=== PATIENT | female | born 1970 | race Caucasian/White ===

== ENCOUNTER 2020-09-18 13:39 | Outpatient (REF) | payer MEDICAID, SELFPAY ==
[2020-09-18 15:13] LABS: Free T4 (Free Thyroxine) 0.93 ng/dL (0.71-1.85); Thyroid Stimulating Hormone 1.54 mIU/mL (0.32-4.0)
== END 2020-09-18 13:40 | disposition home or self-care (01) ==
LOC: HO.LAB 13:39
PROVIDERS: PCP Internal Medicine Geriatric Medicine; Visit Provider Internal Medicine Endocrinology, Diabetes & Metabolism
DX: E03.9 Hypothyroidism, unspecified (principal)
CPT/HCPCS: 84439; 84443

== ENCOUNTER → 2020-09-24 08:42 | Outpatient (BNVA) | payer MEDICAID, SELFPAY | PROVIDERS: PCP Internal Medicine Geriatric Medicine; Referring Provider Internal Medicine Geriatric Medicine; Visit Provider Internal Medicine Endocrinology, Diabetes & Metabolism | DX: E03.8 Other specified hypothyroidism (principal); E06.3 Autoimmune thyroiditis; E55.9 Vitamin D deficiency, unspecified; Z79.899 Other long term (current) drug therapy | CPT/HCPCS: 99212 ==

== ENCOUNTER 2020-12-15 14:25 | Outpatient (REF) | payer MEDICAID, SELFPAY ==
--- NOTE | 2020-12-15 | US_ITS ---
EXAMINATION: US RETROPERITONEAL LIMITED (RENAL ONLY) CLINICAL INFORMATION: History of renal calculi.. COMPARISON: CT abdomen and pelvis dated 03/25/2020; renal ultrasound dated 03/13/2020. TECHNIQUE: Real-time imaging of the kidneys. FINDINGS: RIGHT KIDNEY: 1.8 x 5.9 x 6.7 cm (SAG x AP x TRV). The kidney is normal in size, contour, and echogenicity. Renal cortical thickness is normal. No calculi or focal parenchymal lesions. There is mild hydronephrosis. LEFT KIDNEY: 10.0 x 5.3 x 5.4 cm (SAG x AP x TRV). The kidney is normal in size, contour, and echogenicity. Renal cortical thickness is normal. No calculi or focal parenchymal lesions. No hydronephrosis. US/US renal BI IMPRESSION: There is mild right hydronephrosis. No left hydronephrosis is seen. No renal calculus is seen bilaterally.
== END 2020-12-15 14:26 | disposition home or self-care (01) ==
LOC: HO.US 14:25
PROVIDERS: PCP Internal Medicine Geriatric Medicine; Visit Provider Urology
DX: N20.0 Calculus of kidney (principal)
CPT/HCPCS: 76775

== ENCOUNTER → 2021-01-01 08:36 | Outpatient (BNVA) | payer MEDICAID, SELFPAY | PROVIDERS: PCP Internal Medicine Geriatric Medicine; Visit Provider Obstetrics & Gynecology | DX: Z01.419 Encounter for gynecological examination (general) (routine) without abnormal findings (principal); N92.1 Excessive and frequent menstruation with irregular cycle; N89.8 Other specified noninflammatory disorders of vagina; N39.0 Urinary tract infection, site not specified; R31.29 Other microscopic hematuria | CPT/HCPCS: 81002 ==

== ENCOUNTER 2021-01-01 10:31 | Outpatient (REF) | payer MEDICAID, SELFPAY ==
[2021-01-01 12:03] LABS: Free T4 (Free Thyroxine) 0.91 ng/dL (0.71-1.85); Thyroid Stimulating Hormone 2.17 uIU/mL (0.32-4.0)
== END 2021-01-01 10:32 | disposition home or self-care (01) ==
LOC: HO.10HDL 10:31
PROVIDERS: Visit Provider Internal Medicine Endocrinology, Diabetes & Metabolism
DX: Z01.419 Encounter for gynecological examination (general) (routine) without abnormal findings (principal); E55.9 Vitamin D deficiency, unspecified; N89.8 Other specified noninflammatory disorders of vagina; N39.0 Urinary tract infection, site not specified; Z11.3 Encounter for screening for infections with a predominantly sexual mode of transmission; Z11.8 Encounter for screening for other infectious and parasitic diseases
CPT/HCPCS: 36415; 84439; 84443

== ENCOUNTER 2021-01-01 15:29 | Outpatient (REF) | payer MEDICAID, SELFPAY ==
[2021-01-02 08:24] LABS: BV Int Neg Control Negative (Negative); BV Int Pos Control Positive (Positive)
[2021-01-02 14:56] LABS: C. trachomatis RNA TMA NOT DETECTED (NOT DETECTED); N. gonorrhoeae RNA TMA NOT DETECTED (NOT DETECTED)
== END 2021-01-01 15:30 | disposition home or self-care (01) ==
LOC: HO.LNP 15:29
PROVIDERS: Visit Provider Obstetrics & Gynecology
DX: Z01.419 Encounter for gynecological examination (general) (routine) without abnormal findings (principal); E55.9 Vitamin D deficiency, unspecified; N89.8 Other specified noninflammatory disorders of vagina; N39.0 Urinary tract infection, site not specified; Z11.3 Encounter for screening for infections with a predominantly sexual mode of transmission; Z11.8 Encounter for screening for other infectious and parasitic diseases
CPT/HCPCS: 87086; 87147; 87480; 87491; 87510; 87591; 87660

== ENCOUNTER 2021-01-06 09:43 | Outpatient (REF) | payer MEDICAID, SELFPAY ==
--- NOTE | ~2021-01-06 | US_ITS ---
EXAMINATION: US PELVIS, COMPLETE US TRANSVAGINAL CLINICAL INFORMATION: Irregular menses. Clinical history of endometrial hyperplasia. Patient has Mirena IUD. COMPARISON: 03/13/2020 TECHNIQUE: Transabdominal and transvaginal imaging was performed. FINDINGS: Uterus is retroverted and retroflexed, measuring 9.2 x 5.8 x 5.9 cm. Hypoechoic lesion in the fundus measuring 0.6 x 0.5 x 0.7 cm. Endometrial thickness is difficult to measure given the presence of IUD, estimated to be approximately 1.1 cm. There is an IUD present, which appears to be appropriately positioned within the endometrial canal. Right ovary measures 2.2 x 1 x 1 cm. Volume 1.2 mL. Vascular flow demonstrated. Left ovary measures 3.4 x 2.4 x 3.4 cm. Volume 13.9 mL. Vascular flow demonstrated. There is a complex heterogeneous focus with mixed isoechoic and hypoechoic echotexture, in the left ovary measuring 2.9 x 2.3 x 2.8 cm. Some internal vascularity is seen. This finding is new as compared to the prior ultrasound of 03/13/2020. No free fluid in the cul-de-sac. US/US pelvic complete IMPRESSION: 1. Complex heterogeneous lesion in the left ovary measuring 2.9 x 2.3 x 2.8 cm. There is some internal vascularity noted. This finding is new as compared to the prior ultrasound of 03/13/2020. This could represent a complex cystic lesion versus a solid lesion. Recommend followup ultrasound in 6 weeks for reassessment. 2. IUD present, which appears appropriately positioned within the endometrial canal. As a result, the endometrial thickness is difficult to measure, estimated approximately 1.1 cm. 3. Small nonspecific hypoechoic lesion in the uterine fundus measuring 0.6 x 0.5 x 0.7 cm. This could represent a small fibroid.
--- NOTE | ~2021-01-06 | US_ITS ---
EXAMINATION: US PELVIS, COMPLETE US TRANSVAGINAL CLINICAL INFORMATION: Irregular menses. Clinical history of endometrial hyperplasia. Patient has Mirena IUD. COMPARISON: 03/13/2020 TECHNIQUE: Transabdominal and transvaginal imaging was performed. FINDINGS: Uterus is retroverted and retroflexed, measuring 9.2 x 5.8 x 5.9 cm. Hypoechoic lesion in the fundus measuring 0.6 x 0.5 x 0.7 cm. Endometrial thickness is difficult to measure given the presence of IUD, estimated to be approximately 1.1 cm. There is an IUD present, which appears to be appropriately positioned within the endometrial canal. Right ovary measures 2.2 x 1 x 1 cm. Volume 1.2 mL. Vascular flow demonstrated. Left ovary measures 3.4 x 2.4 x 3.4 cm. Volume 13.9 mL. Vascular flow demonstrated. There is a complex heterogeneous focus with mixed isoechoic and hypoechoic echotexture, in the left ovary measuring 2.9 x 2.3 x 2.8 cm. Some internal vascularity is seen. This finding is new as compared to the prior ultrasound of 03/13/2020. No free fluid in the cul-de-sac. US/US transvaginal IMPRESSION: 1. Complex heterogeneous lesion in the left ovary measuring 2.9 x 2.3 x 2.8 cm. There is some internal vascularity noted. This finding is new as compared to the prior ultrasound of 03/13/2020. This could represent a complex cystic lesion versus a solid lesion. Recommend followup ultrasound in 6 weeks for reassessment. 2. IUD present, which appears appropriately positioned within the endometrial canal. As a result, the endometrial thickness is difficult to measure, estimated approximately 1.1 cm. 3. Small nonspecific hypoechoic lesion in the uterine fundus measuring 0.6 x 0.5 x 0.7 cm. This could represent a small fibroid.
== END 2021-01-06 09:44 | disposition home or self-care (01) ==
LOC: HO.HMGCX 09:43
PROVIDERS: Visit Provider Obstetrics & Gynecology
DX: N92.1 Excessive and frequent menstruation with irregular cycle (principal)
CPT/HCPCS: 76830; 76856

== ENCOUNTER 2021-01-12 07:44 | Outpatient (REF) | payer MEDICAID, SELFPAY ==
[2021-01-12 10:40] LABS: HCG Quantitative < 2 mIU/mL; Thyroid Stimulating Hormone 1.35 uIU/mL (0.32-4.0)
== END 2021-01-12 07:45 | disposition home or self-care (01) ==
LOC: HO.LAB 07:44
PROVIDERS: PCP Internal Medicine Geriatric Medicine; Visit Provider Obstetrics & Gynecology
DX: N92.1 Excessive and frequent menstruation with irregular cycle (principal); R31.29 Other microscopic hematuria; R39.15 Urgency of urination
CPT/HCPCS: 36415; 58100; 81002; 84443; 84702; 87086; 88305; 99212

== ENCOUNTER 2021-01-17 11:58 | Emergency (ER) | payer MEDICAID, SELFPAY ==
--- NOTE | ~2021-01-17 | CT_ITS ---
EXAMINATION: CT ABDOMEN AND PELVIS WITHOUT CONTRAST CLINICAL INFORMATION: Right-sided flank pain. COMPARISON: Most recent prior CT of the abdomen and pelvis done on 03/25/2020. TECHNIQUE: Multidetector volumetric imaging was performed from the superior aspect of the liver through the pubic symphysis. Sagittal and coronal reformatted images were obtained on the technologist's workstation. This CT examination was performed using dose optimization techniques as appropriate, variously including the following: *Automated exposure control *Adjustment of mA and/or kV according to patient size (this includes techniques or standardized protocols for targeted exams where dose is matched to indication/reason for exam; i.e. extremities or head) *Use of iterative reconstruction technique DLP: 469.0 mGy-cm FINDINGS: LUNG BASES: The visualized lung bases are unremarkable. LIVER, GALLBLADDER, AND BILIARY TREE: The liver is normal in size, shape, and attenuation. No focal hepatic lesion or biliary ductal dilatation is present. The gallbladder is unremarkable with no evidence of radiopaque gallstones, gallbladder wall thickening, or obvious pericholecystic inflammatory changes. PANCREAS: Unremarkable. SPLEEN: Unremarkable. ADRENAL GLANDS: Unremarkable. KIDNEYS AND URETERS: The kidneys are normal in size, shape, and attenuation. No hydronephrosis, hydroureter, or calculi seen. No perinephric stranding. Previously documented extrarenal pelvis on the right appear unchanged. BLADDER: Suboptimally distended, grossly appears unremarkable. GASTROINTESTINAL TRACT: Interval development of pericolonic inflammatory changes are noted within the proximal part of the posterior aspect of the ascending colon with underlying colonic diverticuli. The appendix appear normal in caliber and is extending along the posterior aspect of the proximal ascending colon with its tips abutting the site of the inflammatory changes. The findings are most consistent with acute noncomplicated ascending colonic diverticulitis rather than tip appendicitis. No evidence of any pericolonic fluid collection. The remainder of the large bowel shows scattered colonic diverticuli, similar to prior study without evidence of any inflammatory changes. The stomach, the small bowel loops are decompressed. ABDOMINAL WALL: No significant hernia is appreciated. LYMPH NODES: Normal. VASCULAR: Unremarkable. PELVIC VISCERA: Intrauterine contraceptive device is present, appear in good position. The uterus is retroverted. There is no evidence of any adnexal mass seen on either side. There is no free fluid and/or free air. OSSEOUS STRUCTURES: Subtle grade 1 retrolisthesis of L4 over L5. Mild diffuse osteopenia. No suspicious focal lesion. CT/CT abdomen pelvis wo con IMPRESSION: 1. Compared to most recent prior CT of the abdomen and pelvis dated 03/25/2020, interval development of inflammatory changes are noted predominantly along the posterior aspect of the proximal ascending colon with underlying colonic diverticuli. The tip of the appendix which is extending along the posterior aspect of the ascending colon is abutting the site of the inflammatory changes. The findings are more consistent with focal acute proximal ascending colonic diverticulitis and less likely to be tip appendicitis. No evidence of any pericolonic or periappendiceal fluid collection or microperforation. 2. No other significant change since the prior study dated 03/25/2020.
[2021-01-17 12:07] VITALS: BP 128/78; PULSE 87; RESP 16; TEMP 36.7; O2SAT 97; BMI 27.5
[2021-01-17 12:58] LABS: Eosinophils Absolute Auto 0.1 X10*3/uL (0.0-0.4); Eosinophils Percent Auto 1.5 % (0-4); Imm Gran Abs Auto 0.03 X10*3/uL (0.00-0.03); Imm Gran Pct Auto 0.4 % (0.0-0.4); Mean Platelet Volume 13.2 fL (9.4-12.3); SCAN SMEAR FLAG 1; WBC ABN SCTR 1
[2021-01-17 13:00] LABS: Basophils Absolute Auto 0.1 X10*3/uL (0.0-0.2); Basophils Percent Auto 0.7 % (0-2); Hematocrit 39.3 % (37-47); Hemoglobin 12.7 g/dl (12.0-16.0); Lymphocytes Absolute Auto 2.1 X10*3/uL (1.2-4.9); Lymphocytes Percent Auto 28.8 % (20-40); Mean Corpuscular HGB Conc 32.3 g/dl (31.0-35.0); Mean Corpuscular Hemoglobin 28.6 pg (27.0-33.0); Mean Corpuscular Volume 88.5 fL (80-98); Monocytes Absolute Auto 0.6 X10*3/uL (0.1-1.2); Monocytes Percent Auto 8.3 % (2-11); Neutrophils Absolute Auto 4.4 X10*3/uL (2.0-8.3); Neutrophils Percent Auto 60.3 % (45-73); Platelet Count 146 X10*3/uL (160-400); Red Blood Count 4.44 X10*6/uL (4.20-5.50)
[2021-01-17 13:04] LABS: Glucose Urine UA NEG (NEG); Leukocyte Esterase Urine NEG (NEG); Nitrite Urine NEG (NEG); Specific Gravity - Urine 1.025 (1.005-1.025); Urine Blood NEG (NEG); Urine Ketones NEG (NEG); Urine Protein 2+ MG/DL (NEG-TRACE)
[2021-01-17 13:08] LABS: PLT ABN DIST 1; WBC ABN SCTR FOR CBC 1; White Blood Count 7.2 X10*3/uL (4.8-10.8)
[2021-01-17 13:09] LABS: Appearance Urine CLEAR; Color Urine YELLOW
[2021-01-17 13:19] LABS: RBC Urine 0-2 /HPF (0); Squamous Epithelial Cell Urine 1+ /LPF; WBC Urine 0-2 /HPF (0-4)
--- NOTE | 2021-01-17 13:34 | ED_ITS ---
HPI - General Adult General Chief complaint: Abdominal Pain Stated complaint: KIDNEY STONE PAIN Time Seen by Provider: 01/17/21 12:28 Source: patient Mode of arrival: ambulatory Limitations: no limitations History of Present Illness HPI narrative: Patient comes to the emergency room complaining of right-sided flank pain. Patient states she has been having flank pain and frequent urination for the last 4 days, denies vomiting, no diarrhea no fever, no abdominal pain. Patient states that she saw her OBGYN a few days ago, a urinalysis was ordered, states that she was diagnosed with a UTI and antibiotic was prescribed, states she finished a course of antibiotics. Patient states the flank pain she is feeling, is familiar to her, as she has had multiple kidney stones and lithotripsies. Related Data Home Medications Medication Instructions Recorded Confirmed acetaminophen 500 mg tablet 500 mg PO Q6H PRN 09/24/20 09/24/20 levonorgestrel 20 mcg/24 hours (6 INTRAUTERINE 01/01/21 01/01/21 yrs) 52 mg intrauterine device Previous Rx's Medication Instructions Recorded cholecalciferol (vitamin D3) 50 50 mcg PO DAILY 90 Days #90 cap 09/24/20 mcg (2,000 unit) capsule Levoxyl 75 mcg tablet 75 mcg PO DAILY #30 tab NS 09/26/20 nitrofurantoin 100 mg PO BID 5 Days #10 cap 01/01/21 monohydrate/macrocrystals 100 mg capsule levofloxacin 500 mg PO DAILY #9 tab 01/17/21 metronidazole 500 mg PO BID #19 tab 01/17/21 Allergies Allergy/AdvReac Type Severity Reaction Status Date / Time No Known Allergies Allergy Verified 01/12/21 08:23 [No Known Allergies*] Review of Systems Review of Systems: Constitutional : No Weight loss, No Fever, No Chills, No Night Sweats, No Fatigue, No Malaise ENT/Mouth : No Hearing loss, No Ear Pain, No Nasal Congestion, No Sinus Pain, No Hoarseness, No sore throat, No Rhinorrhea, No Swallowing Difficulty Eyes: No Eye Pain, No Swelling, No Redness, No Foreign Body, No Discharge, No Vision Changes Cardiovascular : No Chest Pain, No SOB, No Dyspnea on Exertion, No Orthopnea, No Edema, No Palpitations Respiratory : No Cough, No Sputum, No Wheezing, No Smoke Exposure, No Dyspnea Gastrointestinal : No Nausea, No Vomiting, No Diarrhea, No Constipation, No abdominal Pain, No Hematochezia, No Melena. Complaining of right-sided flank pain with no radiation, intermittent, sharp Genitourinary : no irregular bleeding, complaining of dysuria for 4 days , No Urinary Frequency, No Hematuria, No Urinary Incontinence, No Urgency, No Flank Pain, No Urinary Flow Changes, No Hesitancy Musculoskeletal : No joint pain, No Myalgias, No Joint Swelling Skin : No Skin Lesions, No rash Neuro : No Weakness, No Numbness, No Paresthesias, No Loss of Consciousness, No Dizziness, No Headache Psych : No Anxiety/Panic, No Depression, No SI/HI/AH/VH, No Social Issues, Heme/Lymph: No Bruising, No Bleeding,No Lymphadenopathy Endocrine : No Polyuria, No Polydipsia, No Temperature Intolerance PMFSH Past Medical History Medical History Hypothyroidism Kidney stone Vitamin D deficiency Surgical History Hx of colonoscopy Hx of esophagogastroduodenoscopy Tubal ligation status Family History Family History Father Hypertension Respiratory failure Mother Pancreatic cancer Social History Social History Smoking Status: Never smoker Smoked in Last 30 Days: No Use of substances other than those prescribed or required for medical reasons: No Advance Directives: Yes Advance Directives Information Provided: Yes Advance Directives on File: No Physical Exam Vital Signs: Vital Signs: Last Vital Signs Temp 98.0 F 01/17/21 12:07 Pulse 87 01/17/21 12:07 Resp 16 01/17/21 12:07 BP 128/78 01/17/21 12:07 Pulse Ox 97 01/17/21 12:07 Body Mass Index 27.5 Appearance: Alert. Oriented X3. No acute distress. Eyes: Pupils equal, round and reactive to light. ENT: Pharynx normal. Neck: Normal inspection. Neck supple. No lymph nodes noted. No crepitus CVS: Normal heart rate and rhythm. Pulses normal. Normal S1 and S2 Respiratory: No respiratory distress. Breath sounds normal. No Wheezing. No rales Abdomen: Soft and nontender. No rigidity. No distention. Back: Mild right lower back pain, positive CVA tenderness on the right side Skin: Skin warm and dry. Normal skin color. Normal skin turgor. Extremities: No lower extremity edema. No lower extremity edema. No Lacerations. No Rash Neuro: Oriented X 3. No motor deficit. No sensory deficit. Moving all extermities. No slurred speech. Course Course Course Narrative: I discussed the labs and imaging with the patient, patient does not have stones, however she has diverticulitis in the ascending colon, unlikely to be appendicitis. I discussed with the patient that this still may b e early appendicitis but it is unlikely. If she has any worsening pain she was instructed to return to the emergency room. She was given the 1st dose of p.o. antibiotic in the emergency room, levofl oxacin and metronidazole Medical Decision Making Lab Data Result diagrams: 01/17/21 12:51 01/17/21 12:51 Labs: Lab Results 01/17/21 01/17/21 01/17/21 Range/Units 12:51 12:51 12:51 WBC 7.2 (4.8-10.8) X10*3/uL RBC 4.44 (4.20-5.50) X10*6/uL Hgb 12.7 (12.0-16.0) g/dl Hct 39.3 (37-47) % MCV 88.5 (80-98) fL MCH 28.6 (27.0-33.0) pg MCHC 32.3 (31.0-35.0) g/dl RDW 13.0 (11.0-16.0) % Plt Count 146 L (160-400) X10*3/uL MPV 13.2 H (9.4-12.3) fL Immature Gran % (Auto) 0.4 (0.0-0.4) % Neut % (Auto) 60.3 (45-73) % Lymph % (Auto) 28.8 (20-40) % [place] % (Auto) 8.3 (2-11) % Eos % (Auto) 1.5 (0-4) % Baso % (Auto) 0.7 (0-2) % Lymph # (Auto) 2.1 (1.2-4.9) X10*3/uL [place] # (Auto) 0.6 (0.1-1.2) X10*3/uL Eos # (Auto) 0.1 (0.0-0.4) X10*3/uL Baso # (Auto) 0.1 (0.0-0.2) X10*3/uL Abs Immat Gran (auto) 0.03 (0.00-0.03) X10*3/uL Absolute Neuts (auto) 4.4 (2.0-8.3) X10*3/uL Absolute Nucleated RBC 0.000 (0.0-0.012) X10*3/uL Nucleated RBC % (auto) 0.0 (0.0-0.2) /100WBC Sodium 139 (135-145) mmol/L Potassium 4.1 (3.3-5.1) mmol/L Chloride 103 (96-108) mmol/L Carbon Dioxide 30 H (22-29) mmol/L Anion Gap 10 L (12-20) BUN 10 (9-16) mg/dL Creatinine 0.81 (0.5-1.4) mg/dL Estim Creat Clear Calc 67.7 Estimated GFR > 60 Random Glucose 103 (60-115) mg/dL Calcium 9.1 (8.4-10.2) mg/dL Urine Color YELLOW Urine Appearance CLEAR Urine pH 7.0 (5.0-8.0) Ur Specific [place] 1.025 (1.005-1.025) Urine Protein 2+ H (NEG-TRACE) MG/DL Urine Glucose (UA) NEG (NEG) MG/DL Urine Ketones NEG (NEG) MG/DL Urine Blood NEG (NEG) Urine Nitrite NEG (NEG) Ur Leukocyte Esterase NEG (NEG) Urine RBC 0-2 (0) /HPF Urine WBC 0-2 (0-4) /HPF Ur Squamous Epith Cells 1+ /LPF Urine Bacteria NONE /LPF Imaging Data CT scan - abdomen: Radiologist's impression: FINDINGS: LUNG BASES: The visualized lung bases are unremarkable. LIVER, GALLBLADDER, AND BILIARY TREE: The liver is normal in size, shape, and attenuation. No focal hepatic lesion or biliary ductal dilatation is present. The gallbladder is unremarkable with no evidence of radiopaque gallstones, gallbladder wall thickening, or obvious pericholecystic inflammatory changes. PANCREAS: Unremarkable. SPLEEN: Unremarkable. ADRENAL GLANDS: Unremarkable. KIDNEYS AND URETERS: The kidneys are normal in size, shape, and attenuation. No hydronephrosis, hydroureter, or calculi seen. No perinephric stranding. Previously documented extrarenal pelvis on the right appear unchanged. BLADDER: Suboptimally distended, grossly appears unremarkable. GASTROINTESTINAL TRACT: Interval development of pericolonic inflammatory changes are noted within the proximal part of the posterior aspect of the ascending colon with underlying colonic diverticuli. The appendix appear normal in caliber and is extending along the posterior aspect of the proximal ascending colon with its tips abutting the site of the inflammatory changes. The findings are most consistent with acute noncomplicated ascending colonic diverticulitis rather than tip appendicitis. No evidence of any pericolonic fluid collection. The remainder of the large bowel shows scattered colonic diverticuli, similar to prior study without evidence of any inflammatory changes. The stomach, the small bowel loops are decompressed. ABDOMINAL WALL: No significant hernia is appreciated. LYMPH NODES: Normal. VASCULAR: Unremarkable. PELVIC VISCERA: Intrauterine contraceptive device is present, appear in good position. The uterus is retroverted. There is no evidence of any adnexal mass seen on either side. There is no free fluid and/or free air. OSSEOUS STRUCTURES: Subtle grade 1 retrolisthesis of L4 over L5. Mild diffuse osteopenia. No suspicious focal lesion. CT/CT abdomen pelvis wo con IMPRESSION: 1. Compared to most recent prior CT of the abdomen and pelvis dated 03/25/2020, interval development of inflammatory changes are noted predominantly along the posterior aspect of the proximal ascending colon with underlying colonic diverticuli. The tip of the appendix which is extending along the posterior aspect of the ascending colon is abutting the site of the inflammatory changes. The findings are more consistent with focal acute proximal ascending colonic diverticulitis and less likely to be tip appendicitis. No evidence of any pericolonic or periappendiceal fluid collection or microperforation. 2. No other significant change since the prior study dated 03/25/2020. Discharge Plan Discharge Clinical Impression: Diverticulitis Patient Disposition: Home, Self-Care Instructions: Diverticulitis (ED) Additional Instructions: If you have worsening pain, or not improving within 24-48 hours, please return to the emergency room. Please drink plenty of fluids, and increased your fiber intake. Please follow-up with your primary care physician tomorrow. If you have any worsening or new symptoms, please return to the emergency room or call 911 Prescriptions: New levofloxacin 500 mg tablet 500 mg PO DAILY Qty: 9 RF: 0 metronidazole 500 mg tablet 500 mg PO BID Qty: 19 RF: 0 No Action levothyroxine [Levoxyl] 75 mcg tablet 75 mcg PO DAILY Qty: 30 RF: 11 acetaminophen [Tylenol Extra Strength] 500 mg tablet 500 mg PO Q6H PRNRF: 0 cholecalciferol (vitamin D3) 50 mcg (2,000 unit) capsule 50 mcg PO DAILY 90 Days Qty: 90 RF: 3 Mirena 20 mcg/24 hours (6 yrs) 52 mg intrauterine device intrauterine RF: 0 nitrofurantoin monohyd/m-cryst [Macrobid] 100 mg capsule 100 mg PO BID 5 Days Qty: 10 RF: 0
[2021-01-17 13:40] LABS: Anion Gap 10 (12-20); Blood Urea Nitrogen 10 mg/dL (9-16); Calcium 9.1 mg/dL (8.4-10.2); Carbon Dioxide 30 mmol/L (22-29); Chloride 103 mmol/L (96-108); Creatinine Clr Calc Pharmacy 67.7; Estimated Glomerular Filt Rate > 60; Glucose Random 103 mg/dL (60-115); Potassium 4.1 mmol/L (3.3-5.1); Sodium 139 mmol/L (135-145)
[2021-01-17] MEDS: levoFLOXacin 500 MG TABLET PO (14:52)
[2021-01-17] MEDS: metroNIDAZOLE 500 MG TABLET PO (14:52)
[2021-01-17 14:53] VITALS: BP 126/83; PULSE 79; RESP 16; O2SAT 98
== END 2021-01-17 15:19 | disposition home or self-care (01) ==
PROVIDERS: Emergency Provider Emergency Medicine; PCP Internal Medicine Geriatric Medicine
DX: K57.32 Diverticulitis of large intestine without perforation or abscess without bleeding (principal); Z87.442 Personal history of urinary calculi
CPT/HCPCS: 36415; 74176; 80048; 81001; 81003; 85025; 99284

== ENCOUNTER → 2021-01-29 16:08 | Outpatient (BNVA) | payer MEDICAID, SELFPAY | PROVIDERS: Visit Provider Obstetrics & Gynecology | DX: N89.8 Other specified noninflammatory disorders of vagina (principal); N39.0 Urinary tract infection, site not specified; N92.1 Excessive and frequent menstruation with irregular cycle; Z01.419 Encounter for gynecological examination (general) (routine) without abnormal findings ==

== ENCOUNTER 2021-02-04 08:17 | Outpatient (REF) | payer MEDICAID, SELFPAY | END 2021-02-04 08:18 | disposition home or self-care (01) | LOC: HO.LAB 08:17 | PROVIDERS: Visit Provider Obstetrics & Gynecology | DX: R31.29 Other microscopic hematuria (principal); N92.1 Excessive and frequent menstruation with irregular cycle; Z32.02 Encounter for pregnancy test, result negative | CPT/HCPCS: 58100; 81025; 88305 ==

== ENCOUNTER → 2021-02-18 10:59 | Outpatient (BNVA) | payer MEDICAID, SELFPAY | PROVIDERS: PCP Internal Medicine Geriatric Medicine; Visit Provider Obstetrics & Gynecology ==

== ENCOUNTER → 2021-03-12 09:50 | Outpatient (BNVA) | payer MEDICAID, SELFPAY | PROVIDERS: PCP Internal Medicine Geriatric Medicine; Visit Provider Urology | DX: N20.0 Calculus of kidney (principal) | CPT/HCPCS: 99212 ==

== ENCOUNTER 2021-03-26 14:19 | Outpatient (REF) | payer MEDICAID, SELFPAY ==
--- NOTE | ~2021-03-26 | US_ITS ---
EXAMINATION: ULTRASOUND PELVIC, COMPLETE CLINICAL INFORMATION: Left ovarian cyst follow-up. COMPARISON: Multiple prior studies. Most recent exam Pelvic ultrasound 03/13/2020, 01/06/2021. CT abdomen pelvis 01/17/2021 TECHNIQUE: Transvaginal: Used to better visualize pelvic structures Transabdominal: Not adequate for visualization Spectral Doppler and color Doppler exam was utilized. LMP: IUD FINDINGS: UTERUS: Uterus of normal size and contour. Uterus measures 7.4 x 5.1 x 5.1 cm. The uterus is retroflexed. IUD in the endometrial cavity in good position. At the fundus of the uterus there is a myometrial fibroid measuring 0.9 x 1.1 x 1 cm. ADNEXA: Ovarian vascularity:Doppler demonstrates both arterial and venous vascular flow in the right and left ovary. No evidence of ovarian torsion. Right Ovary: 2.6 x 2.2 x 1 cm. Volume 3 mL Left Ovary: 3.8 x 2.3 x 3 cm. Left ovarian volume 13.7 mL. There is a hypoechoic rounded mass in the left ovary measuring 2.5 x 3 x 3 cm. Color Doppler vascular flow seen within internal septa. There is low level echoes in the lesion. Lesion does have enhanced through transmission. This may be a complex cyst with thickened septa versus a solid lesion. This lesion was present on the pelvic ultrasound study of 01/06/2021. Previous measurement 2.9 x 2.3 x 2.8 cm. Cul-de-sac: No Fluid US/US pelvic complete IMPRESSION: Persistent lesion in the left ovary . Complex cyst with thickened septa versus solid lesion. This has not changed since the prior ultrasound study of 01/06/2021. Consider surgical consult.
--- NOTE | ~2021-03-26 | US_ITS ---
EXAMINATION: ULTRASOUND PELVIC, COMPLETE CLINICAL INFORMATION: Left ovarian cyst follow-up. COMPARISON: Multiple prior studies. Most recent exam Pelvic ultrasound 03/13/2020, 01/06/2021. CT abdomen pelvis 01/17/2021 TECHNIQUE: Transvaginal: Used to better visualize pelvic structures Transabdominal: Not adequate for visualization Spectral Doppler and color Doppler exam was utilized. LMP: IUD FINDINGS: UTERUS: Uterus of normal size and contour. Uterus measures 7.4 x 5.1 x 5.1 cm. The uterus is retroflexed. IUD in the endometrial cavity in good position. At the fundus of the uterus there is a myometrial fibroid measuring 0.9 x 1.1 x 1 cm. ADNEXA: Ovarian vascularity:Doppler demonstrates both arterial and venous vascular flow in the right and left ovary. No evidence of ovarian torsion. Right Ovary: 2.6 x 2.2 x 1 cm. Volume 3 mL Left Ovary: 3.8 x 2.3 x 3 cm. Left ovarian volume 13.7 mL. There is a hypoechoic rounded mass in the left ovary measuring 2.5 x 3 x 3 cm. Color Doppler vascular flow seen within internal septa. There is low level echoes in the lesion. Lesion does have enhanced through transmission. This may be a complex cyst with thickened septa versus a solid lesion. This lesion was present on the pelvic ultrasound study of 01/06/2021. Previous measurement 2.9 x 2.3 x 2.8 cm. Cul-de-sac: No Fluid US/US transvaginal IMPRESSION: Persistent lesion in the left ovary . Complex cyst with thickened septa versus solid lesion. This has not changed since the prior ultrasound study of 01/06/2021. Consider surgical consult.
== END 2021-03-26 14:20 | disposition home or self-care (01) ==
LOC: HO.US 14:19
PROVIDERS: Visit Provider Obstetrics & Gynecology
DX: N83.292 Other ovarian cyst, left side (principal)
CPT/HCPCS: 76830; 76856

== ENCOUNTER 2021-03-27 14:43 | Outpatient (REF) | payer MEDICAID, SELFPAY ==
[2021-03-27 15:52] LABS: Free T4 (Free Thyroxine) 0.93 ng/dL (0.71-1.85); Thyroid Stimulating Hormone 1.22 uIU/mL (0.32-4.0)
[2021-03-28 10:07] LABS: CA-125 25 U/mL (<35)
== END 2021-03-27 14:44 | disposition home or self-care (01) ==
LOC: HO.LAB 14:43
PROVIDERS: Internal Medicine Endocrinology, Diabetes & Metabolism; PCP Internal Medicine Geriatric Medicine; Visit Provider Obstetrics & Gynecology
DX: N83.292 Other ovarian cyst, left side (principal); E55.9 Vitamin D deficiency, unspecified
CPT/HCPCS: 36415; 84439; 84443; 86304

== ENCOUNTER → 2021-04-10 10:21 | Outpatient (BNVA) | payer MEDICAID, SELFPAY | PROVIDERS: Visit Provider Obstetrics & Gynecology ==

== ENCOUNTER 2021-04-16 11:41 | Outpatient (REF) | payer MEDICAID, SELFPAY ==
--- NOTE | ~2021-04-16 | MM_ITS ---
EXAMINATION: MM DIAGNOSTIC DIGITAL BREAST TOMOSYNTHESIS, BILATERAL CLINICAL INFORMATION: Due for yearly. Also follow-up probable benign calcifications central right breast. The lifetime risk of breast cancer based on the Tyrer-Cuzick Model is 6%. COMPARISON: Mammography: 04/15/2020, 09/27/2019, 03/26/2019, 02/13/2019 (BI-RADS 0), 01/17/2018, 01/09/2018, 01/06/2017, 12/17/2016, 11/26/2015 TECHNIQUE: Digital breast tomosynthesis is performed in both the craniocaudal and mediolateral oblique views along with computer-aided detection (CAD). Synthesized 2D images are generated from the tomosynthesis. Additional magnification right CC magnified right ML x2 views are obtained. FINDINGS: There are scattered areas of fibroglandular density (ACR BI-RADS breast composition Category b). Breast tissue composition borders on average fibroglandular. There is inhomogeneous parenchymal pattern similar to prior exams. There is no developing density or interval mass or architectural abnormality. The axilla and skin contours are unremarkable. Calcifications central and upper right breast for follow-up are stable from prior recent diagnostic exams and now considered benign. Most of the calcifications also present on more remote right magnification views from 2017. There are no increasing calcifications over recent surveillance. There are some milk of calcium calcifications suggested on the ML views. This concludes the surveillance and calcifications are considered benign. Results are provided to the patient at time of visit by the technologist. MM/MM tomosynthesis diagnostic BI IMPRESSION: There are no significant changes from prior study. Right breast calcifications stable and now considered benign. ASSESSMENT: BI-RADS 2: Benign RECOMMENDATION: Routine annual mammography screening. This patient's information was entered into a reminder system with a target due date for their next mammogram.
== END 2021-04-16 11:42 | disposition home or self-care (01) ==
LOC: HO.MAMMO 11:41
PROVIDERS: Visit Provider Internal Medicine Geriatric Medicine
DX: Z01.419 Encounter for gynecological examination (general) (routine) without abnormal findings (principal); R92.1 Mammographic calcification found on diagnostic imaging of breast
CPT/HCPCS: 77062; 77066

== ENCOUNTER → 2021-06-15 10:49 | Outpatient (BNVA) | payer MEDICAID, SELFPAY | PROVIDERS: PCP Internal Medicine Geriatric Medicine; Referring Provider Internal Medicine Geriatric Medicine; Visit Provider Nurse Practitioner Family | DX: K59.01 Slow transit constipation (principal); K21.9 Gastro-esophageal reflux disease without esophagitis | CPT/HCPCS: 99202 ==

== ENCOUNTER 2021-06-23 14:59 | Outpatient (REF) | payer MEDICAID, SELFPAY ==
--- NOTE | ~2021-06-23 | US_ITS ---
EXAMINATION: US RETROPERITONEAL COMPLETE (RENAL) CLINICAL INFORMATION: Dysuria. Renal calculus. COMPARISON: CT abdomen and pelvis 01/17/2021. Renal ultrasound 12/15/2020 and 03/13/2020. X-ray abdomen KUB 08/29/2019. TECHNIQUE: Real-time imaging of the kidneys and bladder. FINDINGS: RIGHT KIDNEY: 12.5 x 5.7 x 5.0 cm (SAG x AP x TRV). The kidney is normal in size, contour, and echogenicity. Renal cortical thickness is normal. No renal calculi or focal parenchymal lesions. There is mild hydronephrosis. LEFT KIDNEY: 10.1 x 5.9 x 5.0 cm (SAG x AP x TRV). The kidney is normal in size, contour, and echogenicity. Renal cortical thickness is normal. No calculi or focal parenchymal lesions. No hydronephrosis. BLADDER: Well distended and normal. Bilateral ureteral jets are demonstrated. Prevoid bladder volume is 335 mL. Postvoid bladder volume is 9.5 mL. US/US retroperitoneal comp IMPRESSION: There is mild right hydronephrosis.
== END 2021-06-23 15:00 | disposition home or self-care (01) ==
LOC: HO.US 14:59
PROVIDERS: Visit Provider Internal Medicine Geriatric Medicine
DX: N20.0 Calculus of kidney (principal); R10.9 Unspecified abdominal pain; R30.0 Dysuria
CPT/HCPCS: 76770

== ENCOUNTER 2021-07-24 13:36 | Outpatient (REF) | payer MEDICAID, SELFPAY ==
[2021-07-25 15:46] LABS: H Pylori Breath Test Negative (Negative)
== END 2021-07-24 13:37 | disposition home or self-care (01) ==
LOC: CF 13:36
PROVIDERS: Visit Provider Nurse Practitioner Family
DX: K21.9 Gastro-esophageal reflux disease without esophagitis (principal); K59.04 Chronic idiopathic constipation; Z79.899 Other long term (current) drug therapy; Z11.0 Encounter for screening for intestinal infectious diseases
CPT/HCPCS: 36415; 83013; 99212

== ENCOUNTER 2021-07-25 14:22 | Emergency (ER) | payer MEDICAID, SELFPAY ==
--- NOTE | 2021-07-25 17:50 | ECG_ITS ---
Test Reason : HEADACHE Blood Pressure : / mmHG Vent. Rate : 081 BPM Atrial Rate : 081 BPM P-R Int : 148 ms QRS Dur : 082 ms QT Int : 396 ms P-R-T Axes : 058 002 -09 degrees QTc Int : 460 ms Normal sinus rhythm Nonspecific ST and T wave abnormality Prolonged QT Abnormal ECG When compared with ECG of 15-APR-2020 15:59, No significant change was found Referred By: Marichuy Nuñez Electronically Signed By:LIDYA REDD
--- NOTE | 2021-07-25 17:51 | ED.GENADULT ---
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 No chest pain, shortness of breath, cough, fevers, chills, nausea, vomiting, diarrhea, dominant pain. Patient daughter tells me that her grandfather is in [place] and very sick and this is giving her mom a lot of anxiety +anxiety/depression. Denies SI/HI Related Data Home Medications Medication Instructions Recorded Confirmed acetaminophen 500 mg tablet 500 mg PO Q6H PRN 09/24/20 02/18/21 (Tylenol Extra Strength) levonorgestrel 20 mcg/24 hours (6 INTRAUTERINE 01/01/21 02/18/21 yrs) 52 mg intrauterine device (Mirena) Previous Rx's Medication Instructions Recorded cholecalciferol (vitamin D3) 50 50 mcg PO DAILY 90 Days #90 cap 09/24/20 mcg (2,000 unit) capsule Levoxyl 75 mcg tablet 75 mcg PO DAILY #30 tab NS 09/26/20 (levothyroxine) nitrofurantoin 100 mg PO BID 5 Days #10 cap 01/01/21 monohydrate/macrocrystals 100 mg capsule (Macrobid) psyllium husk 0.52 gram capsule 0.52 g PO DAILY #30 cap 06/15/21 (Metamucil) sennosides 8.6 mg tablet (Natural 8.6 mg PO BEDTIME PRN #30 tab 06/15/21 Senna Laxative) hydrocortisone 2.5 % topical cream 1 appl MS BID-QID PRN #30 g 07/24/21 with perineal applicator (Proctosol HC) hydrocortisone 2.5 % topical cream 1 appl MS BID-QID PRN #30 g 07/24/21 with perineal applicator (Proctosol HC) linaclotide 145 mcg capsule 145 mcg PO DAILY #30 cap 07/24/21 (Linzess) lorazepam 0.5 mg tablet (Ativan) 0.5 mg PO BID PRN #8 tab 07/25/21 Allergies Allergy/AdvReac Type Severity Reaction Status Date / Time No Known Allergies Allergy Verified 07/24/21 13:49 [No Known Allergies*] Review of Systems Review of Systems: Yes all other systems are reviewed and are negative Constitutional: Constitutional: Reports no additional constitutional complaints, Denies body ache(s), Denies chills, Denies fever(s), Reports headache(s) and Reports weakness Eyes: Eyes: Reports no additional eye complaints and Denies change in vision ENT: Reports system reviewed and no additional complaints, except as documented, Denies dizziness, Reports headache(s), Denies nasal congestion, Denies nasal discharge and Denies neck pain Cardiovascular: Cardiovascular: Reports no additional cardiovascular complaints, Denies chest pain, Denies leg edema and Denies dyspnea Respiratory: Respiratory: Reports no additional respiratory complaints, Denies cough and Denies dyspnea Gastrointestinal: Gastrointestinal: Reports no additional gastrointestinal complaints, Denies abdominal pain, Denies diarrhea, Denies nausea and Denies vomiting Genitourinary: Genitourinary: Reports no additional female genitourinary complaints and Denies urinary incontinence Musculoskeletal: Musculoskeletal: Reports no additional musculoskeletal complaints, Denies back pain, Denies arthralgias, Denies joint swelling, Denies neck pain, Denies numbness and Denies tingling Integumentary/Breasts: Skin/Breast: Reports system reviewed and no additional complaints, except as docu and Denies rash Neurologic: Reports system reviewed and no additional complaints, except as documented, Denies Abnormal speech present, Denies dizziness, Reports headache(s), Denies numbness, Denies tingling and Reports weakness Psychiatric: Psychiatric: Reports anxiety, Reports depression, Denies homicidal ideation and Denies suicidal ideation [facility] Past Medical History Attestation statement: The following information was validated with the patient. Source: old records reviewed and nursing notes reviewed Medical History GERD (gastroesophageal reflux disease) Heartburn Hypothyroidism Kidney stone Skin lesion of back Vitamin D deficiency Surgical History History of surgery Hx of colonoscopy Hx of esophagogastroduodenoscopy Tubal ligation status Family History Family History Father Hypertension Respiratory failure Mother Pancreatic cancer Social History Social History Advance Directives: No Advance Directives Information Provided: No Physical Exam Vital Signs: Vital Signs: Last Vital Signs Temp 98.7 F 07/25/21 17:58 Pulse 89 07/25/21 17:58 Resp 18 07/25/21 17:58 BP 144/93 H 07/25/21 17:58 Pulse Ox 96 07/25/21 17:58 Body Mass Index 26.4 Const: General: cooperative, healthy appearing, comfortable and no acute distress Orientation/consciousness: patient oriented x3 Limitations: no limitations HENMT: Head: Yes normal to inspection Ears: hearing grossly normal bilaterally General nose exam: Normal external nose present Face and sinus: Yes normal facial exam Mouth: Normal oral and palatal mucosa present Throat: Yes posterior oropharynx normal Eyes: General: appearance normal, both eyes and all related structures Pupils: Equal, round and reactive pupils present Neck: Neck: Yes normal visual inspection, Yes full ROM, Yes no lymphadenopathy and Yes no meningeal signs Chest: Chest palpation & inspection: normal inspection of the chest Resp: Effort & Inspection: normal respiratory effort Auscultation: clear to auscultation bilaterally Cardio: Rate: regular rate Rhythm: regular rhythm Peripheral pulses: Peripheral pulses 2+ throughout GI: Inspection: Yes normal to inspection Palpation (GI): Soft to palpation and nontender Auscultation: normal bowel sounds Back/Spine/Pelvis: Thoracic/Lumbar Spine: thoracic and lumbar spine normal to inspection Skin: General skin exam: no rashes or lesions noted Neuro: General: patient oriented x3, no meningeal signs, no focal motor deficits and normal sensation to monofilament Cranial nerves: Yes CN's II-XII intact bilaterally, Yes Equal, round and reactive pupils present, Yes Bilaterally intact EOM present and Yes Normal facial strength present Cognition (Neuro): normal cognition Speech: No Abnormal speech present Gait exam (Neuro): Normal gait present Motor exam (neuro): 5/5 motor strength present throughout Sensory Exam: Normal double simultaneous stimulation for sensation Extrem: General: Yes normal to inspection, Yes no pedal edema and Yes no calf tenderness Course Course Course Narrative: 51-year-old female here with complaints of headache, feeling generally weak, cold feet, anxious, depressed with multiple life stressors. Her exam is benign. Hemodynamically stable. Normal neuro exam. Will check labs, EKG, COVID screen. Will give APAP for headache and low-dose Ativan reassess 2049-constellation of symptoms with no focal finding. Labs are unremarkable. Patient does have some microscopic hematuria noted on her UA but no other evidence of infection. Will send urine culture and patient is aware we will call her if she requires treatment. She is feeling improved after Tylenol and Ativan. She tells me that she is very stressed that her dad is critically ill in the [facility] [place] and this is contributing to her anxiety and depression. She has no suicidal thoughts and does not feel like she needs to speak to the crisis team. She is here with her daughter who agrees. Will discharge her home with low-dose Ativan and have her follow-up with her primary care doctor. Reviewed worrisome signs and symptoms and when to return to the emergency department. Comfortable discharge home. Medical Decision Making Medical Records Medical records reviewed: Yes I reviewed the patient's medical records. Lab Data Lab results reviewed: Yes I reviewed the patient's lab results. Result diagrams: 07/25/21 18:47 07/25/21 18:47 Labs: Lab Results 07/25/21 07/25/21 07/25/21 Range/Units 18:29 18:47 18:47 WBC 8.8 (4.8-10.8) X10*3/uL RBC 4.49 (4.20-5.50) X10*6/uL Hgb 13.0 (12.0-16.0) g/dl Hct 38.6 (37-47) % MCV 86.0 (80-98) fL MCH 29.0 (27.0-33.0) pg MCHC 33.7 (31.0-35.0) g/dl RDW 12.6 (11.0-16.0) % Plt Count 168 (160-400) X10*3/uL MPV 13.2 H (9.4-12.3) fL Immature Gran % (Auto) 0.5 H (0.0-0.4) % Neut % (Auto) 58.3 (45-73) % Lymph % (Auto) 31.5 (20-40) % Centre % (Auto) 6.1 (2-11) % Eos % (Auto) 2.6 (0-4) % Baso % (Auto) 1.0 (0-2) % Lymph # (Auto) 2.8 (1.2-4.9) X10*3/uL Centre # (Auto) 0.5 (0.1-1.2) X10*3/uL Eos # (Auto) 0.2 (0.0-0.4) X10*3/uL Baso # (Auto) 0.1 (0.0-0.2) X10*3/uL Abs Immat Gran (auto) 0.04 H (0.00-0.03) X10*3/uL Absolute Neuts (auto) 5.1 (2.0-8.3) X10*3/uL Absolute Nucleated RBC 0.000 (0.0-0.012) X10*3/uL Nucleated RBC % (auto) 0.0 (0.0-0.2) /100WBC Sodium 138 (135-145) mmol/L Potassium 4.3 (3.3-5.1) mmol/L Chloride 104 (96-108) mmol/L Carbon Dioxide 24 (22-29) mmol/L Anion Gap 14 (12-20) BUN 13 (9-16) mg/dL Creatinine 0.77 (0.5-1.4) mg/dL Estim Creat Clear Calc 77.9 Estimated GFR > 60 Random Glucose 99 (60-115) mg/dL Calcium 10.1 D (8.4-10.2) mg/dL Magnesium 2.2 (1.6-2.6) mg/dL Total Bilirubin 0.8 (0.0-1.0) mg/dL Direct Bilirubin 0.2 (0.0-0.5) mg/dL AST 27 (5-31) U/L ALT 39 H (0-31) U/L Alkaline Phosphatase 88 (39-117) U/L Total Protein 7.6 (6.5-8.0) g/dL Albumin 4.5 (3.5-5.0) g/dL Urine Color Urine Appearance Urine pH (5.0-8.0) Ur Specific [place] (1.005-1.025) Urine Protein (NEG-TRACE) MG/DL Urine Glucose (UA) (NEG) MG/DL Urine Ketones (NEG) MG/DL Urine Blood (NEG) Urine Nitrite (NEG) Ur Leukocyte Esterase (NEG) Urine RBC (0) /HPF Urine WBC (0-4) /HPF Ur Squamous Epith Cells /LPF Urine Bacteria /LPF Hyaline Casts /LPF Urine Mucus /LPF COVID-19 (NATHEN) Negative (Negative) COVID-19 Clin Com See Note 07/25/21 Range/Units 19:53 WBC (4.8-10.8) X10*3/uL RBC (4.20-5.50) X10*6/uL Hgb (12.0-16.0) g/dl Hct (37-47) % MCV (80-98) fL MCH (27.0-33.0) pg MCHC (31.0-35.0) g/dl RDW (11.0-16.0) % Plt Count (160-400) X10*3/uL MPV (9.4-12.3) fL Immature Gran % (Auto) (0.0-0.4) % Neut % (Auto) (45-73) % Lymph % (Auto) (20-40) % Centre % (Auto) (2-11) % Eos % (Auto) (0-4) % Baso % (Auto) (0-2) % Lymph # (Auto) (1.2-4.9) X10*3/uL Centre # (Auto) (0.1-1.2) X10*3/uL Eos # (Auto) (0.0-0.4) X10*3/uL Baso # (Auto) (0.0-0.2) X10*3/uL Abs Immat Gran (auto) (0.00-0.03) X10*3/uL Absolute Neuts (auto) (2.0-8.3) X10*3/uL Absolute Nucleated RBC (0.0-0.012) X10*3/uL Nucleated RBC % (auto) (0.0-0.2) /100WBC Sodium (135-145) mmol/L Potassium (3.3-5.1) mmol/L Chloride (96-108) mmol/L Carbon Dioxide (22-29) mmol/L Anion Gap (12-20) BUN (9-16) mg/dL Creatinine (0.5-1.4) mg/dL Estim Creat Clear Calc Estimated GFR Random Glucose (60-115) mg/dL Calcium (8.4-10.2) mg/dL Magnesium (1.6-2.6) mg/dL Total Bilirubin (0.0-1.0) mg/dL Direct Bilirubin (0.0-0.5) mg/dL AST (5-31) U/L ALT (0-31) U/L Alkaline Phosphatase (39-117) U/L Total Protein (6.5-8.0) g/dL Albumin (3.5-5.0) g/dL Urine Color YELLOW Urine Appearance HAZY Urine pH 6.0 (5.0-8.0) Ur Specific [place] 1.025 (1.005-1.025) Urine Protein 2+ H (NEG-TRACE) MG/DL Urine Glucose (UA) NEG (NEG) MG/DL Urine Ketones NEG (NEG) MG/DL Urine Blood 2+ H (NEG) Urine Nitrite NEG (NEG) Ur Leukocyte Esterase TRACE H (NEG) Urine RBC 10-14 H (0) /HPF Urine WBC 1-4 (0-4) /HPF Ur Squamous Epith Cells 2+ /LPF Urine Bacteria TRACE /LPF Hyaline Casts 0-2 /LPF Urine Mucus 2+ /LPF COVID-19 (NATHEN) (Negative) COVID-19 Clin Com ECG Data Attestation: I personally reviewed and interpreted this ECG as follows: Interpretation: Normal sinus rhythm with a rate of 81, normal MS, normal QRS, QTC 460 Discharge Plan Discharge Clinical Impression: Headache, Anxiety, Microscopic hematuria Patient Disposition: Home, Self-Care Instructions: Acute Headache (ED), Hematuria (ED), Anxiety (ED) Additional Instructions: Your lab work and imaging all look normal Your urine shows some microscopic hematuria but does not show any signs of infection. We will send a urine culture and call you if you require antibiotics Follow-up with primary care doctor on Tuesday Prescriptions: New lorazepam [Ativan] 0.5 mg tablet 0.5 mg PO BID PRN (Reason: anxiety) Qty: 8 RF: 0 No Action levothyroxine [Levoxyl] 75 mcg tablet 75 mcg PO DAILY Qty: 30 RF: 11 acetaminophen [Tylenol Extra Strength] 500 mg tablet 500 mg PO Q6H PRNRF: 0 cholecalciferol (vitamin D3) 50 mcg (2,000 unit) capsule 50 mcg PO DAILY 90 Days Qty: 90 RF: 3 Mirena 20 mcg/24 hours (6 yrs) 52 mg intrauterine device intrauterine RF: 0 nitrofurantoin monohyd/m-cryst [Macrobid] 100 mg capsule 100 mg PO BID 5 Days Qty: 10 RF: 0 sennosides [Natural Senna Laxative] 8.6 mg tablet 8.6 mg PO BEDTIME PRN (Reason: constipation) Qty: 30 RF: 1 psyllium husk [Metamucil] 0.52 gram capsule 0.52 g PO DAILY Qty: 30 RF: 4 Linzess 145 mcg capsule 145 mcg PO DAILY Qty: 30 RF: 2 hydrocortisone [Proctosol HC] 2.5 % cream with perineal applicator 1 appl MS BID-QID PRN (Reason: hemorrhoids) Qty: 30 RF: 2 hydrocortisone [Proctosol HC] 2.5 % cream with perineal applicator 1 appl MS BID-QID PRN (Reason: hemorrhoids) Qty: 30 RF: 2 Referrals: Name,MD Cedric [Primary Care Provider] - 2 days Interventions: ED Discharge Assessment Last Done: 07/25/21 20:39 Discharge Date/Time: 07/25/21 20:40 Print Language: Lao
[2021-07-25 17:58] VITALS: BP 144/93; PULSE 89; RESP 18; TEMP 37.1; O2SAT 96; BMI 26.4
[2021-07-25 18:52] LABS: MANUAL DIFF FLAG NO
[2021-07-25 18:55] LABS: Basophils Absolute Auto 0.1 X10*3/uL (0.0-0.2); Eosinophils Absolute Auto 0.2 X10*3/uL (0.0-0.4); Eosinophils Percent Auto 2.6 % (0-4); Hematocrit 38.6 % (37-47); Imm Gran Abs Auto 0.04 X10*3/uL (0.00-0.03); Imm Gran Pct Auto 0.5 % (0.0-0.4); Lymphocytes Absolute Auto 2.8 X10*3/uL (1.2-4.9); Lymphocytes Percent Auto 31.5 % (20-40); Mean Corpuscular HGB Conc 33.7 g/dl (31.0-35.0); Mean Platelet Volume 13.2 fL (9.4-12.3); Monocytes Absolute Auto 0.5 X10*3/uL (0.1-1.2); Monocytes Percent Auto 6.1 % (2-11); Neutrophils Absolute Auto 5.1 X10*3/uL (2.0-8.3); Neutrophils Percent Auto 58.3 % (45-73); Platelet Count 168 X10*3/uL (160-400); Red Blood Count 4.49 X10*6/uL (4.20-5.50); Red Cell Distribution Width 12.6 % (11.0-16.0); White Blood Count 8.8 X10*3/uL (4.8-10.8)
[2021-07-25 19:08] LABS: COVID-19 Test Negative (Negative)
[2021-07-25 19:14] LABS: Alanine Aminotransferase 39 U/L (0-31); Albumin Level 4.5 g/dL (3.5-5.0); Alkaline Phosphatase 88 U/L (39-117); Anion Gap 14 (12-20); Aspartate Amino Transferase 27 U/L (5-31); Bilirubin Direct 0.2 mg/dL (0.0-0.5); Bilirubin Total 0.8 mg/dL (0.0-1.0); Blood Urea Nitrogen 13 mg/dL (9-16); Calcium 10.1 mg/dL (8.4-10.2); Carbon Dioxide 24 mmol/L (22-29); Chloride 104 mmol/L (96-108); Creatinine Clr Calc Pharmacy 77.9; Estimated Glomerular Filt Rate > 60; Glucose Random 99 mg/dL (60-115); Magnesium 2.2 mg/dL (1.6-2.6); Potassium 4.3 mmol/L (3.3-5.1); Sodium 138 mmol/L (135-145); Total Protein 7.6 g/dL (6.5-8.0)
[2021-07-25] MEDS: LORazepam 0.5 MG TABLET PO (19:16)
[2021-07-25] MEDS: Butalb/Acetamin/Caff 50/325/40 TABLET 1 TAB PO (19:16)
[2021-07-25 19:57] LABS: Appearance Urine HAZY; Color Urine YELLOW; Glucose Urine UA NEG (NEG); Leukocyte Esterase Urine TRACE (NEG); Nitrite Urine NEG (NEG); Specific Gravity - Urine 1.025 (1.005-1.025); UACC Culture Trigger YES; Urine Blood 2+ (NEG); Urine Ketones NEG (NEG); Urine Protein 2+ MG/DL (NEG-TRACE)
[2021-07-25 20:07] LABS: Bacteria Urine TRACE /LPF; Hyaline Casts Urine 0-2 /LPF; Mucus Urine 2+ /LPF; Squamous Epithelial Cell Urine 2+ /LPF
== END 2021-07-25 20:40 | disposition home or self-care (01) ==
PROVIDERS: Nurse Practitioner Family; Emergency Provider Emergency Medicine Emergency Medical Services; PCP Internal Medicine Geriatric Medicine
DX: R51.9 Headache, unspecified (principal); F41.9 Anxiety disorder, unspecified; R31.29 Other microscopic hematuria; Z20.822 Contact with and (suspected) exposure to COVID-19; R53.1 Weakness; Z72.89 Other problems related to lifestyle; Z63.79 Other stressful life events affecting family and household
CPT/HCPCS: 36415; 80048; 80076; 81001; 83735; 85025; 87086; 87635; 93005; 99283; 99284

== ENCOUNTER 2021-09-24 07:49 | Outpatient (REF) | payer MEDICAID, SELFPAY ==
[2021-09-24 10:19] LABS: Free T4 (Free Thyroxine) 0.86 ng/dL (0.71-1.85); Thyroid Stimulating Hormone 2.28 uIU/mL (0.32-4.0)
[2021-09-26 01:37] LABS: CA-125 32 U/mL (<35)
== END 2021-09-24 07:50 | disposition home or self-care (01) ==
LOC: HO.LAB 07:49
PROVIDERS: Absent Provider Nurse Practitioner Gerontology; PCP Internal Medicine Geriatric Medicine; Visit Provider Obstetrics & Gynecology
DX: E03.8 Other specified hypothyroidism (principal); E06.3 Autoimmune thyroiditis; E55.9 Vitamin D deficiency, unspecified; N83.292 Other ovarian cyst, left side; N85.00 Endometrial hyperplasia, unspecified
CPT/HCPCS: 36415; 84439; 84443; 86304; 99212

== ENCOUNTER → 2021-09-30 13:18 | Outpatient (BNVA) | payer MEDICAID, SELFPAY | PROVIDERS: PCP Internal Medicine Geriatric Medicine; Referring Provider Internal Medicine Geriatric Medicine; Visit Provider Nurse Practitioner Family | DX: K59.04 Chronic idiopathic constipation (principal); K21.9 Gastro-esophageal reflux disease without esophagitis; K64.9 Unspecified hemorrhoids; E55.9 Vitamin D deficiency, unspecified; E03.9 Hypothyroidism, unspecified; Z11.0 Encounter for screening for intestinal infectious diseases; Z79.899 Other long term (current) drug therapy | CPT/HCPCS: 99212 ==

== ENCOUNTER → 2021-10-29 15:30 | Outpatient (BNVA) | payer MEDICAID, SELFPAY | PROVIDERS: PCP Internal Medicine Geriatric Medicine; Referring Provider Internal Medicine Geriatric Medicine; Visit Provider Surgery | DX: K64.8 Other hemorrhoids (principal) | CPT/HCPCS: 46600; 99202 ==

== ENCOUNTER → 2022-01-27 10:29 | Outpatient (BNVA) | payer MEDICAID, SELFPAY | PROVIDERS: PCP Internal Medicine Geriatric Medicine; Visit Provider Obstetrics & Gynecology | DX: Z13.89 Encounter for screening for other disorder (principal) ==

== ENCOUNTER 2022-02-07 09:53 | Inpatient (IN) | payer MEDICAID, SELFPAY ==
[2022-02-07] VITALS (7 sets, daily range): BP systolic 119–148; BP diastolic 72–89; PULSE 85–94; RESP 16–20; TEMP 36.7–37; O2SAT 95–98; BMI 27.1
--- NOTE | ~2022-02-07 | CT_ITS ---
EXAMINATION: CT ABDOMEN AND PELVIS WITHOUT CONTRAST CLINICAL INFORMATION: Flank pain, dysuria and history of kidney stones COMPARISON: 01/17/2021 CT abdomen pelvis TECHNIQUE: Multidetector volumetric imaging was performed from the superior aspect of the liver through the pubic symphysis. Sagittal and coronal reformatted images were obtained on the technologist's workstation. This CT examination was performed using dose optimization techniques as appropriate, variously including the following: *Automated exposure control *Adjustment of mA and/or kV according to patient size (this includes techniques or standardized protocols for targeted exams where dose is matched to indication/reason for exam; i.e. extremities or head) *Use of iterative reconstruction technique DLP: 476 mGy-cm FINDINGS: LUNG BASES: Bibasilar atelectasis. Left upper lobe pulmonary micronodule, not previously imaged, 4:20. ABDOMINAL AND PELVIC WALL: Unremarkable. LIVER AND BILIARY TREE: Hypoattenuating hepatic parenchyma compatible with hepatic steatosis with focal fatty sparing along the gallbladder fossa. GALLBLADDER: Unremarkable. PANCREAS: Unremarkable. SPLEEN: Unremarkable. ADRENAL GLANDS: Unremarkable. KIDNEYS AND URETERS: Mild right hydronephrosis with relative decompression at the ureteropelvic junction which may reflect a degree of UPJ stenosis. No obstructive ureterolithiasis. GASTROINTESTINAL TRACT: Extensive colonic diverticulosis with sigmoid wall thickening and surrounding inflammatory fat stranding compatible with sigmoid diverticulitis. There is small amount of ill-defined fluid adjacent to the sigmoid colon along the left pelvic sidewall, 3:80 measuring approximately 1.3 cm, for which a small organizing collection cannot be excluded. No extraluminal air to suggest perforation. Normal appendix. VASCULAR: Unremarkable. LYMPH NODES/PERITONEUM: No lymphadenopathy. FREE FLUID: None. BLADDER: Unremarkable. PELVIC VISCERA: Unremarkable. OSSEOUS STRUCTURES: Unremarkable. CT/CT abdomen pelvis wo con IMPRESSION: Extensive colonic diverticulosis with sigmoid wall thickening and surrounding inflammatory fat stranding compatible with sigmoid diverticulitis, however given focal wall thickening recommend correlation with current/recent screening colonoscopy when clinically appropriate to ensure no underlying neoplasm. There is small amount of ill-defined fluid adjacent to the sigmoid colon along the left pelvic sidewall measuring approximately 1.3 cm, for which a small organizing collection cannot be excluded. No extraluminal air to suggest perforation. Mild right hydronephrosis with relative decompression at the ureteropelvic junction which may reflect a degree of UPJ stenosis. No obstructive ureterolithiasis. Hepatic steatosis. Left upper lobe pulmonary micronodule not previously imaged. Assuming patient has no history of malignancy, recommend follow-up per Fleischner Society recommendations. According to the UPDATED 2017 Fleischner Society recommendations, the advised followup imaging for solid nodules < 6 mm is: LOW RISK PATIENT: No routine follow up. HIGH RISK PATIENT: Optional CT at 12 months.
--- NOTE | ~2022-02-07 | CT_ITS ---
EXAMINATION: CT ABDOMEN AND PELVIS WITHOUT CONTRAST CLINICAL INFORMATION: Reassess diverticulitis COMPARISON: 02.07.2022 TECHNIQUE: Multidetector volumetric imaging was performed from the superior aspect of the liver through the pubic symphysis. Sagittal and coronal reformatted images were obtained on the technologist's workstation. This CT examination was performed using dose optimization techniques as appropriate, variously including the following: *Automated exposure control *Adjustment of mA and/or kV according to patient size (this includes techniques or standardized protocols for targeted exams where dose is matched to indication/reason for exam; i.e. extremities or head) *Use of iterative reconstruction technique DLP: 399 mGy-cm FINDINGS: LUNG BASES: Stable 3 mm subpleural nodule within the lingula. Dependent subsegmental atelectasis within the right lower lobe. LIVER, GALLBLADDER, AND BILIARY TREE: Liver normal in size, contour and morphology. Diffuse hepatic steatosis. No focal liver lesions. No intra or extrahepatic biliary dilatation. Gallbladder unremarkable. PANCREAS: Unremarkable. SPLEEN: Unremarkable. ADRENAL GLANDS: Unremarkable. KIDNEYS AND URETERS: The kidneys are normal in size, shape, and attenuation. Mild right hydronephrosis and mild prominence of the right renal pelvis with transition to normal caliber right ureter at the level of the ureteropelvic junction. No hydronephrosis on the left. No hydroureter, or calculi seen. No perinephric stranding. BLADDER: Unremarkable. GASTROINTESTINAL TRACT: Scattered colonic diverticula. Again seen is pericolic fat stranding centered around an inflamed diverticulum within the proximal sigmoid colon. The stranding extends towards the round ligament, which shows mild thickening secondarily. No pericolic fluid collection to suggest abscess formation. The inflammatory changes appear mildly improved from the previous exam. Normal appendix. Stomach and small bowel unremarkable. ABDOMINAL WALL: Small fat-containing umbilical hernia. LYMPH NODES: Normal. VASCULAR: Unremarkable. PELVIC VISCERA: Uterus and adnexa unremarkable. OSSEOUS STRUCTURES: No acute or suspicious osseous abnormalities. CT/CT abdomen pelvis wo con IMPRESSION: * Improving inflammatory changes associated with the uncomplicated focal diverticulitis involving the proximal sigmoid colon. * No evidence of abscess formation. * Hepatic steatosis. 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
--- NOTE | 2022-02-07 11:06 | ED.ABDPAIN ---
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 Mode of arrival: ambulatory Limitations: no limitations History of Present Illness MD elicited complaint: abdominal pain Pertinent past history: other (ovarian cyst that was pre-cancerous s/p removal, kidney stones, constipation) Onset (ago): hour(s) (4am today) Pain Consistency: constant Location: suprapubic Severity: moderate Quality: aching Radiation: none Migration to: L flank and R flank Exacerbating factors: movement Relieving factors: nothing Context: history of similar episodes Associated symptoms: nausea and dysuria Related Data Home Medications Medication Instructions Recorded Confirmed acetaminophen 500 mg tablet 500 mg PO Q6H PRN 09/24/20 10/29/21 (Tylenol Extra Strength) levothyroxine 75 mcg tablet 75 mcg PO MOTUWETHFRSA@0600 02/07/22 (Levoxyl) lisinopril 5 mg tablet 1 tab PO DAILY 02/07/22 Previous Rx's Medication Instructions Recorded nitrofurantoin 100 mg PO BID 5 Days #10 cap 01/01/21 monohydrate/macrocrystals 100 mg capsule (Macrobid) hydrocortisone 2.5 % topical cream 1 appl AL BID-QID PRN #30 g 07/24/21 with perineal applicator (Proctosol HC) lorazepam 0.5 mg tablet (Ativan) 0.5 mg PO BID PRN #8 tab 07/25/21 cholecalciferol (vitamin D3) 50 50 mcg PO DAILY 90 Days #90 cap 09/24/21 mcg (2,000 unit) capsule linaclotide 145 mcg capsule 145 mcg PO DAILY #90 cap 09/30/21 (Linzess) methylcellulose (laxative) 500 mg 500 mg PO DAILY #30 tab 09/30/21 tablet (Citrucel) sennosides 8.6 mg tablet (Natural 8.6 mg PO BEDTIME PRN #30 tab 01/27/22 Senna Laxative) Allergies Allergy/AdvReac Type Severity Reaction Status Date / Time No Known Allergies Allergy Verified 01/27/22 10:49 [No Known Allergies*] Review of Systems Review of Systems Constitutional : No Weight loss, No Fever, No Chills ENT/Mouth : No sore throat, No Rhinorrhea Eyes: No Swelling, No Redness Cardiovascular : No Chest Pain, No SOB, NoEdema Respiratory : No Cough, No Sputum, No Wheezing Gastrointestinal : Positive Nausea, no Vomiting, no Diarrhea, positive abdominal Pain, No Hematochezia, No Melena Genitourinary : No Dysuria, No Urinary Frequency, No Hematuria, No Urgency Musculoskeletal : No joint pain, No Myalgias, No Joint Swelling Skin : No Skin Lesions, No rash Neuro : No Weakness, No Numbness, No Dizziness, No Headache Psych : No Anxiety/Panic, No Depression Heme/Lymph: No Bruising, No Lymphadenopathy Endocrine : No Polyuria, No Polydipsia All other systems reviewed and are negative. [facility] Past Medical History Attestation statement: The following information was validated with the patient. Medical History Endometrial hyperplasia GERD (gastroesophageal reflux disease) Heartburn Hemorrhoids with complication Hypothyroidism Kidney stone Skin lesion of back Vitamin D deficiency Surgical History History of surgery Hx of colonoscopy Hx of esophagogastroduodenoscopy Hx of unilateral oophorectomy Tubal ligation status Family History Family History Father Hypertension Respiratory failure Mother Pancreatic cancer Social History Social History Alcohol intake: never Patient Tobacco Use Status: Never used Tobacco Use of substances other than those prescribed or required for medical reasons: No Advance Directives: No Physical Exam ED Vital Signs: Vital Signs - 24 hr 02/07/22 10:03 02/07/22 12:00 Temperature 98.1 F Pulse Rate 94 91 Respiratory Rate 16 16 Blood Pressure 126/84 148/88 H Pulse Oximetry 98 98 BMI result Body Mass Index 27.1 Appearance: Alert. Oriented X3. No acute distress. Eyes: Pupils equal, round and reactive to light. ENT: Pharynx normal. Neck: Normal inspection. Neck supple. CVS: Normal heart rate and rhythm. Pulses normal. Respiratory: No respiratory distress. Breath sounds normal. Abdomen: Soft and ttp in suprabupic area no rebound or guarding Skin: Skin warm and dry. Normal skin color. Normal skin turgor. Extremities: No lower extremity edema. No calf ttp Neuro: Oriented X 3. No motor deficit. No sensory deficit. Course Course Course Narrative: + diverticulitis at this time infections suspected 1227pm lactic acid, cultures, IV zosyn ordered, IV morphine for pain repeat pain meds given scan pain and small amount of fluids will admit for IV abx and IV pain medications MDM - Abdominal Pain MDM Narrative Medical decision making narrative: 51 yo female with hx of constipation, kidney stones, prior complex ovarian cyst s/p removal, UTI, at this time c/o suprapubic pain radiating to her flanks will need labs, UA, CT scan for renal colic, IV toradol and ativan for pain/spasms. Dispo per results and findings. Lab Data Result diagrams: 02/07/22 11:55 02/07/22 11:55 Labs: Lab Results 02/07/22 02/07/22 02/07/22 Range/Units 11:55 11:55 11:59 WBC 7.9 (4.8-10.8) X10*3/uL RBC 4.57 (4.20-5.50) X10*6/uL Hgb 12.7 (12.0-16.0) g/dl Hct 39.9 (37.0-47.0) % MCV 87.3 (80.0-98.0) fL MCH 27.8 (27.0-33.0) pg MCHC 31.8 (31.0-35.0) g/dl RDW 13.2 (11.0-16.0) % Plt Count 156 L (160-400) X10*3/uL MPV 13.2 H (9.4-12.3) fL Immature Gran % (Auto) Cancelled Neut % (Auto) Cancelled Lymph % (Auto) Cancelled [place] % (Auto) Cancelled Eos % (Auto) Cancelled Baso % (Auto) Cancelled Lymph # (Auto) Cancelled [place] # (Auto) Cancelled Eos # (Auto) Cancelled Baso # (Auto) Cancelled Abs Immat Gran (auto) Cancelled Absolute Neuts (auto) Cancelled Absolute Nucleated RBC 0.000 (0.0-0.012) X10*3/uL Nucleated RBC % (auto) 0.0 (0.0-0.2) /100WBC Neutrophils % (Manual) 70 (45-73) % Band Neutrophils % 2 L (3-5) % Lymphocytes % (Manual) 21 (20-40) % Monocytes % (Manual) 5 (2-11) % Eosinophils % (Manual) 1 (0-4) % Basophils % (Manual) 1 (0-2) % Abs Neuts (Manual) 5.7 (2.0-8.3) X10*3/uL Lymphocytes # (Manual) 1.7 (1.2-4.9) X10*3/uL Monocytes # (Manual) 0.4 (0.1-1.2) X10*3/uL Eosinophils # (Manual) 0.1 (0.0-0.4) X10*3/uL Basophils # (Manual) 0.1 (0.0-0.2) X10*3/uL Platelet Estimate NORMAL (NORMAL) Plt Morphology Comment NORMAL RBC Morphology NORMAL Sodium 138 (135-145) mmol/L Potassium 4.5 (3.3-5.1) mmol/L Chloride 103 (96-108) mmol/L Carbon Dioxide 26 (22-29) mmol/L Anion Gap 14 (12-20) BUN 10 (9-16) mg/dL Creatinine 0.82 (0.5-1.4) mg/dL Estim Creat Clear Calc 65.7 Estimated GFR > 60 Random Glucose 99 (60-115) mg/dL Lactic Acid (0.5-2.0) mmol/L Calcium 9.7 (8.4-10.2) mg/dL Magnesium 2.1 (1.6-2.6) mg/dL Total Bilirubin 0.7 (0.0-1.0) mg/dL Direct Bilirubin 0.3 (0.0-0.5) mg/dL AST 30 (5-31) U/L ALT 46 H (0-31) U/L Alkaline Phosphatase 107 D (39-117) U/L Total Protein 7.7 (6.5-8.0) g/dL Albumin 4.5 (3.5-5.0) g/dL Lipase 27 (8-78) U/L Urine Color STRAW Urine Appearance CLEAR Urine pH 5.5 (5.0-8.0) Ur Specific [place] 1.015 (1.005-1.025) Urine Protein TRACE (NEG-TRACE) MG/DL Urine Glucose (UA) NEG (NEG) MG/DL Urine Ketones NEG (NEG) MG/DL Urine Blood TRACE (NEG) Urine Nitrite NEG (NEG) Ur Leukocyte Esterase NEG (NEG) Urine RBC 0-2 (0) /HPF Urine WBC 0 (0-4) /HPF Ur Squamous Epith Cells TRACE /LPF Urine Bacteria NONE /LPF 02/07/22 Range/Units 12:37 WBC (4.8-10.8) X10*3/uL RBC (4.20-5.50) X10*6/uL Hgb (12.0-16.0) g/dl Hct (37.0-47.0) % MCV (80.0-98.0) fL MCH (27.0-33.0) pg MCHC (31.0-35.0) g/dl RDW (11.0-16.0) % Plt Count (160-400) X10*3/uL MPV (9.4-12.3) fL Immature Gran % (Auto) Neut % (Auto) Lymph % (Auto) [place] % (Auto) Eos % (Auto) Baso % (Auto) Lymph # (Auto) [place] # (Auto) Eos # (Auto) Baso # (Auto) Abs Immat Gran (auto) Absolute Neuts (auto) Absolute Nucleated RBC (0.0-0.012) X10*3/uL Nucleated RBC % (auto) (0.0-0.2) /100WBC Neutrophils % (Manual) (45-73) % Band Neutrophils % (3-5) % Lymphocytes % (Manual) (20-40) % Monocytes % (Manual) (2-11) % Eosinophils % (Manual) (0-4) % Basophils % (Manual) (0-2) % Abs Neuts (Manual) (2.0-8.3) X10*3/uL Lymphocytes # (Manual) (1.2-4.9) X10*3/uL Monocytes # (Manual) (0.1-1.2) X10*3/uL Eosinophils # (Manual) (0.0-0.4) X10*3/uL Basophils # (Manual) (0.0-0.2) X10*3/uL Platelet Estimate (NORMAL) Plt Morphology Comment RBC Morphology Sodium (135-145) mmol/L Potassium (3.3-5.1) mmol/L Chloride (96-108) mmol/L Carbon Dioxide (22-29) mmol/L Anion Gap (12-20) BUN (9-16) mg/dL Creatinine (0.5-1.4) mg/dL Estim Creat Clear Calc Estimated GFR Random Glucose (60-115) mg/dL Lactic Acid 1.3 (0.5-2.0) mmol/L Calcium (8.4-10.2) mg/dL Magnesium (1.6-2.6) mg/dL Total Bilirubin (0.0-1.0) mg/dL Direct Bilirubin (0.0-0.5) mg/dL AST (5-31) U/L ALT (0-31) U/L Alkaline Phosphatase (39-117) U/L Total Protein (6.5-8.0) g/dL Albumin (3.5-5.0) g/dL Lipase (8-78) U/L Urine Color Urine Appearance Urine pH (5.0-8.0) Ur Specific [place] (1.005-1.025) Urine Protein (NEG-TRACE) MG/DL Urine Glucose (UA) (NEG) MG/DL Urine Ketones (NEG) MG/DL Urine Blood (NEG) Urine Nitrite (NEG) Ur Leukocyte Esterase (NEG) Urine RBC (0) /HPF Urine WBC (0-4) /HPF Ur Squamous Epith Cells /LPF Urine Bacteria /LPF Discharge Plan Discharge Clinical Impression: Abdominal pain, Diverticulitis Patient Disposition: Admitted As Inpatient Prescriptions: No Action sennosides [Natural Senna Laxative] 8.6 mg tablet 8.6 mg PO BEDTIME PRN (Reason: constipation) Qty: 30 1RF Rx Instructions: silas елена tableta cada noche lorazepam [Ativan] 0.5 mg tablet 0.5 mg PO BID PRN (Reason: anxiety) Qty: 8 0RF lisinopril 5 mg tablet 1 tab PO DAILY 0RF levothyroxine [Levoxyl] 75 mcg tablet 75 mcg PO MOTUWETHFRSA@0600 0RF Rx Instructions: 75 mcg PO daily Tuesday- Tuesday; acetaminophen [Tylenol Extra Strength] 500 mg tablet 500 mg PO Q6H PRN0RF nitrofurantoin monohyd/m-cryst [Macrobid] 100 mg capsule 100 mg PO BID 5 Days Qty: 10 0RF Rx Instructions: must administer with a meal/food cholecalciferol (vitamin D3) 50 mcg (2,000 unit) capsule 50 mcg PO DAILY 90 Days Qty: 90 3RF hydrocortisone [Proctosol HC] 2.5 % cream with perineal applicator 1 appl AL BID-QID PRN (Reason: hemorrhoids) Qty: 30 2RF Linzess 145 mcg capsule 145 mcg PO DAILY Qty: 90 2RF Citrucel 500 mg tablet 500 mg PO DAILY Qty: 30 2RF Rx Instructions: take it with full glass of water
--- NOTE | 2022-02-07 11:33 | PC.NURSE ---
pt to CT, unable to obtain labs
[2022-02-07] MEDS: 0.9 % Sodium Chloride 1,000 ML 999 ML IVCONT (12:00)
[2022-02-07] MEDS: LORazepam 2 MG/ML VIAL 1 MG IVPUSH (12:01)
[2022-02-07] MEDS: Ketorolac Tromethamine 15 MG/ML VIAL 30 MG IVPUSH (12:01)
[2022-02-07] MEDS: ondansetron HCL 4 MG/2 ML VIAL IVPUSH ×2 (12:02→20:25)
[2022-02-07 12:08] LABS: Appearance Urine CLEAR; Color Urine STRAW; Glucose Urine UA NEG (NEG); Leukocyte Esterase Urine NEG (NEG); Nitrite Urine NEG (NEG); PH 5.5 (5.0-8.0); Specific Gravity - Urine 1.015 (1.005-1.025); UACC Culture Trigger NO; Urine Blood TRACE (NEG); Urine Ketones NEG (NEG); Urine Protein TRACE MG/DL (NEG-TRACE)
[2022-02-07 12:08] LABS: Hematocrit 39.9 % (37.0-47.0); Hemoglobin 12.7 g/dl (12.0-16.0); Mean Corpuscular HGB Conc 31.8 g/dl (31.0-35.0); Mean Corpuscular Hemoglobin 27.8 pg (27.0-33.0); Mean Corpuscular Volume 87.3 fL (80.0-98.0); Mean Platelet Volume 13.2 fL (9.4-12.3); Platelet Count 156 X10*3/uL (160-400); Red Blood Count 4.57 X10*6/uL (4.20-5.50); Red Cell Distribution Width 13.2 % (11.0-16.0)
--- NOTE | 2022-02-07 12:09 | PC.NURSE ---
pt a&ox3, vss, c/o 08/23 abd pain, 20G IV placed right AC, labs drawn, urine sample obtained and sent to lab, flds started, medicated per provider order. at bedside. no new orders at this time.
[2022-02-07 12:12] LABS: PLT ABN DIST 1; WBC ABN SCTR FOR CBC 1
[2022-02-07 12:18] LABS: RBC Urine 0-2 /HPF (0); Squamous Epithelial Cell Urine TRACE /LPF; WBC Urine 0 /HPF (0-4)
[2022-02-07 12:18] LABS: Alanine Aminotransferase 46 U/L (0-31); Albumin Level 4.5 g/dL (3.5-5.0); Alkaline Phosphatase 107 U/L (39-117); Anion Gap 14 (12-20); Aspartate Amino Transferase 30 U/L (5-31); Bilirubin Direct 0.3 mg/dL (0.0-0.5); Bilirubin Total 0.7 mg/dL (0.0-1.0); Blood Urea Nitrogen 10 mg/dL (9-16); Calcium 9.7 mg/dL (8.4-10.2); Carbon Dioxide 26 mmol/L (22-29); Chloride 103 mmol/L (96-108); Creatinine Clr Calc Pharmacy 65.7; Estimated Glomerular Filt Rate > 60; Glucose Random 99 mg/dL (60-115); Lipase 27 U/L (8-78); Magnesium 2.1 mg/dL (1.6-2.6); Potassium 4.5 mmol/L (3.3-5.1); Sodium 138 mmol/L (135-145); Total Protein 7.7 g/dL (6.5-8.0)
[2022-02-07 12:24] LABS: Band Neutrophils Percent 2 % (3-5); Basophils Percent Manual 1 % (0-2); Eosinophils Percent Manual 1 % (0-4); Lymphocytes Percent Manual 21 % (20-40); Monocytes Percent Manual 5 % (2-11); Neutrophils Percent Manual 70 % (45-73); Platelet Estimate NORMAL (NORMAL); Platelet Morphology Comment NORMAL; RBC Morphology NORMAL
[2022-02-07 12:26] LABS: Basophils Abs Manual 0.1 X10*3/uL (0.0-0.2); Eosinophils Absolute Manual 0.1 X10*3/uL (0.0-0.4); Lymphocytes Absolute Manual 1.7 X10*3/uL (1.2-4.9); Monocytes Absolute Manual 0.4 X10*3/uL (0.1-1.2); Neutrophils Absolute Manual 5.7 X10*3/uL (2.0-8.3); White Blood Count 7.9 X10*3/uL (4.8-10.8)
[2022-02-07 12:56] LABS: Lactic Acid 1.3 mmol/L (0.5-2.0)
--- NOTE | 2022-02-07 13:36 | PHA.MEDREC ---
Pharmacy Consult ? Medication Reconciliation Pharmacy has completed the medication reconciliation.
[2022-02-07 13:47] LABS: COVID-19 Test Negative (Negative)
[2022-02-07] MEDS: Morphine Sulfate 4 MG/ML CARTRIDGE IVPUSH (13:53)
[2022-02-07] MEDS: 0.9 % Sodium Chloride 1,000 ML 999 ML IV (13:54)
[2022-02-07] MEDS: Piperacillin Sodium/Tazobactam 3.375 GM in 0.9 % Sodium Chloride 50 ML IV ×2 (13:55→19:37)
--- NOTE | 2022-02-07 14:04 | PC.NURSE ---
patient a&ox3, c/o abd pain, pt medicate for pain, iv antibiotics given per order, second liter hung per order, family at bedside, will continue to monitor.
--- NOTE | 2022-02-07 15:09 | P.HPHOSP_ITS ---
History of Present Illness Date of Service: 02/07/22 Attending physician on admission: Chelsea Saldana Chief Complaint: Acute diverticulitis. 51-year-old female with pmhx hypothyroidism, hypertension-came to the hospital because of left lower quadrant pain-she said it started yesterday, sharp, intermittent, also feels spasm in between. She said she had an episode of lose bowels yesterday also. She denies any nausea or vomiting or fever or chills or cough or phlegm or weakness or numbness or any urinary complaints. Denies headaches or dizziness Lab imaging reviewed: WBC count: 7.9 Hematocrit 12.7/39.9, platelets 156. CMP seems fine except ALT 46, lipase normal Lactic acid 1.3 ?CT/CT abdomen pelvis wo con IMPRESSION: ? Extensive colonic diverticulosis with sigmoid wall thickening and surrounding inflammatory fat stranding compatible with sigmoid diverticulitis,There is small amount of ill-defined fluid adjacent to the sigmoid colon along the left pelvic sidewall measuring approximately 1.3 cm, for which a small organizing collection cannot be excluded. Review of Systems Review of Systems: As above. Yes all other systems are reviewed and are negative [facility] Medical History Endometrial hyperplasia GERD (gastroesophageal reflux disease) Heartburn Hemorrhoids with complication Hypothyroidism Kidney stone Skin lesion of back Vitamin D deficiency Family History Father Hypertension Respiratory failure Mother Pancreatic cancer Surgical History History of surgery Hx of colonoscopy Hx of esophagogastroduodenoscopy Hx of unilateral oophorectomy Tubal ligation status Social History Alcohol intake: never Patient Tobacco Use Status: Never used Tobacco Use of substances other than those prescribed or required for medical reasons: No Advance Directives: No Meds Allergies Allergy/AdvReac Type Severity Reaction Status Date / Time No Known Allergies Allergy Verified 01/27/22 10:49 [No Known Allergies*] Active Medications: Current Medications Enoxaparin Sodium (Enoxaparin Sodium 40 Mg/0.4 Ml Syringe) 40 mg SUBCUT Q24H NORMA Sodium Chloride (Ns) 1,000 mls @ 100 mls/hr IVCONT .Q10H NORMA Piperacillin Sod/Tazobactam (Sod 3.375 gm/ Sodium Chloride) 50 mls @ 100 mls/hr IV Q6H NORMA Levothyroxine Sodium (Levothyroxine Sodium 75 Mcg Tablet) 75 mcg PO MOTUWETHFRSA@0600 [facility] Lisinopril (Lisinopril 5 Mg Tablet) 5 mg PO DAILY [facility]; Protocol Morphine Sulfate (Morphine Sulfate 2 Mg/Ml Cartridge) 2 mg IVPUSH Q4H PRN; Protocol PRN Reason: Pain, Moderate (Pain Scale 4-6 Non-Formulary Medication (Linaclotide [Linzess]) 145 mcg PO DAILY [facility] Pharmacy Consult (Consult Rx Perform Med Rec) 1 each MISCELLANE ONCE PRN PRN Reason: Consult order Sodium Chloride (0.9 % Sodium Chloride Flush 3 Ml Syringe) 3 ml IVFLUSH QSHIFT [facility] Home Medications Medication Instructions Recorded Confirmed Last Taken Type levothyroxine 75 mcg tablet 75 mcg PO MOTUWETHFRSA@0600 02/07/22 02/07/22 02/06/22 History (Levoxyl) lisinopril 5 mg tablet 1 tab PO DAILY 02/07/22 02/07/22 02/06/22 History Physical Exam Vital Signs and Narrative: Vital Signs: Last Vital Signs Temp 98.5 F 02/07/22 14:35 Pulse 87 02/07/22 14:35 Resp 16 02/07/22 14:35 BP 123/74 02/07/22 14:35 Pulse Ox 97 02/07/22 14:35 BMI result Body Mass Index 27.1 Appearance: Alert.? Oriented X3.? not in distress.? Eyes: Pupils equal, round and reactive to light.? Sclera nonicteric.? ENT: Pharynx normal.? Moist mucous membranes. cvs: rrr, [id number] , no murmur res: clear to auscultation ,no rhonchii or wheezing abd: no rebound or guarding ,left lower quadrent pain , bs present. ext pulses present , no cyanosis . neuro: axo3 , nonfocal. Results Labs CBC and Chem 7: 02/07/22 11:55 02/07/22 11:55 Labs: Laboratory Results - last 24 hr 02/07/22 02/07/22 02/07/22 11:55 11:55 11:59 MCV 87.3 MCH 27.8 MCHC 31.8 RDW 13.2 Plt Count 156 L MPV 13.2 H Immature Gran % (Auto) Cancelled Neut % (Auto) Cancelled Lymph % (Auto) Cancelled [place] % (Auto) Cancelled Eos % (Auto) Cancelled Baso % (Auto) Cancelled Lymph # (Auto) Cancelled [place] # (Auto) Cancelled Eos # (Auto) Cancelled Baso # (Auto) Cancelled Abs Immat Gran (auto) Cancelled Absolute Neuts (auto) Cancelled Absolute Nucleated RBC 0.000 Nucleated RBC % (auto) 0.0 Neutrophils % (Manual) 70 Band Neutrophils % 2 L Lymphocytes % (Manual) 21 Monocytes % (Manual) 5 Eosinophils % (Manual) 1 Basophils % (Manual) 1 Abs Neuts (Manual) 5.7 Lymphocytes # (Manual) 1.7 Monocytes # (Manual) 0.4 Eosinophils # (Manual) 0.1 Basophils # (Manual) 0.1 Platelet Estimate NORMAL Plt Morphology Comment NORMAL RBC Morphology NORMAL Anion Gap 14 Estim Creat Clear Calc 65.7 Estimated GFR > 60 Random Glucose 99 Lactic Acid Calcium 9.7 Magnesium 2.1 Total Bilirubin 0.7 Direct Bilirubin 0.3 AST 30 ALT 46 H Alkaline Phosphatase 107 D Total Protein 7.7 Albumin 4.5 Lipase 27 Urine Color STRAW Urine Appearance CLEAR Urine pH 5.5 Ur Specific [place] 1.015 Urine Protein TRACE Urine Glucose (UA) NEG Urine Ketones NEG Urine Blood TRACE Urine Nitrite NEG Ur Leukocyte Esterase NEG Urine RBC 0-2 Urine WBC 0 Ur Squamous Epith Cells TRACE Urine Bacteria NONE COVID-19 (NATHEN) COVID-19 Clin Com 02/07/22 02/07/22 12:37 13:24 MCV MCH MCHC RDW Plt Count MPV Immature Gran % (Auto) Neut % (Auto) Lymph % (Auto) [place] % (Auto) Eos % (Auto) Baso % (Auto) Lymph # (Auto) [place] # (Auto) Eos # (Auto) Baso # (Auto) Abs Immat Gran (auto) Absolute Neuts (auto) Absolute Nucleated RBC Nucleated RBC % (auto) Neutrophils % (Manual) Band Neutrophils % Lymphocytes % (Manual) Monocytes % (Manual) Eosinophils % (Manual) Basophils % (Manual) Abs Neuts (Manual) Lymphocytes # (Manual) Monocytes # (Manual) Eosinophils # (Manual) Basophils # (Manual) Platelet Estimate Plt Morphology Comment RBC Morphology Anion Gap Estim Creat Clear Calc Estimated GFR Random Glucose Lactic Acid 1.3 Calcium Magnesium Total Bilirubin Direct Bilirubin AST ALT Alkaline Phosphatase Total Protein Albumin Lipase Urine Color Urine Appearance Urine pH Ur Specific [place] Urine Protein Urine Glucose (UA) Urine Ketones Urine Blood Urine Nitrite Ur Leukocyte Esterase Urine RBC Urine WBC Ur Squamous Epith Cells Urine Bacteria COVID-19 (NATHEN) Negative COVID-19 Clin Com See Note ?CT/CT abdomen pelvis wo con IMPRESSION: ? Extensive colonic diverticulosis with sigmoid wall thickening and surrounding inflammatory fat stranding compatible with sigmoid diverticulitis, however given focal wall thickening recommend correlation with current/recent screening colonoscopy when clinically appropriate to ensure no underlying neoplasm. There is small amount of ill-defined fluid adjacent to the sigmoid colon along the left pelvic sidewall measuring approximately 1.3 cm, for which a small organizing collection cannot be excluded. No extraluminal air to suggest perforation.? ? Mild right hydronephrosis with relative decompression at the ureteropelvic junction which may reflect a degree of UPJ stenosis. No obstructive ureterolithiasis. ? Hepatic steatosis. ? Left upper lobe pulmonary micronodule not previously imaged. Assuming patient has no history of malignancy, recommend follow-up per Fleischner Society recommendations. According to the UPDATED 2017 Fleischner Society recommendations, the advised followup imaging for solid nodules < 6 mm is: ?? LOW RISK PATIENT: No routine follow up. ?? HIGH RISK PATIENT: Optional CT at 12 months. Imaging Radiologist's Impressions: Impressions Abdomen/Pelvis CT 02/07/22 11:45 IMPRESSION: Extensive colonic diverticulosis with sigmoid wall thickening and surrounding inflammatory fat stranding compatible with sigmoid diverticulitis, however given focal wall thickening recommend correlation with current/recent screening colonoscopy when clinically appropriate to ensure no underlying neoplasm. There is small amount of ill-defined fluid adjacent to the sigmoid colon along the left pelvic sidewall measuring approximately 1.3 cm, for which a small organizing collection cannot be excluded. No extraluminal air to suggest perforation. Mild right hydronephrosis with relative decompression at the ureteropelvic junction which may reflect a degree of UPJ stenosis. No obstructive ureterolithiasis. Hepatic steatosis. Left upper lobe pulmonary micronodule not previously imaged. Assuming patient has no history of malignancy, recommend follow-up per Fleischner Society recommendations. According to the UPDATED 2017 Fleischner Society recommendations, the advised followup imaging for solid nodules < 6 mm is: LOW RISK PATIENT: No routine follow up. HIGH RISK PATIENT: Optional CT at 12 months. Assessment and Plan (1) Abdominal pain: Qualifiers: Abdominal location: lower abdomen, unspecified Qualified Code(s): R10.30 - Lower abdominal pain, unspecified Status: Acute (2) Diverticulitis: Status: Acute Plan 51-year-old female with acute diverticulitis. 1. Acute diverticulitis: Still has significant pain WBC normal, lactic acid normal, blood cultures sent. Started on IV antibiotics, clear liquid diet, pain management with IV morphine. GI evaluation 2. Hypothyroidism: Continue levothyroxine. 3. Hypertension: Continue lisinopril. 4.dvt prophylax: s/c lovenox Above management discussed with the patient in detail and she understand and in agreement with the above plan, time spent 70 minute. Quality Stroke Does the patient have a stroke diagnosis?: No VTE Prior VTE?: No VTE Risk Level:: Medical - moderate - high VTE Device Contraindication: N/A - Device Ordered VTE Drug Contraindication: N/A - Med Ordered
[2022-02-07] MEDS: 0.9 % Sodium Chloride 1,000 ML 100 ML IVCONT (15:28)
[2022-02-07] MEDS: Enoxaparin Sodium 40 MG/0.4 ML SYRINGE SUBCUT (15:38)
--- NOTE | 2022-02-07 17:25 | PC.NURSE ---
spoke w pt's , pt on clear liquid diet, cannot have soup that was brought in, dinner ordered.
--- NOTE | 2022-02-07 18:59 | PC.NURSE ---
RN-RN report given to ED overflow
[2022-02-07] MEDS: 0.9 % Sodium Chloride Flush 3 ML SYRINGE IVFLUSH (19:38)
[2022-02-08] MEDS: Piperacillin Sodium/Tazobactam 3.375 GM in 0.9 % Sodium Chloride 50 ML IV ×4 (02:10→21:29)
[2022-02-08] MEDS: 0.9 % Sodium Chloride 1,000 ML 100 ML IVCONT ×2 (02:36→18:22)
[2022-02-08 03:16] VITALS: RESP 14
[2022-02-08 04:46] VITALS: BP 106/69; PULSE 80; RESP 16; O2SAT 96
[2022-02-08] MEDS: Levothyroxine Sodium 75 MCG TABLET PO (06:37)
[2022-02-08 07:10] LABS: Glucose, Whole Blood 86 mg/dL (60-115)
[2022-02-08 07:29] LABS: Hematocrit 33.5 % (37.0-47.0); Hemoglobin 10.6 g/dl (12.0-16.0); Mean Corpuscular HGB Conc 31.6 g/dl (31.0-35.0); Mean Corpuscular Hemoglobin 27.7 pg (27.0-33.0); Mean Corpuscular Volume 87.7 fL (80.0-98.0); Mean Platelet Volume 12.9 fL (9.4-12.3); Platelet Count 150 X10*3/uL (160-400); Red Blood Count 3.82 X10*6/uL (4.20-5.50); Red Cell Distribution Width 13.2 % (11.0-16.0); White Blood Count 6.2 X10*3/uL (4.8-10.8)
[2022-02-08 07:49] LABS: Anion Gap 9 (12-20); Blood Urea Nitrogen 6 mg/dL (9-16); Calcium 8.6 mg/dL (8.4-10.2); Carbon Dioxide 25 mmol/L (22-29); Chloride 108 mmol/L (96-108); Creatinine Clr Calc Pharmacy 70.9; Estimated Glomerular Filt Rate > 60; Glucose Random 96 mg/dL (60-115); Potassium 3.8 mmol/L (3.3-5.1); Sodium 138 mmol/L (135-145)
[2022-02-08 08:35] VITALS: BP 138/81; PULSE 92; RESP 14; TEMP 36.9; O2SAT 95
[2022-02-08] MEDS: lisinopriL 5 MG TABLET PO (08:53)
[2022-02-08] MEDS: 0.9 % Sodium Chloride Flush 3 ML SYRINGE IVFLUSH ×2 (08:54→17:47)
--- NOTE | 2022-02-08 12:06 | P.CNGI_ITS ---
History of Present Illness Data of Consult Service Date: 02/08/22 Requesting physician: Chelsea Saldana Primary Care Provider: Cedric Liao MD HPI Reason for consult: diverticulitis 51-year-old female with pmhx hypothyroidism,chronic constipation and hypertension-who I am seeing for assessment of diverticulitis. She had one day hx of sudden onset sharp intermittent LLQ abodminal pain, 10/10 in severity with loose non bloody stools. Apin is now subsided a lot today though. She denies any nausea or vomiting denies fever or chills appetite is good, she feels hungry and wants to advance her diet. She is passing gas. still has chill.s receiving IV ABX with zosyn Labs: WBC count: 7.9 Hematocrit 12.7/39.9, platelets 156. ALT 46, lipase normal Lactic acid 1.3 ?? CT/CT abdomen pelvis wo con personally reviewed with sigmoid enhancement and wall thickening, inflammatory stranding and fluid noted diverticulosis EGD/colonoscopy 2018---diverticulosis noted, small adenoma removed, recommended repeat 5 yrs Review of Systems Review of Systems: Constitutional : No Weight loss, No Fever, +Chills ENT/Mouth : No sore throat, No Rhinorrhea Eyes: No Swelling, No Redness Cardiovascular : No Chest Pain, No SOB, No Edema Respiratory : No Cough, No Sputum, No Wheezing Gastrointestinal : see HPI Genitourinary : NO Dysuria, No Urinary Frequency, No Hematuria, No Urgency Musculoskeletal : No joint pain, No Myalgias, No Joint Swelling Skin : No Skin Lesions, No rash Neuro : No Weakness, No Numbness, No Dizziness, No Headache Psych : No Anxiety/Panic, No Depression Heme/Lymph: No Bruising, No Lymphadenopathy Endocrine : No Polyuria, No Polydipsia All other systems reviewed and are negative. [facility] Past Medical History Medical History Endometrial hyperplasia GERD (gastroesophageal reflux disease) Heartburn Hemorrhoids with complication Hypothyroidism Kidney stone Skin lesion of back Vitamin D deficiency Family History Family History Father Hypertension Respiratory failure Mother Pancreatic cancer Surgical History Surgical History History of surgery Hx of colonoscopy Hx of esophagogastroduodenoscopy Hx of unilateral oophorectomy Tubal ligation status Social History Social History Alcohol intake: never Patient Tobacco Use Status: Never used Tobacco Use of substances other than those prescribed or required for medical reasons: No Advance Directives: No service: No Current occupational status: unemployed Meds Allergies Allergy/AdvReac Type Severity Reaction Status Date / Time No Known Allergies Allergy Verified 01/27/22 10:49 [No Known Allergies*] Active Medications: Current Medications Enoxaparin Sodium (Enoxaparin Sodium 40 Mg/0.4 Ml Syringe) 40 mg SUBCUT Q24H [facility] Last Admin: 02/07/22 15:38 Dose: 40 mg Documented by: Sodium Chloride (Ns) 1,000 mls @ 100 mls/hr IVCONT .Q10H [facility] Last Admin: 02/08/22 02:36 Dose: 100 mls/hr Documented by: Piperacillin Sod/Tazobactam (Sod 3.375 gm/ Sodium Chloride) 50 mls @ 100 mls/hr IV Q6H [facility] Last Infusion: 02/08/22 10:38 Dose: Infused Documented by: Levothyroxine Sodium (Levothyroxine Sodium 75 Mcg Tablet) 75 mcg PO MOTUWETHFRSA@0600 [facility] Last Admin: 02/08/22 06:37 Dose: 75 mcg Documented by: Lisinopril (Lisinopril 5 Mg Tablet) 5 mg PO DAILY [facility]; Protocol Last Admin: 02/08/22 08:53 Dose: 5 mg Documented by: Morphine Sulfate (Morphine Sulfate 2 Mg/Ml Cartridge) 2 mg IVPUSH Q4H PRN; Protocol PRN Reason: Pain, Moderate (Pain Scale 4-6 Non-Formulary Medication (Linaclotide [Linzess]) 145 mcg PO DAILY [facility] Ondansetron HCl (Ondansetron Hcl 4 Mg/2 Ml Vial) 4 mg IVPUSH Q8H PRN PRN Reason: Nausea and Vomiting Last Admin: 02/07/22 20:25 Dose: 4 mg Documented by: Pharmacy Consult (Consult Rx Perform Med Rec) 1 each MISCELLANE ONCE PRN PRN Reason: Consult order Sodium Chloride (0.9 % Sodium Chloride Flush 3 Ml Syringe) 3 ml IVFLUSH QSHIFT [facility] Last Admin: 02/08/22 08:54 Dose: 3 ml Documented by: Home Medications Medication Instructions Recorded Confirmed Last Taken Type levothyroxine 75 mcg tablet 75 mcg PO ОЛЬГА@0600 02/07/22 02/07/22 02/06/22 History (Levoxyl) lisinopril 5 mg tablet 1 tab PO DAILY 02/07/22 02/07/22 02/06/22 History Physical Exam Vital Signs: Vital Signs: Last Vital Signs Temp 98.4 F 02/08/22 08:35 Pulse 92 02/08/22 08:35 Resp 14 02/08/22 08:35 BP 138/81 02/08/22 08:35 Pulse Ox 95 02/08/22 08:35 BMI result Body Mass Index 27.1 EXAM: GENERAL: The patient is tired appearing VITAL SIGNS:see workflow HEENT: Nonicteric sclerae, PERRLA, EOMI. Oropharynx clear. Moist mucous membranes. Conjunctivae appear well perfused. No thyroid mass. CHEST: Chest wall is nontender. HEART: Regular rate and rhythm without murmurs. LUNGS: Clear to auscultation bilaterally. ABDOMEN: Soft, positive bowel sounds but reduced, tender LLQ with guarding, no organomegaly.no flank tenderness SKIN: No rash, no excessive bruising, petechiae, or purpura. NEUROLOGIC: Cranial nerves II-XII intact without motor/sensory deficit. Psych--nml affect Results Labs CBC & Chem 7: 02/08/22 07:09 02/08/22 07:09 Labs: Short CBC 02/07/22 02/08/22 Range/Units 11:55 07:09 WBC 7.9 6.2 (4.8-10.8) X10*3/uL Hgb 12.7 10.6 L (12.0-16.0) g/dl Hct 39.9 33.5 L (37.0-47.0) % Plt Count 156 L 150 L (160-400) X10*3/uL BMP 02/07/22 02/08/22 11:55 07:09 Sodium 138 138 Potassium 4.5 3.8 Chloride 103 108 Carbon Dioxide 26 25 BUN 10 6 L Creatinine 0.82 0.76 Calcium 9.7 8.6 D Liver Function 02/07/22 Range/Units 11:55 Total Bilirubin 0.7 (0.0-1.0) mg/dL Direct Bilirubin 0.3 (0.0-0.5) mg/dL AST 30 (5-31) U/L ALT 46 H (0-31) U/L Alkaline Phosphatase 107 D (39-117) U/L Albumin 4.5 (3.5-5.0) g/dL Urine 02/07/22 Range/Units 11:59 Urine Color STRAW Urine Appearance CLEAR Urine pH 5.5 (5.0-8.0) Ur Specific [place] 1.015 (1.005-1.025) Urine Protein TRACE (NEG-TRACE) MG/DL Urine Glucose (UA) NEG (NEG) MG/DL Imaging CT scan - abdomen: Attestation: I personally reviewed and interpreted this imaging study as follows: My impression: sigmoid diverticulitis, inflamamtion and stranding Assessment and Plan (1) Diverticulitis: Status: Acute Plan 1/ Acute sigmoid diverticulitis with small fluid collection, improved already with BX, but still has some guarding and tenderness, unlikely to have microperfation, tolerating clears and asking to advance diet PLAN: 1/ Advance diet as tolerated, if worsening diet back to NPO and surgical consult, consider repeat CT 2/ O/P colonoscopy in 6-8 weeks 3/ avoid constipation, stool softener and miralax BID when inflammation resolves Procedures Date of Service Date of Service: 02/08/22
[2022-02-08] MEDS: ondansetron HCL 4 MG/2 ML VIAL IVPUSH (12:35)
[2022-02-08] MEDS: Morphine Sulfate 2 MG/ML CARTRIDGE IVPUSH (12:35)
--- NOTE | 2022-02-08 13:51 | HO.PM.IMPN ---
Subjective Subjective Date of Service: 02/08/22 Interval History: acute diverticulitis Review of Systems Still has significant nausea and abdominal pain Denies any diarrhea or fever or chills or cough or phlegm. Physical Exam Vital Signs: Vital Signs: Last Vital Signs Temp 98.4 F 02/08/22 08:35 Pulse 92 02/08/22 08:35 Resp 14 02/08/22 08:35 BP 138/81 02/08/22 08:35 Pulse Ox 95 02/08/22 08:35 BMI result Body Mass Index 27.1 Appearance: Alert.? Oriented X3.? not in distress.? Eyes: Pupils equal, round and reactive to light.? Sclera nonicteric.? ENT: Pharynx normal.? Moist mucous membranes. cvs: rrr, [id number] , no murmur res: clear to auscultation ,no rhonchii or wheezing abd: no rebound or guarding ,left lower quadrent pain , bs present. ext pulses present , no cyanosis . neuro: axo3 , nonfocal. Objective Data Active Medications Enoxaparin Sodium (Enoxaparin Sodium 40 Mg/0.4 Ml Syringe) 40 mg SUBCUT Q24H [facility] Last Admin: 02/07/22 15:38 Dose: 40 mg Documented by: JUICE Sodium Chloride (Ns) 1,000 mls @ 100 mls/hr IVCONT .Q10H [facility] Last Admin: 02/08/22 02:36 Dose: 100 mls/hr Documented by: MARY Piperacillin Sod/Tazobactam (Sod 3.375 gm/ Sodium Chloride) 50 mls @ 100 mls/hr IV Q6H [facility] Last Infusion: 02/08/22 10:38 Dose: 100 mls/hr Documented by: SCFITO Levothyroxine Sodium (Levothyroxine Sodium 75 Mcg Tablet) 75 mcg PO MOTUWETHFRSA@0600 [facility] Last Admin: 02/08/22 06:37 Dose: 75 mcg Documented by: MCTA Lisinopril (Lisinopril 5 Mg Tablet) 5 mg PO DAILY [facility]; Protocol Last Admin: 02/08/22 08:53 Dose: 5 mg Documented by: SCOC Morphine Sulfate (Morphine Sulfate 2 Mg/Ml Cartridge) 2 mg IVPUSH Q4H PRN; Protocol PRN Reason: Pain, Moderate (Pain Scale 4-6 Last Admin: 02/08/22 12:35 Dose: 2 mg Documented by: ISAIAH Non-Formulary Medication (Linaclotide [Linzess]) 145 mcg PO DAILY [facility] Ondansetron HCl (Ondansetron Hcl 4 Mg/2 Ml Vial) 4 mg IVPUSH Q8H PRN PRN Reason: Nausea and Vomiting Last Admin: 02/08/22 12:35 Dose: 4 mg Documented by: ISAIAH Pharmacy Consult (Consult Rx Perform Med Rec) 1 each MISCELLANE ONCE PRN PRN Reason: Consult order Sodium Chloride (0.9 % Sodium Chloride Flush 3 Ml Syringe) 3 ml IVFLUSH QSHIFT [facility] Last Admin: 02/08/22 08:54 Dose: 3 ml Documented by: ISAIAH Labs CBC & Chem 7: 02/08/22 07:09 02/08/22 07:09 Labs: Laboratory Results - last 24 hr 02/08/22 02/08/22 02/08/22 07:07 07:09 07:09 MCV 87.7 MCH 27.7 MCHC 31.6 RDW 13.2 Plt Count 150 L MPV 12.9 H Absolute Nucleated RBC 0.000 Nucleated RBC % (auto) 0.0 Anion Gap 9 L Estim Creat Clear Calc 70.9 Estimated GFR > 60 POC Glucose 86 Random Glucose 96 Calcium 8.6 D Assessment and Plan (1) Abdominal pain: Status: Acute (2) Diverticulitis: Status: Acute Plan 51-year-old female with acute diverticulitis. 1. Acute diverticulitis: Still has significant pain WBC normal, lactic acid normal, blood cultures sent. Started on IV antibiotics, clear liquid diet, pain management with IV morphine. GI evaluation-continue iv antibiotics, we may need advance diet to full liquid 2. Hypothyroidism: Continue levothyroxine. 3. Hypertension: Continue lisinopril. 4.dvt prophylax: s/c lovenox inpatient need: acute diverticultitis with no significant improvemnt yet-need iv antibiotics. Quality Stroke Does the patient have a stroke diagnosis?: No VTE Prior VTE?: No VTE Risk Level:: Medical - moderate - high VTE Device Contraindication: N/A - Device Ordered VTE Drug Contraindication: N/A - Med Ordered
--- NOTE | 2022-02-08 14:03 | MHC.CM.PN ---
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
[2022-02-08 14:16] VITALS: BP 123/71; PULSE 78; RESP 18; TEMP 36.6; O2SAT 96
--- NOTE | 2022-02-08 15:03 | PC.NURSE ---
pt vomitted large amt of green fluid
--- NOTE | 2022-02-08 15:10 | PC.NURSE ---
pt's iv in r ac is infiltrated. new iv to be placed.
--- NOTE | 2022-02-08 15:19 | PC.NURSE ---
#20 iv to r wrist inserted.
[2022-02-08] MEDS: Enoxaparin Sodium 40 MG/0.4 ML SYRINGE SUBCUT (15:25)
[2022-02-08 16:52] VITALS: BP 127/78; PULSE 74; RESP 16; TEMP 36.7; O2SAT 99
[2022-02-08 20:00] VITALS: BP 118/68; PULSE 72; RESP 16; TEMP 36.7; O2SAT 99
[2022-02-08] MEDS: Butalb/Acetamin/Caff 50/325/40 TABLET 1 TAB PO (21:41)
[2022-02-09] VITALS: BP 111/70; PULSE 62; RESP 16; TEMP 36.7; O2SAT 99
[2022-02-09] MEDS: Piperacillin Sodium/Tazobactam 3.375 GM in 0.9 % Sodium Chloride 50 ML IV ×4 (03:34→21:21)
[2022-02-09 04:57] VITALS: BP 136/83; PULSE 69; RESP 16; TEMP 36.2; O2SAT 97
[2022-02-09] MEDS: Levothyroxine Sodium 75 MCG TABLET PO (06:03)
[2022-02-09 07:23] LABS: Hematocrit 34.1 % (37.0-47.0); Hemoglobin 10.9 g/dl (12.0-16.0); Mean Corpuscular Hemoglobin 28.1 pg (27.0-33.0); Mean Corpuscular Volume 87.9 fL (80.0-98.0); Platelet Count 162 X10*3/uL (160-400); Red Blood Count 3.88 X10*6/uL (4.20-5.50); Red Cell Distribution Width 12.9 % (11.0-16.0)
[2022-02-09 07:33] LABS: Anion Gap 10 (12-20); Blood Urea Nitrogen 7 mg/dL (9-16); Calcium 9.2 mg/dL (8.4-10.2); Carbon Dioxide 28 mmol/L (22-29); Chloride 105 mmol/L (96-108); Creatinine Clr Calc Pharmacy 66.6; Estimated Glomerular Filt Rate > 60; Glucose Random 91 mg/dL (60-115); Potassium 3.8 mmol/L (3.3-5.1); Sodium 139 mmol/L (135-145)
[2022-02-09 08:26] VITALS: BP 139/86; PULSE 67; RESP 18; O2SAT 96
[2022-02-09] MEDS: lisinopriL 5 MG TABLET PO (08:29)
[2022-02-09] MEDS: 0.9 % Sodium Chloride 1,000 ML 100 ML IVCONT (08:29)
--- NOTE | 2022-02-09 10:35 | HO.PM.IMPN ---
Subjective Subjective Date of Service: 02/10/22 Interval History: cc: f/u on acute diverticulitis interval history: Pain is better Review of Systems no fever no n/v, pain is better Physical Exam Vital Signs: Vital Signs: Last Vital Signs Temp 97.2 F 02/09/22 04:57 Pulse 67 02/09/22 08:26 Resp 18 02/09/22 08:26 BP 139/86 02/09/22 08:26 Pulse Ox 96 02/09/22 08:26 BMI result Body Mass Index 27.1 Const: Other: General: AO X 3, no acute distress Resp: CTA bilateral CVS: S1,S2,RRR GI:+BS, Skin: No rash Neuro: motor grossly intact Psych: appropriate affect Objective Data Active Medications Acetaminophen/Butalbital/Caffeine (Butalb/Acetamin/Caff 50/325/40 Tablet) 1 tab PO Q4H PRN PRN Reason: Pain, Moderate (Pain Scale 4-6 Last Admin: 02/08/22 21:41 Dose: 1 tab Documented by: PHILIPPE Enoxaparin Sodium (Enoxaparin Sodium 40 Mg/0.4 Ml Syringe) 40 mg SUBCUT Q24H [facility] Last Admin: 02/08/22 15:25 Dose: 40 mg Documented by: ISAIAH Sodium Chloride (Ns) 1,000 mls @ 100 mls/hr IVCONT .Q10H [facility] Last Admin: 02/09/22 08:29 Dose: 100 mls/hr Documented by: MILTON Piperacillin Sod/Tazobactam (Sod 3.375 gm/ Sodium Chloride) 50 mls @ 100 mls/hr IV Q6H [facility] Last Admin: 02/09/22 08:28 Dose: 100 mls/hr Documented by: MILTON Levothyroxine Sodium (Levothyroxine Sodium 75 Mcg Tablet) 75 mcg PO MOTUWETHFRSA@0600 [facility] Last Admin: 02/09/22 06:03 Dose: 75 mcg Documented by: PHILIPPE Lisinopril (Lisinopril 5 Mg Tablet) 5 mg PO DAILY [facility]; Protocol Last Admin: 02/09/22 08:29 Dose: 5 mg Documented by: MILTON Morphine Sulfate (Morphine Sulfate 2 Mg/Ml Cartridge) 2 mg IVPUSH Q4H PRN; Protocol PRN Reason: Pain, Moderate (Pain Scale 4-6 Last Admin: 02/08/22 12:35 Dose: 2 mg Documented by: ISAIAH Non-Formulary Medication (Linaclotide [Linzess]) 145 mcg PO DAILY [facility] Ondansetron HCl (Ondansetron Hcl 4 Mg/2 Ml Vial) 4 mg IVPUSH Q8H PRN PRN Reason: Nausea and Vomiting Last Admin: 02/08/22 12:35 Dose: 4 mg Documented by: ISAIAH Pharmacy Consult (Consult Rx Perform Med Rec) 1 each MISCELLANE ONCE PRN PRN Reason: Consult order Sodium Chloride (0.9 % Sodium Chloride Flush 3 Ml Syringe) 3 ml IVFLUSH QSHIFT [facility] Last Admin: 02/09/22 08:35 Dose: Not Given Documented by: MILTON Non-Admin Reason: IV Running Labs CBC & Chem 7: 02/09/22 07:12 02/09/22 07:12 Labs: Laboratory Results - last 24 hr 02/09/22 02/09/22 07:12 07:12 MCV 87.9 MCH 28.1 MCHC 32.0 RDW 12.9 Plt Count 162 MPV 13.0 H Absolute Nucleated RBC 0.000 Nucleated RBC % (auto) 0.0 Anion Gap 10 L Estim Creat Clear Calc 66.6 Estimated GFR > 60 Random Glucose 91 Calcium 9.2 D Microbiology Microbiology Results: Microbiology 02/07/22 12:37 Blood Culture - Preliminary Blood - Venous No growth after 24 hours. 02/07/22 12:37 Blood Culture - Preliminary Blood - Venous No growth after 24 hours. Assessment and Plan (1) Abdominal pain: Status: Acute (2) Diverticulitis: Status: Acute Plan 51-year-old female with acute diverticulitis. 1. Acute diverticulitis: improving, advance diet and possible dc later today 2. Hypothyroidism: Continue levothyroxine. 3. Hypertension: Continue lisinopril. 4.dvt prophylax: s/c lovenox inpatient need: acute diverticultitis with no significant improvemnt yet-need iv antibiotics. Quality Stroke Does the patient have a stroke diagnosis?: No VTE Prior VTE?: No VTE Risk Level:: Medical - moderate - high VTE Device Contraindication: N/A - Device Ordered VTE Drug Contraindication: N/A - Med Ordered
--- NOTE | 2022-02-09 11:20 | PC.NURSE ---
Pt medicated per JAN. Safety And Health Manager used for pts questions and explanation of care. Pt denies abdominal pain at this time. Pt also denies nausea. pt is a/o and ambulatory independently to the bathroom. Pt tolerating a full liquid diet. Dr. Pleitez upgraded pt to regular diet. Bowels sound audible and active. Pt offering no complaints. plan is if pt tolerated regular lunch diet, she can go home. pt aware and okay with the plan. Callbell and belongings within reach at this time.
[2022-02-09 12:46] VITALS: BP 137/82; PULSE 64; RESP 16; O2SAT 96
[2022-02-09] MEDS: Milk of Magnesia 30 ML ORAL.SUSP PO (16:47)
[2022-02-09 19:28] VITALS: BP 138/80; PULSE 77; RESP 16; O2SAT 97
[2022-02-09] MEDS: diphenhydrAMINE HCL 50 MG/ML VIAL 25 MG IVPUSH (20:16)
[2022-02-09 23:27] VITALS: RESP 14
[2022-02-10] MEDS: Piperacillin Sodium/Tazobactam 3.375 GM in 0.9 % Sodium Chloride 50 ML IV ×2 (03:48→08:22)
--- NOTE | 2022-02-10 04:02 | PC.NURSE ---
This RN assumed care at 1900. Patient c/o rash on her abdomen, she states potentially related to something she ate? RN notified hospitalist, gave 25mg IV Benadryl with good effect. Patient received IV ABX, but does not wish to be hooked up to continuous fluids, patient is drinking PO fluids appropriately. Slept throughout the night, will continue to monitor
[2022-02-10 04:26] VITALS: RESP 14
[2022-02-10] MEDS: Levothyroxine Sodium 75 MCG TABLET PO (06:17)
[2022-02-10 08:22] VITALS: BP 126/79; PULSE 82; RESP 16; O2SAT 97
[2022-02-10] MEDS: lisinopriL 5 MG TABLET PO (08:22)
--- NOTE | 2022-02-10 08:43 | PC.NURSE ---
Pt noted to have a rash on her abdomen and itchy arms, pt also with bloody nose. Dr. Pleitez made aware and at bedside to see pt. Per verbal order, zosyn stopped. Licensed Physical Therapist used. Pt states that she had a BM last night after the milk of magnesia was given. Pt denies abdominal pain, nausea, and vomiting. pt is a/o and independtly ambulating in the unit. Per Dr. Pleitez, pt to be discharged today.
[2022-02-10] MEDS: levoFLOXacin 500 MG TABLET PO (10:46)
[2022-02-10] MEDS: metroNIDAZOLE 500 MG TABLET PO (10:46)
[2022-02-10 12:22] VITALS: BP 135/79; PULSE 70; RESP 14; O2SAT 97
--- NOTE | 2022-02-10 12:59 | PM.DS ---
DS: Providers Provider Date of Service: 02/09/22 Date of admission: 02/07/22 14:59 Primary care physician: Cedric Liao MD Consults: 02/07/22 14:59 Consult to Gastroenterology Routine Consulting Provider: [facility] Reason for consultation: Acute diverticulitis. Has provider been notified: No Consult to Urology Routine Consulting Provider: Hari Sandoval Reason for consultation: right hydranephrosis/UPJ stenosis Has provider been notified: No DS: Diagnosis Discharge Diagnosis (1) Abdominal pain: Status: Acute (2) Diverticulitis: Status: Acute DS: Summary Hospital Course Hospital Course: Chief Complaint: Acute diverticulitis. 51-year-old female with pmhx hypothyroidism, hypertension-came to the hospital because of left lower quadrant pain-she said it started yesterday, sharp, intermittent, also feels spasm in between. She said she had an episode of lose bowels yesterday also. She denies any nausea or vomiting or fever or chills or cough or phlegm or weakness or numbness or any urinary complaints. Denies headaches or dizziness Lab imaging reviewed: WBC count: 7.9 Hematocrit 12.7/39.9, platelets 156. CMP seems fine except ALT 46, lipase normal Lactic acid 1.3 ??CT/CT abdomen pelvis wo con IMPRESSION: ? Extensive colonic diverticulosis with sigmoid wall thickening and surrounding inflammatory fat stranding compatible with sigmoid diverticulitis,There is small amount of ill-defined fluid adjacent to the sigmoid colon along the left pelvic sidewall measuring approximately 1.3 cm, for which a small organizing collection cannot be excluded. Hospital course: Patient was admitted and treated with IV zosyn and IVF, and improve over the course of his hospitalization and was seen by GI and will be seen on outpatient basis. Will discharge with oral Levaquin and Flagyl. had an episode of nose bleed she says she gets this from time to time and and sees a gi doctor for this. She developpes some rash on abdomen after getting milk of magnesia and will be documented as allergy. Repeat CT of the abdomen 2 days later showed no abscess Time Spent with Patient Time attestation: Total time spent providing and/or coordinating discharge services: Discharge coordination time: Greater than 30 minutes Quality: Stroke Does the patient have a stroke diagnosis?: No Physical Exam Vital Signs: Vital Signs: Last Vital Signs Temp 97.2 F 03/29/22 04:57 Pulse 64 02/09/22 12:46 Resp 16 02/09/22 12:46 BP 137/82 02/09/22 12:46 Pulse Ox 96 02/09/22 12:46 BMI result Body Mass Index 27.1 DS: Data Data Completed and Pending Labs on day of discharge: Laboratory Results - last 24 hr 02/09/22 02/09/22 07:12 07:12 WBC 5.0 RBC 3.88 L Hgb 10.9 L Hct 34.1 L MCV 87.9 MCH 28.1 MCHC 32.0 RDW 12.9 Plt Count 162 MPV 13.0 H Absolute Nucleated RBC 0.000 Nucleated RBC % (auto) 0.0 Sodium 139 Potassium 3.8 Chloride 105 Carbon Dioxide 28 Anion Gap 10 L BUN 7 L Creatinine 0.81 Estim Creat Clear Calc 66.6 Estimated GFR > 60 Random Glucose 91 Calcium 9.2 D Preliminary micro results at discharge 02/07/22 12:37 Blood Culture - Preliminary Blood - Venous No growth after 48 hours. 02/07/22 12:37 Blood Culture - Preliminary Blood - Venous No growth after 48 hours. Discharge Plan Discharge Anticipated Discharge Date/Time: 02/10/22 12:38 Patient Disposition: Home, Self-Care Discharge Diagnosis: Acute diverticulitis Referrals: Kiesha Newsome MD [Physician] - 1 Week Name,MD Cedric [Primary Care Provider] - 1 Week Discharge Medications: New metronidazole 500 mg tablet 500 mg PO BID Qty: 10 0RF levofloxacin 500 mg tablet 500 mg PO DAILY 3 Days Qty: 3 0RF Continued lisinopril 5 mg tablet 1 tab PO DAILY 0RF levothyroxine [Levoxyl] 75 mcg tablet 75 mcg PO MOTUWETHFRSA@0600 0RF Rx Instructions: 75 mcg PO daily Tuesday- Tuesday; Linzess 145 mcg capsule 145 mcg PO DAILY Qty: 90 2RF Discharge Orders: Discharge Order (Routine); Ordered 02/10/22 Ordered By: Javon Pleitez Diet: advance to usual diet Activity on Discharge: As tolerated Stand Alone Forms: Patient Portal Discharge page, Work/School Release Care Plan Goals: full recovery from diverticulitis Health Concerns: diverticulitis Plan of Treatment: Take Levaquin and Flagyl as recommended and follow up with your Doctor in a week Assessment: As above
== END 2022-02-10 13:16 | disposition home or self-care (01) | DRG 244 ==
LOC: HO.ED 13:23 → HO.EDOVER 19:26 → HO.OBSV 02-08 09:42 → HO.EDOVER 02-08 16:33 → HO.S3 02-08 22:43 → HO.EDOVER 02-08 23:14
PROVIDERS: Admitting Provider Internal Medicine; Emergency Provider Emergency Medicine; PCP Internal Medicine Geriatric Medicine; Visit Provider Internal Medicine
DX: K57.32 Diverticulitis of large intestine without perforation or abscess without bleeding (principal); E03.9 Hypothyroidism, unspecified; K21.9 Gastro-esophageal reflux disease without esophagitis; I10 Essential (primary) hypertension; Z20.822 Contact with and (suspected) exposure to COVID-19; Z87.442 Personal history of urinary calculi; Z79.890 Hormone replacement therapy; Z79.899 Other long term (current) drug therapy
CPT/HCPCS: 36415; 74176; 80048; 80076; 81001; 82947; 83605; 83690; 83735; 85007; 85025; 85027; 87040; 87635; 96361; 96365; 96375; 99285; J1200; J1650; J1885; J2060; J2270; J2405; J2543

== ENCOUNTER → 2022-02-16 10:04 | Outpatient (BNVA) | payer MEDICAID, SELFPAY | PROVIDERS: PCP Internal Medicine Geriatric Medicine; Referring Provider Internal Medicine Geriatric Medicine; Visit Provider Nurse Practitioner Family | DX: K59.04 Chronic idiopathic constipation (principal); K57.92 Diverticulitis of intestine, part unspecified, without perforation or abscess without bleeding; R10.30 Lower abdominal pain, unspecified | CPT/HCPCS: 99212 ==

== ENCOUNTER 2022-02-22 10:51 | Outpatient (REF) | payer MEDICAID, SELFPAY ==
--- NOTE | ~2022-02-22 | US_ITS ---
EXAMINATION: US RETROPERITONEAL LIMITED (RENAL ONLY) CLINICAL INFORMATION: Calculus of kidney. COMPARISON: CT abdomen and pelvis 02/09/2022. Renal ultrasound 06/23/2021 TECHNIQUE: Real-time imaging of the kidneys. FINDINGS: RIGHT KIDNEY: 11.7 x 5.0 x 5.8 cm (SAG x AP x TRV). The kidney is normal in size, contour, and echogenicity. Renal cortical thickness is normal. No renal calculi or focal parenchymal lesions. Mild hydronephrosis similar to prior. LEFT KIDNEY: 9.5 x 5.1 x 4.0 cm (SAG x AP x TRV). The kidney is normal in size, contour, and echogenicity. Renal cortical thickness is normal. No calculi or focal parenchymal lesions. No hydronephrosis. Partially imaged liver appears echogenic. US/US renal BI IMPRESSION: Mild right hydronephrosis similar to prior. Partially imaged liver appears echogenic suggestive of hepatic steatosis or underlying liver disease. This could be further characterized with a dedicated right upper quadrant ultrasound if clinically indicated.
== END 2022-02-22 10:52 | disposition home or self-care (01) ==
LOC: HO.US 10:51
PROVIDERS: PCP Internal Medicine Geriatric Medicine; Visit Provider Urology
DX: N20.0 Calculus of kidney (principal)
CPT/HCPCS: 76775

== ENCOUNTER → 2022-03-15 14:16 | Outpatient (BNVA) | payer MEDICAID, SELFPAY | PROVIDERS: PCP Internal Medicine Geriatric Medicine; Referring Provider Internal Medicine Geriatric Medicine; Visit Provider Nurse Practitioner Family | DX: K59.04 Chronic idiopathic constipation (principal); K21.9 Gastro-esophageal reflux disease without esophagitis; R14.0 Abdominal distension (gaseous) | CPT/HCPCS: 99212 ==

== ENCOUNTER → 2022-04-08 10:59 | Outpatient (BNVA) | payer MEDICAID, SELFPAY | PROVIDERS: PCP Internal Medicine Geriatric Medicine | DX: N20.0 Calculus of kidney (principal) | CPT/HCPCS: 99212 ==

== ENCOUNTER 2022-04-19 09:37 | Outpatient (REF) | payer MEDICAID, SELFPAY ==
--- NOTE | ~2022-04-19 | MM_ITS ---
EXAMINATION: MM SCREENING DIGITAL BREAST TOMOSYNTHESIS, BILATERAL CLINICAL INFORMATION: Screening. Asymptomatic. The lifetime risk of breast cancer based on the Tyrer-Cuzick Model is 5.0%. COMPARISON: Mammography: April 16, 2021 and studies dating back to 08/26 2016 TECHNIQUE: Digital breast tomosynthesis is performed in both the craniocaudal and mediolateral oblique views along with computer-aided detection (CAD). Synthesized 2D images are generated from the tomosynthesis. FINDINGS: The breasts are heterogeneously dense, which may obscure small masses (ACR BI-RADS breast composition Category c). There are no significant masses, abnormal calcifications, or other abnormalities. Stable calcifications again seen within the central aspect of the right breast. MM/MM tomosynthesis screening BI IMPRESSION: There are no significant changes from prior study. ASSESSMENT: BI-RADS 1: Negative RECOMMENDATION: Routine annual mammography screening. This patient's information was entered into a reminder system with a target due date for their next mammogram.
== END 2022-04-19 09:38 | disposition home or self-care (01) ==
LOC: HO.MAMMO 09:37
PROVIDERS: PCP Internal Medicine Geriatric Medicine; Visit Provider Obstetrics & Gynecology
DX: K59.04 Chronic idiopathic constipation (principal); K21.9 Gastro-esophageal reflux disease without esophagitis; K57.90 Diverticulosis of intestine, part unspecified, without perforation or abscess without bleeding; Z91.09 Other allergy status, other than to drugs and biological substances; Z79.899 Other long term (current) drug therapy; Z12.31 Encounter for screening mammogram for malignant neoplasm of breast
CPT/HCPCS: 77063; 77067; 99212

== ENCOUNTER → 2022-05-18 08:27 | Outpatient (BNVA) | payer MEDICAID, SELFPAY | PROVIDERS: PCP Internal Medicine Geriatric Medicine; Visit Provider Nurse Practitioner Family | DX: K59.04 Chronic idiopathic constipation (principal); K21.9 Gastro-esophageal reflux disease without esophagitis; R14.0 Abdominal distension (gaseous); Z79.899 Other long term (current) drug therapy | CPT/HCPCS: 99212 ==

== ENCOUNTER → 2022-09-14 10:44 | Outpatient (BNVA) | payer MEDICAID, SELFPAY | PROVIDERS: PCP Internal Medicine Geriatric Medicine; Referring Provider Internal Medicine Geriatric Medicine; Visit Provider Nurse Practitioner Family | DX: K59.04 Chronic idiopathic constipation (principal); R14.0 Abdominal distension (gaseous); K21.9 Gastro-esophageal reflux disease without esophagitis | CPT/HCPCS: 99212 ==

== ENCOUNTER 2022-10-06 20:58 | Emergency (ER) | payer OTHER, MEDICAID, SELFPAY ==
--- NOTE | ~2022-10-06 | CT_ITS ---
EXAMINATION: CT FEMUR, LEFT WITHOUT CONTRAST CLINICAL INFORMATION: Left lower extremity injury. Suspicion of hamstring muscle tear. COMPARISON: None TECHNIQUE: Multidetector volumetric imaging of the left femur performed without IV contrast. Coronal and sagittal reformatted images are obtained and reviewed. This CT examination was performed using dose optimization techniques as appropriate, variously including the following: *Automated exposure control *Adjustment of mA and/or kV according to patient size (this includes techniques or standardized protocols for targeted exams where dose is matched to indication/reason for exam; i.e. extremities or head) *Use of iterative reconstruction technique DLP: 379 mGy-cm FINDINGS: No fracture or cortical disruption. Appropriate alignment of the hip and knee. Mild medial compartment joint space narrowing at the knee. Remaining joint spaces are maintained. No joint effusion of the hip or knee. The visualized pelvis is intact. No muscular atrophy. The ischial tuberosity hamstrings attachment appears normal. No inflammatory change. The musculature of the thigh is grossly intact. No superficial or deep fluid. No hematoma identified. CT/CT femur LT wo IV con IMPRESSION: No acute osseous abnormality of the left femur. No gross muscular abnormality identified.. No hematoma.
--- NOTE | ~2022-10-06 | XR_ITS ---
EXAMINATION: XR FOOT, LEFT CLINICAL INFORMATION: Twisting and fall with pain in foot COMPARISON: None TECHNIQUE: AP, lateral, and oblique views of the left foot. FINDINGS: The bones and soft tissues are unremarkable. No fracture. Alignment is anatomic. Joint spaces are maintained. XR/XR foot LT 2V IMPRESSION: No traumatic injury of left foot
[2022-10-06 21:09] VITALS: BP 144/85; PULSE 91; RESP 16; TEMP 36; O2SAT 98; BMI 25.9
[2022-10-06] MEDS: Cyclobenzaprine HCl 5 MG TABLET PO (23:02)
[2022-10-06] MEDS: oxyCODONE HCl Immed Release 5 MG TABLET PO (23:03)
[2022-10-06 23:37] VITALS: BP 117/69; PULSE 72; RESP 16; TEMP 36.7; O2SAT 97
--- NOTE | 2022-10-06 23:38 | ED_ITS ---
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 Patient is complaining of left lower extremities pain but no deformity, patient is able to ambulate and bear weight on the left lower extremity. Related Data Home Medications Medication Instructions Recorded Confirmed levothyroxine 75 mcg tablet 75 mcg PO MOTUWETHFRSA@0600 02/07/22 05/18/22 (Levoxyl) acetaminophen 500 mg capsule 500 mg PO Q6H PRN 09/14/22 cholecalciferol (vitamin D3) 25 25 mcg PO DAILY 09/14/22 mcg (1,000 unit) capsule (Vitamin D3) lisinopril 10 mg tablet 10 mg PO DAILY 09/14/22 Previous Rx's Medication Instructions Recorded polyethylene glycol 3350 17 gram 17 g PO DAILY #100 ea 04/19/22 oral powder packet (Miralax) docusate sodium 100 mg capsule 100 mg PO BEDTIME #90 caps 09/14/22 hydrocortisone 2.5 % topical cream 1 appl [place] BID-QID PRN hemorrhoids 09/14/22 with perineal applicator #30 grams (Proctosol HC) cyclobenzaprine 10 mg tablet 10 mg PO TID PRN muscle spasm #14 10/06/22 tabs ibuprofen 400 mg tablet 400 mg PO Q8H PRN pain #14 tabs 10/06/22 Allergies Allergy/AdvReac Type Severity Reaction Status Date / Time magnesium hydroxide Allergy Mild Rash Verified 09/14/22 11:11 [From Milk of Magnesia] Review of Systems Review of Systems: All other systems are reviewed and are negative Constitutional: Reports as per HPI and Reports no additional constitutional complaints Eyes: Reports as per HPI and Reports no additional eye complaints Reports system reviewed and no additional complaints, except as documented Cardiovascular: Reports as per HPI and Reports no additional cardiovascular complaints Respiratory: Reports as per HPI and Reports no additional respiratory complaints Gastrointestinal: Reports as per HPI and Reports no additional gastrointestinal complaints Genitourinary: Reports no additional female genitourinary complaints Musculoskeletal: Reports no additional musculoskeletal complaints Skin/Breast: Reports system reviewed and no additional complaints, except as docu Psychiatric: Reports no additional psychiatric complaints Endocrine: Reports no additional endocrine complaints Hematologic/Lymphatic: Reports no additional hematologic/lymphatic complaints Allergic/Immunologic: Reports no additional allergic/immunologic complaints Reports system reviewed and no additional complaints, except as documented and Reports Abnormal speech present [facility] Past Medical History Medical History Endometrial hyperplasia GERD (gastroesophageal reflux disease) Heartburn Hemorrhoids with complication Hypothyroidism Kidney stone Skin lesion of back Vitamin D deficiency Surgical History History of surgery Hx of colonoscopy Hx of esophagogastroduodenoscopy Hx of unilateral oophorectomy Tubal ligation status Family History Family History Father Hypertension Respiratory failure Mother Pancreatic cancer Social History Social History Alcohol intake: never Patient Tobacco Use Status: Never used Tobacco Advance Directives: No Advance Directives Information Provided: No Patient : No service: No Current occupational status: unemployed Physical Exam Vital Signs: Vital Signs: Last Vital Signs Temp 98.0 F 10/06/22 23:37 Pulse 72 10/06/22 23:37 Resp 16 10/06/22 23:37 BP 117/69 10/06/22 23:37 Pulse Ox 97 10/06/22 23:37 O2 Del Method 10/06/22 23:37 BMI result Body Mass Index 25.9 Vital signs have been reviewed as appeared to be correct. Blood pressure normal. Heart rate normal. Respiration rate normal. Temperature normal. Oxygen saturation normal. Appearance: Alert. Oriented X3. No acute distress. Head: Normal external exam. Normocephalic. Atraumatic. No Bazzi signs noted. No raccoon eyes noted Eyes: PERRLA. EOMI. Conjunctiva and sclera normal. Eyelids normal. ENT: TM's Normal. Pharynx normal. Uvula midline. Moist mucous membranes. No trismus noted. No drooling noted. No muffled voice noted. Neck: Normal inspection. Neck supple. FROM. No adenopathy. Thyroid Normal. No meningeal signs. No neck mass noted. CVS: Normal heart rate and rhythm. Heart sound normal. No murmurs noted. Pulses normal throughout. Respiratory: No respiratory distress. Painless inspiration. Breath sounds normal. No wheezes/rales/rhonchi noted. Chest nontender. No accessory muscle usage noted or decreased air movement noted. Abdomen: Soft and nontender. Bowel sounds normal in all 4 quadrants. No distention noted. No organomegaly noted. No visible injury noted. Back: No CVA tenderness. Full range of motion noted. Skin: Skin warm and dry. Normal skin color. Normal skin turgor. No rashes/lesions/lacerations noted. Extremities: Mild tenderness on the posterior aspect of left thigh, no deformity, no step-off, full range of left knee, mild tenderness of her left foot. Neuro: Oriented X 3. Cranial nerve exam: II-XII are grossly intact No motor deficit. No sensory deficit. Reflexes normal. Course Course Course Narrative: 52-year-old female status post left lower extremity injuries at work, negative radiographic study patient is able to ambulate in the emergency department will discharge with NSAIDs, muscle relaxant and wrist for 2 days. Medications Administered Discontinued Medications Generic Name Dose Route Start Last Admin Trade Name Freq PRN Reason Stop Dose Admin Cyclobenzaprine HCl 5 mg 10/06/22 22:29 10/06/22 23:02 Cyclobenzaprine Hcl 5 Mg Tablet PO 10/06/22 22:30 5 mg ONCE ONE Administration Oxycodone HCl 5 mg 10/06/22 22:29 10/06/22 23:03 Oxycodone Hcl Immed Release 5 Mg Tablet PO 10/06/22 22:30 5 mg ONCE ONE Administration MDM - Extremity Injury (Lower) Imaging Data Left femur CT: Attestation: I personally reviewed and interpreted this imaging study as follows: Radiologist's impression: No acute osseous abnormality of the left femur. No gross muscular abnormality identified.. No hematoma. ? Left foot x-ray: Attestation: I personally reviewed and interpreted this imaging study as follows: Radiologist's impression: No traumatic injury of left foot ? Discharge Plan Discharge Clinical Impression: Contusion of lower limb, left Patient Disposition: Home, Self-Care Instructions: Contusion in Adults (ED) Prescriptions: New cyclobenzaprine 10 mg tablet 10 mg PO TID PRN (Reason: muscle spasm) Qty: 14 0RF ibuprofen 400 mg tablet 400 mg PO Q8H PRN (Reason: pain) Qty: 14 0RF No Action levothyroxine [Levoxyl] 75 mcg tablet 75 mcg PO MOTUWETHFRSA@0600 Rx Instructions: 75 mcg PO daily Tuesday- Tuesday; polyethylene glycol 3350 [Miralax] 17 gram powder in packet 17 g PO DAILY Qty: 100 2RF cholecalciferol (vitamin D3) [Vitamin D3] 25 mcg (1,000 unit) capsule 25 mcg PO DAILY lisinopril 10 mg tablet 10 mg PO DAILY acetaminophen 500 mg capsule 500 mg PO Q6H PRN hydrocortisone [Proctosol HC] 2.5 % cream with perineal applicator 1 appl [place] BID-QID PRN (Reason: hemorrhoids) Qty: 30 2RF docusate sodium 100 mg capsule 100 mg PO BEDTIME Qty: 90 3RF Referrals: Name,MD Cedric [Primary Care Provider] - Stand Alone Forms: Work/School Release
== END 2022-10-06 23:57 | disposition home or self-care (01) ==
PROVIDERS: Emergency Provider Emergency Medicine; PCP Internal Medicine Geriatric Medicine
DX: S80.12XA Contusion of left lower leg, initial encounter (principal); W01.0XXA Fall on same level from slipping, tripping and stumbling without subsequent striking against object, initial encounter; Y93.9 Activity, unspecified; Y92.9 Unspecified place or not applicable; Y99.0 Civilian activity done for income or pay
CPT/HCPCS: 73620; 73700; 99284

== ENCOUNTER 2022-10-28 14:15 | Outpatient (REF) | payer MEDICAID, SELFPAY ==
--- NOTE | ~2022-10-28 | US_ITS ---
EXAMINATION: US THYROID CLINICAL INFORMATION: Thyroid nodule, acute pharyngitis, unspecified. COMPARISON: Thyroid ultrasound dated 12/24/2016. TECHNIQUE: Linear transducer grayscale and color Doppler examination with attention to the region of the thyroid. FINDINGS: SIZE: Measurements of the thyroid lobes and nodules are given in sagittal, anteroposterior and transverse dimensions respectively. Right Thyroid Lobe: 4.7 x 1.7 x 1.9 cm, volume 7.9 mL. Previously 5.6 x 2.8 x 2.2 cm, volume 18.0 mL. Parenchyma: The gland echotexture is heterogeneous. Thyroid vascularity is increased. Left Thyroid Lobe: 4.2 x 1.6 x 1.4 cm, volume 4.9 mL. Previously 3.9 x 2.3 x 2.2 cm, volume 7.2 mL. Parenchyma: The gland echotexture is heterogeneous. Thyroid vascularity is increased. Isthmus: 0.4 cm in maximum AP dimension. Previously 1.1 cm. Estimated total number of nodules greater than or equal to 1 cm: 1. Audit Analyst nodules are described as follows: 1. Location: Left lateral/superior. Size: 1.0 x 0.7 x 0.7 cm, volume 0.2 mL. Previously: This nodule is new. Nodule characteristics: Composition: Solid (2). Echogenicity: Hypoechoic (2). Shape: Not taller than wide (0). Margins: Smooth (0). Echogenic Foci: None (0). ACR TI-RADS total points: 4 ACR TI-RADS category: 4 2. Location: Left mid. Size: 0.6 x 0.3 x 0.5 cm, volume 0.04 mL. Previously: This nodule is new. Nodule characteristics: Composition: Solid/almost completely solid (2). Echogenicity: Hypoechoic (2). Shape: Not taller than wide (0). Margins: Smooth (0). Echogenic Foci: None (0). ACR TI-RADS total points: 4 ACR TI-RADS category: 4 NODES: There is a normal-sized 1.5 x 0.5 x 0.8 cm right cervical lymph node. It has an echogenic central fatty hilum and expected degree of internal vascularity, benign morphologic features. US/US thyroid IMPRESSION: 2 nodules are seen within the left thyroid superimposed on a background of diffuse heterogeneity and increased vascularity. Each of the nodules would be considered TI RADS category 4, with follow-up ultrasound in one year recommended given the size of the largest nodule, 1.0 cm. The diffuse thyroid heterogeneity and increased vascularity can be seen in the setting of thyroiditis. ACR TI-RADS RECOMMENDATION REFERENCE: * TR4 (4-6 points): FNA if more than or equal to 1.5 cm in maximum dimension, followup ultrasound in 1, 2, 3 and 5 years if 1 to 1.4 cm in maximum dimension.
== END 2022-10-28 14:16 | disposition home or self-care (01) ==
LOC: HO.US 14:15
PROVIDERS: Visit Provider Emergency Medicine
DX: E03.9 Hypothyroidism, unspecified (principal); E04.1 Nontoxic single thyroid nodule
CPT/HCPCS: 76536

== ENCOUNTER 2022-11-02 14:54 | Emergency (ER) | payer MEDICAID, SELFPAY ==
--- NOTE | ~2022-11-02 | XR_ITS ---
EXAMINATION: XR CHEST CLINICAL INFORMATION: Small correlation COMPARISON: November 19, 2017 TECHNIQUE: Frontal view of the chest was obtained. FINDINGS: There are some linear markings at the left lung base likely related to atelectasis. No confluent parenchymal disease identified. No pneumothorax or pleural effusion. Heart normal size. No evidence of pulmonary edema. XR/XR chest 1V IMPRESSION: Left base atelectasis.
[2022-11-02 15:11] VITALS: BP 168/88; O2SAT 100
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
[2022-11-02 15:28] VITALS: BP 110/51; PULSE 79; RESP 16; TEMP 36.6; O2SAT 100; BMI 27.6
[2022-11-02 15:44] LABS: Basophils Absolute Auto 0.1 X10*3/uL (0.0-0.2); Basophils Percent Auto 1.2 % (0-2); Eosinophils Absolute Auto 0.1 X10*3/uL (0.0-0.4); Eosinophils Percent Auto 1.7 % (0-4); Hematocrit 37.9 % (37.0-47.0); Hemoglobin 12.2 g/dl (12.0-16.0); Imm Gran Abs Auto 0.06 X10*3/uL (0.00-0.03); Lymphocytes Percent Auto 33.5 % (20-40); Mean Corpuscular HGB Conc 32.2 g/dl (31.0-35.0); Mean Corpuscular Hemoglobin 27.7 pg (27.0-33.0); Mean Corpuscular Volume 85.9 fL (80.0-98.0); Mean Platelet Volume 13.1 fL (9.4-12.3); Monocytes Absolute Auto 0.4 X10*3/uL (0.1-1.2); Monocytes Percent Auto 7.6 % (2-11); Neutrophils Absolute Auto 3.2 x10*3/uL (2.0-8.3); Platelet Count 144 X10*3/uL (160-400); Red Blood Count 4.41 X10*6/uL (4.20-5.50); Red Cell Distribution Width 13.1 % (11.0-16.0); White Blood Count 5.8 X10*3/uL (4.8-10.8)
[2022-11-02 15:45] LABS: Carbon Monoxide Refer to POC result
[2022-11-02 15:45] LABS: Carbon Monoxide POC 0.9 %
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
[2022-11-02 15:56] LABS: Anion Gap 12 (12-20); Blood Urea Nitrogen 12 mg/dL (9-16); Calcium 9.4 mg/dL (8.4-10.2); Carbon Dioxide 27 mmol/L (22-29); Chloride 104 mmol/L (96-108); Creatinine Clr Calc Pharmacy 71.7; Estimated Glomerular Filt Rate > 60; Glucose Random 99 mg/dL (60-115); Potassium 3.7 mmol/L (3.3-5.1); Sodium 139 mmol/L (135-145)
== END 2022-11-02 19:10 | disposition home or self-care (01) ==
PROVIDERS: Emergency Provider Emergency Medicine; PCP Internal Medicine Geriatric Medicine
DX: T59.811A Toxic effect of smoke, accidental (unintentional), initial encounter (principal); J70.5 Respiratory conditions due to smoke inhalation; Y92.038 Other place in apartment as the place of occurrence of the external cause
CPT/HCPCS: 36415; 71045; 80048; 82375; 85025; 99281; 99282; 99283

== ENCOUNTER 2022-11-08 00:59 | Emergency (ER) | payer MEDICAID, SELFPAY ==
[2022-11-08 01:31] VITALS: BP 148/91; PULSE 110; RESP 16; TEMP 37.5; O2SAT 97; BMI 26.2
--- NOTE | 2022-11-08 01:44 | ED.ABDPAIN ---
HPI - Abdominal Pain General Chief Complaint: Abdominal Pain Stated Complaint: pain in left side Time Seen by Provider: 11/08/22 01:37 Source: patient Mode of arrival: ambulatory Limitations: no limitations History of Present Illness HPI narrative: Patient comes to the emergency room complaining of left lower quadrant pain for approximately 16 hours. Patient states that she has history of diverticulitis, states the pain is worse than the last time she was admitted for diverticulitis, 9 months ago. Patient states that she had a small bowel movement, patient has chronic constipation, takes Linzess. Complaining of nausea, no vomiting. Patient denies flank pain, no fever chills, no URI or UTI symptoms Related Data Home Medications Medication Instructions Recorded Confirmed levothyroxine 75 mcg tablet 75 mcg PO MOTUWETHFRSA@0600 02/07/22 05/18/22 (Levoxyl) acetaminophen 500 mg capsule 500 mg PO Q6H PRN 09/14/22 cholecalciferol (vitamin D3) 25 25 mcg PO DAILY 09/14/22 mcg (1,000 unit) capsule (Vitamin D3) lisinopril 10 mg tablet 10 mg PO DAILY 09/14/22 Previous Rx's Medication Instructions Recorded polyethylene glycol 3350 17 gram 17 g PO DAILY #100 ea 04/19/22 oral powder packet (Miralax) docusate sodium 100 mg capsule 100 mg PO BEDTIME #90 caps 09/14/22 hydrocortisone 2.5 % topical cream 1 appl [place] BID-QID PRN hemorrhoids 09/14/22 with perineal applicator #30 grams (Proctosol HC) cyclobenzaprine 10 mg tablet 10 mg PO TID PRN muscle spasm #14 10/06/22 tabs ibuprofen 400 mg tablet 400 mg PO Q8H PRN pain #14 tabs 10/06/22 levofloxacin 500 mg tablet 500 mg PO DAILY #9 tabs 11/08/22 metronidazole 500 mg tablet 500 mg PO BID #20 tabs 11/08/22 oxycodone 5 mg tablet 5 mg PO BID PRN pain #7 tabs 11/08/22 Allergies Allergy/AdvReac Type Severity Reaction Status Date / Time magnesium hydroxide Allergy Mild Rash Verified 11/08/22 01:42 [From Milk of Magnesia] Review of Systems Review of Systems Constitutional : No Weight loss, No Fever, No Chills, No Night Sweats, No Fatigue, No Malaise ENT/Mouth : No Hearing loss, No Ear Pain, No Nasal Congestion, No Sinus Pain, No Hoarseness, No sore throat, No Rhinorrhea, No Swallowing Difficulty Eyes: No Eye Pain, No Swelling, No Redness, No Foreign Body, No Discharge, No Vision Changes Cardiovascular : No Chest Pain, No SOB, No Dyspnea on Exertion, No Orthopnea, No Edema, No Palpitations Respiratory : No Cough, No Sputum, No Wheezing, No Smoke Exposure, No Dyspnea Gastrointestinal : Complaining of nausea, no vomiting, no diarrhea, complaining of chronic constipation, complaining of left lower quadrant pain Genitourinary : no irregular bleeding, No Dysuria, No Urinary Frequency, No Hematuria, No Urinary Incontinence, No Urgency, No Flank Pain, No Urinary Flow Changes, No Hesitancy Musculoskeletal : No joint pain, No Myalgias, No Joint Swelling Skin : No Skin Lesions, No rash Neuro : No Weakness, No Numbness, No Paresthesias, No Loss of Consciousness, No Dizziness, No Headache Psych : No Anxiety/Panic, No Depression, No SI/HI/AH/VH, No Social Issues, Heme/Lymph: No Bruising, No Bleeding,No Lymphadenopathy Endocrine : No Polyuria, No Polydipsia, No Temperature Intolerance PMFSH Past Medical History Medical History Endometrial hyperplasia GERD (gastroesophageal reflux disease) Heartburn Hemorrhoids with complication Hypothyroidism Kidney stone Skin lesion of back Vitamin D deficiency Surgical History History of surgery Hx of colonoscopy Hx of esophagogastroduodenoscopy Hx of unilateral oophorectomy Tubal ligation status Family History Family History Father Hypertension Respiratory failure Mother Pancreatic cancer Social History Social History Alcohol intake: never Patient Tobacco Use Status: Never used Tobacco Advance Directives: No Advance Directives Information Provided: Yes service: No Current occupational status: unemployed Physical Exam ED Vital Signs: Vital Signs - 24 hr 11/08/22 01:31 11/08/22 02:41 11/08/22 02:48 Temperature 99.5 F 99.4 F Pulse Rate 110 H 104 H Respiratory Rate 16 18 14 Blood Pressure 148/91 H 143/90 H Pulse Oximetry 97 93 Oxygen Delivery Method Room Air Room Air 11/08/22 03:44 Temperature 97.6 F Pulse Rate 100 Respiratory Rate 17 Blood Pressure 135/82 Pulse Oximetry 96 Oxygen Delivery Method Room Air BMI result Body Mass Index 26.2 Const Other: Appearance: Alert. Oriented X3. Seems very uncomfortable Eyes: Pupils equal, round and reactive to light. ENT: Pharynx normal. Neck: Normal inspection. Neck supple. No lymph nodes noted. No crepitus CVS: Normal heart rate and rhythm. Pulses normal. Normal S1 and S2 Respiratory: No respiratory distress. Breath sounds normal. No Wheezing. No rales Abdomen: Soft , tenderness to palpation in the left lower quadrant, no guarding, no rebound Skin: Skin warm and dry. Normal skin color. Normal skin turgor. Extremities: No lower extremity edema. No Lacerations. No Rash Neuro: Oriented X 3. No motor deficit. No sensory deficit. Moving all extremities. No slurred speech. CN 2 through 12 grossly intact Psych: calm, cooperative, normal affect Course Course Course Narrative: Patient likely having a diverticulitis flare. All of patient's labs and imaging pending. Patient will be given IV fluids, Zofran and morphine. CT scan of the abdomen/pelvis pending. Patient's white blood cell count is slightly elevated, CT scan shows diverticulitis. The spine pain medication, patient continues to have significant left lower quadrant pain. I discussed the patient with Dr. Rocha, who will admit the pt. 05:00: Patient states that she changed her mind, patient no longer wants to be admitted. Patient states that she feels well enough to go home. Patient received. The 1st dose of levofloxacin and metronidazole. Medical Decision Making Differential Diagnosis Differential Diagnoses: The differential diagnosis associated with the presentation includes (Ovarian cyst, diverticulitis, diverticulosis, kidney stone) Admission/Observation Consideration of admission/observation: Escalation of care including admission/observation considered (Despite pain medication, patient continues being symptomatic, having pain.) Consult Healthcare Provider Management of the patient was discussed with: Hospitalist (Dr. Rocha agrees to admit the patient.) Patient changed her mind, she does no longer want to stay in the hospital, asking to be discharged. Patient is feeling well, stable to go home. Discussed with the patient that if she has any recurrent symptoms or she does not well outpatient, she needs to return to the emergency room. Lab Data MDM Lab Attestation statement: I reviewed the patient's lab results. Result Diagrams: 11/08/22 02:24 11/08/22 02:24 Labs: Lab Results 11/08/22 11/08/22 11/08/22 Range/Units 02:24 02:24 02:24 WBC 11.7 H (4.8-10.8) X10*3/uL RBC 4.72 (4.20-5.50) X10*6/uL Hgb 13.0 (12.0-16.0) g/dl Hct 40.6 (37.0-47.0) % MCV 86.0 (80.0-98.0) fL MCH 27.5 (27.0-33.0) pg MCHC 32.0 (31.0-35.0) g/dl RDW 13.3 (11.0-16.0) % Plt Count 176 (160-400) X10*3/uL MPV 13.3 H (9.4-12.3) fL Immature Gran % (Auto) 0.3 (0.0-0.4) % Neut % (Auto) 74.3 H (45-73) % Lymph % (Auto) 16.0 L (20-40) % [place] % (Auto) 8.2 (2-11) % Eos % (Auto) 0.5 (0-4) % Baso % (Auto) 0.7 (0-2) % Lymph # (Auto) 1.9 (1.2-4.9) X10*3/uL [place] # (Auto) 1.0 (0.1-1.2) X10*3/uL Eos # (Auto) 0.1 (0.0-0.4) X10*3/uL Baso # (Auto) 0.1 (0.0-0.2) X10*3/uL Abs Immat Gran (auto) 0.03 (0.00-0.03) X10*3/uL Absolute Neuts (auto) 8.7 H (2.0-8.3) x10*3/uL Absolute Nucleated RBC 0.000 (0.0-0.012) X10*3/uL Nucleated RBC % (auto) 0.0 (0.0-0.2) /100WBC Sodium 137 (135-145) mmol/L Potassium 4.3 (3.3-5.1) mmol/L Chloride 101 (96-108) mmol/L Carbon Dioxide 27 (22-29) mmol/L Anion Gap 13 (12-20) BUN 13 (9-16) mg/dL Creatinine 0.99 (0.5-1.4) mg/dL Estim Creat Clear Calc 55.3 Estimated GFR 58 Random Glucose 122 H (60-115) mg/dL Lactic Acid 1.1 (0.5-2.0) mmol/L Calcium 10.0 D (8.4-10.2) mg/dL Total Bilirubin 0.9 (0.0-1.0) mg/dL Direct Bilirubin 0.3 (0.0-0.5) mg/dL AST 19 (5-31) U/L ALT 26 (0-31) U/L Alkaline Phosphatase 113 (39-117) U/L Total Protein 7.8 (6.5-8.0) g/dL Albumin 4.7 (3.5-5.0) g/dL Urine Color Urine Appearance Urine pH (5.0-9.0) Ur Specific [place] (1.005-1.025) Urine Protein (Neg-Trace) mg/dL Urine Glucose (UA) (Negative) mg/dL Urine Ketones (Negative) mg/dL Urine Blood (Negative) Urine Nitrite (Negative) Ur Leukocyte Esterase (Negative) Urine RBC (0-2) /HPF Urine WBC (0-5) /HPF Ur Squamous Epith Cells (0-2) /HPF Urine Bacteria (None Seen) Hyaline Casts (0-2) /LPF COVID-19 (NATHEN) (Negative) COVID-19 Clin Com 11/08/22 11/08/22 Range/Units 02:24 02:31 WBC (4.8-10.8) X10*3/uL RBC (4.20-5.50) X10*6/uL Hgb (12.0-16.0) g/dl Hct (37.0-47.0) % MCV (80.0-98.0) fL MCH (27.0-33.0) pg MCHC (31.0-35.0) g/dl RDW (11.0-16.0) % Plt Count (160-400) X10*3/uL MPV (9.4-12.3) fL Immature Gran % (Auto) (0.0-0.4) % Neut % (Auto) (45-73) % Lymph % (Auto) (20-40) % [place] % (Auto) (2-11) % Eos % (Auto) (0-4) % Baso % (Auto) (0-2) % Lymph # (Auto) (1.2-4.9) X10*3/uL [place] # (Auto) (0.1-1.2) X10*3/uL Eos # (Auto) (0.0-0.4) X10*3/uL Baso # (Auto) (0.0-0.2) X10*3/uL Abs Immat Gran (auto) (0.00-0.03) X10*3/uL Absolute Neuts (auto) (2.0-8.3) x10*3/uL Absolute Nucleated RBC (0.0-0.012) X10*3/uL Nucleated RBC % (auto) (0.0-0.2) /100WBC Sodium (135-145) mmol/L Potassium (3.3-5.1) mmol/L Chloride (96-108) mmol/L Carbon Dioxide (22-29) mmol/L Anion Gap (12-20) BUN (9-16) mg/dL Creatinine (0.5-1.4) mg/dL Estim Creat Clear Calc Estimated GFR Random Glucose (60-115) mg/dL Lactic Acid (0.5-2.0) mmol/L Calcium (8.4-10.2) mg/dL Total Bilirubin (0.0-1.0) mg/dL Direct Bilirubin (0.0-0.5) mg/dL AST (5-31) U/L ALT (0-31) U/L Alkaline Phosphatase (39-117) U/L Total Protein (6.5-8.0) g/dL Albumin (3.5-5.0) g/dL Urine Color Yellow Urine Appearance Clear Urine pH 6.5 (5.0-9.0) Ur Specific [place] <= 1.005 (1.005-1.025) Urine Protein 30 (1+) H (Neg-Trace) mg/dL Urine Glucose (UA) Negative (Negative) mg/dL Urine Ketones Negative (Negative) mg/dL Urine Blood Negative (Negative) Urine Nitrite Negative (Negative) Ur Leukocyte Esterase Trace H (Negative) Urine RBC 0-2 (0-2) /HPF Urine WBC 11-20 H (0-5) /HPF Ur Squamous Epith Cells 3-5 (0-2) /HPF Urine Bacteria None Seen (None Seen) Hyaline Casts 0-2 (0-2) /LPF COVID-19 (NATHEN) Negative (Negative) COVID-19 Clin Com See Note Radiology Impression Discussion of test interpretation with radiology: I have reviewed the radiologist's reading. Radiologist Impression: FINDINGS: LUNG BASES: The visualized lung bases are unremarkable.? LIVER, GALLBLADDER, AND BILIARY TREE: The liver is normal in size, shape, and attenuation. No focal hepatic lesion or biliary ductal dilatation is present. The gallbladder is unremarkable with no evidence of radiopaque gallstones, gallbladder wall thickening, or obvious pericholecystic inflammatory changes.? PANCREAS: Unremarkable.? SPLEEN: Unremarkable.? ADRENAL GLANDS: Unremarkable.? KIDNEYS AND URETERS: Prominent right extrarenal pelvis noted, without obstructing calculus; this is similar to prior which raises the possibility of a component of UPJ obstruction. No left hydronephrosis. Bilateral nephrograms are symmetric.? BLADDER: Unremarkable.? GASTROINTESTINAL TRACT: No evidence of bowel obstruction. There is a short segment of wall thickening in the distal descending colon with associated surrounding inflammation in the setting of diverticula, most consistent with diverticulitis. Small amount of free fluid is present. No free air is seen. The appendix is unremarkable.? ABDOMINAL WALL: No significant hernia is appreciated.? LYMPH NODES: Normal. VASCULAR: Unremarkable. PELVIC VISCERA: Unremarkable.? OSSEOUS STRUCTURES: Unremarkable.? CT/CT abdomen pelvis w IV con IMPRESSION: Diverticulitis of the distal descending colon. Correlation with recent or followup colonoscopy is advised to exclude an underlying mass lesion. ? Medications Administered Discontinued Medications Generic Name Dose Route Start Last Admin Trade Name Freq PRN Reason Stop Dose Admin Sodium Chloride 1,000 mls @ 999 mls/hr 11/08/22 01:42 11/08/22 02:38 Ns IVCONT 11/08/22 02:42 999 mls/hr .Q1H1M ONE Administration Iohexol 85 ml 11/08/22 03:48 11/08/22 03:49 Iohexol 350 Mg/Ml 100 Ml Infus..Btl IV 11/08/22 03:49 85 ml ONCE ONE Administration Morphine Sulfate 4 mg 11/08/22 01:43 11/08/22 02:41 Morphine Sulfate 4 Mg/Ml Cartridge IVPUSH 11/08/22 01:44 4 mg ONCE ONE Administration Protocol Ondansetron HCl 4 mg 11/08/22 01:43 11/08/22 02:41 Ondansetron Hcl 4 Mg/2 Ml Vial IVPUSH 11/08/22 01:44 4 mg ONCE ONE Administration Critical Care Time Critical Care Time Critical Care Time: Yes Total Critical Care Time: 30 Attestation: I have personally provided critical care time. Time includes review of lab data, radiology results, discussion with consultants, and monitoring for potential decompensation. Intervention performed as documented. Discharge Plan Discharge Clinical Impression: Diverticulitis Patient Disposition: Home, Self-Care Instructions: Diverticulitis (ED), Diverticulitis Diet (ED) Additional Instructions: Please follow-up with your primary care physician tomorrow. If you have any worsening or new symptoms, please return to the emergency room or call 911 Prescriptions: New levofloxacin 500 mg tablet 500 mg PO DAILY Qty: 9 0RF metronidazole 500 mg tablet 500 mg PO BID Qty: 20 0RF oxycodone 5 mg tablet 5 mg PO BID PRN (Reason: pain) Qty: 7 0RF Rx Instructions: Partial Fill upon patient request. No Action levothyroxine [Levoxyl] 75 mcg tablet 75 mcg PO MOTUWETHFRSA@0600 Rx Instructions: 75 mcg PO daily Tuesday- Tuesday; cyclobenzaprine 10 mg tablet 10 mg PO TID PRN (Reason: muscle spasm) Qty: 14 0RF ibuprofen 400 mg tablet 400 mg PO Q8H PRN (Reason: pain) Qty: 14 0RF polyethylene glycol 3350 [Miralax] 17 gram powder in packet 17 g PO DAILY Qty: 100 2RF cholecalciferol (vitamin D3) [Vitamin D3] 25 mcg (1,000 unit) capsule 25 mcg PO DAILY lisinopril 10 mg tablet 10 mg PO DAILY acetaminophen 500 mg capsule 500 mg PO Q6H PRN hydrocortisone [Proctosol HC] 2.5 % cream with perineal applicator 1 appl [place] BID-QID PRN (Reason: hemorrhoids) Qty: 30 2RF docusate sodium 100 mg capsule 100 mg PO BEDTIME Qty: 90 3RF
[2022-11-08 02:31] LABS: PLT ABN DIST 1; SCAN SMEAR FLAG 1; WBC ABN SCTR 1; WBC ABN SCTR FOR CBC 1
[2022-11-08 02:33] LABS: Basophils Absolute Auto 0.1 X10*3/uL (0.0-0.2); Basophils Percent Auto 0.7 % (0-2); Eosinophils Absolute Auto 0.1 X10*3/uL (0.0-0.4); Eosinophils Percent Auto 0.5 % (0-4); Hematocrit 40.6 % (37.0-47.0); Imm Gran Abs Auto 0.03 X10*3/uL (0.00-0.03); Imm Gran Pct Auto 0.3 % (0.0-0.4); Lymphocytes Absolute Auto 1.9 X10*3/uL (1.2-4.9); Mean Corpuscular Hemoglobin 27.5 pg (27.0-33.0); Mean Platelet Volume 13.3 fL (9.4-12.3); Monocytes Percent Auto 8.2 % (2-11); Neutrophils Absolute Auto 8.7 x10*3/uL (2.0-8.3); Neutrophils Percent Auto 74.3 % (45-73); Platelet Count 176 X10*3/uL (160-400); Red Blood Count 4.72 X10*6/uL (4.20-5.50); Red Cell Distribution Width 13.3 % (11.0-16.0)
[2022-11-08 02:35] LABS: MANUAL DIFF FLAG NO; White Blood Count 11.7 X10*3/uL (4.8-10.8)
[2022-11-08 02:38] LABS: Appearance Urine Clear; Color Urine Yellow; Glucose Urine UA Negative (Negative); Leukocyte Esterase Urine Trace (Negative); Nitrite Urine Negative (Negative); PH 6.5 (5.0-9.0); Specific Gravity - Urine <= 1.005 (1.005-1.025); UMIC TRIGGER UACC YES; Urine Blood Negative (Negative); Urine Ketones Negative (Negative); Urine Protein 30 (1+) mg/dL (Neg-Trace)
[2022-11-08 02:41] VITALS: RESP 18
[2022-11-08 02:43] LABS: Bacteria Urine None Seen (None Seen); Hyaline Casts Urine 0-2 /LPF (0-2); RBC Urine 0-2 /HPF (0-2); UACC Culture Trigger YES
[2022-11-08 02:43] LABS: Lactic Acid 1.1 mmol/L (0.5-2.0)
[2022-11-08 02:45] LABS: COVID-19 Test Negative (Negative); IDNOW Serial# BCCEAD1C
[2022-11-08 02:48] VITALS: BP 143/90; PULSE 104; RESP 14; TEMP 37.4; O2SAT 93
[2022-11-08 02:54] LABS: Alanine Aminotransferase 26 U/L (0-31); Albumin Level 4.7 g/dL (3.5-5.0); Alkaline Phosphatase 113 U/L (39-117); Anion Gap 13 (12-20); Aspartate Amino Transferase 19 U/L (5-31); Bilirubin Direct 0.3 mg/dL (0.0-0.5); Bilirubin Total 0.9 mg/dL (0.0-1.0); Blood Urea Nitrogen 13 mg/dL (9-16); Carbon Dioxide 27 mmol/L (22-29); Chloride 101 mmol/L (96-108); Creatinine Clr Calc Pharmacy 55.3; Estimated Glomerular Filt Rate 58; Glucose Random 122 mg/dL (60-115); Potassium 4.3 mmol/L (3.3-5.1); Sodium 137 mmol/L (135-145); Total Protein 7.8 g/dL (6.5-8.0)
--- NOTE | 2022-11-08 03:03 | PC.NURSE ---
this Rn established care for patient. Pt c/o 05/23 throbbing constant LLQ abdominal pain onset 1 day ago. Labs, urine specimen, covid swab obtained per order. Medication administered per Jan.
[2022-11-08 03:44] VITALS: BP 135/82; PULSE 100; RESP 17; TEMP 36.4; O2SAT 96
[2022-11-08 05:17] VITALS: BP 123/77; PULSE 88; RESP 17; TEMP 36.1; O2SAT 96
== END 2022-11-08 05:57 | disposition home or self-care (01) ==
PROVIDERS: Emergency Provider Emergency Medicine; PCP Internal Medicine Geriatric Medicine
DX: K57.32 Diverticulitis of large intestine without perforation or abscess without bleeding (principal); R10.32 Left lower quadrant pain; Z20.822 Contact with and (suspected) exposure to COVID-19
CPT/HCPCS: 74177; 80048; 80076; 81001; 83605; 85025; 87040; 87086; 87635; 96361; 96374; 96375; 99285; J1885; J2270; J2405; Q9967

== ENCOUNTER → 2022-11-17 08:39 | Outpatient (BNVA) | payer MEDICAID, SELFPAY | PROVIDERS: PCP Internal Medicine Geriatric Medicine; Visit Provider Nurse Practitioner Family | DX: K59.04 Chronic idiopathic constipation (principal); K21.9 Gastro-esophageal reflux disease without esophagitis; K57.92 Diverticulitis of intestine, part unspecified, without perforation or abscess without bleeding; Z79.899 Other long term (current) drug therapy | CPT/HCPCS: 99212 ==

== ENCOUNTER → 2022-12-13 13:41 | Outpatient (BNVA) | payer MEDICAID, SELFPAY | PROVIDERS: PCP Internal Medicine Geriatric Medicine; Visit Provider Nurse Practitioner Family | DX: K21.9 Gastro-esophageal reflux disease without esophagitis (principal); K59.04 Chronic idiopathic constipation; K57.92 Diverticulitis of intestine, part unspecified, without perforation or abscess without bleeding | CPT/HCPCS: 99212 ==

== ENCOUNTER 2022-12-23 11:49 | Observation (INO) | payer MEDICAID, SELFPAY ==
--- NOTE | ~2022-12-23 | CT_ITS ---
EXAMINATION: CT ABDOMEN AND PELVIS WITH CONTRAST CLINICAL INFORMATION: Left lower quadrant pain COMPARISON: CT abdomen pelvis 11/08/2022 TECHNIQUE: Multidetector volumetric images were obtained from the superior aspect of the liver through the pubic symphysis following administration 85 mL of Omnipaque 350 intravenous contrast. Sagittal and coronal reformatted images were obtained on the technologist's workstation. Oral contrast: No This CT examination was performed using dose optimization techniques as appropriate, variously including the following: *Automated exposure control *Adjustment of mA and/or kV according to patient size (this includes techniques or standardized protocols for targeted exams where dose is matched to indication/reason for exam; i.e. extremities or head) *Use of iterative reconstruction technique DLP: 468 mGy-cm FINDINGS: LUNG BASES: Unremarkable. ABDOMINAL AND PELVIC WALL: Diastases of the rectus abdominis musculature with a tiny superimposed fat-containing umbilical hernia. LIVER AND BILIARY TREE: Hypoattenuating hepatic parenchyma compatible with hepatic steatosis. GALLBLADDER: Unremarkable. PANCREAS: Unremarkable. SPLEEN: Unremarkable. ADRENAL GLANDS: Unremarkable. KIDNEYS AND URETERS: Mild right hydronephrosis with relative decompression of the ureter at the ureterovesicular junction which may reflect a degree of underlying UPJ stenosis. GASTROINTESTINAL TRACT: Colonic diverticulosis with pericolonic inflammatory fat stranding involving the junction of the descending and sigmoid colon with associated wall thickening suspicious for diverticulitis. No organized fluid collection to suggest abscess or extraluminal air to suggest perforation. Normal appendix. VASCULAR: Unremarkable. LYMPH NODES/PERITONEUM: No lymphadenopathy. FREE FLUID: None. BLADDER: Unremarkable. PELVIC VISCERA: Unremarkable. OSSEOUS STRUCTURES: Unremarkable. CT/CT abdomen pelvis w IV con IMPRESSION: Colonic diverticulosis with pericolonic inflammatory fat stranding involving the junction of the descending and sigmoid colon with associated wall thickening compatible with diverticulitis. No organized fluid collection to suggest abscess or extraluminal air to suggest perforation. Mild right hydronephrosis with relative decompression of the ureter at the ureterovesicular junction which may reflect a degree of underlying UPJ stenosis. Hypoattenuating hepatic parenchyma compatible with hepatic steatosis.
[2022-12-23 12:12] VITALS: BP 139/92; PULSE 96; RESP 17; TEMP 35.9; O2SAT 98; BMI 25.9
--- NOTE | 2022-12-23 12:13 | ED_ITS ---
HPI - Abdominal Pain General Chief Complaint: Abdominal Pain <JUAN Ashley - Last Filed: 12/23/22 12:16> Stated Complaint: abd pain <JUAN Ashley - Last Filed: 12/23/22 12:16> Time Seen by Provider: 12/23/22 19:06 <JUAN Ashley - Last Filed: 12/23/22 12:16> Source: patient <Brenda Marie MD - Last Filed: 12/23/22 21:33> Mode of arrival: ambulatory <Brenda Marie MD - Last Filed: 12/23/22 21:33> Limitations: no limitations <Brenda Marie MD - Last Filed: 12/23/22 21:33> History of Present Illness HPI narrative: Patient comes to the emergency room complaining of left lower quadrant pain starting this morning. Patient has history of diverticulitis. Patient states that the pain that she is feeling is familiar and is the same than 2 months ago when she was diagnosed with diverticulitis. Patient denies vomiting or diarrhea, patient complaining of nausea and left lower quadrant pain. No flank pain. Patient admits to have chronic constipation <Brenda Marie MD - Last Filed: 12/23/22 21:33> Related Data Home Medications: Home Medications Medication Instructions Recorded Confirmed levothyroxine 75 mcg tablet 75 mcg PO MOTUWETHFRSA@0600 02/07/22 05/18/22 (Levoxyl) acetaminophen 500 mg capsule 500 mg PO Q6H PRN Pain 09/14/22 cholecalciferol (vitamin D3) 25 25 mcg PO DAILY 09/14/22 mcg (1,000 unit) capsule (Vitamin D3) lisinopril 10 mg tablet 10 mg PO DAILY 09/14/22 Previous Rx's Medication Instructions Recorded hydrocortisone 2.5 % topical cream 1 appl [place] BID-QID PRN hemorrhoids 09/14/22 with perineal applicator #30 grams (Proctosol HC) levofloxacin 500 mg tablet 500 mg PO DAILY #9 tabs 11/08/22 bisacodyl 5 mg tablet,delayed 10 mg PO BEDTIME #180 tabs 11/17/22 release (Dulcolax (bisacodyl)) docusate sodium 100 mg capsule 100 mg PO BEDTIME #90 caps 12/13/22 <JUAN Ashley - Last Filed: 12/23/22 12:16> Allergies/Adverse Reactions: Allergies Allergy/AdvReac Type Severity Reaction Status Date / Time magnesium hydroxide Allergy Mild Rash Verified 12/13/22 13:52 [From Milk of Magnesia] <JUAN Ashley - Last Filed: 12/23/22 12:16> Review of Systems Review of Systems Constitutional : No Weight loss, No Fever, No Chills, No Night Sweats, No Fatigue, No Malaise ENT/Mouth : No Hearing loss, No Ear Pain, No Nasal Congestion, No Sinus Pain, No Hoarseness, No sore throat, No Rhinorrhea, No Swallowing Difficulty Eyes: No Eye Pain, No Swelling, No Redness, No Foreign Body, No Discharge, No Vision Changes Cardiovascular : No Chest Pain, No SOB, No Dyspnea on Exertion, No Orthopnea, No Edema, No Palpitations Respiratory : No Cough, No Sputum, No Wheezing, No Smoke Exposure, No Dyspnea Gastrointestinal : Complaining of Nausea, No Vomiting, No Diarrhea, No Cons tipation, complaining of left lower quadrant pain, denies hematochezia Genitourinary : no irregular bleeding, No Dysuria, No Urinary Frequency, No Hematuria, No Urinary Incontinence, No Urgency, No Flank Pain, No Urinary Flow Changes, No Hesitancy Musculoskeletal : No joint pain, No Myalgias, No Joint Swelling Skin : No Skin Lesions, No rash Neuro : No Weakness, No Numbness, No Paresthesias, No Loss of Consciousness, No Dizziness, No Headache Psych : No Anxiety/Panic, No Depression, No SI/HI/AH/VH, No Social Issues, Heme/Lymph: No Bruising, No Bleeding,No Lymphadenopathy Endocrine : No Polyuria, No Polydipsia, No Temperature Intolerance <Brenda Marie MD - Last Filed: 12/23/22 21:33> [facility] Past Medical History Medical History: Medical History Endometrial hyperplasia GERD (gastroesophageal reflux disease) Heartburn Hemorrhoids with complication Hypothyroidism Kidney stone Skin lesion of back Vitamin D deficiency <JUAN Ashley - Last Filed: 12/23/22 12:16> Surgical History: Surgical History History of surgery Hx of colonoscopy Hx of esophagogastroduodenoscopy Hx of unilateral oophorectomy Tubal ligation status <JUAN Ashley - Last Filed: 12/23/22 12:16> Family History Family History: Family History Father Hypertension Respiratory failure Mother Pancreatic cancer <JUAN Ashley - Last Filed: 12/23/22 12:16> Social History Social History: Social History Alcohol intake: never Patient Tobacco Use Status: Never used Tobacco Advance Directives: No service: No Current occupational status: unemployed <JUAN Ashley - Last Filed: 12/23/22 12:16> Physical Exam ED Vital Signs: Vital Signs - 24 hr 12/23/22 12:12 12/23/22 16:39 12/23/22 18:35 Temperature 96.6 F L 98.8 F 99.5 F Pulse Rate 96 102 H 94 Respiratory Rate 17 18 16 Blood Pressure 139/92 H 139/95 H 130/80 Pulse Oximetry 98 98 99 Oxygen Delivery Method Room Air Room Air Room Air 12/23/22 20:00 Temperature 99.5 F Pulse Rate 94 Respiratory Rate 16 Blood Pressure 128/86 Pulse Oximetry 97 Oxygen Delivery Method Room Air BMI result Body Mass Index 25.9 <JUAN Ashley - Last Filed: 12/23/22 12:16> Vital Signs - 24 hr 12/23/22 12:12 12/23/22 16:39 12/23/22 18:35 Temperature 96.6 F L 98.8 F 99.5 F Pulse Rate 96 102 H 94 Respiratory Rate 17 18 16 Blood Pressure 139/92 H 139/95 H 130/80 Pulse Oximetry 98 98 99 Oxygen Delivery Method Room Air Room Air Room Air 12/23/22 20:00 Temperature 99.5 F Pulse Rate 94 Respiratory Rate 16 Blood Pressure 128/86 Pulse Oximetry 97 Oxygen Delivery Method Room Air BMI result Body Mass Index 25.9 <Brenda Marie MD - Last Filed: 12/23/22 21:33> Const Other: Appearance: Alert. Oriented X3. No acute distress but looks u ncomfortable Eyes: Pupils equal, round and reactive to light. ENT: Pharynx normal. Neck: Normal inspection. Neck supple. No lymph nodes noted. No crepitus CVS: Normal heart rate and rhythm. Pulses normal. Normal S1 and S2 Respiratory: No respiratory distress. Breath sounds normal. No Wheezing. No rales Abdomen: Soft, tenderness to palpation in the left lower quadrant, no rebound, no guarding Skin: Skin warm and dry. Normal skin color. Normal skin turgor. Extremities: No lower extremity edema. No Lacerations. No Rash Neuro: Oriented X 3. No motor deficit. No sensory deficit. Moving all extremities. No slurred speech. CN 2 through 12 grossly intact Psych: calm, cooperative, normal affect <Brenda Marie MD - Last Filed: 12/23/22 21:33> Course Course Course Narrative: This is an RME: Additional HPI, ROS, PE not included below will be deferred to primary provider. This is a 52 year old female hx of diverticulitis presents w/ LLQ pain severe in nature. Feels like her previous episodes of diverticulitis. Has been tollerating some PO. Loose stools also. PE w/ LLQ tenderness on exam. Plan- labs, UA, imaging ordered. <JUAN Ashley - Last Filed: 12/23/22 12:16> Medical Decision Making Medical Decision Making MDM Narrative: -patient's white blood cell count within normal limits -CT scan consistent with diverticulitis -patient received IV metronidazole, levofloxacin, morphine, IV fluids. -patient's vitals within normal limits, no fever, no episodes of hypotensio, sepsis is not suspected -patient continues having abdominal pain. Patient states that the last time that she had diverticulitis in October, she left home, admission was offered but patient declined. Patient states that she did not do well at home, took her several days to eventually get better but she had a very rough time. Patient states that she feels worse than the last time and is requesting if we could possibly admit her considering that she did not do well last time at home <Brenda Marie MD - Last Filed: 12/23/22 21:33> Differential Diagnosis Differential Diagnoses: The differential diagnosis associated with the presentation includes (Left lower quadrant pain, small-bowel obstruction) <Brenda Marie MD - Last Filed: 12/23/22 21:33> Admission/Observation Consideration of admission/observation: Escalation of care including admission/observation considered <Brenda Marie MD - Last Filed: 12/23/22 21:33> Consult Healthcare Provider Management of the patient was discussed with: Hospitalist (I discussed the patient with Dr. Rocha, patient being admitted) <Brenda Marie MD - Last Filed: 12/23/22 21:33> Lab Data MDM Lab Attestation statement: I reviewed the patient's lab results. <Brenda Marie MD - Last Filed: 12/23/22 21:33> Result Diagrams: 12/23/22 12:24 12/23/22 12:24 <JUAN Ashley - Last Filed: 12/23/22 12:16> Labs: Lab Results 12/23/22 12/23/22 12/23/22 Range/Units 12:20 12:24 12:24 WBC 10.6 (4.8-10.8) X10*3/uL RBC 4.63 (4.20-5.50) X10*6/uL Hgb 13.0 (12.0-16.0) g/dl Hct 39.7 (37.0-47.0) % MCV 85.7 (80.0-98.0) fL MCH 28.1 (27.0-33.0) pg MCHC 32.7 (31.0-35.0) g/dl RDW 13.2 (11.0-16.0) % Plt Count 163 (160-400) X10*3/uL MPV 13.3 H (9.4-12.3) fL Immature Gran % (Auto) 0.4 (0.0-0.4) % Neut % (Auto) 71.6 (45-73) % Lymph % (Auto) 19.1 L (20-40) % Bureau % (Auto) 7.6 (2-11) % Eos % (Auto) 0.6 (0-4) % Baso % (Auto) 0.7 (0-2) % Lymph # (Auto) 2.0 (1.2-4.9) X10*3/uL Bureau # (Auto) 0.8 (0.1-1.2) X10*3/uL Eos # (Auto) 0.1 (0.0-0.4) X10*3/uL Baso # (Auto) 0.1 (0.0-0.2) X10*3/uL Abs Immat Gran (auto) 0.04 H (0.00-0.03) X10*3/uL Absolute Neuts (auto) 7.6 (2.0-8.3) x10*3/uL Absolute Nucleated RBC 0.000 (0.0-0.012) X10*3/uL Nucleated RBC % (auto) 0.0 (0.0-0.2) /100WBC Sodium 141 (135-145) mmol/L Potassium 4.1 (3.3-5.1) mmol/L Chloride 103 (96-108) mmol/L Carbon Dioxide 29 (22-29) mmol/L Anion Gap 13 (12-20) BUN 10 (9-16) mg/dL Creatinine 0.81 (0.5-1.4) mg/dL Estim Creat Clear Calc 67.1 Estimated GFR > 60 Random Glucose 92 (60-115) mg/dL Calcium 10.2 (8.4-10.2) mg/dL Magnesium 2.2 (1.6-2.6) mg/dL Total Bilirubin 0.9 (0.0-1.0) mg/dL AST 24 (5-31) U/L ALT 27 (0-31) U/L Alkaline Phosphatase 111 (39-117) U/L Total Protein 7.6 (6.5-8.0) g/dL Albumin 4.7 (3.5-5.0) g/dL Lipase 35 (8-78) U/L Beta HCG, Quant < 2 mIU/mL Urine Color Urine Appearance Urine pH (5.0-9.0) Ur Specific [place] (1.005-1.025) Urine Protein (Neg-Trace) mg/dL Urine Glucose (UA) (Negative) mg/dL Urine Ketones (Negative) mg/dL Urine Blood (Negative) Urine Nitrite (Negative) Ur Leukocyte Esterase (Negative) Urine RBC (0-2) /HPF Urine WBC (0-5) /HPF Ur Squamous Epith Cells (0-2) /HPF Urine Bacteria (None Seen) Hyaline Casts (0-2) /LPF COVID-19 (NATHEN) Negative (Negative) COVID-19 Clin Com See Note 12/23/22 Range/Units 12:30 WBC (4.8-10.8) X10*3/uL RBC (4.20-5.50) X10*6/uL Hgb (12.0-16.0) g/dl Hct (37.0-47.0) % MCV (80.0-98.0) fL MCH (27.0-33.0) pg MCHC (31.0-35.0) g/dl RDW (11.0-16.0) % Plt Count (160-400) X10*3/uL MPV (9.4-12.3) fL Immature Gran % (Auto) (0.0-0.4) % Neut % (Auto) (45-73) % Lymph % (Auto) (20-40) % Bureau % (Auto) (2-11) % Eos % (Auto) (0-4) % Baso % (Auto) (0-2) % Lymph # (Auto) (1.2-4.9) X10*3/uL Bureau # (Auto) (0.1-1.2) X10*3/uL Eos # (Auto) (0.0-0.4) X10*3/uL Baso # (Auto) (0.0-0.2) X10*3/uL Abs Immat Gran (auto) (0.00-0.03) X10*3/uL Absolute Neuts (auto) (2.0-8.3) x10*3/uL Absolute Nucleated RBC (0.0-0.012) X10*3/uL Nucleated RBC % (auto) (0.0-0.2) /100WBC Sodium (135-145) mmol/L Potassium (3.3-5.1) mmol/L Chloride (96-108) mmol/L Carbon Dioxide (22-29) mmol/L Anion Gap (12-20) BUN (9-16) mg/dL Creatinine (0.5-1.4) mg/dL Estim Creat Clear Calc Estimated GFR Random Glucose (60-115) mg/dL Calcium (8.4-10.2) mg/dL Magnesium (1.6-2.6) mg/dL Total Bilirubin (0.0-1.0) mg/dL AST (5-31) U/L ALT (0-31) U/L Alkaline Phosphatase (39-117) U/L Total Protein (6.5-8.0) g/dL Albumin (3.5-5.0) g/dL Lipase (8-78) U/L Beta HCG, Quant mIU/mL Urine Color Yellow Urine Appearance Clear Urine pH 6.5 (5.0-9.0) Ur Specific [place] <= 1.005 (1.005-1.025) Urine Protein Negative (Neg-Trace) mg/dL Urine Glucose (UA) Negative (Negative) mg/dL Urine Ketones Negative (Negative) mg/dL Urine Blood Negative (Negative) Urine Nitrite Negative (Negative) Ur Leukocyte Esterase Trace H (Negative) Urine RBC 0-2 (0-2) /HPF Urine WBC 0-5 (0-5) /HPF Ur Squamous Epith Cells 0-2 (0-2) /HPF Urine Bacteria None Seen (None Seen) Hyaline Casts 0-2 (0-2) /LPF COVID-19 (NATHEN) (Negative) COVID-19 Clin Com <JUAN Ashley - Last Filed: 12/23/22 12:16> Lab Results 12/23/22 12/23/22 12/23/22 Range/Units 12:20 12:24 12:24 WBC 10.6 (4.8-10.8) X10*3/uL RBC 4.63 (4.20-5.50) X10*6/uL Hgb 13.0 (12.0-16.0) g/dl Hct 39.7 (37.0-47.0) % MCV 85.7 (80.0-98.0) fL MCH 28.1 (27.0-33.0) pg MCHC 32.7 (31.0-35.0) g/dl RDW 13.2 (11.0-16.0) % Plt Count 163 (160-400) X10*3/uL MPV 13.3 H (9.4-12.3) fL Immature Gran % (Auto) 0.4 (0.0-0.4) % Neut % (Auto) 71.6 (45-73) % Lymph % (Auto) 19.1 L (20-40) % Bureau % (Auto) 7.6 (2-11) % Eos % (Auto) 0.6 (0-4) % Baso % (Auto) 0.7 (0-2) % Lymph # (Auto) 2.0 (1.2-4.9) X10*3/uL Bureau # (Auto) 0.8 (0.1-1.2) X10*3/uL Eos # (Auto) 0.1 (0.0-0.4) X10*3/uL Baso # (Auto) 0.1 (0.0-0.2) X10*3/uL Abs Immat Gran (auto) 0.04 H (0.00-0.03) X10*3/uL Absolute Neuts (auto) 7.6 (2.0-8.3) x10*3/uL Absolute Nucleated RBC 0.000 (0.0-0.012) X10*3/uL Nucleated RBC % (auto) 0.0 (0.0-0.2) /100WBC Sodium 141 (135-145) mmol/L Potassium 4.1 (3.3-5.1) mmol/L Chloride 103 (96-108) mmol/L Carbon Dioxide 29 (22-29) mmol/L Anion Gap 13 (12-20) BUN 10 (9-16) mg/dL Creatinine 0.81 (0.5-1.4) mg/dL Estim Creat Clear Calc 67.1 Estimated GFR > 60 Random Glucose 92 (60-115) mg/dL Calcium 10.2 (8.4-10.2) mg/dL Magnesium 2.2 (1.6-2.6) mg/dL Total Bilirubin 0.9 (0.0-1.0) mg/dL AST 24 (5-31) U/L ALT 27 (0-31) U/L Alkaline Phosphatase 111 (39-117) U/L Total Protein 7.6 (6.5-8.0) g/dL Albumin 4.7 (3.5-5.0) g/dL Lipase 35 (8-78) U/L Beta HCG, Quant < 2 mIU/mL Urine Color Urine Appearance Urine pH (5.0-9.0) Ur Specific [place] (1.005-1.025) Urine Protein (Neg-Trace) mg/dL Urine Glucose (UA) (Negative) mg/dL Urine Ketones (Negative) mg/dL Urine Blood (Negative) Urine Nitrite (Negative) Ur Leukocyte Esterase (Negative) Urine RBC (0-2) /HPF Urine WBC (0-5) /HPF Ur Squamous Epith Cells (0-2) /HPF Urine Bacteria (None Seen) Hyaline Casts (0-2) /LPF COVID-19 (NATHEN) Negative (Negative) COVID-19 Clin Com See Note 12/23/22 Range/Units 12:30 WBC (4.8-10.8) X10*3/uL RBC (4.20-5.50) X10*6/uL Hgb (12.0-16.0) g/dl Hct (37.0-47.0) % MCV (80.0-98.0) fL MCH (27.0-33.0) pg MCHC (31.0-35.0) g/dl RDW (11.0-16.0) % Plt Count (160-400) X10*3/uL MPV (9.4-12.3) fL Immature Gran % (Auto) (0.0-0.4) % Neut % (Auto) (45-73) % Lymph % (Auto) (20-40) % Bureau % (Auto) (2-11) % Eos % (Auto) (0-4) % Baso % (Auto) (0-2) % Lymph # (Auto) (1.2-4.9) X10*3/uL Bureau # (Auto) (0.1-1.2) X10*3/uL Eos # (Auto) (0.0-0.4) X10*3/uL Baso # (Auto) (0.0-0.2) X10*3/uL Abs Immat Gran (auto) (0.00-0.03) X10*3/uL Absolute Neuts (auto) (2.0-8.3) x10*3/uL Absolute Nucleated RBC (0.0-0.012) X10*3/uL Nucleated RBC % (auto) (0.0-0.2) /100WBC Sodium (135-145) mmol/L Potassium (3.3-5.1) mmol/L Chloride (96-108) mmol/L Carbon Dioxide (22-29) mmol/L Anion Gap (12-20) BUN (9-16) mg/dL Creatinine (0.5-1.4) mg/dL Estim Creat Clear Calc Estimated GFR Random Glucose (60-115) mg/dL Calcium (8.4-10.2) mg/dL Magnesium (1.6-2.6) mg/dL Total Bilirubin (0.0-1.0) mg/dL AST (5-31) U/L ALT (0-31) U/L Alkaline Phosphatase (39-117) U/L Total Protein (6.5-8.0) g/dL Albumin (3.5-5.0) g/dL Lipase (8-78) U/L Beta HCG, Quant mIU/mL Urine Color Yellow Urine Appearance Clear Urine pH 6.5 (5.0-9.0) Ur Specific [place] <= 1.005 (1.005-1.025) Urine Protein Negative (Neg-Trace) mg/dL Urine Glucose (UA) Negative (Negative) mg/dL Urine Ketones Negative (Negative) mg/dL Urine Blood Negative (Negative) Urine Nitrite Negative (Negative) Ur Leukocyte Esterase Trace H (Negative) Urine RBC 0-2 (0-2) /HPF Urine WBC 0-5 (0-5) /HPF Ur Squamous Epith Cells 0-2 (0-2) /HPF Urine Bacteria None Seen (None Seen) Hyaline Casts 0-2 (0-2) /LPF COVID-19 (NATHEN) (Negative) COVID-19 Clin Com <Brenda Marie MD - Last Filed: 12/23/22 21:33> Independent Interpretation I performed an independent interpretation of an: CT Scan <Brenda Marie MD - Last Filed: 12/23/22 21:33> Radiology Impression Discussion of test interpretation with radiology: I have reviewed the radiologist's reading. <Brenda Marie MD - Last F iled: 12/23/22 21:33> Radiologist Impression: FINDINGS: LUNG BASES: Unremarkable.? ABDOMINAL AND PELVIC WALL:? Diastases of the rectus abdominis musculature with a tiny superimposed fat-containing umbilical hernia.? LIVER AND BILIARY TREE: Hypoattenuating hepatic parenchyma compatible with hepatic steatosis.? GALLBLADDER: Unremarkable.? PANCREAS: Unremarkable.? SPLEEN: Unremarkable.? ADRENAL GLANDS: Unremarkable.? KIDNEYS AND URETERS: Mild right hydronephrosis with relative decompression of the ureter at the ureterovesicular junction which may reflect a degree of underlying UPJ stenosis.? GASTROINTESTINAL TRACT: Colonic diverticulosis with pericolonic inflammatory fat stranding involving the junction of the descending and sigmoid colon with associated wall thickening suspicious for diverticulitis. No organized fluid collection to suggest abscess or extraluminal air to suggest perforation.? Normal appendix. VASCULAR: Unremarkable. LYMPH NODES/PERITONEUM: No lymphadenopathy. FREE FLUID: None. BLADDER: Unremarkable.? PELVIC VISCERA: Unremarkable. OSSEOUS STRUCTURES: Unremarkable.? CT/CT abdomen pelvis w IV con IMPRESSION: ? Colonic diverticulosis with pericolonic inflammatory fat stranding involving the junction of the descending and sigmoid colon with associated wall thickening compatible with diverticulitis. No organized fluid collection to suggest abscess or extraluminal air to suggest perforation.? ? Mild right hydronephrosis with relative decompression of the ureter at the ureterovesicular junction which may reflect a degree of underlying UPJ stenosis.? ? Hypoattenuating hepatic parenchyma compatible with hepatic steatosis.? <Brenda Marie MD - Last Filed: 12/23/22 21:33> Medications Administered Discontinued Medications Generic Name Dose Route Start Last Admin Trade Name Freq PRN Reason Stop Dose Admin Iohexol 100 ml 12/23/22 19:36 12/23/22 19:37 Iohexol 350 Mg/Ml 100 Ml Infus..Btl IV 12/23/22 19:37 85 ml ONCE ONE Administration <JUAN Ashley - Last Filed: 12/23/22 12:16> Medications Administered Discontinued Medications Generic Name Dose Route Start Last Admin Trade Name Freq PRN Reason Stop Dose Admin Iohexol 100 ml 12/23/22 19:36 12/23/22 19:37 Iohexol 350 Mg/Ml 100 Ml Infus..Btl IV 12/23/22 19:37 85 ml ONCE ONE Administration <Brenda Marie MD - Last Filed: 12/23/22 21:33> Critical Care Time Critical Care Time Critical Care Time: Yes <Brenda Marie MD - Last Filed: 12/23/22 21:33> Total Critical Care Time: 45 <Brenda Marie MD - Last Filed: 12/23/22 21:33> Attestation: I have personally provided critical care time. Time includes review of lab data, radiology results, discussion with consultants, and monitoring for potential decompensation. Intervention performed as documented. <Brenda Marie MD - Last Filed: 12/23/22 21:33> Discharge Plan Discharge Clinical Impression: Diverticulitis <JUAN Ashley - Last Filed: 12/23/22 12:16> Patient Disposition: Admitted As Inpatient <JUAN Ashley - Last Filed: 12/23/22 12:16> Instructions: Diverticulitis (ED) <JUAN Ashley - Last Filed: 12/23/22 12:16> Prescriptions: No Action levothyroxine [Levoxyl] 75 mcg tablet 75 mcg PO MOTUWETHFRSA@0600 Rx Instructions: 75 mcg PO daily Tuesday- Tuesday; levofloxacin 500 mg tablet 500 mg PO DAILY Qty: 9 0RF bisacodyl [Dulcolax (bisacodyl)] 5 mg tablet,delayed release (DR/EC) 10 mg PO BEDTIME Qty: 180 4RF docusate sodium 100 mg capsule 100 mg PO BEDTIME Qty: 90 3RF cholecalciferol (vitamin D3) [Vitamin D3] 25 mcg (1,000 unit) capsule 25 mcg PO DAILY lisinopril 10 mg tablet 10 mg PO DAILY acetaminophen 500 mg capsule 500 mg PO Q6H PRN (Reason: Pain) hydrocortisone [Proctosol HC] 2.5 % cream with perineal applicator 1 appl [place] BID-QID PRN (Reason: hemorrhoids) Qty: 30 2RF <JUAN Ashley - Last Filed: 12/23/22 12:16>
[2022-12-23 12:28] LABS: MANUAL DIFF FLAG NO
[2022-12-23 12:40] LABS: Basophils Absolute Auto 0.1 X10*3/uL (0.0-0.2); Basophils Percent Auto 0.7 % (0-2); Eosinophils Absolute Auto 0.1 X10*3/uL (0.0-0.4); Eosinophils Percent Auto 0.6 % (0-4); Hematocrit 39.7 % (37.0-47.0); Imm Gran Abs Auto 0.04 X10*3/uL (0.00-0.03); Imm Gran Pct Auto 0.4 % (0.0-0.4); Lymphocytes Percent Auto 19.1 % (20-40); Mean Corpuscular HGB Conc 32.7 g/dl (31.0-35.0); Mean Corpuscular Hemoglobin 28.1 pg (27.0-33.0); Mean Corpuscular Volume 85.7 fL (80.0-98.0); Mean Platelet Volume 13.3 fL (9.4-12.3); Monocytes Absolute Auto 0.8 X10*3/uL (0.1-1.2); Monocytes Percent Auto 7.6 % (2-11); Neutrophils Absolute Auto 7.6 x10*3/uL (2.0-8.3); Neutrophils Percent Auto 71.6 % (45-73); Platelet Count 163 X10*3/uL (160-400); Red Blood Count 4.63 X10*6/uL (4.20-5.50); Red Cell Distribution Width 13.2 % (11.0-16.0); White Blood Count 10.6 X10*3/uL (4.8-10.8)
[2022-12-23 12:54] LABS: Appearance Urine Clear; Color Urine Yellow; Glucose Urine UA Negative (Negative); Leukocyte Esterase Urine Trace (Negative); Nitrite Urine Negative (Negative); PH 6.5 (5.0-9.0); Specific Gravity - Urine <= 1.005 (1.005-1.025); UMIC TRIGGER UACC YES; Urine Blood Negative (Negative); Urine Ketones Negative (Negative); Urine Protein Negative (Neg-Trace)
[2022-12-23 12:56] LABS: Bacteria Urine None Seen (None Seen); Hyaline Casts Urine 0-2 /LPF (0-2); RBC Urine 0-2 /HPF (0-2); Squamous Epithelial Cell Urine 0-2 /HPF (0-2); WBC Urine 0-5 /HPF (0-5)
[2022-12-23 12:58] LABS: COVID-19 Test Negative (Negative); IDNOW Serial# BCCEAD1C
[2022-12-23 12:59] LABS: Alanine Aminotransferase 27 U/L (0-31); Albumin Level 4.7 g/dL (3.5-5.0); Alkaline Phosphatase 111 U/L (39-117); Anion Gap 13 (12-20); Aspartate Amino Transferase 24 U/L (5-31); Bilirubin Total 0.9 mg/dL (0.0-1.0); Blood Urea Nitrogen 10 mg/dL (9-16); Calcium 10.2 mg/dL (8.4-10.2); Carbon Dioxide 29 mmol/L (22-29); Chloride 103 mmol/L (96-108); Creatinine Clr Calc Pharmacy 67.1; Estimated Glomerular Filt Rate > 60; Glucose Random 92 mg/dL (60-115); Lipase 35 U/L (8-78); Magnesium 2.2 mg/dL (1.6-2.6); Potassium 4.1 mmol/L (3.3-5.1); Sodium 141 mmol/L (135-145); Total Protein 7.6 g/dL (6.5-8.0)
[2022-12-23 13:46] LABS: HCG Quantitative < 2 mIU/mL
[2022-12-23 16:39] VITALS: BP 139/95; PULSE 102; RESP 18; TEMP 37.1; O2SAT 98
[2022-12-23 18:35] VITALS: BP 130/80; PULSE 94; RESP 16; TEMP 37.5; O2SAT 99
--- NOTE | 2022-12-23 18:36 | MHC.EDTECH ---
this pct just assumed care of pt ,vitals sign taken ,warm blanket given .
[2022-12-23] MEDS: iohexoL 350 MG/ML 100 ML INFUS..BTL IV (19:37)
[2022-12-23 20:00] VITALS: BP 128/86; PULSE 94; RESP 16; TEMP 37.5; O2SAT 97
[2022-12-23] MEDS: ondansetron HCL 4 MG/2 ML VIAL IVPUSH (21:32)
[2022-12-23] MEDS: 0.9 % Sodium Chloride 1,000 ML 999 ML IVCONT (21:32)
[2022-12-23] MEDS: metroNIDAZOLE/NS 500 MG/100 ML PIGGYBACK 100 MG IV (21:32)
[2022-12-23 21:49] VITALS: BP 119/79; PULSE 98; RESP 16; TEMP 37.4; O2SAT 97
[2022-12-23] MEDS: levoFLOXacin/D5W 500 MG/100 ML PIGGYBACK 100 MG IV (22:15)
[2022-12-23 23:45] VITALS: BP 118/79; PULSE 83; RESP 16; TEMP 37.2; O2SAT 97
[2022-12-24] VITALS (7 sets, daily range): BP systolic 118–140; BP diastolic 62–80; PULSE 77–102; RESP 16–20; TEMP 36–37; O2SAT 96–98; BMI 25.8
--- NOTE | 2022-12-24 | ECG_ITS ---
Test Reason : ABD PAIN Blood Pressure : / mmHG Vent. Rate : 109 BPM Atrial Rate : 109 BPM P-R Int : 154 ms QRS Dur : 094 ms QT Int : 340 ms P-R-T Axes : 049 009 -44 degrees QTc Int : 457 ms Sinus tachycardia Incomplete right bundle branch block Nonspecific ST and T wave abnormality Abnormal ECG When compared with ECG of 25-JUL-2021 18:07, No significant change was found Referred By: Geoffrey Rocha Electronically Signed By:ZANE COURTNEY MD
--- NOTE | 2022-12-24 00:26 | PM.IMHP ---
History of Present Illness Date of Service: 12/24/22 Chief Complaint: abd pain South Korean-speaking only, spanish interpreter used to help with history. 52-year-old female with past medical history of hypothyroidism, chronic constipation, hypertension, presents to the hospital with complaints of abdominal pain. Patient reports left lower quadrant pain that started today, constant, 10/10, radiating across the abdomen to the right side, worse with eating, improved after receiving IV morphine. Patient reports history of diverticulitis in the past, reports tried p.o. antibiotics but was very difficult to recover from. Reports nausea vomiting, nonbloody diarrhea. Denies any fever chills, reports no chest pain, no shortness of breath, does endorse urinary frequency, no dysuria or urgency. No lower extremity edema. All other review of system negative Will to the ED patient hemodynamically stable with tachycardia, and low temp 96 Labs are significant for WBC count of 10.6, labs otherwise unremarkable Urine is positive for leukocyte esterase and some WBC Abdomen pelvic CT shows colonic diverticulosis with pericolonic inflammatory fat stranding involving the junction of the descending and sigmoid colon with associated wall thickening compatible with diverticulitis. No organized fluid collection or perforation. Mild right hydronephrosis with a relative decompression of the ureter at the ureteral vascular junction suggesting UPJ stenosis. Review of Systems Review of Systems: Yes all other systems are reviewed and are negative REPLACED BY [facility] Medical History Endometrial hyperplasia GERD (gastroesophageal reflux disease) Heartburn Hemorrhoids with complication Hypothyroidism Kidney stone Skin lesion of back Vitamin D deficiency Family History Father Hypertension Respiratory failure Mother Pancreatic cancer Surgical History History of surgery Hx of colonoscopy Hx of esophagogastroduodenoscopy Hx of unilateral oophorectomy Tubal ligation status Social History Alcohol intake: never Patient Tobacco Use Status: Never used Tobacco Smoked in Last 30 Days: No Second Hand Smoke Exposure: No Advance Directives: No service: No Current occupational status: unemployed Meds Allergies Allergy/AdvReac Type Severity Reaction Status Date / Time magnesium hydroxide Allergy Mild Rash Verified 12/13/22 13:52 [From Milk of Magnesia] Home Medications Medication Instructions Recorded Confirmed Last Taken Type lisinopril 10 mg tablet 10 mg PO DAILY 09/14/22 12/23/22 Unknown History levothyroxine 75 mcg tablet 1 tab PO DAILY 12/23/22 12/23/22 Unknown History Physical Exam Vital Signs and Narrative: Vital Signs: Last Vital Signs Temp 98.9 F 12/23/22 23:45 Pulse 83 12/23/22 23:45 Resp 16 12/23/22 23:45 BP 118/79 12/23/22 23:45 Pulse Ox 97 12/23/22 23:45 O2 Del Method 12/23/22 23:45 BMI result Body Mass Index 25.9 Const: General: cooperative and no acute distress Orientation/consciousness: patient oriented x3 Eyes: General: appearance normal, both eyes and all related structures Resp: Effort & Inspection: normal respiratory effort Auscultation: clear to auscultation bilaterally Cardio: Rate: regular rate Rhythm: regular rhythm GI: Other: Significant abdominal tenderness in the left lower quadrant Palpation (GI): Soft to palpation Auscultation: normal bowel sounds Skin: General skin exam: no rashes or lesions noted Neuro: General: patient oriented x3 Cognition (Neuro): normal cognition Extrem: General: Yes normal to inspection and Yes no pedal edema Results Labs 12/23/22 12:24 12/23/22 12:24 Labs: Laboratory Results - last 24 hr 12/23/22 12/23/22 12/23/22 12:20 12:24 12:24 MCV 85.7 MCH 28.1 MCHC 32.7 RDW 13.2 Plt Count 163 MPV 13.3 H Immature Gran % (Auto) 0.4 Neut % (Auto) 71.6 Lymph % (Auto) 19.1 L [place] % (Auto) 7.6 Eos % (Auto) 0.6 Baso % (Auto) 0.7 Lymph # (Auto) 2.0 [place] # (Auto) 0.8 Eos # (Auto) 0.1 Baso # (Auto) 0.1 Abs Immat Gran (auto) 0.04 H Absolute Neuts (auto) 7.6 Absolute Nucleated RBC 0.000 Nucleated RBC % (auto) 0.0 Anion Gap 13 Estim Creat Clear Calc 67.1 Estimated GFR > 60 Random Glucose 92 Calcium 10.2 Magnesium 2.2 Total Bilirubin 0.9 AST 24 ALT 27 Alkaline Phosphatase 111 Total Protein 7.6 Albumin 4.7 Lipase 35 Beta HCG, Quant < 2 Urine Color Urine Appearance Urine pH Ur Specific [place] Urine Protein Urine Glucose (UA) Urine Ketones Urine Blood Urine Nitrite Ur Leukocyte Esterase Urine RBC Urine WBC Ur Squamous Epith Cells Urine Bacteria Hyaline Casts COVID-19 (NATHEN) Negative COVID-19 Clin Com See Note 12/23/22 12:30 MCV MCH MCHC RDW Plt Count MPV Immature Gran % (Auto) Neut % (Auto) Lymph % (Auto) [place] % (Auto) Eos % (Auto) Baso % (Auto) Lymph # (Auto) [place] # (Auto) Eos # (Auto) Baso # (Auto) Abs Immat Gran (auto) Absolute Neuts (auto) Absolute Nucleated RBC Nucleated RBC % (auto) Anion Gap Estim Creat Clear Calc Estimated GFR Random Glucose Calcium Magnesium Total Bilirubin AST ALT Alkaline Phosphatase Total Protein Albumin Lipase Beta HCG, Quant Urine Color Yellow Urine Appearance Clear Urine pH 6.5 Ur Specific [place] <= 1.005 Urine Protein Negative Urine Glucose (UA) Negative Urine Ketones Negative Urine Blood Negative Urine Nitrite Negative Ur Leukocyte Esterase Trace H Urine RBC 0-2 Urine WBC 0-5 Ur Squamous Epith Cells 0-2 Urine Bacteria None Seen Hyaline Casts 0-2 COVID-19 (NATHEN) COVID-19 Clin Com Imaging Radiologist's Impressions: Impressions Abdomen/Pelvis CT 12/23/22 19:38 IMPRESSION: Colonic diverticulosis with pericolonic inflammatory fat stranding involving the junction of the descending and sigmoid colon with associated wall thickening compatible with diverticulitis. No organized fluid collection to suggest abscess or extraluminal air to suggest perforation. Mild right hydronephrosis with relative decompression of the ureter at the ureterovesicular junction which may reflect a degree of underlying UPJ stenosis. Hypoattenuating hepatic parenchyma compatible with hepatic steatosis. Assessment and Plan (1) Diverticulitis: Status: Acute (2) Stenosis of ureteropelvic junction (UPJ): Status: Acute Plan 52-year-old female with past medical history of chronic constipation, hypothyroidism, hypertension presents to the hospital with abdominal pain found to have diverticulitis # acute diverticulitis - no complication at this time, no perforation or fluid collection - does have tachycardia, as well as hypothermia - afebrile - associated with intractable abdominal pain, nausea vomiting and inability to tolerate p.o. - will treat with IV antibiotics - follow cultures - clear liquids # stenosis of UPJ- right - does report urinary frequency - UA is positive - no evidence of blocking stone - will treat with IV antibiotics - urology consulted for possible intervention # acute UTI - will treat with IV antibiotics - follow cultures # hypertension - continue lisinopril # hypothyroidism -continue levothyroxine DVT prophylaxis: Lovenox Given patient's acute diverticulitis, inability to tolerate p.o., and need for IV antibiotics, patient will require minimum 2 nights inpatient hospital stay for further management and monitoring Time Spent With Patient Time: Total time managing care of this patient today ____ minutes. Quality Stroke Does the patient have a stroke diagnosis?: No VTE Prior VTE?: No VTE Risk Level:: Medical - moderate - high VTE Device Contraindication: Treatment Not Indicated VTE Drug Contraindication: N/A - Med Ordered
[2022-12-24] MEDS: Enoxaparin Sodium 40 MG/0.4 ML SYRINGE SUBCUT (01:10)
[2022-12-24] MEDS: cefTRIAXone sodium 1 GM in 0.9 % Sodium Chloride 50 ML IV (01:10)
[2022-12-24] MEDS: diphenhydrAMINE HCL 50 MG/ML VIAL IVPUSH (01:32)
[2022-12-24] MEDS: Famotidine/PF 20 MG/2 ML VIAL IVPUSH (01:32)
[2022-12-24] MEDS: methylPREDNISolone Sod Succ 125 MG/2 ML VIAL IVPUSH (01:32)
[2022-12-24] MEDS: Lactated Ringers 1,000 ML 100 ML IVCONT ×3 (01:32→21:44)
--- NOTE | 2022-12-24 01:36 | PC.NURSE ---
Patient c/o itchy tongue, throat and ears, chest pressure 10/10. heart rate jumped to 130's, O2sat 99% Dr. Avalos notified ekg and meds ordered. Patient now feeling dizzy.
--- NOTE | 2022-12-24 02:04 | MHC.EDTECH ---
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
[2022-12-24 02:29] LABS: Troponin-I High Sensitivity < 3.5 ng/L (<3.5-17.0)
--- NOTE | 2022-12-24 02:36 | PC.NURSE ---
Patient denies any chest pain, sob, and dizziness, itchy throat, nose, and ears. tele: sinus rythym 80-90's. ? if it was reaction to Ceftriaxone. MD aware.
--- NOTE | 2022-12-24 02:59 | PC.NURSE ---
report received from Joanna brian
[2022-12-24] MEDS: metroNIDAZOLE 500 MG TABLET PO ×3 (05:41→21:43)
[2022-12-24 07:05] LABS: MANUAL DIFF FLAG NO
[2022-12-24 07:25] LABS: Basophils Percent Auto 0.3 % (0-2); Hematocrit 34.6 % (37.0-47.0); Hemoglobin 11.3 g/dl (12.0-16.0); Imm Gran Abs Auto 0.05 X10*3/uL (0.00-0.03); Imm Gran Pct Auto 0.6 % (0.0-0.4); Lymphocytes Absolute Auto 1.1 X10*3/uL (1.2-4.9); Lymphocytes Percent Auto 12.8 % (20-40); Mean Corpuscular HGB Conc 32.7 g/dl (31.0-35.0); Mean Corpuscular Hemoglobin 28.3 pg (27.0-33.0); Mean Corpuscular Volume 86.7 fL (80.0-98.0); Mean Platelet Volume 14.3 fL (9.4-12.3); Monocytes Absolute Auto 0.2 X10*3/uL (0.1-1.2); Monocytes Percent Auto 2.1 % (2-11); Neutrophils Absolute Auto 7.5 x10*3/uL (2.0-8.3); Neutrophils Percent Auto 84.2 % (45-73); Platelet Count 148 X10*3/uL (160-400); Red Blood Count 3.99 X10*6/uL (4.20-5.50); Red Cell Distribution Width 13.1 % (11.0-16.0); White Blood Count 8.9 X10*3/uL (4.8-10.8)
[2022-12-24 08:07] LABS: Anion Gap 15 (12-20); Blood Urea Nitrogen 10 mg/dL (9-16); Calcium 9.2 mg/dL (8.4-10.2); Carbon Dioxide 23 mmol/L (22-29); Chloride 105 mmol/L (96-108); Creatinine Clr Calc Pharmacy 64.7; Estimated Glomerular Filt Rate > 60; Glucose Random 140 mg/dL (60-115); Potassium 4.2 mmol/L (3.3-5.1); Sodium 139 mmol/L (135-145)
[2022-12-24] MEDS: lisinopriL 10 MG TABLET PO (08:56)
[2022-12-24] MEDS: Levothyroxine Sodium 75 MCG TABLET PO (08:56)
--- NOTE | 2022-12-24 11:06 | PM.EVENT ---
Event Note Date of Service: 12/24/22 Event Note: Pt seen and examined. She was admitted this morning with acute diverticulutis and seems better this morning, WBC normal, no fever, still withsome LLQ tenderness but overall better. Will advance to clear liquid diet, o/w A/P per admission from this morning . Time Spent With Patient Time: Total time managing care of this patient today ____ minutes.
--- NOTE | 2022-12-24 13:32 | P.CNUR_ITS ---
History of Present Illness Consult details Consult date: 12/24/22 Narrative: Maryann is a pleasant Urdu-speaking patient with a past medical history of hypothyroidism, chronic constipation, and hypertension who presented to the emergency room yesterday on 12/23 with reports of left lower quadrant pain. She has since been admitted and being treated for diverticulitis. She is being con sulted today by Urology for incidental findings of mild right hydronephrosis. Upon assessment of the patient today she is sitting up on the side of the bed. When asked she reports to be feeling and doing much better than yesterday but continues with left lower quadrant discomfort. In discussion with the patient today regarding her CT findings and symptoms she reports left lower abdominal pain and discomfort however reports pain to be much better than yesterday. When asked she denies flank pain, urinary urgency, urinary frequency, incontinence, hematuria, fever and or chills. BUN [address] from 01/06-- Mild right hydronephrosis with relative decompression of the ureter at the uret erovesicular junction which may reflect a degree of underlying UPJ stenosis. However CT from 11/04 showing bilateral nephrograms are symmetrical. These results were discussed with the patient. Discussed in office follow up s/p this hospitalization. No CVA tenderness bilaterally and again patient denies urinary issues as mentioned above. Review of Systems Constitutional: Constitutional: Reports as per HPI Eyes: Eyes: Reports no additional eye complaints Cardiovascular: Cardiovascular: Reports no additional cardiovascular complaints Respiratory: Respiratory: Reports no additional respiratory complaints Gastrointestinal: Gastrointestinal: Reports as per HPI Genitourinary: Genitourinary: Reports as per HPI Musculoskeletal: Musculoskeletal: Reports no additional musculoskeletal complaints Neurologic: Reports system reviewed and no additional complaints, except as documented Psychiatric: Psychiatric: Reports no additional psychiatric complaints Endocrine: Endocrine: Reports no additional endocrine complaints [facility] Past Medical History Medical History Endometrial hyperplasia GERD (gastroesophageal reflux disease) Heartburn Hemorrhoids with complication Hypothyroidism Kidney stone Skin lesion of back Vitamin D deficiency Family History Family History Father Hypertension Respiratory failure Mother Pancreatic cancer Surgical History Surgical History History of surgery Hx of colonoscopy Hx of esophagogastroduodenoscopy Hx of unilateral oophorectomy Tubal ligation status Social History Social History Alcohol intake: never Patient Tobacco Use Status: Never used Tobacco Smoked in Last 30 Days: No Second Hand Smoke Exposure: No Advance Directives: No service: No Current occupational status: employed Meds Allergies Allergy/AdvReac Type Severity Reaction Status Date / Time magnesium hydroxide Allergy Mild Rash Verified 12/13/22 13:52 [From Milk of Magnesia] Active Medications: Current Medications Acetaminophen (Acetaminophen 325 Mg Tablet) 650 mg PO Q6H PRN PRN Reason: Pain, Mild (Pain Scale 1-3) Enoxaparin Sodium (Enoxaparin Sodium 40 Mg/0.4 Ml Syringe) 40 mg SUBCUT Q24H [facility] Last Admin: 12/24/22 01:10 Dose: 40 mg Lactated Ringer's (Lr) 1,000 mls @ 100 mls/hr IVCONT .Q10H [facility] Last Admin: 12/24/22 01:32 Dose: 100 mls/hr Ceftriaxone Sodium 1 gm/ (Sodium Chloride) 50 mls @ 100 mls/hr IV Q24H [facility] Last Infusion: 12/24/22 02:24 Dose: Infused Levothyroxine Sodium (Levothyroxine Sodium 75 Mcg Tablet) 75 mcg PO DAILY [facility] Last Admin: 12/24/22 08:56 Dose: 75 mcg Lisinopril (Lisinopril 10 Mg Tablet) 10 mg PO DAILY [facility]; Protocol Last Admin: 12/24/22 08:56 Dose: 10 mg Metronidazole (Metronidazole 500 Mg Tablet) 500 mg PO Q8H [facility] Last Admin: 12/24/22 05:41 Dose: 500 mg Morphine Sulfate (Morphine Sulfate 4 Mg/Ml Cartridge) 4 mg IVPUSH Q4H PRN; Protocol PRN Reason: Pain, Severe (Pain Scale 7-10) Ondansetron HCl (Ondansetron Hcl 4 Mg/2 Ml Vial) 4 mg IVPUSH Q8H PRN PRN Reason: Nausea and Vomiting Sodium Chloride (0.9 % Sodium Chloride Flush 3 Ml Syringe) 3 ml IVFLUSH QSHIFT [facility] Last Admin: 12/24/22 08:57 Dose: Not Given Home Medications Medication Instructions Recorded Confirmed Last Taken Type lisinopril 10 mg tablet 10 mg PO DAILY 09/14/22 12/23/22 Unknown History levothyroxine 75 mcg tablet 1 tab PO DAILY 12/23/22 12/23/22 Unknown History Physical Exam Vital Signs: Vital Signs: Last Vital Signs Temp 97.7 F 12/24/22 12:00 Pulse 91 12/24/22 12:00 Resp 18 12/24/22 12:00 BP 121/69 12/24/22 12:00 Pulse Ox 97 12/24/22 12:00 O2 Del Method 12/24/22 12:00 BMI result Body Mass Index 25.8 Const: General: cooperative, comfortable, no acute distress, well developed, alert and awake Nutritional Appearance: average body habitus Orientation/consciousness: patient oriented x3 Limitations: no limitations HEENT: Head: Yes normal to inspection Ears: hearing grossly normal bi laterally Eyes: General: appearance normal, both eyes and all related structures Neck: Neck: Yes normal visual inspection and Yes trachea midline Chest: Chest palpation & inspection: normal inspection of the chest Resp: Effort & Inspection: normal respiratory effort and able to speak in complete sentences Cardio: Rate: regular rate GI: Inspection: Yes normal to inspection Palpation (GI): Soft to palpation and Tenderness to palpation present (GI) in the LLQ : General: Yes no CVA tenderness Back/Spine/Pelvis: Back: no CVA tenderness Skin: General skin exam: no rashes or lesions noted Neuro: General: patient oriented x3 Extrem: General: Yes normal to inspection Psych: Appearance: grossly normal Mental Status: mental status grossly normal Speech and movement: Normal speech and movement present and Clear speech present Affect: normal affect Attitude: cooperative Thought process: Normal thought process present Thought content: Normal thought content present Insight: Fair insight present (Psych) Judgement: Fair judgement present (Psych) Results Labs 12/24/22 05:57 12/24/22 05:57 Labs: Abnormal lab results 12/24/22 12/24/22 Range/Units 05:57 05:57 RBC 3.99 L (4.20-5.50) X10*6/uL Hgb 11.3 L (12.0-16.0) g/dl Hct 34.6 L (37.0-47.0) % Plt Count 148 L (160-400) X10*3/uL MPV 14.3 H (9.4-12.3) fL Immature Gran % (Auto) 0.6 H (0.0-0.4) % Neut % (Auto) 84.2 H (45-73) % Lymph % (Auto) 12.8 L (20-40) % Lymph # (Auto) 1.1 L (1.2-4.9) X10*3/uL Abs Immat Gran (auto) 0.05 H (0.00-0.03) X10*3/uL Random Glucose 140 H (60-115) mg/dL Short CBC 12/24/22 Range/Units 05:57 WBC 8.9 (4.8-10.8) X10*3/uL Hgb 11.3 L (12.0-16.0) g/dl Hct 34.6 L (37.0-47.0) % Plt Count 148 L (160-400) X10*3/uL BMP 12/24/22 05:57 Sodium 139 Potassium 4.2 Chloride 105 Carbon Dioxide 23 BUN 10 Creatinine 0.84 Calcium 9.2 D Urine 12/23/22 Range/Units 12:30 Urine Color Yellow Urine Appearance Clear Urine pH 6.5 (5.0-9.0) Ur Specific [place] <= 1.005 (1.005-1.025) Urine Protein Negative (Neg-Trace) mg/dL Urine Glucose (UA) Negative (Negative) mg/dL All other labs normal. Imaging Abdomen CT scan report/results: report reviewed Assessment and Plan (1) Stenosis of ureteropelvic junction (UPJ): Status: Acute Plan CT from 01/06--Incidental findings of mild right hydronephrosis with relative decompression of the ureter at the ureterovesicular junction which may reflect a degree of underlying UPJ stenosis. CT from 11/04--showing bilateral nephrograms are symmetrical Discussed in office Urology follow-up once discharged from the hospital BUN/CREAT; stable No CVA tenderness bilaterally. No changes to urinary system and patient denies any urinary concern at this time. No active urological concerns. Please reconsult if there are any changes. Follow up outpatient. Time Spent With Patient Time: Total time managing care of this patient today ____ minutes. Procedures Date of Service Date of Service: 12/24/22
--- NOTE | 2022-12-24 16:15 | MHC.CM.PN ---
PATIENT IS FULLY INDEPENDENT NO DME OR [facility] SERVICES. COVID VAX X 2 SHE IS HOPING TO RETURN HOME WITH NO SERVICES. D[place]TON 12/24 IN CHART
[2022-12-24] MEDS: Acetaminophen 325 MG TABLET 650 MG PO (22:32)
[2022-12-25] VITALS: BP 116/64; PULSE 93; RESP 16; TEMP 36.9; O2SAT 98
[2022-12-25] MEDS: 0.9 % Sodium Chloride Flush 3 ML SYRINGE IVFLUSH (01:20)
[2022-12-25] MEDS: levoFLOXacin/D5W 750 MG/150 ML PIGGYBACK 100 MG IV (01:20)
--- NOTE | 2022-12-25 01:26 | PC.NURSE ---
MD Martinez contacted via [employer] due to patient concerns of reaction to ceftriaxone in the ED in which she was given Benadryl IV. Patient c/o itching to face and tongue, swelling to tongue, felt throat was closing, SOB and cough in ED after administration. Patient requested ABX change and Levaquin was ordered. I added Ceftriaxone to patient's allergy list and notified patient. She has the ABX name written down for herself at the bedside. Also notified MD of patient c/o stiffness with right had grasp and mild numbness to fingers. Patient attributes this to IV access in AC and limiting motion all day to prevent IV beeping. No other symptoms and no other right sided symptoms. No swelling to right arm and IV was patent. I removed IV per MD request and placed a #22 in left hand. Machine Farmworker called to the room before and after contacting MD to translate concerns and educate patient.
[2022-12-25 03:46] VITALS: BP 108/56; PULSE 68; RESP 18; TEMP 36; O2SAT 99
[2022-12-25] MEDS: metroNIDAZOLE 500 MG TABLET PO (06:38)
--- NOTE | 2022-12-25 07:55 | PHA.MEDREC ---
Pharmacy Consult ? Medication Reconciliation Pharmacy has completed the medication reconciliation.
[2022-12-25 08:00] VITALS: BP 130/60; PULSE 74; RESP 16; TEMP 36.8; O2SAT 97
[2022-12-25] MEDS: lisinopriL 10 MG TABLET PO (08:53)
[2022-12-25] MEDS: Levothyroxine Sodium 75 MCG TABLET PO (08:53)
[2022-12-25] MEDS: Lactated Ringers 1,000 ML 100 ML IVCONT (09:56)
--- NOTE | 2022-12-25 10:57 | P.DS_ITS ---
DS: Providers Provider Date of Service: 12/25/22 Date of admission: 12/24/22 00:23 Primary care physician: Cedric Liao MD Consults: 12/24/22 06:11 Consult to Urology Routine Consulting Provider: Hari Sandoval Reason for consultation: UPJ stenosis? Has provider been notified: No DS: Diagnosis Discharge Diagnosis (1) Stenosis of ureteropelvic junction (UPJ): Status: Acute DS: Summary Hospital Course Hospital Course: Chief Complaint: abd pain New Zealander-speaking only, hourly sign language interpreter used to help with history.? 52-year-old female with past medical history of hypothyroidism, chronic constipation, hypertension, presents to the hospital with complaints of abdominal pain.? Patient reports left lower quadrant pain that started today, constant, 10/10, radiating across the abdomen to the right side, worse with eating, improved after receiving IV morphine.? Patient reports history of diverticulitis in the past, reports tried p.o. antibiotics but was very difficult to recover from.? Reports nausea vomiting, nonbloody diarrhea.? Denies any fever chills, reports no chest pain, no shortness of breath, does endorse urinary frequency, no dysuria or urgency.? No lower extremity edema.? All other review of system negative Will to the ED patient hemodynamically stable with tachycardia, and low temp 96 Labs are significant for WBC count of 10.6, labs otherwise unremarkable Urine is positive for leukocyte esterase and some WBC Abdomen pelvic CT shows colonic diverticulosis with pericolonic inflammatory fat stranding involving the junction of the descending and sigmoid colon with associated wall thickening compatible with diverticulitis.? No organized fluid collection or perforation. Mild right hydronephrosis with a relative decompression of the ureter at the ureteral vascular junction suggesting UPJ stenosis. Hospital course: She presented with abdominal pain and found to have acute diverticulitis, UTI, and kidney stone. # acute diverticulitis, uncomplicated. Treated with Levaquin with good effect, presently without pain or fever and WBC has been normal, will change to oral levaquin for total of 7 days and will add Flagyl 500 bid x 5 days Diet has been advanced to bland diet which she is tolerating. # stenosis of UPJ- right--by Urology no intervention needed. They recommend outpatient follow-up # acute UTI--urine culture negative, same antibiotics as above. # hypertension - continue lisinopril # hypothyroidism -continue levothyroxine Time Spent with Patient Time attestation: Total time managing care of this patient today ____ minutes. Discharge coordination time: Greater than 30 minutes Quality: Safe Use of Opioids Does Pt have an Active Cancer Diagnosis on the Problem List?: No Quality: Stroke Does the patient have a stroke diagnosis?: No Physical Exam Vital Signs: Vital Signs: Last Vital Signs Temp 98.2 F 12/25/22 08:00 Pulse 74 12/25/22 08:00 Resp 16 12/25/22 08:00 BP 130/60 12/25/22 08:00 Pulse Ox 97 12/25/22 08:00 O2 Del Method 12/25/22 08:00 BMI result Body Mass Index 25.8 Discharge Plan Discharge Anticipated Discharge Date/Time: 12/25/22 11:08 Patient Disposition: Home, Self-Care Referrals: Name,MD Cedric [Primary Care Provider] - 1 Week Discharge Medications: New levofloxacin 500 mg tablet 500 mg PO DAILY 5 Days Qty: 5 0RF metronidazole 500 mg tablet 500 mg PO BID Qty: 10 0RF Continued levothyroxine 75 mcg tablet 1 tab PO DAILY bisacodyl [Dulcolax (bisacodyl)] 5 mg tablet,delayed release (DR/EC) 10 mg PO BEDTIME Qty: 180 4RF docusate sodium 100 mg capsule 100 mg PO BEDTIME Qty: 90 3RF lisinopril 10 mg tablet 10 mg PO DAILY Discharge Orders: Discharge Order (Routine); Ordered 12/25/22 Ordered By: Javon Pleitez Diet: Advance to usual diet Activity on Discharge: As tolerated Stand Alone Forms: Patient Portal Discharge page Care Plan Goals: full recovery from diverticulitis Health Concerns: Kidneys Diverticulitis Plan of Treatment: Take Levaquin and Flagyl (metronidazole) as directed and follow up with your doctor within a week, Eat fiber rich diet Follow-up with urology for the kidney stone Assessment: See above Patient Instructions: Diverticulitis (ED)
[2022-12-25 11:22] VITALS: BP 129/72; PULSE 76; RESP 16; TEMP 37.1; O2SAT 98
== END 2022-12-25 13:14 | disposition home or self-care (01) ==
LOC: HO.ED 21:33 → HO.EDOVER 12-24 00:30 → HO.S3 12-24 03:39
PROVIDERS: Physician Assistant; Admitting Provider Internal Medicine; Emergency Provider Emergency Medicine; PCP Internal Medicine Geriatric Medicine; Visit Provider Internal Medicine
DX: Q62.11 Congenital occlusion of ureteropelvic junction (principal); E03.9 Hypothyroidism, unspecified; I10 Essential (primary) hypertension; K59.09 Other constipation; R10.32 Left lower quadrant pain; K57.92 Diverticulitis of intestine, part unspecified, without perforation or abscess without bleeding; N39.0 Urinary tract infection, site not specified; N20.0 Calculus of kidney
CPT/HCPCS: 36415; 74177; 80048; 80053; 81001; 83690; 83735; 84484; 84702; 85025; 87635; 93005; 99221; 99285; J0696; J1200; J1650; J1956; J2405; J2930; Q9967

== ENCOUNTER → 2022-12-28 10:48 | Outpatient (BNVA) | payer MEDICAID, SELFPAY | PROVIDERS: PCP Internal Medicine Geriatric Medicine; Visit Provider Nurse Practitioner Family | DX: K59.04 Chronic idiopathic constipation (principal); K57.92 Diverticulitis of intestine, part unspecified, without perforation or abscess without bleeding | CPT/HCPCS: 99212 ==

== ENCOUNTER → 2023-01-24 09:46 | Outpatient (BNVA) | payer MEDICAID, SELFPAY | PROVIDERS: PCP Internal Medicine Geriatric Medicine; Visit Provider Nurse Practitioner Family | DX: N20.0 Calculus of kidney (principal); N13.5 Crossing vessel and stricture of ureter without hydronephrosis; N39.0 Urinary tract infection, site not specified | CPT/HCPCS: 36415; 82565; 84520; 99212 ==

== ENCOUNTER 2023-01-24 10:46 | Outpatient (REF) | payer MEDICAID, SELFPAY ==
[2023-01-24 14:12] LABS: Blood Urea Nitrogen 14 mg/dL (9-16); Estimated Glomerular Filt Rate > 60
== END 2023-01-24 10:47 | disposition home or self-care (01) ==
LOC: HO.10HDL 10:46
PROVIDERS: Visit Provider Nurse Practitioner Family
DX: R39.15 Urgency of urination (principal)
CPT/HCPCS: 36415; 82565; 84520

== ENCOUNTER 2023-04-01 14:15 | Outpatient (REF) | payer MEDICAID, SELFPAY ==
--- NOTE | ~2023-04-01 | US_ITS ---
EXAMINATION: US RETROPERITONEAL LIMITED (RENAL ONLY) CLINICAL INFORMATION: Calculus of kidney. COMPARISON: Renal ultrasound 02/22/2022. TECHNIQUE: Real-time imaging of the kidneys. FINDINGS: RIGHT KIDNEY: 11.7 x 4.6 x 5.4 cm (SAG x AP x TRV). The kidney is normal in size, contour, and echogenicity. Renal cortical thickness is normal. No renal calculi or focal parenchymal lesions. Mild right hydroureteronephrosis similar to prior. LEFT KIDNEY: 9.9 x 5.2 x 4.7 cm (SAG x AP x TRV). The kidney is normal in size, contour, and echogenicity. Renal cortical thickness is normal. No calculi or focal parenchymal lesions. No hydronephrosis. Bilateral ureteral jets are demonstrated. US/US renal BI IMPRESSION: Mild right hydroureteronephrosis similar to prior. No nephrolithiasis appreciated.
== END 2023-04-01 14:16 | disposition home or self-care (01) ==
LOC: HO.US 14:15
PROVIDERS: PCP Internal Medicine Geriatric Medicine; Visit Provider Nurse Practitioner Family
DX: N20.0 Calculus of kidney (principal); N13.5 Crossing vessel and stricture of ureter without hydronephrosis
CPT/HCPCS: 76775

== ENCOUNTER → 2023-04-05 12:09 | Outpatient (BNVA) | payer MEDICAID, SELFPAY | PROVIDERS: PCP Internal Medicine Geriatric Medicine; Visit Provider Nurse Practitioner Family | DX: K59.04 Chronic idiopathic constipation (principal); K57.90 Diverticulosis of intestine, part unspecified, without perforation or abscess without bleeding; Z79.899 Other long term (current) drug therapy | CPT/HCPCS: 99212 ==

== ENCOUNTER → 2023-04-07 13:47 | Outpatient (BNVA) | payer MEDICAID, SELFPAY | PROVIDERS: PCP Internal Medicine Geriatric Medicine; Visit Provider Nurse Practitioner Family | DX: N13.30 Unspecified hydronephrosis (principal) | CPT/HCPCS: 99212 ==

== ENCOUNTER 2023-05-05 10:00 | Outpatient (REF) | payer MEDICAID, SELFPAY ==
[2023-05-05 12:53] LABS: Free T4 (Free Thyroxine) 1.02 ng/dL (0.71-1.85); Thyroid Stimulating Hormone 0.96 uIU/mL (0.32-4.0)
== END 2023-05-05 10:01 | disposition home or self-care (01) ==
LOC: HO.LAB 10:00
PROVIDERS: Absent Provider Internal Medicine; PCP Internal Medicine Geriatric Medicine; Visit Provider Obstetrics & Gynecology
DX: E03.8 Other specified hypothyroidism (principal); E06.3 Autoimmune thyroiditis
CPT/HCPCS: 36415; 81003; 84439; 84443

== ENCOUNTER 2023-05-23 11:18 | Outpatient (REF) | payer OTHER, SELFPAY ==
--- NOTE | ~2023-05-23 | MM_ITS ---
EXAMINATION: MM SCREENING DIGITAL BREAST TOMOSYNTHESIS, BILATERAL CLINICAL INFORMATION: Screening. Asymptomatic. The lifetime risk of breast cancer based on the Tyrer-Cuzick Model is 4.9%. COMPARISON: Mammography: This study is compared with prior exams dating back to 2019. TECHNIQUE: Digital breast tomosynthesis is performed in both the craniocaudal and mediolateral oblique views along with computer-aided detection (CAD). Synthesized 2D images are generated from the tomosynthesis. FINDINGS: There are scattered areas of fibroglandular density (ACR BI-RADS breast composition Category b). There are no significant masses, abnormal calcifications, or other abnormalities. MM/MM tomosynthesis screening BI IMPRESSION: No mammographic evidence of malignancy. ASSESSMENT: BI-RADS BI-RADS 1 - Negative RECOMMENDATION: Routine annual mammography screening. 1 year F/U This examination should not preclude the clinical evaluation of a suspicious palpable abnormality. This patient's information was entered into a reminder system with a target due date for their next mammogram.
== END 2023-05-23 11:19 | disposition home or self-care (01) ==
LOC: HO.MAMMO 11:18
PROVIDERS: PCP Internal Medicine Geriatric Medicine; Visit Provider Internal Medicine Geriatric Medicine
DX: Z12.31 Encounter for screening mammogram for malignant neoplasm of breast (principal)
CPT/HCPCS: 77063; 77067

== ENCOUNTER → 2023-05-23 11:30 | Outpatient (BNV) | payer MEDICAID, SELFPAY | PROVIDERS: PCP Internal Medicine Geriatric Medicine; Visit Provider Radiology Diagnostic Radiology | DX: Z12.31 Encounter for screening mammogram for malignant neoplasm of breast (principal) | CPT/HCPCS: 77063; 77067 ==

== ENCOUNTER 2023-05-31 11:56 | Outpatient (AMB) | payer MEDICAID, SELFPAY ==
--- NOTE | 2023-05-31 12:17 | MHC.OFFVIS ---
Intake Vital Signs 05/31/23 12:20 Height 5 ft 1 in Weight 138 lb 0.15 oz BMI 26.1 BP 121/76 Blood Pressure Location Lt brachial Position Sitting Pulse 86 Intake Visit Reasons: 3 month follow up Intake Note: Crecencia presents in office as a est.patient for a 3month f/u for [facility] PT CC: pt reports having no concerns pt denies any other GI Issues Maple Products Maker Required: Yes Maple Products Maker Language: Polish Accompanied by: Self / Same As Patient Allergies ceftriaxone Allergy (Severe, Verified 06/15/23 07:55) Difficulty Breathing magnesium hydroxide [From Milk of Magnesia] Allergy (Mild, Verified 06/15/23 07:55) Rash HPI 3 month follow up HPI Details LAST VISIT: Chronic idiopathic constipation Continue taking Colace and Dulcolax. Patient tries to take Linzess in the past, however she had severe cramps. Patient was also encouraged to increase fluid intake and activity to promote better bowel motility. Diverticulosis Patient was encouraged to drink plenty fluids. High-fiber diet. Patient will return in 2 months and we will send her for colonoscopy. Last colonoscopy was 05/25/2018. Patient is agreeable to this plan and verbalizes understanding of instructions. She was given the opportunity to ask questions and all questions answered. ? Thank you for allowing me to participate in her care Plan Medications Discontinued metronidazole Discontinued Reason: Patient Completed Course 500 mg PO BID 10 tabs 0RF TODAY'S VISIT Patient is here today for follow-up and to discuss going for colonoscopy. As mentioned above patient had colonoscopy in 2018. Family history of colorectal cancer. Patient's mom was diagnosed with colorectal cancer at age 52. Patient reports that she is moving her bowels better now that she is taking Colace and Dulcolax tablets. Patient denies melena, hematochezia, unintentional weight loss or ribbon like stools. Patient states that she has been feeling well. Patient [place] and stated that she was feeling well there and had no issues. Patient states that she was able to eat pizza and food that she is unable to eat here. Patient denies dyspepsia, dysphagia or odynophagia. Denies any issues with anesthesia in the past. No history of sleep apnea. Not on any anticoagulation medication. Patient had history of diverticulitis in the past she should undergo for colonoscopy. [facility] Medical History Endometrial hyperplasia GERD (gastroesophageal reflux disease) Heartburn Hemorrhoids with complication Hypothyroidism Kidney stone Skin lesion of back Vitamin D deficiency Surgical History History of surgery Hx of colonoscopy Hx of esophagogastroduodenoscopy Hx of unilateral oophorectomy Tubal ligation status Family History Father Hypertension Respiratory failure Mother Pancreatic cancer Social History Household Members: Spouse Housing: House Do you presently have visiting nurse or other home services: No Alcohol intake: never Patient Tobacco Use Status: Never used Tobacco Second Hand Smoke Exposure: No service: No Current occupational status: employed Current occupation: [employer] Sexual orientation: Straight/Heterosexual Gender identity: Female Female Reproductive History Menstrual Age of Menarche: 16 Review of Systems Const Denies weight gain and Denies weight loss ENT Reports no additional complaints, Denies dysphagia and Denies odynophagia Card Reports no additional complaints Resp Reports no additional complaints GI Denies abdominal pain, Denies belching, Denies melena, Denies bloating, Denies change in bowel habits, Denies dysphagia, Denies excessive flatus, Denies dyspepsia, Denies heartburn, Denies diarrhea, Denies loose stools, Denies nausea, Denies odynophagia and Denies vomiting Musc Reports no additional complaints Neuro Reports no additional complaints Psych Reports no additional complaints Endo Reports no additional complaints Physical Exam Vital Signs: Last Vital Signs Pulse 86 05/31/23 12:20 BP 121/76 05/31/23 12:20 BMI result Body Mass Index 26.1 Const General: healthy appearing, no acute distress and well developed Nutritional Appearance: well nourished Orientation/consciousness: patient oriented x3 HEENT Head: Yes normal to inspection, Yes normocephalic and Yes atraumatic Face and sinus: Yes normal facial exam Mouth: Normal oral and palatal mucosa present Throat: Yes posterior oropharynx normal, Yes tonsils normal and Yes uvula midline Eyes General: appearance normal, both eyes and all related structures Neck Neck: Yes normal visual inspection, Yes full ROM and Yes trachea midline Thyroid: Thyroid normal Resp Effort & Inspection: normal respiratory effort, able to speak in complete sentences, no tracheal deviation and symmetric chest movement Auscultation: clear to auscultation bilaterally Cardio Rate: regular rate Heart sounds: S1 normal heart sound present and S2 normal heart sound present GI Inspection: Yes normal to inspection and No distended Palpation (GI): Soft to palpation, not firm, nontender and No hepatosplenomegaly present Auscultation: normal bowel sounds General: Yes no CVA tenderness Back/Spine/Pelvis Back: no CVA tenderness Skin General skin exam: elasticity normal, turgor normal and dry skin Neuro General: patient oriented x3 Psych Appearance: grossly normal Mental Status: mental status grossly normal Speech and movement: Normal speech and movement present Assessment & Plan Assessment & Plan (1) Chronic idiopathic constipation: Code(s): K59.04 - Chronic idiopathic constipation Plan: Chronic constipation. Patient can continue stool softeners and Dulcolax. Patient was also encouraged to try MiraLax if she is unable to have a bowel movement. (2) Screen for colon cancer: Code(s): Z12.11 - Encounter for screening for malignant neoplasm of colon Plan: Family history of colorectal cancer. Patient's mother of colorectal cancer at age 52 (3) History of diverticulitis: Code(s): Z87.19 - Personal history of other diseases of the digestive system Plan: History of diverticulitis. Patient was encouraged to avoids certain dietary is triggers. Patient was also encouraged to make sure that she is moving her bowels every day. Drink plenty fluids. Patient also is to try [id number] probiotic. I will see her after the procedure, sooner on as needed basis if patient is agreeable to this plan and verbalizes understanding of instructions. She was given the opportunity to ask questions and all questions answered. Thank you for allowing me to participate in her care Medications: New bisacodyl (Dulcolax (bisacodyl)) take 2 tabs at noon the day before your colonoscopy 10 mg (2 x 5 mg) PO ONCE 2 tabs 0RF 1 day Z12.11 - Encounter for screening for malignant neoplasm of colon polyethylene glycol 3350 (Miralax) As directed by gastroenterology department at [facility] 238 grams PO ONCE 238 grams 0RF Z12.11 - Encounter for screening for malignant neoplasm of colon Coding Level of Care Code Est Pt Level 4 (32512) Diagnoses Chronic idiopathic constipation K59.04 Screen for colon cancer Z12.11 History of diverticulitis Z87.19 Time Spent (min) 35 Comment 20 minutes spent with patient and additional 15 minutes spent reviewing her records
[2023-05-31 12:20] VITALS: BP 121/76; PULSE 86; BMI 26.1
== END 2023-05-31 13:15 | disposition home or self-care (01) ==
PROVIDERS: Visit Provider Nurse Practitioner Family
DX: K59.04 Chronic idiopathic constipation (principal); Z12.11 Encounter for screening for malignant neoplasm of colon; Z87.19 Personal history of other diseases of the digestive system
CPT/HCPCS: 99214

== ENCOUNTER → 2023-05-31 11:56 | Outpatient (BNVA) | payer OTHER, SELFPAY | PROVIDERS: Visit Provider Nurse Practitioner Family | DX: Z12.11 Encounter for screening for malignant neoplasm of colon (principal); K59.04 Chronic idiopathic constipation; Z87.19 Personal history of other diseases of the digestive system | CPT/HCPCS: 99212 ==

== ENCOUNTER → 2023-06-15 07:54 | Outpatient (BNVA) | payer OTHER, MEDICAID, SELFPAY | PROVIDERS: PCP Internal Medicine Geriatric Medicine; Visit Provider Internal Medicine ==

== ENCOUNTER 2023-06-22 17:08 | Inpatient (IN) | payer OTHER, SELFPAY ==
--- NOTE | ~2023-06-22 | CT_ITS ---
EXAMINATION: CT ABDOMEN AND PELVIS WITHOUT CONTRAST CLINICAL INFORMATION: Left flank pain COMPARISON: Renal ultrasound March 2023. Most recent CT abdomen and pelvis December 2022. TECHNIQUE: Multidetector volumetric imaging was performed from the superior aspect of the liver through the pubic symphysis. Sagittal and coronal reformatted images were obtained on the technologist's workstation. This CT examination was performed using dose optimization techniques as appropriate, variously including the following: *Automated exposure control *Adjustment of mA and/or kV according to patient size (this includes techniques or standardized protocols for targeted exams where dose is matched to indication/reason for exam; i.e. extremities or head) *Use of iterative reconstruction technique DLP: 385 mGy-cm FINDINGS: LUNG BASES: The visualized lung bases are unremarkable. LIVER, GALLBLADDER, AND BILIARY TREE: Decreased attenuation of liver compatible with hepatic steatosis unchanged. No focal abnormality. The gallbladder is unremarkable with no evidence of radiopaque gallstones, gallbladder wall thickening, or obvious pericholecystic inflammatory changes. PANCREAS: Unremarkable. SPLEEN: Unremarkable. ADRENAL GLANDS: Unremarkable. KIDNEYS AND URETERS: Extrarenal pelvis in the right kidney unchanged compared with multiple prior examinations. Right ureter normal. Left collecting system normal. Left kidney normal. BLADDER: Unremarkable. GASTROINTESTINAL TRACT: Colon: There is scattered diverticulosis noted throughout the large bowel most prominent in the descending colon and sigmoid. There is concomitant pericolonic feathery-appearing stranding along a 7.5 cm segment of the upper portion of the ascending colon compatible with acute diverticulitis . There is no surrounding fluid collection/abscess or surrounding gas. The large bowel is otherwise unremarkable. Appendix normal. Small bowel and stomach normal. ABDOMINAL WALL: No significant hernia is appreciated. LYMPH NODES: Normal. VASCULAR: Unremarkable. PELVIC VISCERA: Unremarkable. OSSEOUS STRUCTURES: Mild spondylosis of lumbar sacral spine unchanged with degenerative disc changes most evident at the L4-L5 level CT/CT abdomen pelvis wo IV con IMPRESSION: 1. ACUTE DIVERTICULITIS of the descending colon. 2. Hepatic steatosis unchanged. 3. No obstructing calculus Fleischner guidelines were followed.
--- NOTE | 2023-06-22 17:34 | ED_ITS ---
HPI - Abdominal Pain General Chief Complaint: Abdominal Pain Stated Complaint: Sent by /kely pain/side pain/fever Time Seen by Provider: 06/22/23 19:15 Source: patient Mode of arrival: ambulatory Limitations: no limitations History of Present Illness HPI narrative: Patient history of diverticulitis last episode in 02/02 comes here with lower abdominal pain for last 3 days got worse today increases on ambulation localized mostly in the left lower abdomen no fever no chills no diarrhea no blood in stool , slight dysuria ++ Related Data Home Medications Medication Instructions Recorded Confirmed lisinopril 10 mg tablet 10 mg PO DAILY 09/14/22 06/22/23 levothyroxine 75 mcg tablet 1 tab PO DAILY 12/23/22 06/22/23 acetaminophen 325 mg tablet 650 mg PO Q6H PRN pain/fever 06/22/23 06/22/23 Previous Rx's Medication Instructions Recorded bisacodyl 5 mg tablet,delayed 10 mg PO BEDTIME #180 tabs 11/17/22 release (Dulcolax (bisacodyl)) docusate sodium 100 mg capsule 100 mg PO BEDTIME #90 caps 12/13/22 Allergies Allergy/AdvReac Type Severity Reaction Status Date / Time ceftriaxone Allergy Severe Difficulty Verified 06/15/23 07:55 Breathing magnesium hydroxide Allergy Mild Rash Verified 06/15/23 07:55 [From Milk of Magnesia] Review of Systems Review of Systems Yes all other systems are reviewed and are negative PMFSH Past Medical History Medical History Endometrial hyperplasia GERD (gastroesophageal reflux disease) Heartburn Hemorrhoids with complication Hypothyroidism Kidney stone Skin lesion of back Vitamin D deficiency Surgical History History of surgery Hx of colonoscopy Hx of esophagogastroduodenoscopy Hx of unilateral oophorectomy Tubal ligation status Family History Family History Father Hypertension Respiratory failure Mother Pancreatic cancer Social History Social History Household Members: Spouse Housing: House Alcohol intake: never Patient Tobacco Use Status: Never used Tobacco Smoked in Last 30 Days: No Second Hand Smoke Exposure: No Use of substances other than those prescribed or required for medical reasons: No Advance Directives: No Advance Directives Information Provided: No Nutrition Risks: No Nutritional Risk Patient : No service: No Current occupational status: employed Current occupation: [employer] program Sexual orientation: Straight/Heterosexual Gender identity: Female Physical Exam ED Vital Signs: Vital Signs - 24 hr 06/22/23 17:35 06/22/23 20:00 06/22/23 21:02 Temperature 98.2 F 98.1 F Pulse Rate 98 80 75 Respiratory Rate 18 12 16 Blood Pressure 114/73 121/75 108/63 Pulse Oximetry 97 98 96 Oxygen Delivery Method Room Air Room Air Room Air BMI result Body Mass Index 25.1 Appearance: Alert. Oriented X3. No acute distress. Eyes: PERRLA, No Nystagmus ENT: Pharynx normal. Oral Mucosa moist Neck: Normal inspection. Neck supple. CVS: Normal heart rate and rhythm. Pulses normal. Respiratory: No respiratory distress. Equal air entry bilateral, no wheezing/rales/rhonchi Abdomen: Soft tender left lower quadrant with guarding no rebound tenderness. Bowel sounds are present, no mass palpable, no CVA tenderness Skin: Skin warm and dry. Normal skin color. Normal skin turgor. Extremities: No lower extremity edema. No calf tenderness Neuro: Oriented X 3. No motor deficit. Course Course Course Narrative: RME - 53 y/o Moldovan speaking female with history of recurrent diverticulitis, kidney stones, GERD, hypothyroidism who presents to the ER for evaluation of left sided back pain that migrated to the left side of her abdomen that started 3 days ago. No N/V/D. +dysuria and sensation of incomplete bladder emptying Plan: labs and UA, CT scan abd/pelvis r/o kidney stone (reported history of throat closing with IV contrast in the past but has had 2 CT scans here with contrast without getting pre-medicated) Medical Decision Making Medical Decision Making MDM Narrative: Patient has uncomplicated diverticulitis will admit patient for IV antibiotics and pain control Differential Diagnosis Diverticulitis/perforation/abscess/colitis Consult Healthcare Provider Management of the patient was discussed with: Hospitalist Lab Data MDM Lab Attestation statement: I reviewed the patient's lab results. 06/22/23 17:48 06/22/23 17:48 Labs: Lab Results 06/22/23 06/22/23 06/22/23 Range/Units 17:48 17:48 17:48 WBC 12.1 H (4.8-10.8) X10*3/uL RBC 4.50 (4.20-5.50) X10*6/uL Hgb 12.6 (12.0-16.0) g/dl Hct 39.5 (37.0-47.0) % MCV 87.8 (80.0-98.0) fL MCH 28.0 (27.0-33.0) pg MCHC 31.9 (31.0-35.0) g/dl RDW 13.4 (11.0-16.0) % Plt Count 192 D (160-400) X10*3/uL MPV 13.1 H (9.4-12.3) fL Immature Gran % (Auto) 0.4 (0.0-0.4) % Neut % (Auto) 66.2 (45-73) % Lymph % (Auto) 24.0 (20-40) % [place] % (Auto) 8.0 (2-11) % Eos % (Auto) 0.5 (0-4) % Baso % (Auto) 0.9 (0-2) % Lymph # (Auto) 2.9 (1.2-4.9) X10*3/uL [place] # (Auto) 1.0 (0.1-1.2) X10*3/uL Eos # (Auto) 0.1 (0.0-0.4) X10*3/uL Baso # (Auto) 0.1 (0.0-0.2) X10*3/uL Abs Immat Gran (auto) 0.05 H (0.00-0.03) X10*3/uL Absolute Neuts (auto) 8.0 (2.0-8.3) x10*3/uL Absolute Nucleated RBC 0.000 (0.0-0.012) X10*3/uL Nucleated RBC % (auto) 0.0 (0.0-0.2) /100WBC Smear Tech's Comments VERIFIED Sodium 139 (135-145) mmol/L Potassium 4.5 (3.3-5.1) mmol/L Chloride 102 (96-108) mmol/L Carbon Dioxide 26 (22-29) mmol/L Anion Gap 16 (12-20) BUN 10 (9-16) mg/dL Creatinine 0.95 (0.5-1.4) mg/dL Estim Creat Clear Calc 55.8 Estimated GFR > 60 Random Glucose 104 (60-115) mg/dL Lactic Acid (0.5-2.0) mmol/L Calcium 10.3 H D (8.4-10.2) mg/dL Magnesium 2.5 (1.6-2.6) mg/dL Total Bilirubin 1.2 H (0.0-1.0) mg/dL Direct Bilirubin 0.4 (0.0-0.5) mg/dL AST 21 (5-31) U/L ALT 21 (0-31) U/L Alkaline Phosphatase 97 (39-117) U/L Total Protein 8.4 H (6.5-8.0) g/dL Albumin 4.5 (3.5-5.0) g/dL Urine Color Yellow Urine Appearance Clear Urine pH 6.0 (5.0-9.0) Ur Specific [place] 1.015 (1.005-1.025) Urine Protein 100 (2+) H (Neg-Trace) mg/dL Urine Glucose (UA) Negative (Negative) mg/dL Urine Ketones Trace (Negative) mg/dL Urine Blood Negative (Negative) Urine Nitrite Negative (Negative) Ur Leukocyte Esterase Small (1+) H (Negative) Urine RBC 0-2 (0-2) /HPF Urine WBC 11-20 H (0-5) /HPF Ur Squamous Epith Cells 3-5 (0-2) /HPF Urine Bacteria None Seen (None Seen) Hyaline Casts 0-2 (0-2) /LPF /08/06 Range/Units 19:48 WBC (4.8-10.8) X10*3/uL RBC (4.20-5.50) X10*6/uL Hgb (12.0-16.0) g/dl Hct (37.0-47.0) % MCV (80.0-98.0) fL MCH (27.0-33.0) pg MCHC (31.0-35.0) g/dl RDW (11.0-16.0) % Plt Count (160-400) X10*3/uL MPV (9.4-12.3) fL Immature Gran % (Auto) (0.0-0.4) % Neut % (Auto) (45-73) % Lymph % (Auto) (20-40) % [place] % (Auto) (2-11) % Eos % (Auto) (0-4) % Baso % (Auto) (0-2) % Lymph # (Auto) (1.2-4.9) X10*3/uL [place] # (Auto) (0.1-1.2) X10*3/uL Eos # (Auto) (0.0-0.4) X10*3/uL Baso # (Auto) (0.0-0.2) X10*3/uL Abs Immat Gran (auto) (0.00-0.03) X10*3/uL Absolute Neuts (auto) (2.0-8.3) x10*3/uL Absolute Nucleated RBC (0.0-0.012) X10*3/uL Nucleated RBC % (auto) (0.0-0.2) /100WBC Smear Tech's Comments Sodium (135-145) mmol/L Potassium (3.3-5.1) mmol/L Chloride (96-108) mmol/L Carbon Dioxide (22-29) mmol/L Anion Gap (12-20) BUN (9-16) mg/dL Creatinine (0.5-1.4) mg/dL Estim Creat Clear Calc Estimated GFR Random Glucose (60-115) mg/dL Lactic Acid 0.9 (0.5-2.0) mmol/L Calcium (8.4-10.2) mg/dL Magnesium (1.6-2.6) mg/dL Total Bilirubin (0.0-1.0) mg/dL Direct Bilirubin (0.0-0.5) mg/dL AST (5-31) U/L ALT (0-31) U/L Alkaline Phosphatase (39-117) U/L Total Protein (6.5-8.0) g/dL Albumin (3.5-5.0) g/dL Urine Color Urine Appearance Urine pH (5.0-9.0) Ur Specific [place] (1.005-1.025) Urine Protein (Neg-Trace) mg/dL Urine Glucose (UA) (Negative) mg/dL Urine Ketones (Negative) mg/dL Urine Blood (Negative) Urine Nitrite (Negative) Ur Leukocyte Esterase (Negative) Urine RBC (0-2) /HPF Urine WBC (0-5) /HPF Ur Squamous Epith Cells (0-2) /HPF Urine Bacteria (None Seen) Hyaline Casts (0-2) /LPF Radiology Impression Discussion of test interpretation with radiology: I have reviewed the radiologist's reading. Radiologist Impression: [address] [address] [address] Scan Report Signed Patient: Maryann Tan MR#: [id number] : 1970 Acct:[id number] Age/Sex: 53 / F ADM Date: 06/22/23 Loc: .ED Attending Dr: Ordering Physician: Mecca Alvarez Date of Service: 06/22/23 Procedure(s): CT abdomen pelvis wo IV con Accession Number(s): [id number] cc: Mecca Alvarez~ EXAMINATION: CT ABDOMEN AND PELVIS WITHOUT CONTRAST? CLINICAL INFORMATION: Left flank pain? COMPARISON: Renal ultrasound March 2023. Most recent CT abdomen and pelvis December 2022. TECHNIQUE: Multidetector volumetric imaging was performed from the superior aspect of the liver through the pubic symphysis. Sagittal and coronal reformatted images were obtained on the technologist's workstation.? This CT examination was performed using dose optimization techniques as appropriate, variously including the following: *Automated exposure control *Adjustment of mA and/or kV according to patient size (this includes techniques or standardized protocols for targeted exams where dose is matched to indication/reason for exam; i.e. extremities or head) *Use of iterative reconstruction technique DLP: 385 mGy-cm FINDINGS: LUNG BASES: The visualized lung bases are unremarkable.? LIVER, GALLBLADDER, AND BILIARY TREE: Decreased attenuation of liver compatible with hepatic steatosis unchanged. No focal abnormality. The gallbladder is unremarkable with no evidence of radiopaque gallstones, gallbladder wall thickening, or obvious pericholecystic inflammatory changes.? PANCREAS: Unremarkable.? SPLEEN: Unremarkable.? ADRENAL GLANDS: Unremarkable.? KIDNEYS AND URETERS: Extrarenal pelvis in the right kidney unchanged compared with multiple prior examinations. Right ureter normal. Left collecting system normal. Left kidney normal. BLADDER: Unremarkable.? GASTROINTESTINAL TRACT: Colon: There is scattered diverticulosis noted throughout the large bowel most prominent in the descending colon and sigmoid. There is concomitant pericolonic feathery-appearing stranding along a 7.5 cm segment of the upper portion of the ascending colon compatible with acute diverticulitis . There is no surrounding fluid collection/abscess or surrounding gas. The large bowel is otherwise unremarkable. Appendix normal. Small bowel and stomach normal. ABDOMINAL WALL: No significant hernia is appreciated.? LYMPH NODES: Normal. VASCULAR: Unremarkable. PELVIC VISCERA: Unremarkable.? OSSEOUS STRUCTURES: Mild spondylosis of lumbar sacral spine unchanged with degenerative disc changes most evident at the L4-L5 level? CT/CT abdomen pelvis wo IV con IMPRESSION: 1.? ACUTE DIVERTICULITIS of the descending colon. 2.? Hepatic steatosis unchanged. 3.? No obstructing calculus Medications Administered Generic Name Dose Route Start Last Admin Trade Name Freq PRN Reason Stop Dose Admin Metronidazole 500 mg in 100 mls @ 100 mls/hr 06/22/23 23:00 06/22/23 23:41 Flagyl IV Infused Q8H NORMA Infusion Lactated Ringer's 1,000 mls @ 100 mls/hr 06/22/23 22:15 06/22/23 22:40 Lr IVCONT 100 mls/hr .Q10H NORMA Administration Levofloxacin 750 mg in 150 mls @ 100 mls/hr 06/22/23 23:00 06/23/23 00:15 Levaquin IV Infused Q24H NORMA Infusion Discontinued Medications Generic Name Dose Route Start Last Admin Trade Name Freq PRN Reason Stop Dose Admin Sodium Chloride 1,000 mls @ 999 mls/hr 06/22/23 19:30 06/22/23 21:21 Ns IV 06/22/23 20:30 Infused .Q1H1M ONE Infusion Piperacillin Sod/Tazobactam 50 mls @ 100 mls/hr 06/22/23 19:30 06/22/23 20:27 Sod 3.375 gm/ Sodium Chloride IV 06/22/23 19:59 Infused ONCE ONE Infusion Morphine Sulfate 4 mg 06/22/23 19:36 06/22/23 19:57 Morphine Sulfate 4 Mg/Ml Cartridge IVPUSH 06/22/23 19:37 4 mg ONCE ONE Administration Protocol Ondansetron HCl 4 mg 06/22/23 19:36 06/22/23 19:57 Ondansetron Hcl 4 Mg/2 Ml Vial IVPUSH 06/22/23 19:37 4 mg ONCE ONE Administration Discharge Plan Discharge Clinical Impression: Diverticulitis Patient Disposition: Admitted As Inpatient
[2023-06-22 17:35] VITALS: BP 114/73; PULSE 98; RESP 18; TEMP 36.8; O2SAT 97; BMI 25.1
[2023-06-22 18:09] LABS: Appearance Urine Clear; Basophils Absolute Auto 0.1 X10*3/uL (0.0-0.2); Basophils Percent Auto 0.9 % (0-2); Color Urine Yellow; Glucose Urine UA Negative (Negative); Hemoglobin 12.6 g/dl (12.0-16.0); Leukocyte Esterase Urine Small (1+) (Negative); Mean Platelet Volume 13.1 fL (9.4-12.3); Nitrite Urine Negative (Negative); SCAN SMEAR FLAG 1; Specific Gravity - Urine 1.015 (1.005-1.025); UMIC TRIGGER UACC YES; Urine Blood Negative (Negative); Urine Ketones Trace mg/dL (Negative); Urine Protein 100 (2+) mg/dL (Neg-Trace)
[2023-06-22 18:10] LABS: Eosinophils Absolute Auto 0.1 X10*3/uL (0.0-0.4); Eosinophils Percent Auto 0.5 % (0-4); Hematocrit 39.5 % (37.0-47.0); Imm Gran Abs Auto 0.05 X10*3/uL (0.00-0.03); Imm Gran Pct Auto 0.4 % (0.0-0.4); Lymphocytes Absolute Auto 2.9 X10*3/uL (1.2-4.9); MANUAL DIFF FLAG SCAN; Mean Corpuscular HGB Conc 31.9 g/dl (31.0-35.0); Mean Corpuscular Volume 87.8 fL (80.0-98.0); Neutrophils Percent Auto 66.2 % (45-73); Platelet Count 192 X10*3/uL (160-400); Red Cell Distribution Width 13.4 % (11.0-16.0); White Blood Count 12.1 X10*3/uL (4.8-10.8)
[2023-06-22 18:15] LABS: Bacteria Urine None Seen (None Seen); Hyaline Casts Urine 0-2 /LPF (0-2); RBC Urine 0-2 /HPF (0-2); UACC Culture Trigger YES
[2023-06-22 18:17] LABS: PLT ABN DIST 1
[2023-06-22 18:23] LABS: SLIDE REVIEW VERIFIED
[2023-06-22 18:51] LABS: Alanine Aminotransferase 21 U/L (0-31); Albumin Level 4.5 g/dL (3.5-5.0); Alkaline Phosphatase 97 U/L (39-117); Anion Gap 16 (12-20); Aspartate Amino Transferase 21 U/L (5-31); Bilirubin Direct 0.4 mg/dL (0.0-0.5); Bilirubin Total 1.2 mg/dL (0.0-1.0); Blood Urea Nitrogen 10 mg/dL (9-16); Calcium 10.3 mg/dL (8.4-10.2); Carbon Dioxide 26 mmol/L (22-29); Chloride 102 mmol/L (96-108); Creatinine Clr Calc Pharmacy 55.8; Estimated Glomerular Filt Rate > 60; Glucose Random 104 mg/dL (60-115); Magnesium 2.5 mg/dL (1.6-2.6); Potassium 4.5 mmol/L (3.3-5.1); Sodium 139 mmol/L (135-145); Total Protein 8.4 g/dL (6.5-8.0)
[2023-06-22] MEDS: ondansetron HCL 4 MG/2 ML VIAL IVPUSH (19:57)
[2023-06-22] MEDS: Piperacillin Sodium/Tazobactam 3.375 GM in 0.9 % Sodium Chloride 50 ML IV (19:57)
[2023-06-22] MEDS: 0.9 % Sodium Chloride 1,000 ML 999 ML IV (19:57)
[2023-06-22] MEDS: Morphine Sulfate 4 MG/ML CARTRIDGE IVPUSH (19:57)
[2023-06-22 20:00] VITALS: BP 121/75; PULSE 80; RESP 12; TEMP 36.7; O2SAT 98
[2023-06-22 20:05] LABS: Lactic Acid 0.9 mmol/L (0.5-2.0)
--- NOTE | 2023-06-22 20:08 | PC.NURSE ---
Pt aox4 resting at the bedside. No apparent distress noted. VSS. Reports left flank pain, 08/23. Labs drawn and sent. 20 G placed on the R FA. Medicated as ordered. Pt tolerated well. Pending admit orders. Pt aware of plan of care.
[2023-06-22 21:02] VITALS: BP 108/63; PULSE 75; RESP 16; O2SAT 96
--- NOTE | 2023-06-22 21:13 | PHA.MEDREC ---
Pharmacy Consult ? Medication Reconciliation Pharmacy has completed the medication reconciliation. Patient reported all the medicatons. Patient report a medication for her urine but did not say a name, and there are no medication in her claim history that would match that descripition. Nhi Castro, PharmD
--- NOTE | 2023-06-22 22:22 | P.HPHOSP_ITS ---
History of Present Illness Date of Service: 06/22/23 Chief Complaint: abd pain Swiss-speaking, history is obtained with the help of an bonding supervisor 53-year-old female past medical history of hypothyroidism, hypertension comes into the hospital with complaints of left lower quadrant abdominal pain. Pain started 3 days prior, intermittent, 10/10, associated with decreased oral intake, constipation, some chills. Patient reports that her pain got worse that is why prompted her to come to the hospital. Patient denies any chest pain, no shortness of breath, no urinary symptoms and no lower extremity edema. No numbness tingling weakness. No headache or change in vision On arrival to the ED patient hemodynamically stable Labs are significant for WBC count of 12.1, uterus shows some leukocyte Estrace, and WBC Abdominal pelvic CT shows acute diverticulitis of the descending colon, patient will be admitted for further management as she is unable to tolerate p.o. intake Review of Systems Review of Systems: Yes all other systems are reviewed and are negative [facility] Medical History Endometrial hyperplasia GERD (gastroesophageal reflux disease) Heartburn Hemorrhoids with complication Hypothyroidism Kidney stone Skin lesion of back Vitamin D deficiency Family History Father Hypertension Respiratory failure Mother Pancreatic cancer Surgical History History of surgery Hx of colonoscopy Hx of esophagogastroduodenoscopy Hx of unilateral oophorectomy Tubal ligation status Social History Household Members: Spouse Housing: House Alcohol intake: never Patient Tobacco Use Status: Never used Tobacco Smoked in Last 30 Days: No Second Hand Smoke Exposure: No Use of substances other than those prescribed or required for medical reasons: No Advance Directives: No Advance Directives Information Provided: No Nutrition Risks: No Nutritional Risk Patient : No service: No Current occupational status: employed Current occupation: [employer] program Sexual orientation: Straight/Heterosexual Gender identity: Female Meds Allergies Allergy/AdvReac Type Severity Reaction Status Date / Time ceftriaxone Allergy Severe Difficulty Verified 06/15/23 07:55 Breathing magnesium hydroxide Allergy Mild Rash Verified 06/15/23 07:55 [From Milk of Magnesia] Active Medications: Current Medications Acetaminophen (Acetaminophen 325 Mg Tablet) 650 mg PO Q6H PRN PRN Reason: Pain, Mild (Pain Scale 1-3) Enoxaparin Sodium (Enoxaparin Sodium 40 Mg/0.4 Ml Syringe) 40 mg SUBCUT Q24H [facility] Metronidazole (Flagyl) 500 mg in 100 mls @ 100 mls/hr IV Q8H [facility] Lactated Ringer's (Lr) 1,000 mls @ 100 mls/hr IVCONT .Q10H [facility] Levofloxacin (Levaquin) 750 mg in 150 mls @ 100 mls/hr IV Q24H [facility] Ondansetron HCl (Ondansetron Hcl 4 Mg/2 Ml Vial) 4 mg IVPUSH Q8H PRN PRN Reason: Nausea and Vomiting Oxycodone HCl (Oxycodone Hcl Immed Release 5 Mg Tablet) 5 mg PO Q6H PRN PRN Reason: Pain, Severe (Pain Scale 7-10) Sodium Chloride (0.9 % Sodium Chloride Flush 3 Ml Syringe) 3 ml IVFLUSH QSHIFT [facility] Home Medications Medication Instructions Recorded Confirmed Last Taken Type lisinopril 10 mg tablet 10 mg PO DAILY 09/14/22 06/22/23 06/22/23 History levothyroxine 75 mcg tablet 1 tab PO DAILY 12/23/22 06/22/23 06/22/23 History acetaminophen 325 mg tablet 650 mg PO Q6H PRN pain/fever 06/22/23 06/22/23 Unknown History Physical Exam Vital Signs and Narrative: Vital Signs: Last Vital Signs Temp 98.1 F 06/22/23 20:00 Pulse 75 06/22/23 21:02 Resp 16 06/22/23 21:02 BP 108/63 06/22/23 21:02 Pulse Ox 96 06/22/23 21:02 O2 Del Method Room Air 06/22/23 21:02 BMI result Body Mass Index 25.1 Const: General: cooperative and no acute distress Orientation/consciousness: patient oriented x3 Eyes: General: appearance normal, both eyes and all related structures Resp: Effort & Inspection: normal respiratory effort Auscultation: clear to auscultation bilaterally Cardio: Rate: regular rate Rhythm: regular rhythm GI: Other: abdomen is tender in the left lower quadrant Palpation (GI): Soft to palpation Auscultation: normal bowel sounds Skin: General skin exam: no rashes or lesions noted Neuro: General: patient oriented x3 Cognition (Neuro): normal cognition Extrem: General: Yes normal to inspection and Yes no pedal edema Results Labs 06/22/23 17:48 06/22/23 17:48 Labs: Laboratory Results - last 24 hr 06/22/23 06/22/23 06/22/23 17:48 17:48 17:48 MCV 87.8 MCH 28.0 MCHC 31.9 RDW 13.4 Plt Count 192 D MPV 13.1 H Immature Gran % (Auto) 0.4 Neut % (Auto) 66.2 Lymph % (Auto) 24.0 [place] % (Auto) 8.0 Eos % (Auto) 0.5 Baso % (Auto) 0.9 Lymph # (Auto) 2.9 [place] # (Auto) 1.0 Eos # (Auto) 0.1 Baso # (Auto) 0.1 Abs Immat Gran (auto) 0.05 H Absolute Neuts (auto) 8.0 Absolute Nucleated RBC 0.000 Nucleated RBC % (auto) 0.0 Smear Tech's Comments VERIFIED Anion Gap 16 Estim Creat Clear Calc 55.8 Estimated GFR > 60 Random Glucose 104 Lactic Acid Calcium 10.3 H D Magnesium 2.5 Total Bilirubin 1.2 H Direct Bilirubin 0.4 AST 21 ALT 21 Alkaline Phosphatase 97 Total Protein 8.4 H Albumin 4.5 Urine Color Yellow Urine Appearance Clear Urine pH 6.0 Ur Specific [place] 1.015 Urine Protein 100 (2+) H Urine Glucose (UA) Negative Urine Ketones Trace Urine Blood Negative Urine Nitrite Negative Ur Leukocyte Esterase Small (1+) H Urine RBC 0-2 Urine WBC 11-20 H Ur Squamous Epith Cells 3-5 Urine Bacteria None Seen Hyaline Casts 0-2 06/22/23 19:48 MCV MCH MCHC RDW Plt Count MPV Immature Gran % (Auto) Neut % (Auto) Lymph % (Auto) [place] % (Auto) Eos % (Auto) Baso % (Auto) Lymph # (Auto) [place] # (Auto) Eos # (Auto) Baso # (Auto) Abs Immat Gran (auto) Absolute Neuts (auto) Absolute Nucleated RBC Nucleated RBC % (auto) Smear Tech's Comments Anion Gap Estim Creat Clear Calc Estimated GFR Random Glucose Lactic Acid 0.9 Calcium Magnesium Total Bilirubin Direct Bilirubin AST ALT Alkaline Phosphatase Total Protein Albumin Urine Color Urine Appearance Urine pH Ur Specific [place] Urine Protein Urine Glucose (UA) Urine Ketones Urine Blood Urine Nitrite Ur Leukocyte Esterase Urine RBC Urine WBC Ur Squamous Epith Cells Urine Bacteria Hyaline Casts Imaging Radiologist's Impressions: Impressions Abdomen/Pelvis CT 06/22/23 18:34 IMPRESSION: 1. ACUTE DIVERTICULITIS of the descending colon. 2. Hepatic steatosis unchanged. 3. No obstructing calculus Fleischner guidelines were followed. Assessment and Plan (1) Diverticulitis: Status: Acute Plan 53-year-old female past medical history of hypothyroidism comes in with abdominal pain found to have acute diverticulitis # acute diverticulitis - with leukocytosis - poor oral intake - will treat with IV antibiotics - follow cultures # hypothyroidism - continue levothyroxine # hypertension - soft - hold antihypertensives at this time, resume when blood pressure more stable DVT prophylaxis: Lovenox Given patient's need for acute antibiotics IV as she does not tolerate p.o. intake patient require minimum 2 nights inpatient hospital stay for further management and monitor Time Spent With Patient Time: Total time managing care of this patient today ____ minutes. Quality Stroke Does the patient have a stroke diagnosis?: No VTE Prior VTE?: No VTE Risk Level:: Medical - moderate - high VTE Device Contraindication: Treatment Not Indicated VTE Drug Contraindication: N/A - Med Ordered
[2023-06-22] MEDS: levoFLOXacin/D5W 750 MG/150 ML PIGGYBACK 100 MG IV (22:40)
[2023-06-22] MEDS: Lactated Ringers 1,000 ML 100 ML IVCONT (22:40)
[2023-06-22] MEDS: metroNIDAZOLE/NS 500 MG/100 ML PIGGYBACK 100 MG IV (22:40)
[2023-06-22 23:34] VITALS: BP 111/70; PULSE 75; RESP 18; TEMP 36.1; O2SAT 98
[2023-06-23] MEDS: ondansetron HCL 4 MG/2 ML VIAL IVPUSH (00:39)
[2023-06-23] MEDS: 0.9 % Sodium Chloride Flush 3 ML SYRINGE IVFLUSH (00:41)
--- NOTE | 2023-06-23 00:49 | PC.NURSE ---
Patient arrived from main ED to ED overflow ~2330 on 06/22. Pt is Surinamese speaking only, installation manager utilized. VSS, pt denied pain, nausea, offered no complaints on arrival. Approx 00:30 pt had two episodes of nausea with vomiting liquid bile. Abdomen soft, round, tender to palpation right abdomen. +BSx4. Prn zofran given with +effect. Pt continues to deny pain. Covering Dr. Rocha notified, diet orders changed from clears to NPO. Patient educated on meds, changes and plan of care with questions answers while installation manager present. LR infusing as ordered. 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
[2023-06-23 05:26] VITALS: BP 98/59; PULSE 73; RESP 18; TEMP 36; O2SAT 96
[2023-06-23] MEDS: Levothyroxine Sodium 75 MCG TABLET PO (05:36)
[2023-06-23 05:58] LABS: MANUAL DIFF FLAG NO
[2023-06-23 06:05] LABS: Basophils Absolute Auto 0.1 X10*3/uL (0.0-0.2); Basophils Percent Auto 0.7 % (0-2); Eosinophils Absolute Auto 0.1 X10*3/uL (0.0-0.4); Eosinophils Percent Auto 0.6 % (0-4); Hematocrit 32.3 % (37.0-47.0); Hemoglobin 10.4 g/dl (12.0-16.0); Imm Gran Abs Auto 0.03 X10*3/uL (0.00-0.03); Imm Gran Pct Auto 0.4 % (0.0-0.4); Lymphocytes Absolute Auto 1.8 X10*3/uL (1.2-4.9); Lymphocytes Percent Auto 21.5 % (20-40); Mean Corpuscular HGB Conc 32.2 g/dl (31.0-35.0); Mean Corpuscular Hemoglobin 28.1 pg (27.0-33.0); Mean Corpuscular Volume 87.3 fL (80.0-98.0); Mean Platelet Volume 13.1 fL (9.4-12.3); Monocytes Absolute Auto 0.5 X10*3/uL (0.1-1.2); Monocytes Percent Auto 5.8 % (2-11); Neutrophils Absolute Auto 5.9 x10*3/uL (2.0-8.3); Platelet Count 159 X10*3/uL (160-400); Red Cell Distribution Width 13.2 % (11.0-16.0); White Blood Count 8.3 X10*3/uL (4.8-10.8)
[2023-06-23 06:19] LABS: Anion Gap 12 (12-20); Blood Urea Nitrogen 11 mg/dL (9-16); Calcium 9.2 mg/dL (8.4-10.2); Carbon Dioxide 23 mmol/L (22-29); Chloride 107 mmol/L (96-108); Creatinine Clr Calc Pharmacy 63.1; Estimated Glomerular Filt Rate > 60; Glucose Random 107 mg/dL (60-115); Potassium 4.6 mmol/L (3.3-5.1); Sodium 137 mmol/L (135-145)
--- NOTE | 2023-06-23 06:42 | PC.NURSE ---
Assumed care ~23:30 on arrival to ED overflow from main ED. Pt awaiting admit bed on unit, here for acute diverticulitis. A&Ox4. Somali speaking only, brazer helper induction utilized. Pt denies pain, refuses offered pain meds. Patient appears comfortable resting in bed. Breathing is even and unlabored without distress. VSS. No further episodes of nausea/vomiting since prn zofran was given after arrival.
--- NOTE | 2023-06-23 07:26 | P.PNIM_ITS ---
Subjective Subjective Date of Service: 06/24/23 Interval History: f/u recurent acute diverticulitis interval history: pain is much improved Physical Exam Vital Signs: Vital Signs: Last Vital Signs Temp 96.8 F 06/23/23 05:26 Pulse 73 06/23/23 05:26 Resp 18 06/23/23 05:26 BP 98/59 L 06/23/23 05:26 Pulse Ox 96 06/23/23 05:26 O2 Del Method Room Air 06/23/23 05:26 BMI result Body Mass Index 25.1 Const: Other: General: AO X 3, no acute distress Resp: CTA bilateral CVS: S1,S2,RRR GI: +BS, NT, no distention Skin: No rash Neuro: motor grossly intact Psych: appropriate affect Objective Data Active Medications Acetaminophen (Acetaminophen 325 Mg Tablet) 650 mg PO Q6H PRN PRN Reason: Pain, Mild (Pain Scale 1-3) Bisacodyl (Bisacodyl 5 Mg Tablet.Dr) 10 mg PO BEDTIME [facility] Docusate Sodium (Docusate Sodium 100 Mg Capsule) 100 mg PO BEDTIME [facility] Enoxaparin Sodium (Enoxaparin Sodium 40 Mg/0.4 Ml Syringe) 40 mg SUBCUT Q24H [facility] Metronidazole (Flagyl) 500 mg in 100 mls @ 100 mls/hr IV Q8H [facility] Last Infusion: 06/22/23 23:41 Dose: 0 mls/hr Documented By: RICO Lactated Ringer's (Lr) 1,000 mls @ 100 mls/hr IVCONT .Q10H [facility] Last Admin: 06/22/23 22:40 Dose: 100 mls/hr Documented By: WILLY Levofloxacin (Levaquin) 750 mg in 150 mls @ 100 mls/hr IV Q24H [facility] Last Infusion: 06/23/23 00:15 Dose: 0 mls/hr Documented By: RIOC Levothyroxine Sodium (Levothyroxine Sodium 75 Mcg Tablet) 75 mcg PO DAILY@0600 [facility] Last Admin: 06/23/23 05:36 Dose: 75 mcg Documented By: RICO Ondansetron HCl (Ondansetron Hcl 4 Mg/2 Ml Vial) 4 mg IVPUSH Q8H PRN PRN Reason: Nausea and Vomiting Last Admin: 06/23/23 00:39 Dose: 4 mg Documented By: RICO Oxycodone HCl (Oxycodone Hcl Immed Release 5 Mg Tablet) 5 mg PO Q6H PRN PRN Reason: Pain, Severe (Pain Scale 7-10) Sodium Chloride (0.9 % Sodium Chloride Flush 3 Ml Syringe) 3 ml IVFLUSH QSHIFT [facility] Last Admin: 06/23/23 00:41 Dose: 3 ml Documented By: RICO Labs 06/23/23 05:25 06/23/23 05:25 Labs: Laboratory Results - last 24 hr 06/22/23 06/22/23 06/22/23 17:48 17:48 17:48 MCV 87.8 MCH 28.0 MCHC 31.9 RDW 13.4 Plt Count 192 D MPV 13.1 H Immature Gran % (Auto) 0.4 Neut % (Auto) 66.2 Lymph % (Auto) 24.0 [place] % (Auto) 8.0 Eos % (Auto) 0.5 Baso % (Auto) 0.9 Lymph # (Auto) 2.9 [place] # (Auto) 1.0 Eos # (Auto) 0.1 Baso # (Auto) 0.1 Abs Immat Gran (auto) 0.05 H Absolute Neuts (auto) 8.0 Absolute Nucleated RBC 0.000 Nucleated RBC % (auto) 0.0 Smear Tech's Comments VERIFIED Anion Gap 16 Estim Creat Clear Calc 55.8 Estimated GFR > 60 Random Glucose 104 Lactic Acid Calcium 10.3 H D Magnesium 2.5 Total Bilirubin 1.2 H Direct Bilirubin 0.4 AST 21 ALT 21 Alkaline Phosphatase 97 Total Protein 8.4 H Albumin 4.5 Urine Color Yellow Urine Appearance Clear Urine pH 6.0 Ur Specific [place] 1.015 Urine Protein 100 (2+) H Urine Glucose (UA) Negative Urine Ketones Trace Urine Blood Negative Urine Nitrite Negative Ur Leukocyte Esterase Small (1+) H Urine RBC 0-2 Urine WBC 11-20 H Ur Squamous Epith Cells 3-5 Urine Bacteria None Seen Hyaline Casts 0-2 06/22/23 06/23/23 06/23/23 19:48 05:25 05:25 MCV 87.3 MCH 28.1 MCHC 32.2 RDW 13.2 Plt Count 159 L MPV 13.1 H Immature Gran % (Auto) 0.4 Neut % (Auto) 71.0 Lymph % (Auto) 21.5 [place] % (Auto) 5.8 Eos % (Auto) 0.6 Baso % (Auto) 0.7 Lymph # (Auto) 1.8 [place] # (Auto) 0.5 Eos # (Auto) 0.1 Baso # (Auto) 0.1 Abs Immat Gran (auto) 0.03 Absolute Neuts (auto) 5.9 Absolute Nucleated RBC 0.000 Nucleated RBC % (auto) 0.0 Smear Tech's Comments Anion Gap 12 Estim Creat Clear Calc 63.1 Estimated GFR > 60 Random Glucose 107 Lactic Acid 0.9 Calcium 9.2 D Magnesium Total Bilirubin Direct Bilirubin AST ALT Alkaline Phosphatase Total Protein Albumin Urine Color Urine Appearance Urine pH Ur Specific [place] Urine Protein Urine Glucose (UA) Urine Ketones Urine Blood Urine Nitrite Ur Leukocyte Esterase Urine RBC Urine WBC Ur Squamous Epith Cells Urine Bacteria Hyaline Casts Assessment and Plan (1) Diverticulitis: Status: Acute Plan 53-year-old female past medical history of hypothyroidism comes in with abdominal pain found to have acute diverticulitis # acute, recurent diverticulitis, improving, WBC nl, continue IV (Levaquin and Flagy 06/22), surgery consult d/t recurnet nature, IVF and advance diet slowly # hypothyroidism - continue levothyroxine # hypertension, BP on low side, hold meds DVT prophylaxis: Lovenox need for inpt: Acute diverticulitis needing IV ABX Time Spent With Patient Time: Total time managing care of this patient today ____ minutes. Quality Stroke Does the patient have a stroke diagnosis?: No VTE Prior VTE?: No VTE Risk Level:: Medical - moderate - high VTE Device Contraindication: Treatment Not Indicated VTE Drug Contraindication: N/A - Med Ordered
[2023-06-23] MEDS: metroNIDAZOLE/NS 500 MG/100 ML PIGGYBACK 100 MG IV ×3 (07:47→21:47)
[2023-06-23] MEDS: Enoxaparin Sodium 40 MG/0.4 ML SYRINGE SUBCUT (07:47)
[2023-06-23] MEDS: Lactated Ringers 1,000 ML 100 ML IVCONT ×2 (08:46→19:00)
--- NOTE | 2023-06-23 13:13 | P.CONGS_ITS ---
History of Present Illness Consult details Consult date: 06/23/23 Narrative: Patient is a 50-year-old female presents here with a recurrent bout of diverticulitis. She has had at least 3 or 4 prior episodes of this. This most recent event is been about 3 days of progressively worsening left lower quadrant pain. Because of progression of symptoms, she presented emergency department fo r further evaluation. Workup including CT scan demonstrated findings consistent with recurrent diverticulitis. Patient states she a colonoscopy approximately 2 years ago. Chart was reviewed patient evaluated. Present, patient has had marked improvement of her symptoms. [facility] Past Medical History Medical History Endometrial hyperplasia GERD (gastroesophageal reflux disease) Heartburn Hemorrhoids with complication Hypothyroidism Kidney stone Skin lesion of back Vitamin D deficiency Family History Family History Father Hypertension Respiratory failure Mother Pancreatic cancer Surgical History Surgical History History of surgery Hx of colonoscopy Hx of esophagogastroduodenoscopy Hx of unilateral oophorectomy Tubal ligation status Social History Social History Household Members: Spouse Housing: House Alcohol intake: never Patient Tobacco Use Status: Never used Tobacco Smoked in Last 30 Days: No Second Hand Smoke Exposure: No Use of substances other than those prescribed or required for medical reasons: No Advance Directives: No Advance Directives Information Provided: No Nutrition Risks: No Nutritional Risk Patient : No service: No Current occupational status: employed Current occupation: [employer] program Sexual orientation: Straight/Heterosexual Gender identity: Female Meds Allergies Allergy/AdvReac Type Severity Reaction Status Date / Time ceftriaxone Allergy Severe Difficulty Verified 06/15/23 07:55 Breathing magnesium hydroxide Allergy Mild Rash Verified 06/15/23 07:55 [From Milk of Magnesia] Active Medications: Current Medications Acetaminophen (Acetaminophen 325 Mg Tablet) 650 mg PO Q6H PRN PRN Reason: Pain, Mild (Pain Scale 1-3) Bisacodyl (Bisacodyl 5 Mg Tablet.Dr) 10 mg PO BEDTIME [facility] Docusate Sodium (Docusate Sodium 100 Mg Capsule) 100 mg PO BEDTIME [facility] Enoxaparin Sodium (Enoxaparin Sodium 40 Mg/0.4 Ml Syringe) 40 mg SUBCUT Q24H [facility] Last Admin: 06/23/23 07:47 Dose: 40 mg Metronidazole (Flagyl) 500 mg in 100 mls @ 100 mls/hr IV Q8H [facility] Last Infusion: 06/23/23 09:39 Dose: Infused Lactated Ringer's (Lr) 1,000 mls @ 100 mls/hr IVCONT .Q10H [facility] Last Admin: 06/23/23 08:46 Dose: 100 mls/hr Levofloxacin (Levaquin) 750 mg in 150 mls @ 100 mls/hr IV Q24H [facility] Last Infusion: 06/23/23 00:15 Dose: Infused Levothyroxine Sodium (Levothyroxine Sodium 75 Mcg Tablet) 75 mcg PO DAILY@0600 [facility] Last Admin: 06/23/23 05:36 Dose: 75 mcg Ondansetron HCl (Ondansetron Hcl 4 Mg/2 Ml Vial) 4 mg IVPUSH Q8H PRN PRN Reason: Nausea and Vomiting Last Admin: 06/23/23 00:39 Dose: 4 mg Oxycodone HCl (Oxycodone Hcl Immed Release 5 Mg Tablet) 5 mg PO Q6H PRN PRN Reason: Pain, Severe (Pain Scale 7-10) Sodium Chloride (0.9 % Sodium Chloride Flush 3 Ml Syringe) 3 ml IVFLUSH QSHIFT [facility] Last Admin: 06/23/23 08:49 Dose: Not Given Home Medications Medication Instructions Recorded Confirmed Last Taken Type lisinopril 10 mg tablet 10 mg PO DAILY 09/14/22 06/22/23 06/22/23 History levothyroxine 75 mcg tablet 1 tab PO DAILY 12/23/22 06/22/23 06/22/23 History acetaminophen 325 mg tablet 650 mg PO Q6H PRN pain/fever 06/22/23 06/22/23 Unknown History Physical Exam 2 Vital Signs: Vital Signs: Last Vital Signs Temp 96.8 F 06/23/23 05:26 Pulse 73 06/23/23 05:26 Resp 18 06/23/23 05:26 BP 98/59 L 06/23/23 05:26 Pulse Ox 96 06/23/23 05:26 O2 Del Method Room Air 06/23/23 05:26 BMI result Body Mass Index 25.1 GI: Other: Abdomen soft, mildly corpulent, minimal left lower quadrant tenderness but without guarding, rebound, or rigidity. Results Labs 06/23/23 05:25 06/23/23 05:25 Labs: Abnormal lab results 06/22/23 06/22/23 06/22/23 Range/Units 17:48 17:48 17:48 WBC 12.1 H (4.8-10.8) X10*3/uL RBC (4.20-5.50) X10*6/uL Hgb (12.0-16.0) g/dl Hct (37.0-47.0) % Plt Count (160-400) X10*3/uL MPV 13.1 H (9.4-12.3) fL Abs Immat Gran (auto) 0.05 H (0.00-0.03) X10*3/uL Calcium 10.3 H D (8.4-10.2) mg/dL Total Bilirubin 1.2 H (0.0-1.0) mg/dL Total Protein 8.4 H (6.5-8.0) g/dL Urine Protein 100 (2+) H (Neg-Trace) mg/dL Ur Leukocyte Esterase Small (1+) H (Negative) Urine WBC 11-20 H (0-5) /HPF 06/23/23 Range/Units 05:25 WBC (4.8-10.8) X10*3/uL RBC 3.70 L (4.20-5.50) X10*6/uL Hgb 10.4 L (12.0-16.0) g/dl Hct 32.3 L (37.0-47.0) % Plt Count 159 L (160-400) X10*3/uL MPV 13.1 H (9.4-12.3) fL Abs Immat Gran (auto) (0.00-0.03) X10*3/uL Calcium (8.4-10.2) mg/dL Total Bilirubin (0.0-1.0) mg/dL Total Protein (6.5-8.0) g/dL Urine Protein (Neg-Trace) mg/dL Ur Leukocyte Esterase (Negative) Urine WBC (0-5) /HPF Short CBC 06/22/23 06/23/23 Range/Units 17:48 05:25 WBC 12.1 H 8.3 (4.8-10.8) X10*3/uL Hgb 12.6 10.4 L (12.0-16.0) g/dl Hct 39.5 32.3 L (37.0-47.0) % Plt Count 192 D 159 L (160-400) X10*3/uL BMP 06/22/23 06/23/23 17:48 05:25 Sodium 139 137 Potassium 4.5 4.6 Chloride 102 107 Carbon Dioxide 26 23 BUN 10 11 Creatinine 0.95 0.84 Calcium 10.3 H D 9.2 D Liver Function 06/22/23 Range/Units 17:48 Total Bilirubin 1.2 H (0.0-1.0) mg/dL Direct Bilirubin 0.4 (0.0-0.5) mg/dL AST 21 (5-31) U/L ALT 21 (0-31) U/L Alkaline Phosphatase 97 (39-117) U/L Albumin 4.5 (3.5-5.0) g/dL Urine 06/22/23 Range/Units 17:48 Urine Color Yellow Urine Appearance Clear Urine pH 6.0 (5.0-9.0) Ur Specific [place] 1.015 (1.005-1.025) Urine Protein 100 (2+) H (Neg-Trace) mg/dL Urine Glucose (UA) Negative (Negative) mg/dL All other labs normal. Assessment and Plan (1) Diverticulitis: Status: Acute Plan At present, patient is clinically stable. Recommendation would be to advance diet as tolerated, and continue IV with conversion to p.o. antibiotics. I discussed with the patient through an molasses and caramel operator that the she has had recurrent multiple bouts of this and consideration should be made for elective resection. In the meantime, further interventions and studies will be directed by the patient's clinical course. Time Spent With Patient Time: Total time managing care of this patient today ____ minutes. Procedures Date of Service Date of Service: 06/23/23
[2023-06-23 13:53] VITALS: BP 129/77; PULSE 74; RESP 18; TEMP 36.1; O2SAT 98
[2023-06-23 15:26] VITALS: BP 136/79; PULSE 80; RESP 20; TEMP 36; O2SAT 97
[2023-06-23 19:53] VITALS: BP 112/74; PULSE 84; RESP 20; TEMP 36; O2SAT 97
[2023-06-23] MEDS: Docusate Sodium 100 MG CAPSULE PO (21:47)
[2023-06-23] MEDS: bisacodyL 5 MG TABLET.DR 10 MG PO (21:47)
[2023-06-23] MEDS: levoFLOXacin/D5W 750 MG/150 ML PIGGYBACK 100 MG IV (23:05)
[2023-06-24] MEDS: ondansetron HCL 4 MG/2 ML VIAL IVPUSH (01:13)
[2023-06-24 03:28] VITALS: BP 117/67; PULSE 74; RESP 18; TEMP 36.5; O2SAT 98
[2023-06-24] MEDS: metroNIDAZOLE/NS 500 MG/100 ML PIGGYBACK 100 MG IV (05:47)
[2023-06-24] MEDS: Lactated Ringers 1,000 ML 100 ML IVCONT (05:48)
[2023-06-24] MEDS: Levothyroxine Sodium 75 MCG TABLET PO (05:48)
--- NOTE | 2023-06-24 07:27 | P.DS_ITS ---
DS: Providers Provider Date of Service: 06/24/23 Date of admission: 06/22/23 22:17 Primary care physician: [facility] Consults: 06/23/23 07:29 Consult to General Surgery Routine Consulting Provider: [facility] [place] Surgeons Reason for consultation: REcurrent diverticulitis DS: Diagnosis Discharge Diagnosis (1) Diverticulitis: Status: Acute DS: Summary Hospital Course Hospital Course: Chief Complaint: abd pain ?Icelandic-speaking, history is obtained with the help of an stoker installation mechanic ?53-year-old female past medical history of hypothyroidism, hypertension comes into the hospital with complaints of left lower quadrant abdominal pain.? Pain started 3 days prior, intermittent, 08/23, associated with decreased oral intake, constipation, some chills.? Patient reports that her pain got worse that is why prompted her to come to the hospital.? Patient denies any chest pain, no shortness of breath, no urinary symptoms and no lower extremity edema.? No numbness tingling weakness.? No headache or change in vision On arrival to the ED patient hemodynamically stable Labs are significant for? WBC count of 12.1, uterus shows some leukocyte Estrace, and WBC Abdominal pelvic CT shows acute diverticulitis of the descending colon, ?patient will be admitted for further management as she is unable to? tolerate p.o. intake Hospital course: Patient presented yet again with an episode of acute diverticulitis without perforation, was admitted and treated with IV Levaquin and Flagyl with rapid improvement, presently without pain, diet has been advanced to regular which she is tolerating. Surgery advises possible elective colectomy in the future. Patient will be discharged with oral Levaquin and Flagyl for 8 days for total of 10 days. Time Spent with Patient Time attestation: Total time managing care of this patient today ____ minutes. Discharge coordination time: Greater than 30 minutes Quality: Safe Use of Opioids Does Pt have an Active Cancer Diagnosis on the Problem List?: No Quality: Stroke Does the patient have a stroke diagnosis?: No Physical Exam Vital Signs: Vital Signs: Last Vital Signs Temp 97.7 F 06/24/23 03:28 Pulse 74 06/24/23 03:28 Resp 18 06/24/23 03:28 BP 117/67 06/24/23 03:28 Pulse Ox 98 06/24/23 03:28 O2 Del Method Room Air 06/24/23 03:28 BMI result Body Mass Index 25.1 DS: Data Data Completed and Pending Labs on day of discharge: Preliminary micro results at discharge 06/22/23 19:48 Blood Culture - Preliminary Blood - Venous No growth after 24 hours. 06/22/23 19:48 Blood Culture - Preliminary Blood - Venous No growth after 24 hours. 06/22/23 Unknown Urine Culture - Preliminary Urine clean catch - Urine galo top Culture too young to evaluate. Discharge Plan Discharge Anticipated Discharge Date/Time: 06/24/23 07:20 Patient Disposition: Home, Self-Care Discharge Diagnosis: Acute diverticulitis Referrals: [facility] [Primary Care Provider] - 1 Week Kushal Araya MD [Physician] - 1 Week Discharge Medications: New levofloxacin 750 mg tablet 750 mg PO DAILY 7 Days Qty: 8 0RF Rx Instructions: next dose / metronidazole 500 mg tablet 500 mg PO Q8H 8 Days Qty: 24 0RF Continued levothyroxine 75 mcg tablet 1 tab PO DAILY acetaminophen 325 mg Tablet 650 mg PO Q6H PRN (Reason: pain/fever) bisacodyl [Dulcolax (bisacodyl)] 5 mg tablet,delayed release (DR/EC) 10 mg PO BEDTIME Qty: 180 4RF docusate sodium 100 mg capsule 100 mg PO BEDTIME Qty: 90 3RF lisinopril 10 mg tablet 10 mg PO DAILY Diet: Advance to usual diet Activity on Discharge: As tolerated Stand Alone Forms: Patient Portal Discharge page Care Plan Goals: Recovery from diverticultis Health Concerns: Recurrent diverticulitis Plan of Treatment: Take Levaquin and Flagyl as directed and follow up with your doctor within a week Assessment: As above
[2023-06-24 07:37] VITALS: BP 125/66; PULSE 65; RESP 18; TEMP 36; O2SAT 97
--- NOTE | 2023-06-24 10:19 | P.PNGS_ITS ---
Subjective Subjective Date of Service: 06/24/23 Interval history: patient has almost complete resolution of her abdominal symptoms. Out of bed sitting in a chair. Physical Exam Vital Signs: Vital Signs: Last Vital Signs Temp 96.8 F 06/24/23 07:37 Pulse 65 06/24/23 07:37 Resp 18 06/24/23 07:37 BP 125/66 06/24/23 07:37 Pulse Ox 97 06/24/23 07:37 O2 Del Method Room Air 06/24/23 07:37 BMI result Body Mass Index 25.1 GI: Other: Abdomen soft, benign Objective Data Active Medications Acetaminophen (Acetaminophen 325 Mg Tablet) 650 mg PO Q6H PRN PRN Reason: Pain, Mild (Pain Scale 1-3) Bisacodyl (Bisacodyl 5 Mg Tablet.Dr) 10 mg PO BEDTIME [facility] Last Admin: 06/23/23 21:47 Dose: 10 mg Documented By: ILNDSAY Docusate Sodium (Docusate Sodium 100 Mg Capsule) 100 mg PO BEDTIME [facility] Last Admin: 06/23/23 21:47 Dose: 100 mg Documented By: LINDSAY Enoxaparin Sodium (Enoxaparin Sodium 40 Mg/0.4 Ml Syringe) 40 mg SUBCUT Q24H [facility] Last Admin: 06/24/23 09:04 Dose: Not Given Documented By: ALYSIA Non-Admin Reason: Patient Refused Metronidazole (Flagyl) 500 mg in 100 mls @ 100 mls/hr IV Q8H [facility] Last Infusion: 06/24/23 06:53 Dose: 0 mls/hr Documented By: LINDSAY Lactated Ringer's (Lr) 1,000 mls @ 100 mls/hr IVCONT .Q10H [facility] Last Infusion: 06/24/23 06:54 Dose: 100 mls/hr Documented By: LINDSAY Levofloxacin (Levaquin) 750 mg in 150 mls @ 100 mls/hr IV Q24H [facility] Last Infusion: 06/24/23 00:50 Dose: 0 mls/hr Documented By: LINDSAY Levothyroxine Sodium (Levothyroxine Sodium 75 Mcg Tablet) 75 mcg PO DAILY@0600 [facility] Last Admin: 06/24/23 05:48 Dose: 75 mcg Documented By: LINDSAY Ondansetron HCl (Ondansetron Hcl 4 Mg/2 Ml Vial) 4 mg IVPUSH Q8H PRN PRN Reason: Nausea and Vomiting Last Admin: 06/24/23 01:13 Dose: 4 mg Documented By: LEONELA Oxycodone HCl (Oxycodone Hcl Immed Release 5 Mg Tablet) 5 mg PO Q6H PRN PRN Reason: Pain, Severe (Pain Scale 7-10) Sodium Chloride (0.9 % Sodium Chloride Flush 3 Ml Syringe) 3 ml IVFLUSH QSHIFT [facility] Last Admin: 06/24/23 09:03 Dose: Not Given Documented By: ALYSIA Non-Admin Reason: IV Running Labs 06/23/23 05:25 06/23/23 05:25 Microbiology Microbiology Results: Microbiology 06/22/23 19:48 Blood Culture - Preliminary Blood - Venous No growth after 24 hours. 06/22/23 19:48 Blood Culture - Preliminary Blood - Venous No growth after 24 hours. 06/22/23 Unknown Urine Culture - Preliminary Urine clean catch - Urine galo top Culture too young to evaluate. Procedures Date of Service Date of Service: 06/24/23 Progress Note: A&P Assessment and plan (1) Diverticulitis: Status: Acute Plan clinically improving diverticulitis. Will follow-up p.r.n.. Patient should follow-up in surgical clinic In about a week's time. Time Spent With Patient Time: Total time managing care of this patient today ____ minutes. Quality Stroke Does the patient have a stroke diagnosis?: No VTE Prior VTE?: No VTE Risk Level:: Medical - moderate - high VTE Device Contraindication: Treatment Not Indicated VTE Drug Contraindication: N/A - Med Ordered
--- NOTE | 2023-06-24 13:39 | MHC.CM.PN ---
CM MET WITH PT WITH THE ASSISTANCE OF A TECHNICAL SERVICES REP PT REPORTS SHE LIVES ALONE AND IS INDEPENDENT WITH CARE PT HAS NO DME AND NO SERVICES COPY OF HCP REQUESTED PCP AT [facility] PT WILL DC HOME TODAY WITH NO SERVICES [facility] [place] [facility]
== END 2023-06-24 12:56 | disposition home or self-care (01) | DRG 392 ==
LOC: HO.ED 20:35 → HO.EDOVER 22:29 → HO.S3 06-23 12:39
PROVIDERS: Physician Assistant; Admitting Provider Internal Medicine; Emergency Provider Internal Medicine; PCP Internal Medicine Geriatric Medicine; Visit Provider Internal Medicine
DX: K57.32 Diverticulitis of large intestine without perforation or abscess without bleeding (principal); K21.9 Gastro-esophageal reflux disease without esophagitis; I10 Essential (primary) hypertension; E03.9 Hypothyroidism, unspecified; Z79.890 Hormone replacement therapy; Z79.899 Other long term (current) drug therapy
CPT/HCPCS: 36415; 74176; 80048; 80076; 81001; 83605; 83735; 85025; 87040; 87086; 87147; 99285; J1650; J1956; J2270; J2405; J2543

== ENCOUNTER → 2023-06-22 22:17 | Outpatient (BNV) | payer SELFPAY | PROVIDERS: Admitting Provider Internal Medicine; Emergency Provider Internal Medicine; Visit Provider Surgery | DX: K57.92 Diverticulitis of intestine, part unspecified, without perforation or abscess without bleeding (principal) | CPT/HCPCS: 99222; 99231 ==

== ENCOUNTER → 2023-06-22 22:17 | Outpatient (BNV) | payer SELFPAY | PROVIDERS: Admitting Provider Internal Medicine; Emergency Provider Internal Medicine; Visit Provider Internal Medicine | DX: K57.92 Diverticulitis of intestine, part unspecified, without perforation or abscess without bleeding (principal) | CPT/HCPCS: 99223; 99232; 99239 ==

== ENCOUNTER 2023-07-20 09:11 | Outpatient (AMB) | payer OTHER, SELFPAY ==
[2023-07-20 09:16] VITALS: BP 141/75; PULSE 87; BMI 25.5
--- NOTE | 2023-07-20 09:16 | A.OFFVIS_ITS ---
Intake Vital Signs 07/20/23 09:16 Height 5 ft 1 in Weight 135 lb BMI 25.5 BP 141/75 H Blood Pressure Location Rt brachial Position Sitting Pulse 87 Intake Visit Reasons: diverticulitis, 06[place]24/23 [facility] [place] follow up Intake Note: Patient referred for diverticulitis. ER visit in June. Denies pain. Reports normal BM with docusate sodium, bisacodyl. 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 According to the Patient, she has had at least 3 bouts requiring hospitalization. During the original consultation and again now I discussed with her that because of the chronicity/recurring nature of this, she should consider elective resection. Patient had colonoscopy approximately 5 and half years ago. She is tentatively scheduled for 1 tomorrow in fact. Chart was reviewed and patient evaluated [facility] Medical History Endometrial hyperplasia GERD (gastroesophageal reflux disease) Heartburn Hemorrhoids with complication Hypothyroidism Kidney stone Skin lesion of back Vitamin D deficiency Surgical History History of surgery Hx of colonoscopy Hx of esophagogastroduodenoscopy Hx of unilateral oophorectomy Tubal ligation status Family History Father Hypertension Respiratory failure Mother Pancreatic cancer Social History Household Members: Spouse Housing: House Do you presently have visiting nurse or other home services: No Alcohol intake: never Patient Tobacco Use Status: Never used Tobacco Second Hand Smoke Exposure: No service: No Current occupational status: employed Current occupation: [employer] program Sexual orientation: Straight/Heterosexual Gender identity: Female Female Reproductive History Menstrual Age of Menarche: 16 Physical Exam Vital Signs: Last Vital Signs Pulse 87 07/20/23 09:16 BP 141/75 H 07/20/23 09:16 BMI result Body Mass Index 25.5 Chest Other: Chest breath sounds bilaterally, HS 1 in 2 Other: Abdomen soft, mildly corpulent, benign Assessment & Plan Assessment & Plan (1) Diverticulitis large intestine: Code(s): K57.32 - Diverticulitis of large intestine without perforation or abscess without bleeding Plan I discussed with the patient the risks, benefits, alternatives of elective open sigmoid resection with primary anastomosis and unlikely chance of an ostomy or diverting ileostomy which included but not limited to bleeding, infection, recurrence of symptoms, numbness, pain, scar, bowel or bladder injury or leak and the patient wishes to proceed. All questions were answered Tomorrow's colonoscopy results will be reviewed. Meantime, this is uneventful, arrange we made for surgical day which is convenient for her. During the interim, should she have recurrence of her diverticulitis symptoms, she has been instructed to call the office or present to the ER. Coding Level of Care Code Est Pt Level 5 (34311) Diagnoses Diverticulitis large intestine K57.32
== END 2023-07-20 10:13 | disposition home or self-care (01) ==
PROVIDERS: PCP Internal Medicine Geriatric Medicine; Visit Provider Surgery
DX: K57.32 Diverticulitis of large intestine without perforation or abscess without bleeding (principal)
CPT/HCPCS: 99214

== ENCOUNTER → 2023-07-20 09:11 | Outpatient (BNVA) | payer OTHER, SELFPAY | PROVIDERS: PCP Internal Medicine Geriatric Medicine; Visit Provider Surgery | DX: K57.32 Diverticulitis of large intestine without perforation or abscess without bleeding (principal) | CPT/HCPCS: 99212 ==

== ENCOUNTER 2023-07-21 06:03 | Day surgery (SDC) | payer OTHER, SELFPAY ==
[2023-07-19 11:04] VITALS: BMI 25.3
--- NOTE | 2023-07-20 10:26 | P.CONAN_ITS ---
Documented by User: Lacie Johnston NP 07/20/23 10:26 HPI - Anesthesia Eval Consult details Narrative: 53yo F for Colonoscopy PMFSH Active Problems Active Problems: All Active Problems (Updated 06/23/23 @ 00:17 by Fabrizio Andres MD) Diverticulitis large intestine (Acute) Hydronephrosis (Acute) Recurrent UTI (Acute) Ureteral stricture, right (Acute) Diverticulitis (Acute) Hemorrhoids with complication (Acute) Chronic idiopathic constipation (Acute) Kidney stone (Acute) Complex cyst of left ovary (Acute) Well woman exam (Acute) Metrorrhagia (Acute) Vaginal discharge (Acute) UTI (urinary tract infection) (Acute) Microscopic hematuria (Acute) Vitamin D deficiency (Acute) Hypothyroidism (Acute) Past Medical History Medical History Endometrial hyperplasia GERD (gastroesophageal reflux disease) Heartburn Hemorrhoids with complication Hypothyroidism Kidney stone Skin lesion of back Vitamin D deficiency Family History Family History Father Hypertension Respiratory failure Mother Pancreatic cancer Surgical History Surgical History History of surgery Hx of colonoscopy Hx of esophagogastroduodenoscopy Hx of unilateral oophorectomy Tubal ligation status Social History Social History Household Members: Spouse Housing: House Do you presently have visiting nurse or other home services: No Alcohol intake: never Patient Tobacco Use Status: Never used Tobacco Second Hand Smoke Exposure: No service: No Current occupational status: employed Current occupation: [employer] Sexual orientation: Straight/Heterosexual Gender identity: Female Meds Allergies Allergy/AdvReac Type Severity Reaction Status Date / Time ceftriaxone Allergy Severe Difficulty Verified 07/20/23 09:19 Breathing magnesium hydroxide Allergy Mild Rash Verified 07/20/23 09:19 [From Milk of Magnesia] Home Medications Medication Instructions Recorded Confirmed Last Taken Type lisinopril 10 mg tablet 10 mg PO DAILY 09/14/22 06/22/23 06/22/23 History levothyroxine 75 mcg tablet 1 tab PO DAILY 12/23/22 06/22/23 06/22/23 History acetaminophen 325 mg tablet 650 mg PO Q6H PRN pain/fever 06/22/23 06/22/23 Unknown History Exam Exam Date and Time: July 20, 2023 1026 Height,Weight and Vital Signs: Height 5 ft 1 in Weight 60.781 kg Pertinent Lab Results Pertinent Lab Results: Laboratory Tests 06/23/23 06/23/23 05:25 05:25 WBC 8.3 Hgb 10.4 L Hct 32.3 L Plt Count 159 L Sodium 137 Potassium 4.6 Chloride 107 Carbon Dioxide 23 BUN 11 Creatinine 0.84 Assessment and Plan Assessment Anesthesia Assessment: Chart Reviewed Documented by User: Enrico Fontaine MD 07/21/23 07:33 PMFSH Past Medical History Medical History Endometrial hyperplasia GERD (gastroesophageal reflux disease) Heartburn Hemorrhoids with complication Hypothyroidism Kidney stone Skin lesion of back Vitamin D deficiency Family History Family History Father Hypertension Respiratory failure Mother Pancreatic cancer Family history of problems with anesthesia: No Surgical History Surgical History History of surgery Hx of colonoscopy Hx of esophagogastroduodenoscopy Hx of unilateral oophorectomy Tubal ligation status History of Problems with Anesthesia: No Social History Social History Household Members: Spouse Housing: House Do you presently have visiting nurse or other home services: No Alcohol intake: never Patient Tobacco Use Status: Never used Tobacco Second Hand Smoke Exposure: No service: No Current occupational status: employed Current occupation: [employer] program Sexual orientation: Straight/Heterosexual Gender identity: Female Meds Allergies Allergy/AdvReac Type Severity Reaction Status Date / Time ceftriaxone Allergy Severe Difficulty Verified 07/20/23 09:19 Breathing magnesium hydroxide Allergy Mild Rash Verified 07/20/23 09:19 [From Milk of Magnesia] Home Medications Medication Instructions Recorded Confirmed Last Taken Type lisinopril 10 mg tablet 10 mg PO DAILY 09/14/22 06/22/23 06/22/23 History levothyroxine 75 mcg tablet 1 tab PO DAILY 12/23/22 06/22/23 06/22/23 History acetaminophen 325 mg tablet 650 mg PO Q6H PRN pain/fever 06/22/23 06/22/23 Unknown History Exam Airway Mallampati Class: II TM Dist: <=3cm Neck ROM: Full Heart: ok Lungs: ok Assessment and Plan Assessment Anesthesia Assessment: Anesthesia Plan Discussed Final Anesthetic Review Family History of Problems with Anesthesia: No History of Problems with Anesthesia: No NPO: Yes ASA Class: II Final Preanesthetic Review: No Changes in Pt Med Stat, Meds/Allgs Chart Reviewed, Consent Obtained/Reviewed and Anes Risks/Benef Reviewed Patient Risk: Low Procedure Risk: Low Anesthetic Plan Anesthetic Plan: MAC: and Agree w/ Assess. and Plan Disposition: Standard PACU
[2023-07-21 06:52] VITALS: BP 104/57; PULSE 71; RESP 18; TEMP 36.2; O2SAT 98
[2023-07-21] MEDS: Lactated Ringers 1,000 ML 100 ML IVCONT (06:57)
--- NOTE | 2023-07-21 07:21 | MHC.SHP ---
Pre-Procedural Eval Section A Date of Service: 07/21/23 The patient is an INPATIENT: No The History & Physical has been completed within 30 days and I have reviewed it.: No Section B Chief Complaint: Screening, family history of colon cancer Relevant Family History (Specify if Yes): Yes Relevant Social History: None Present Medications: see Short Stay Collaborative assessment Medical History: Significant History (Endometrial hyperplasia GERD (gastroesophageal reflux disease) Heartburn Hemorrhoids with complication Hypothyroidism Kidney stone) History of Previous Operations: Relevant previous surgery/procedure and date(s) (History of surgery Hx of colonoscopy Hx of esophagogastroduodenoscopy Hx of unilateral oophorectomy Tubal ligation status) Allergies: Allergies Allergy/AdvReac Type Severity Reaction Status Date / Time ceftriaxone Allergy Severe Difficulty Verified 07/20/23 09:19 Breathing magnesium hydroxide Allergy Mild Rash Verified 07/20/23 09:19 [From Milk of Magnesia] Review of Systems Sugical H&P ROS: Negative: Constitution, Cardiovascular, Respiratory and Gastrointestinal Exam Surgical H&P Exam: Normal: Heart, Normal: Lungs, Normal: Extremities and Normal: Abdomen Plan Diagnosis/Plan: Unchanged I have reviewed the history and physical and performed a pertinent physical examination on my patient. No changes have occurred unless specified. Time Spent With Patient Time: Total time managing care of this patient today ____ minutes.
--- NOTE | 2023-07-21 07:41 | P.OP_ITS ---
Operative Note Operative Note Date of Service: 07/21/23 Narrative: COLONOSCOPY TILL CECUM WITH BIOPSIES AND SNARE POLYPECTOMY Pre-op diagnosis: Colon cancer screening, family history of colon cancer Post-op diagnosis:? Colon polyps, diverticulosis, hemorrhoids Endoscopist:? Miguel Ángel Lopez MD Anesthesia:?MAC Consent: Indications for the procedure and potential complications of bleeding, perforation, reaction to medications and missed diagnosis were discussed with the patient with the help of a Tajik maintenance department technician and informed consent was obtained. Instrument: Olympus PCF H 190 L variable stiffness pediatric colonoscope Monitoring: Vital signs and clinical assessment, intermittent blood pressure monitoring, continuous EKG monitoring, Pulse oximetry and Carbon Dioxide monitoring were done throughout the procedure. Please see anesthesia flowsheet. Colon withdrawl time was 22 minutes. Procedure: The patient was placed in the left lateral decubitis position and pre-procedure medications were administered. After a digital rectal examination of the ano-rectum, the video colonoscope was inserted into the rectum and advanced through the colon to the cecum. The colonoscope was slowly withdrawn in a retrograde panoramic fashion and the colon mucosa was carefully examined including a retroflexed view of the rectum. Findings and interventions are described below. Procedure Difficulty: Without difficulty Findings: Terminal Ileum: Not evaluated Cecum: A 4-5 mm sessile polyp - removed with a cold snare Ascending Colon: A 4-5 mm sessile polyp - removed with cold biopsy. Moderate scattered diverticulosis throughout the entire colon Transverse Colon: Moderate scattered diverticulosis throughout the entire colon Descending Colon: Moderate scattered diverticulosis throughout the entire colon Sigmoid Colon: Severe diverticulosis with luminal narrowing navigated with some difficulty Rectum: Normal Ano-rectum: Small internal hemorrhoids Colon preparation: Excellent Impression and Post Procedure Diagnosis: Colonoscopy Findings: Two small polyps removed Moderate diverticulosis seen in the entire colon Small hemorrhoids on retroflexed exam. Plan: Await pathology results Patient has an appointment on 08/01/23 in the GI Clinic with Nelly Wharton FNP-BC . Repeat Colonoscopy interval based on path results - in 5 years if polyps are adenomatous and 10 years if polyps are hyperplastic. Above findings were reviewed with the patient and colon polyps and diverticulosis handouts were given in the discharge area
[2023-07-21 08:24] VITALS: BP 106/60; PULSE 85; RESP 14; TEMP 36.6; O2SAT 95
[2023-07-21 08:39] VITALS: BP 112/67; PULSE 66; RESP 16; O2SAT 99
[2023-07-21 08:54] VITALS: BP 116/71; PULSE 69; RESP 16; TEMP 36.6; O2SAT 98
== END 2023-07-21 10:39 | disposition home or self-care (01) ==
PROVIDERS: PCP Internal Medicine Geriatric Medicine; Visit Provider Internal Medicine Gastroenterology
PROC: 0DJD8ZZ Inspection of Lower Intestinal Tract, Via Natural or Artificial Opening Endoscopic (ICD-10-PCS; CPT 45378; principal; 2023-07-21 07:30)
DX: Z12.11 Encounter for screening for malignant neoplasm of colon (principal); D12.0 Benign neoplasm of cecum; K63.5 Polyp of colon; K57.30 Diverticulosis of large intestine without perforation or abscess without bleeding; K64.8 Other hemorrhoids; Z83.71 Family history of colonic polyps; K59.04 Chronic idiopathic constipation; Z79.899 Other long term (current) drug therapy; Z87.440 Personal history of urinary (tract) infections; Z87.442 Personal history of urinary calculi
CPT/HCPCS: 45380; 45385; 88305

== ENCOUNTER → 2023-07-21 06:03 | Outpatient (BNV) | payer OTHER, SELFPAY | PROVIDERS: PCP Internal Medicine Geriatric Medicine; Visit Provider Internal Medicine Gastroenterology | DX: Z12.11 Encounter for screening for malignant neoplasm of colon (principal); Z86.010 Personal history of colon polyps; K57.30 Diverticulosis of large intestine without perforation or abscess without bleeding; K64.8 Other hemorrhoids; D12.0 Benign neoplasm of cecum; D12.2 Benign neoplasm of ascending colon | CPT/HCPCS: 45380; 45385 ==

== ENCOUNTER 2023-08-01 10:08 | Outpatient (AMB) | payer OTHER, MEDICAID, SELFPAY ==
--- NOTE | 2023-08-01 10:13 | MHC.OFFVIS ---
Intake Vital Signs 08/01/23 10:17 Height 5 ft 1 in Weight 137 lb 9.095 oz BMI 26.0 BP 143/84 H Blood Pressure Location Lt brachial Position Sitting Pulse 73 Intake Visit Reasons: S/P [place];Dr. Newsome Intake Note: Crecencia presents in office as a est.patient for a post-op for colo PT CC: pt reports having no concerns pt denies any other GI Issues Privacy Compliance Manager Required: Yes Privacy Compliance Manager Language: Tristanian Accompanied by: Self / Same As Patient Allergies ceftriaxone Allergy (Severe, Verified 08/04/23 13:23) Anaphylaxis Iodinated Contrast Media [IV Contrast Dye] Allergy (Severe, Verified 08/04/23 13:23) Anaphylaxis magnesium hydroxide [From Milk of Magnesia] Allergy (Intermediate, Verified 08/04/23 12:06) Rash HPI S/P [place];Dr. Newsome HPI Details LAST VISIT: Chronic idiopathic constipation Chronic constipation. Patient can continue stool softeners and Dulcolax. Patient was also encouraged to try MiraLax if she is unable to have a bowel movement. Screen for colon cancer Family history of colorectal cancer. Patient's mother of colorectal cancer at age 52 History of diverticulitis History of diverticulitis. Patient was encouraged to avoids certain dietary is triggers. Patient was also encouraged to make sure that she is moving her bowels every day. Drink plenty fluids. Patient also is to try [id number] probiotic. I will see her after the procedure, sooner on as needed basis if patient is agreeable to this plan and verbalizes understanding of instructions. She was given the opportunity to ask questions and all questions answered COLONOSCOPY: Findings: Terminal Ileum: Not evaluated Cecum: A 4-5 mm sessile polyp - removed with a cold snare Ascending Colon: A 4-5 mm sessile polyp - removed with cold biopsy. Moderate scattered diverticulosis throughout the entire colon Transverse Colon: Moderate scattered diverticulosis throughout the entire colon Descending Colon: Moderate scattered diverticulosis throughout the entire colon Sigmoid Colon: Severe diverticulosis with luminal narrowing navigated with some difficulty Rectum: Normal Ano-rectum: Small internal hemorrhoids Colon preparation: Excellent Impression and Post Procedure Diagnosis: Colonoscopy Findings: Two small polyps removed Moderate diverticulosis seen in the entire colon Small hemorrhoids on retroflexed exam. Plan: Repeat Colonoscopy interval based on path results - in 5 years if polyps are adenomatous and 10 years if polyps are hyperplastic. PATHOLOGY Diagnosis A. Colon, cecal polyp: Tubular adenoma; negative for high-grade dysplasia and carcinoma. B. Colon, ascending, polyp: Polypoid colonic mucosa with no specific change; no adenomatous dysplasia seen. TODAY'S VISIT Patient is here today for follow-up and to discuss colonoscopy results. Patient denies any ill effects from the prep, anesthesia procedure itself. Patient has an appointment for her upcoming surgery for resection of her sigmoid colon due to frequent diverticulosis. Patient reports to be feeling well, moving her bowels without any issues. Patient denies melena, hematochezia, unintentional weight loss or ribbon like stools. Patient denies any dyspepsia, dysphagia or odynophagia. Patient is nervous about going for surgery. Surgery scheduled for the of this month. [facility] Medical History Hemorrhoids with complication Endometrial hyperplasia Heartburn GERD (gastroesophageal reflux disease) Skin lesion of back Kidney stone Vitamin D deficiency Hypothyroidism Surgical History Hx of unilateral oophorectomy History of surgery Tubal ligation status Hx of colonoscopy Hx of esophagogastroduodenoscopy Family History Father Hypertension Respiratory failure Mother Pancreatic cancer Social History Household Members: Spouse Housing: Apartment Are you a primary ocular care aide to a significant other at home: No Do you presently have visiting nurse or other home services: No Alcohol intake: never Patient Tobacco Use Status: Never used Tobacco Smoked in Last 30 Days: No Patient Interested in Nicotine Replacement: No Patient Given Instructions on How to Stop Smoking: No Second Hand Smoke Exposure: No Use of substances other than those prescribed or required for medical reasons: No Currently Displaying Signs/Symptoms of Drug Intoxication Withdrawal: No Any prior treatment program specific to substance use: No Have you been hit, kicked, punched, or otherwise hurt by someone within the past year? If so, by whom?: No Do you feel safe in your current relationship?: Yes Is there a partner from a previous relationship who is making you feel unsafe now?: No Are you made to feel afraid or neglected: No Spiritual Healthcare Practices: None Nondenominational Healthcare Practices: None Cultural Healthcare Practices: None Are you DNR?: No Advance Directives: No Advance Directives Information Provided: Yes Advance Directives on File: No Do you have thoughts of harming others: None Do you have a plan to hurt others: No Plan Recently lost weight without trying: No Eating poorly because of decreased appetite: No Nutrition Risks: No Nutritional Risk Patient : No : No Poor oral hygiene: No service: No Current occupational status: employed Current occupation: [employer] Sexual orientation: Straight/Heterosexual Gender identity: Female Female Reproductive History Menstrual Age of Menarche: 16 Review of Systems Const Denies weight gain and Denies weight loss ENT Reports no additional complaints, Denies dysphagia and Denies odynophagia Card Reports no additional complaints Resp Reports no additional complaints GI Denies abdominal pain, Denies belching, Denies melena, Denies bloating, Denies change in bowel habits, Denies dysphagia, Denies excessive flatus, Denies dyspepsia, Denies heartburn, Denies diarrhea, Denies loose stools, Denies nausea, Denies odynophagia and Denies vomiting Musc Reports no additional complaints Neuro Reports no additional complaints Psych Reports no additional complaints Endo Reports no additional complaints Physical Exam Vital Signs: Last Vital Signs Pulse 73 08/01/23 10:17 BP 143/84 H 08/01/23 10:17 BMI result Body Mass Index 26.0 Const General: healthy appearing, no acute distress and well developed Nutritional Appearance: well nourished Orientation/consciousness: patient oriented x3 HEENT Head: Yes normal to inspection, Yes normocephalic and Yes atraumatic Face and sinus: Yes normal facial exam Mouth: Normal oral and palatal mucosa present Throat: Yes posterior oropharynx normal, Yes tonsils normal and Yes uvula midline Eyes General: appearance normal, both eyes and all related structures Neck Neck: Yes normal visual inspection, Yes full ROM and Yes trachea midline Thyroid: Thyroid normal Resp Effort & Inspection: normal respiratory effort, able to speak in complete sentences, no tracheal deviation and symmetric chest movement Auscultation: clear to auscultation bilaterally Cardio Rate: regular rate Heart sounds: S1 normal heart sound present and S2 normal heart sound present GI Inspection: Yes normal to inspection and No distended Palpation (GI): Soft to palpation, not firm, nontender and No hepatosplenomegaly present Auscultation: normal bowel sounds General: Yes no CVA tenderness Back/Spine/Pelvis Back: no CVA tenderness Skin General skin exam: elasticity normal, turgor normal and dry skin Neuro General: patient oriented x3 Psych Appearance: grossly normal Mental Status: mental status grossly normal Speech and movement: Normal speech and movement present Assessment & Plan Assessment & Plan (1) Chronic idiopathic constipation: Code(s): K59.04 - Chronic idiopathic constipation Plan: Continue Dulcolax and Colace. Patient was encouraged to increase fluid intake and activity to promote better bowel motility. (2) Diverticulitis: Code(s): K57.92 - Diverticulitis of intestine, part unspecified, without perforation or abscess without bleeding Plan: History of diverticulitis. Hospitalized several times in the past couple years. Patient has surgery scheduled for colon resection on the 28 of this month with Dr. Araya (3) Tubular adenoma: Code(s): D36.9 - Benign neoplasm, unspecified site Plan: Tubular adenoma found without high-grade dysplasia or carcinoma. Repeat colonoscopy in 5 years, sooner if clinically necessary. Patient is agreeable to this plan and verbalizes understanding of instructions. She was given the opportunity to ask questions and all questions answered. Thank you for allowing me to participate in her care Medications: New Lactobacillus rhamnosus GG (Probiotic Digestive Care) ONE CAP orally DAILY 30 caps 2RF Refilled bisacodyl (Dulcolax (bisacodyl)) 10 mg (2 x 5 mg) PO BEDTIME 180 tabs 4RF docusate sodium 100 mg PO BEDTIME 90 caps 3RF K59.00 - Constipation, unspecified Coding Level of Care Code Est Pt Level 4 (56905) Diagnoses Chronic idiopathic constipation K59.04 Diverticulitis K57.92 Tubular adenoma D36.9 Time Spent (min) 35 Comment 20 minutes spent with patient and additional 15 minutes spent reviewing her records
[2023-08-01 10:17] VITALS: BP 143/84; PULSE 73; BMI 26.0
== END 2023-08-01 11:20 | disposition home or self-care (01) ==
PROVIDERS: PCP Internal Medicine Geriatric Medicine; Visit Provider Nurse Practitioner Family
DX: K59.04 Chronic idiopathic constipation (principal); K57.92 Diverticulitis of intestine, part unspecified, without perforation or abscess without bleeding; D36.9 Benign neoplasm, unspecified site
CPT/HCPCS: 99214

== ENCOUNTER → 2023-08-01 10:08 | Outpatient (BNVA) | payer OTHER, SELFPAY | PROVIDERS: PCP Internal Medicine Geriatric Medicine; Visit Provider Nurse Practitioner Family | DX: K59.04 Chronic idiopathic constipation (principal); K57.92 Diverticulitis of intestine, part unspecified, without perforation or abscess without bleeding; D36.9 Benign neoplasm, unspecified site | CPT/HCPCS: 99212 ==

== ENCOUNTER 2023-08-11 10:33 | Inpatient (IN) | payer OTHER, SELFPAY ==
--- NOTE | 2023-08-04 | ECG_ITS ---
Test Reason : preop Blood Pressure : / mmHG Vent. Rate : 069 BPM Atrial Rate : 069 BPM P-R Int : 154 ms QRS Dur : 094 ms QT Int : 400 ms P-R-T Axes : 054 000 -22 degrees QTc Int : 428 ms Normal sinus rhythm Minimal voltage criteria for LVH, may be normal variant ( R in aVL ) ST & T wave abnormality, consider anterior ischemia ST & T wave abnormality, consider inferior ischemia Abnormal ECG When compared with ECG of 24-DEC-2022 01:43, Vent. rate has decreased BY 40 BPM Nonspecific T wave abnormality, improved in Lateral leads T wave inversion more evident in Inferior leads Referred By: Lacie Johnston Electronically Signed By:LIDYA REDD
[2023-08-04 12:07] VITALS: BP 134/86; PULSE 70; RESP 16; O2SAT 98; BMI 25.2
--- NOTE | 2023-08-04 12:23 | HO.ANESPROP2 ---
Documented by User: Lacie Johnston NP 08/10/23 09:01 HPI - Anesthesia Eval Consult details Narrative: 53yo F for Colectomy Sigmoid Resection, Sigmoidoscopy, Rigid *Very prone to nosebleeds on Left* s/p colo 07/2023 with TIVA No recent illness No CP/SOB with > 4mets GERD controlled by diet PMFSH Active Problems Active Problems: All Active Problems (Updated 06/23/23 @ 00:17 by Fabrizio Andres MD) Diverticulitis large intestine (Acute) Hydronephrosis (Acute) Recurrent UTI (Acute) Ureteral stricture, right (Acute) Diverticulitis (Acute) Hemorrhoids with complication (Acute) Chronic idiopathic constipation (Acute) Kidney stone (Acute) Complex cyst of left ovary (Acute) Well woman exam (Acute) Metrorrhagia (Acute) Vaginal discharge (Acute) UTI (urinary tract infection) (Acute) Microscopic hematuria (Acute) Vitamin D deficiency (Acute) Hypothyroidism (Acute) Past Medical History Medical History Hemorrhoids with complication Endometrial hyperplasia Heartburn GERD (gastroesophageal reflux disease) Skin lesion of back Kidney stone Vitamin D deficiency Hypothyroidism Family History Family History Father Hypertension Respiratory failure Mother Pancreatic cancer Family history of problems with anesthesia: No Surgical History Surgical History Hx of unilateral oophorectomy History of surgery Tubal ligation status Hx of colonoscopy Hx of esophagogastroduodenoscopy History of Problems with Anesthesia: No Social History Social History Household Members: Spouse Housing: House Are you a primary personal care assistant to a significant other at home: No Do you presently have visiting nurse or other home services: No Alcohol intake: never Patient Tobacco Use Status: Never used Tobacco Second Hand Smoke Exposure: No Have you been hit, kicked, punched, or otherwise hurt by someone within the past year? If so, by whom?: No Spiritual Healthcare Practices: None Tenriism Healthcare Practices: None Cultural Healthcare Practices: None Are you DNR?: No Advance Directives: No Advance Directives Information Provided: Yes Advance Directives on File: No Recently lost weight without trying: No Nutrition Risks: No Nutritional Risk service: No Current occupational status: employed Current occupation: [employer] Sexual orientation: Straight/Heterosexual Gender identity: Female Meds Allergies Allergy/AdvReac Type Severity Reaction Status Date / Time ceftriaxone Allergy Severe Anaphylaxis Verified 08/04/23 13:23 Iodinated Contrast Media Allergy Severe Anaphylaxis Verified 08/04/23 13:23 [IV Contrast Dye] magnesium hydroxide Allergy Intermediate Rash Verified 08/04/23 12:06 [From Milk of Magnesia] Home Medications Medication Instructions Recorded Confirmed Last Taken Type lisinopril 10 mg tablet 10 mg PO DAILY 09/14/22 08/03/23 08/10/23 History levothyroxine 75 mcg tablet 1 tab PO DAILY 12/23/22 08/04/23 08/11/23 History bisacodyl 5 mg tablet,delayed 10 mg PO DAILY 08/11/23 08/11/23 08/10/23 History release Exam Exam Date and Time: August 04, 2023 1223 Height,Weight and Vital Signs: Height 5 ft 1 in Weight 60.6 kg Last Vital Signs Pulse 70 08/04/23 12:07 Resp 16 08/04/23 12:07 BP 134/86 08/04/23 12:07 Pulse Ox 98 08/04/23 12:07 O2 Del Method Room Air 08/04/23 12:07 Pertinent Lab Results Pertinent Lab Results: Laboratory Tests 06/23/23 05:25 WBC 8.3 Hgb 10.4 L Hct 32.3 L Plt Count 159 L Sodium 137 Potassium 4.6 Chloride 107 Carbon Dioxide 23 BUN 11 Creatinine 0.84 Narrative Narrative: EKG 07/2023 Vent. Rate : 069 BPM Atrial Rate : 069 BPM P-R Int : 154 ms QRS Dur : 094 ms QT Int : 400 ms P-R-T Axes : 054 000 -22 degrees QTc Int : 428 ms Normal sinus rhythm Minimal voltage criteria for LVH, may be normal variant ( R in aVL ) ST & T wave abnormality, consider anterior ischemia ST & T wave abnormality, consider inferior ischemia Abnormal ECG When compared with ECG of 24-DEC-2022 01:43, Vent. rate has decreased BY 40 BPM Nonspecific T wave abnormality, improved in Lateral leads T wave inversion more evident in Inferior leads Airway Mallampati Class: II TM Dist: >3cm Neck ROM: Full Loose/Missing/Broken Teeth: Yes (2 x molars) Heart: RRR Lungs: CTAB Assessment and Plan Assessment Anesthesia Assessment: Anesthesia Plan Discussed and PAT Visit Final Anesthetic Review Family History of Problems with Anesthesia: No History of Problems with Anesthesia: No Documented by User: Reyna Vitale MD 08/11/23 09:37 PMFSH Past Medical History Medical History Hemorrhoids with complication Endometrial hyperplasia Heartburn GERD (gastroesophageal reflux disease) Skin lesion of back Kidney stone Vitamin D deficiency Hypothyroidism Family History Family History Father Hypertension Respiratory failure Mother Pancreatic cancer Surgical History Surgical History Hx of unilateral oophorectomy History of surgery Tubal ligation status Hx of colonoscopy Hx of esophagogastroduodenoscopy Social History Social History Household Members: Spouse Housing: House Are you a primary personal care assistant to a significant other at home: No Do you presently have visiting nurse or other home services: No Alcohol intake: never Patient Tobacco Use Status: Never used Tobacco Second Hand Smoke Exposure: No Have you been hit, kicked, punched, or otherwise hurt by someone within the past year? If so, by whom?: No Spiritual Healthcare Practices: None Tenriism Healthcare Practices: None Cultural Healthcare Practices: None Are you DNR?: No Advance Directives: No Advance Directives Information Provided: Yes Advance Directives on File: No Recently lost weight without trying: No Nutrition Risks: No Nutritional Risk service: No Current occupational status: employed Current occupation: [employer] Sexual orientation: Straight/Heterosexual Gender identity: Female Meds Allergies Allergy/AdvReac Type Severity Reaction Status Date / Time ceftriaxone Allergy Severe Anaphylaxis Verified 08/04/23 13:23 Iodinated Contrast Media Allergy Severe Anaphylaxis Verified 08/04/23 13:23 [IV Contrast Dye] magnesium hydroxide Allergy Intermediate Rash Verified 08/04/23 12:06 [From Milk of Magnesia] Home Medications Medication Instructions Recorded Confirmed Last Taken Type lisinopril 10 mg tablet 10 mg PO DAILY 09/14/22 08/03/23 08/10/23 History levothyroxine 75 mcg tablet 1 tab PO DAILY 12/23/22 08/04/23 08/11/23 History bisacodyl 5 mg tablet,delayed 10 mg PO DAILY 08/11/23 08/11/23 08/10/23 History release Assessment and Plan Final Anesthetic Review NPO: Yes ASA Class: III Final Preanesthetic Review: No Changes in Pt Med Stat, Meds/Allgs Chart Reviewed, Consent Obtained/Reviewed and Anes Risks/Benef Reviewed Patient Risk: Intermediate Procedure Risk: Intermediate Anesthetic Plan Anesthetic Plan: GA Disposition: Standard PACU
--- NOTE | 2023-08-10 09:07 | MHC.SHP ---
Pre-Procedural Eval Section A Date of Service: 08/10/23 The patient is an INPATIENT: Yes Changes since office visit: No Cold of Flu in the past 2 weeks, No New Medical Problems, No Changes in Medication and No Patient answered all questions The History & Physical has been completed within 30 days and I have reviewed it.: Yes Section B Chief Complaint: Diverticulitis of large intestine without perforat Allergies: Allergies Allergy/AdvReac Type Severity Reaction Status Date / Time ceftriaxone Allergy Severe Anaphylaxis Verified 08/04/23 13:23 Iodinated Contrast Media Allergy Severe Anaphylaxis Verified 08/04/23 13:23 [IV Contrast Dye] magnesium hydroxide Allergy Intermediate Rash Verified 08/04/23 12:06 [From Milk of Magnesia] Plan I have reviewed the history and physical and performed a pertinent physical examination on my patient. No changes have occurred unless specified. Time Spent With Patient Time: Total time managing care of this patient today ____ minutes.
[2023-08-11] VITALS (19 sets, daily range): BP systolic 116–158; BP diastolic 65–81; PULSE 71–99; RESP 12–20; TEMP 36–37.2; O2SAT 97–99; BMI 25.2
[2023-08-11] MEDS: Lactated Ringers 1,000 ML 100 ML IVCONT ×2 (07:18→14:57)
--- NOTE | 2023-08-11 12:09 | W.PM.OPN ---
Operative Note Operative Note Date of Service: 08/11/23 Narrative: Preoperative diagnosis: [] Recurrent bouts of sigmoid diverticulitis Postop diagnosis: [] Same Procedure [] mini exploratory laparotomy, sigmoid resection, primary colorectal EEA anastomosis, rigid proctoscopy Surgeon: [] Marshal Program Director Group Work: [] Khalida Type of Anesthesia: [] General Indication for surgery: Recurrent diverticulitis. Findings: Patient brought to the operating room, placed on operative table in supine position, after adequate level of general anesthesia was induced, patient was placed in lithotomy position. Rectal exam demonstrated no obvious pathology. Abdomen and perineum were prepped and draped in usual fashion. Using a small lower midline incision, this carried down through skin, subcutaneous tissue, and linea alba. Posterior fascia and peritoneum were entered and extended along the length of the incision. Packs and retractors were placed to enhance exposure. Small bowel was packed in the upper abdomen. Sigmoid colon was mobilized, along with taken down the lateral peritoneal reflection using Bovie for the left colon. Left ureter was identified and preserved throughout the procedure.. Sigmoid colon was transected approximately at the junction with the left colon using JOEY stapler. Mesentery was taken down using double firing of ligature device tightly along the mesenteric border of the sigmoid colon down to the rectosigmoid junction. Distal sigmoid colon was transected using contour stapler device at the rectosigmoid junction. The specimen was sent to pathology. With adequately mobilized and well vascularized left colon for anastomosis, a pursestring suture was placed across the bowel and dilators used. Size 25 EEA anvil was secured by tying the pursestring suture. EEA was then advanced transanally to the rectum and both ends of the stapler were connected, and fired. Evaluation of the anastomosis integrity in the post firing stapler demonstrated 2 full/complete donuts. Abdominal cavity was filled with saline and proximal left colon occluded. Proctosigmoidoscopy insufflation demonstrated no extravasation of air through the anastomosis. Abdominal cavity was very copiously irrigated and secured hemostasis. Wound was closed in following manner; mass closure using 1. Looped PDS used to close midline incision. Interrupted inverted dermal 3-0 Vicryl sutures followed by Steri-Strips and sterile dressings were applied. Sponge, needle, and instrument counts reported correct. Patient tolerated the procedure well and emerged anesthesia in stable condition. EBL minimal. Patient is undergoing a regional block at completion of the procedure per Anesthesia.
[2023-08-11] MEDS: fentaNYL citrate/PF 100 MCG/2 ML VIAL 25 MCG IVPUSH ×4 (13:38→13:58)
--- NOTE | 2023-08-11 14:37 | PC.NURSE ---
Addendum entered by Molly De La O RN 08/11/23 15:08: oriented to room and call membreno system family at bedside. Abd dressing clean dry and intact . routine post op care Original Note: Pt received from PACU via bed
[2023-08-11] MEDS: Acetaminophen 1,000 MG/100 ML PIGGYBACK 400 MG IV ×2 (16:48→23:47)
[2023-08-12] MEDS: Lactated Ringers 1,000 ML 100 ML IVCONT ×3 (01:11→19:53)
[2023-08-12 03:03] VITALS: BP 123/75; PULSE 98; RESP 18; TEMP 36.2; O2SAT 98
[2023-08-12] MEDS: Morphine Sulfate 2 MG/ML CARTRIDGE 4 MG IVPUSH (03:35)
[2023-08-12 04:05] VITALS: RESP 18
[2023-08-12 05:39] LABS: Mean Platelet Volume 13.6 fL (9.4-12.3); SCAN SMEAR FLAG 1
[2023-08-12 05:41] LABS: Basophils Percent Auto 0.4 % (0-2); Eosinophils Percent Auto 0.1 % (0-4); Hematocrit 32.6 % (37.0-47.0); Hemoglobin 10.6 g/dl (12.0-16.0); Imm Gran Abs Auto 0.05 X10*3/uL (0.00-0.03); Imm Gran Pct Auto 0.5 % (0.0-0.4); Lymphocytes Absolute Auto 1.6 X10*3/uL (1.2-4.9); Lymphocytes Percent Auto 15.1 % (20-40); MANUAL DIFF FLAG SCAN; Mean Corpuscular HGB Conc 32.5 g/dl (31.0-35.0); Mean Corpuscular Hemoglobin 28.5 pg (27.0-33.0); Mean Corpuscular Volume 87.6 fL (80.0-98.0); Monocytes Absolute Auto 0.8 X10*3/uL (0.1-1.2); Monocytes Percent Auto 7.8 % (2-11); Neutrophils Absolute Auto 8.1 x10*3/uL (2.0-8.3); Neutrophils Percent Auto 76.1 % (45-73); PLT CLUMP 1; Red Blood Count 3.72 X10*6/uL (4.20-5.50); Red Cell Distribution Width 13.2 % (11.0-16.0)
[2023-08-12 05:56] LABS: PLT ABN DIST 1
[2023-08-12 05:57] LABS: White Blood Count 10.6 X10*3/uL (4.8-10.8)
[2023-08-12 05:58] LABS: Platelet Count 149 X10*3/uL (160-400)
[2023-08-12 06:01] LABS: Anion Gap 15 (12-20); Blood Urea Nitrogen 10 mg/dL (9-16); Calcium 9.2 mg/dL (8.4-10.2); Carbon Dioxide 24 mmol/L (22-29); Chloride 103 mmol/L (96-108); Creatinine Clr Calc Pharmacy 68.9; Estimated Glomerular Filt Rate > 60; Glucose Random 119 mg/dL (60-115); Potassium 4.4 mmol/L (3.3-5.1); Sodium 138 mmol/L (135-145)
[2023-08-12] MEDS: Acetaminophen 1,000 MG/100 ML PIGGYBACK 400 MG IV ×4 (06:06→23:42)
[2023-08-12 06:07] LABS: SLIDE REVIEW VERIFIED
[2023-08-12] MEDS: Levothyroxine Sodium 75 MCG TABLET PO (06:07)
[2023-08-12 06:37] VITALS: RESP 18
[2023-08-12 07:30] VITALS: BP 110/56; PULSE 80; RESP 16; TEMP 36.2; O2SAT 95
--- NOTE | 2023-08-12 08:07 | P.PNGS_ITS ---
Subjective Subjective Date of Service: 08/12/23 Interval history: Passing flatus and had a small maroon stool this AM. C/o incisional pain. Hungry but does not feel ready for solid food. Has not been OOB yet. Physical Exam 2 Vital Signs: Vital Signs: Last Vital Signs Temp 97.2 F 08/12/23 07:30 Pulse 80 08/12/23 07:30 Resp 16 08/12/23 07:30 BP 110/56 L 08/12/23 07:30 Pulse Ox 95 08/12/23 07:30 O2 Del Method Room Air 08/12/23 07:30 O2 Flow Rate 2.0 08/11/23 19:05 BMI result Body Mass Index 25.2 Const: General: comfortable, no acute distress and alert O rientation/consciousness: patient oriented x3 Resp: Effort & Inspection: normal respiratory effort GI: Inspection: No distended and Yes incision (dressing c/d/i) Palpation (GI): Soft to palpation, Tenderness to palpation present (GI) (mild incisional), no guarding and not rigid Percussion: Yes normal to percussion Skin: General skin exam: no rashes or lesions noted Neuro: General: patient oriented x3 and moves all extremities Objective Data Active Medications Heparin Sodium (Porcine) (Heparin Sodium,Porcine 5,000 Unit/Ml Vial) 5,000 unit SUBCUT Q8H [facility], [facility]1983 Hydromorphone HCl (Hydromorphone Hcl 0.5 Mg/0.5 Ml Syringe) 0.5 mg IVPUSH Q5M PRN; Protocol PRN Reason: Pain, Severe (Pain Scale 7-10) Lactated Ringer's (Lr) 1,000 mls @ 100 mls/hr IVCONT .Q10H [facility], [facility]1983 Last Admin: 08/12/23 01:11 Dose: 100 mls/hr Documented By: SLOANE Acetaminophen (Ofirmev) 1,000 mg in 100 mls @ 400 mls/hr IV Q6H [facility], [facility]1983 Last Infusion: 08/12/23 06:28 Dose: Infused Documented By: SLOANE Levothyroxine Sodium (Levothyroxine Sodium 75 Mcg Tablet) 75 mcg PO DAILY@0600 [facility], [facility]1983 Last Admin: 08/12/23 06:07 Dose: 75 mcg Documented By: SLOANE Lisinopril (Lisinopril 10 Mg Tablet) 10 mg PO DAILY [facility]; Protocol Melatonin (Melatonin 3 Mg Tablet) 6 mg PO BEDTIME PRN PRN Reason: Insomnia Morphine Sulfate (Morphine Sulfate 2 Mg/Ml Cartridge) 4 mg IVPUSH Q4H PRN; Protocol PRN Reason: Pain, Severe (Pain Scale 7-10) Last Admin: 08/12/23 03:35 Dose: 4 mg Documented By: SLOANE Ondansetron HCl (Ondansetron Hcl 4 Mg/2 Ml Vial) 4 mg IVPUSH Q8H PRN PRN Reason: Nausea Oxycodone HCl (Oxycodone Hcl Immed Release 5 Mg Tablet) 5 mg PO Q4H PRN PRN Reason: Pain, Moderate(Pain Scale 4-6) Oxycodone HCl (Oxycodone Hcl Immed Release 5 Mg Tablet) 10 mg PO Q4H PRN PRN Reason: Pain, Severe (Pain Scale 7-10) Sodium Chloride (0.9 % Sodium Chloride Flush 3 Ml Syringe) 3 [facility] Last Admin: 08/11/23 23:47 Dose: Not Given Documented By: SLOANE Non-Admin Reason: IV Running Labs 08/12/23 05:15 08/12/23 05:15 Labs: Laboratory Results - last 24 hr 08/12/23 05:15 MCV 87.6 MCH 28.5 MCHC 32.5 RDW 13.2 Plt Count 149 L MPV 13.6 H Immature Gran % (Auto) 0.5 H Neut % (Auto) 76.1 H Lymph % (Auto) 15.1 L [place] % (Auto) 7.8 Eos % (Auto) 0.1 Baso % (Auto) 0.4 Lymph # (Auto) 1.6 [place] # (Auto) 0.8 Eos # (Auto) 0.0 Baso # (Auto) 0.0 Abs Immat Gran (auto) 0.05 H Absolute Neuts (auto) 8.1 Absolute Nucleated RBC 0.000 Nucleated RBC % (auto) 0.0 Smear Tech's Comments VERIFIED Anion Gap 15 Estim Creat Clear Calc 68.9 Estimated GFR > 60 Random Glucose 119 H Calcium 9.2 Procedures Date of Service Date of Service: 08/12/23 Progress Note: A&P Assessment and plan (1) Diverticulitis large intestine: Status: Acute (2) S/P colon resection: Status: Acute Plan POD #1 s/p mini exploratory laparotomy, sigmoid resection, primary colorectal EEA anastomosis, rigid proctoscopy. Doing well post op, passing flatus and tolerating liquids. VSS. Abd with appropriate post op tenderness. Will advance to full liquids and further as tolerated. Dc lopez. Encouraged OOB/ambulation and IS use. AM labs reviewed. Time Spent With Patient Time: Total time managing care of this patient today ____ minutes. Quality Stroke Does the patient have a stroke diagnosis?: No VTE Prior VTE?: No VTE Risk Level:: Surgical - low VTE Device Contraindication: N/A - Device Ordered VTE Drug Contraindication: N/A - Med Ordered
--- NOTE | 2023-08-12 08:12 | PC.NURSE ---
lopez cath removed per order and policy
[2023-08-12] MEDS: lisinopriL 10 MG TABLET PO (08:24)
[2023-08-12] MEDS: oxyCODONE HCl Immed Release 5 MG TABLET 10 MG PO ×2 (08:24→20:08)
--- NOTE | 2023-08-12 08:32 | PC.NURSE ---
pt instructed on use of incentive spirometer via use of coding quality analyst Mariusz
[2023-08-12] MEDS: ondansetron HCL 4 MG/2 ML VIAL IVPUSH (12:13)
--- NOTE | 2023-08-12 12:22 | MHC.CM.PN ---
pt lives with is indepedent no servixes needed
--- NOTE | 2023-08-12 14:07 | HO.POSTANES ---
Post Anesthesia Evaluation Post Anesthesia Evaluation Date of Service: 08/12/23 Vital Signs: Vital Signs Temp Pulse Resp BP Pulse Ox O2 Del Method 08/12/23 07:30 97.2 F 80 16 110/56 L 95 Room Air 08/12/23 06:37 18 08/12/23 04:05 18 08/12/23 03:03 97.2 F 98 18 123/75 98 Nasal Cannula Anesthesia: General Endotracheal-GETA Mental Status: Awake Pain Control: Satisfactory Nausea/Vomiting: None Hydration: Adequate Anesthesia-Related Issues: No Anes. Related Issues
[2023-08-12 15:09] VITALS: BP 127/74; PULSE 80; RESP 16; TEMP 36.7; O2SAT 95
[2023-08-12] MEDS: Heparin Sodium,Porcine 5,000 UNIT/ML VIAL 5000 UNIT SUBCUT (19:53)
[2023-08-12 20:00] VITALS: BP 125/69; PULSE 86; RESP 18; TEMP 36.5; O2SAT 97
[2023-08-13 03:27] VITALS: BP 110/63; PULSE 91; RESP 20; TEMP 36.1; O2SAT 93
[2023-08-13] MEDS: Heparin Sodium,Porcine 5,000 UNIT/ML VIAL 5000 UNIT SUBCUT ×3 (04:32→20:00)
[2023-08-13] MEDS: Lactated Ringers 1,000 ML 100 ML IVCONT (05:14)
[2023-08-13] MEDS: oxyCODONE HCl Immed Release 5 MG TABLET 10 MG PO ×2 (05:28→16:41)
[2023-08-13] MEDS: Acetaminophen 1,000 MG/100 ML PIGGYBACK 400 MG IV ×4 (05:28→23:39)
[2023-08-13] MEDS: Levothyroxine Sodium 75 MCG TABLET PO (06:11)
[2023-08-13 08:00] VITALS: BP 127/63; PULSE 83; RESP 15; TEMP 36.8; O2SAT 95
--- NOTE | 2023-08-13 09:48 | P.PNGS_ITS ---
Subjective Subjective Date of Service: 08/14/23 Interval history: some incisional pain although better tolerating full liquids passing flatus had some blood per rectum - last episode was last night ambulating Physical Exam 2 Vital Signs: Vital Signs: Last Vital Signs Temp 98.2 F 08/13/23 08:00 Pulse 83 08/13/23 08:00 Resp 15 08/13/23 08:00 BP 127/63 08/13/23 08:00 Pulse Ox 95 08/13/23 08:00 O2 Del Method Room Air 08/13/23 08:00 O2 Flow Rate 2.0 08/11/23 19:05 BMI result Body Mass Index 25.2 Const: Other: looks well General: comfortable and no acute distress Resp: Effort & Inspection: normal respiratory effort Cardio: Rate: regular rate GI: Other: tender on incision, incision clean and dry Palpation (GI): Soft to palpation, not firm and no guarding Objective Data Active Medications Heparin Sodium (Porcine) (Heparin Sodium,Porcine 5,000 Unit/Ml Vial) 5,000 unit SUBCUT Q8H [facility] Last Admin: 08/13/23 04:32 Dose: 5,000 unit Documented By: MEGAN Hydromorphone HCl (Hydromorphone Hcl 0.5 Mg/0.5 Ml Syringe) 0.5 mg IVPUSH Q5M PRN; Protocol PRN Reason: Pain, Severe (Pain Scale 7-10) Acetaminophen (Ofirmev) 1,000 mg in 100 mls @ 400 mls/hr IV Q6H [facility] Last Infusion: 08/13/23 05:49 Dose: Infused Documented By: MEGAN Levothyroxine Sodium (Levothyroxine Sodium 75 Mcg Tablet) 75 mcg PO DAILY@0600 [facility] Last Admin: 08/13/23 06:11 Dose: 75 mcg Documented By: MEGAN Lisinopril (Lisinopril 10 Mg Tablet) 10 mg PO DAILY [facility]; Protocol Last Admin: 08/12/23 08:24 Dose: 10 mg Documented By: LOY Melatonin (Melatonin 3 Mg Tablet) 6 mg PO BEDTIME PRN PRN Reason: Insomnia Morphine Sulfate (Morphine Sulfate 2 Mg/Ml Cartridge) 4 mg IVPUSH Q4H PRN; Protocol PRN Reason: Pain, Severe (Pain Scale 7-10) Last Admin: 08/12/23 03:35 Dose: 4 mg Documented By: SLOANE Ondansetron HCl (Ondansetron Hcl 4 Mg/2 Ml Vial) 4 mg IVPUSH Q8H PRN PRN Reason: Nausea Last Admin: 08/12/23 12:13 Dose: 4 mg Documented By: LOY Oxycodone HCl (Oxycodone Hcl Immed Release 5 Mg Tablet) 5 mg PO Q4H PRN PRN Reason: Pain, Moderate(Pain Scale 4-6) Oxycodone HCl (Oxycodone Hcl Immed Release 5 Mg Tablet) 10 mg PO Q4H PRN PRN Reason: Pain, Severe (Pain Scale 7-10) Last Admin: 08/13/23 05:28 Dose: 10 mg Documented By: MEGAN Sodium Chloride (0.9 % Sodium Chloride Flush 3 Ml Syringe) [facility] Last Admin: 08/13/23 09:45 Dose: Not Given Documented By: ALYSIA Non-Admin Reason: IV Running Labs 08/12/23 05:15 08/12/23 05:15 Procedures Date of Service Date of Service: 08/14/23 Progress Note: A&P Assessment and plan (1) S/P colon resection: Status: Acute Assessment and Plan: says she is better, with incisional pain looks well abd soft advance diet encourage ambulation possible dc home tomorrow? Time Spent With Patient Time: Total time managing care of this patient today ____ minutes. Quality Stroke Does the patient have a stroke diagnosis?: No VTE Prior VTE?: No VTE Risk Level:: Surgical - low VTE Device Contraindication: N/A - Device Ordered VTE Drug Contraindication: N/A - Med Ordered
[2023-08-13] MEDS: ondansetron HCL 4 MG/2 ML VIAL IVPUSH (10:33)
--- NOTE | 2023-08-13 13:05 | PM.EVENT ---
Event Note Date of Service: 08/13/23 Event Note: seen on early pm rounds says she had one episode of vomitting earlier improved with Zofran currently not nauseous will keep on liquids for now she understands still passing flatus Time Spent With Patient Time: Total time managing care of this patient today ____ minutes.
[2023-08-13 14:52] VITALS: BP 144/81; PULSE 90; RESP 20; TEMP 37.2; O2SAT 95
[2023-08-13 19:23] VITALS: BP 126/74; PULSE 83; RESP 18; TEMP 36.4; O2SAT 92
[2023-08-13] MEDS: 0.9 % Sodium Chloride Flush 3 ML SYRINGE IVFLUSH (23:43)
[2023-08-14 00:50] VITALS: BP 135/88; PULSE 91; RESP 18; TEMP 36.7; O2SAT 95
[2023-08-14] MEDS: Heparin Sodium,Porcine 5,000 UNIT/ML VIAL 5000 UNIT SUBCUT ×2 (03:53→20:11)
[2023-08-14] MEDS: Acetaminophen 1,000 MG/100 ML PIGGYBACK 400 MG IV ×3 (05:29→17:15)
[2023-08-14 07:12] VITALS: BP 145/82; PULSE 80; RESP 18; TEMP 36.1; O2SAT 94
--- NOTE | 2023-08-14 09:25 | P.PNGS_ITS ---
Subjective Subjective Date of Service: 08/14/23 Interval history: no further vomitting passing flatus some pain but says this is better no BMs Physical Exam 2 Vital Signs: Vital Signs: Last Vital Signs Temp 96.9 F 08/14/23 07:12 Pulse 80 08/14/23 07:12 Resp 18 08/14/23 07:12 BP 145/82 H 08/14/23 07:12 Pulse Ox 94 08/14/23 07:12 O2 Del Method Room Air 08/14/23 07:12 O2 Flow Rate 2.0 08/11/23 19:05 BMI result Body Mass Index 25.2 Const: General: comfortable and no acute distress Resp: Effort & Inspection: normal respiratory effort Cardio: Rate: regular rate GI: Other: incision appears clean and dry, no signs of infection Palpation (GI): Soft to palpation, not firm and no guarding Objective Data Active Medications Heparin Sodium (Porcine) (Heparin Sodium,Porcine 5,000 Unit/Ml Vial) 5,000 unit SUBCUT Q8H [facility] Last Admin: 08/14/23 03:53 Dose: 5,000 unit Documented By: MIRELA Hydromorphone HCl (Hydromorphone Hcl 0.5 Mg/0.5 Ml Syringe) 0.5 mg IVPUSH Q5M PRN; Protocol PRN Reason: Pain, Severe (Pain Scale 7-10) Acetaminophen (Ofirmev) 1,000 mg in 100 mls @ 400 mls/hr IV Q6H [facility] Last Infusion: 08/14/23 05:44 Dose: Infused Documented By: MIRELA Levothyroxine Sodium (Levothyroxine Sodium 75 Mcg Tablet) 75 mcg PO DAILY@0600 [facility] Last Admin: 08/14/23 06:07 Dose: Not Given Documented By: MIRELA Non-Admin Reason: Patient Refused Lisinopril (Lisinopril 10 Mg Tablet) 10 mg PO DAILY [facility]; Protocol Last Admin: 08/13/23 12:12 Dose: Not Given Documented By: DOUG Non-Admin Reason: Nausea Melatonin (Melatonin 3 Mg Tablet) 6 mg PO BEDTIME PRN PRN Reason: Insomnia Morphine Sulfate (Morphine Sulfate 2 Mg/Ml Cartridge) 4 mg IVPUSH Q4H PRN; Protocol PRN Reason: Pain, Severe (Pain Scale 7-10) Last Admin: 08/12/23 03:35 Dose: 4 mg Documented By: SLOANE Ondansetron HCl (Ondansetron Hcl 4 Mg/2 Ml Vial) 4 mg IVPUSH Q8H PRN PRN Reason: Nausea Last Admin: 08/13/23 10:33 Dose: 4 mg Documented By: DOUG Oxycodone HCl (Oxycodone Hcl Immed Release 5 Mg Tablet) 5 mg PO Q4H PRN PRN Reason: Pain, Moderate(Pain Scale 4-6) Oxycodone HCl (Oxycodone Hcl Immed Release 5 Mg Tablet) 10 mg PO Q4H PRN PRN Reason: Pain, Severe (Pain Scale 7-10) Last Admin: 08/13/23 16:41 Dose: 10 mg Documented By: ALYSIA Sodium Chloride (0.9 % Sodium Chloride Flush 3 Ml Syringe) [facility] Last Admin: 08/13/23 23:43 Dose: 3 ml Documented By: BELEMP Labs 08/12/23 05:15 08/12/23 05:15 Procedures Date of Service Date of Service: 08/14/23 Progress Note: A&P Assessment and plan (1) S/P colon resection: Status: Acute Assessment and Plan: states she feels better no vomitting since yesterday morning passing flatus, no BM advance diet ambulate clinically doing well Time Spent With Patient Time: Total time managing care of this patient today ____ minutes. Quality Stroke Does the patient have a stroke diagnosis?: No VTE Prior VTE?: No VTE Risk Level:: Surgical - low VTE Device Contraindication: N/A - Device Ordered VTE Drug Contraindication: N/A - Med Ordered
[2023-08-14] MEDS: 0.9 % Sodium Chloride Flush 3 ML SYRINGE IVFLUSH ×3 (09:34→20:13)
[2023-08-14] MEDS: lisinopriL 10 MG TABLET PO (09:34)
--- NOTE | 2023-08-14 14:53 | PM.EVENT ---
Event Note Date of Service: 08/14/23 Event Note: tolerated reg diet for lunch no BMs yet, has flatus still sore on incisions states will stay until tomorrow looks well will add Colace Time Spent With Patient Time: Total time managing care of this patient today ____ minutes.
[2023-08-14 15:52] VITALS: BP 118/85; PULSE 60; RESP 18; TEMP 36.7; O2SAT 94
[2023-08-14 19:36] VITALS: BP 146/75; PULSE 89; RESP 18; TEMP 36.3; O2SAT 94
[2023-08-14] MEDS: Docusate Sodium 100 MG CAPSULE PO (20:11)
[2023-08-14] MEDS: oxyCODONE HCl Immed Release 5 MG TABLET 10 MG PO (23:36)
[2023-08-15 02:58] VITALS: BP 142/84; PULSE 106; RESP 16; TEMP 36.6; O2SAT 95
[2023-08-15] MEDS: Heparin Sodium,Porcine 5,000 UNIT/ML VIAL 5000 UNIT SUBCUT (05:17)
[2023-08-15] MEDS: Levothyroxine Sodium 75 MCG TABLET PO (05:17)
[2023-08-15] MEDS: oxyCODONE HCl Immed Release 5 MG TABLET 10 MG PO (05:32)
[2023-08-15 07:18] VITALS: BP 132/63; PULSE 96; RESP 16; TEMP 36.7; O2SAT 98
[2023-08-15] MEDS: lisinopriL 10 MG TABLET PO (07:49)
[2023-08-15] MEDS: Docusate Sodium 100 MG CAPSULE PO (07:49)
[2023-08-15] MEDS: 0.9 % Sodium Chloride Flush 3 ML SYRINGE IVFLUSH (07:50)
--- NOTE | 2023-08-15 09:04 | PM.PNGS ---
Subjective Subjective Date of Service: 08/15/23 Interval history: Uneventful weekend. Tolerating her diet. Passing flatus. No BM yet. Minimal incisional discomfort. Physical Exam Vital Signs: Vital Signs: Last Vital Signs Temp 98.1 F 08/15/23 07:18 Pulse 96 08/15/23 07:18 Resp 16 08/15/23 07:18 BP 132/63 08/15/23 07:18 Pulse Ox 98 08/15/23 07:18 O2 Del Method Room Air 08/15/23 07:18 O2 Flow Rate 2.0 08/11/23 19:05 BMI result Body Mass Index 25.2 GI: Other: Abdomen soft. Wound clean dry and intact healing uneventfully. Objective Data Active Medications Docusate Sodium (Docusate Sodium 100 Mg Capsule) 100 mg PO BID [facility] Last Admin: 08/15/23 07:49 Dose: 100 mg Documented By: HELEN Heparin Sodium (Porcine) (Heparin Sodium,Porcine 5,000 Unit/Ml Vial) 5,000 unit SUBCUT Q8H [facility] Last Admin: 08/15/23 05:17 Dose: 5,000 unit Documented By: CLAIR Hydromorphone HCl (Hydromorphone Hcl 0.5 Mg/0.5 Ml Syringe) 0.5 mg IVPUSH Q5M PRN; Protocol PRN Reason: Pain, Severe (Pain Scale 7-10) Levothyroxine Sodium (Levothyroxine Sodium 75 Mcg Tablet) 75 mcg PO DAILY@0600 [facility] Last Admin: 08/15/23 05:17 Dose: 75 mcg Documented By: CLAIR Lisinopril (Lisinopril 10 Mg Tablet) 10 mg PO DAILY [facility]; Protocol Last Admin: 08/15/23 07:49 Dose: 10 mg Documented By: HELEN Melatonin (Melatonin 3 Mg Tablet) 6 mg PO BEDTIME PRN PRN Reason: Insomnia Morphine Sulfate (Morphine Sulfate 2 Mg/Ml Cartridge) 4 mg IVPUSH Q4H PRN; Protocol PRN Reason: Pain, Severe (Pain Scale 7-10) Last Admin: 08/12/23 03:35 Dose: 4 mg Documented By: SLOANE Ondansetron HCl (Ondansetron Hcl 4 Mg/2 Ml Vial) 4 mg IVPUSH Q8H PRN PRN Reason: Nausea Last Admin: 08/13/23 10:33 Dose: 4 mg Documented By: HAY-SCOTJ Oxycodone HCl (Oxycodone Hcl Immed Release 5 Mg Tablet) 5 mg PO Q4H PRN PRN Reason: Pain, Moderate(Pain Scale 4-6) Oxycodone HCl (Oxycodone Hcl Immed Release 5 Mg Tablet) 10 mg PO Q4H PRN PRN Reason: Pain, Severe (Pain Scale 7-10) Last Admin: 08/15/23 05:32 Dose: 10 mg Documented By: CLAIR Sodium Chloride (0.9 % Sodium Chloride Flush 3 Ml Syringe) 3 ml IVFLUSH QSHIFT [facility] Last Admin: 08/15/23 07:50 Dose: 3 ml Documented By: PRESTOS Labs 08/12/23 05:15 08/12/23 05:15 Procedures Date of Service Date of Service: 08/15/23 Progress Note: A&P Assessment and plan (1) S/P colon resection: Status: Acute Plan Doing well. Out of bed/ambulate, incentive spirometer, diet as tolerated, consider discharge later today Time Spent With Patient Time: Total time managing care of this patient today ____ minutes. Quality Stroke Does the patient have a stroke diagnosis?: No VTE Prior VTE?: No VTE Risk Level:: Surgical - low VTE Device Contraindication: N/A - Device Ordered VTE Drug Contraindication: N/A - Med Ordered
[2023-08-15] MEDS: oxyCODONE HCl Immed Release 5 MG TABLET PO (10:51)
--- NOTE | 2023-08-15 11:41 | MHC.CM.PN ---
Patient is discharged to home self care. She has arranged for transportation home.
--- NOTE | 2023-08-16 10:32 | P.DS_ITS ---
DS: Providers Provider Date of Service: 08/15/23 Date of admission: 08/11/23 10:33 Primary care physician: Cedric Liao MD Attending physician on admission: Kushal Araya Attending physician on discharge: Kushal Araya DS: Diagnosis Discharge Diagnosis (1) S/P colon resection: Status: Acute DS: Summary Hospital Course Hospital Course: HPI AT ADMISSION: Patient was seen a few weeks ago in consultation during a hospitalization for recurrent diverticulitis. According to the Patient, she has had at least 3 bouts requiring hospitalization. During the original consultation and again now I discussed with her that because of the chronicity/recurring nature of this, she should consider elective resection. Patient had colonoscopy approximately 5 and half years ago. Chart was reviewed and patient evaluated. Elective open sigmoid resection with primary anastomosis was discussed with the patient and she wishes to proceed. All questions were answered. HOSPITAL COURSE: 08/11/23, mini exploratory laparotomy, sigmoid resection, primary colorectal EEA anastomosis, rigid proctoscopy was performed by Dr. Araya without complication. The patient tolerated the procedure well. She had an uncomplicated recovery course. On POD #1 her lopez was removed. She was tolerating clear liquids and was passing flatus and had a small liquid stool. She was ambulated. Her diet was slowly advanced as tolerated further. Her activity was increased. She began to pass continuous flatus. Her pain was well controlled on oral analgesics. She was tolerated a solid diet with benign abdomen and clean incision. She felt ready for discharge. She was discharged to home on 08/15/23 in stable condition. Status at Discharge Functional status at discharge: independent ambulation Overall status at discharge: patient is back to baseline Time Spent with Patient Time attestation: Total time managing care of this patient today ____ minutes. Discharge coordination time: Less than 30 minutes Quality: Safe Use of Opioids Does Pt have an Active Cancer Diagnosis on the Problem List?: No Quality: Stroke Does the patient have a stroke diagnosis?: No Physical Exam Vital Signs: Vital Signs: Last Vital Signs Temp 98.1 F 08/15/23 07:18 Pulse 96 08/15/23 07:18 Resp 16 08/15/23 07:18 BP 132/63 08/15/23 07:18 Pulse Ox 98 08/15/23 07:18 O2 Del Method Room Air 08/15/23 07:18 O2 Flow Rate 2.0 08/11/23 19:05 BMI result Body Mass Index 25.2 Const: General: comfortable, no acute distress and alert Orientation/consciousness: patient oriented x3 Resp: Effort & Inspection: normal respiratory effort GI: Inspection: No distended and Yes incision (clean) Palpation (GI): Soft to palpation and Tenderness to palpation present (GI) (mild incisional) Percussion: Yes normal to percussion Skin: General skin exam: no rashes or lesions noted Neuro: General: patient oriented x3 and moves all extremities DS: Data Data Completed and Pending Completed studies during hospitalization [Text1]: 08/11/23 11:31 Surgical [PTH] Routine Colon, sigmoid, segmental resection: Diverticulosis and fibrosis Discharge Plan Discharge Anticipated Discharge Date/Time: 08/14/23 12:41 Patient Disposition: Home, Self-Care Discharge Diagnosis: Recurrent Diverticulitis Referrals: Name,MD Cedric [Primary Care Provider] - 1 Week Kushal Araya MD [Physician] - 1 Week Discharge Medications: New hydrocodone-acetaminophen 5-325 mg tablet 1 tab PO Q4-6H PRN (Reason: pain) Qty: 30 0RF Rx Instructions: Partial Fill upon patient request. hydrocodone-acetaminophen 5-325 mg tablet 1 tab PO Q4-6H PRN (Reason: pain) Qty: 30 0RF Rx Instructions: Partial Fill upon patient request. Continued levothyroxine 75 mcg tablet 1 tab PO DAILY bisacodyl 5 mg tablet,delayed release (DR/EC) 10 mg PO DAILY lisinopril 10 mg tablet 10 mg PO DAILY Discharge Orders: Discharge Order (Routine); Ordered 08/15/23 Ordered By: Kimberlyn Gaxiola Diet: Advance to usual diet Activity on Discharge: No heavy lifting Stand Alone Forms: Patient Portal Discharge page, Work/School Release Activity Restrictions/Additional Instructions: Apply an ice pack for short intervals (20 minutes on, followed by at least 20 minutes off) for the first 2 days. Do not apply heat. Do not use creams, lotion s, or topical antibiotics. These can cause infection or allergic reaction. Ok to shower 48 hours after your surgery. Remove dressings in 2 days and replace as needed. You have steri strips (small white cloth strips) covering your incision- these will fall off ~1 week. Follow up in office with Dr. Araya in 1 week. ([phone]) No heavy lifting (>10lbs) or strenuous activity! Call Your Doctor If: -Your temperature exceeds 101.5? F -You experience excessive pain or swelling -You have an unexpected reaction to medication -You have excessive bleeding -You experience continued vomiting/nausea -Your incision begins to separate -Your incision shows signs of infection such as increased redness, swelling, excessive pain, drainage (light blood or clear fluid is normal) or heat Care Plan Goals: return to baseline activity Health Concerns: none Plan of Treatment: convalesnce Assessment: stable Discharge Date/Time: 08/15/23 11:10
== END 2023-08-15 11:10 | disposition home or self-care (01) | DRG 231 ==
LOC: HO.SSSA 10:37 → HO.S3 13:14
PROVIDERS: Physician Assistant Surgical; Admitting Provider Surgery; PCP Internal Medicine Geriatric Medicine; Visit Provider Surgery
PROC: 0DBN0ZZ Excision of Sigmoid Colon, Open Approach (ICD-10-PCS; principal; 2023-08-11 09:50)
PROC: 0DJD8ZZ Inspection of Lower Intestinal Tract, Via Natural or Artificial Opening Endoscopic (ICD-10-PCS; CPT 45300; 2023-08-11 09:50)
DX: K57.32 Diverticulitis of large intestine without perforation or abscess without bleeding (principal); E03.9 Hypothyroidism, unspecified; G89.18 Other acute postprocedural pain; Z91.041 Radiographic dye allergy status; Z79.890 Hormone replacement therapy; Z79.899 Other long term (current) drug therapy
CPT/HCPCS: 36415; 80048; 85025; 86850; 86900; 86901; 88307; 93005; C1758; J0131; J1100; J1643; J2270; J2405; J2795; J3010

== ENCOUNTER → 2023-08-11 10:33 | Outpatient (BNV) | payer OTHER, SELFPAY | PROVIDERS: Admitting Provider Surgery; PCP Internal Medicine Geriatric Medicine; Visit Provider Physician Assistant Surgical | DX: Z90.49 Acquired absence of other specified parts of digestive tract (principal) | CPT/HCPCS: 44140; 99024; 99212; 99499 ==

== ENCOUNTER 2023-08-16 11:44 | Outpatient (AMB) | payer OTHER, SELFPAY ==
--- NOTE | 2023-08-16 11:55 | A.OFFVIS_ITS ---
Intake Vital Signs 08/16/23 12:02 Height 5 ft 1 in Weight 135 lb BMI 25.5 BP 141/75 H Blood Pressure Location Rt brachial Position Sitting Pulse 76 Intake Visit Reasons: discharge, redness, chills, post sigmoid resection Intake Note: Patient here c/o pain and bleeding from surgical site on abd. Reports felt body was hot after taking pain medication. 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 She is tolerating her diet. She is passing flatus and some stool. She has moderate incisional pain, which is improving PFSH Medical History Hemorrhoids with complication Endometrial hyperplasia Heartburn GERD (gastroesophageal reflux disease) Skin lesion of back Kidney stone Vitamin D deficiency Hypothyroidism Surgical History Hx of unilateral oophorectomy History of surgery Tubal ligation status Hx of colonoscopy Hx of esophagogastroduodenoscopy Family History Father Hypertension Respiratory failure Mother Pancreatic cancer Social History Household Members: Spouse Housing: Apartment Are you a primary career education teacher to a significant other at home: No Do you presently have visiting nurse or other home services: No Alcohol intake: never Patient Tobacco Use Status: Never used Tobacco Second Hand Smoke Exposure: No service: No Current occupational status: employed Current occupation: [employer] program Sexual orientation: Straight/Heterosexual Gender identity: Female Female Reproductive History Menstrual Age of Menarche: 16 Physical Exam Vital Signs: Last Vital Signs Pulse 76 08/16/23 12:02 BP 141/75 H 08/16/23 12:02 BMI result Body Mass Index 25.5 Patient is afebrile 97.5. GI Other: Abdomen soft. Midline wound healing uneventfully. Most superior aspect of the wound had some serous drainage. This was probed with a Q-tip and no purulence. There is no overlying erythema. Assessment & Plan Assessment & Plan (1) S/P colon resection: Comment: mini exploratory laparotomy, sigmoid resection, primary colorectal EEA anastomosis, rigid proctoscopy 08/11/23 Code(s): Z90.49 - Acquired absence of other specified parts of digestive tract (2) Diverticulitis large intestine: Code(s): K57.32 - Diverticulitis of large intestine without perforation or abscess without bleeding Plan At present, the patient most likely had a seroma which has drained. Nothing to warrant surgical wound exploration or antibiotics. Patient will see me in a few days time for follow-up or p.r.n.. She has been given local instructions. All questions were answered. Coding Level of Care Code Global (19648) Diagnoses S/P colon resection Z90.49 Diverticulitis large intestine K57.32
[2023-08-16 12:02] VITALS: BP 141/75; PULSE 76; BMI 25.5
== END 2023-08-16 12:44 | disposition home or self-care (01) ==
PROVIDERS: PCP Internal Medicine Geriatric Medicine; Visit Provider Surgery
DX: Z90.49 Acquired absence of other specified parts of digestive tract (principal); K57.32 Diverticulitis of large intestine without perforation or abscess without bleeding
CPT/HCPCS: 99024

== ENCOUNTER → 2023-08-16 11:44 | Outpatient (BNVA) | payer OTHER, SELFPAY | PROVIDERS: PCP Internal Medicine Geriatric Medicine; Visit Provider Surgery ==

== ENCOUNTER 2023-08-23 10:22 | Outpatient (AMB) | payer OTHER, SELFPAY ==
[2023-08-23 10:38] VITALS: BP 122/62; PULSE 66
--- NOTE | 2023-08-23 10:38 | MHC.OFFVIS ---
Intake Vital Signs 08/23/23 10:38 Weight 135 lb BP 122/62 Blood Pressure Location Lt brachial Position Sitting Pulse 66 Intake Visit Reasons: wound check, open Intake Note: Patient here for wound check. C/o on and off abd pain. Allergies ceftriaxone Allergy (Severe, Verified 08/16/23 11:57) Anaphylaxis Iodinated Contrast Media [IV Contrast Dye] Allergy (Severe, Verified 08/16/23 11:57) Anaphylaxis magnesium hydroxide [From Milk of Magnesia] Allergy (Intermediate, Verified 08/16/23 11:57) Rash HPI HPI Comments History of Present Illness Details Patient presents with her son-in-law. She is tolerating a diet. She is having regular bowel habits. She is having discomfort at the upper part of her incision. Activity level is slowly improving. PFS Medical History Hemorrhoids with complication Endometrial hyperplasia Heartburn GERD (gastroesophageal reflux disease) Skin lesion of back Kidney stone Vitamin D deficiency Hypothyroidism Surgical History Hx of unilateral oophorectomy History of surgery Tubal ligation status Hx of colonoscopy Hx of esophagogastroduodenoscopy Family History Father Hypertension Respiratory failure Mother Pancreatic cancer Social History Household Members: Spouse Housing: Apartment Are you a primary complex care nurse to a significant other at home: No Do you presently have visiting nurse or other home services: No Alcohol intake: never Patient Tobacco Use Status: Never used Tobacco Second Hand Smoke Exposure: No service: No Current occupational status: employed Current occupation: [employer] Sexual orientation: Straight/Heterosexual Gender identity: Female Female Reproductive History Menstrual Age of Menarche: 16 Physical Exam Vital Signs: Last Vital Signs Pulse 66 08/23/23 10:38 BP 122/62 08/23/23 10:38 GI Other: Patient has separation of approximately 2 cm of the upper part of her incision. Remaining incision is clean dry and intact and healing by 1st intention. The upper portion was probed with a Q-tip and superficial with granulating tissue. No evidence of any purulence. Dressing was applied. Assessment & Plan Assessment & Plan (1) Seroma due to trauma: Code(s): T79.2XXA - Traumatic secondary and recurrent hemorrhage and seroma, initial encounter Plan Patient has subtle have been given local instructions including daily showers with dressing changes. Patient should increase her activity level as tolerated but avoid strenuous /heavy lifting. Patient will see me as directed or p.r.n.. Coding Level of Care Code Global (73875) Diagnoses Seroma due to trauma T79.2XXA
== END 2023-08-23 10:41 | disposition home or self-care (01) ==
PROVIDERS: PCP Internal Medicine Geriatric Medicine; Visit Provider Surgery
DX: T79.2XXA Traumatic secondary and recurrent hemorrhage and seroma, initial encounter (principal)
CPT/HCPCS: 99024

== ENCOUNTER → 2023-08-23 10:22 | Outpatient (BNVA) | payer OTHER, SELFPAY | PROVIDERS: PCP Internal Medicine Geriatric Medicine; Visit Provider Surgery ==

== ENCOUNTER 2023-09-05 08:54 | Outpatient (AMB) | payer OTHER, MEDICAID, SELFPAY ==
--- NOTE | 2023-09-05 08:57 | A.OFFVIS_ITS ---
Intake Vital Signs 09/05/23 08:59 Height 5 ft 1 in Weight 126 lb 15.78 oz BMI 24.0 BP 138/85 Blood Pressure Location Rt brachial Position Sitting Pulse 81 Intake Visit Reasons: 5 week follow up Intake Note: Crecencia presents in office today in follow up diverticulitis. CC: Patient underwent exploratory laparotomy, sigmoid resection, primary colorectal EEA anastomosis, and rigid proctoscopy on 08/11/23. Patient reports BM every other day. Denies having any new GI symptoms or concerns. Occupational Health Specialist Required: Yes Occupational Health Specialist Language: Assistant Manager Name: son in law Accompanied by: Self / Same As Patient Allergies ceftriaxone Allergy (Severe, Verified 09/05/23 09:40) Anaphylaxis Iodinated Contrast Media [IV Contrast Dye] Allergy (Severe, Verified 09/05/23 09:40) Anaphylaxis magnesium hydroxide [From Milk of Magnesia] Allergy (Intermediate, Verified 09/05/23 09:40) Rash HPI 5 week follow up HPI Details LAST VISIT Chronic idiopathic constipation Continue Dulcolax and Colace. Patient was encouraged to increase fluid intake and activity to promote better bowel motility. Diverticulitis History of diverticulitis. Hospitalized several times in the past couple years. Patient has surgery scheduled for colon resection on the 28 of [address] month with Dr. Araya Tubular adenoma Tubular adenoma found without high-grade dysplasia or carcinoma. Repeat colonoscopy in 5 years, sooner if clinically necessary. Patient is agreeable to this plan and verbalizes understanding of instructions. She was given the opportunity to ask questions and all questions answered. TODAY'S VISIT Patient is here today for follow-up. Patient is accompanied by her son-in-law. Patient reports that she has been doing well after surgery. Patient is moving her bowels every other day or so. Using Colace on as needed basis. Patient reports incisional abdominal pain. Patient denies abdominal bloating. Patient reports that she has been having good appetite. Patient denies melena, hematochezia, unintentional weight loss or ribbon like stools. Denies any dyspepsia, dysphagia or odynophagia. Patient has an appointment with Dr. Araya today. ? PFSH Medical History Hemorrhoids with complication Endometrial hyperplasia Heartburn GERD (gastroesophageal reflux disease) Skin lesion of back Kidney stone Vitamin D deficiency Hypothyroidism Surgical History Hx of unilateral oophorectomy History of surgery Tubal ligation status Hx of colonoscopy Hx of esophagogastroduodenoscopy Family History Father Hypertension Respiratory failure Mother Pancreatic cancer Social History Household Members: Spouse Housing: Apartment Are you a primary clinical care manager to a significant other at home: No Do you presently have visiting nurse or other home services: No Alcohol intake: never Patient Tobacco Use Status: Never used Tobacco Second Hand Smoke Exposure: No service: No Current occupational status: employed Current occupation: [employer] Sexual orientation: Straight/Heterosexual Gender identity: Female Female Reproductive History Menstrual Age of Menarche: 16 Review of Systems Const Denies weight gain and Denies weight loss ENT Reports no additional complaints, Denies dysphagia and Denies odynophagia Card Reports no additional complaints Resp Reports no additional complaints GI Reports abdominal pain (Incisional pain), Denies belching, Denies melena, Denies bloating, Denies change in bowel habits, Reports constipation (Occasional), Denies dysphagia, Denies excessive flatus, Denies dyspepsia, Denies heartburn, Denies diarrhea, Denies loose stools, Denies nausea, Denies odynophagia and Denies vomiting Reports no additional complaints Musc Reports no additional complaints Neuro Reports no additional complaints Psych Reports no additional complaints Endo Reports no additional complaints Physical Exam Vital Signs: BMI result Body Mass Index 24.0 Const General: healthy appearing, no acute distress and well developed Nutritional Appearance: well nourished Orientation/consciousness: patient oriented x3 HEENT Head: Yes normal to inspection, Yes normocephalic and Yes atraumatic Face and sinus: Yes normal facial exam Mouth: Normal oral and palatal mucosa present Throat: Yes posterior oropharynx normal, Yes tonsils normal and Yes uvula midline Eyes General: appearance normal, both eyes and all related structures Neck Neck: Yes normal visual inspection, Yes full ROM and Yes trachea midline Thyroid: Thyroid normal Resp Effort & Inspection: normal respiratory effort, able to speak in complete sentences, no tracheal deviation and symmetric chest movement Auscultation: clear to auscultation bilaterally Cardio Rate: regular rate Heart sounds: S1 normal heart sound present and S2 normal heart sound present GI Other: Clean and dry dressing over abdominal incision. S/p surgery Inspection: No distended Palpation (GI): Soft to palpation, not firm, nontender and No hepatosplenomegaly present Auscultation: normal bowel sounds General: Yes no CVA tenderness Back/Spine/Pelvis Back: no CVA tenderness Skin General skin exam: elasticity normal, turgor normal and dry skin Neuro General: patient oriented x3 Psych Appearance: grossly normal Mental Status: mental status grossly normal Assessment & Plan Assessment & Plan (1) Chronic idiopathic constipation: Code(s): K59.04 - Chronic idiopathic constipation (2) Diverticulitis: Code(s): K57.92 - Diverticulitis of intestine, part unspecified, without perforation or abscess without bleeding (3) S/P colon resection: Comment: mini exploratory laparotomy, sigmoid resection, primary colorectal EEA anastomosis, rigid proctoscopy 08/11/23 Code(s): Z90.49 - Acquired absence of other specified parts of digestive tract (4) Diverticulitis large intestine: Code(s): K57.32 - Diverticulitis of large intestine without perforation or abscess without bleeding Qualifiers: Diverticulitis bleeding: without bleeding Diverticulitis complication: without perforation or abscess Qualified Code(s): K57.32 - Diverticulitis of large intestine without perforation or abscess without bleeding Plan Discussed with patient the importance of taking Colace daily. Patient is doing well otherwise. Patient was encouraged to increase fiber in her diet and increase fluid intake. Patient will follow-up in the office in 3 months, sooner on as needed basis. Patient is agreeable to this plan and verbalizes understanding of instructions. She was given the opportunity to ask questions and all questions answered. Thank you for allowing me to participate in her care Medications: New docusate sodium 100 mg PO BEDTIME 90 caps 3RF K59.00 - Constipation, unspecified bisacodyl 10 mg (2 x 5 mg) PO DAILY 60 tabs 2RF Coding Level of Care Code Est Pt Level 3 (18142) Diagnoses Chronic idiopathic constipation K59.04 Diverticulitis K57.92 S/P colon resection Z90.49 Diverticulitis of large intestine without perforation or abscess without bleeding K57.32 Diverticulitis bleeding: without bleeding Diverticulitis complication: without perforation or abscess Time Spent (min) 30 Comment 20 minutes with patient and additional 10 minutes spent reviewing her records.
[2023-09-05 08:59] VITALS: BP 138/85; PULSE 81; BMI 24.0
== END 2023-09-05 09:47 | disposition home or self-care (01) ==
PROVIDERS: PCP Internal Medicine Geriatric Medicine; Visit Provider Nurse Practitioner Family
DX: K59.04 Chronic idiopathic constipation (principal); K57.92 Diverticulitis of intestine, part unspecified, without perforation or abscess without bleeding; Z90.49 Acquired absence of other specified parts of digestive tract; K57.32 Diverticulitis of large intestine without perforation or abscess without bleeding
CPT/HCPCS: 99213

== ENCOUNTER → 2023-09-05 08:54 | Outpatient (BNVA) | payer OTHER, SELFPAY | PROVIDERS: PCP Internal Medicine Geriatric Medicine; Visit Provider Nurse Practitioner Family | DX: K57.92 Diverticulitis of intestine, part unspecified, without perforation or abscess without bleeding (principal); K59.04 Chronic idiopathic constipation; Z90.49 Acquired absence of other specified parts of digestive tract; K57.32 Diverticulitis of large intestine without perforation or abscess without bleeding | CPT/HCPCS: 99212 ==

== ENCOUNTER 2023-09-05 09:32 | Outpatient (AMB) | payer OTHER, SELFPAY ==
[2023-09-05 09:38] VITALS: BP 129/84; PULSE 86
--- NOTE | 2023-09-05 09:38 | MHC.OFFVIS ---
Intake Vital Signs 09/05/23 09:38 Weight 127 lb BP 129/84 Blood Pressure Location Rt brachial Position Sitting Pulse 86 Intake Visit Reasons: wound check, open Intake Note: Patient here for wound check. S/p umbilical hernia on . Reports starting to feel better. Only taking ibuprofen 500mg. Car Rental Sales Assistant Required: No Accompanied by: Self / Same As Patient Allergies ceftriaxone Allergy (Severe, Verified 09/05/23 09:40) Anaphylaxis Iodinated Contrast Media [IV Contrast Dye] Allergy (Severe, Verified 09/05/23 09:40) Anaphylaxis magnesium hydroxide [From Milk of Magnesia] Allergy (Intermediate, Verified 09/05/23 09:40) Rash HPI HPI Comments History of Present Illness Details Patient presents with her son-in-law. She is doing quite well. She has time diet. He is having regular bowel habits. She has minimal incisional discomfort. She is increasing her activity level. She is undergoing local wound care to superior aspect of her incision. [facility] Medical History Hemorrhoids with complication Endometrial hyperplasia Heartburn GERD (gastroesophageal reflux disease) Skin lesion of back Kidney stone Vitamin D deficiency Hypothyroidism Surgical History Hx of unilateral oophorectomy History of surgery Tubal ligation status Hx of colonoscopy Hx of esophagogastroduodenoscopy Family History Father Hypertension Respiratory failure Mother Pancreatic cancer Social History Household Members: Spouse Housing: Apartment Are you a primary direct care professional to a significant other at home: No Do you presently have visiting nurse or other home services: No Alcohol intake: never Patient Tobacco Use Status: Never used Tobacco Second Hand Smoke Exposure: No service: No Current occupational status: employed Current occupation: [employer] Sexual orientation: Straight/Heterosexual Gender identity: Female Female Reproductive History Menstrual Age of Menarche: 16 Physical Exam Vital Signs: Last Vital Signs Pulse 86 09/05/23 09:38 BP 129/84 09/05/23 09:38 GI Other: Abdomen soft. Most superior aspect incision has approximately 2 cm area which is granulating very well. Remaining incision is clean dry and intact with good 1st intention healing Assessment & Plan Assessment & Plan (1) Diverticulitis: Code(s): K57.92 - Diverticulitis of intestine, part unspecified, without perforation or abscess without bleeding Plan Patient has been given local instructions, and will follow-up p.r.n.. Coding Level of Care Code Global (00474) Diagnoses Diverticulitis K57.92
== END 2023-09-05 09:55 | disposition home or self-care (01) ==
PROVIDERS: PCP Internal Medicine Geriatric Medicine; Visit Provider Surgery
DX: K57.92 Diverticulitis of intestine, part unspecified, without perforation or abscess without bleeding (principal)
CPT/HCPCS: 99024

== ENCOUNTER 2023-09-23 13:21 | Outpatient (REF) | payer MEDICAID, SELFPAY ==
[2023-09-23 13:33] LABS: Appearance Urine Clear; Color Urine Yellow; Glucose Urine UA Negative (Negative); Leukocyte Esterase Urine Negative (Negative); Nitrite Urine Negative (Negative); UMIC TRIGGER UACC YES; Urine Blood Negative (Negative); Urine Ketones Negative (Negative); Urine Protein 30 (1+) mg/dL (Neg-Trace)
[2023-09-23 13:38] LABS: Bacteria Urine None Seen (None Seen); Hyaline Casts Urine 0-2 /LPF (0-2); RBC Urine 0-2 /HPF (0-2); Squamous Epithelial Cell Urine 0-2 /HPF (0-2); WBC Urine 0-5 /HPF (0-5)
== END 2023-09-23 13:22 | disposition home or self-care (01) ==
LOC: HO.HHCLNP 13:21
PROVIDERS: Visit Provider Internal Medicine Geriatric Medicine
DX: R30.0 Dysuria (principal)
CPT/HCPCS: 81001

== ENCOUNTER 2023-11-21 12:32 | Outpatient (AMB) | payer OTHER, SELFPAY ==
[2023-11-21 12:34] VITALS: BP 132/80; BMI 26.0
--- NOTE | 2023-11-21 12:34 | MHC.OFFVIS ---
Intake Vital Signs 11/21/23 12:34 Height 5 ft 1 in Weight 137 lb 8 oz BMI 26.0 BP 132/80 Intake Visit Reasons: vag itch Intake Note: vaginal itching x 2 mos. Chief Of Anesthesiology Required: Yes Information Interpreted: non-clinical & clinical Allergies ceftriaxone Allergy (Severe, Verified 09/05/23 09:40) Anaphylaxis Iodinated Contrast Media [IV Contrast Dye] Allergy (Severe, Verified 09/05/23 09:40) Anaphylaxis magnesium hydroxide [From Milk of Magnesia] Allergy (Intermediate, Verified 09/05/23 09:40) Rash Medication List - Last Reconciled 11/21/23 by Uma Murray LPN bisacodyl 10 mg (2 x 5 mg) PO DAILY docusate sodium 100 mg PO BEDTIME levothyroxine 1 tab PO DAILY lisinopril 10 mg PO DAILY Is last menstrual period known: No Post menopausal: Yes Patient : No Do you need a note to return to daycare/school/sports/work: No HPI HPI Comments History of Present Illness Details Presenting complaining of vulvovaginal itchy over the last few months with no associated vaginal discharge or odor PFSH Medical History Hemorrhoids with complication Endometrial hyperplasia Heartburn GERD (gastroesophageal reflux disease) Skin lesion of back Kidney stone Vitamin D deficiency Hypothyroidism Surgical History Hx of unilateral oophorectomy History of surgery Tubal ligation status Hx of colonoscopy Hx of esophagogastroduodenoscopy Family History Father Hypertension Respiratory failure Mother Pancreatic cancer Social History Household Members: Spouse Housing: Apartment Are you a primary manager progressive care to a significant other at home: No Do you presently have visiting nurse or other home services: No Alcohol intake: never Patient Tobacco Use Status: Never used Tobacco Second Hand Smoke Exposure: No Patient : No service: No Current occupational status: employed Current occupation: [employer] Sexual orientation: Straight/Heterosexual Gender identity: Female Female Reproductive History Menstrual Age of Menarche: 16 Review of Systems Const All systems reviewed & are unremarkable except as noted in HPI and below Physical Exam Vital Signs: Last Vital Signs BP 132/80 11/21/23 12:34 BMI result Body Mass Index 26.0 General: Yes no CVA tenderness External Female Exam: normal external appearance and normal appearance of the urethra Speculum Exam - Vagina: normal appearance of the vagina, normal palpation, no lesions and no masses Speculum Exam - Cervix: normal appearance of the cervix, normal palpation, no lesions, no masses and nontender Bimanual exam- vagina & uterus: normal bimanual exam, normal palpation, uterine size normal, normal palpation, uterine shape normal, No Cervical tenderness present and non-tender Bimanual Exam- Adnexa, other: normal adnexae Back/Spine/Pelvis Back: no CVA tenderness Assessment & Plan Assessment & Plan (1) Vulvovaginitis: Comment: Miriam versus atrophic Code(s): N76.0 - Acute vaginitis Plan: GC/CT, Bacterial Vaginosis panel taken, Terazol 0.8% q.h.s. for 3 days was sent to the patient's pharmacy. The patient was instructed to call if symptoms don't improve in 48 hours will consider estrogen cream for short periods time since the patient has history of endometrial hyperplasia that reversed back to normal in 2019. All questions answered, the patient verbalized understanding and agreed with the plan. Medications: New terconazole 0.8% 1 appful vaginal BEDTIME 20 grams 0RF 3 days Coding Level of Care Code Est Pt Level 3 (29292) Diagnoses Vulvovaginitis N76.0
== END 2023-11-21 13:07 | disposition home or self-care (01) ==
LOC: HO.HWS 12:32
PROVIDERS: PCP Internal Medicine Geriatric Medicine; Visit Provider Obstetrics & Gynecology
DX: N76.0 Acute vaginitis (principal)
CPT/HCPCS: 99213

== ENCOUNTER 2023-11-21 12:32 | Outpatient (REF) | payer MEDICAID, SELFPAY ==
[2023-11-22 02:30] LABS: CT PCR NOT DETECTED (Not Detect.); NG PCR NOT DETECTED (Not Detect.)
[2023-11-22 10:53] LABS: BV Int Neg Control Negative (Negative); BV Int Pos Control Positive (Positive)
== END 2023-11-21 12:33 | disposition home or self-care (01) ==
LOC: HO.LNP 12:32
PROVIDERS: PCP Internal Medicine Geriatric Medicine; Visit Provider Obstetrics & Gynecology
DX: N76.0 Acute vaginitis (principal)
CPT/HCPCS: 0353U; 87480; 87510; 87660; 99212

== ENCOUNTER 2023-11-26 15:12 | Emergency (ER) | payer OTHER, SELFPAY ==
--- NOTE | 2023-11-26 16:24 | ED.GENADULT ---
HPI - General Adult General Chief complaint: Urogenital-Female Stated complaint: Front body rash/haven't gone bathroom in 3 days Time Seen by Provider: 11/27/23 00:32 Source: patient Mode of arrival: ambulatory Limitations: language barrier (Greenlandic speaking only, contact clerk used) History of Present Illness HPI narrative: 53-year-old female who presents emergency department for evaluation of urinary frequency, dysuria and vaginal pruritus. Patient states she has had the symptoms for 3 days. She states that she has a burning sensation when she urinates, she is urinating frequently. She states that she has severe itchiness in the urethral area. Patient has not had a vaginal discharge. Patient was seen by her electronic pagination system operator, Dr. Simons on 11/21/2023 and diagnosed with vulvovaginitis that candidiasis versus atrophic. Patient was started on Ruelas's all 0.8% vaginal cream at night x3 days. Patient states she is used this cream but is not improved her symptoms. Patient has also been using Vagisil with some improvement of her symptoms. Patient denied fever or chills but states that she is very anxious and is having difficulty sleeping at night. I did reveal the patient's vaginal serology tests from 11/21/2023: Candidiasis , Trichomonas, Gardnerella, gonorrhea, Trichomonas were all negative. Related Data Home Medications Medication Instructions Recorded Confirmed lisinopril 10 mg tablet 10 mg PO DAILY 09/14/22 11/21/23 levothyroxine 75 mcg tablet 1 tab PO DAILY 12/23/22 11/21/23 Previous Rx's Medication Instructions Recorded bisacodyl 5 mg tablet,delayed 10 mg (2 x 5 mg) PO DAILY #60 tabs 09/05/23 release docusate sodium 100 mg capsule 100 mg PO BEDTIME #90 caps 09/05/23 terconazole 0.8 % vaginal cream 1 appful vaginal BEDTIME 3 days 11/21/23 #20 grams phenazopyridine 200 mg tablet 200 mg PO TID PRN Burning with 11/27/23 (Pyridium) urination 3 days #9 tabs Allergies Allergy/AdvReac Type Severity Reaction Status Date / Time ceftriaxone Allergy Severe Anaphylaxis Verified 09/05/23 09:40 Iodinated Contrast Media Allergy Severe Anaphylaxis Verified 09/05/23 09:40 [IV Contrast Dye] magnesium hydroxide Allergy Intermediate Rash Verified 09/05/23 09:40 [From Milk of Magnesia] Review of Systems Review of Systems: Yes all other systems are reviewed and are negative PMFSH Past Medical History Onset Date is defined in the Problem List Problems that require an onset date and time if occurred within 24 hrs of arrival to the ED Aortic Dissection and Rupture; Neurologic impairment; Cardiopulmonary Arrest; Endotracheal Intubation; Insertion or Replacement of Mechanical Circulatory Assist Device Medical History Hemorrhoids with complication Endometrial hyperplasia Heartburn GERD (gastroesophageal reflux disease) Skin lesion of back Kidney stone Vitamin D deficiency Hypothyroidism Surgical History Hx of unilateral oophorectomy History of surgery Tubal ligation status Hx of colonoscopy Hx of esophagogastroduodenoscopy Family History Family History Father Hypertension Respiratory failure Mother Pancreatic cancer Social History Social History Household Members: Spouse Housing: Apartment Are you a primary intensive care nurse to a significant other at home: No Do you presently have visiting nurse or other home services: No Alcohol intake: never Patient Tobacco Use Status: Never used Tobacco Second Hand Smoke Exposure: No Advance Directives: No Advance Directives Information Provided: No service: No Current occupational status: employed Current occupation: [employer] program Sexual orientation: Straight/Heterosexual Gender identity: Female Physical Exam ED Vital Signs: Vital Signs - 24 hr 11/26/23 16:25 11/26/23 21:09 11/27/23 00:23 Temperature 98.2 F 97.6 F 97.0 F Pulse Rate 83 77 85 Respiratory Rate 16 16 16 Blood Pressure 151/83 H 128/80 129/79 Pulse Oximetry 98 98 97 Oxygen Delivery Method Room Air Room Air Room Air BMI result Body Mass Index 26.4 Vital signs initially revealed an elevated blood pressure 151/83 but this improved without treatment. Vital signs otherwise normal Exam: General: Awake, alert in no distress Abdomen: soft, non-tender, nondistended, normal bowel sounds External vaginal exam: Normal appearing vulva, urethra appears to be normal no obvious vaginal discharge, tenderness with palpation over the urethra but otherwise no tenderness palpation over the vulva Psych: Pleasant, cooperative, anxious Course Course Course Narrative: This is an RME: Additional HPI, ROS, PE not included below will be deferred to primary provider. This is a [id number]-Greenlandic speaking female, with a history of diverticulitis, hypothyroidism, chronic constipation, hypertension, presenting to the emergency department with a complaint of urinary frequency x 2 days. Also having some ?vuvovaginal swelling and stinging. Plan: UA will need ?pelvic exam due to swelling Medical Decision Making Medical Decision Making [facility] Narrative: 53-year-old female who presents emergency department for evaluation of urinary frequency, dysuria and vaginal pruritus x3 days. Vital signs unremarkable. Examination revealed no abdominal tenderness and external vaginal exam was normal. Patient was seen by her electronic pagination system operator on 11/21/2019 for in treated with antifungal vaginal cream with no improvement of her symptoms. Serology testing gynecology exam was negative for gonorrhea, chlamydia, candidiasis, Gardnerella and Trichomonas. Patient's urinalysis was normal. At this time I do not think the patient has an infectious process and has nonspecific dysuria/vaginitis. Patient was started on Pyridium 200 mg 3 times a day as needed for dysuria. She was advised to contact her electronic pagination system operator for follow-up this week for re-evaluation and possible treatment with estrogen cream as per their note on 11/21/2023. Patient was given printed and verbal instructions discharged home Differential Diagnosis Differential Diagnoses: The differential diagnosis associated with the presentation includes Differential diagnosis includes was not limited to urethritis, urinary tract infection, vaginitis Lab Data [facility] Lab Attestation statement: I reviewed the patient's lab results. My interpretation patient's laboratory evaluation is as follows: Urinalysis was negative Labs: Lab Results 11/26/23 Range/Units 20:09 Urine Color Yellow Urine Appearance Clear Urine pH 6.0 (5.0-9.0) Ur Specific [place] 1.010 (1.005-1.025) Urine Protein Trace (Neg-Trace) mg/dL Urine Glucose (UA) Negative (Negative) mg/dL Urine Ketones Negative (Negative) mg/dL Urine Blood Negative (Negative) Urine Nitrite Negative (Negative) Ur Leukocyte Esterase Negative (Negative) Independent Historian Clinical information obtained from an independent historian. History obtained from or confirmed by: Spouse External Record Review External record reviewed: Office record (Gynecology, Dr. Simons office note 11/21/2023) Discharge Plan Discharge Clinical Impression: Dysuria Instructions: Dysuria (ED) Additional Instructions: Your urine today was negative for infection. The vaginal/cervical swabs from your gynecology exam on 11/21/2023 were all negative which is reassuring. At this time I do not think that you have an infection or kidney stone as the cause of your symptoms. The electronic pagination system operator did recommend that you follow-up with them if you were not better and they were going to try a estrogen cream to see if this improves your symptoms. Please call the electronic pagination system operator on Tuesday for a follow-up appointment for re-evaluation. Take Pyridium 200 mg pills, 1 pill 3 times a day for 4 days. This medication may help with the itchiness and burning sensation when you urinate. This medication will make your urine turn orange. Also continue to use the Vagisil cream to see if this helps. Follow-up with Dr. Simons within 1 week. Please return to the emergency department if your symptoms get worse or if you develop any symptoms that are concerning to you. Prescriptions: New phenazopyridine [Pyridium] 200 mg tablet 200 mg PO TID PRN (Reason: Burning with urination) 3 Days Qty: 9 0RF No Action levothyroxine 75 mcg tablet 1 tab PO DAILY lisinopril 10 mg tablet 10 mg PO DAILY terconazole 0.8 % cream 1 appful vaginal BEDTIME 3 Days Qty: 20 0RF docusate sodium 100 mg capsule 100 mg PO BEDTIME Qty: 90 3RF bisacodyl 5 mg tablet,delayed release (DR/EC) 10 mg PO DAILY Qty: 60 2RF Referrals: Delbert Simons MD [Physician] - 1 week (Dysuria, urethral pruritus) Print Language: Greenlandic
[2023-11-26 16:25] VITALS: BP 151/83; PULSE 83; RESP 16; TEMP 36.8; O2SAT 98; BMI 26.4
--- NOTE | 2023-11-26 20:06 | MHC.EDTECH ---
Urine sample collected and sent to lab.
[2023-11-26 20:18] LABS: Appearance Urine Clear; Color Urine Yellow; Glucose Urine UA Negative (Negative); Leukocyte Esterase Urine Negative (Negative); Nitrite Urine Negative (Negative); Urine Blood Negative (Negative); Urine Ketones Negative (Negative); Urine Protein Trace mg/dL (Neg-Trace)
[2023-11-26 21:09] VITALS: BP 128/80; PULSE 77; RESP 16; TEMP 36.4; O2SAT 98
[2023-11-27 00:23] VITALS: BP 129/79; PULSE 85; RESP 16; TEMP 36.1; O2SAT 97
[2023-11-27] MEDS: Phenazopyridine HCL 200 MG TABLET PO (01:14)
[2023-11-27 01:20] VITALS: BP 119/76; PULSE 74; RESP 18; TEMP 36.3; O2SAT 96
== END 2023-11-27 01:22 | disposition home or self-care (01) ==
PROVIDERS: Physician Assistant Medical; Emergency Provider Emergency Medicine Emergency Medical Services; PCP Internal Medicine Geriatric Medicine
DX: R30.0 Dysuria (principal)
CPT/HCPCS: 81003; 99283; 99284

== ENCOUNTER 2023-12-06 09:53 | Outpatient (AMB) | payer OTHER, SELFPAY ==
--- NOTE | 2023-12-06 09:57 | MHC.OFFVIS ---
Intake Vital Signs 12/06/23 10:00 Height 5 ft 1 in Weight 138 lb 14.259 oz BMI 26.2 BP 129/77 Blood Pressure Location Lt brachial Position Sitting Pulse 86 Intake Visit Reasons: 3 month follow up Intake Note: Peyton presents in the office as a 3 month follow up. CC: She states that she is not having any concerns at this time. Lunch Truck Operator Required: Yes Lunch Truck Operator Name: [id number] Allergies ceftriaxone Allergy (Severe, Verified 12/06/23 10:00) Anaphylaxis Iodinated Contrast Media [IV Contrast Dye] Allergy (Severe, Verified 12/06/23 10:00) Anaphylaxis magnesium hydroxide [From Milk of Magnesia] Allergy (Intermediate, Verified 12/06/23 10:00) Rash HPI 3 month follow up HPI Details LAST VISIT: Chronic idiopathic constipation Diverticulitis S/P colon resection Diverticulitis large intestine Plan Discussed with patient the importance of taking Colace daily. Patient is doing well otherwise. Patient was encouraged to increase fiber in her diet and increase fluid intake. Patient will follow-up in the office in 3 months, sooner on as needed basis. Patient is agreeable to this plan and verbalizes understanding of instructions. She was given the opportunity to ask questions and all questions answered. ? Thank you for allowing me to participate in her care Medications New docusate sodium 100 mg PO BEDTIME 90 caps 3RF K59.00 bisacodyl 10 mg (2 x 5 mg) PO DAILY 60 tabs 2RF TODAY'S VISIT: Patient is here today for follow-up. Patient reports that she has been feeling better, however she continues to be little constipated. Patient states that she ran out of Colace. Continues to take Dulcolax tablets. Occasional left lower quadrant discomfort without any melena, hematochezia. Patient denies any diarrhea. Patient reports that occasionally when she is constipated she will have blood after bowel movement, however denies blood in his stool only when she wipes. Patient denies any nausea or vomiting. Patient denies any dyspepsia, dysphagia or odynophagia. Patient reports that she is eating high-fiber diet. PENDING SALE TO [facility] Medical History Hemorrhoids with complication Endometrial hyperplasia Heartburn GERD (gastroesophageal reflux disease) Skin lesion of back Kidney stone Vitamin D deficiency Hypothyroidism Surgical History Hx of unilateral oophorectomy History of surgery Tubal ligation status Hx of colonoscopy Hx of esophagogastroduodenoscopy Family History Father Hypertension Respiratory failure Mother Pancreatic cancer Social History Household Members: Spouse Housing: Apartment Are you a primary acute care certified nursing assistant to a significant other at home: No Do you presently have visiting nurse or other home services: No Alcohol intake: never Patient Tobacco Use Status: Never used Tobacco Second Hand Smoke Exposure: No service: No Current occupational status: employed Current occupation: [employer] program Sexual orientation: Straight/Heterosexual Gender identity: Female Female Reproductive History Menstrual Age of Menarche: 16 Review of Systems Const Denies weight gain and Denies weight loss ENT Reports no additional complaints, Denies dysphagia and Denies odynophagia Card Reports no additional complaints Resp Reports no additional complaints GI Denies abdominal pain, Denies belching, Denies melena, Denies bloating, Reports constipation, Denies dysphagia, Denies excessive flatus, Denies dyspepsia, Denies heartburn, Denies diarrhea, Denies loose stools, Denies nausea, Denies odynophagia and Denies vomiting Reports no additional complaints Musc Reports no additional complaints Neuro Reports no additional complaints Psych Reports no additional complaints Endo Reports no additional complaints Physical Exam Vital Signs: Last Vital Signs Pulse 86 12/06/23 10:00 BP 129/77 12/06/23 10:00 BMI result Body Mass Index 26.2 Const General: healthy appearing, no acute distress and well developed Nutritional Appearance: well nourished Orientation/consciousness: patient oriented x3 Resp Effort & Inspection: normal respiratory effort, able to speak in complete sentences, no tracheal deviation and symmetric chest movement Auscultation: clear to auscultation bilaterally Cardio Rate: regular rate GI Inspection: Yes normal to inspection and No distended Palpation (GI): Soft to palpation, not firm, nontender and No hepatosplenomegaly present Auscultation: normal bowel sounds General: Yes no CVA tenderness Back/Spine/Pelvis Back: no CVA tenderness Skin General skin exam: elasticity normal, turgor normal and dry skin Neuro General: patient oriented x3 Psych Appearance: grossly normal Mental Status: mental status grossly normal Assessment & Plan Assessment & Plan (1) Chronic idiopathic constipation: Code(s): K59.04 - Chronic idiopathic constipation (2) Diverticulitis: Code(s): K57.92 - Diverticulitis of intestine, part unspecified, without perforation or abscess without bleeding (3) S/P colon resection: Code(s): Z90.49 - Acquired absence of other specified parts of digestive tract (4) Diverticulitis large intestine: Code(s): K57.32 - Diverticulitis of large intestine without perforation or abscess without bleeding Qualifiers: Diverticulitis bleeding: without bleeding Diverticulitis complication: without perforation or abscess Qualified Code(s): K57.32 - Diverticulitis of large intestine without perforation or abscess without bleeding Plan History of diverticulitis. Stressed the importance of drinking plenty fluids and increase activity to promote better bowel motility. High-fiber diet discussed with patient as well. Patient will continue taking Dulcolax tablets and to Colace to help her move her bowels better. Script for Anusol suppository and Proctosol cream sent to pharmacy. Patient will follow-up in the office in 3 months, sooner on as needed basis. Patient is agreeable to plan of care and verbalizes understanding of instructions. She was given the opportunity to ask questions and all questions answered. Thank you for allowing me to participate in her care Medications: New hydrocortisone acetate (Anucort-HC) 25 mg ME BID 24 ea 2RF hydrocortisone 2.5% (Proctosol HC) 1 appl ME BID-QID PRN 30 grams 2RF hemorrhoids K64.9 - Unspecified hemorrhoids Changed From docusate sodium 100 mg PO BEDTIME 90 caps 3RF K59.00 - Constipation, unspecified To docusate sodium 200 mg (2 x 100 mg) PO BEDTIME 180 caps 3RF K59.00 - Constipation, unspecified Refilled docusate sodium 100 mg PO BEDTIME 90 caps 3RF K59.00 - Constipation, unspecified bisacodyl 10 mg (2 x 5 mg) PO DAILY 60 tabs 2RF Discontinued phenazopyridine (Pyridium) Discontinued Reason: Patient Completed Course 200 mg PO TID 3 days PRN 9 tabs 0RF Burning with urination Coding Level of Care Code Est Pt Level 3 (09989) Diagnoses Chronic idiopathic constipation K59.04 Diverticulitis K57.92 S/P colon resection Z90.49 Diverticulitis of large intestine without perforation or abscess without bleeding K57.32 Diverticulitis bleeding: without bleeding Diverticulitis complication: without perforation or abscess Time Spent (min) 25 Comment 15 minutes spent with patient and additional 10 minutes spent reviewing her records
[2023-12-06 10:00] VITALS: BP 129/77; PULSE 86; BMI 26.2
== END 2023-12-06 10:33 | disposition home or self-care (01) ==
PROVIDERS: PCP Internal Medicine Geriatric Medicine; Visit Provider Nurse Practitioner Family
DX: K59.04 Chronic idiopathic constipation (principal); K57.92 Diverticulitis of intestine, part unspecified, without perforation or abscess without bleeding; Z90.49 Acquired absence of other specified parts of digestive tract; K57.32 Diverticulitis of large intestine without perforation or abscess without bleeding
CPT/HCPCS: 99213

== ENCOUNTER → 2023-12-06 09:53 | Outpatient (BNVA) | payer OTHER, SELFPAY | PROVIDERS: PCP Internal Medicine Geriatric Medicine; Visit Provider Nurse Practitioner Family | DX: K59.04 Chronic idiopathic constipation (principal); K57.32 Diverticulitis of large intestine without perforation or abscess without bleeding; Z90.49 Acquired absence of other specified parts of digestive tract | CPT/HCPCS: 99212 ==

== ENCOUNTER 2024-01-24 10:59 | Outpatient (AMB) | payer OTHER, SELFPAY ==
--- NOTE | 2024-01-24 11:04 | A.OFFVIS_ITS ---
Intake Vital Signs 01/24/24 11:05 Height 5 ft 1 in Weight 141 lb BMI 26.6 BP 143/82 H Blood Pressure Location Rt brachial Position Sitting Pulse 94 Intake Visit Reasons: hard lump, wound check, Hx sigmoid resection Intake Note: Patient here c/o: hard lump on abd. Patient hx of sigmoid resection on 08-11-23. Gas Meter Checker Required: Yes Accompanied by: Self / Same As Patient Allergies ceftriaxone Allergy (Severe, Verified 01/24/24 11:04) Anaphylaxis Iodinated Contrast Media [IV Contrast Dye] Allergy (Severe, Verified 01/24/24 11:04) Anaphylaxis magnesium hydroxide [From Milk of Magnesia] Allergy (Intermediate, Verified 01/24/24 11:04) Rash HPI HPI Comments History of Present Illness Details Patient has nonspecific epigastric complaints. She has been seen by GI for this in the past. She has taken a variety of stool softeners. She also has some left mid abdomen abdominal wall discomfort. Patient is well known to me. Status post sigmoid resection in July of 2023. Prior CT demonstrated no evidence of cholelithiasis. [facility] Medical History Hemorrhoids with complication Endometrial hyperplasia Heartburn GERD (gastroesophageal reflux disease) Skin lesion of back Kidney stone Vitamin D deficiency Hypothyroidism Surgical History Hx of unilateral oophorectomy History of surgery Tubal ligation status Hx of colonoscopy Hx of esophagogastroduodenoscopy Family History Father Hypertension Respiratory failure Mother Pancreatic cancer Social History Household Members: Spouse Housing: Apartment Are you a primary career agent to a significant other at home: No Do you presently have visiting nurse or other home services: No Alcohol intake: never Patient Tobacco Use Status: Never used Tobacco Second Hand Smoke Exposure: No service: No Current occupational status: employed Current occupation: [employer] program Sexual orientation: Straight/Heterosexual Gender identity: Female Female Reproductive History Menstrual Age of Menarche: 16 Physical Exam Vital Signs: Last Vital Signs Pulse 94 01/24/24 11:05 BP 143/82 H 01/24/24 11:05 BMI result Body Mass Index 26.6 GI Other: Patient was examined both supine and standing with Valsalva. Lower midline wound well healed. No evidence of any hernia. No other abdominal hernias or masses or skin changes demonstrated. Assessment & Plan Assessment & Plan (1) Dyspepsia: Code(s): R10.13 - Epigastric pain (2) H/O resection of large bowel: Code(s): Z90.49 - Acquired absence of other specified parts of digestive tract Plan At present, there are no acute surgical issues. Patient has been seen by GI in the past and perhaps she should contact them regarding her dyspeptic symptoms. Arrangements were made for this. She will otherwise follow-up p.r.n.. All questions answered Coding Level of Care Code Est Pt Level 4 (49944) Diagnoses Dyspepsia R10.13 H/O resection of large bowel Z90.49
[2024-01-24 11:05] VITALS: BP 143/82; PULSE 94; BMI 26.6
== END 2024-01-24 11:12 | disposition home or self-care (01) ==
PROVIDERS: PCP Internal Medicine Geriatric Medicine; Visit Provider Surgery
DX: R10.13 Epigastric pain (principal); Z90.49 Acquired absence of other specified parts of digestive tract
CPT/HCPCS: 99214

== ENCOUNTER → 2024-01-24 10:59 | Outpatient (BNVA) | payer OTHER, SELFPAY | PROVIDERS: PCP Internal Medicine Geriatric Medicine; Visit Provider Surgery | DX: R10.13 Epigastric pain (principal); Z90.49 Acquired absence of other specified parts of digestive tract | CPT/HCPCS: 99212 ==

== ENCOUNTER 2024-03-06 09:56 | Outpatient (AMB) | payer OTHER, SELFPAY ==
[2024-03-06 10:03] VITALS: BP 140/83; PULSE 72; BMI 26.7
--- NOTE | 2024-03-06 10:03 | A.OFFVIS_ITS ---
Vital Signs 03/06/24 10:03 Height 5 ft 1 in Weight 141 lb 1.533 oz BMI 26.7 BP 140/83 H Blood Pressure Location Lt brachial Position Sitting Pulse 72 Intake Visit Reasons: 3 month follow up Constipation Intake Note: Crecencia returns in 3 months follow up of constipation. CC: Patient states that she went to her PCP with c/o acid reflux and he started her on Omeprazole, but she takes it only sometimes. She reports that she feels that her abdomen has been inflamed since after her bowel surgery. Patient c/o constipation and hemorrhoids. Hog Driver Required: Yes Accompanied by: Self / Same As Patient Allergies ceftriaxone Allergy (Severe, Verified 03/06/24 10:09) Anaphylaxis Iodinated Contrast Media [IV Contrast Dye] Allergy (Severe, Verified 03/06/24 10:09) Anaphylaxis magnesium hydroxide [From Milk of Magnesia] Allergy (Intermediate, Verified 03/06/24 10:09) Rash HPI HPI 3 month follow up Constipation: Details: LAST VISIT: Chronic idiopathic constipation Diverticulitis S/P colon resection Diverticulitis large intestine Plan History of diverticulitis. Stressed the importance of drinking plenty fluids and increase activity to promote better bowel motility. High-fiber diet discussed with patient as well. Patient will continue taking Dulcolax tablets and to Colace to help her move her bowels better. Script for Anusol suppository and Proctosol cream sent to pharmacy. Patient will follow-up in the office in 3 months, sooner on as needed basis. Patient is agreeable to plan of care and verbalizes understanding of instructions. She was given the opportunity to ask questions and all questions answered. ? Thank you for allowing me to participate in her care Medications New hydrocortisone acetate (Anucort-HC) 25 mg AL BID 24 ea 2RF hydrocortisone 2.5% (Proctosol HC) 1 appl AL BID-QID PRN 30 grams 2RF hemorrhoids K64.9 Changed Changed From docusate sodium 100 mg PO BEDTIME 90 caps 3RF K59.00 Changed To docusate sodium 200 mg (2 x 100 mg) PO BEDTIME 180 caps 3RF K59.00 Refilled docusate sodium 100 mg PO BEDTIME 90 caps 3RF K59.00 bisacodyl 10 mg (2 x 5 mg) PO DAILY 60 tabs 2RF Discontinued phenazopyridine (Pyridium) Discontinued Reason: Patient Completed Course 200 mg PO TID 3 days PRN 9 tabs 0RF Burning with urination TODAY'S VISIT: Patient is here today for follow-up. Patient reports that since last time I have seen her she has been doing better, however she is unable to have a bowel movement unless she takes Dulcolax and Colace. Patient reports that she feels like she moves her bowels, however she feels like she is getting more bloated, feels like her abdomen is more distended than usual. This has happened in the past few weeks. Patient admits to be caring heavy boxes at [place]. 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 Patient is doing lot of bending and moving around. Patient reports that her bowels are normal in size, however when she is constipated when she does not take her Dulcolax she will have short and thin stool. Patient denies melena, hematochezia, unintentional weight loss or ribbon like stools. Patient reports to have good appetite. Denies any nausea or vomiting. Denies any chills. Patient reports tenderness with palpation of lower abdominal area and around umbilical region. Patient reports that her acid reflux symptoms have returned and she started using omeprazole on as needed basis. Patient is status post colon resection and was last seen by Dr. rAaya on January 23. [facility] Medical History Hemorrhoids with complication Endometrial hyperplasia Heartburn GERD (gastroesophageal reflux disease) Skin lesion of back Kidney stone Vitamin D deficiency Hypothyroidism Surgical History Hx of unilateral oophorectomy History of surgery Tubal ligation status Hx of colonoscopy Hx of esophagogastroduodenoscopy Family History Father Hypertension Respiratory failure Mother Pancreatic cancer Social History Household Members: Spouse Housing: Apartment Are you a primary healthcare administrative assistant to a significant other at home: No Do you presently have visiting nurse or other home services: No Alcohol intake: never Patient Tobacco Use Status: Never used Tobacco Second Hand Smoke Exposure: No service: No Current occupational status: employed Current occupation: [employer] Sexual orientation: Straight/Heterosexual Gender identity: Female Female Reproductive History Menstrual Age of Menarche: 16 Review of Systems Const Denies weight gain and Denies weight loss ENT Reports no additional complaints, Denies dysphagia and Denies odynophagia Card Reports no additional complaints Resp Reports no additional complaints GI Reports abdominal pain, Denies belching, Denies melena, Reports bloating, Denies change in bowel habits, Denies dysphagia, Denies excessive flatus, Denies dyspepsia, Reports heartburn (Occasional), Denies diarrhea, Denies loose stools, Denies nausea, Denies odynophagia and Denies vomiting Reports no additional complaints Musc Reports no additional complaints Neuro Reports no additional complaints Psych Reports no additional complaints Endo Reports no additional complaints Physical Exam Vital Signs: Last Vital Signs Pulse 72 03/06/24 10:03 BP 140/83 H 03/06/24 10:03 BMI result Body Mass Index 26.7 Const General: healthy appearing, no acute distress and well developed Nutritional Appearance: well nourished Orientation/consciousness: patient oriented x3 Resp Effort & Inspection: normal respiratory effort, able to speak in complete sentences, no tracheal deviation and symmetric chest movement Auscultation: clear to auscultation bilaterally Cardio Rate: regular rate GI Inspection: Yes distended Palpation (GI): Soft to palpation, not firm, Tenderness to palpation present (GI), Guarding due to palpation present (GI) and No hepatosplenomegaly present Auscultation: normal bowel sounds General: Yes no CVA tenderness Back/Spine/Pelvis Back: no CVA tenderness Skin General skin exam: elasticity normal, turgor normal and dry skin Neuro General: patient oriented x3 Psych Appearance: grossly normal Mental Status: mental status grossly normal Assessment & Plan Assessment & Plan (1) H/O resection of large bowel: Code(s): Z90.49 - Acquired absence of other specified parts of digestive tract Category: Medical (2) Dyspepsia: Code(s): R10.13 - Epigastric pain Category: Surgical (3) Diverticulitis: Code(s): K57.92 - Diverticulitis of intestine, part unspecified, without perforation or abscess without bleeding Category: Medical (4) Chronic idiopathic constipation: Code(s): K59.04 - Chronic idiopathic constipation Category: Medical (5) S/P colon resection: Code(s): Z90.49 - Acquired absence of other specified parts of digestive tract Category: Medical (6) Diverticulitis large intestine: Code(s): K57.32 - Diverticulitis of large intestine without perforation or abscess without bleeding Category: Surgical Qualifiers: Diverticulitis bleeding: without bleeding Diverticulitis complication: without perforation or abscess Qualified Code(s): K57.32 - Diverticulitis of large intestine without perforation or abscess without bleeding Plan Referral to surgeon. Patient was assessed by Dr. Araya in the room. Possible recurrence of periumbilical versus abdominal wall hernia. Patient is very bloated, tenderness on palpation. Patient will be sent for CT scan. May do rectal barium to identified stricture or adhesion of her colon. Patient will start taking MiraLax in addition to help her move her bowels better. I will see her in 3 months, sooner on as needed basis. Patient is agreeable to this plan and verbalizes understanding of instructions. She was given the opportunity to ask questions and all questions answered. Thank you for allowing me to participate in her care Orders: Orders CT abdomen pelvis w IV con Today K43.9 - Ventral hernia without obstruction or gangrene, R10.9 - Unspecified abdominal pain, Z90.49 - Acquired absence of other specified parts of digestive tract Medications: New polyethylene glycol 3350 (Miralax) 17 grams PO DAILY 510 grams 2RF Coding Level of Care Code Est Pt Level 4 (42332) Diagnoses H/O resection of large bowel Z90.49 Dyspepsia R10.13 Diverticulitis K57.92 Chronic idiopathic constipation K59.04 S/P colon resection Z90.49 Diverticulitis of large intestine without perforation or abscess without bleeding K57.32 Diverticulitis bleeding: without bleeding Diverticulitis complication: without perforation or abscess Time Spent (min) 40 Comment 25 minutes spent with patient and additional 15 minutes spent reviewing her records
== END 2024-03-06 16:00 ==
PROVIDERS: PCP Internal Medicine Geriatric Medicine; Visit Provider Nurse Practitioner Family
DX: Z90.49 Acquired absence of other specified parts of digestive tract (principal); R10.13 Epigastric pain; K57.92 Diverticulitis of intestine, part unspecified, without perforation or abscess without bleeding; K59.04 Chronic idiopathic constipation; K57.32 Diverticulitis of large intestine without perforation or abscess without bleeding
CPT/HCPCS: 99214

== ENCOUNTER → 2024-03-06 09:56 | Outpatient (BNVA) | payer OTHER, MEDICAID, SELFPAY | PROVIDERS: PCP Internal Medicine Geriatric Medicine; Visit Provider Nurse Practitioner Family | DX: K57.32 Diverticulitis of large intestine without perforation or abscess without bleeding (principal); K59.04 Chronic idiopathic constipation; R10.13 Epigastric pain; Z90.49 Acquired absence of other specified parts of digestive tract | CPT/HCPCS: 99212 ==

== ENCOUNTER 2024-03-14 10:24 | Outpatient (REF) | payer OTHER, SELFPAY ==
--- NOTE | ~2024-03-14 | US_ITS ---
EXAMINATION: US RETROPERITONEAL LIMITED (RENAL ONLY) CLINICAL INFORMATION: Calculus of kidney. COMPARISON: CT abdomen and pelvis 06/22/2023. Renal ultrasound 04/01/2023 TECHNIQUE: Real-time imaging of the kidneys. FINDINGS: RIGHT KIDNEY: 11.8 x 4.2 x 4.5 cm (SAG x AP x TRV). The kidney is normal in size, contour, and echogenicity. Renal cortical thickness is normal. No renal calculi or focal parenchymal lesions. Mild right hydronephrosis similar to prior. LEFT KIDNEY: 9.7 x 5.0 x 5.0 cm (SAG x AP x TRV). The kidney is normal in size, contour, and echogenicity. Renal cortical thickness is normal. No calculi or focal parenchymal lesions. No hydronephrosis. BLADDER: Bilateral ureteral jets are demonstrated. US/US renal BI IMPRESSION: Mild right hydronephrosis similar to prior. No nephrolithiasis appreciated.
== END 2024-03-14 10:25 | disposition home or self-care (01) ==
LOC: HO.US 10:24
PROVIDERS: PCP Internal Medicine Geriatric Medicine; Visit Provider Nurse Practitioner Family
DX: N20.0 Calculus of kidney (principal); N13.30 Unspecified hydronephrosis
CPT/HCPCS: 76775

== ENCOUNTER 2024-03-19 09:34 | Outpatient (REF) | payer OTHER, SELFPAY ==
--- NOTE | ~2024-03-19 | CT_ITS ---
EXAMINATION: CT ABDOMEN AND PELVIS WITHOUT CONTRAST CLINICAL INFORMATION: Abdominal pain. Rule out stricture. COMPARISON: Previous CT of the abdomen and pelvis June 2023 TECHNIQUE: Multidetector volumetric imaging was performed from the superior aspect of the liver through the pubic symphysis. Sagittal and coronal reformatted images were obtained on the technologist's workstation. This CT examination was performed using dose optimization techniques as appropriate, variously including the following: *Automated exposure control *Adjustment of mA and/or kV according to patient size (this includes techniques or standardized protocols for targeted exams where dose is matched to indication/reason for exam; i.e. extremities or head) *Use of iterative reconstruction technique DLP: 338 mGy-cm FINDINGS: LUNG BASES: The visualized lung bases are unremarkable. LIVER, GALLBLADDER, AND BILIARY TREE: Fatty liver. No focal hepatic lesion or biliary ductal dilatation is present. The gallbladder is unremarkable with no evidence of radiopaque gallstones, gallbladder wall thickening, or obvious pericholecystic inflammatory changes. PANCREAS: Unremarkable. SPLEEN: Unremarkable. ADRENAL GLANDS: Unremarkable. KIDNEYS AND URETERS: The kidneys are normal in size, shape, and attenuation. Mild right hydronephrosis. The right ureter does not appear dilated and this may represent a right UPJ obstruction. No left hydronephrosis. No stone. BLADDER: Unremarkable. GASTROINTESTINAL TRACT: Rectal tube in place. Rectal contrast opacifies the colon to the cecum. Surgical anastomosis in the distal sigmoid colon. Diverticulosis. No evidence of diverticulitis. No evidence of stricture. There is oral contrast in the stomach and small bowel. No bowel dilatation or focal narrowing to suggest stricture seen. Appendix not definitely identified. No inflammatory changes in the right lower quadrant. No ascites. ABDOMINAL WALL: Diastases of the rectus muscles. Low ventral hernia containing small bowel. No evidence of obstruction. LYMPH NODES: Normal. VASCULAR: Unremarkable. PELVIC VISCERA: Unremarkable. OSSEOUS STRUCTURES: Mild degenerative changes of the lower lumbar spine and curvature to the right. CT/CT abdomen pelvis wo IV con IMPRESSION: Rectal contrast opacifies the entire colon. Surgical staple line in the distal sigmoid colon. No evidence of stricture. Diverticulosis. No evidence of diverticulitis. Diastases of the rectus muscles and low ventral hernia containing small bowel. No evidence of obstruction. Fatty liver. Fleischner guidelines were followed.
[2024-03-19] MEDS: Barium Sulfate Oral (Berry) 450 ML ORAL.SUSP 900 ML PO (12:14)
[2024-03-19] MEDS: Diatrizoate Meglumine, Sodium 30 ML SOLUTION PO (12:15)
== END 2024-03-19 09:35 | disposition home or self-care (01) ==
LOC: HO.CT 09:34
PROVIDERS: PCP Internal Medicine Geriatric Medicine; Visit Provider Nurse Practitioner Family
DX: R10.9 Unspecified abdominal pain (principal); K43.9 Ventral hernia without obstruction or gangrene; Z90.49 Acquired absence of other specified parts of digestive tract
CPT/HCPCS: 74176

== ENCOUNTER 2024-04-05 10:41 | Outpatient (REF) | payer OTHER, SELFPAY ==
[2024-04-05 11:59] LABS: Blood Urea Nitrogen 12 mg/dL (9-16); Estimated Glomerular Filt Rate > 60
== END 2024-04-05 10:42 | disposition home or self-care (01) ==
LOC: HO.LAB 10:41
PROVIDERS: PCP Internal Medicine Geriatric Medicine; Visit Provider Nurse Practitioner Family
DX: N20.0 Calculus of kidney (principal); N13.30 Unspecified hydronephrosis
CPT/HCPCS: 36415; 82565; 84520

== ENCOUNTER 2024-04-06 09:19 | Outpatient (AMB) | payer OTHER, SELFPAY ==
--- NOTE | 2024-04-06 09:20 | A.OFFVIS_ITS ---
Intake Visit Reasons: 1y/US Intake Note: Patient is present for follow up ultrasound and lab results Urology Medications: none Blood Thinner: none Project Intern Required: Yes Project Intern Name: MANJIT SENCARMELA Accompanied by: Self / Same As Patient Allergies ceftriaxone Allergy (Severe, Verified 04/06/24 09:59) Anaphylaxis Iodinated Contrast Media [IV Contrast Dye] Allergy (Severe, Verified 04/06/24 09:59) Anaphylaxis magnesium hydroxide [From Milk of Magnesia] Allergy (Intermediate, Verified 04/06/24 09:59) Rash Medication List - Last Reconciled 04/06/24 by DIMPLE Contreras-SIDDHARTHA bisacodyl 10 mg (2 x 5 mg) PO DAILY docusate sodium 200 mg (2 x 100 mg) PO BEDTIME hydrocortisone 2.5% (Proctosol HC) 1 appl UT BID-QID PRN hydrocortisone acetate (Anucort-HC) 25 mg UT BID levothyroxine 1 tab PO DAILY lisinopril 10 mg PO DAILY polyethylene glycol 3350 (Miralax) 17 grams PO DAILY terconazole 0.8% 1 appful vaginal BEDTIME 3 days HPI Comments Details: Maryann is a pleasant 53-year-old Telugu-speaking female of Dr. Liao who was accompanied by her daughter at today's office visit. She has a past medical history of hemorrhoids with complication, endometrial hyperplasia, GERD, nephrolithiasis, hypothyroidism, and vitamin-D deficiency. She presents to the office today for a follow-up. Recent renal imaging results reviewed with the patient today. Bilateral kidneys with no lesions or renal calculi. There is mild right hydronephrosis similar to prior study. Bilateral ureteral jets are demonstrated. Patient with a longstanding history of mild right-sided hydronephrosis. In review of patient's chart it appears dating back to 2020 mild right hydro has been present. Most recent CT abdomen that was ordered by GI was also reviewed with the patient today. The kidneys are normal in size, shape, and attenuation. Mild right hydronephrosis. The right ureter does not appear dilated and this may represent a right UPJ obstruction. No left hydronephrosis. No nephrolithiasis. The bladder is unremarkable. BUN: 07/06 10, 07/06 11, 08/06 10, 04/06 12 CREATININE: 09/05 0.95, 07/06 0.84, 08/06 0.77, 04/06 0.65 She discusses her longstanding history of nephrolithiasis and previous surgical intervention and Elzbieta for nephrolithiasis. She reports having had multiple interventions for nephrolithiasis as well as her bowels. She has a longstanding history of recurrent urinary tract infections. In office urinalysis results reviewed with the patient today. She discusses experiencing lower urinary tract symptoms when having issues with her bowels. Discussed correlation of bowel issues with lower urinary tract symptoms. She currently denies any to UTI like symptoms. She denies urinary urgency, urinary frequency, incontinence, nocturia, hematuria, dysuria, foul smelling urine, changes to urinary stream, flank pain, fever, and or chills. She is happy with her current voiding parameters. Discussed at length potential causes of hydronephrosis. Discussed surveillance monitoring verses further workup with nuclear renal scan. Risks and benefits of these interventions were discussed. She discusses following up with Nephrology in also discusses at times her noncompliance with taking medications as prescribed. She otherwise offers no other issues or concerns at this time. Nephrolithiasis Longstanding Prior left [facility] 2019 On prior imaging was found to have right-sided extrarenal pelvis versus UPJ obstruction Lasix renogram 2019 showed good emptying Imaging - 02/01 CT - no stones during evaluation for abdominal discomfort -01/06 CT- Mild right hydronephrosis with relative decompression of the ureter at the ureterovesicular junction which may reflect a degree of underlying UPJ stenosis; ongoing/ stable surveillance imaging -04/05- renal ultrasound Mild right hydroureteronephrosis similar to prior. No nephrolithiasis appreciated. [facility] Medical History Hemorrhoids with complication Endometrial hyperplasia Heartburn GERD (gastroesophageal reflux disease) Skin lesion of back Kidney stone Vitamin D deficiency Hypothyroidism Surgical History Hx of unilateral oophorectomy History of surgery Tubal ligation status Hx of colonoscopy Hx of esophagogastroduodenoscopy Family History Father Hypertension Respiratory failure Mother Pancreatic cancer Social History Household Members: Spouse Housing: Apartment Are you a primary menagerie caretaker to a significant other at home: No Do you presently have visiting nurse or other home services: No Alcohol intake: never Patient Tobacco Use Status: Never used Tobacco Second Hand Smoke Exposure: No service: No Current occupational status: employed Current occupation: [employer] program Sexual orientation: Straight/Heterosexual Gender identity: Female Female Reproductive History Menstrual Age of Menarche: 16 Review of Systems Const Reports no additional complaints Eyes Reports no additional complaints ENT Reports no additional complaints Card Reports no additional complaints Resp Reports no additional complaints GI Reports as per HPI Reports as per HPI Musc Reports no additional complaints Neuro Reports no additional complaints Psych Reports no additional complaints Endo Reports as per HPI Danis/Lymph Reports no additional complaints Aller/Immun Reports no additional complaints Physical Exam Const General: cooperative, healthy appearing, comfortable, no acute distress, well developed, alert and awake Nutritional Appearance: average body habitus Orientation/consciousness: patient oriented x3 Limitations: no limitations HEENT Head: Yes normal to inspection, Yes normocephalic and Yes atraumatic Ears: hearing grossly normal bilaterally Eyes General: appearance normal, both eyes and all related structures Neck Neck: Yes normal visual inspection and Yes trachea midline Chest Chest palpation & inspection: normal inspection of the chest Resp Effort & Inspection: normal respiratory effort and able to speak in complete sentences Cardio Rate: regular rate GI Inspection: Yes normal to inspection General: Yes no CVA tenderness Back/Spine/Pelvis Back: no CVA tenderness Skin General skin exam: no rashes or lesions noted Neuro General: patient oriented x3 Extrem General: Yes normal to inspection Psych Appearance: grossly normal and well kempt Mental Status: mental status grossly normal Speech and movement: Normal speech and movement present and Clear speech present Affect: normal affect Attitude: cooperative Thought process: Normal thought process present Thought content: Normal thought content present Insight: Fair insight present (Psych) Judgement: Fair judgement present (Psych) Results AMB Urinalysis, Automated UA Leukoctes 0 Mercy/uL Last Edit by Maxwell Torres on 04/06/24 09:37 UA Nitrite Negative Last Edit by Maxwell Torres on 04/06/24 09:37 UA Urobilinogen 0.2 mg/dL Last Edit by Maxwell Torres on 04/06/24 09:37 UA Protein 30 mg/dL Last Edit by Maxwell Torres on 04/06/24 09:37 UA pH 6.0 Last Edit by Maxwell Torres on 04/06/24 09:37 UA Blood 0 Americo/uL Last Edit by Maxwell Torres on 04/06/24 09:37 UA Specific [place] 1.020 Last Edit by Maxwell Torres on 04/06/24 09:37 UA Ketone Negative Last Edit by Maxwell Torres on 04/06/24 09:37 UA Bilirubin 0 mg/dL Last Edit by Maxwell Torres on 04/06/24 09:37 UA Glucose 0 mg/dL Last Edit by Maxwell Torres on 04/06/24 09:37 Results Reviewed Results Reviewed: Laboratory Last Values Urine pH (Auto) 6.0 04/06/24 09:25 Specific [place] (Auto) 1.020 04/06/24 09:25 Urine Protein (Auto) 30 mg/dL 04/06/24 09:25 Glucose (UA)(Auto) 0 mg/dL 04/06/24 09:25 Urine Ketones (Auto) Negative 04/06/24 09:25 Urine Blood (Auto) 0 Americo/uL 04/06/24 09:25 Urine Nitrite (Auto) Negative 04/06/24 09:25 Urine Bilirubin (Auto) 0 mg/dL 04/06/24 09:25 Urine Urobilinogen (Auto) 0.2 mg/dL 04/06/24 09:25 Leukocyte Esterase (Auto) 0 [facility]cy/uL 04/06/24 09:25 Date of Service: 03/19/24 EXAMINATION: CT ABDOMEN AND PELVIS WITHOUT CONTRAST FINDINGS: LUNG BASES: The visualized lung bases are unremarkable. LIVER, GALLBLADDER, AND BILIARY TREE: Fatty liver. No focal hepatic lesion or biliary ductal dilatation is present. The gallbladder is unremarkable with no evidence of radiopaque gallstones, gallbladder wall thickening, or obvious pericholecystic inflammatory changes. PANCREAS: Unremarkable. SPLEEN: Unremarkable. ADRENAL GLANDS: Unremarkable. KIDNEYS AND URETERS: The kidneys are normal in size, shape, and attenuation. Mild right hydronephrosis. The right ureter does not appear dilated and this may represent a right UPJ obstruction. No left hydronephrosis. No stone. BLADDER: Unremarkable. GASTROINTESTINAL TRACT: Rectal tube in place. Rectal contrast opacifies the colon to the cecum. Surgical anastomosis in the distal sigmoid colon. Diverticulosis. No evidence of diverticulitis. No evidence of stricture. There is oral contrast in the stomach and small bowel. No bowel dilatation or focal narrowing to suggest stricture seen. Appendix not definitely identified. No inflammatory changes in the right lower quadrant. No ascites. ABDOMINAL WALL: Diastases of the rectus muscles. Low ventral hernia containing small bowel. No evidence of obstruction. LYMPH NODES: Normal. VASCULAR: Unremarkable. PELVIC VISCERA: Unremarkable. OSSEOUS STRUCTURES: Mild degenerative changes of the lower lumbar spine and curvature to the right. IMPRESSION: Rectal contrast opacifies the entire colon. Surgical staple line in the distal sigmoid colon. No evidence of stricture. Diverticulosis. No evidence of diverticulitis. Diastases of the rectus muscles and low ventral hernia containing small bowel. No evidence of obstruction. Fatty liver. Date of Service: 03/14/24 EXAMINATION: US RETROPERITONEAL LIMITED (RENAL ONLY) FINDINGS: RIGHT KIDNEY: 11.8 x 4.2 x 4.5 cm (SAG x AP x TRV). The kidney is normal in size, contour, and echogenicity. Renal cortical thickness is normal. No renal calculi or focal parenchymal lesions. Mild right hydronephrosis similar to prior. LEFT KIDNEY: 9.7 x 5.0 x 5.0 cm (SAG x AP x TRV). The kidney is normal in size, contour, and echogenicity. Renal cortical thickness is normal. No calculi or focal parenchymal lesions. No hydronephrosis. BLADDER: Bilateral ureteral jets are demonstrated. IMPRESSION: Mild right hydronephrosis similar to prior. No nephrolithiasis appreciated. Assessment & Plan Assessment & Plan (1) Hydronephrosis: Code(s): N13.30 - Unspecified hydronephrosis Category: Medical (2) Kidney stone: Code(s): N20.0 - Calculus of kidney Category: Medical Plan In office urinalysis results reviewed with the patient today; as noted above. Recent renal ultrasound results and CT results reviewed with the patient today; as noted above. Patient denies any urological issues or concerns at this time. BUN and creatinine results reviewed and trended with the patient today; as noted above. Discussed further workup of what appears to be longstanding history of hydronephrosis versus surveillance monitoring Will obtain nuclear renal scan for further assessment evaluation Discussed, educated, and instructed on the importance of drinking adequate amount of water daily. Follow-up in 1-3 months with imaging to be completed prior; or sooner with any issues, concerns, and or questions. Orders: Orders NM renal flow w pharm int Today N13.30 - Unspecified hydronephrosis Blood Urea Nitrogen Today N13.30 - Unspecified hydronephrosis Creatinine Today N13.30 - Unspecified hydronephrosis AMB Urinalysis Automated Today Z13.9 - Encounter for screening, unspecified Patient Instructions: The patient had an opportunity to ask questions regarding the treatment plan. All questions were answered. Physical exam, labs, and imaging were discussed and reviewed in detail. As well as risks, benefits, and discussion of treatment choices. No major barriers to understanding were identified. The patient expressed understanding and agreement with the above treatment plan. The patient was made aware they should contact our office by phone for worsening of their current condition, the appearance of new symptoms, or with any questions or concerns. Compliance is encouraged with any medications and follow up testing that is ordered. It is a privilege to be allowed the opportunity to participate in? your urological care.? Again, if you have any questions or concerns If you have any questions or concerns please do not hesitate to contact me. The office is [phone]. This note is constructed using voice recognition software. While every effort has been made to ensure accuracy electro mechanical assembler errors may have been included. Yours sincerely, CHATO Contreras Coding Level of Care Code Est Pt Level 3 (40958) Diagnoses Hydronephrosis N13.30 Kidney stone N20.0
== END 2024-04-06 09:59 | disposition home or self-care (01) ==
PROVIDERS: PCP Internal Medicine Geriatric Medicine; Visit Provider Nurse Practitioner Family
DX: N13.30 Unspecified hydronephrosis (principal); N20.0 Calculus of kidney; Z13.9 Encounter for screening, unspecified
CPT/HCPCS: 99213

== ENCOUNTER → 2024-04-06 09:19 | Outpatient (BNVA) | payer OTHER, SELFPAY | PROVIDERS: PCP Internal Medicine Geriatric Medicine; Visit Provider Nurse Practitioner Family | DX: N13.30 Unspecified hydronephrosis (principal); N20.0 Calculus of kidney | CPT/HCPCS: 81003; 99212 ==

== ENCOUNTER 2024-04-18 09:59 | Outpatient (AMB) | payer OTHER, SELFPAY ==
--- NOTE | 2024-04-18 10:04 | MHC.OFFVIS ---
Vital Signs 04/18/24 10:18 Height 5 ft 1 in Weight 138 lb 14.259 oz BMI 26.2 BP 130/84 Blood Pressure Location Lt brachial Position Sitting Pulse 70 Pulse Source Pulse Oximeter Pulse Oximetry (%) 98 Oxygen Delivery Method Room Air Intake Visit Reasons: 6 week follow up Intake Note: Crecencia presents in office today for a FUV. CC; Pt does have a question regarding a medication which is not rx'd through any GI providers. Pt is concerned about any potential contraindication. Change Release Manager Required: Yes Change Release Manager Name: [id number] Anshul Allergies ceftriaxone Allergy (Severe, Verified 04/18/24 10:11) Anaphylaxis Iodinated Contrast Media [IV Contrast Dye] Allergy (Severe, Verified 04/18/24 10:11) Anaphylaxis magnesium hydroxide [From Milk of Magnesia] Allergy (Intermediate, Verified 04/18/24 10:11) Rash HPI HPI 6 week follow up: Details: LAST VISIT H/O resection of large bowel Dyspepsia Diverticulitis Chronic idiopathic constipation S/P colon resection Diverticulitis large intestine Plan Referral to surgeon. Patient was assessed by Dr. Araya in the room. Possible recurrence of periumbilical versus abdominal wall hernia. Patient is very bloated, tenderness on palpation. Patient will be sent for CT scan. May do rectal barium to identified stricture or adhesion of her colon. Patient will start taking MiraLax in addition to help her move her bowels better. I will see her in 3 months, sooner on as needed basis. Patient is agreeable to this plan and verbalizes understanding of instructions. She was given the opportunity to ask questions and all questions answered. ? Thank you for allowing me to participate in her care Orders Orders CT abdomen pelvis w IV con Today K43.9, R10.9, Z90.49 Medications New polyethylene glycol 3350 (Miralax) 17 grams PO DAILY 510 grams 2RF TODAY'S VISIT Patient is here today for follow-up and to discuss CT scan results. Patient reports that she has been feeling better, less bloating, moving her bowels better. CT scan did not show any acute processes except for diastasis recti containing small bowel without obstruction. Patient reports that she is using senna to help her move her bowels. Occasional left lower quadrant cramping before bowel movement. Patient is drinking senna tea and would like to use that instead of medication. Patient stopped taking Dulcolax tablets. Patient denies any nausea or vomiting. Occasional postprandial abdominal bloating. [facility] Medical History Hemorrhoids with complication Endometrial hyperplasia Heartburn GERD (gastroesophageal reflux disease) Skin lesion of back Kidney stone Vitamin D deficiency Hypothyroidism Surgical History Hx of unilateral oophorectomy History of surgery Tubal ligation status Hx of colonoscopy Hx of esophagogastroduodenoscopy Family History Father Hypertension Respiratory failure Mother Pancreatic cancer Social History Household Members: Spouse Housing: Apartment Are you a primary group care worker to a significant other at home: No Do you presently have visiting nurse or other home services: No Alcohol intake: never Patient Tobacco Use Status: Never used Tobacco Second Hand Smoke Exposure: No service: No Current occupational status: employed Current occupation: [employer] program Sexual orientation: Straight/Heterosexual Gender identity: Female Female Reproductive History Menstrual Age of Menarche: 16 Review of Systems Const Denies weight gain and Denies weight loss ENT Reports no additional complaints, Denies dysphagia and Denies odynophagia Card Reports no additional complaints Resp Reports no additional complaints GI Denies abdominal pain, Denies belching, Denies melena, Denies bloating, Denies change in bowel habits, Denies dysphagia, Denies excessive flatus, Denies dyspepsia, Denies heartburn, Denies diarrhea, Denies loose stools, Denies nausea, Denies odynophagia and Denies vomiting Reports no additional complaints Musc Reports no additional complaints Neuro Reports no additional complaints Psych Reports no additional complaints Endo Reports no additional complaints Physical Exam Vital Signs: Last Vital Signs Pulse 70 04/18/24 10:18 BP 130/84 04/18/24 10:18 Pulse Ox 98 04/18/24 10:18 Oxygen Delivery Method Room Air 04/18/24 10:18 BMI result Body Mass Index 26.2 Const General: healthy appearing, no acute distress and well developed Nutritional Appearance: well nourished Orientation/consciousness: patient oriented x3 Resp Effort & Inspection: normal respiratory effort, able to speak in complete sentences, no tracheal deviation and symmetric chest movement Auscultation: clear to auscultation bilaterally Cardio Rate: regular rate GI Inspection: Yes distended Palpation (GI): Soft to palpation, not firm, nontender, no guarding and No hepatosplenomegaly present Auscultation: normal bowel sounds General: Yes no CVA tenderness Back/Spine/Pelvis Back: no CVA tenderness Skin General skin exam: elasticity normal, turgor normal and dry skin Neuro General: patient oriented x3 Psych Appearance: grossly normal Mental Status: mental status grossly normal Results Reviewed Results Reviewed: CT OF ABDOMEN AND PELVIS FINDINGS: LUNG BASES: The visualized lung bases are unremarkable. LIVER, GALLBLADDER, AND BILIARY TREE: Fatty liver. No focal hepatic lesion or biliary ductal dilatation is present. The gallbladder is unremarkable with no evidence of radiopaque gallstones, gallbladder wall thickening, or obvious pericholecystic inflammatory changes. PANCREAS: Unremarkable. SPLEEN: Unremarkable. ADRENAL GLANDS: Unremarkable. KIDNEYS AND URETERS: The kidneys are normal in size, shape, and attenuation. Mild right hydronephrosis. The right ureter does not appear dilated and this may represent a right UPJ obstruction. No left hydronephrosis. No stone. BLADDER: Unremarkable. GASTROINTESTINAL TRACT: Rectal tube in place. Rectal contrast opacifies the colon to the cecum. Surgical anastomosis in the distal sigmoid colon. Diverticulosis. No evidence of diverticulitis. No evidence of stricture. There is oral contrast in the stomach and small bowel. No bowel dilatation or focal narrowing to suggest stricture seen. Appendix not definitely identified. No inflammatory changes in the right lower quadrant. No ascites. ABDOMINAL WALL: Diastases of the rectus muscles. Low ventral hernia containing small bowel. No evidence of obstruction. LYMPH NODES: Normal. VASCULAR: Unremarkable. PELVIC VISCERA: Unremarkable. OSSEOUS STRUCTURES: Mild degenerative changes of the lower lumbar spine and curvature to the right. CT/CT abdomen pelvis wo IV con IMPRESSION: Rectal contrast opacifies the entire colon. Surgical staple line in the distal sigmoid colon. No evidence of stricture. Diverticulosis. No evidence of diverticulitis. Diastases of the rectus muscles and low ventral hernia containing small bowel. No evidence of obstruction. Fatty liver. Assessment & Plan Assessment & Plan (1) H/O resection of large bowel: Code(s): Z90.49 - Acquired absence of other specified parts of digestive tract Category: Medical (2) Dyspepsia: Code(s): R10.13 - Epigastric pain Category: Surgical (3) Diverticulitis: Code(s): K57.92 - Diverticulitis of intestine, part unspecified, without perforation or abscess without bleeding Category: Medical (4) Chronic idiopathic constipation: Code(s): K59.04 - Chronic idiopathic constipation Category: Medical (5) S/P colon resection: Code(s): Z90.49 - Acquired absence of other specified parts of digestive tract Category: Medical (6) Diverticulitis large intestine: Code(s): K57.32 - Diverticulitis of large intestine without perforation or abscess without bleeding Category: Surgical Qualifiers: Diverticulitis bleeding: without bleeding Diverticulitis complication: without perforation or abscess Qualified Code(s): K57.32 - Diverticulitis of large intestine without perforation or abscess without bleeding (7) Ventral hernia without obstruction or gangrene: Code(s): K43.9 - Ventral hernia without obstruction or gangrene Plan Patient will make appointment with her surgeon regarding ventral hernia. Currently patient is asymptomatic. Ventral hernia in the left lower abdomen without obstruction seen on CT scan. Continue senna and continue stool softeners. Encouraged patient to increase fluid intake and activity to promote better bowel motility. Patient was encouraged to follow FODMAP diet. List of food recommended as well as list of food to avoid given to patient. Changing her diet might help with bloating. I will see patient in 3 months, sooner on as needed basis. She is agreeable to this plan and verbalizes understanding of instructions. She was given the opportunity to ask questions and all questions answered. Thank you for allowing me to participate in her care Coding Level of Care Code Est Pt Level 4 (65449) Diagnoses H/O resection of large bowel Z90.49 Dyspepsia R10.13 Diverticulitis K57.92 Chronic idiopathic constipation K59.04 S/P colon resection Z90.49 Diverticulitis of large intestine without perforation or abscess without bleeding K57.32 Diverticulitis bleeding: without bleeding Diverticulitis complication: without perforation or abscess Ventral hernia without obstruction or gangrene K43.9 Time Spent (min) 40 Comment 25 minutes spent with patient and additional 15 minutes spent reviewing her records
[2024-04-18 10:18] VITALS: BP 130/84; PULSE 70; O2SAT 98; BMI 26.2
== END 2024-04-18 10:54 | disposition home or self-care (01) ==
PROVIDERS: PCP Internal Medicine Geriatric Medicine; Visit Provider Nurse Practitioner Family
DX: K57.32 Diverticulitis of large intestine without perforation or abscess without bleeding (principal); Z90.49 Acquired absence of other specified parts of digestive tract; K59.04 Chronic idiopathic constipation; K43.9 Ventral hernia without obstruction or gangrene
CPT/HCPCS: 99214

== ENCOUNTER → 2024-04-18 09:59 | Outpatient (BNVA) | payer OTHER, MEDICAID, SELFPAY | PROVIDERS: PCP Internal Medicine Geriatric Medicine; Visit Provider Nurse Practitioner Family | DX: K57.92 Diverticulitis of intestine, part unspecified, without perforation or abscess without bleeding (principal); K59.04 Chronic idiopathic constipation; K57.32 Diverticulitis of large intestine without perforation or abscess without bleeding; K43.9 Ventral hernia without obstruction or gangrene; R10.13 Epigastric pain; Z90.49 Acquired absence of other specified parts of digestive tract | CPT/HCPCS: 99212 ==

== ENCOUNTER 2024-04-30 08:49 | Outpatient (AMB) | payer OTHER, MEDICAID, SELFPAY ==
--- NOTE | 2024-04-30 08:55 | MHC.OFFVIS ---
Vital Signs 04/30/24 09:01 Height 5 ft 1 in Weight 139 lb BMI 26.3 BP 139/76 Blood Pressure Location Rt brachial Position Sitting Pulse 73 Intake Visit Reasons: Ventral hernia Intake Note: This patient presents for an assessment for a ventral hernia. Patient c/o; reports some pain,reports bulge. Corporate Events Director Required: Yes Corporate Events Director Language: Telephone Solicitor Name: Wilfredo Information Interpreted: non-clinical & clinical Accompanied by: Self / Same As Patient Allergies ceftriaxone Allergy (Severe, Verified 04/30/24 09:04) Anaphylaxis Iodinated Contrast Media [IV Contrast Dye] Allergy (Severe, Verified 04/30/24 09:04) Anaphylaxis magnesium hydroxide [From Milk of Magnesia] Allergy (Intermediate, Verified 04/30/24 09:04) Rash HPI Comments Details: Patient whom I know from the past and had seen her several weeks ago in the GI clinic with a ventral hernia had a recent CT scan which confirmed the clinical findings of a lower midline symptomatic ventral hernia. It is increasing in size, and, symptomatic. She would like to have repaired. She has no other GI issues or complaints. As noted above, patient was well known to me. Chart was reviewed and patient evaluated [facility] Medical History Hemorrhoids with complication Endometrial hyperplasia Heartburn GERD (gastroesophageal reflux disease) Skin lesion of back Kidney stone Vitamin D deficiency Hypothyroidism Surgical History Hx of unilateral oophorectomy History of surgery Tubal ligation status Hx of colonoscopy Hx of esophagogastroduodenoscopy Family History Father Hypertension Respiratory failure Mother Pancreatic cancer Social History Household Members: Spouse Housing: Apartment Are you a primary spiritual care coordinator to a significant other at home: No Do you presently have visiting nurse or other home services: No Alcohol intake: never Patient Tobacco Use Status: Never used Tobacco Second Hand Smoke Exposure: No service: No Current occupational status: employed Current occupation: [employer] Sexual orientation: Straight/Heterosexual Gender identity: Female Female Reproductive History Menstrual Age of Menarche: 16 Physical Exam Vital Signs: Last Vital Signs Pulse 73 04/30/24 09:01 BP 139/76 04/30/24 09:01 BMI result Body Mass Index 26.3 Chest Other: Chest breath sounds bilaterally, HS 1 in GI Other: Patient was examined both supine and standing with Valsalva. Abdomen minimally corpulent, soft. Lower midline skin incision/scar. AP Proximally 4 cm incisional hernia, reducible. Assessment & Plan Assessment & Plan (1) Ventral hernia: Code(s): K43.9 - Ventral hernia without obstruction or gangrene Category: Surgical Plan Risks, benefits, alternatives of open ventral/incisional hernia repair with mesh were reviewed with the patient included but not limited to bleeding, infection, recurrence, numbness, pain, scarring , bowel injury, and the patient wishes to proceed. All questions answered. Arrangements made for this. Coding Level of Care Code Est Pt Level 5 (79672) Diagnoses Ventral hernia K43.9
[2024-04-30 09:01] VITALS: BP 139/76; PULSE 73; BMI 26.3
== END 2024-04-30 09:03 | disposition home or self-care (01) ==
PROVIDERS: PCP Internal Medicine Geriatric Medicine; Referring Provider Nurse Practitioner Family; Visit Provider Surgery
DX: K43.9 Ventral hernia without obstruction or gangrene (principal)
CPT/HCPCS: 99214

== ENCOUNTER → 2024-04-30 08:49 | Outpatient (BNVA) | payer OTHER, MEDICAID, SELFPAY | PROVIDERS: PCP Internal Medicine Geriatric Medicine; Referring Provider Nurse Practitioner Family; Visit Provider Surgery | DX: K43.9 Ventral hernia without obstruction or gangrene (principal) | CPT/HCPCS: 99212 ==

== ENCOUNTER 2024-05-10 10:19 | Outpatient (REF) | payer OTHER, SELFPAY ==
[2024-05-17 03:14] LABS: HPV 16 RNA NOT DETECTED (NOT DETECTED); HPV mRNA E6/E7 Detected (Not Detected)
== END 2024-05-10 10:20 | disposition home or self-care (01) ==
LOC: HO.LNP 10:19
PROVIDERS: PCP Internal Medicine Geriatric Medicine; Visit Provider Obstetrics & Gynecology
DX: Z01.419 Encounter for gynecological examination (general) (routine) without abnormal findings (principal); N94.9 Unspecified condition associated with female genital organs and menstrual cycle
CPT/HCPCS: 87624; 87625; 88175; 99396

== ENCOUNTER 2024-05-10 10:19 | Outpatient (AMB) | payer OTHER, SELFPAY ==
[2024-05-10 10:30] VITALS: BP 110/66; BMI 26.3
--- NOTE | 2024-05-10 10:30 | A.OFFVIS_ITS ---
Vital Signs 05/10/24 10:30 Height 5 ft 1 in Weight 139 lb BMI 26.3 BP 110/66 Blood Pressure Location Lt brachial Position Sitting Intake Visit Reasons: [employer] annual exam Allergies ceftriaxone Allergy (Severe, Verified 05/10/24 10:31) Anaphylaxis Iodinated Contrast Media [IV Contrast Dye] Allergy (Severe, Verified 05/10/24 10:31) Anaphylaxis magnesium hydroxide [From Milk of Magnesia] Allergy (Intermediate, Verified 05/10/24 10:31) Rash HPI Comments Details: Presenting for annual exam. No complaints. No vaginal bleeding Last Pap/HPV was negative in 01/03 Last Mammogram was BI-RADS 1 in 06/05 Last Colonoscopy was in 08/06, the recommendation was to repeat in 5 years [facility] Medical History Hemorrhoids with complication Endometrial hyperplasia Heartburn GERD (gastroesophageal reflux disease) Skin lesion of back Kidney stone Vitamin D deficiency Hypothyroidism Surgical History Hx of unilateral oophorectomy History of surgery Tubal ligation status Hx of colonoscopy Hx of esophagogastroduodenoscopy Family History Father Hypertension Respiratory failure Mother Pancreatic cancer Social History Household Members: Spouse Housing: Apartment Are you a primary patient care representative to a significant other at home: No Do you presently have visiting nurse or other home services: No Alcohol intake: never Patient Tobacco Use Status: Never used Tobacco Second Hand Smoke Exposure: No service: No Current occupational status: employed Current occupation: [employer] Sexual orientation: Straight/Heterosexual Gender identity: Female Female Reproductive History Menstrual Age of Menarche: 16 Date of last pap smear: 12/24/19 History of abnormal pap smear: No History of STI: No Date of Mammogram: 05/23/23 History of abnormal mammogram: No Review of Systems Const All systems reviewed & are unremarkable except as noted in HPI and below Card Reports as per HPI Resp Reports as per HPI GI Reports as per HPI and Reports no additional complaints Reports as per HPI Physical Exam Vital Signs: BMI result Body Mass Index 26.3 Const General: cooperative, healthy appearing and comfortable Chest Chest palpation & inspection: normal inspection of the chest and normal palpation of entire chest wall Breast/axilla inspection: normal inspection of the breasts and normal inspection of the axillae Breast/axilla palpation: normal palpation of the breasts, normal palpation of the axillae and no axillary lymphadenopathy Resp Effort & Inspection: normal respiratory effort Auscultation: clear to auscultation bilaterally Percussion: percussion normal Cardio Palpation: normal PMI Rate: regular rate Rhythm: regular rhythm Heart sounds: no murmurs and no rubs Peripheral pulses: Peripheral pulses 2+ throughout GI Inspection: Yes normal to inspection Palpation (GI): Soft to palpation, nontender, no guarding, not rigid and No hepatosplenomegaly present Percussion: Yes normal to percussion Auscultation: normal bowel sounds Rectal Exam - Female: deferred General: Yes bladder normal to palpation External Female Exam: No lesion Speculum Exam - Vagina: normal appearance of the vagina, normal palpation, normal vaginal discharge and not erythematous Speculum Exam - Cervix: normal appearance of the cervix and normal palpation Bimanual exam- vagina & uterus: normal bimanual exam, normal palpation, uterine size normal, bladder normal to palpation, consistency normal and normal palpation Bimanual Exam- Adnexa, other: adnexae abnormal (Left adnexa within normal, right adnexal fullness), no masses and no tenderness Assessment & Plan Assessment & Plan (1) Well woman exam: Code(s): Z01.419 - Encounter for gynecological examination (general) (routine) without abnormal findings Category: Medical Plan: Cotesting done. Instructions given the patient to schedule next screening Mammogram in 06/06. Counseled the patient about the recommended dietary allowance of 1000 mg of Calcium & 600 IU of vitamin D. The patient was instructed to perform monthly self-breast exams and to schedule an annual exam in a year; All questions answered and the patient verbalized understanding. Instructed the patient to schedule annual exam in a year (2) Adnexal fullness: Comment: Right side History of simple endometrial hyperplasia in 2019 Code(s): N94.9 - Unspecified condition associated with female genital organs and menstrual cycle Category: Medical Plan: Discussed with the patient the finding on pelvic exam, right adnexal fullness will order pelvic ultrasound. Instructions given the patient to schedule ultrasound follow-up appointment. Orders: Orders US pelvic and transvaginal Today N94.9 - Unspecified condition associated with female genital organs and menstrual cycle Coding Level of Care Code Est Pt Prev Care 40-64y(61545) Diagnoses Well woman exam Z01.419 Adnexal fullness N94.9
== END 2024-05-10 11:23 | disposition home or self-care (01) ==
PROVIDERS: PCP Internal Medicine Geriatric Medicine; Visit Provider Obstetrics & Gynecology
DX: Z01.419 Encounter for gynecological examination (general) (routine) without abnormal findings (principal); N94.9 Unspecified condition associated with female genital organs and menstrual cycle
CPT/HCPCS: 99396

== ENCOUNTER 2024-05-24 10:50 | Outpatient (REF) | payer MEDICAID, SELFPAY ==
--- NOTE | ~2024-05-24 | US_ITS ---
EXAMINATION: US PELVIS CLINICAL INFORMATION: Adnexal fullness. COMPARISON: CT abdomen and pelvis 06/22/2023. TECHNIQUE: Ultrasound of the pelvis is performed using both transabdominal and transvaginal transducers along with Doppler. Transvaginal imaging is performed due to inadequate visualization transabdominally. FINDINGS: Uterus: The uterus is retroflexed and measures 6.4 x 3.9 x 3.9 cm. The double wall endometrial thickness is 5 mm. In the endometrial cavity, there is a polypoid mass present measuring about 4 mm (see rouse image). The uterus is smooth in contour and has normal myometrial echogenicity. A small intramural fundal fibroid seen measuring 0.5 cm. Nabothian cysts and calcifications are seen in the cervix Adnexa: History of left oophorectomy. There is normal color flow to the right adnexa. There is no ovarian torsion. There is no pelvic ascites or fluid collection. Right ovary measures 2.2 x 1.2 x 1.1 cm for a volume of 1.5 mL. US/US pelvic and transvaginal IMPRESSION: 1. Polypoid 4 mm mass in the endometrial cavity. Further evaluation is recommended. 2. Small intramural fundal fibroid. 3. Normal-appearing right ovary. 4. History of left oophorectomy.
== END 2024-05-24 10:51 | disposition home or self-care (01) ==
LOC: HO.US 10:50
PROVIDERS: PCP Internal Medicine Geriatric Medicine; Visit Provider Obstetrics & Gynecology
DX: N94.9 Unspecified condition associated with female genital organs and menstrual cycle (principal)
CPT/HCPCS: 76830; 76856

== ENCOUNTER → 2024-05-25 11:45 | Outpatient (BNV) | payer MEDICAID, SELFPAY | PROVIDERS: PCP Internal Medicine Geriatric Medicine; Visit Provider Radiology Diagnostic Radiology | DX: Z12.31 Encounter for screening mammogram for malignant neoplasm of breast (principal) | CPT/HCPCS: 77063; 77067 ==

== ENCOUNTER 2024-05-25 12:23 | Outpatient (REF) | payer MEDICAID, SELFPAY ==
--- NOTE | ~2024-05-25 | MM_ITS ---
EXAMINATION: MM SCREENING DIGITAL BREAST TOMOSYNTHESIS, BILATERAL CLINICAL INFORMATION: Screening. Asymptomatic. COMPARISON: Mammography: This study is compared with prior exams dating back to 2019. TECHNIQUE: Digital breast tomosynthesis is performed in both the craniocaudal and mediolateral oblique views along with computer-aided detection (CAD). Synthesized 2D images are generated from the tomosynthesis. FINDINGS: There are scattered areas of fibroglandular density (ACR BI-RADS breast composition Category b). There are loosely grouped calcifications approximately 14 mm apart in the upper outer quadrant of the right breast. In close proximity, there is a smaller area of focal asymmetry. Magnification imaging of the calcifications is advised. Additional mammographic and targeted sonographic imaging of the focal asymmetry is advised. In the left breast, there are no significant masses, abnormal calcifications, or other abnormalities. MM/MM tomosynthesis screening BI IMPRESSION: Calcifications and focal asymmetry of the upper outer quadrant of the right breast warrant additional mammographic imaging with magnification, spot compression and targeted sonography. No mammographic signs of malignancy left breast. ASSESSMENT: BI-RADS BI-RADS 0 - Incomplete: Needs additional Imaging. RECOMMENDATION: 1. Additional views of the right breast. 2. Targeted ultrasound of the upper outer quadrant of the right breast is indicated. 3. Radiology department staff will contact the patient for additional imaging. Additional Imaging required This examination should not preclude the clinical evaluation of a suspicious palpable abnormality. This patient's information was entered into a reminder system with a target due date for their next mammogram.
== END 2024-05-25 12:24 | disposition home or self-care (01) ==
LOC: HO.MAMMO 12:23
PROVIDERS: PCP Internal Medicine Geriatric Medicine; Visit Provider Internal Medicine Geriatric Medicine
DX: Z12.31 Encounter for screening mammogram for malignant neoplasm of breast (principal)
CPT/HCPCS: 77063; 77067

== ENCOUNTER 2024-05-25 20:18 | Emergency (ER) | payer MEDICAID, SELFPAY ==
--- NOTE | ~2024-05-25 | XR_ITS ---
EXAMINATION: XR HIP, LEFT CLINICAL INFORMATION: Pain. COMPARISON: None available. TECHNIQUE: AP and frog-leg lateral views of the left hip are submitted, together with a frontal view the pelvis. FINDINGS: Bony alignment and mineralization are normal. There is very mild narrowing of the right acetabular joint space. The left acetabular joint space is well-maintained. There is slight irregularity of the lateral articular surface of the left acetabular roof. The femoral heads are smooth. There is no fracture or dislocation. The sacroiliac joints are symmetric and well-maintained. The pubic symphysis is intact. Multiple pelvic phleboliths are seen. There are degenerative changes of the lumbar spine. 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 No fracture or dislocation is seen.
--- NOTE | 2024-05-25 20:21 | ED.LOWEXIN ---
HPI - Extremity Injury (Lower) General Chief Complaint: General Medical Stated Complaint: L hip pain Time Seen by Provider: 05/25/24 21:29 Source: patient Mode of arrival: ambulatory Limitations: no limitations History of Present Illness ED Provider: Dr. Brenda Marie HPI Narrative: Patient comes to the emergency room complaining of left-sided hip pain for 2 days. Patient states that 2 days ago she woke up with left-sided hip pain. Patient denies any recent falls any trauma or any heavy lifting. Patient states that the pain radiates towards the lower back on the left. Denies shock-like sensations. Denies hematuria or dysuria. Patient denies numbness or tingling or loss of motor function in lower extremities, patient denies urinary/fecal incontinence/ retention Related Data Home Medications ?Medication ?Instructions ?Recorded ?Confirmed lisinopril 10 mg tablet 10 mg PO DAILY 09/14/22 04/30/24 levothyroxine 75 mcg tablet 1 tab PO DAILY 12/23/22 04/30/24 omeprazole 20 mg capsule,delayed 20 mg PO DAILY 04/18/24 04/30/24 release pseudoephedrine HCl 30 mg tablet 30 mg PO BEDTIME 04/18/24 04/30/24 (Sudogest) Previous Rx's ?Medication ?Instructions ?Recorded terconazole 0.8 % vaginal cream 1 appful vaginal BEDTIME 3 days 11/21/23 #20 grams bisacodyl 5 mg tablet,delayed 10 mg (2 x 5 mg) PO DAILY #60 tabs 12/06/23 release docusate sodium 100 mg capsule 200 mg (2 x 100 mg) PO BEDTIME 12/06/23 #180 caps hydrocortisone 2.5 % topical cream 1 appl UT BID-QID PRN hemorrhoids 12/06/23 with perineal applicator #30 grams (Proctosol HC) hydrocortisone acetate 25 mg 25 mg UT BID #24 ea 12/06/23 rectal suppository (Anucort-HC) metronidazole 500 mg tablet 500 mg PO BID 7 days #14 tabs 05/22/24 tramadol 50 mg tablet 50 mg PO BID PRN pain #6 tabs 05/26/24 Allergies Allergy/AdvReac Type Severity Reaction Status Date / Time ceftriaxone Allergy Severe Anaphylaxis Verified 05/25/24 20:25 Iodinated Contrast Media Allergy Severe Anaphylaxis Verified 05/25/24 20:25 [IV Contrast Dye] magnesium hydroxide Allergy Intermediate Rash Verified 05/25/24 20:25 [From Milk of Magnesia] Review of Systems Review of Systems: Constitutional : No Weight loss, No Fever, No Chills, No Night Sweats, No Fatigue, No Malaise ENT/Mouth : No Hearing loss, No Ear Pain, No Nasal Congestion, No Sinus Pain, No Hoarseness, No sore throat, No Rhinorrhea, No Swallowing Difficulty Eyes: No Eye Pain, No Swelling, No Redness, No Foreign Body, No Discharge, No Vision Changes Cardiovascular : No Chest Pain, No SOB, No Dyspnea on Exertion, No Orthopnea, No Edema, No Palpitations Respiratory : No Cough, No Sputum, No Wheezing, No Smoke Exposure, No Dyspnea Gastrointestinal : No Nausea, No Vomiting, No Diarrhea, No Constipation, No abdominal Pain, No Hematochezia, No Melena Genitourinary : no irregular bleeding, No Dysuria, No Urinary Frequency, No Hematuria, No Urinary Incontinence, No Urgency, No Flank Pain, No Urinary Flow Changes, No Hesitancy Musculoskeletal : Complaining of left-sided hip pain radiating towards the left lower back, No Myalgias, No Joint Swelling Skin : No Skin Lesions, No rash Neuro : No Weakness, No Numbness, No Paresthesias, No Loss of Consciousness, No Dizziness, No Headache Psych : No Anxiety/Panic, No Depression, No SI/HI/AH/VH, No Social Issues, Heme/Lymph: No Bruising, No Bleeding,No Lymphadenopathy Endocrine : No Polyuria, No Polydipsia, No Temperature Intolerance PMFSH Past Medical History Medical History Hemorrhoids with complication Endometrial hyperplasia Heartburn GERD (gastroesophageal reflux disease) Skin lesion of back Kidney stone Vitamin D deficiency Hypothyroidism Surgical History Hx of unilateral oophorectomy History of surgery Tubal ligation status Hx of colonoscopy Hx of esophagogastroduodenoscopy Family History Family History Father Hypertension Respiratory failure Mother Pancreatic cancer Social History Social History Household Members: Spouse Housing: Apartment Are you a primary client care representative to a significant other at home: No Do you presently have visiting nurse or other home services: No Alcohol intake: never Patient Tobacco Use Status: Never used Tobacco Second Hand Smoke Exposure: No Advance Directives: No Advance Directives Information Provided: No service: No Current occupational status: employed Current occupation: [employer] Sexual orientation: Straight/Heterosexual Gender identity: Female Physical Exam Vital Signs: Vital Signs: Last Vital Signs Temp 97.5 F 05/25/24 22:00 Pulse 86 05/25/24 22:00 Resp 18 05/25/24 22:00 BP 120/79 05/25/24 22:00 Pulse Ox 99 05/25/24 22:00 O2 Del Method Room Air 05/25/24 22:00 BMI result Body Mass Index 25.4 Const: Other: Appearance: Alert. Oriented X3. No acute distress. Eyes: Pupils equal, round and reactive to light. ENT: Pharynx normal. Neck: Normal inspection. Neck supple. No lymph nodes noted. No crepitus CVS: Normal heart rate and rhythm. Pulses normal. Normal S1 and S2 Respiratory: No respiratory distress. Breath sounds normal. No Wheezing. No rales Abdomen: Soft and nontender. No rigidity. No distention. Back: No cervical/thoracic/lumbar spine tenderness. No pain to palpation over the left hip, patient able to flex and extend without difficulty. Negative straight leg raise test Skin: Skin warm and dry. Normal skin color. Normal skin turgor. Extremities: No lower extremity edema. No Lacerations. No Rash Neuro: Oriented X 3. No motor deficit. No sensory deficit. Moving all extremities. No slurred speech. CN 2 through 12 grossly intact Psych: calm, cooperative, normal affect Course Course Course Narrative: This is an RME performed by Ирина Courtney CNP: Additional HPI, ROS, PE not included below will be deferred to primary provider. Patient is a 54-year-old female who presents to the emergency department for evaluation of atraumatic left hip pain upon awakening 2 days ago. Pain radiates down the leg and across lower back. Denies exacerbation with ambulation of movement of the hip joint. Denies symptoms. Has been unrelieved with OTC analgesics. Hx of degenerative changes of the lumbar spine as seen on prior CT scans of the abdomen and pelvis. Medications Administered Discontinued Medications Generic Name Dose Route Start Last Admin Trade Name Freq PRN Reason Stop Dose Admin Oxycodone HCl 5 mg 05/25/24 21:43 05/25/24 22:35 Oxycodone Hcl Immed Release 5 Mg Tablet PO 05/25/24 21:44 5 mg ONCE ONE Administration Medical Decision Making Medical Decision Making [facility] Narrative: -patient complaining of atraumatic left-sided hip pain. -my interpretation of x-rays of the hip: Normal alignment, no obvious abnormality. -patient was given 1 dose of p.o. oxycodone. Patient declined IM treatment. -radiology report, negative for acute findings. -urinalysis negative for UTI Differential Diagnosis Differential Diagnoses: The differential diagnosis associated with the presentation includes (Hip contusion, musculoskeletal pain, fracture, dislocation) Lab Data [facility] Lab Attestation statement: I reviewed the patient's lab results. Labs: Lab Results 05/25/24 Range/Units 22:04 Urine Color Yellow Urine Appearance Clear Urine pH 6.0 (5.0-9.0) Ur Specific [place] <= 1.005 (1.005-1.025) Urine Protein 30 (1+) H (Neg-Trace) mg/dL Urine Glucose (UA) Negative (Negative) mg/dL Urine Ketones Negative (Negative) mg/dL Urine Blood Negative (Negative) Urine Nitrite Negative (Negative) Ur Leukocyte Esterase Trace H (Negative) Urine RBC 0-2 (0-2) /HPF Urine WBC 0-5 (0-5) /HPF Ur Squamous Epith Cells 0-2 (0-2) /HPF Urine Bacteria None Seen (None Seen) Hyaline Casts 0-2 (0-2) /LPF Independent Interpretation I performed an independent interpretation of an: Plain X-Ray Radiology Impression Discussion of test interpretation with radiology: I have reviewed the radiologist's reading. Radiologist Impression: Bony alignment and mineralization are normal. There is very mild narrowing of the right acetabular joint space. The left acetabular joint space is well-maintained. There is slight irregularity of the lateral articular surface of the left acetabular roof. The femoral heads are smooth. There is no fracture or dislocation. The sacroiliac joints are symmetric and well-maintained. The pubic symphysis is intact. Multiple pelvic phleboliths are seen. There are degenerative changes of the lumbar spine. 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 No fracture or dislocation is seen. Discharge Plan Discharge Clinical Impression: Acute hip pain Patient Disposition: Home, Self-Care Instructions: Hip Pain (ED) Additional Instructions: Please follow-up with your primary care physician tomorrow. If you have any worsening or new symptoms, please return to the emergency room or call 911 Prescriptions: New tramadol 50 mg tablet 50 mg PO BID PRN (Reason: pain) Qty: 6 0RF No Action metronidazole 500 mg tablet 500 mg PO BID 7 Days Qty: 14 0RF levothyroxine 75 mcg tablet 1 tab PO DAILY lisinopril 10 mg tablet 10 mg PO DAILY bisacodyl 5 mg tablet,delayed release (DR/EC) 10 mg PO DAILY Qty: 60 2RF hydrocortisone [Proctosol HC] 2.5 % cream with perineal applicator 1 appl UT BID-QID PRN (Reason: hemorrhoids) Qty: 30 2RF hydrocortisone acetate [Anucort-HC] 25 mg suppository 25 mg UT BID Qty: 24 2RF docusate sodium 100 mg capsule 200 mg PO BEDTIME Qty: 180 3RF terconazole 0.8 % cream 1 appful vaginal BEDTIME 3 Days Qty: 20 0RF omeprazole 20 mg capsule,delayed release(DR/EC) 20 mg PO DAILY pseudoephedrine HCl [Sudogest] 30 mg tablet 30 mg PO BEDTIME Print Language: Slovenian
[2024-05-25 20:22] VITALS: BP 139/83; PULSE 98; RESP 16; TEMP 36.8; O2SAT 98; BMI 25.4
[2024-05-25 22:00] VITALS: BP 120/79; PULSE 86; RESP 18; TEMP 36.4; O2SAT 99
[2024-05-25 22:10] LABS: Appearance Urine Clear; Color Urine Yellow; Glucose Urine UA Negative (Negative); Leukocyte Esterase Urine Trace (Negative); Nitrite Urine Negative (Negative); Specific Gravity - Urine <= 1.005 (1.005-1.025); UMIC TRIGGER UACC YES; Urine Blood Negative (Negative); Urine Ketones Negative (Negative); Urine Protein 30 (1+) mg/dL (Neg-Trace)
[2024-05-25 22:15] LABS: Bacteria Urine None Seen (None Seen); Hyaline Casts Urine 0-2 /LPF (0-2); RBC Urine 0-2 /HPF (0-2); Squamous Epithelial Cell Urine 0-2 /HPF (0-2); WBC Urine 0-5 /HPF (0-5)
[2024-05-25] MEDS: oxyCODONE HCl Immed Release 5 MG TABLET PO (22:35)
--- NOTE | 2024-05-25 22:36 | PC.NURSE ---
pt medicated per provider order. effectiveness pending.
[2024-05-26] MEDS: Acetaminophen 325 MG TABLET 650 MG PO (02:25)
[2024-05-26 02:36] VITALS: BP 118/72; PULSE 76; RESP 16; TEMP 36.7; O2SAT 99
== END 2024-05-26 02:39 | disposition home or self-care (01) ==
PROVIDERS: Emergency Provider Emergency Medicine; PCP Internal Medicine Geriatric Medicine
DX: M25.552 Pain in left hip (principal)
CPT/HCPCS: 73502; 81001; 99283

== ENCOUNTER 2024-05-31 11:11 | Day surgery (SDC) | payer MEDICAID, SELFPAY ==
[2024-05-29 07:24] VITALS: BMI 26.3
--- NOTE | 2024-05-30 07:55 | MHC.SHP ---
Pre-Procedural Eval Section A - 24 Hr Update-Section A only Date of Service: 05/31/24 The patient is an INPATIENT: No Changes since office visit: No Cold of Flu in the past 2 weeks, No New Medical Problems, No Changes in Medication and No Patient answered all questions Section B - Complete if H&P > 30 days Chief Complaint: Ventral hernia without obstruction or gangrene Allergies: Allergies Allergy/AdvReac Type Severity Reaction Status Date / Time ceftriaxone Allergy Severe Anaphylaxis Verified 05/25/24 20:25 Iodinated Contrast Media Allergy Severe Anaphylaxis Verified 05/25/24 20:25 [IV Contrast Dye] magnesium hydroxide Allergy Intermediate Rash Verified 05/25/24 20:25 [From Milk of Magnesia] Plan I have reviewed the history and physical and performed a pertinent physical examination on my patient. No changes have occurred unless specified. Time Spent With Patient Time: Total time managing care of this patient today ____ minutes.
[2024-05-31] VITALS (13 sets, daily range): BP systolic 118–139; BP diastolic 67–81; PULSE 63–75; RESP 14–18; TEMP 36.3–36.7; O2SAT 89–98; BMI 25.7
[2024-05-31] MEDS: Lactated Ringers 1,000 ML 100 ML IVCONT (12:17)
--- NOTE | 2024-05-31 16:20 | HO.ANESPROP2 ---
Documented by User: Lacie Johnston NP 05/30/24 09:33 HPI - Anesthesia Eval Consult details Narrative: 54yo F for Open Hernia Ventral Reducible repair with mesh PMFSH Active Problems Active Problems: All Active Problems Adnexal fullness (Acute) Ventral hernia (Acute) H/O resection of large bowel (Acute) Dyspepsia (Acute) Vulvovaginitis (Acute) Seroma due to trauma (Acute) Hydronephrosis (Acute) Recurrent UTI (Acute) Ureteral stricture, right (Acute) Diverticulitis (Acute) Hemorrhoids with complication (Acute) Chronic idiopathic constipation (Acute) Kidney stone (Acute) Complex cyst of left ovary (Acute) Well woman exam (Acute) Metrorrhagia (Acute) Vaginal discharge (Acute) UTI (urinary tract infection) (Acute) Microscopic hematuria (Acute) Vitamin D deficiency (Acute) Hypothyroidism (Acute) Past Medical History Medical History Hemorrhoids with complication Endometrial hyperplasia Heartburn GERD (gastroesophageal reflux disease) Skin lesion of back Kidney stone Vitamin D deficiency Hypothyroidism Family History Family History Father Hypertension Respiratory failure Mother Pancreatic cancer Family history of problems with anesthesia: No Surgical History Surgical History Hx of unilateral oophorectomy History of surgery Tubal ligation status Hx of colonoscopy Hx of esophagogastroduodenoscopy History of Problems with Anesthesia: No Social History Social History Household Members: Spouse Housing: Apartment Are you a primary acute care surgeon to a significant other at home: No Do you presently have visiting nurse or other home services: No Alcohol intake: never Patient Tobacco Use Status: Never used Tobacco Second Hand Smoke Exposure: No Use of substances other than those prescribed or required for medical reasons: No Are you DNR?: No Advance Directives: No Advance Directives Information Provided: Yes service: No Current occupational status: employed Current occupation: [employer] program Sexual orientation: Straight/Heterosexual Gender identity: Female Meds Allergies Allergy/AdvReac Type Severity Reaction Status Date / Time ceftriaxone Allergy Severe Anaphylaxis Verified 05/25/24 20:25 Iodinated Contrast Media Allergy Severe Anaphylaxis Verified 05/25/24 20:25 [IV Contrast Dye] magnesium hydroxide Allergy Intermediate Rash Verified 05/25/24 20:25 [From Milk of Magnesia] Home Medications ?Medication ?Instructions ?Recorded ?Confirmed ?Last Taken ?Type lisinopril 10 mg tablet 10 mg PO DAILY 09/14/22 04/30/24 08/10/23 History levothyroxine 75 mcg tablet 1 tab PO DAILY 12/23/22 04/30/24 05/31/24 06:00 History omeprazole 20 mg capsule,delayed 20 mg PO DAILY 04/18/24 04/30/24 Unknown History release pseudoephedrine HCl 30 mg tablet 30 mg PO BEDTIME 04/18/24 04/30/24 Unknown History (Sudogest) Exam Height,Weight and Vital Signs: Height 5 ft 1 in Weight 63.049 kg Assessment and Plan Assessment Anesthesia Assessment: Chart Reviewed Final Anesthetic Review Family History of Problems with Anesthesia: No History of Problems with Anesthesia: No Documented by User: Brynn Germain MD 05/31/24 14:19 [facility] Past Medical History Medical History Hemorrhoids with complication Endometrial hyperplasia Heartburn GERD (gastroesophageal reflux disease) Skin lesion of back Kidney stone Vitamin D deficiency Hypothyroidism Family History Family History Father Hypertension Respiratory failure Mother Pancreatic cancer Family history of problems with anesthesia: No Surgical History Surgical History Hx of unilateral oophorectomy History of surgery Tubal ligation status Hx of colonoscopy Hx of esophagogastroduodenoscopy History of Problems with Anesthesia: No Social History Social History Household Members: Spouse Housing: Apartment Are you a primary acute care surgeon to a significant other at home: No Do you presently have visiting nurse or other home services: No Alcohol intake: never Patient Tobacco Use Status: Never used Tobacco Second Hand Smoke Exposure: No Use of substances other than those prescribed or required for medical reasons: No Are you DNR?: No Advance Directives: No Advance Directives Information Provided: Yes service: No Current occupational status: employed Current occupation: [employer] Sexual orientation: Straight/Heterosexual Gender identity: Female Meds Allergies Allergy/AdvReac Type Severity Reaction Status Date / Time ceftriaxone Allergy Severe Anaphylaxis Verified 05/25/24 20:25 Iodinated Contrast Media Allergy Severe Anaphylaxis Verified 05/25/24 20:25 [IV Contrast Dye] magnesium hydroxide Allergy Intermediate Rash Verified 05/25/24 20:25 [From Milk of Magnesia] Home Medications ?Medication ?Instructions ?Recorded ?Confirmed ?Last Taken ?Type lisinopril 10 mg tablet 10 mg PO DAILY 09/14/22 04/30/24 08/10/23 History levothyroxine 75 mcg tablet 1 tab PO DAILY 12/23/22 04/30/24 05/31/24 06:00 History omeprazole 20 mg capsule,delayed 20 mg PO DAILY 04/18/24 04/30/24 Unknown History release pseudoephedrine HCl 30 mg tablet 30 mg PO BEDTIME 04/18/24 04/30/24 Unknown History (Sudogest) Assessment and Plan Final Anesthetic Review Family History of Problems with Anesthesia: No History of Problems with Anesthesia: No Documented by User: Mariya Sterling DO 05/31/24 16:23 [facility] Past Medical History Medical History Hemorrhoids with complication Endometrial hyperplasia Heartburn GERD (gastroesophageal reflux disease) Skin lesion of back Kidney stone Vitamin D deficiency Hypothyroidism Family History Family History Father Hypertension Respiratory failure Mother Pancreatic cancer Family history of problems with anesthesia: No Surgical History Surgical History Hx of unilateral oophorectomy History of surgery Tubal ligation status Hx of colonoscopy Hx of esophagogastroduodenoscopy History of Problems with Anesthesia: No Social History Social History Household Members: Spouse Housing: Apartment Are you a primary acute care surgeon to a significant other at home: No Do you presently have visiting nurse or other home services: No Alcohol intake: never Patient Tobacco Use Status: Never used Tobacco Second Hand Smoke Exposure: No Use of substances other than those prescribed or required for medical reasons: No Are you DNR?: No Advance Directives: No Advance Directives Information Provided: Yes service: No Current occupational status: employed Current occupation: [employer] program Sexual orientation: Straight/Heterosexual Gender identity: Female Meds Allergies Allergy/AdvReac Type Severity Reaction Status Date / Time ceftriaxone Allergy Severe Anaphylaxis Verified 05/25/24 20:25 Iodinated Contrast Media Allergy Severe Anaphylaxis Verified 05/25/24 20:25 [IV Contrast Dye] magnesium hydroxide Allergy Intermediate Rash Verified 05/25/24 20:25 [From Milk of Magnesia] Home Medications ?Medication ?Instructions ?Recorded ?Confirmed ?Last Taken ?Type lisinopril 10 mg tablet 10 mg PO DAILY 09/14/22 04/30/24 08/10/23 History levothyroxine 75 mcg tablet 1 tab PO DAILY 12/23/22 04/30/24 05/31/24 06:00 History omeprazole 20 mg capsule,delayed 20 mg PO DAILY 04/18/24 04/30/24 Unknown History release pseudoephedrine HCl 30 mg tablet 30 mg PO BEDTIME 04/18/24 04/30/24 Unknown History (Sudreenast) Exam Exam Date and Time: May 31, 2024 1622 Height,Weight and Vital Signs: Height 5 ft 1 in Weight 63.049 kg Vital Signs Temperature 97.6 F 05/31/24 12:06 Pulse Rate 72 05/31/24 12:06 Respiratory Rate 16 05/31/24 12:06 Blood Pressure 118/69 05/31/24 12:06 Pulse Oximetry 96 05/31/24 12:06 Oxygen Delivery Method Room Air 05/31/24 12:06 Temperature 97.6 F 05/31/24 12:06 Pulse Rate 72 05/31/24 12:06 Respiratory Rate 16 05/31/24 12:06 Blood Pressure 118/69 05/31/24 12:06 Pulse Oximetry 96 05/31/24 12:06 Oxygen Delivery Method Room Air 05/31/24 12:06 Airway Mallampati Class: II TM Dist: >3cm Neck ROM: Full Loose/Missing/Broken Teeth: Yes (chipped molar) Heart: S1S2 Lungs: CTAB Assessment and Plan Assessment Anesthesia Assessment: Anesthesia Plan Discussed and Chart Reviewed Final Anesthetic Review Family History of Problems with Anesthesia: No History of Problems with Anesthesia: No NPO: Yes ASA Class: II Final Preanesthetic Review: No Changes in Pt Med Stat, Meds/Allgs Chart Reviewed, Consent Obtained/Reviewed and Anes Risks/Benef Reviewed Patient Risk: Low Procedure Risk: Low Anesthetic Plan Anesthetic Plan: GA and Agree w/ Assess. and Plan Disposition: Standard PACU
--- NOTE | 2024-05-31 17:24 | W.PM.OPN ---
Operative Note Operative Note Date of Service: 05/31/24 Narrative: Preoperative diagnosis: Infraumbilical midline/ventral incisional hernia Postop diagnosis: The same Procedure [] open ventral incisional hernia repair with Bard mesh Surgeon: [] Marshal Certified Medical Technician: [] Khalida Type of Anesthesia: [] General Indication for surgery: [] Roughly 5 x 4 cm incisional hernia with omental contents Findings: [] Patient brought to the operating room, placed on operating table in supine position, after an adequate level of general anesthesia was induced, the patient's abdomen was prepped and draped in usual sterile fashion. Using an infraumbilical lower midline incision over the hernia in question from the previous surgery, and the scar was excised using Bovie, this carried down through skin, subcutaneous tissue, where hernia sac was identified, circumferentially dissected down the fascia and opened. Omental contents were reduced. Fascia margins were circumferentially cleared omental adhesions. Appropriately sized Bard mesh was placed in this defect and the superficial layer of the mesh was sutured to the surrounding fascia using interrupted 0 Ethibond suture. At completion procedure, mesh was in good position with no tension or gaps. Wound was irrigated, secured hemostasis. It was closed in the following manner; deep interrupted subcutaneous 3-0 Vicryl sutures were initially placed. Interrupted inverted dermal 3-0 Vicryl sutures followed by Steri-Strips and sterile dressings were applied. Wound was infiltrated 0.5% Marcaine at completion. Sponge, needle, and instrument counts reported correct. Patient tolerated the procedure well and emerged from anesthesia stable condition. EBL minimal. Abdominal binder was placed.
[2024-05-31] MEDS: fentaNYL citrate/PF 100 MCG/2 ML VIAL 50 MCG IVPUSH (18:35)
[2024-05-31] MEDS: oxyCODONE HCl Immed Release 5 MG TABLET PO (18:45)
== END 2024-05-31 19:20 | disposition home or self-care (01) ==
PROVIDERS: PCP Internal Medicine Geriatric Medicine; Visit Provider Surgery
PROC: (CPT 49593; principal; 2024-05-31 12:50)
DX: K43.9 Ventral hernia without obstruction or gangrene (principal); Z91.041 Radiographic dye allergy status; K21.9 Gastro-esophageal reflux disease without esophagitis; Z88.8 Allergy status to other drugs, medicaments and biological substances; E55.9 Vitamin D deficiency, unspecified; E03.9 Hypothyroidism, unspecified; Z79.899 Other long term (current) drug therapy; Z98.890 Other specified postprocedural states
CPT/HCPCS: 49593; C1781; J0131; J0736; J1100; J1885; J2250; J2405; J2704; J2795; J3010

== ENCOUNTER → 2024-05-31 11:11 | Outpatient (BNV) | payer MEDICAID, SELFPAY | PROVIDERS: PCP Internal Medicine Geriatric Medicine; Visit Provider Surgery | DX: K43.9 Ventral hernia without obstruction or gangrene (principal) | CPT/HCPCS: 49593 ==

== ENCOUNTER 2024-06-11 10:30 | Outpatient (AMB) | payer MEDICAID, SELFPAY ==
[2024-06-11 10:43] VITALS: PULSE 62; BMI 25.4
--- NOTE | 2024-06-11 10:43 | A.OFFVIS_ITS ---
Vital Signs 06/11/24 10:43 Height 5 ft 1 in Weight 134 lb 7.712 oz BMI 25.4 Pulse 62 Intake Visit Reasons: S/P ventral hernia w/mesh Intake Note: Patient is seen in office for post op assessment post open ventral incisional hernia repair with Bard mesh. Pt c/o: denies any concerns healing as expected Op:05/31/24 Non Destructive Testing Supervisor Required: No Accompanied by: Family/Other Allergies ceftriaxone Allergy (Severe, Verified 06/11/24 10:43) Anaphylaxis Iodinated Contrast Media [IV Contrast Dye] Allergy (Severe, Verified 06/11/24 10:43) Anaphylaxis magnesium hydroxide [From Milk of Magnesia] Allergy (Intermediate, Verified 06/11/24 10:43) Rash HPI Comments Details: Patient presents for follow-up. Aside from incisional discomfort which is improving she is otherwise doing well. Tolerating a diet. Having regular bowel habits. Increasing her activity level. No wound issues. Patient was wearing her abdominal binder [facility] Medical History Hemorrhoids with complication Endometrial hyperplasia Heartburn GERD (gastroesophageal reflux disease) Skin lesion of back Kidney stone Vitamin D deficiency Hypothyroidism Surgical History Hx of ventral hernia repair (05/31/24) Hx of unilateral oophorectomy History of surgery Tubal ligation status Hx of colonoscopy Hx of esophagogastroduodenoscopy Family History Father Hypertension Respiratory failure Mother Pancreatic cancer Social History Household Members: Spouse Housing: Apartment Are you a primary director of primary care to a significant other at home: No Do you presently have visiting nurse or other home services: No Alcohol intake: never Patient Tobacco Use Status: Never used Tobacco Second Hand Smoke Exposure: No service: No Current occupational status: employed Current occupation: [employer] Sexual orientation: Straight/Heterosexual Gender identity: Female Female Reproductive History Menstrual Age of Menarche: 16 Physical Exam Vital Signs: Last Vital Signs Pulse 62 06/11/24 10:43 BMI result Body Mass Index 25.4 GI Other: Abdomen is soft. Wound clean dry and intact healing very well Assessment & Plan Assessment & Plan (1) Postop check: Code(s): Z09 - Encounter for follow-up examination after completed treatment for conditions other than malignant neoplasm Category: Surgical (2) Status post repair of ventral hernia: Code(s): Z98.890 - Other specified postprocedural states; Z87.19 - Personal history of other diseases of the digestive system Category: Surgical Plan Patient has been given local instructions including continue to wear the abdominal binder, no to start work in a few weeks time with light duty and will otherwise follow-up p.r.n.. All questions answered Coding Level of Care Code Global (08057) Diagnoses Postop check Z09 Status post repair of ventral hernia Z98.890; Z87.19
== END 2024-06-11 10:57 | disposition home or self-care (01) ==
PROVIDERS: PCP Internal Medicine Geriatric Medicine; Visit Provider Surgery
DX: K43.9 Ventral hernia without obstruction or gangrene (principal); Z09 Encounter for follow-up examination after completed treatment for conditions other than malignant neoplasm
CPT/HCPCS: 99212

== ENCOUNTER → 2024-06-11 10:30 | Outpatient (BNVA) | payer MEDICAID, SELFPAY | PROVIDERS: PCP Internal Medicine Geriatric Medicine; Visit Provider Surgery | DX: Z09 Encounter for follow-up examination after completed treatment for conditions other than malignant neoplasm (principal); Z87.19 Personal history of other diseases of the digestive system; Z98.890 Other specified postprocedural states | CPT/HCPCS: 99212 ==

== ENCOUNTER 2024-06-14 09:28 | Outpatient (AMB) | payer MEDICAID, SELFPAY ==
[2024-06-14 09:45] VITALS: BMI 25.4
--- NOTE | 2024-06-14 09:45 | A.OFFVIS_ITS ---
Vital Signs 06/14/24 09:45 Height 5 ft 1 in Weight 134 lb 7.712 oz BMI 25.4 Intake Visit Reasons: pre op Car Driver Required: Yes Car Driver Language: Senior Communications Engineer Services: Car Driver Present (in person) Car Driver Name: Clair INGRAM Information Interpreted: non-clinical & clinical Vehicle Technician: Vehicle Technician Present Accompanied by: Grand Child Allergies ceftriaxone Allergy (Severe, Verified 06/14/24 09:46) Anaphylaxis Iodinated Contrast Media [IV Contrast Dye] Allergy (Severe, Verified 06/14/24 09:46) Anaphylaxis magnesium hydroxide [From Milk of Magnesia] Allergy (Intermediate, Verified 06/14/24 09:46) Rash Is last menstrual period known: Yes Last menstrual period: 09/11/20 Post menopausal: Yes Patient : No Do you need a note to return to daycare/school/sports/work: Yes (for surgery on tuesday) HPI Comments Details: Presenting for pelvic ultrasound follow-up, no history of vaginal bleeding, pelvic ultrasound showed the following: Uterus: The uterus is retroflexed and measures 6.4 x 3.9 x 3.9 cm. The double wall endometrial thickness is 5 mm. In the endometrial cavity, there is a polypoid mass present measuring about 4 mm (see rouse image). The uterus is smooth in contour and has normal myometrial echogenicity. A small intramural fundal fibroid seen measuring 0.5 cm. Nabothian cysts and calcifications are seen in the cervix Adnexa: History of left oophorectomy. There is normal color flow to the right adnexa. There is no ovarian torsion. There is no pelvic ascites or fluid collection. Right ovary measures 2.2 x 1.2 x 1.1 cm for a volume of 1.5 mL. [facility] Medical History Hemorrhoids with complication Endometrial hyperplasia Heartburn GERD (gastroesophageal reflux disease) Skin lesion of back Kidney stone Vitamin D deficiency Hypothyroidism Surgical History Hx of ventral hernia repair (05/31/24) Hx of unilateral oophorectomy History of surgery Tubal ligation status Hx of colonoscopy Hx of esophagogastroduodenoscopy Family History Father Hypertension Respiratory failure Mother Pancreatic cancer Social History Household Members: Spouse Housing: Apartment Are you a primary tree care foreman to a significant other at home: No Do you presently have visiting nurse or other home services: No Alcohol intake: never Patient Tobacco Use Status: Never used Tobacco Second Hand Smoke Exposure: No service: No Current occupational status: employed Current occupation: [employer] program Sexual orientation: Straight/Heterosexual Gender identity: Female Female Reproductive History Menstrual Age of Menarche: 16 Date of last menstrual period: 09/11/20 Total pregnancies: 2 Full term: 2 Review of Systems Card Reports as per HPI and Reports no additional complaints Resp Reports as per HPI and Reports no additional complaints GI Reports as per HPI and Reports no additional complaints Reports as per HPI Physical Exam Const General: cooperative, healthy appearing and comfortable Resp Effort & Inspection: normal respiratory effort Auscultation: clear to auscultation bilaterally Percussion: percussion normal Cardio Palpation: normal PMI Rate: regular rate Rhythm: regular rhythm Heart sounds: no murmurs and no rubs Peripheral pulses: Peripheral pulses 2+ throughout GI Inspection: Yes normal to inspection Palpation (GI): Soft to palpation, nontender, no guarding, not rigid and No hepatosplenomegaly present Percussion: Yes normal to percussion Auscultation: normal bowel sounds Rectal Exam - Female: deferred Assessment & Plan Assessment & Plan (1) Endometrial polyp: Comment: With thickened endometrial stripe 5 mm in menopause History of endometrial hyperplasia in 03/03 Code(s): N84.0 - Polyp of corpus uteri Category: Medical Plan: Discussed with the patient the results the ultrasound showing 5 mm endometrial stripe and possible 4 mm endometrial polyp. Discussed with the patient endometrial thickness above 4 mm in menopause , the differential diagnosis of a thickened endometrium includes but not limited to endometrial polyp, hyperplasia or carcinoma. Explained to the patient that endometrial each thickness is less predictive of endometrial neoplasia in asymptomatic patients, i.e. those without postmenopausal uterine bleeding. The sensitivity and specificity for detecting endometrial carcinoma at an endometrial thickness of >= 5mm was 83 and 72 percent, respectively; this is lower than in patients with bleeding. Studies have shown that postmenopausal patients without uterine bleeding who had an endometrial thickness >11 mm had an endometrial carcinoma risk of 6.7 percent; this risk is similar to postmenopausal patients with bleeding and an endometrial thickness >5 mm. Recommended endometrial sampling to rule endometrial pathology via either office endometrial biopsy or diagnostic hysteroscopy/D&C with possible polypectomy/myomectomy. All pros and cons, risks and benefits of each approach were discussed with the patient, the patient decided to proceed with hysteroscopy D&C possible polypectomy/myomectomy. Discussed with the patient the procedure , all benefits and risks including but not limited to inability to complete the procedure , insufficient endometrial tissue for a complete evaluation of the endometrial cavity , bleeding, infection, possible need for blood transfusion with all its risk ( HIV, syphilis, Hepatitis, anaphylaxis shock, others..), injury to bladder, rectum, possible need for laparoscopy/laparotomy or hysterectomy. The patient verbalized understanding and signed the consent. 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 Will repeat pelvic ultrasound periodically. Instructions given to patient to call in case any of the following occurs: pressure symptoms, abnormal uterine bleeding, pelvic pain; and to schedule a future office follow-up appointment for reassessment and to order a repeat ultrasound . All questions answered, the patient verbalized understanding and agreed with the plan . Coding Level of Care Code Est Pt Level 3 (82866) Diagnoses Endometrial polyp N84.0 Uterine myoma D25.9
== END 2024-06-14 10:12 | disposition home or self-care (01) ==
LOC: HO.HWS 09:28
PROVIDERS: PCP Internal Medicine Geriatric Medicine; Visit Provider Obstetrics & Gynecology
DX: N84.0 Polyp of corpus uteri (principal); D25.9 Leiomyoma of uterus, unspecified
CPT/HCPCS: 99213

== ENCOUNTER → 2024-06-14 09:28 | Outpatient (BNVA) | payer MEDICAID, SELFPAY | PROVIDERS: PCP Internal Medicine Geriatric Medicine; Visit Provider Obstetrics & Gynecology | DX: D25.9 Leiomyoma of uterus, unspecified (principal); N84.0 Polyp of corpus uteri | CPT/HCPCS: 99212 ==

== ENCOUNTER 2024-07-04 15:27 | Outpatient (REF) | payer MEDICAID, SELFPAY ==
[2024-07-04 17:28] LABS: Anion Gap 13 (12-20); Blood Urea Nitrogen 12 mg/dL (9-16); Calcium 10.3 mg/dL (8.4-10.2); Carbon Dioxide 24 mmol/L (22-29); Chloride 106 mmol/L (96-108); Estimated Glomerular Filt Rate > 60; Glucose Random 91 mg/dL (60-115); Sodium 139 mmol/L (135-145)
[2024-07-04 17:47] LABS: TSH reflex Free T4 0.17 uIU/mL (0.32-4.0)
[2024-07-04 18:10] LABS: Creatinine Urine 94.44 mg/dL; Microalbum/Creatinine Ratio Ur 257.3 ug/mg cr (<30)
[2024-07-04 18:21] LABS: Free T4 (Free Thyroxine) 0.96 ng/dL (0.71-1.85)
== END 2024-07-04 15:28 | disposition home or self-care (01) ==
LOC: HO.HHCL 15:27
PROVIDERS: Visit Provider Internal Medicine Geriatric Medicine
DX: R80.1 Persistent proteinuria, unspecified (principal); E03.9 Hypothyroidism, unspecified
CPT/HCPCS: 36415; 80048; 82043; 82570; 84439; 84443

== ENCOUNTER 2024-07-13 07:36 | Day surgery (SDC) | payer MEDICAID, SELFPAY ==
[2024-07-11 07:12] VITALS: BMI 25.3
--- NOTE | 2024-07-11 13:03 | HO.ANESPROP2 ---
Documented by User: Lacie Johnston NP 07/11/24 13:05 HPI - Anesthesia Eval Consult details Narrative: 54yo F for D&C Hysteroscopy,possible myomectomy,possible polypectomy, s/p ventral hernia 05/2024 with GA-LMA 4 PMFSH Active Problems Active Problems: All Active Problems Uterine myoma (Acute) Endometrial polyp (Acute) Status post repair of ventral hernia (Acute) Postop check (Acute) Adnexal fullness (Acute) Ventral hernia (Acute) H/O resection of large bowel (Acute) Dyspepsia (Acute) Vulvovaginitis (Acute) Seroma due to trauma (Acute) Hydronephrosis (Acute) Recurrent UTI (Acute) Ureteral stricture, right (Acute) Diverticulitis (Acute) Hemorrhoids with complication (Acute) Chronic idiopathic constipation (Acute) Kidney stone (Acute) Complex cyst of left ovary (Acute) Well woman exam (Acute) Metrorrhagia (Acute) Vaginal discharge (Acute) UTI (urinary tract infection) (Acute) Microscopic hematuria (Acute) Vitamin D deficiency (Acute) Hypothyroidism (Acute) Past Medical History Medical History Hemorrhoids with complication Endometrial hyperplasia Heartburn GERD (gastroesophageal reflux disease) Skin lesion of back Kidney stone Vitamin D deficiency Hypothyroidism Family History Family History Father Hypertension Respiratory failure Mother Pancreatic cancer Family history of problems with anesthesia: No Surgical History Surgical History Hx of ventral hernia repair (05/31/24) Hx of unilateral oophorectomy History of surgery Tubal ligation status Hx of colonoscopy Hx of esophagogastroduodenoscopy History of Problems with Anesthesia: No Social History Social History Household Members: Spouse Housing: Apartment Are you a primary career development consultant to a significant other at home: No Do you presently have visiting nurse or other home services: No Alcohol intake: never Patient Tobacco Use Status: Never used Tobacco Second Hand Smoke Exposure: No Use of substances other than those prescribed or required for medical reasons: No Are you DNR?: No Advance Directives: No Advance Directives Information Provided: Yes Recently lost weight without trying: No Nutrition Risks: No Nutritional Risk Patient : No service: No Current occupational status: employed Current occupation: [employer] Sexual orientation: Straight/Heterosexual Gender identity: Female Meds Allergies Allergy/AdvReac Type Severity Reaction Status Date / Time ceftriaxone Allergy Severe Anaphylaxis Verified 07/13/24 07:48 Iodinated Contrast Media Allergy Severe Anaphylaxis Verified 07/13/24 07:48 [IV Contrast Dye] magnesium hydroxide Allergy Intermediate Rash Verified 07/13/24 07:48 [From Milk of Magnesia] Home Medications ?Medication ?Instructions ?Recorded ?Confirmed ?Last Taken ?Type lisinopril 10 mg tablet 10 mg PO DAILY 09/14/22 07/13/24 08/10/23 History levothyroxine 75 mcg tablet 1 tab PO DAILY 12/23/22 07/13/24 05/31/24 06:00 History pseudoephedrine HCl 30 mg tablet 30 mg PO BEDTIME 04/18/24 06/11/24 Unknown History (Sudogest) Exam Height,Weight and Vital Signs: Height 5 ft 1 in Weight 60.781 kg Pertinent Lab Results Pertinent Lab Results: Laboratory Tests 08/12/23 05:15 WBC 10.6 Hgb 10.6 L Hct 32.6 L Plt Count 149 L Assessment and Plan Assessment Anesthesia Assessment: Chart Reviewed Final Anesthetic Review Family History of Problems with Anesthesia: No History of Problems with Anesthesia: No Documented by User: Sondra Alaniz MD 07/13/24 09:03 [facility] Past Medical History Medical History Hemorrhoids with complication Endometrial hyperplasia Heartburn GERD (gastroesophageal reflux disease) Skin lesion of back Kidney stone Vitamin D deficiency Hypothyroidism Family History Family History Father Hypertension Respiratory failure Mother Pancreatic cancer Surgical History Surgical History Hx of ventral hernia repair (05/31/24) Hx of unilateral oophorectomy History of surgery Tubal ligation status Hx of colonoscopy Hx of esophagogastroduodenoscopy Social History Social History Household Members: Spouse Housing: Apartment Are you a primary career development consultant to a significant other at home: No Do you presently have visiting nurse or other home services: No Alcohol intake: never Patient Tobacco Use Status: Never used Tobacco Second Hand Smoke Exposure: No Use of substances other than those prescribed or required for medical reasons: No Are you DNR?: No Advance Directives: No Advance Directives Information Provided: Yes Recently lost weight without trying: No Nutrition Risks: No Nutritional Risk Patient : No service: No Current occupational status: employed Current occupation: [employer] Sexual orientation: Straight/Heterosexual Gender identity: Female Meds Allergies Allergy/AdvReac Type Severity Reaction Status Date / Time ceftriaxone Allergy Severe Anaphylaxis Verified 07/13/24 07:48 Iodinated Contrast Media Allergy Severe Anaphylaxis Verified 07/13/24 07:48 [IV Contrast Dye] magnesium hydroxide Allergy Intermediate Rash Verified 07/13/24 07:48 [From Milk of Magnesia] Home Medications ?Medication ?Instructions ?Recorded ?Confirmed ?Last Taken ?Type lisinopril 10 mg tablet 10 mg PO DAILY 09/14/22 07/13/24 08/10/23 History levothyroxine 75 mcg tablet 1 tab PO DAILY 12/23/22 07/13/24 05/31/24 06:00 History pseudoephedrine HCl 30 mg tablet 30 mg PO BEDTIME 04/18/24 06/11/24 Unknown History (Sudogest) Exam Airway Mallampati Class: II TM Dist: >3cm Neck ROM: Full Loose/Missing/Broken Teeth: No Heart: RRR Lungs: CTA Assessment and Plan Assessment Anesthesia Assessment: Anesthesia Plan Discussed Final Anesthetic Review NPO: Yes ASA Class: II Final Preanesthetic Review: Meds/Allgs Chart Reviewed, Consent Obtained/Reviewed and Anes Risks/Benef Reviewed Patient Risk: Low Procedure Risk: Low Anesthetic Plan Anesthetic Plan: GA Disposition: Standard PACU
[2024-07-13] VITALS (7 sets, daily range): BP systolic 126–140; BP diastolic 74–84; PULSE 63–84; RESP 16–18; TEMP 36.3; O2SAT 97–100; BMI 25.7
--- NOTE | 2024-07-13 08:54 | MHC.SHP ---
Pre-Procedural Eval Section A - 24 Hr Update-Section A only Date of Service: 07/13/24 The patient is an INPATIENT: No Changes since office visit: No Cold of Flu in the past 2 weeks, No New Medical Problems, No Changes in Medication and No Patient answered all questions The patient has been examined within 24 hours of the surgical procedure. The History & Physical has been completed within 30 days and I have reviewed it.: Yes Section B - Complete if H&P > 30 days Chief Complaint: Polyp of corpus uteri Allergies: Allergies Allergy/AdvReac Type Severity Reaction Status Date / Time ceftriaxone Allergy Severe Anaphylaxis Verified 07/13/24 07:48 Iodinated Contrast Media Allergy Severe Anaphylaxis Verified 07/13/24 07:48 [IV Contrast Dye] magnesium hydroxide Allergy Intermediate Rash Verified 07/13/24 07:48 [From Milk of Magnesia] Plan Diagnosis/Plan: Unchanged I have reviewed the history and physical and performed a pertinent physical examination on my patient. No changes have occurred unless specified. Time Spent With Patient Time: Total time managing care of this patient today ____ minutes.
--- NOTE | 2024-07-13 09:38 | P.BOP_ITS ---
Brief Operative Note Date of Service: 07/13/24 Pre-op diagnosis: Endometrial polyp by ultrasound Post-op diagnosis: same Procedure: Hysteroscopy D&C, Polypectomy Surgeon: Delbert Simons MD Anesthesia: GLMA Was an Hotel Dining Room Cashier used for this Procedure?: No Estimated blood loss (mL): 0 Pathology: other (Endometrial Scrapping. Polyp) Condition: stable Disposition: PACU
--- NOTE | 2024-07-13 09:40 | P.OP_ITS ---
Operative Note Operative Note Date of Service: 07/13/24 Narrative: Preop Diagnosis: Endometrial polyp by US Operation: Diagnostic Hysteroscopy, Dilataion & Curettage and polypectomy Post Op Diagnosis: Endometrial Polyp QBL: Minimal Anesthesia: GLMA Surgeon: Delbert Simons MD Data Modeling Architect: None Complication: None Pathology: Endometrial Scrapings, Endometrial polyp Procedure: The patient was put in the dorsal lithotomy position, scrubbed, and draped in the usual manner. A sterile speculum was inserted in the patient's vagina. The anterior lip of the cervix was grasped with a single tooth tenaculum. The cervix was dilated up to 5 mm, then the scope was inserted in the patient's uterus. Inspection revealed endometrial polyp. The Myosure Reach device was used; it was introduced through the operative channel and polypectomy done with no complications. The scope was then taken out from the uterine cavity, sharp curettings was carried on with minimal to moderate amount of tissues retrieved. At the end of the procedure, all instruments were taken out of the patient uterine and vaginal cavity. The single tooth tenaculum was removed and homeostasis was assured using pressure,. The patient tolerated the procedure well and was transferred to the PACU in a stable condition.
== END 2024-07-13 11:10 | disposition home or self-care (01) ==
PROVIDERS: PCP Internal Medicine Geriatric Medicine; Visit Provider Obstetrics & Gynecology
PROC: 0UDB8ZZ Extraction of Endometrium, Via Natural or Artificial Opening Endoscopic (ICD-10-PCS; CPT 58558; principal; 2024-07-13 09:00)
DX: N84.0 Polyp of corpus uteri (principal); D25.9 Leiomyoma of uterus, unspecified; Z90.721 Acquired absence of ovaries, unilateral; Z87.442 Personal history of urinary calculi; Z79.899 Other long term (current) drug therapy; Z88.8 Allergy status to other drugs, medicaments and biological substances; Z91.041 Radiographic dye allergy status
CPT/HCPCS: 58558; 88305; J1100; J1885; J2250; J2405; J2704; J3010

== ENCOUNTER → 2024-07-13 07:36 | Outpatient (BNV) | payer MEDICAID, SELFPAY | PROVIDERS: PCP Internal Medicine Geriatric Medicine; Visit Provider Obstetrics & Gynecology | DX: N84.0 Polyp of corpus uteri (principal) | CPT/HCPCS: 58558 ==

== ENCOUNTER 2024-07-18 13:44 | Outpatient (REF) | payer OTHER, SELFPAY ==
[2024-07-18 17:24] LABS: Bacterial Vaginosis PCR NEGATIVE (Negative); Candida Group PCR NOT DETECTED (Not Detect); Candida glab krusei PCR NOT DETECTED (Not Detect); Trichomonas vaginalis PCR NOT DETECTED (Not Detect)
[2024-07-18 17:30] LABS: CT PCR NOT DETECTED (Not Detect.); NG PCR NOT DETECTED (Not Detect.)
== END 2024-07-18 13:45 | disposition home or self-care (01) ==
LOC: HO.LNP 13:44
PROVIDERS: PCP Internal Medicine Geriatric Medicine; Visit Provider Obstetrics & Gynecology
DX: N76.0 Acute vaginitis (principal); B96.89 Other specified bacterial agents as the cause of diseases classified elsewhere
CPT/HCPCS: 0352U; 87491; 87591; 99212

== ENCOUNTER 2024-07-18 13:44 | Outpatient (AMB) | payer OTHER, SELFPAY ==
--- NOTE | 2024-07-18 14:16 | MHC.OFFVIS ---
Vital Signs 07/18/24 14:18 Height 5 ft 1 in Weight 134 lb BMI 25.3 Intake Visit Reasons: urine dip Briquette Machine Operator Helper Required: Yes Briquette Machine Operator Helper Language: Evaluation Manager Services: Briquette Machine Operator Helper Present (in person) Briquette Machine Operator Helper Name: Clair INGRAM Information Interpreted: non-clinical & clinical Medical Assisting Instructor: Medical Assisting Instructor Present (Clair INGRAM) Accompanied by: Self / Same As Patient Allergies ceftriaxone Allergy (Severe, Verified 07/18/24 14:21) Anaphylaxis Iodinated Contrast Media [IV Contrast Dye] Allergy (Severe, Verified 07/18/24 14:21) Anaphylaxis magnesium hydroxide [From Milk of Magnesia] Allergy (Intermediate, Verified 07/18/24 14:21) Rash Post menopausal: Yes HPI Comments Details: Presenting 5 days post hysteroscopy D&C if complaining of vaginal discharge with odor associated with urinary frequency , no fever or chills , no pelvic pain or bleeding or any other concerns PFSH Medical History Hemorrhoids with complication Endometrial hyperplasia Heartburn GERD (gastroesophageal reflux disease) Skin lesion of back Kidney stone Vitamin D deficiency Hypothyroidism Surgical History Hx of ventral hernia repair (05/31/24) Hx of unilateral oophorectomy History of surgery Tubal ligation status Hx of colonoscopy Hx of esophagogastroduodenoscopy Family History Father Hypertension Respiratory failure Mother Pancreatic cancer Social History Household Members: Spouse Housing: Apartment Are you a primary pet care worker to a significant other at home: No Do you presently have visiting nurse or other home services: No Alcohol intake: never Patient Tobacco Use Status: Never used Tobacco Second Hand Smoke Exposure: No service: No Current occupational status: employed Current occupation: [employer] Sexual orientation: Straight/Heterosexual Gender identity: Female Female Reproductive History Menstrual Age of Menarche: 16 Physical Exam Vital Signs: BMI result Body Mass Index 25.3 Assessment & Plan Assessment & Plan (1) Bacterial vaginosis: Code(s): N76.0 - Acute vaginitis; B96.89 - Other specified bacterial agents as the cause of diseases classified elsewhere Category: Medical Plan: Urine dip done in the office was negative. GC and chlamydia cultures with BV panel taken. Will treat with Flagyl 500 mg p.o. b.i.d. x 7 days, Instructions given to the patient to refrain from sexual activity or to use condoms consistently and correctly during the BV treatment regimen, not to douch, it might increase the risk for relapse, and to call if symptoms persist or recur. Medications: New metronidazole 500 mg PO BID 7 days 14 tabs 0RF Coding Level of Care Code Est Pt Level 3 (23137) Diagnoses Bacterial vaginosis N76.0; B96.89
[2024-07-18 14:18] VITALS: BMI 25.3
== END 2024-07-18 14:42 | disposition home or self-care (01) ==
LOC: HO.HWS 13:44
PROVIDERS: PCP Internal Medicine Geriatric Medicine; Referring Provider Internal Medicine Geriatric Medicine; Visit Provider Obstetrics & Gynecology
DX: N76.0 Acute vaginitis (principal); B96.89 Other specified bacterial agents as the cause of diseases classified elsewhere
CPT/HCPCS: 99213

== ENCOUNTER 2024-07-23 14:22 | Outpatient (REF) | payer OTHER, SELFPAY ==
--- NOTE | ~2024-07-23 | MM_ITS ---
EXAMINATION: MM DIAGNOSTIC DIGITAL BREAST TOMOSYNTHESIS, RIGHT CLINICAL INFORMATION: Follow-up central right breast loosely grouped calcifications, as well as an abutting slightly more medial focal asymmetry at the same depth. COMPARISON: Mammography: 05/25/2024, 05/23/2023, 05/19/2022, 05/16/2021, 05/15/2020, and dating back to 2019. TECHNIQUE: Digital right breast tomosynthesis is performed in full field right 3-D mediolateral view along with computer-aided detection (CAD). Synthesized 2D images are generated from the tomosynthesis. In addition, 2-D magnification right CC and ML views were obtained. FINDINGS: There are scattered areas of fibroglandular density (ACR BI-RADS breast composition Category b). Additional views demonstrate complete effacement of the focal asymmetry in question, consistent with overlapping normal fibroglandular tissues (summation artifact). Loosely grouped calcifications in the central right breast are unchanged in number or morphology from prior exams dating back to 2020, where magnification views were performed at that time. There has been no significant aggressive change and these remain benign. No further follow-up recommended. No suspicious additional findings right breast. MM/MM tomosynthesis added views R IMPRESSION: -There are no findings suspicious for malignancy in the right breast. -There are stable benign findings which are unchanged from 2020. -Recommend the patient return to routine bilateral annual screening. ASSESSMENT: BI-RADS BI-RADS 2 - Benign Findings RECOMMENDATION: 1 year F/U Results were provided to the patient at time of visit by the technologist. This patient's information was entered into a reminder system with a target due date for their next mammogram. Electronically signed by: Luis Daniel Jaramillo MD 07/23/2024 03:19 PM EDT
== END 2024-07-23 14:23 | disposition home or self-care (01) ==
LOC: HO.MAMMO 14:22
PROVIDERS: PCP Internal Medicine Geriatric Medicine; Visit Provider Internal Medicine Geriatric Medicine
DX: R92.1 Mammographic calcification found on diagnostic imaging of breast (principal); N64.89 Other specified disorders of breast
CPT/HCPCS: 77061; 77065

== ENCOUNTER → 2024-07-23 14:30 | Outpatient (BNV) | payer OTHER, SELFPAY | PROVIDERS: PCP Internal Medicine Geriatric Medicine; Visit Provider Radiology Diagnostic Radiology | DX: R92.1 Mammographic calcification found on diagnostic imaging of breast (principal) | CPT/HCPCS: 77061; 77065 ==

== ENCOUNTER 2024-07-30 12:56 | Outpatient (AMB) | payer SELFPAY ==
--- NOTE | 2024-07-30 13:01 | MHC.OFFVIS ---
Vital Signs 07/30/24 13:02 Height 5 ft 1 in Weight 132 lb 4.438 oz BMI 25.0 Intake Visit Reasons: post op/ultrasound follow up Pets And Pet Supplies Salesperson Required: Yes Pets And Pet Supplies Salesperson Language: Roofing Machine Tender Services: Pets And Pet Supplies Salesperson Present (in person) Pets And Pet Supplies Salesperson Name: Clair INGRAM Information Interpreted: non-clinical & clinical Accompanied by: Self / Same As Patient Allergies ceftriaxone Allergy (Severe, Verified 07/30/24 13:03) Anaphylaxis Iodinated Contrast Media [IV Contrast Dye] Allergy (Severe, Verified 07/30/24 13:03) Anaphylaxis magnesium hydroxide [From Milk of Magnesia] Allergy (Intermediate, Verified 07/30/24 13:03) Rash Post menopausal: Yes HPI Comments Details: The patient is presenting post hysteroscopy D&C no complaints minimal vaginal bleeding no feverishness chills or abdominal pain. The pathology showed the following: A. Endometrium, curettage: - Fragment with features of endometrial polyp. - Strips of benign endometrium. - Squamous epithelium within normal limits. - No atypia identified. B. Uterus, polypectomy: Fragments of endometrial polyp; no atypia identified PFSH Medical History Hemorrhoids with complication Endometrial hyperplasia Heartburn GERD (gastroesophageal reflux disease) Skin lesion of back Kidney stone Vitamin D deficiency Hypothyroidism Surgical History Hx of ventral hernia repair (05/31/24) Hx of unilateral oophorectomy History of surgery Tubal ligation status Hx of colonoscopy Hx of esophagogastroduodenoscopy Family History Father Hypertension Respiratory failure Mother Pancreatic cancer Social History Household Members: Spouse Housing: Apartment Are you a primary medical care administrator to a significant other at home: No Do you presently have visiting nurse or other home services: No Alcohol intake: never Patient Tobacco Use Status: Never used Tobacco Second Hand Smoke Exposure: No service: No Current occupational status: employed Current occupation: [employer] Sexual orientation: Straight/Heterosexual Gender identity: Female Female Reproductive History Menstrual Age of Menarche: 16 Review of Systems Const All systems reviewed & are unremarkable except as noted in HPI and below Reports as per HPI and Reports no additional complaints GI Reports no additional complaints Reports no additional complaints Physical Exam Vital Signs: BMI result Body Mass Index 25.0 Assessment & Plan Assessment & Plan (1) Endometrial polyp: Code(s): N84.0 - Polyp of corpus uteri Category: Medical Plan: Discussed with the patient the results of the pathology. Discussed with the patient the sensitivity, specificity, positive and negative predictive value, of endometrial biopsy in detecting endometrial pathology including but not limited to endometrial hyperplasia, cancer and other pathology; instructed the patient to call in case vaginal bleeding bleeding occurs, the next step will be to proceed with further endometrial sampling evaluation to rule out endometrial pathology. All questions answered and the patient verbalized understanding and agreed with the plan. Coding Level of Care Code Est Pt Level 3 (45845) Diagnoses Endometrial polyp N84.0
[2024-07-30 13:02] VITALS: BMI 25.0
== END 2024-07-30 14:06 | disposition home or self-care (01) ==
LOC: HO.HWS 12:56
PROVIDERS: PCP Internal Medicine Geriatric Medicine; Referring Provider Internal Medicine Geriatric Medicine; Visit Provider Obstetrics & Gynecology
DX: N84.0 Polyp of corpus uteri (principal)
CPT/HCPCS: 99213

== ENCOUNTER → 2024-07-30 12:56 | Outpatient (BNVA) | payer MEDICAID, SELFPAY | PROVIDERS: PCP Internal Medicine Geriatric Medicine; Visit Provider Obstetrics & Gynecology | DX: N84.0 Polyp of corpus uteri (principal) | CPT/HCPCS: 99212 ==

== ENCOUNTER 2024-08-10 09:52 | Outpatient (AMB) | payer OTHER, SELFPAY ==
--- NOTE | 2024-08-10 10:00 | A.OFFVIS_ITS ---
Vital Signs 08/10/24 10:02 Height 5 ft 1 in Weight 138 lb 7.205 oz BMI 26.2 BP 108/76 Blood Pressure Location Lt brachial Position Sitting Pulse 80 Pulse Source Pulse Oximeter Pulse Oximetry (%) 97 Oxygen Delivery Method Room Air Intake Visit Reasons: 3 month follow up Intake Note: Crecencia presents in office today for a scheduled 3 mos FUV. This is a progress FUV. CC; Pt reports that they have remained stable since their last visit. Pt does report having recent hernia surgery which they report went well. Pt had ventral hernia repair. Pt does report having intermittent cramping and mild pain in the area of the surgical repair. Pt denies any other sx or concerns. Pt reports having normal bowel movements and no other GI issues. Motel Food Service Supervisor Required: Yes Motel Food Service Supervisor Name: [id number] Erwin Allergies ceftriaxone Allergy (Severe, Verified 08/10/24 10:05) Anaphylaxis Iodinated Contrast Media [IV Contrast Dye] Allergy (Severe, Verified 08/10/24 10:05) Anaphylaxis magnesium hydroxide [From Milk of Magnesia] Allergy (Intermediate, Verified 08/10/24 10:05) Rash HPI HPI 3 month follow up: Details: LAST VISIT H/O resection of large bowel Dyspepsia Diverticulitis Chronic idiopathic constipation S/P colon resection Diverticulitis large intestine Ventral hernia without obstruction or gangrene Plan Patient will make appointment with her surgeon regarding ventral hernia. Currently patient is asymptomatic. Ventral hernia in the left lower abdomen without obstruction seen on CT scan. Continue senna and continue stool softeners. Encouraged patient to increase fluid intake and activity to promote better bowel motility. Patient was encouraged to follow FODMAP diet. List of food recommended as well as list of food to avoid given to patient. Changing her diet might help with bloating. I will see patient in 3 months, sooner on as needed basis. She is agreeable to this plan and verbalizes understanding of instructions. She was given the opportunity to ask questions and all questions answered. ? TODAY'S VISIT Patient is here today for follow-up. Patient reports that she is feeling much better now. Patient had ventral hernia repair in May. Patient reports that she is feeling well. Moving her bowels without any issues daily once or twice a day. Occasional left lower quadrant pain and cramping. Patient is taking Dulcolax and stool softener. No longer has issues with hemorrhoids. Patient reports that her surgical scar healed well. Patient denies any other GI concerning symptoms PFSH Medical History Hemorrhoids with complication Endometrial hyperplasia Heartburn GERD (gastroesophageal reflux disease) Skin lesion of back Kidney stone Vitamin D deficiency Hypothyroidism Surgical History Hx of ventral hernia repair (05/31/24) Hx of unilateral oophorectomy History of surgery Tubal ligation status Hx of colonoscopy Hx of esophagogastroduodenoscopy Family History Father Hypertension Respiratory failure Mother Pancreatic cancer Social History Household Members: Spouse Housing: Apartment Are you a primary careers counsellor to a significant other at home: No Do you presently have visiting nurse or other home services: No Alcohol intake: never Patient Tobacco Use Status: Never used Tobacco Second Hand Smoke Exposure: No service: No Current occupational status: employed Current occupation: [employer] program Sexual orientation: Straight/Heterosexual Gender identity: Female Female Reproductive History Menstrual Age of Menarche: 16 Review of Systems Const Denies weight gain and Denies weight loss ENT Reports no additional complaints, Denies dysphagia and Denies odynophagia Card Reports no additional complaints Resp Reports no additional complaints GI Denies abdominal pain, Denies belching, Denies melena, Denies bloating, Denies change in bowel habits, Denies dysphagia, Denies excessive flatus, Denies dyspepsia, Denies heartburn, Denies diarrhea, Denies loose stools, Denies nausea, Denies odynophagia and Denies vomiting Musc Reports no additional complaints Neuro Reports no additional complaints Psych Reports no additional complaints Endo Reports no additional complaints Physical Exam Vital Signs: Last Vital Signs Pulse 80 08/10/24 10:02 BP 108/76 08/10/24 10:02 Pulse Ox 97 08/10/24 10:02 Oxygen Delivery Method Room Air 08/10/24 10:02 BMI result Body Mass Index 26.2 Const General: healthy appearing, no acute distress and well developed Nutritional Appearance: well nourished Orientation/consciousness: patient oriented x3 Resp Effort & Inspection: normal respiratory effort, able to speak in complete sentences, no tracheal deviation and symmetric chest movement Auscultation: clear to auscultation bilaterally Cardio Rate: regular rate GI Other: old scars Inspection: Yes distended Palpation (GI): Soft to palpation, not firm, nontender, no guarding and No hepatosplenomegaly present Auscultation: normal bowel sounds General: Yes no CVA tenderness Back/Spine/Pelvis Back: no CVA tenderness Skin General skin exam: elasticity normal, turgor normal and dry skin Neuro General: patient oriented x3 Psych Appearance: grossly normal Mental Status: mental status grossly normal Assessment & Plan Assessment & Plan (1) H/O resection of large bowel: Code(s): Z90.49 - Acquired absence of other specified parts of digestive tract Category: Surgical (2) Dyspepsia: Code(s): R10.13 - Epigastric pain Category: Surgical (3) Diverticulitis: Code(s): K57.92 - Diverticulitis of intestine, part unspecified, without perforation or abscess without bleeding Category: Medical (4) Chronic idiopathic constipation: Code(s): K59.04 - Chronic idiopathic constipation Category: Medical (5) Diverticulitis large intestine: Code(s): K57.32 - Diverticulitis of large intestine without perforation or abscess without bleeding Category: Surgical Qualifiers: Diverticulitis bleeding: without bleeding Diverticulitis complication: without perforation or abscess Qualified Code(s): K57.32 - Diverticulitis of large intestine without perforation or abscess without bleeding Plan Patient will continue taking Dulcolax and stool softeners. Increase fluid intake and activity to promote better bowel motility. Patient can take it MiraLax as needed. Probiotics daily. Follow-up in 6 months, sooner on as needed basis. Patient is agreeable to this plan and verbalizes understanding of instructions. She was given the opportunity to ask questions and all questions answered. Thank you for allowing me to participate in her care Medications: New polyethylene glycol 3350 (Miralax) 17 grams PO DAILY 510 grams 2RF Refilled bisacodyl 10 mg (2 x 5 mg) PO DAILY 60 tabs 2RF docusate sodium 200 mg (2 x 100 mg) PO BEDTIME 180 caps 3RF K59.00 - Constipation, unspecified Coding Level of Care Code Est Pt Level 3 (22162) Diagnoses H/O resection of large bowel Z90.49 Dyspepsia R10.13 Diverticulitis K57.92 Chronic idiopathic constipation K59.04 Diverticulitis of large intestine without perforation or abscess without bleeding K57.32 Diverticulitis bleeding: without bleeding Diverticulitis complication: without perforation or abscess Time Spent (min) 25 Comment 15 minutes spent with patient and additional 10 minutes spent reviewing her re cords
[2024-08-10 10:02] VITALS: BP 108/76; PULSE 80; O2SAT 97; BMI 26.2
== END 2024-08-10 10:41 | disposition home or self-care (01) ==
PROVIDERS: PCP Internal Medicine Geriatric Medicine; Visit Provider Nurse Practitioner Family
DX: Z90.49 Acquired absence of other specified parts of digestive tract (principal); R10.13 Epigastric pain; K57.92 Diverticulitis of intestine, part unspecified, without perforation or abscess without bleeding; K59.04 Chronic idiopathic constipation; K57.32 Diverticulitis of large intestine without perforation or abscess without bleeding
CPT/HCPCS: 99213

== ENCOUNTER → 2024-08-10 09:52 | Outpatient (BNVA) | payer OTHER, SELFPAY | PROVIDERS: PCP Internal Medicine Geriatric Medicine; Visit Provider Nurse Practitioner Family | DX: R10.13 Epigastric pain (principal); K59.04 Chronic idiopathic constipation; K57.32 Diverticulitis of large intestine without perforation or abscess without bleeding; K57.92 Diverticulitis of intestine, part unspecified, without perforation or abscess without bleeding; Z90.49 Acquired absence of other specified parts of digestive tract | CPT/HCPCS: 99212 ==

== ENCOUNTER → 2024-09-18 10:59 | Outpatient (REF) | payer OTHER, SELFPAY ==
--- NOTE | ~2024-09-18 | NM_ITS ---
EXAMINATION: RENAL DYNAMIC IMAGING STUDY WITH LASIX CLINICAL INFORMATION: Hydronephrosis. COMPARISON: The previous study dated 04/15/2020 is available for comparison. CT scan of the abdomen and pelvis dated 03/19/2024 and renal ultrasound dated 03/14/2024 are available for comparison. TECHNIQUE: Serial gamma scintillation camera images were obtained over the posterior trunk during the initial transit and subsequent distribution of a bolus intravenous injection of 10.0 mCi of Tc-99m DTPA. At 30 minutes later, 33 mg of Lasix was administered intravenously and an additional 19 minutes of images obtained. The study was terminated earlier than the usual 30 minutes post Lasix administration because of the patient's urgency to void. FINDINGS: Initial rapid sequence images show prompt and bilaterally symmetrical flow to the kidneys. Subsequent sequential static images obtained up to 30 minutes show good concentration bilaterally. The activity in the left kidney is slightly diminished compared to the right and this kidney also appears slightly smaller in size than the right. There is evidence of excretory function bilaterally by 3 minutes postinjection. There are bladder is well visualized by 10 minutes. At 30 minutes post injection there is good accumulation of activity in the urinary bladder and only a small amount of retained activity in the left renal pelvis. The right renal pelvis shows moderate to marked retention and there is mild pyelocaliectasis. Following Lasix administration, there is prompt washout from both renal collecting systems. At the end of the study there is almost no retained activity in either renal collecting system and a full urinary bladder is visualized. The T-1/2 washout times following Lasix administration are: Left 5 minutes and right 9 minutes. The relative function of the two kidneys based on the 2-3 minute images are: Left 43% and right 57%. NM/NM renal flow w pharm int IMPRESSION: LEFT KIDNEY: Normal perfusion and function. No hydronephrosis or outflow obstruction. The slightly diminished function of this kidney compared to the right side as quantitated above is likely due to its slightly smaller size. RIGHT KIDNEY: Normal perfusion and function. Mild hydronephrosis is present but there is no significant outflow obstruction. Electronically signed by: Jose Green MD 10/24/2024 03:21 PM [facility]
== END ==
LOC: HO.NUCMED 10:59
PROVIDERS: PCP Internal Medicine Geriatric Medicine; Visit Provider Nurse Practitioner Family
DX: N13.30 Unspecified hydronephrosis (principal)
CPT/HCPCS: 78708; A9539; J1940

== ENCOUNTER 2024-10-03 11:18 | Outpatient (REF) | payer OTHER, SELFPAY ==
[2024-10-03 13:55] LABS: Anion Gap 14 (12-20); Blood Urea Nitrogen 11 mg/dL (9-16); Calcium 9.7 mg/dL (8.4-10.2); Carbon Dioxide 26 mmol/L (22-29); Chloride 104 mmol/L (96-108); Estimated Glomerular Filt Rate > 60; Glucose Random 104 mg/dL (60-115); Potassium 3.7 mmol/L (3.3-5.1); Sodium 140 mmol/L (135-145)
[2024-10-03 14:01] LABS: TSH reflex Free T4 2.86 uIU/mL (0.32-4.0)
[2024-10-03 14:03] LABS: HIV AB/AG Nonreactive (Nonreactive); HIV Num 1 0.04 S/CO (0.00-0.99); ~HepC Num1 0.13 S/CO (0.00-0.79); ~Hepatitis C Antibody Nonreactive (Nonreactive)
[2024-10-03 14:08] LABS: Creatinine Urine 124.09 mg/dL; Microalbum/Creatinine Ratio Ur 539.1 ug/mg cr (<30)
== END 2024-10-03 11:19 | disposition home or self-care (01) ==
LOC: HO.HHCL 11:18
PROVIDERS: Visit Provider Internal Medicine Geriatric Medicine
DX: Z00.00 Encounter for general adult medical examination without abnormal findings (principal); Z11.4 Encounter for screening for human immunodeficiency virus [HIV]; E03.9 Hypothyroidism, unspecified; R80.1 Persistent proteinuria, unspecified
CPT/HCPCS: 36415; 80048; 82043; 82570; 84443; 86803; 87389

== ENCOUNTER 2024-11-06 09:30 | Outpatient (AMB) | payer OTHER, SELFPAY ==
--- NOTE | 2024-11-06 09:32 | A.OFFVIS_ITS ---
Intake Visit Reasons: 2m/nuclear scan results(set) Intake Note: Patient presents today for follow up on: kidney stone, hydronephrosis, nuclear scan results Imaging Completed: 09/18/24 Urology Medications: none Blood Thinner: none Air Conditioning Specialist Required: Yes Air Conditioning Specialist Services: Air Conditioning Specialist Present Air Conditioning Specialist Name: RODOLFO CRISTINAFernandoGE[facility] Accompanied by: Self / Same As Patient Allergies ceftriaxone Allergy (Severe, Verified 11/06/24 10:35) Anaphylaxis Iodinated Contrast Media [IV Contrast Dye] Allergy (Severe, Verified 11/06/24 10:35) Anaphylaxis magnesium hydroxide [From Milk of Magnesia] Allergy (Intermediate, Verified 11/06/24 10:35) Rash Medication List - Last Reconciled 11/06/24 by DIMPLE Contreras- bisacodyl 10 mg (2 x 5 mg) PO DAILY docusate sodium 200 mg (2 x 100 mg) PO BEDTIME hydrocortisone 2.5% (Proctosol HC) 1 appl ME BID-QID PRN hydrocortisone acetate (Anucort-HC) 25 mg ME BID levothyroxine 1 tab PO DAILY lisinopril 10 mg PO DAILY polyethylene glycol 3350 (Miralax) 17 grams PO DAILY pseudoephedrine HCl (Sudogest) 30 mg PO BEDTIME terconazole 0.8% 1 appful vaginal BEDTIME 3 days tramadol 50 mg PO BID PRN HPI Comments Details: Maryann is a pleasant 54-year-old Czech-speaking female of Dr. Liao. She has a past medical history of hemorrhoids with complication, endometrial hyperplasia, GERD, nephrolithiasis, hypothyroidism, and vitamin-D deficiency. She presents to the office today for a follow-up of her longstanding history of nephrolithiasis. Of note, during last office visit approximately 6 months ago renal imaging noting mild right-sided hydronephrosis at which time a nuclear r enal scan was ordered for further assessment evaluation. These results were reviewed with the patient today. The T half washout times following lysis administration are left 5 minutes in right 9 minutes. The relative function of the 2 kidneys based on a 2-3 minute imaging are left 43% and right 57%. Left kidney with normal perfusion and function. No hydronephrosis or outlet flow obstruction. Right kidney with normal perfusion and function. Mild hydronephrosis is present but there is no significant outflow obstruction. She discusses at length her longstanding history of nephrolithiasis and undergoing multiple interventions in [place] many years ago. She currently denies any bothersome urinary issues or concerns. She reports be happy with current voiding parameters. She denies urinary urgency, urinary frequency, incontinence, nocturia, hematuria, dysuria, foul smelling urine, changes to urinary stream, flank pain, fever, and or chills. She is happy with her current voiding parameters. BUN: 07/06 10, 07/06 11, 08/06 10, 04/06 12, 07/07 12, 10/07 0.79 CREATININE: 09/05 0.95, 07/06 0.84, 08/06 0.77, 04/06 0.65, 07/07 0.78, 10/07 0.79 In office urinalysis results reviewed with the patient today. She discusses following up with Nephrology for her protenuria. She otherwise offers no other issues or concerns at this time. PREVIOUS OFFICE NOTE: Nephrolithiasis Longstanding Prior left ESWL 2019 On prior imaging was found to have right-sided extrarenal pelvis versus UPJ obstruction Lasix renogram 2019 showed good emptying Imaging - 02/01 CT - no stones during evaluation for abdominal discomfort -01/06 CT- Mild right hydronephrosis with relative decompression of the ureter at the ureterovesicular junction which may reflect a degree of underlying UPJ stenosis; ongoing/ stable surveillance imaging -04/05- renal ultrasound Mild right hydroureteronephrosis similar to prior. No nephrolithiasis appreciated. [facility] Medical History Hemorrhoids with complication Endometrial hyperplasia Heartburn GERD (gastroesophageal reflux disease) Skin lesion of back Kidney stone Vitamin D deficiency Hypothyroidism Surgical History Hx of ventral hernia repair (05/31/24) Hx of unilateral oophorectomy History of surgery Tubal ligation status Hx of colonoscopy Hx of esophagogastroduodenoscopy Family History Father Hypertension Respiratory failure Mother Pancreatic cancer Social History Household Members: Spouse Housing: Apartment Are you a primary customer care associate to a significant other at home: No Do you presently have visiting nurse or other home services: No Alcohol intake: never Patient Tobacco Use Status: Never used Tobacco Second Hand Smoke Exposure: No service: No Current occupational status: employed Current occupation: [employer] Sexual orientation: Straight/Heterosexual Gender identity: Female Female Reproductive History Menstrual Age of Menarche: 16 Review of Systems Const Reports no additional complaints Eyes Reports no additional complaints ENT Reports no additional complaints Card Reports no additional complaints Resp Reports no additional complaints GI Reports as per HPI Reports as per HPI Musc Reports no additional complaints Neuro Reports no additional complaints Psych Reports no additional complaints Endo Reports as per HPI Danis/Lymph Reports no additional complaints Aller/Immun Reports no additional complaints Physical Exam Const General: cooperative, healthy appearing, comfortable, no acute distress, well developed, alert and awake Nutritional Appearance: average body habitus Orientation/consciousness: patient oriented x3 Limitations: no limitations HEENT Head: Yes normal to inspection, Yes normocephalic and Yes atraumatic Ears: hearing grossly normal bilaterally Eyes General: appearance normal, both eyes and all related structures Neck Neck: Yes normal visual inspection and Yes trachea midline Chest Chest palpation & inspection: normal inspection of the chest Resp Effort & Inspection: normal respiratory effort and able to speak in complete sentences Cardio Rate: regular rate GI Inspection: Yes normal to inspection General: Yes no CVA tenderness Back/Spine/Pelvis Back: no CVA tenderness Skin General skin exam: no rashes or lesions noted Neuro General: patient oriented x3 Extrem General: Yes normal to inspection Psych Appearance: grossly normal and well kempt Mental Status: mental status grossly normal Speech and movement: Normal speech and movement present and Clear speech present Affect: normal affect Attitude: cooperative Thought process: Normal thought process present Thought content: Normal thought content present Insight: Fair insight present (Psych) Judgement: Fair judgement present (Psych) Results AMB Urinalysis, Automated UA Leukoctes 0 [facility]cy/uL Last Edit by Maxwell Torres on 11/06/24 09:45 UA Nitrite Last Edit by Maxwell Torres on 11/06/24 09:45 UA Urobilinogen 0.2 mg/dL Last Edit by Maxwell Torres on 11/06/24 09:45 UA Protein 30 mg/dL Last Edit by Maxwell Torres on 11/06/24 09:45 UA pH 6.0 Last Edit by Maxwell Torres on 11/06/24 09:45 UA Blood 0 Americo/uL Last Edit by Maxwell Torres on 11/06/24 09:45 UA Specific [place] 1.015 Last Edit by Maxwell Torres on 11/06/24 09:45 UA Ketone Last Edit by Maxwell Torres on 11/06/24 09:45 UA Bilirubin 0 mg/dL Last Edit by Maxwell Torres on 11/06/24 09:45 UA Glucose 0 mg/dL Last Edit by Maxwell Torres on 11/06/24 09:45 Results Reviewed Results Reviewed: Laboratory Last Values Urine pH (Auto) 6.0 11/06/24 09:42 Specific [place] (Auto) 1.015 11/06/24 09:42 Urine Protein (Auto) 30 mg/dL 11/06/24 09:42 Glucose (UA)(Auto) 0 mg/dL 11/06/24 09:42 Urine Blood (Auto) 0 Americo/uL 11/06/24 09:42 Urine Bilirubin (Auto) 0 mg/dL 11/06/24 09:42 Urine Urobilinogen (Auto) 0.2 mg/dL 11/06/24 09:42 Leukocyte Esterase (Auto) 0 [facility]/uL 11/06/24 09:42 Date of Service: 09/18/24 EXAMINATION: RENAL DYNAMIC IMAGING STUDY WITH LASIX FINDINGS: Initial rapid sequence images show prompt and bilaterally symmetrical flow to the kidneys. Subsequent sequential static images obtained up to 30 minutes show good concentration bilaterally. The activity in the left kidney is slightly diminished compared to the right and this kidney also appears slightly smaller in size than the right. There is evidence of excretory function bilaterally by 3 minutes postinjection. There are bladder is well visualized by 10 minutes. At 30 minutes post injection there is good accumulation of activity in the urinary bladder and only a small amount of retained activity in the left renal pelvis. The right renal pelvis shows moderate to marked retention and there is mild pyelocaliectasis. Following Lasix administration, there is prompt washout from both renal collecting systems. At the end of the study there is almost no retained activity in either renal collecting system and a full urinary bladder is visualized. The T-1/2 washout times following Lasix administration are: Left 5 minutes and right 9 minutes. The relative function of the two kidneys based on the 2-3 minute images are: Left 43% and right 57%. IMPRESSION: LEFT KIDNEY: Normal perfusion and function. No hydronephrosis or outflow obstruction. The slightly diminished function of this kidney compared to the right side as quantitated above is likely due to its slightly smaller size. RIGHT KIDNEY: Normal perfusion and function. Mild hydronephrosis is present but there is no significant outflow obstruction. Assessment & Plan Assessment & Plan (1) Hydronephrosis: Code(s): N13.30 - Unspecified hydronephrosis Category: Medical (2) Recurrent UTI: Code(s): N39.0 - Urinary tract infection, site not specified Category: Medical (3) Kidney stone: Code(s): N20.0 - Calculus of kidney Category: Medical Plan In office urinalysis results reviewed with the patient today; as noted above. Recent Lasix renogram results reviewed with the patient today; as noted above. Patient denies any urological issues or concerns at this time. BUN and creatinine results reviewed and trended with the patient today; as noted above. Discussed, educated, and instructed on the importance of drinking adequate amount of water daily in relation to nephrolithiasis as well as overall health and well-being. Continue to follow-up with nephrology as planned. Will obtain renal ultrasound in 6 months. Follow-up in 6 months months with imaging to be completed prior; or sooner with any issues, concerns, and or questions. Orders: Orders AMB Urinalysis Automated 11/06/24 Z13.9 - Encounter for screening, unspecified US renal BI 6 Months N20.0 - Calculus of kidney Patient Instructions: The patient had an opportunity to ask questions regarding the treatment plan. All questions were answered. Physical exam, labs, and imaging were discussed and reviewed in detail. As well as risks, benefits, and discussion of treatment choices. No major barriers to understanding were identified. The patient expressed understanding and agreement with the above treatment plan. The patient was made aware they should contact our office by phone for worsening of their current condition, the appearance of new symptoms, or with any questions or concerns. Compliance is encouraged with any medications and follow up testing that is ordered. It is a privilege to be allowed the opportunity to participate in? your urological care.? Again, if you have any questions or concerns If you have any questions or concerns please do not hesitate to contact me. The office is [phone]. This note is constructed using voice recognition software. While every effort has been made to ensure accuracy chamber worker errors may have been included. Yours sincerely, CHATO Contreras Coding Level of Care Code Est Pt Level 3 (34314) Complex EM visit Add On G2211 Diagnoses Hydronephrosis N13.30 Recurrent UTI N39.0 Kidney stone N20.0
== END 2024-11-06 10:06 | disposition home or self-care (01) ==
PROVIDERS: PCP Internal Medicine Geriatric Medicine; Visit Provider Nurse Practitioner Family
DX: N13.30 Unspecified hydronephrosis (principal); N39.0 Urinary tract infection, site not specified; N20.0 Calculus of kidney
CPT/HCPCS: 99213; G2211

== ENCOUNTER → 2024-11-06 09:30 | Outpatient (BNVA) | payer OTHER, SELFPAY | PROVIDERS: PCP Internal Medicine Geriatric Medicine; Visit Provider Nurse Practitioner Family | DX: N13.30 Unspecified hydronephrosis (principal); N39.0 Urinary tract infection, site not specified | CPT/HCPCS: 81003; 99212 ==

== ENCOUNTER 2024-12-10 11:51 | Outpatient (AMB) | payer OTHER, SELFPAY ==
[2024-12-10 11:55] VITALS: BP 118/72; PULSE 72; BMI 26.4
--- NOTE | 2024-12-10 11:55 | A.OFFVIS_ITS ---
Vital Signs 12/10/24 11:55 Height 5 ft 1 in Weight 140 lb BMI 26.4 BP 118/72 Blood Pressure Location Rt brachial Position Sitting Pulse 72 Intake Visit Reasons: umbilical pain where hernia surgery done Intake Note: Patient scheduled today's appointment due to concerns with hernia site. Patient c/o: on and off abdominal sharp pain. Umbilicus feels tender when pressing on it. Battery Mechanic Required: Yes Battery Mechanic Name: Maribell INGRAM Accompanied by: Self / Same As Patient Allergies ceftriaxone Allergy (Severe, Verified 12/10/24 11:58) Anaphylaxis Iodinated Contrast Media [IV Contrast Dye] Allergy (Severe, Verified 12/10/24 11:58) Anaphylaxis magnesium hydroxide [From Milk of Magnesia] Allergy (Intermediate, Verified 12/10/24 11:58) Rash HPI Comments Details: Patient whom I know from the past, presents with nonspecific periumbilical discomfort. She has had a prior sigmoid resection as well as ventral hernia repair infraumbilically. She had a laparoscopic oophorectomy and she points at a port site just above the umbilicus as the main focus of her symptoms. With ex tremes of motion, her symptoms were aggravated. She otherwise is tolerating a diet. He is having regular bowel habits. No other GI issues or complaints. Chart was reviewed and patient evaluate [facility] Medical History Hemorrhoids with complication Endometrial hyperplasia Heartburn GERD (gastroesophageal reflux disease) Skin lesion of back Kidney stone Vitamin D deficiency Hypothyroidism Surgical History Hx of ventral hernia repair (05/31/24) Hx of unilateral oophorectomy History of surgery Tubal ligation status Hx of colonoscopy Hx of esophagogastroduodenoscopy Family History Father Hypertension Respiratory failure Mother Pancreatic cancer Social History Household Members: Spouse Housing: Apartment Are you a primary manager care to a significant other at home: No Do you presently have visiting nurse or other home services: No Alcohol intake: never Patient Tobacco Use Status: Never used Tobacco Second Hand Smoke Exposure: No service: No Current occupational status: employed Current occupation: [employer] Sexual orientation: Straight/Heterosexual Gender identity: Female Female Reproductive History Menstrual Age of Menarche: 16 Physical Exam Vital Signs: Last Vital Signs Pulse 72 12/10/24 11:55 BP 118/72 12/10/24 11:55 BMI result Body Mass Index 26.4 GI Other: Patient was examined both supine and standing with Valsalva. Infraumbilical incision well healed no evidence of any recurrence. Abdomen otherwise moderately corpulent, soft, benign. Patient has tenderness just above the umbilicus at a port site but because of the patient's size, difficulty in discerning whether there was an incisional hernia at this port site or not was challenging. Assessment & Plan Assessment & Plan (1) Abdominal wall pain: Code(s): R10.9 - Unspecified abdominal pain Category: Surgical Plan: Current recommendation is to arrange for an ultrasound of this area and direct further therapy based on these results. Patient understands and arrangements were made for this. She will see me after the study. All questions answered Orders: Orders US abdomen limited Today R10.9 - Unspecified abdominal pain Coding Level of Care Code Est Pt Level 4 (10148) Diagnoses Abdominal wall pain R10.9
--- OUTSIDE RECORDS SUMMARY | 2024-12-10 16:40 | XMS_ITS | Encounter Summary ---
Author Organization [employer] Address [address] [place] [address] Care Team Providers Care Anatomy Professor Name Role Phone Name, Cedric NICK Primary Care Provider [phone] Encounter Details Date Type Department Care Team (Late st Contact Info) Description 04/25/2023 Abstract [facility] [address] [place] [id number] Name, MD Cedric [address] [place] [phone] Social History Tobacco Use Types Packs/Day Years Used Date Smoking Tobacco: Never Smokeless Tobacco: Never Depression Answer Date Recorded Patient Health Questionnaire-9 Score 0 11/19/2022 Depression Answer Date Recorded Patient Health Questionnaire-2 Score 0 11/19/2022 Comments Unknown Sex and Gender Information Value Date Recorded Sex Assigned at Female 09/13/2022 10:29 AM EDT Legal Sex Female 10:29 AM EDT Gender Identity Female 09/13/2022 10:29 AM EDT Sexual Orientation Straight 09/13/2022 10 :29 AM EDT COVID-19 Exposure Response Date Recorded In the last 10 days, have yo u been in contact with someone who was confirmed or suspected to have Coronavirus/COVID-19? No / Unsure 04/08/2023 3:15 PM EDT documented as of this encounter Plan of Treatment Upcoming Encounters Date Type Department Care Team (Late st Contact Info) Description 12/14/2024 9:00 AM EST Office Visit [facility] [address] [place] [phone] Alonso Robles MD [address] [place] [address] 02/01/2025 10:00 AM EDT Office Visit [facility] [address] [place] [address] Iza Dial [address] [place] [address] 02/05/2025 10:45 AM EDT Office Visit [facility] [address] [place] [address] Name, MD Cedric [address] [place] [address] documented as of this encounter Procedures Procedure Name Priority Date/Time Associated Diagnosis Comments PAP/HPV Routine 12/24/2019 COLONOSCOPY Routine 05/25/2018 3:17 PM EDT documented in this encounter Results * Pap Smear (12/24/2019) Pap Negative for intraephithelial lesion or malignancy Negative for intraephithelial lesion or malignancy, Other HPV Undetected 12/24/2019 Historical Provider HEALTH MAINTENANCE Final Result * Colonoscopy (05/25/2018 3:17 PM EDT) Colonoscopy Normal Normal Narrative Annette Duenas - 05/25/2018 3:17 PM EDT Recommended 5 year follow up ( [facility]) us Historical Provider HEALTH MAINTENANCE Final Result documented in this encounter Visit Diagnoses Not on filedocumented in this encounter Additional Health Concerns Assessment Noted Time PHQ-9 Depression Total Score: 0 11/19/19 23 1:50 PM EST documented as of this encounter Care Teams Anatomy Professor Relationship Specialty Start Date End Date Name, MD Cedric [address] [place] [id number] PCP - General Family Medicine 04/06/16 documented as of this encounter
--- OUTSIDE RECORDS SUMMARY | 2024-12-10 16:40 | XMS_ITS | Clinical Summary ---
Author Organization [employer] Address [address] [facility] [address] [place] [address] Care Team Providers Care Gold Buyer Name Role Phone Name, Cedric NICK Primary Care Provider [phone] Allergies Active Allergy Reactions Criticality Noted Date Comments Ceftriaxone Anaphylaxis High 09/23/2023 Iodinated Contrast Media Shortness of breath,Anaphylaxis High 01/11/2023 Lactose Diarrhea Low 11/18/2022 Whole milk Magnesium Hydroxide Rash High 05/25/2024 Medications Bisacodyl EC 5 MG EC tablet TAKE 2 TABLETS BY MOUTH AT BEDTIME 04/20/20 22 Active Vitamin D High Potency 25 MCG (1000 UT) capsule TAKE 1 CAPSULE BY MOUTH ONCE DAILY 08/26/20 22 Active lisinopril 10 MG tablet TAKE 1 TABLET BY MOUTH ONCE DAILY 08/26/20 22 Active docusate sodium (Colace) 100 MG capsule TAKE 1 CAPSULE BY MOUTH AT BEDTIME 12/14/19 23 Active Procto-Med HC 2.5 % rectal creamIndications:D iverticulitis of large intestine without perforation or abscess without bleeding APPLY RECTALLY 2-4 TIMES PER DAY NEEDED FOR HEMORRHOIDS 30 g 2 01/07/20 23 Active polyethylene glycol, PEG, 3350 (Glycolax) 17 GM/SCOOP powder MIX 238 GRAM IN WATER AND TAKE ONCE DIRECTED BY [facility] GI DEPT 05/31/20 23 Active Acetaminophen Extra Strength 500 MG tabletIndications: Acquired hypothyroidism TAKE 2 TABLETS BY MOUTH EVERY 8 HOURS NEEDED fevor OR FOR PAIN 90 tablet 07/04/20 24 Active levothyroxine (Synthroid, Levoxyl) 75 MCG tabletIndications: Acquired hypothyroidism Take 1 tablet (75 mcg) by mouth See administration instructions. Use Tuesday to Tuesday and skip weekends 07/05/20 Active omeprazole (PriLOSEC) [address] capsule Take 1 capsule by mouth Once per day. 02/20/20 Active Active Problems Problem Noted Date Diagnosed Date Dental caries 08/02/2024 Dental calculus 08/02/2024 Missing teeth, acquired 08/02/2024 Generalized gingival recession 08/02/2024 Excessive attrition of teeth, limited to enamel 08/02/2024 Dental root caries 08/02/2024 Endometrial polyp 07/27/2024 Postop check 07/27/2024 Status post repair of ventral hernia 07/27/2024 Uterine myoma 07/27/2024 History of hernia repair 07/05/2024 Adnexal fullness 06/27/2024 Anxiety 06/27/2024 Chronic idiopathic constipation 06/27/2024 Contusion of lower limb, left 06/27/2024 Diverticulitis 06/27/2024 Dyspepsia 06/27/2024 Dysuria 06/27/2024 Endometrial hyperplasia 06/27/2024 Headache 06/27/2024 Hemorrhoids with complication 06/27/2024 Hydronephrosis 06/27/2024 Inhalation of smoke 06/27/2024 Metrorrhagia 06/27/2024 Microscopic hematuria 06/27/2024 Recurrent UTI 06/27/2024 S/P colon resection 06/27/2024 Seroma due to trauma 06/27/2024 Stenosis of ureteropelvic junction (UPJ) 024 Ureteral stricture, right 06/27/2024 Ventral hernia 06/27/2024 Well woman exam 06/27/2024 Vulvovaginitis 02/20/2024 History of open sigmoidectomy 09/12/2023 Kidney stone 01/09/2023 Complex cyst of left ovary 11/18/2022 Diverticulitis large intestine 11/18/2022 Overview (06/27/2024): Recurrent. Patient underwent exploratory laparotomy, sigmoid resection, primary colorectal EEA anastomosis, and rigid proctoscopy on 08/11/23. Proteinuria 11/18/2022 GERD (gastroesophageal reflux disease) 3 Tubular adenoma 07/25/2018 Uterine leiomyoma 06/12/2018 Vaginal discharge 06/12/2018 Diffuse goiter 01/04/2017 Vitamin D deficiency 01/04/2017 Seasonal allergic rhinitis 09/21/2016 Irregular periods 09/21/2016 Hypothyroidism 11/24/2015 Acute hip pain 11/24/2015 Acquired hypothyroidism 11/24/2015 Resolved Problems Problem Noted Date Diagnosed Date Resolved Date Mass of uterine adnexa 11/18/202209/23 Chronic fatigue syndrome 01/04/201708/2023 Muscle atrophy 09/21/2016 05/09/2023 Encounters Date Type Department Care Team Description 10/03/2024 10:30 AM EST Office Visit [facility] [address] [place] [address] [phone] Name, MD Cedric Acquired hypothyroidism (Primary Dx); Persistent proteinuria; Healthcare maintenance 10/01/2024 Telephone [facility] [address] [place] [address] Jen Muñoz MA Chart Prep 09/18/2024 Orders Only [facility] External Provider, [facility] from Last 3 Months Immunizations Name Administration Dates Next Due HepB-CpG 03/29/2023,01/24/2023 Influenza injectable quadriv alent IIV4 with preservative 08/09/2018,08/31/2017,09/21/2016,2015 Influenza injectable quadriv alent preservative free 09/11/2021,09/16/2020 Moderna Covid-19 Vaccine 12+ 04/21/2021 Tdap 05/31/2017 Zoster, Recombinant 01/24/2023,11/22/2022 Social History Tobacco Use Types Packs/Day Years Used Date Smoking Tobacco: Never Smokeless Tobacco: Never Tobacco Cessation:Counseling Given: Not Answered Alcohol Use Standard Drinks/Week Comments Never 0 (1 standard drink = 0.6 oz pur e alcohol) Depression Answer Date Recorded Patient Health Questionnaire-9 Score 0 02/20/2024 Patient Health Questionnaire-9 Score 0 02/20/2024 Last PHQ-9: Questionnaire Data Not on file 0 02/20/2024 Housing Stability Answer Date Recorded What is your housing situation today? I have lindy aburto 02/20/[address] you li ve. Do you have problems with any of the following? None of the above 02/20/2024 Food Insecurity Answer Date Recorded Within the past 12 months, y ou worried that your food would run out before you got money to buy more: Never True 02/20/2024 Within the past 12 months,th e food you bought just didn't last and you didn't have enough money to get more: Never True 06/2024 Transportation Answer Date Recorded In the past 12 months, has l ack of transportation kept you from medical appts, meetings, work or from getting things needed for daily living? No 02/20/2024 Utilities Answer Date Recorded In the past 12 months, has t he electric, gas, oil or water company threatened to shut off services in your home? No 02/20/2024 Depression Answer Date Recorded Patient Health Questionnaire-2 Score 0 02/20/2024 Comments Unknown Sex and Gender Information Value Date Recorded Sex Assigned at Female 09/13/2022 10:29 AM EDT Legal Sex Female 10:29 AM EDT Gender Identity Female 09/13/2022 10:29 AM EDT Sexual Orientation Straight 09/13/2022 10 :29 AM EDT Last Filed Vital Signs Vital Sign Reading Time Taken Comments Blood Pressure 131/84 10/03/2024 10:23 AM EST Pulse 81 10/03/2024 10:23 AM EST Temperature 36.1 ??C (97 ??F) 10/03/2024 10:23 AM EST Respiratory Rate 12 10/03/2024 10:23 AM EST Oxygen Saturation 98% 10/03/2024 10:23 AM EST Inhaled Oxygen Concentration - - Weight 63.6 kg (140 lb 3.2 oz) 10/03/2024 10:23 AM EST Height 154.9 cm (5' 1 ) 10/03/2024 10:23 AM EST Body Mass Index 26.49 10/03/2024 10:23 AM EST Plan of Treatment Upcoming Encounters Date Type Department Care Team (Late st Contact Info) Description 12/14/2024 9:00 AM EST Office Visit [facility] [address] [place] [phone] Alonso Robles MD [address] [place] [address] 02/01/2025 10:00 AM EDT Office Visit [facility] [address] [place], [place] [phone] Iza Dial [address] [place] [address] 02/05/2025 10:45 AM EDT Office Visit [facility] [address] [place] [address] Name, MD Cedric [address] [place] [address] Health Maintenance Due Date Last Done Comments CT Colonography 1968 FIT DNA/Cologuard 1968 FIT 1968 FOBT 1970 Sigmoidoscopy 1968 Alcohol/Substance Use Screening 1980 COVID-19 Vaccine ( season) 2024 04/21/2021, 03/24/2021 Influenza Vaccine (#1) 2024 , 09/16/2020, 08/09/2018, Additional history exists Cervical Cancer Screening 12/24/2024 HPV/Cotest 12/24/2024 12/24/2019 Pap Smear 12/24/2024 12/24/2019 Dental Oral Exam 01/31/2025 08/02/2024, , 12/18/2019, Additional history exists Dental Prophylaxis 01/31/2025 08/02/2024, 04/01/2022 Depression Screening 02/19/2025 02/20/2024, 02/20/20 24 SDOH Screening 02/19/2025 02/20/2024 Dental X-Ray: Full Mouth 04/02/2025 04/01/2022, 11/2015 Dental X-Ray: Bitewings 08/03/2025 08/02/20 24, 04/01/2022, 12/18/2019, Additional history exists Tobacco Screening 08/06/2025 08/06/2024 Mammogram 05/25/2026 05/25/2024, 05/14, 04/19/2023, Additional history exists DTaP/Tdap/Td Vaccines (2 - Td or Tdap) 05/31/2027 05/31/2017 Colonoscopy 07/21/2028 07/21/2023, 05/25/2018 Colorectal Cancer Screening 07/21/2028 RSV Patients and Patients Aged 60 years or older (1 - 1-dose 75+ series) 2043 Zoster Vaccines Completed 01/24/2023, 11/22/2022 Hepatitis B Vaccines Completed 03/29/2023, 01/25/20 HIV Screening Completed 10/03/2024 Hepatitis C Screening Completed 10/03/2024 HIB Vaccines Aged Out No longer eligi ble based on patient's age to complete this topic HPV Vaccines Aged Out No longer eligi ble based on patient's age to complete this topic Hepatitis A Vaccines Aged Out No long er eligible based on patient's age to complete this topic IPV Vaccines Aged Out No longer eligi ble based on patient's age to complete this topic Meningococcal Vaccine Aged Out No maye kun eligible based on patient's age to complete this topic Pneumococcal Vaccine: Pediatrics (0 to 5 Years) and At-Risk Patients (6 to 64 Years) Aged Out No longer eligible based on patient's age to complete this topic RSV under 20 months Aged Out No longe r eligible based on patient's age to complete this topic Rotavirus Vaccines Aged Out No longer eligible based on patient's age to complete this topic Procedures Procedure Name Priority Date/Time Associated Diagnosis Comments ALBUMIN, RANDOM URINE W/CREATININE Routine 10/03/2024 11:20 AM EST Persistent proteinuria BASIC METABOLIC PANEL Routine 10/03/2024 11:20 AM EST Persistent proteinuria HEPATITIS C AB W/REFL TO HCV RNA, QN, PCR Routine 10/03/2024 11:20 AM EST Healthcare maintenance HIV 1/2 ANTIGEN/ANTIBODY, FOURTH GENERATION W/RFL Routine 10/03/2024 11:20 AM EST Healthcare maintenance TSH W/REFLEX TO FT4 Routine 10/03/2024 1 1:20 AM EST Acquired hypothyroidism NM KIDNEY FLOW/FUNCTION W PHARMACOLOGICAL INTERVENTION Routine 09/18/2024 12:15 PM EST PROPHYLAXIS - ADULT Routine 08/02/2024 1 0:00 AM EDT Dental calculus BITEWINGS - 2 RADIOGRAPHIC IMAGES Routine 08/02/2024 10:00 AM EDT Dental caries Dental calculus Missing teeth, acquired Excessive attrition of teeth, limited to enamel Generalized gingival recession PERIODIC ORAL EVALUATION - ESTABLISHED PATIENT Routine 08/02/2024 10:00 AM EDT BI MAMMOGRAM SCREENING TOMOSYNTHESIS BILATERAL Routine 05/25/2024 12:45 PM EDT HM COLONOSCOPY Routine 07/21/2023 DIAGNOSTIC - DIAGNOSTIC IMAGING - INTRAORAL - COMPREHENSIVE SERIES OF RADIOGRAPHIC IMAGES Routine 04/01/2022 12:00 AM EDT HM PAP/HPV Routine 12/24/2019 from Last 3 Months or Most Recently Relevant to Health Maintenance Results * TSH W/Reflex to FT4 (10/03/2024 11:20 AM EST) TSH reflex Free T4 2.86 0.32 - 4.0 uIU/mL [facility] Blood Venous blood specimen / Unknown 10/03/2024 11:20 AM EST 10/03/2024 1:16 PM EST us Cedric Name LAB BLOOD ORDERABLES Final Resul t [facility] [address] [place] [phone] * (ABNORMAL) Albumin, Random Urine W/Creatinine (10/03/2024 11:20 AM EST) Creatinine, Urine 124.09 mg/dL [facility] Microalbumin Urine 669.0 mg/L [facility] Microalbum Creatinine Ratio Ur 539.1(H) <30 ug/mg cr [facility] Comment:Albumin/Creatinine R atio Reference Ranges: Normal: < 30 ug/mg creatinine Microalbuminuria: 30 - 300 ug/mg creatinineClinical Albuminuria: > 300 ug/mg creatinine Urine (Urine, Random) 10/03/2024 11:20 AM EST 10/03/2024 1:06 PM EST us Cedric Liao MD LAB URINE ORDERABLES Final Resul t Performing Organization Address [facility] Co de Phone Number [facility] [address] [place] [phone] * Hepatitis C Antibody with Reflex to HCV, RNA, Quantitative, Real-Time PCR (10/03/2024 11:20 AM EST) Hepatitis C Antibody Nonreactive Nonreactive [facility] Comment:Antibodies to HCV no t detected; does not exclude early acuteHCV infection. Blood Venous blood specimen / Unknown 10/03/2024 11:20 AM EST 10/03/2024 1:16 PM EST us Cedric Liao MD LAB BLOOD ORDERABLES Final Resul t Performing Organization Address [facility] Co de Phone Number [facility] [address] [place] [phone] * HIV-1/2 Antigen and Antibodies, Fourth Generation, with Reflexes (10/03/2024 11:20 AM EST) HIV AB/AG Nonreactive Nonreactive [facility] Comment:HIV-1 p24 Ag and/or HIV-1/HIV-2 Ab not detected.A test result that is nonreactive does not exclude thepossibility of exposure to or infection with HIV-1 and/orHIV-2. Nonreactive results in this assay for individualswith prior exposure to HIV-1 and/or HIV-2 may be due toantigen and antibody levels that are below the limit ofdetection of this assay.[employer] HIV Ag/Ab Combo assay result andsupplemental assay results should be interpreted inconjunction with the patient's clinical presentation,history and other laboratory results. If the results areinconsistent with clinical evidence, additional testing issuggested to confirm the result. Blood Venous blood specimen / Unknown 10/03/2024 11:20 AM EST 10/03/2024 1:16 PM EST us Cedric Liao MD LAB BLOOD ORDERABLES Final Resul t Performing Organization Address [facility] Co de Phone Number [facility] [address] [place] [phone] * Basic Metabolic Panel (10/03/2024 11:20 AM EST) Sodium 140 135 - 145 mmol/L [facility] Potassium 3.7 3.3 - 5.1 mmol/L [facility] Chloride 104 96 - 108 mmol/L [facility] Carbon Dioxide 26 22 - 29 mmol/L [facility] Anion Gap 14 12 - 20 [facility] Urea Nitrogen (BUN) 11 9 - 16 mg/dL [facility] Creatinine, Serum 0.79 0.5 - 1.4 mg/dL [facility] Estimated Glomerular Filt Rate >60 [facility] Comment:Chronic Kidney Disea se: Estimated GFR < 60 mL/min/1.19u5Hywgqg Kidney Disease: Estimated GFR < 15 mL/min/1.73m2 Glucose 104 60 - 115 mg/dL [facility] Calcium 9.7 8.4 - 10.2 mg/dL [facility] Blood Venous blood specimen / Unknown 10/03/2024 11:20 AM EST 10/03/2024 1:16 PM EST us Cedric Liao MD LAB BLOOD ORDERABLES Final Resul t Performing Organization Address [facility] Co de Phone Number [facility] [address] [place] [phone] * NM Kidney Flow/Function w/ Pharmacological Intervention (09/18/2024 12:15 PM EST) Anatomical Region Laterality Modality Body Nuclear Medicine 09/18/2024 12:1 5 PM EST Narrative 10/24/2024 3:23 PM EST ? [facility] ?[address] ?[place] [address] ?Nuclear Medicine Report ? Signed ? Patient: Ruelas Ruelas,Creheidyia A ?MR ?? #: [id number] ? : 1970 ?Acct:[id number] ? Age/Sex: 54 / F ?ADM Date: 09/18/24 ? Loc: HO.NUCMED ? Attending Dr: Fatimah REIS ? Ordering Physician: Fatimah Claudio ?? Date of Service: 09/18/24 ?? Procedure(s): NM renal flow w pharm int ?? Accession Number(s): [id number] ? cc: Fatimah Claudio; Name,Cedric NICK ? EXAMINATION: ?? RENAL DYNAMIC IMAGING STUDY WITH LASIX ? CLINICAL INFORMATION: ?? Hydronephrosis. ? COMPARISON: ?? The previous study dated 04/15/2020 is available for comparison. CT scan ?? of the abdomen and pelvis dated 03/19/2024 and renal ultrasound dated ?? 03/14/2024 are available for comparison. ? TECHNIQUE: ?? Serial gamma scintillation camera images were obtained over the ?? posterior trunk during the initial transit and subsequent distribution ?? of a bolus intravenous injection of ??10.0 mCi of Tc-99m DTPA. ??At 30 ?? minutes later, 33 mg of Lasix was administered intravenously and an ?? additional 19 minutes of images obtained. The study was terminated ?? earlier than the usual 30 minutes post Lasix administration because of ?? the patient's urgency to void. ? FINDINGS: ?? Initial rapid sequence images show prompt and bilaterally symmetrical ?? flow to the kidneys. ? Subsequent sequential static images obtained up to 30 minutes show good ?? concentration bilaterally. The activity in the left kidney is slightly ?? diminished compared to the right and this kidney also appears slightly ?? smaller in size than the right. There is evidence of excretory function ?? bilaterally by 3 minutes postinjection. There are bladder is well ?? visualized by 10 minutes. At 30 minutes post injection there is good ?? accumulation of activity in the urinary bladder and only a small amount ?? of retained activity in the left renal pelvis. The right renal pelvis ?? shows moderate to marked retention and there is mild pyelocaliectasis. ? Following Lasix administration, there is prompt washout from both renal ?? collecting systems. At the end of the study there is almost no retained ?? activity in either renal collecting system and a full urinary bladder ?? is visualized. ? The T-1/2 washout times following Lasix administration are: ?? Left 5 minutes and right 9 minutes. ? The relative function of the two kidneys based on the 2-3 minute images ?? are: ?? Left 43% and right 57%. ? NM/NM renal flow w pharm int ?? IMPRESSION: ?? LEFT KIDNEY: Normal perfusion and function. No hydronephrosis or ?? outflow obstruction. The slightly diminished function of this kidney ?? compared to the right side as quantitated above is likely due to its ?? slightly smaller size. ? RIGHT KIDNEY: Normal perfusion and function. Mild hydronephrosis is ?? present but there is no significant outflow obstruction. ? Electronically signed by: ??Jose Green MD ??10/24/2024 03:21 PM EST ? Dictated By: ?Jose Green MD ? Signed By: ?<Electronically signed by Jose Green MD in OV> ? 10/24/24 1521 ? DD/ 1215 ? TD/TT: 09/18/24 1215 ? [employer]: RR ? Procedure Note Asha, Molly - 10/24/2024 [place] [phone] Nuclear Medicine Report Signed Patient: Maryann Tan AMR #: [id number] : 1970Acct:[id number] Age/Sex: 54 / FADM Date: 09/18/24 Loc: [facility] Attending Dr: Fatimah REIS Ordering Physician: Fatimah Claudio Date of Service: 09/18/24 Procedure(s): NM renal flow w pharm int Accession Number(s): [id number] cc: Fatimah Claduio; Name,Cedric NICK EXAMINATION: RENAL DYNAMIC IMAGING STUDY WITH LASIX CLINICAL INFORMATION: Hydronephrosis. COMPARISON: The previous study dated 04/15/2020 is available for comparison. CT scan of the abdomen and pelvis dated 03/19/2024 and renal ultrasound dated 03/14/2024 are available for comparison. TECHNIQUE: Serial gamma scintillation camera images were obtained over the posterior trunk during the initial transit and subsequent distribution of a bolus intravenous injection of 10.0 mCi of Tc-99m DTPA. At 30 minutes later, 33 mg of Lasix was administered intravenously and an additional 19 minutes of images obtained. The study was terminated earlier than the usual 30 minutes post Lasix administration because of the patient's urgency to void. FINDINGS: Initial rapid sequence images show prompt and bilaterally symmetrical flow to the kidneys. Subsequent sequential static images obtained up to 30 minutes show good concentration bilaterally. The activity in the left kidney is slightly diminished compared to the right and this kidney also appears slightly smaller in size than the right. There is evidence of excretory function bilaterally by 3 minutes postinjection. There are bladder is well visualized by 10 minutes. At 30 minutes post injection there is good accumulation of activity in the urinary bladder and only a small amount of retained activity in the left renal pelvis. The right renal pelvis shows moderate to marked retention and there is mild pyelocaliectasis. Following Lasix administration, there is prompt washout from both renal collecting systems. At the end of the study there is almost no retained activity in either renal collecting system and a full urinary bladder is visualized. The T-1/2 washout times following Lasix administration are: Left 5 minutes and right 9 minutes. The relative function of the two kidneys based on the 2-3 minute images are: Left 43% and right 57%. NM/NM renal flow w pharm int IMPRESSION: LEFT KIDNEY: Normal perfusion and function. No hydronephrosis or outflow obstruction. The slightly diminished function of this kidney compared to the right side as quantitated above is likely due to its slightly smaller size. RIGHT KIDNEY: Normal perfusion and function. Mild hydronephrosis is present but there is no significant outflow obstruction. Electronically signed by: Jose Green MD 10/24/2024 03:21 PM [facility] Dictated By: Jose Green MD Signed By: <Electronically signed by Jose Green MD inOV> 10/24/24 1521 DD/ 1215 TD/TT: 09/18/24 1215 [employer]: RR us [facility] External Provider IMG NM PROCEDURES Final Result * BI Mammogram Screening Tomosynthesis Bilateral (05/25/2024 12:45 PM EDT) Anatomical Region Laterality Modality Breast Bilateral Mammography 05/25/2024 12:4 5 PM EDT Narrative 06/19/2024 9:18 PM EDT ? [facility] ? [address] ?[place], [place] [address] ? Mammography Report ? Signed ? Patient: Maryann Tan ?MR ?? #: [id number] ? : 1970 ?Acct:[id number] ? Age/Sex: 54 / F ?ADM Date: 05/25/24 ? Loc: HO.MAMMO ? Attending Dr: Cedric Name MD ? Ordering Physician: Name,Cedric MD ?Results: 0Incomplet ?? e: Needs Additional Imaging Evaluation ? Date of Service: 05/25/24 ?Follow Up: Additional Imagi ?? ng ? Procedure(s): MM tomosynthesis screening BI ?? Accession Number(s): [id number] ? cc: Name,Cedric NICK ? EXAMINATION: ?? MM SCREENING DIGITAL BREAST TOMOSYNTHESIS, BILATERAL ? CLINICAL INFORMATION: ? Screening. Asymptomatic. ? COMPARISON: ?? Mammography: This study is compared with prior exams dating back to ?? 2019. ? TECHNIQUE: ?? Digital breast tomosynthesis is performed in both the craniocaudal and ?? mediolateral oblique views along with computer-aided detection (CAD). ?? Synthesized 2D images are generated from the tomosynthesis. ? FINDINGS: ?? There are scattered areas of fibroglandular density (ACR BI-RADS breast ?? composition Category b). ? There are loosely grouped calcifications approximately 14 mm apart in ?? the upper outer quadrant of the right breast. In close proximity, there ?? is a smaller area of focal asymmetry. Magnification imaging of the ?? calcifications is advised. Additional mammographic and targeted ?? sonographic imaging of the focal asymmetry is advised. ? In the left breast, there are no significant masses, abnormal ?? calcifications, or other abnormalities. ? MM/MM tomosynthesis screening BI ?? IMPRESSION: ?? Calcifications and focal asymmetry of the upper outer quadrant of the ?? right breast warrant additional mammographic imaging with ?? magnification, spot compression and targeted sonography. ? No mammographic signs of malignancy left breast. ? ASSESSMENT: ? BI-RADS BI-RADS 0 - Incomplete: Needs additional Imaging. ? RECOMMENDATION: ?? 1. Additional views of the right breast. ? 2. Targeted ultrasound of the upper outer quadrant of the right breast ?? is indicated. ? 3. Radiology department staff will contact the patient for additional ?? imaging. ? Additional Imaging required ? This examination should not preclude the clinical evaluation of a ?? suspicious palpable abnormality. ? This patient's information was entered into a reminder system with a ?? target due date for their next mammogram. ? Dictated By: ?Melissa Welch MD ? Signed By: ?<Electronically signed by Melissa Welch MD in OV> ? 06/19/242101 ? DD/ 1245 ? TD/TT: ? [employer]: ? Procedure Note Asha, Image - 06/19/2024 [facility] [address] [place] [address] [place] [address] Mammography Report Signed Patient: Maryann Tan AMR #: [id number] : 1970Acct:[id number] Age/Sex: 54 / FADM Date: 05/25/24 Loc: HO.MAMMO Attending Dr: Cedric Liao MD Ordering Physician: Cedric Liao MDResults: 0Incomplet e: Needs Additional Imaging Evaluation Date of Service: 05/25/24Follow Up: Additional Imagi ng Procedure(s): MM tomosynthesis screening BI Accession Number(s): [id number] cc: Name,Cedric NICK EXAMINATION: MM SCREENING DIGITAL BREAST TOMOSYNTHESIS, BILATERAL CLINICAL INFORMATION: Screening. Asymptomatic. COMPARISON: Mammography: This study is compared with prior exams dating back to 2019. TECHNIQUE: Digital breast tomosynthesis is performed in both the craniocaudal and mediolateral oblique views along with computer-aided detection (CAD). Synthesized 2D images are generated from the tomosynthesis. FINDINGS: There are scattered areas of fibroglandular density (ACR BI-RADS breast composition Category b). There are loosely grouped calcifications approximately 14 mm apart in the upper outer quadrant of the right breast. In close proximity, there is a smaller area of focal asymmetry. Magnification imaging of the calcifications is advised. Additional mammographic and targeted sonographic imaging of the focal asymmetry is advised. In the left breast, there are no significant masses, abnormal calcifications, or other abnormalities. MM/MM tomosynthesis screening BI IMPRESSION: Calcifications and focal asymmetry of the upper outer quadrant of the right breast warrant additional mammographic imaging with magnification, spot compression and targeted sonography. No mammographic signs of malignancy left breast. ASSESSMENT: BI-RADS BI-RADS 0 - Incomplete: Needs additional Imaging. RECOMMENDATION: 1. Additional views of the right breast. 2. Targeted ultrasound of the upper outer quadrant of the right breast is indicated. 3. Radiology department staff will contact the patient for additional imaging. Additional Imaging required This examination should not preclude the clinical evaluation of a suspicious palpable abnormality. This patient's information was entered into a reminder system with a target due date for their next mammogram. Dictated By: Melissa Welch MD Signed By: <Electronically signed by Melissa Welch MD in OV> 06/19/24 2102 DD/ 1245 TD/TT: Hand Molder And Caster: Cedric Name IMG BI PROCEDURES Edited Result - Final * (ABNORMAL) Colonoscopy (07/21/2023) Colonoscopy Abnormal(A ) Normal Cedric Name HEALTH MAINTENANCE Final Result * Pap Smear (12/24/2019) Pap Negative for intraephithelial lesion or malignancy Negative for intraephithelial lesion or malignancy, Other HPV Undetected 12/24/2019 Historical Provider HEALTH MAINTENANCE Final Result from Last 3 Months or Most Recently Relevant to Health Maintenance Insurance [employer] [address] [place] [id number] [facility] [address] [place] [id number] DENTAL - HSN PARTIAL (MEDICAID) * Guarantor: Maryann Tan Account Type Relation to Patient Date of Phone Billing Address Personal/Family Self [address] [place] [address] * Guarantor: Maryann Tan Account Type Relation to Patient Date of Phone Billing Address Personal/Family Self [address] [place] [address] * Guarantor: Maryann Tan Account Type Relation to Patient Date of Phone Billing Address Personal/Family Self [address] [employer] [address] [place] [address] Care Teams Gold Buyer Relationship Specialty Start Date End Date Name, MD Cedric [address] [place] [address] PCP - General Family Medicine 04/06/16
--- OUTSIDE RECORDS SUMMARY | 2024-12-10 16:41 | XMS_ITS | Encounter Summary ---
Author Organization [employer] Address [address] [facility] 7t [place] [address] Care Team Providers Care Trading Floor Operator Name Role Phone Cedric Liao MD Primary Care Provider [phone] Encounter Details Date Type Department Care Team (Latest Contact Info) Description 04/01/2022 Abstract [facility] CONVERSIONS Dental, Provider, DDS Social History Tobacco Use Types Packs/Day Years Used Date Smoking Tobacco: Never Assessed Comments Unknown Sex and Gender Information Value Date Recorded Sex Assigned at Female 09/13/2022 10:29 AM EDT Legal Sex Female 10:29 AM EDT Gender Identity Female 09/13/2022 10:29 AM EDT Sexual Orientation Straight 09/13/2022 10 :29 AM EDT documented as of this encounter Plan of Treatment Upcoming Encounters Date Type Department Care Team (Late st Contact Info) Description 12/14/2024 9:00 AM EST Office Visit [facility] MEDICINE [address] [place] [address] Alonso Robles MD [address] [place] [address] 02/01/2025 10:00 AM EDT Office Visit [facility] ADULT DENTAL [address] [place] [address] Iza Dial [address] [place] [address] 02/05/2025 10:45 AM EDT Office Visit [facility] MEDICINE [address] [place] [address] Name, MD Cedric [address] [place] [address] documented as of this encounter Visit Diagnoses Not on filedocumented in this encounter Care Teams Trading Floor Operator Relationship Specialty Start Date End Date Name, MD Cedric [address] [place] [address] PCP - General Family Medicine 04/06/16 documented as of this encounter
--- OUTSIDE RECORDS SUMMARY | 2024-12-10 16:41 | XMS_ITS | Clinical Summary ---
Author Organization [facility] Address [address] [facility] [address] [place] [address] Phone Care Team Providers Care Ship Surveyor Name Role Phone Name, Cedric NICK Primary Care Provider [phone] Allergies Active Allergy Reactions Criticality Noted Date Comments Ceftriaxone Anaphylaxis High 09/23/2023 Iodinated Contrast Media Anaphylaxis,Aishwarya rtness of breath High 01/11/2023 Lactose Diarrhea Low 11/18/2022 Whole milk Magnesium Hydroxide Rash High 05/25/2024 Misc Natural Products Diarrhea,Other (se e comments) 08/26/2022 Medications fluticasone (FLONASE) 50 MCG/ACT nasal spray USE 2 SPRAYS IN EACH NOSTRIL ONCE DAILY 11/04/2021 Active Linzess 145 MCG capsule Take 1 tablet by mouth 1 (one) time each day 09/30/2021 Active Deep Sea Nasal [place] 0.65 % nasal spray 11/04/2021 Active polyethylene glycol (GLYCOLAX) 17 g packet Take 17 g by mouth 1 (one) time each day Active levothyroxine (SYNTHROID, LEVOTHROID) 75 MCG tablet Take 75 mcg by mouth 1 (one) time each day Active DULCOLAX 5 MG EC tablet Take 10 mg by mouth every night 11/17/2022 Active acetaminophen (TYLENOL) 500 MG tablet Take 2 tablets by mouth every 8 (eight) hours if needed 01/07/2023 Active lisinopril 10 MG tablet Take 1 tablet (10 mg total) by mouth 1 (one) time each day 90 tablet 3 04/17/2024 5 Active Active Problems Problem Noted Date Diagnosed Date Proteinuria, not otherwise specified 01/09/2023 Nephrolithiasis 01/09/2023 Mass of uterine adnexa 11/18/2022 3 Vitamin D deficiency 01/25/2022 Diverticulitis of intestine without perforation without bleeding 01/25/2022 Uterine leiomyoma 06/12/2018 09/18/2023 Vaginal bleeding 06/12/2018 09/18/2023 Chronic fatigue syndrome 01/04/2017 023 Abnormal uterine bleeding 11/12/2016 Resolved Problems Problem Noted Date Diagnosed Date Resolved Date Personal history of urinary calculi 01/25/2022 2022 Chronic fatigue 01/25/2022 2022 Complex ovarian cyst 01/25/2022 022 Diffuse goiter 01/25/2022 2022 Family history of cancer of colon 01/25/2022 2022 Helicobacter pylori (H. pylori) 01/25/2022 2022 Irregular period 01/25/2022 2022 Muscular wasting and disuse atrophy, not elsewhere classified 01/25/2022 2022 Thyroid nodule 01/25/2022 2022 Encounters Date Type Department Care Team Description 09/20/2024 10:00 AM EST Office Visit [facility] [address] [facility] [address] [place] [address] Buddy Ortiz MD Nephrolithiasis (Primary Dx); Proteinuria, not otherwise specified; Vitamin D deficiency, not otherwise specified 09/20/2024 Orders Only [facility] [address] [place] [address] Buddy Ortiz MD Proteinuria, not otherwise specified; Nephrolithiasis; Vitamin D deficiency, not otherwise specified from Last 3 Months Family History Medical History Relation Comments Hypertension Father Cancer Mother Colon cancer Mother Relation Status Comments Father Mother Social History Tobacco Use Types Packs/Day Years Used Date Smoking Tobacco: Never Smokeless Tobacco: Never Tobacco Cessation:Counseling Given: Not Answered Alcohol Use Standard Drinks/Week Comments Never 0 (1 standard drink = 0.6 oz pur e alcohol) Comments Unknown Sex and Gender Information Value Date Recorded Sex Assigned at Not on file Legal Sex Female 2:45 PM EST Gender Identity Not on file Sexual Orientation Not on file Last Filed Vital Signs Vital Sign Reading Time Taken Comments Blood Pressure 122/68 09/20/2024 9:52 AM EST Pulse 83 09/20/2024 9:52 AM EST Temperature - - Respiratory Rate - - Oxygen Saturation 99% 09/20/2023 10:03 AM EST Inhaled Oxygen Concentration - - Weight 61.7 kg (136 lb) 09/20/2024 9:52 AM EST Height 154.9 cm (5' 1 ) 09/20/2023 10:03 AM EST Body Mass Index 25.7 09/20/2023 10:03 AM EST Plan of Treatment Upcoming Encounters Date Type Department Care Team (Late st Contact Info) Description 09/23/2025 10:00 AM EST Office Visit [facility] [address] [address] Buddy Ortiz MD [address] [address] Health Maintenance Due Date Last Done Comments Breast Cancer Screening 1968 Pneumococcal Vaccine: Pediat rics (0 to 5 Years) and At-Risk Patients (6 to 64 Years) (1 of 2 - PCV) 1974 Colorectal Cancer Screening: Annual FOBT 2017 Colorectal Cancer Screening: Colonoscopy 2017 Colorectal Cancer Screening: Sigmoidoscopy 2017 Hepatitis B Vaccine (3 of 3 - 19+ 3-dose series) 07/27/2023 03/29/2023, 01/24/2023 Influenza Vaccine (#1) 2024 , 09/16/2020, 08/09/2018, Additional history exists Insurance [facility] ([id number]) [place] [address] PLAN ([id number]) Care Teams Ship Surveyor Relationship Specialty Start Date End Date Name, MD Cedric [address] [place] [address] PCP - General Internal Medicine 02/02/22
--- OUTSIDE RECORDS SUMMARY | 2024-12-10 16:41 | XMS_ITS | Encounter Summary ---
Author Organization [employer] Address [address] 7t [place] [address] Care Team Providers Care Family Preservation Officer Name Role Phone Name, Cedric NICK Primary Care Provider [phone] Encounter Details Date Type Department Care Team ([facility] st Contact Info) Description 09/23/2023 Orders Only [facility] MEDICINE [address] [place], [place] [phone] Name, MD Cedric [address] [place] [address] Social History Tobacco Use Types Packs/Day Years Used Date Smoking Tobacco: Never Smokeless Tobacco: Never Alcohol Use Standard Drinks/Week Comments Never 0 (1 standard drink = 0.6 oz pur e alcohol) Depression Answer Date Recorded Patient Health Questionnaire-9 Score 0 11/19/2022 Housing Stability Answer Date Recorded What is your housing situation today? I have lindy aburto 08/31/[address] you li ve. Do you have problems with any of the following? None of the above 08/31/2023 Food Insecurity Answer Date Recorded Within the past 12 months, y ou worried that your food would run out before you got money to buy more: Never True 08/31/2023 Within the past 12 months,th e food you bought just didn't last and you didn't have enough money to get more: Never True Transportation Answer Date Recorded In the past 12 months, has l ack of transportation kept you from medical appts, meetings, work or from getting things needed for daily living? No 08/31/2023 Utilities Answer Date Recorded In the past 12 months, has t he electric, gas, oil or water company threatened to shut off services in your home? No 08/31/2023 Depression Answer Date Recorded Patient Health Questionnaire-2 [...] Description 12/14/2024 9:00 AM EST Office Visit [facility] MEDICINE [address] [place] [address] Alonso Robles MD [address] [place] [address] 02/01/2025 10:00 AM EDT Office Visit [facility] ADULT DENTAL [address] [place] [address] Jayro, Iza [address] [place] [address] 02/05/2025 10:45 AM EDT Office Visit [facility] MEDICINE [address] [place] [address] Name, MD Cedric [address] [place] [address] documented as of this encounter Visit Diagnoses Not on filedocumented in this encounter Additional Health Concerns Assessment Noted Time PHQ-9 Depression Total Score: 0 11/19/19 23 1:50 PM EST documented as of this encounter Care Teams Family Preservation Officer Relationship Specialty Start Date End Date Name, MD Cedric [address] [place] [address] PCP - General Family Medicine 04/06/16 documented as of this encounter
--- OUTSIDE RECORDS SUMMARY | 2024-12-10 16:41 | XMS_ITS | Encounter Summary ---
Author Organization [facility] Address [address] [facility] [address] [place] [address] Phone Care Team Providers Care Unit Control Clerk Name Role Phone Name, Cedric NICK Primary Care Provider [phone] Encounter Details Date Type Department Care Team (Late Contact Info) Description 02/02/2022 Telephone [facility] [address] [place] [address] Jasiel Oliver, [address] [address] Social History Tobacco Use Types Packs/Day Years Used Date Smoking Tobacco: Never Smokeless Tobacco: Never Alcohol Use Standard Drinks/Week Comments Never 0 (1 standard drink = 0.6 oz pur e alcohol) Comments Unknown Sex and Gender Information Value Date Recorded Sex Assigned at Not on file Legal Sex Female 2:45 PM EST Gender Identity Not on file Sexual Orientation Not on file documented as of this encounter Miscellaneous Notes * Telephone Encounter - Eliza Ruelas - 02/02/2022 4:08 PM EDT Pts pcp called they are looking for the pts last office note however they are still opened. Please complete and I can send to Dr Liao. Thank you FAX# [phone] documented in this encounter Plan of Treatment Upcoming Encounters Date Type Department Care Team (Late Contact Info) Description 09/23/2025 10:00 AM EST Office Visit [facility] [address] [phone] Buddy Ortiz MD [address] [address] documented as of this encounter Visit Diagnoses Not on filedocumented in this encounter Care Teams Unit Control Clerk Relationship Specialty Start Date End Date Name, MD Cedric [address] [place] [address] PCP - General Internal Medicine 02/02/22 documented as of this encounter
--- OUTSIDE RECORDS SUMMARY | 2024-12-10 16:41 | XMS_ITS | Encounter Summary ---
Author Organization [employer] Address [address] [facility] [address] 7t [place] [address] Care Team Providers Care Speech Language Pathologist Prn Name Role Phone Name, Cedric NICK Primary Care Provider [phone] Reason for Visit * Reason Onset Date Comments Nurse Triage 02/08/2024 Encounter Details Date Type Department Care Team ([facility] st Contact Info) Description 02/08/2024 Telephone [facility] MEDICINE [address] [place], [place] [phone] Name, MD Cedric [address] [place] [address] Nurse Triage Social History Tobacco Use Types Packs/Day Years [...] AM EDT documented as of this encounter Miscellaneous Notes * Telephone Encounter - Catherine Graves RN - 02/08/2024 11:19 AM EDT Triage call with [facility] Batch Unit Treater ID [id number], [facility] Pt reports urinary symptoms of urinary frequency, foul odor for last 3 days. Pt reports drinking adequate liquids. Pt denies fever, burning with urination and inability to urinate. Pt last seen in [facility] 01/12/24 for sore throat, seen in ED 01/24/24 dx of dyspepsia and H/O bowel resection Pt requests to see PCP. Pt is advised no apts available in offices today or tomorrow. Pt [facility] today at [facility] for provider to see Pt and assess for UTI . Pt agrees with disposition and home care reviewed. Insurance is verified as active. Protocol Used: Urinary Symptoms (Adult) Protocol-Based Disposition: See in Office or Video Visit Today Video visit not offered Positive Triage Questions: * Bad or foul-smelling urine * Urinating more frequently than usual (i.e., frequency) * All higher-acuity triage questions were negative Care Advice Discussed: * Reasons To Call Back - Fever occurs - Pain or burning with urination - Unable to urinate and bladder feels full - You become worse * Telephone Encounter - Elizabeth Hernandez - 02/08/2024 10:31 AM EDT Symptom: Vaginal Symptoms - Not Bleeding Outcome: Schedule an urgent appointment (within 4 hours) or talk to a nurse or provider soon Reason: Foul-smelling and severe urination The caller accepted this outcome Please contact at [phone] Greek documented in this encounter Plan of Treatment Upcoming Encounters Date Type Department Care Team (Late st Contact Info) Description 12/14/2024 9:00 AM EST Office Visit [facility] MEDICINE [address] [place] [address] Alonso Robles MD [address] [place] [address] 02/01/2025 10:00 AM EDT Office Visit [facility] ADULT DENTAL [address] [place] [address] Josh Dialaris [address] [place] [address] 02/05/2025 10:45 AM EDT Office Visit [facility] MEDICINE [address] [place] [address] Name, MD Cedric [address] [place] [address] documented as of this encounter Visit Diagnoses Not on filedocumented in this encounter Additional Health Concerns Assessment Noted Time PHQ-9 Depression Total Score: 0 11/19/19 23 1:50 PM EST documented as of this encounter Care Teams Speech Language Pathologist Prn Relationship Specialty Start Date End Date Name, MD Cedric [address] [place] [address] PCP - General Family Medicine 04/06/16 documented as of this encounter
== END 2024-12-10 11:59 | disposition home or self-care (01) ==
PROVIDERS: PCP Internal Medicine Geriatric Medicine; Visit Provider Surgery
DX: R10.9 Unspecified abdominal pain (principal)
CPT/HCPCS: 99214

== ENCOUNTER → 2024-12-10 11:51 | Outpatient (BNVA) | payer OTHER, SELFPAY | PROVIDERS: PCP Internal Medicine Geriatric Medicine; Visit Provider Surgery | DX: R10.9 Unspecified abdominal pain (principal) | CPT/HCPCS: 99212 ==

== ENCOUNTER 2025-01-03 11:23 | Outpatient (REF) | payer OTHER, SELFPAY ==
--- OUTSIDE RECORDS SUMMARY | 2025-01-03 12:44 | XMS_ITS | Clinical Summary ---
Author Organization [facility] Address [address] [facility] [address] [place] [address] Phone Care Team Providers Care Shoe Lay Out Planner Name Role Phone Name, Cedric NICK Primary Care Provider [phone] Allergies Active Allergy Reactions Criticality Noted Date [...] each day 09/30/2021 Active Deep Sea Nasal [place] 0.65 % nasal spray 11/04/2021 Active polyethylene [...] classified 01/25/2022 2022 Thyroid nodule 01/25/2022 2022 Family History Medical History Relation Comments Hypertension [...] Visit [facility] [address] [address] Buddy Ortiz MD [address] [address] Health Maintenance Due Date Last [...] , 09/16/2020, 08/09/2018, Additional history exists Insurance Android App Review Source [facility] ([id number]) [employer] [facility] ([id number]) Care Teams Shoe Lay Out Planner Relationship Specialty Start Date End Date Name, MD Cedric [address] [place] [address] PCP - General Internal Medicine 02/02/22
--- OUTSIDE RECORDS SUMMARY | 2025-01-03 12:44 | XMS_ITS | Encounter Summary ---
Author Organization [employer] Address [address] 7[address] [place] [address] Care Team Providers Care Filling Winder Name Role Phone Name, Cedric NICK Primary Care Provider Encounter Details Date Type Department Care Team (Latest Contact Info) Description 12/14/2024 Travel Social History Tobacco Use Types Packs/Day Years [...] Care Team (Late st Contact Info) Description 02/01/2025 10:00 AM EDT Office Visit [facility] ADULT DENTAL [address] [place] [address] Jayro, Iza [address] [place] [address] 02/05/2025 10:45 AM EDT Office Visit [facility] MEDICINE [address] [place] [address] Name, MD Cedric [address] [place] [address] documented as of this encounter Visit Diagnoses Not on filedocumented in this encounter Additional Health Concerns Assessment Noted Time PHQ-9 Depression Total Score: 0 02/20/20 24 10:24 AM EDT documented as of this encounter Care Teams Filling Winder Relationship Specialty Start Date End Date NameCedric MD [address] [place] [address] PCP - General Family Medicine 04/06/16 documented as of this encounter
--- OUTSIDE RECORDS SUMMARY | 2025-01-03 12:44 | XMS_ITS | Encounter Summary ---
Author Organization [employer] Address [address] [facility] 7t [place] [address] Care Team Providers Care Shirt Maker Name Role Phone Name, Cedric NICK Primary Care Provider Encounter Details Date Type Department Care Team (Late st Contact Info) Description 04/25/2023 Abstract [facility] MEDICINE [address] [place] [address] Name, MD Cedric [address] [place] [address] Social History Tobacco Use Types Packs/Day Years [...] Description 02/01/2025 10:00 AM EDT Office Visit [facility] ADULT DENTAL [address] [place] [address] Iza Dial [address] [place] [address] 02/05/2025 10:45 AM EDT Office Visit [facility] [place] [address] Name, [place] [address] documented as of this encounter Procedures Procedure [...] EDT Recommended 5 year follow up ( [facility]) Historical Provider HEALTH MAINTENANCE Final Result documented in this encounter Visit Diagnoses Not on filedocumented in this encounter Additional Health Concerns Assessment Noted Time PHQ-9 Depression Total Score: 0 11/19/19 23 1:50 PM EST documented as of this encounter Care Teams Shirt Maker Relationship Specialty Start Date End Date Name, [place] [address] PCP - General Family Medicine 04/06/16 documented as of this encounter
--- OUTSIDE RECORDS SUMMARY | 2025-01-03 12:44 | XMS_ITS | Encounter Summary ---
Author Organization [employer] Address [address] 7[address] [place] [address] Care Team Providers Care Heel Reducer Name Role Phone Name, Cedric NICK Primary Care Provider Encounter Details Date Type Department Care Team ([facility] st Contact Info) Description 12/14/2024 9:00 AM EST Office Visit [facility] MED[facility]INE [address] [place], [place] [phone] Alonso Robles MD [address] [place], [place] [phone] Seborrheic keratosis (Primary Dx) Social History Tobacco Use Types Packs/Day Years [...] AM EDT documented as of this encounter Last Filed Vital Signs Vital Sign Reading Time Taken Comments Blood Pressure 132/80 12/14/2024 8:48 AM EST Pulse 78 12/14/2024 8:48 AM EST Temperature 37.1 ??C (98.7 ??F) 12/14/2024 8:48 AM ES T Respiratory Rate 16 12/14/2024 8:48 AM EST Oxygen Saturation - - Inhaled Oxygen Concentration - - Weight 60.7 kg (133 lb 14.4 oz) 12/14/2024 8:48 AM EST Height 154.9 cm (5' 1 ) 12/14/2024 8:48 AM EST Body Mass Index 25.3 12/14/2024 8:48 AM EST documented in this encounter Progress Notes * Alonso Robles MD - 12/14/2024 9:00 AM EST Subjective Patient ID: Maryann Ruelas is a 54 y.o. female who presents for No chief complaint on file.. HPI 54 yr old woman with hx of SK here today for R arm skin lesion for check up and she also complainedof itching in skin in winter times. Review of Systems Constitutional: Negative for diaphoresis, fatigue and fever. HENT: Negative for ear discharge, ear pain, facial swelling and hearing loss. Respiratory: Negative for cough, choking, chest tightness and shortness of breath. Cardiovascular: Negative for chest pain and leg swelling. Gastrointestinal: Negative for abdominal distention, abdominal pain and anal bleeding. Endocrine: Negative for cold intolerance and heat intolerance. Genitourinary: Negative for enuresis, flank pain and frequency. Musculoskeletal: Negative for arthralgias, back pain and gait problem. Neurological: Negative for dizziness, facial asymmetry and headaches. Psychiatric/Behavioral: Negative for agitation, behavioral problems and confusion. Objective Physical Exam Constitutional: Appearance: Normal appearance. HENT: Head: Normocephalic and atraumatic. Nose: Nose normal. Eyes: Pupils: Pupils are equal, round, and reactive to light. Pulmonary: Effort: Pulmonary effort is normal. Musculoskeletal: General: Normal range of motion. Cervical back: Normal range of motion. Skin: Comments: 5 mm papule dark with stuck on appearance with verruca like surface on R arm Skin on upper ext is within normal limits Neurological: General: No focal deficit present. Mental Status: She is alert. Assessment/Plan Diagnoses and all orders for this visit: Seborrheic keratosis Cryotherapy for Destruction of Benign Symptomatic lesion: Indication: SK Lesions Location: R arm Procedure: The risks, benefits and alternatives were discussed with the patient. Risks include, butare not limited to blistering, pain, dyspigmentation and inefficacy. The patient and/or guardian provided verbal consent for treatment with liquid nitrogen. Two freeze thaw cycles were performed. The patient tolerated the procedure well. There were no complications. Aftercare discussed with thepatient. documented in this encounter Plan of Treatment Upcoming Encounters Date Type Department Care Team (Late st Contact Info) Description 02/01/2025 10:00 AM EDT Office Visit [facility] ADULT DENTAL [address] [place] [address] Jayro, Iza [address] [place] [address] 02/05/2025 10:45 AM EDT Office Visit [facility] MED[facility]INE [address] [place] [address] Name, MD Cedric [address] [place] [address] documented as of this encounter Visit Diagnoses Diagnosis Seborrheic keratosis- Primary documented in this encounter Additional Health Concerns Assessment Noted Time PHQ-9 Depression Total Score: 0 02/20/20 24 10:24 AM EDT documented as of this encounter Care Teams Heel Reducer Relationship Specialty Start Date End Date Name, MD Cedric [address] [place] [address] PCP - General Family Medicine 04/06/16 documented as of this encounter
--- OUTSIDE RECORDS SUMMARY | 2025-01-03 12:44 | XMS_ITS | Encounter Summary ---
Author Organization [facility] Address [address] [facility] [facility] 7 [place] [address] Care Team Providers Care Finish Grinder Name Role Phone NameCedric MD Primary Care Provider [phone] Encounter Details Date Type Department Care Team (Latest Contact Info) Description 04/01/2022 Abstract [facility] CONVERSIONS Dental, Provider, DDS Social History Tobacco [...] Description 02/01/2025 10:00 AM EDT Office Visit [facility] ADULT DENTAL [address] [place] [address] Jayro, Iza [address] [place] [address] 02/05/2025 10:45 AM EDT Office Visit [facility] MEDICINE [address] [place] [phone] Cedric Liao MD [address] [place] [address] documented as of this encounter Visit Diagnoses Not on filedocumented in this encounter Care Teams Finish Grinder Relationship Specialty Start Date End Date Cedric Liao MD [address] [place] [address] PCP - General Family Medicine 04/06/16 documented as of this encounter
--- OUTSIDE RECORDS SUMMARY | 2025-01-03 12:44 | XMS_ITS | Encounter Summary ---
Author Organization [employer] Address [address] 7[address] [place] [address] Care Team Providers Care Lan Specialist Name Role Phone Name, Cedric NICK Primary Care Provider [phone] Encounter Details Date Type Department Care Team ([facility] st Contact Info) Description 09/23/2023 Orders Only [facility] MEDICINE [address] [place], [place] [phone] Name, MD Cedric [address] [place] [address] Social History Tobacco Use Types Packs/Day Years [...] Description 02/01/2025 10:00 AM EDT Office Visit [facility] ADULT DENTAL [address] [place] [address] Jayro, Iza [address] [place] [address] 02/05/2025 10:45 AM EDT Office Visit [facility] MEDICINE [address] [place] [address] Name, MD Cedric [address] [place] [address] documented as of this encounter Visit Diagnoses Not on filedocumented in this encounter Additional Health Concerns Assessment Noted Time PHQ-9 Depression Total Score: 0 11/19/19 23 1:50 PM EST documented as of this encounter Care Teams Lan Specialist Relationship Specialty Start Date End Date Name, MD Cedric [address] [place] [phone] PCP - General Family Medicine 04/06/16 documented as of this encounter
--- OUTSIDE RECORDS SUMMARY | 2025-01-03 12:44 | XMS_ITS | Clinical Summary ---
Author Organization [employer] Address [address] [facility] 7t [place] [address] Care Team Providers Care Meter Maker Name Role Phone Name, Cedric NICK Primary Care Provider [phone] Allergies Active Allergy Reactions Criticality Noted Date [...] IN WATER AND TAKE ONCE DIRECTED BY [facility] 05/31/20 23 Active Acetaminophen Extra [...] Encounters Date Type Department Care Team Description 12/14/2024 9:00 AM EST Office Visit [facility] MEDICINE [address] [place] [address] Alonso Robles MD Seborrheic keratosis (Primary Dx) 12/14/2024 Travel 10/03/2024 10:30 AM EST Office Visit [facility] MEDICINE [address] [place] [address] Name, MD Cedric Acquired hypothyroidism (Primary Dx); Persistent proteinuria; Healthcare maintenance from Last 3 Months Immunizations Name Administration [...] 37.1 ??C (98.7 ??F) 12/14/2024 8:48 AM EST Respiratory Rate 16 12/14/2024 8:48 AM EST Oxygen Saturation 98% 10/03/2024 10: 23 AM EST Inhaled Oxygen Concentration - - Weight 60.7 kg (133 lb 14.4 oz) 12/14/2024 8:48 AM EST Height 154.9 cm (5' 1 ) 12/14/2024 8:48 AM EST Body Mass Index 25.3 12/14/2024 8:48 AM EST Plan of Treatment Upcoming Encounters Date Type Department Care Team (Late st Contact Info) Description 02/01/2025 10:00 AM EDT Office Visit [facility] ADULT DENTAL [address] [place] [address] Iza Dial [address] [place] [address] 02/05/2025 10:45 AM EDT Office Visit [facility] MEDICINE [address] [place] [address] Name, [place] [address] Health Maintenance Due Date Last Done Comments CT Colonography 1968 FIT DNA/Cologuard 1968 FIT 1968 FOBT 1968 Sigmoidoscopy 1968 Alcohol/Substance Use Screening 1980 Pneumococcal Vaccine: 50+ Years (1 of 1 - PCV) 2018 COVID-19 Vaccine ( - 2023- season) 2024 04/21/2021, 03/24/2021 Influenza Vaccine (#1) 2024 , 09/16/2020, 08/09/2018, Additional history exists Cervical Cancer Screening 12/24/2024 HPV/Cotest 12/24/2024 12/24/2019 Pap Smear 12/24/2024 12/24/2019 Dental Oral Exam 01/31/2025 08/02/2024, , 12/18/2019, Additional history exists Dental Prophylaxis 01/31/2025 08/02/2024, 04/01/2022 Depression Screening 02/19/2025 02/20/2024, 02/20/20 24 SDOH Screening 02/19/2025 02/20/2024 Dental X-Ray: Full Mouth 04/02/2025 04/01/2022, 1111/2015 Dental X-Ray: Bitewings 08/03/2025 08/02/20 24, 04/01/2022, [...] 10/03/2024 1 1:20 AM EST Acquired hypothyroidism PROPHYLAXIS - ADULT Routine 08/02/2024 1 0:00 AM EDT Dental calculus BITEWINGS - 2 RADIOGRAPHIC IMAGES Routine 08/02/2024 10:00 AM EDT Dental caries Dental calculus Missing teeth, acquired Excessive attrition of teeth, limited to enamel Generalized gingival recession PERIODIC ORAL EVALUATION - ESTABLISHED PATIENT Routine 08/02/2024 10:00 AM EDT BI MAMMOGRAM SCREENING TOMOSYNTHESIS BILATERAL Routine 05/25/2024 12:45 PM EDT HM COLONOSCOPY Routine 07/21/2023 INTRAORAL - COMPLETE SERIES OF RADIOGRAPHIC IMAGES Routine 04/01/2022 12:00 AM EDT PAP/HPV Routine 12/24/2019 from Last 3 Months or Most Recently Relevant to Health Maintenance Results * TSH W/Reflex to FT4 (10/03/2024 11:20 AM EST) TSH reflex Free T4 2.86 0.32 - 4.0 uIU/mL [facility] Blood Venous blood specimen / Unknown 10/03/2024 11:20 AM EST 10/03/2024 1:16 PM EST us Cedric Liao MD LAB BLOOD ORDERABLES Final Resul t Performing Organization Address [facility] Co de Phone Number [facility] [address] [place] [phone] * (ABNORMAL) Albumin, Random Urine W/Creatinine (10/03/2024 11:20 AM EST) Creatinine, Urine 124.09 mg/dL [facility] Microalbumin Urine 669.0 mg/L [facility] Microalbum Creatinine Ratio Ur 539.1(H) <30 ug/mg cr [facility] Comment:Albumin/Creatinine R atio Reference Ranges: Normal: < 30 ug/mg creatinine Microalbuminuria: 30 - 300 ug/mg creatinineClinical Albuminuria: > 300 ug/mg creatinine Urine (Urine, Random) 10/03/2024 11:20 AM EST 10/03/2024 1:06 PM EST us Cedric Liao MD LAB URINE ORDERABLES Final Resul t Performing Organization Address [facility]/ZIP Co de Phone Number [facility] [address] [place] [phone] * Hepatitis C Antibody with Reflex to HCV, RNA, Quantitative, Real-Time PCR (10/03/2024 11:20 AM EST) Hepatitis C Antibody Nonreactive Nonreactive [facility] Comment:Antibodies to HCV no t detected; does not exclude early acuteHCV infection. Blood Venous blood specimen / Unknown 10/03/2024 11:20 AM EST 10/03/2024 1:16 PM EST us Cedirc Liao MD LAB BLOOD ORDERABLES Final Resul t Performing Organization Address [facility] de Phone Number [facility] [address] [place] [phone] * HIV-1/2 Antigen and Antibodies, Fourth Generation, with Reflexes (10/03/2024 11:20 AM EST) HIV AB/AG Nonreactive Nonreactive [facility] Comment:HIV-1 p24 Ag and/or HIV-1/HIV-2 Ab not detected.A test result that is nonreactive does not exclude thepossibility of exposure to or infection with HIV-1 and/orHIV-2. Nonreactive results in this assay for individualswith prior exposure to HIV-1 and/or HIV-2 may be due toantigen and antibody levels that are below the limit ofdetection of this assay.The [employer] HIV Ag/Ab Combo assay result andsupplemental assay results should be interpreted inconjunction with the patient's clinical presentation,history and other laboratory results. If the results areinconsistent with clinical evidence, additional testing issuggested to confirm the result. Blood Venous blood specimen / Unknown 10/03/2024 11:20 AM EST 10/03/2024 1:16 PM EST us Cedric Liao MD LAB BLOOD ORDERABLES Final Resul t Performing Organization Address [facility] Co de Phone Number [facility] [address] [place] [phone] * Basic Metabolic Panel (10/03/2024 11:20 AM EST) Sodium 140 135 - 145 mmol/L [facility] Potassium 3.7 3.3 - 5.1 mmol/L [facility] Chloride 104 96 - 108 mmol/L [facility] Carbon Dioxide 26 22 - 29 mmol/L [facility] Anion Gap 14 12 - 20 [facility] Urea Nitrogen (BUN) 11 9 - 16 mg/dL [facility] Creatinine, Serum 0.79 0.5 - 1.4 mg/dL [facility] Estimated Glomerular Filt Rate >60 [facility] Comment:Chronic Kidney Disea se: Estimated GFR < 60 mL/min/[id number] Kidney Disease: Estimated GFR < 15 mL/min/1.73m2 Glucose 104 60 - 115 mg/dL [facility] Calcium 9.7 8.4 - 10.2 mg/dL [facility] Blood Venous blood specimen / Unknown 10/03/2024 11:20 AM EST 10/03/2024 1:16 PM EST us Cedric Name MD LAB BLOOD ORDERABLES Final Resul t Performing Organization Address City/State/[facility] Co de Phone Number [facility] [address] [place] [phone] * BI Mammogram Screening Tomosynthesis Bilateral (05/25/2024 12:45 PM EDT) Anatomical Region Laterality Modality Breast Bilateral Mammography 05/25/2024 12:4 5 PM EDT Narrative 06/19/2024 9:18 PM EDT ? [facility] [place] ? [address] ?[place] [address] ? Mammography Report ? Signed ? Patient: Maryann Tan ?MR ?? #: [id number] ? : 1970 ?Acct:[id number] ? Age/Sex: 54 / F ?ADM Date: /12/24 ? Loc: HO.MAMMO ? Attending Dr: Cedric Liao MD ? Ordering Physician: Cedric Liao MD ?Results: 0Incomplet ?? e: Needs Additional Imaging Evaluation ? Date of Service: 05/25/24 ?Follow Up: Additional Imagi ?? ng ? Procedure(s): MM tomosynthesis screening BI ?? Accession Number(s): [id number] ? cc: Name,Cedric NICK ? EXAMINATION: ?? [...] 06/19/242101 ? DD/ 1245 ? TD/TT: ? Electric Blasting Cap Assembler: ? Procedure Note Asha, Image - 06/19/2024 [facility] [address] [place] [address] Mammography Report Signed Patient: Maryann Tan AMR #: [id number] : 1970Acct:[id number] Age/Sex: 54 / FADM Date: 05/25/24 Loc: HO.MAMMO Attending Dr: Cedric Liao MD Ordering Physician: Cedric Liaoults: 0Incomplet e: Needs Additional Imaging Evaluation Date of Service: 05/25/24Follow Up: Additional Imagi ng Procedure(s): MM tomosynthesis screening BI Accession Number(s): [id number] cc: Cedric Liao MD EXAMINATION: MM SCREENING DIGITAL BREAST TOMOSYNTHESIS, BILATERAL [...] in OV> 06/19/24 2102 DD/ 1245 TD/TT: Electric Blasting Cap Assembler: Cedric Liao MD IMG BI PROCEDURES Edited Result - Final * (ABNORMAL) Hm Colonoscopy (07/21/2023) Colonoscopy Abnormal(A ) Normal us Cedric Liao MD HEALTH MAINTENANCE Final Result * Hm Pap Smear (12/24/2019) Pap Negative for intraephithelial lesion or malignancy Negative for intraephithelial lesion or malignancy, Other HPV Undetected 12/24/2019 [facility] Provider HEALTH MAINTENANCE Final Result from Last 3 Months or Most Recently [place]vant [id number] [facility] [address] [place], [place] [address] [address] DENTAL - HSN PARTIAL ([place]) [id number] [place] [id number] Care Teams Meter Maker Relationship Specialty Start Date End Date Name, MD Cedric [address] [place] [address] PCP - General Family Medicine 04/06/16
--- OUTSIDE RECORDS SUMMARY | 2025-01-03 12:44 | XMS_ITS | Encounter Summary ---
Author Organization [facility] Address [address] [facility] [address] [place] [address] Phone Care Team Providers Care Talend Etl Developer Name Role Phone Name, Cedric NICK Primary Care Provider [phone] Encounter Details Date Type Department Care Team (Late Contact Info) Description 02/02/2022 Telephone [facility] [address] [facility] [address] [place] [address] Jasiel Oliver, [address] [address] Social History Tobacco Use Types Packs/Day Years [...] send to Dr Liao. Thank you FAX# [phone] documented in this encounter Plan of Treatment Upcoming Encounters Date Type Department Care Team (Late Contact Info) Description 09/23/2025 10:00 AM EST Office Visit [facility] [address] [phone] Buddy Ortiz MD [address] [phone] documented as of this encounter Visit Diagnoses Not on filedocumented in this encounter Care Teams Talend Etl Developer Relationship Specialty Start Date End Date Name, MD Cedric [address] [place] [phone] PCP - General Internal Medicine 02/02/22 documented as of this encounter
== END 2025-01-03 11:24 | disposition home or self-care (01) ==
LOC: HO.US 11:23
PROVIDERS: PCP Internal Medicine Geriatric Medicine; Visit Provider Surgery
DX: R10.9 Unspecified abdominal pain (principal)
CPT/HCPCS: 76705

== ENCOUNTER → 2025-01-03 11:26 | Outpatient (BNV) | payer OTHER, SELFPAY | PROVIDERS: PCP Internal Medicine Geriatric Medicine; Visit Provider Radiology Diagnostic Radiology | DX: R10.9 Unspecified abdominal pain (principal) | CPT/HCPCS: 76705 ==

== ENCOUNTER 2025-02-02 15:22 | Emergency (ER) | payer OTHER, SELFPAY ==
--- NOTE | ~2025-02-02 | US_ITS ---
CLINICAL HISTORY: R knee swelling, pain, recent 8hr flight Venous duplex ultrasound right lower extremity Comparison: None Findings: The visualized deep veins are fully compressible with normal Doppler color flow and spectral tracings. Small complex popliteal cyst measuring 2.2 cm. IMPRESSION: 1. Negative for right lower extremity deep vein thrombosis. 2. Small complex popliteal cyst suggested This document has been electronically signed by: Enio Delatorre MD on 02/02/2025 17:28:45
[2025-02-02 15:43] VITALS: BP 123/76; PULSE 92; RESP 20; TEMP 36.6; O2SAT 98; BMI 21.8
--- NOTE | 2025-02-02 15:44 | ED.EXTPRO ---
HPI - Extremity Problem General Chief complaint: Extremity Injury, Lower Stated complaint: left leg pain Time Seen by Provider: 02/02/25 20:58 Source: patient Mode of arrival: ambulatory Limitations: no limitations History of Present Illness ED Provider: Dr. Brenda Marie HPI Narrative: patient comes to the emergency room complaining of right-sided knee pain that started yesterday. Patient states that it seemed to be a bit more swollen than usual. Patient denies any distal lower extremity swelling or pain. Patient denies any trauma. Related Data Home Medications ?Medication ?Instructions ?Recorded ?Confirmed lisinopril 10 mg tablet 10 mg PO DAILY 09/14/22 12/10/24 levothyroxine 75 mcg tablet 1 tab PO DAILY 12/23/22 12/10/24 pseudoephedrine HCl 30 mg tablet 30 mg PO BEDTIME 04/18/24 12/10/24 (Sudogest) Previous Rx's ?Medication ?Instructions ?Recorded terconazole 0.8 % vaginal cream 1 appful vaginal BEDTIME 3 days 11/21/23 #20 grams hydrocortisone 2.5 % topical cream 1 appl NC BID-QID PRN hemorrhoids 12/06/23 with perineal applicator #30 grams (Proctosol HC) hydrocortisone acetate 25 mg 25 mg NC BID #24 ea 12/06/23 rectal suppository (Anucort-HC) tramadol 50 mg tablet 50 mg PO BID PRN pain #6 tabs 05/26/24 bisacodyl 5 mg tablet,delayed 10 mg (2 x 5 mg) PO DAILY #60 tabs 08/10/24 release docusate sodium 100 mg capsule 200 mg (2 x 100 mg) PO BEDTIME 08/10/24 #180 caps polyethylene glycol 3350 17 17 g PO DAILY #510 grams 08/10/24 gram/dose oral powder (Miralax) acetaminophen 500 mg tablet 500 mg PO Q6H PRN fever or pain 02/02/25 #30 tabs Allergies Allergy/AdvReac Type Severity Reaction Status Date / Time ceftriaxone Allergy Severe Anaphylaxis Verified 02/02/25 15:49 Iodinated Contrast Media Allergy Severe Anaphylaxis Verified 02/02/25 15:49 [IV Contrast Dye] magnesium hydroxide Allergy Intermediate Rash Verified 02/02/25 15:49 [From Milk of Magnesia] Review of Systems Review of Systems: Constitutional : No Weight loss, No Fever, No Chills, No Night Sweats, No Fatigue, No Malaise ENT/Mouth : No Hearing loss, No Ear Pain, No Nasal Congestion, No Sinus Pain, No Hoarseness, No sore throat, No Rhinorrhea, No Swallowing Difficulty Eyes: No Eye Pain, No Swelling, No Redness, No Foreign Body, No Discharge, No Vision Changes Cardiovascular : No Chest Pain, No SOB, No Dyspnea on Exertion, No Orthopnea, No Edema, No Palpitations Respiratory : No Cough, No Sputum, No Wheezing, No Smoke Exposure, No Dyspnea Gastrointestinal : No Nausea, No Vomiting, No Diarrhea, No Constipation, No abdominal Pain, No Hematochezia, No Melena Genitourinary : no irregular bleeding, No Dysuria, No Urinary Frequency, No Hematuria, No Urinary Incontinence, No Urgency, No Flank Pain, No Urinary Flow Changes, No Hesitancy Musculoskeletal : Complaining of pain behind the right knee. Complaining of a bit of swelling., No Myalgias, No Joint Swelling Skin : No Skin Lesions, No rash Neuro : No Weakness, No Numbness, No Paresthesias, No Loss of Consciousness, No Dizziness, No Headache Psych : No Anxiety/Panic, No Depression, No SI/HI/AH/VH, No Social Issues, Heme/Lymph: No Bruising, No Bleeding,No Lymphadenopathy Endocrine : No Polyuria, No Polydipsia, No Temperature Intolerance PMFSH Past Medical History Medical History Hemorrhoids with complication Endometrial hyperplasia Heartburn GERD (gastroesophageal reflux disease) Skin lesion of back Kidney stone Vitamin D deficiency Hypothyroidism Surgical History Hx of ventral hernia repair (05/31/24) Hx of unilateral oophorectomy History of surgery Tubal ligation status Hx of colonoscopy Hx of esophagogastroduodenoscopy Family History Family History Father Hypertension Respiratory failure Mother Pancreatic cancer Social History Social History Household Members: Spouse Housing: Apartment Are you a primary health care marketing specialist to a significant other at home: No Do you presently have visiting nurse or other home services: No Alcohol intake: never Patient Tobacco Use Status: Never used Tobacco Second Hand Smoke Exposure: No service: No Current occupational status: employed Current occupation: [employer] Sexual orientation: Straight/Heterosexual Gender identity: Female Physical Exam Vital Signs: Vital Signs: Last Vital Signs Temp 98 F 02/02/25 15:43 Pulse 92 02/02/25 15:43 Resp 20 02/02/25 15:43 BP 123/76 02/02/25 15:43 Pulse Ox 98 02/02/25 15:43 O2 Del Method Room Air 02/02/25 15:43 BMI result Body Mass Index 21.8 Const: Other: Appearance: Alert. Oriented X3. No acute distress. Eyes: Pupils equal, round and reactive to light. ENT: Pharynx normal. Neck: Normal inspection. Neck supple. No lymph nodes noted. No crepitus CVS: Normal heart rate and rhythm. Pulses normal. Normal S1 and S2 Respiratory: No respiratory distress. Breath sounds normal. No Wheezing. No rales Abdomen: Soft and nontender. No rigidity. No distention. Skin: Skin warm and dry. Normal skin color. Normal skin turgor. Extremities: No lower extremity edema. No Lacerations. No Rash . There is a bit of swelling around the right knee, patient has normal range of motion with flexion extension, no additional warmth, no erythema. Neuro: Oriented X 3. No motor deficit. No sensory deficit. Moving all extremities. No slurred speech. CN 2 through 12 grossly intact Psych: calm, cooperative, normal affect Course Course Course Narrative: This is an RME performed by Ирина Courtney CNP: Additional HPI, ROS, PE not included below will be deferred to primary provider. Patient is a 54-year-old female who presents emergency department for evaluation of pain and swelling to the right knee since yesterday. Denies precipitating injury. Admits to a history of similar presentation about 9 years ago when she was living in [place] and had to have fluid drained from the knee, requesting aspiration today. She does state that 4 days ago she traveled by plane an 8 hour flight, did not get up and move around much on the flight. Denies history of VTE/malignancy. The right knee is swollen, with tenderness upon palpation to the posterior knee. Plan: Will obtain venous duplex ultrasound Medical Decision Making Medical Decision Making MDM Narrative: Interpretation of ultrasound: Negative for DVT, there is a small complex popliteal cyst present. Likely a Rubi's cyst Independent Interpretation I performed an independent interpretation of an: Ultrasound Radiology Impression Discussion of test interpretation with radiology: I have reviewed the radiologist's reading. Radiologist Impression: The visualized deep veins are fully compressible with normal Doppler color flow and spectral tracings. Small complex popliteal cyst measuring 2.2 cm. IMPRESSION: 1. Negative for right lower extremity deep vein thrombosis. 2. Small complex popliteal cyst suggested Discharge Plan Discharge Clinical Impression: Rubi cyst Patient Disposition: Home, Self-Care Instructions: Bakers Cyst (ED) Additional Instructions: Please follow-up with your primary care physician tomorrow. If you have any worsening or new symptoms, please return to the emergency room or call 911 Prescriptions: New acetaminophen 500 mg tablet 500 mg PO Q6H PRN (Reason: fever or pain) Qty: 30 0RF No Action levothyroxine 75 mcg tablet 1 tab PO DAILY tramadol 50 mg tablet 50 mg PO BID PRN (Reason: pain) Qty: 6 0RF lisinopril 10 mg tablet 10 mg PO DAILY hydrocortisone [Proctosol HC] 2.5 % cream with perineal applicator 1 appl NC BID-QID PRN (Reason: hemorrhoids) Qty: 30 2RF hydrocortisone acetate [Anucort-HC] 25 mg suppository 25 mg NC BID Qty: 24 2RF terconazole 0.8 % cream 1 appful vaginal BEDTIME 3 Days Qty: 20 0RF pseudoephedrine HCl [Sudogest] 30 mg tablet 30 mg PO BEDTIME bisacodyl 5 mg tablet,delayed release (DR/EC) 10 mg PO DAILY Qty: 60 2RF docusate sodium 100 mg capsule 200 mg PO BEDTIME Qty: 180 3RF polyethylene glycol 3350 [Miralax] 17 gram/dose powder 17 g PO DAILY Qty: 510 2RF Print Language: Lithuanian
[2025-02-02 21:34] VITALS: BP 122/76; PULSE 84; RESP 16; TEMP 36.6; O2SAT 97
== END 2025-02-02 21:35 | disposition home or self-care (01) ==
PROVIDERS: Emergency Provider Emergency Medicine; PCP Internal Medicine Geriatric Medicine
DX: M71.21 Synovial cyst of popliteal space [Baker], right knee (principal); M79.604 Pain in right leg; M79.89 Other specified soft tissue disorders
CPT/HCPCS: 93971; 99282; 99284

== ENCOUNTER → 2025-02-02 15:49 | Outpatient (BNV) | payer OTHER, SELFPAY | PROVIDERS: PCP Internal Medicine Geriatric Medicine; Visit Provider Radiology Vascular & Interventional Radiology | DX: M25.561 Pain in right knee (principal); R22.41 Localized swelling, mass and lump, right lower limb | CPT/HCPCS: 93971 ==

== ENCOUNTER 2025-02-05 13:11 | Outpatient (REF) | payer OTHER, SELFPAY ==
--- NOTE | ~2025-02-05 | XR_ITS ---
EXAMINATION: XR KNEE 4 OR MORE VIEWS RIGHT HISTORY: right knee pain COMPARISON: There are no prior studies available for comparison. FINDINGS: Five views of the right knee are submitted. Osseous mineralization is normal. There is no fracture or dislocation. There is mild degenerative change of the patellofemoral joint. The soft tissues are unremarkable. There is no joint effusion. XR/XR knee RT 4V IMPRESSION: Mild osteoarthritis of the patellofemoral articulation. Electronically signed by: Sarmad Alan MD 02/05/2025 01:35 PM EDT
--- OUTSIDE RECORDS SUMMARY | 2025-02-05 15:58 | XMS_ITS | Encounter Summary ---
Author Organization [employer] Address [address] [facility] [address] [place] [address] Care Team Providers Care Layout Man Name Role Phone Name, Cedric NICK Primary Care Provider [phone] Reason for Referral * Consultation (Routine) - Pending Review Specialty Diagnoses / Procedures Referred By Contac t Referred To Contact Orthopaedic Surgery Diagnoses Acute pain of right knee Sebas Rajan MD [address] [place] [phone] Phone: tel: fax: Referral ID Status Reason Start Date Expiration Date Visits Requested Visits Authorized [id number] Pending Review Specialty Services Required 02/05/2025 02/05/2026 1 1 Encounter Details Date Type Department Care Team (Late st Contact Info) Description 02/05/2025 1:00 PM EDT Office Visit [facility] [address] [place] [address] [phone] Sebas Rajan MD [address] [place] [address] [phone] Acute pain of right knee (Primary Dx) Social History Tobacco Use Types [...] Sign Reading Time Taken Comments Blood Pressure 129/79 02/05/2025 12:45 PM EDT Pulse 68 02/05/2025 12:45 PM EDT Temperature 36.6 ??C (97.9 ??F) 02/05/2025 12:45 PM E DT Respiratory Rate 17 02/05/2025 12:45 PM EDT Oxygen Saturation 99% 02/05/2025 12:45 PM EDT Inhaled Oxygen Concentration - - Weight 64 kg (141 lb) 02/05/2025 12:45 PM EDT Height 154.9 cm (5' 1 ) 02/05/2025 12:45 PM EDT Body Mass Index 26.64 02/05/2025 12:45 PM EDT documented in this encounter Progress Notes * Sebas Henry MD - 02/05/2025 1:00 PM EDT SUBJECTIVE Crecencia Lara Ruelas is a 54 y.o. female who presents for No chief complaint on file.. Knee Pain Review of Systems Constitutional: Negative for fever. HENT: Negative for sore throat. Respiratory: Negative for cough and shortness of breath. Cardiovascular: Negative for chest pain. Gastrointestinal: Negative for abdominal pain. Neurological: Negative for headaches. Allergies Allergen Reactions Ceftriaxone Anaphylaxis Iodinated Contrast Media Shortness of breath and Anaphylaxis Magnesium Hydroxide Rash Lactose Diarrhea Whole milk OBJECTIVE Vitals: 02/05/25 1245 BP: 129/79 BP Location: Left arm Patient Position: Sitting BP Cuff Size: Adult Pulse: 68 Resp: 17 Temp: 97.9 ??F (36.6 ??C) TempSrc: Oral SpO2: 99% Weight: 141 lb (64 kg) Height: 5' 1 (1.549 m) Physical Exam Vitals reviewed. Constitutional: Appearance: Normal appearance. HENT: Head: Normocephalic and atraumatic. Right Ear: External ear normal. Left Ear: External ear normal. Nose: Nose normal. Mouth/Throat: Mouth: Mucous membranes are moist. Eyes: Conjunctiva/sclera: Conjunctivae normal. Cardiovascular: Rate and Rhythm: Normal rate and regular rhythm. Pulmonary: Effort: Pulmonary effort is normal. Breath sounds: Normal breath sounds. Musculoskeletal: Right knee: Effusion present. No erythema. Tenderness present. Left knee: Normal. Right lower leg: Normal. Left lower leg: Normal. Skin: General: Skin is warm. Neurological: Mental Status: She is alert. Mental status is at baseline. Assessment/Plan Problem List Items Addressed This Visit Acute pain of right knee - Primary Patient of Name here with c/o new onet of right knee pain. [place] [facility] [place]. Work up included a RLE US that was negative for DVT and only showed: IMPRESSION: 1. Negative for right lower extremity deep vein thrombosis. 2. Small complex popliteal cyst suggested On today's exam: small knee efusion, no redness, no increase in temperature, full ROM Etiology ? OA ? VS gout Plan: Obtain CBC, Uric Acid, Plain films right knee. Rx Meloxicam Referral: Ortho F/u with PCP Relevant Medications meloxicam (Mobic) 15 MG tablet Other Relevant Orders CBC auto differential Uric acid XR Knee 4+ Views Right Referral to Orthopaedic Surgery documented in this encounter Miscellaneous Notes * Assessment & Plan Note - Sebas Henry MD - 02/05/2025 12:51 PM EDT Associated Problem(s): Acute pain of right knee Patient of Dr. Liao here with c/o new onet of right knee pain. [place] [facility] [place]. Work up included a RLE US that was negative for DVT and only showed: IMPRESSION: 1. Negative for right lower extremity deep vein thrombosis. 2. Small complex popliteal cyst suggested On today's exam: small knee efusion, no redness, no increase in temperature, full ROM Etiology ? OA ? VS gout Plan: Obtain CBC, Uric Acid, Plain films right knee. Rx Meloxicam Referral: Ortho F/u with PCP documented in this encounter Plan of Treatment Upcoming Encounters Date Type Department Care Team (Late st Contact Info) Description 03/12/2025 10:45 AM EDT Office Visit [facility] [address] [place] [address] Name, MD Cedric [address] [place] [address] 07/16/2025 3:00 PM EDT Office Visit [facility] [address] [place] [address] Iza Dial [address] [place] [address] Scheduled Orders Name Type Priority Associated Diagnoses Orde r Schedule CBC auto differential Lab Routine Acute pain of right knee Expected: 02/05/2025 (Approximate), Expires: 02/05/2026 Uric acid Lab Routine Acute pain of right knee Expected: 02/05/2025 (Approximate), Expires: 02/05/2026 Scheduled Referrals Name Type Priority Associated Diagnoses Order Schedule Referral to Orthopaedic Surgery Outpatient Referral Routine Acute pain of right knee Expected: 02/05/2025 (Approximate), Expires: 02/05/2026 documented as of this encounter Procedures Procedure Name Priority Date/Time Associated Diagnosis Comments XR KNEE 4+ VIEWS RIGHT Routine 02/05/2025 1:11 PM EDT Acute pain of right knee documented in this encounter Results * XR Knee 4+ Views Right (02/05/2025 1:11 PM EDT) Anatomical Region Laterality Modality Lower Extremities, Knee Right Radiogra phic Imaging 02/05/2025 1:11 PM EDT Narrative 02/05/2025 1:40 PM EDT ?[facility] ?[address] ?[place] [address] ?XRay Report ? Signed ? Patient: Maryann Tan ?MR ?? #: [id number] ? : 1970 ?Acct:[id number] ? Age/Sex: 54 / F ?ADM Date: 02/05/25 ? Loc: HO.HHCX ? Attending Dr: Sebas Felix MD ? Ordering Physician: Sebas Felix MD ?? Date of Service: 02/05/25 ?? Procedure(s): XR knee RT 4V ?? Accession Number(s): [id number] ? cc: Sebas Felix MD ? EXAMINATION: ??XR KNEE 4 OR MORE VIEWS RIGHT ? HISTORY: right knee pain ? COMPARISON: There are no prior studies available for comparison. ? FINDINGS: ? Five views of the right knee are submitted. ??Osseous mineralization is ?? normal. ??There is no fracture or dislocation. ??There is mild ?? degenerative change of the patellofemoral joint. ??The soft tissues are ?? unremarkable. There is no joint effusion. ? XR/XR knee RT 4V ?? IMPRESSION: ? Mild osteoarthritis of the patellofemoral articulation. ? Electronically signed by: ??Sarmad Alan MD ??02/05/2025 01:35 PM EDT ?? RP ? Dictated By: ?Sarmad Alan MD ? Signed By: ?<Electronically signed by Sarmad Alan MD in OV> ?02/05/25 1335 ? DD/ 1311 ? TD/TT: 02/05/25 1320 ? Granulator Machine Operator: ? Procedure Note Parishfeliztorstencassandra, Image - 02/05/[address] [address] XRay Report Signed Patient: Maryann Tan AMR #: [id number] : 1970Acct:[id number] Age/Sex: 54 / FADM Date: 02/05/25 Loc: HO.HHCX Attending Dr: Sebas Felix MD Ordering Physician: Sebas Felix MD Date of Service: 02/05/25 Procedure(s): XR knee RT 4V Accession Number(s): [id number] cc: Sebas Felix MD EXAMINATION: XR KNEE 4 OR MORE VIEWS RIGHT HISTORY: right knee pain COMPARISON: There are no prior studies available for comparison. FINDINGS: Five views of the right knee are submitted. Osseous mineralization is normal. There is no fracture or dislocation. There is mild degenerative change of the patellofemoral joint. The soft tissues are unremarkable. There is no joint effusion. XR/XR knee RT 4V IMPRESSION: Mild osteoarthritis of the patellofemoral articulation. Electronically signed by: Sarmad Alan MD 02/05/2025 01:35 PM EDT Dictated By: Sarmad Alan MD Signed By: <Electronically signed by Sarmad Alan MD in OV> 02/05/25 1335 DD/ 1311 TD/TT: 02/05/25 1320 Granulator Machine Operator: Sebas Henry MD IMG XR PROCEDURES Robi tawnya Result - Final documented in this encounter Visit Diagnoses Diagnosis Acute pain of right knee- Primary documented in this encounter Additional Health Concerns Assessment Noted Time PHQ-9 Depression Total Score: 0 02/20/20 24 10:24 AM EDT documented as of this encounter Care Teams Layout Man Relationship Specialty Start Date End Date Name, MD Cedric [address] [place] [address] PCP - General Family Medicine 04/06/16 documented as of this encounter
--- OUTSIDE RECORDS SUMMARY | 2025-02-05 15:58 | XMS_ITS | Encounter Summary ---
Author Organization [employer] Address [address] [facility] [address] [place] [address] Care Team Providers Care Evp And Chief Operating Officer Name Role Phone Name, Cedric NICK Primary Care Provider [phone] Encounter Details Date Type Department Care Team (Late st Contact Info) Description 04/25/2023 Abstract [facility] [address] [place] [address] [phone] Name, MD Cedric [address] [place] [phone] Social History Tobacco Use Types Packs/Day Years [...] Description 03/12/2025 10:45 AM EDT Office Visit [facility] [address] [place] [address] [phone] Name, MD Cedric [address] [place] [address] 07/16/2025 3:00 PM EDT Office Visit [facility] [address] [place] [address] Iza Dial [address] [place] [address] documented as of this encounter Procedures Procedure [...] EDT Recommended 5 [place] [facility] Historical Provider HEALTH MAINTENANCE Final Result documented in this encounter Visit Diagnoses Not on filedocumented in this encounter Additional Health Concerns Assessment Noted Time PHQ-9 Depression Total Score: 0 11/19/19 23 1:50 PM EST documented as of this encounter Care Teams Evp And Chief Operating Officer Relationship Specialty Start Date End Date Name, MD Cedric [address] [place] [address] PCP - General Family Medicine 04/06/16 documented as of this encounter
--- OUTSIDE RECORDS SUMMARY | 2025-02-05 15:58 | XMS_ITS | Encounter Summary ---
Author Organization [employer] Address [address] [facility] [address] [place] [address] Care Team Providers Care Print Binding And Finishing Worker Name Role Phone Name, Cedric NICK Primary Care Provider [phone] Encounter Details Date Type Department Care Team ([facility] st Contact Info) Description 09/23/2023 Orders Only [facility] [address] [place], [place] [phone] Name, MD Cedric [address] [place] [address] Social History Tobacco Use Types Packs/Day Years [...] Description 03/12/2025 10:45 AM EDT Office Visit [facility] [address] [place] [address] Name, MD Cedric [address] [place] [address] 07/16/2025 3:00 PM EDT Office Visit [facility] [address] [place] [address] Jayro, Iza [address] [place] [address] documented as of this encounter Visit Diagnoses Not on filedocumented in this encounter Additional Health Concerns Assessment Noted Time PHQ-9 Depression Total Score: 0 11/19/19 23 1:50 PM EST documented as of this encounter Care Teams Print Binding And Finishing Worker Relationship Specialty Start Date End Date Name, MD Cedric [address] [place] [phone] PCP - General Family Medicine 04/06/16 documented as of this encounter
--- OUTSIDE RECORDS SUMMARY | 2025-02-05 15:58 | XMS_ITS | Encounter Summary ---
Author Organization [facility] Address [address] [facility] [address] [place] [address] Phone Care Team Providers Care Partner Management Consultant Name Role Phone Name, Cedric NICK Primary Care Provider [phone] Encounter Details Date Type Department Care Team (Late Contact Info) Description 02/02/2022 Telephone [facility] [address] [facility] [address] [place] [address] Jasiel Oliver, [address] [address] Social History Tobacco Use Types Packs/Day Years [...] send to Dr Liao. Thank you FAX# [phone] documented in this encounter Plan of Treatment Upcoming Encounters Date Type Department Care Team (Late Contact Info) Description 09/23/2025 10:00 AM EST Office Visit [facility] [address] [phone] Buddy Ortiz MD [address] [phone] documented as of this encounter Visit Diagnoses Not on filedocumented in this encounter Care Teams Partner Management Consultant Relationship Specialty Start Date End Date Name, MD Cedric [address] [place] [phone] PCP - General Internal Medicine 02/02/22 documented as of this encounter
--- OUTSIDE RECORDS SUMMARY | 2025-02-05 15:58 | XMS_ITS | Clinical Summary ---
Author Organization [employer] Address [address] [facility] 7t [place] [address] Care Team Providers Care Chemical Sprayer Name Role Phone Name, Cedric NICK Primary Care Provider [phone] Allergies Active Allergy Reactions Criticality Noted Date [...] IN WATER AND TAKE ONCE DIRECTED BY [facility] GI DEPT 05/31/20 23 Active Acetaminophen Extra Strength 500 MG tabletIndications: Acquired hypothyroidism TAKE 2 TABLETS BY MOUTH EVERY 8 HOURS NEEDED fevor OR FOR PAIN 90 tablet 07/04/20 24 Active levothyroxine (Synthroid, Levoxyl) 75 MCG tabletIndications: Acquired hypothyroidism Take 1 tablet (75 mcg) by mouth See administration instructions. Use Tuesday to Tuesday and skip weekends 07/05/20 24 Active omeprazole (PriLOSEC) [address] capsule Take 1 capsule by mouth Once per day. 02/20/20 24 Active meloxicam (Mobic) 15 MG tabletIndications: Acute pain of right knee Take 1 tablet (15 mg) by mouth Once per day. 30 tablet 11 02/06/20 25 026 Active Active Problems Problem Noted Date Diagnosed Date Acute pain of right knee 02/05/2025 Assessment & Plan (02/05/2025 1:05 PM EDT): Patient of Name here with c/o new onet of right knee pain. Seen at [facility] 02/02/2025. Work up included a RLE [...] Rx Meloxicam Referral: Ortho F/u with PCP Dental caries 08/02/2024 Dental calculus 08/02/2024 Missing [...] 08/11/23. Proteinuria 11/18/2022 GERD (gastroesophageal reflux disease) Tubular adenoma 07/25/2018 Uterine leiomyoma 06/12/2018 Vaginal discharge 06/12/2018 Diffuse goiter 01/04/2017 Vitamin D deficiency 01/04/2017 Seasonal allergic rhinitis 09/21/2016 Irregular periods 09/21/2016 Hypothyroidism 11/24/2015 Acute hip pain 11/24/2015 Acquired hypothyroidism 11/24/2015 Resolved Problems Problem Noted Date Diagnosed Date Resolved Date Mass of uterine adnexa 11/18/202209/23 Chronic fatigue syndrome 01/04/201708/2023 Muscle atrophy 09/21/2016 05/09/2023 Encounters Date Type Department Care Team Description 02/05/2025 1:00 PM EDT Office Visit [facility] [address] [place] [address] Sebas Rajan MD Acute pain of right knee (Primary Dx) 01/29/2025 Telephone [facility] [address] [place] [address] Iza Dial 01/03/2025 Orders Only [facility] External Provider, [facility] 12/14/2024 9:00 AM EST Office Visit [facility] [address] [place] [address] Al-Ramahi, Kefah, MD Seborrheic keratosis (Primary Dx) 12/14/2024 Travel from Last 3 Months Immunizations Name Administration [...] is your housing situation today? I have lindydalia aburto 02/20/[address] you [...] Mass Index 26.64 02/05/2025 12:45 PM EDT Plan of Treatment Upcoming Encounters Date Type Department Care Team (Late st Contact Info) Description 03/12/2025 10:45 AM EDT Office Visit [facility] [address] [place] [address] Name, MD Cedric [address] [place] [address] 07/16/2025 3:00 PM EDT Office Visit [facility] [address] [place] [address] JayroIza lockett [address] [place] [address] Health Maintenance Due Date Last Done Comments CT Colonography 1968 FIT DNA/Cologuard 1968 FIT 1968 FOBT 1968 Sigmoidoscopy 1968 Alcohol/Substance Use Screening 1980 Pneumococcal Vaccine: 50+ Years (1 of 1 - PCV) 2018 COVID-19 Vaccine (3 - season) 2024 04/21/2021, 03/24/2021 Influenza Vaccine (#1) 2024 , 09/16/2020, 08/09/2018, Additional history exists Cervical Cancer Screening 12/24/2024 HPV/Cotest 12/24/2024 12/24/2019 Pap Smear 12/24/2024 12/24/2019 Dental Oral Exam 01/31/2025 08/02/2024, , 12/18/2019, Additional history exists Dental Prophylaxis 01/31/2025 08/02/2024, 04/01/2022 Depression Screening 02/19/2025 02/20/2024, 02/20/20 SDOH Screening 02/19/2025 02/20/2024 Dental X-Ray: Full Mouth 04/02/2025 04/01/2022, 11/0 11/2015 Dental X-Ray: Bitewings 08/03/2025 08/02/20, 04/01/2022, 12/18/2019, Additional history exists Tobacco Screening 08/06/2025 08/06/2024 Mammogram 05/25/2026 05/25/2024, 07/1 , 04/19/2023, Additional history exists DTaP/Tdap/Td Vaccines (2 [...] Comments XR KNEE 4+ VIEWS RIGHT Routine 5 1:11 PM EDT Acute pain of right knee US VENOUS DUPLEX LE RT Routine 5 5:28 PM EDT US ABDOMEN LIMITED Routine 01/07/2025 11 :35 PM EST HEPATITIS C AB W/REFL TO HCV RNA, QN, PCR Routine 10/03/2024 11:20 AM EST Healthcare maintenance HIV 1/2 ANTIGEN/ANTIBODY, FOURTH GENERATION W/RFL Routine 10/03/2024 11:20 AM EST Healthcare maintenance PROPHYLAXIS - ADULT Routine 08/02/2024 1 0:00 AM EDT Dental calculus BITEWINGS - 2 RADIOGRAPHIC IMAGES Routine 08/02/2024 10:00 AM EDT Dental caries Dental calculus Missing teeth, acquired Excessive attrition of teeth, limited to enamel Generalized gingival recession PERIODIC ORAL EVALUATION - ESTABLISHED PATIENT Routine 08/02/2024 10:00 AM EDT BI MAMMOGRAM SCREENING TOMOSYNTHESIS BILATERAL Routine 05/25/2024 12:45 PM EDT COLONOSCOPY Routine 07/21/2023 INTRAORAL - COMPLETE SERIES OF RADIOGRAPHIC IMAGES Routine 04/01/2022 12:00 AM EDT HM PAP/HPV Routine 12/24/2019 from Last 3 Months or Most Recently Relevant to Health Maintenance Results * XR Knee 4+ Views Right (02/05/2025 1:11 PM EDT) Anatomical Region Laterality Modality Lower Extremities, Knee Right Radiogra [facility] 02/05/2025 1:11 PM EDT Narrative 02/05/2025 1:40 PM EDT ?[facility] ?[address] ?[place] [address] ?XRay Report ? Signed ? Patient: Ruelas Ruelas,Creheidyia A ?MR ?? #: [id number] ? : 1970 ?Acct:[id number] ? Age/Sex: 54 / F ?ADM Date: 02/05/25 ? Loc: HO.HHCX ? Attending Dr: Sebas Felix MD ? Ordering Physician: Sebas Felix MD ?? Date of Service: 02/05/25 ?? Procedure(s): XR knee RT 4V ?? Accession Number(s): [id number] ? cc: Sebas Felix MD ? EXAMINATION: [...] DD/ 1311 ? TD/TT: 02/05/25 1320 ? Pvc Monitor: ? Procedure Note Asha, Molly - 02/05/[address] [address] XRay Report Signed Patient: Maryann Tan AMR #: [id number] : 1970Acct:[id number] Age/Sex: 54 / FADM Date: 02/05/25 Loc: HO.HHCX Attending Dr: Sebas Felix MD Ordering Physician: Sebas Felix MD Date of Service: 02/05/25 Procedure(s): XR knee RT 4V Accession Number(s): [id number] cc: Sebas Felix MD EXAMINATION: XR KNEE [...] Sarmad Alan MD 02/05/2025 01:35 PM EDT RP Dictated By: Sarmad Alan MD Signed By: <Electronically signed by Sarmad Alan MD in OV> 02/05/25 1335 DD/ 1311 TD/TT: 02/05/25 1320 Pvc Monitor: us Sebas Henry MD IMG XR PROCEDURES Robi tawnya Result - Final * US VENOUS DUPLEX LE RT (02/02/2025 5:28 PM EDT) Anatomical Region Laterality Modality Abdomen Ultrasound 02/02/2025 5:28 PM EDT Narrative 02/02/2025 5:30 PM EDT ? [facility] ?[address] ?[place] [address] ? Ultrasound Report ? Signed ? Patient: Suraj RuelasBeatrizquinton A ?MR ?? #: [id number] ? : 1970 ?Acct:[id number] ? Age/Sex: 54 / F ?ADM Date: 02/02/25 ? Loc: HO.ED ? Attending : ? Ordering Physician: Keysha Courtney CNP ?? Date of Service: 02/02/25 ?? Procedure(s): US venous duplex LE RT ?? Accession Number(s): [id number] ? cc: Keysha Courtney CNP; Name,Cedric NICK ? CLINICAL HISTORY: R knee swelling, pain, recent 8hr flight ? Venous duplex ultrasound right lower extremity ? Comparison: None ? Findings: ?? The visualized deep veins are fully compressible with normal Doppler color ?? flow and spectral tracings. ?? Small complex popliteal cyst measuring 2.2 cm. ? IMPRESSION: ?? 1. Negative for right lower extremity deep vein thrombosis. ? 2. Small complex popliteal cyst suggested ? This document has been electronically signed by: Enio Delatorre MD on ?? 02/02/2025 17:28:45 ? Dictated By: ?Enio Delatorre MD ? Signed By: ?<Electronically signed by Enio Delatorre MD in OV> ? 02/02/25 1729 ? DD/ 1728 ? TD/TT: 02/02/25 1728 ? Pvc Monitor: ? Procedure Note Asha, Molly - 02/02/[address] [address] Ultrasound Report Signed Patient: Maryann Tan AMR #: [id number] : 1970Acct:[id number] Age/Sex: 54 / FADM Date: 02/02/25 Loc: HO.ED Attending Dr: Ordering Physician: Keysha Courtney CNP Date of Service: 02/02/25 Procedure(s): US venous duplex LE RT Accession Number(s): [id number] cc: Keysha Courtney CNP; Name,Cedric NICK CLINICAL HISTORY: R knee swelling, pain, recent 8hr flight Venous duplex ultrasound right lower extremity Comparison: None Findings: The visualized deep veins are fully compressible with normal Doppler color flow and spectral tracings. Small complex popliteal cyst measuring 2.2 cm. IMPRESSION: 1. Negative for right lower extremity deep vein thrombosis. 2. Small complex popliteal cyst suggested This document has been electronically signed by: Enio Delatorre MD on 02/02/2025 17:28:45 Dictated By: Enio Delatorre MD Signed By: <Electronically signed by Enio Delatorre MD in OV> 02/02/251728 DD/ 27 TD/TT: 02/02/251727 Pvc Monitor: us [facility] External Provider IMG US PROCEDURES Edited Result - Final * US Abdomen Limited (01/07/2025 11:35 PM EST) Anatomical Region Laterality Modality Abdomen Ultrasound 01/07/2025 11:3 5 PM EST Narrative 01/07/2025 11:36 PM EST ? [facility] ?[address] ?[place] [address] ? Ultrasound Report ? Signed ? Patient: Ruelas Ruelas,Crecencia A ?MR ?? #: [id number] ? : 1970 ?Acct:[id number] ? Age/Sex: 54 / F ?ADM Date: 01/03/25 ? Loc: HO.US ? Attending Dr: Kushal Araya MD ? Ordering Physician: Kushal Araya MD ?? Date of Service: 01/03/25 ?? Procedure(s): US abdomen limited ?? Accession Number(s): [id number] ? cc: Yanni,Cedric NICK; Kushal Araya MD ? CLINICAL HISTORY: R10.9 - Unspecified abdominal pain ? Exam: Ultrasound of the abdomen limited. ? Comparison: None. ? Findings: ? Limited abdominal ultrasound was performed with the patient's site of pain ?? within the supraumbilical region. Patient has reportedly undergone prior ?? laparoscopic oophorectomy and prior bowel surgery. Clinical concern is for ?? ventral hernia. ?? Focused ultrasound examination is performed in this area. No hernia or ?? fluid collection is identified. No hyperemia. ? Impression: ? No ultrasound correlate to the patient's reported clinical abnormality. ?? Specifically, no hernia identified. ? This document has been electronically signed by: Candleario Gabriel MD on ?? 01/07/2025 23:35:26 ? Dictated By: ?Candelario Gabriel MD ? Signed By: ?<Electronically signed by Candelario Gabriel MD in OV> ? 01/07/256 ? DD/ ? TD/TT: 01/07/255 ? Pvc Monitor: ? Procedure Note Asha, Image - 01/07/[address] [address] Ultrasound Report Signed Patient: Maryann Tan AMR #: [id number] : 1970Acct:[id number] Age/Sex: 54 / FADM Date: 01/03/25 Loc: HO.US Attending Dr: Kushal Araya MD Ordering Physician: Kushal Araya MD Date of Service: 01/03/25 Procedure(s): US abdomen limited Accession Number(s): [id number] cc: Cedric Liao MD; Kushal Araya MD CLINICAL HISTORY: R10.9 - Unspecified abdominal pain Exam: Ultrasound of the abdomen limited. Comparison: None. Findings: Limited abdominal ultrasound was performed with the patient's site of pain within the supraumbilical region. Patient has reportedly undergone prior laparoscopic oophorectomy and prior bowel surgery. Clinical concern is for ventral hernia. Focused ultrasound examination is performed in this area. No hernia or fluid collection is identified. No hyperemia. Impression: No ultrasound correlate to the patient's reported clinical abnormality. Specifically, no hernia identified. This document has been electronically signed by: Candelario Gabriel MD on 01/07/2025 23:35:26 Dictated By: Candelario Gabriel MD Signed By: <Electronically signed by Candelario Gabriel MD in OV> 01/07/252335 DD/ 34 TD/TT: 01/07/252334 Pvc Monitor: [facility] External Provider IMG US PROCEDURES Edited Result - Final * Hepatitis C Antibody with Reflex to HCV, RNA, Quantitative, Real-Time PCR (10/03/2024 11:20 AM EST) Hepatitis C Antibody Nonreactive Nonreactive [facility] Comment:Antibodies to HCV no t detected; does not exclude early acuteHCV infection. Blood Venous blood specimen / Unknown 10/03/2024 11:20 AM EST 10/03/2024 1:16 PM EST Cedric Liao MD LAB BLOOD ORDERABLES Final Resul t [facility] [address] [place] [phone] * HIV-1/2 Antigen and Antibodies, Fourth Generation, with Reflexes (10/03/2024 11:20 AM EST) HIV AB/AG Nonreactive Nonreactive [facility] Comment:HIV-1 p24 Ag and/or HIV-1/HIV-2 Ab not detected.A test result that is nonreactive does not exclude thepossibility of exposure to or infection with HIV-1 and/orHIV-2. Nonreactive results in this assay for individualswith prior exposure to HIV-1 and/or HIV-2 may be due toantigen and antibody levels that are below the limit ofdetection of this assay.The thesweetlink HIV Ag/Ab Combo assay result andsupplemental assay results should be interpreted inconjunction with the patient's clinical presentation,history and other laboratory results. If the results areinconsistent with clinical evidence, additional testing issuggested to confirm the result. Blood Venous blood specimen / Unknown 10/03/2024 11:20 AM EST 10/03/2024 1:16 PM EST us Cedric Liao MD LAB BLOOD ORDERABLES Final Resul t [facility] [address] [place] [address] [phone] * BI Mammogram Screening Tomosynthesis Bilateral (05/25/2024 12:45 PM EDT) Anatomical Region Laterality Modality Breast Bilateral Mammography 05/25/2024 12:4 5 PM EDT Narrative 06/19/2024 9:18 PM EDT ? [facility] ? [address] [facility] ?[place] [address] ? Mammography Report ? Signed ? Patient: Ruelas Ruelas,Beatrizia A ?MR ?? #: [id number] ? : 1970 ?Acct:[id number] ? Age/Sex: 54 / F ?ADM Date: 07/12/24 ? Loc: HO.MAMMO ? Attending : Cedric Liao MD ? Ordering Physician: Cedric Liao MD ?Results: 0Incomplet ?? e: Needs Additional Imaging Evaluation ? Date of Service: 05/25/24 ?Follow Up: Additional Imagi ?? ng ? Procedure(s): MM tomosynthesis screening BI ?? Accession Number(s): [id number] ? cc: Yanni,Cedric NICK ? EXAMINATION: ?? MM SCREENING DIGITAL [...] 06/19/242101 ? DD/ 1245 ? TD/TT: ? Pvc Monitor: ? Procedure Note Donlaehter, Image - 06/19/2024 [facility] [address] [place] [address] Mammography Report Signed Patient: Maryann Tan AMR #: [id number] : 1970Acct:[id number] Age/Sex: 54 / FADM Date: 05/25/24 Loc: HO.MAMMO Attending Dr: Cedric Liao MD Ordering Physician: Cedric Liaoults: 0Incomplet e: Needs Additional Imaging Evaluation Date of Service: 05/25/24Follow Up: Additional Imagi ng Procedure(s): MM tomosynthesis screening BI Accession Number(s): [id number] cc: Cedric Liao MD EXAMINATION: MM SCREENING [...] in OV> 06/19/24 2102 DD/ 1245 TD/TT: Pvc Monitor: Cedric Name IMG BI PROCEDURES Edited Result - Final * (ABNORMAL) Colonoscopy (07/21/2023) Colonoscopy Abnormal(A ) Normal us Cedric Liao MD HEALTH MAINTENANCE Final Result * Pap Smear (12/24/2019) Pap Negative for intraephithelial lesion or malignancy Negative for intraephithelial lesion or malignancy, Other HPV Undetected 12/24/2019 Historical Provider HEALTH MAINTENANCE Final Result from Last 3 Months or Most Recently Relevant to Health Maintenance [place] [place] [address] DENTAL - HSN PARTIAL (MEDICAID) [address] [place] [id number] [place] [address] [address] [place] [address] Care Teams Chemical Sprayer Relationship Specialty Start Date End Date Name, MD Cedric [address] [place] [address] PCP - General Family Medicine 04/06/16
--- OUTSIDE RECORDS SUMMARY | 2025-02-05 15:59 | XMS_ITS | Encounter Summary ---
Author Organization [facility] [facility] Address [address] [facility] 7t [place] [address] Care Team Providers Care Theater Manager Name Role Phone NameCedric MD Primary Care Provider [phone] Encounter Details Date Type Department Care Team (Latest Contact Info) Description 04/01/2022 Abstract [facility] CONVERSIONS Dental, Provider, DDS Social History Tobacco [...] Description 03/12/2025 10:45 AM EDT Office Visit [facility] [address] [place] [address] Cedric Liao MD [address] [place] [address] 07/16/2025 3:00 PM EDT Office Visit [facility] [address] [place] [address] Josh Dialaris [address] [place] [address] documented as of this encounter Visit Diagnoses Not on filedocumented in this encounter Care Teams Theater Manager Relationship Specialty Start Date End Date NameCedric MD [address] [place] [address] PCP - General Family Medicine 04/06/16 documented as of this encounter
--- OUTSIDE RECORDS SUMMARY | 2025-02-05 15:59 | XMS_ITS | Clinical Summary ---
Author Organization [facility] Address [address] [facility] [address] [place] [address] Phone Care Team Providers Care Batteryman Name Role Phone Name, Cedric NICK Primary Care Provider [phone] Allergies Active Allergy Reactions Criticality Noted Date [...] each day 09/30/2021 Active Deep Sea Nasal Cleves 0.65 % nasal spray 11/04/2021 Active polyethylene [...] [facility] [address] [address] Buddy Ortiz MD [address] [address] Health Maintenance Due Date Last [...] , 09/16/2020, 08/09/2018, Additional history exists Insurance [employer] [facility] ([id number]) [employer] [facility] ([id number]) Care Teams Batteryman Relationship Specialty Start Date End Date Name, MD Cedric [address] [place] [address] PCP - General Internal Medicine 02/02/22
--- OUTSIDE RECORDS SUMMARY | 2025-02-05 15:59 | XMS_ITS | Encounter Summary ---
Author Organization [employer] Address [address] [facility] [address] 7[address] [place] [address] Care Team Providers Care Airborne And Air Delivery Specialist Name Role Phone Name, Cedric NICK Primary Care Provider [phone] Encounter Details Date Type Department Care Team ([facility] st Contact Info) Description 01/29/2025 Telephone [facility] [address] [place], [place] [phone] Jayro, Iza [address] [place], [place] [phone] Social History Tobacco Use Types Packs/Day Years [...] encounter Miscellaneous Notes * Telephone Encounter - Shruti Valladares - 01/29/2025 9:44 AM EDT Maryann stated she was in [place] arriving today He will inform her about her appointment and will have her call us back on . documented in this encounter Plan of Treatment Upcoming Encounters Date Type Department Care Team (Late st Contact Info) Description 03/12/2025 10:45 AM EDT Office Visit [facility] [address] [place] [address] NameCedric MD [address] [place] [address] 07/16/2025 3:00 PM EDT Office Visit [facility] [address] [place] [address] Josh Dialaris [address] [place] [address] documented as of this encounter Visit Diagnoses Not on filedocumented in this encounter Additional Health Concerns Assessment Noted Time PHQ-9 Depression Total Score: 0 02/20/20 24 10:24 AM EDT documented as of this encounter Care Teams Airborne And Air Delivery Specialist Relationship Specialty Start Date End Date NameCedric MD [address] [place] [address] PCP - General Family Medicine 04/06/16 documented as of this encounter
--- OUTSIDE RECORDS SUMMARY | 2025-02-05 15:59 | XMS_ITS | Encounter Summary ---
Author Organization [employer] Address [address] [facility] [address] [place] [address] Care Team Providers Care Leadership Intern Name Role Phone Name, Cedric NICK Primary Care Provider [phone] Encounter Details Date Type Department Care Team (Late st Contact Info) Description 01/03/2025 Orders Only [facility] External Provider, [facility] Social History Tobacco Use Types Packs/Day Years [...] Description 03/12/2025 10:45 AM EDT Office Visit [facility] [address] [place] [address] Name, MD Cedric [address] [place] [address] 07/16/2025 3:00 PM EDT Office Visit [facility] [address] [place] [address] Iza Dial [address] [place] [address] documented as of this encounter Procedures Procedure Name Priority Date/Time Associated Diagnosis Comments US VENOUS DUPLEX LE RT Routine 02/02/2025 5:28 PM EDT US ABDOMEN LIMITED Routine 01/07/2025 11 :35 PM EST documented in this encounter Results * US VENOUS DUPLEX LE RT (02/02/2025 5:28 PM EDT) Anatomical Region Laterality Modality Abdomen Ultrasound 02/02/2025 5:28 PM EDT Narrative 02/02/2025 5:30 PM EDT ? [facility] ?[address] ?[place] [address] ? Ultrasound Report ? Signed ? Patient: Ruelas Ruelas,Beatrizia A ?MR ?? #: [id number] ? : 1970 ?Acct:[id number] ? Age/Sex: 54 / F ?ADM Date: 03/22/25 ? Loc: HO.ED ? Attending Dr: ? Ordering Physician: Keysha Courtney CNP ?? Date of Service: 02/02/25 ?? Procedure(s): US venous duplex LE RT ?? Accession Number(s): [id number] ? cc: Keysha Courtney CNP; Name,Cedric NICK [...] DD/ 1728 ? TD/TT: 02/02/25 1728 ? Mold Yard Worker: ? Procedure Note Molly Barry - 02/02/2025 [place] [address] Ultrasound Report Signed Patient: Maryann Tan AMR #: [id number] : 1970Acct:[id number] Age/Sex: 54 / FADM Date: 02/02/25 Loc: HO.ED Attending Dr: Ordering Physician: Keysha Courtney CNP Date of Service: 02/02/25 Procedure(s): US venous duplex LE RT Accession Number(s): [id number] cc: Keysha Courtney CNP; Name,Cedric NICK CLINICAL [...] signed by Enio Delatorre MD in OV> 02/02/25 172 DD/ 27 TD/TT: 02/02/251727 Mold Yard Worker: [facility] External Provider IMG US PROCEDURES Edited Result - Final * US Abdomen Limited (01/07/2025 11:35 PM EST) Anatomical Region Laterality Modality Abdomen Ultrasound 01/07/2025 11:3 5 PM EST Narrative 01/07/2025 11:36 PM EST ? [facility] ?[address] ?[place] [address] ? Ultrasound Report ? Signed ? Patient: Suraj RuelasMaryann A ?MR ?? #: [id number] ? : 1970 ?Acct:[id number] ? Age/Sex: 54 / F ?ADM Date: 01/03/25 ? Loc: HO.US ? Attending Dr: Kushal Araya MD ? Ordering Physician: Kushal Araya MD ?? Date of Service: 01/03/25 ?? Procedure(s): US abdomen limited ?? Accession Number(s): [id number] ? cc: Cedric Liao MD; Kushal Araya MD ? CLINICAL HISTORY: R10.9 [...] electronically signed by: Candelario Gabriel MD on ?? 01/07/2025 23:35:26 ? Dictated By: ?Candelario Gabriel MD ? Signed By: ?<Electronically signed by Candelario Gabriel MD in OV> ? 01/07/256 ? DD/ 2335 ? TD/TT: 01/07/25 2335 ? Mold Yard Worker: ? Procedure Note Donotuseinterpreter, Image - 01/07/2025 [facility] [address] [place] [address] Ultrasound Report Signed Patient: Maryann Tan AMR #: [id number] : 1970Acct:[id number] Age/Sex: 54 / FADM Date: 01/03/25 Loc: HO.US Attending Dr: Kushal Araya MD Ordering Physician: Kushal Araya MD Date of Service: 01/03/25 Procedure(s): US abdomen limited Accession Number(s): [id number] cc: Yanni,Cedric NICK; Kushal Araya MD CLINICAL HISTORY: R10.9 - [...] in OV> 01/07/252335 DD/ 34 TD/TT: 01/07/252334 Mold Yard Worker: [facility] External Provider IMG US PROCEDURES Edited Result - Final documented in this encounter Visit Diagnoses Not on filedocumented in this encounter Additional Health Concerns Assessment Noted Time PHQ-9 Depression Total Score: 0 02/20/20 24 10:24 AM EDT documented as of this encounter Care Teams Leadership Intern Relationship Specialty Start Date End Date Name, MD Cedric [address] [place] [address] PCP - General Family Medicine 04/06/16 documented as of this encounter
[2025-02-05 16:32] LABS: Hemoglobin 11.8 g/dl (12.0-16.0); Mean Corpuscular HGB Conc 33.1 g/dl (31.0-35.0); SCAN SMEAR FLAG 1
[2025-02-05 16:34] LABS: Basophils Absolute Auto 0.1 X10*3/uL (0.0-0.2); Basophils Percent Auto 1.6 % (0-2); Eosinophils Absolute Auto 0.1 X10*3/uL (0.0-0.4); Eosinophils Percent Auto 1.6 % (0-4); Hematocrit 35.6 % (37.0-47.0); Imm Gran Abs Auto 0.03 X10*3/uL (0.00-0.03); Imm Gran Pct Auto 0.5 % (0.0-0.4); Lymphocytes Absolute Auto 2.5 X10*3/uL (1.2-4.9); Lymphocytes Percent Auto 38.5 % (20-40); MANUAL DIFF FLAG SCAN; Mean Corpuscular Hemoglobin 28.6 pg (27.0-33.0); Mean Corpuscular Volume 86.4 fL (80.0-98.0); Monocytes Absolute Auto 0.5 X10*3/uL (0.1-1.2); Monocytes Percent Auto 7.8 % (2-11); Neutrophils Absolute Auto 3.2 x10*3/uL (2.0-8.3); Platelet Count 172 X10*3/uL (160-400); Red Blood Count 4.12 X10*6/uL (4.20-5.50); Red Cell Distribution Width 13.1 % (11.0-16.0); White Blood Count 6.4 X10*3/uL (4.8-10.8)
[2025-02-05 16:38] LABS: PLT ABN DIST 1
[2025-02-05 16:59] LABS: Uric Acid 6.8 mg/dL (2.4-5.7)
[2025-02-05 17:00] LABS: SLIDE REVIEW VERIFIED
[2025-02-05 17:05] LABS: Blood Urea Nitrogen 14 mg/dL (9-16); Estimated Glomerular Filt Rate > 60
[2025-02-05 17:11] LABS: Vitamin D 25-OH Total 54.6 ng/mL (>30)
== END 2025-02-05 13:12 | disposition home or self-care (01) ==
LOC: HO.HHCX 13:11
PROVIDERS: Emergency Medicine; Visit Provider Internal Medicine
DX: M25.561 Pain in right knee (principal); E03.9 Hypothyroidism, unspecified; N13.30 Unspecified hydronephrosis
CPT/HCPCS: 36415; 73564; 82306; 82565; 84520; 84550; 85025

== ENCOUNTER → 2025-02-05 13:11 | Outpatient (BNV) | payer OTHER, SELFPAY | PROVIDERS: Visit Provider Radiology Diagnostic Radiology | DX: M25.561 Pain in right knee (principal) | CPT/HCPCS: 73564 ==

== ENCOUNTER 2025-02-18 10:44 | Outpatient (AMB) | payer OTHER, SELFPAY ==
--- NOTE | 2025-02-18 10:53 | A.OFFVIS_ITS ---
Vital Signs 02/18/25 10:56 Height 5 ft 6 in Weight 134 lb BMI 21.6 BP 134/68 Blood Pressure Location Rt brachial Position Sitting Pulse 68 Intake Visit Reasons: ultrasound results, following periumbilical pain Intake Note: Patient here to discuss abdomen US results. Abd US: 01-03-2025 Patient c/o: reports umbilical pain where hernia surgery done. HX: open ventral incisional hernia repair with Bard mesh~ 05-31-2024 Accompanied by: Self / Same As Patient Allergies ceftriaxone Allergy (Severe, Verified 02/18/25 10:55) Anaphylaxis Iodinated Contrast Media [IV Contrast Dye] Allergy (Severe, Verified 02/18/25 10:55) Anaphylaxis magnesium hydroxide [From Milk of Magnesia] Allergy (Intermediate, Verified 02/18/25 10:55) Rash HPI Comments Details: Patient presents for follow-up status post abdominal ultrasound, which was negative. Patient was tolerating her diet. He is having regular bowel habits. She has some pinching kind of symptoms to the right of her umbilicus of the abdominal wall. No other GI issues or complaints. PFSH Medical History Hemorrhoids with complication Endometrial hyperplasia Heartburn GERD (gastroesophageal reflux disease) Skin lesion of back Kidney stone Vitamin D deficiency Hypothyroidism Surgical History Hx of ventral hernia repair (05/31/24) Hx of unilateral oophorectomy History of surgery Tubal ligation status Hx of colonoscopy Hx of esophagogastroduodenoscopy Family History Father Hypertension Respiratory failure Mother Pancreatic cancer Social History Household Members: Spouse Housing: Apartment Are you a primary primary care nurse to a significant other at home: No Do you presently have visiting nurse or other home services: No Alcohol intake: never Patient Tobacco Use Status: Never used Tobacco Second Hand Smoke Exposure: No service: No Current occupational status: employed Current occupation: [employer] Sexual orientation: Straight/Heterosexual Gender identity: Female Female Reproductive History Menstrual Age of Menarche: 16 Physical Exam Vital Signs: Last Vital Signs Pulse 68 02/18/25 10:56 BP 134/68 02/18/25 10:56 BMI result Body Mass Index 21.6 GI Other: Abdomen is soft, benign. Assessment & Plan Assessment & Plan (1) Abdominal wall pain: Code(s): R10.9 - Unspecified abdominal pain Category: Surgical Plan Patient was reassured. No acute surgical issues at this time. Patient was should otherwise slowly but steadily increase her activity level. All questions answered. She will follow up p.r.n.. Coding Level of Care Code Est Pt Level 4 (25898) Diagnoses Abdominal wall pain R10.9
[2025-02-18 10:56] VITALS: BP 134/68; PULSE 68; BMI 21.6
--- OUTSIDE RECORDS SUMMARY | 2025-02-18 12:43 | XMS_ITS | Encounter Summary ---
Author Organization [employer] Address [address] [facility] 7t [place] [address] Care Team Providers Care Corporate Relations Director Name Role Phone Name, Cedric NICK Primary Care Provider [phone] Encounter Details Date Type Department Care Team (Late st Contact Info) Description 04/25/2023 Abstract [facility] MEDICINE [address] [place] [address] [phone] Name, MD Cedric [address] [place] [id number] Social History Tobacco Use Types Packs/Day Years [...] Description 03/12/2025 10:45 AM EDT Office Visit [facility] MEDICINE [address] [place] [address] [phone] Name, MD Cedric [address] [place] [address] 07/16/2025 3:00 PM EDT Office Visit [facility] ADULT DENTAL [address] [place] [address] Iza Dial [address] [place] [address] documented as of this encounter Procedures Procedure [...] EDT Recommended 5 year follow [place] ( [facility] Historical Provider HEALTH MAINTENANCE Final Result documented in this encounter Visit Diagnoses Not on filedocumented in this encounter Additional Health Concerns Assessment Noted Time PHQ-9 Depression Total Score: 0 11/19/19 23 1:50 PM EST documented as of this encounter Care Teams Corporate Relations Director Relationship Specialty Start Date End Date Name, MD Cedric [address] [place] [address] PCP - General Family Medicine 04/06/16 documented as of this encounter
--- OUTSIDE RECORDS SUMMARY | 2025-02-18 12:43 | XMS_ITS | Encounter Summary ---
Author Organization [employer] Address [address] [facility] [address] 7[address] [place] [address] Care Team Providers Care Wine Merchant Name Role Phone Name, Cedric NICK Primary Care Provider [phone] Encounter Details Date Type Department Care Team ([facility] st Contact Info) Description 09/23/2023 Orders Only [facility] MEDICINE [address] [place], [place] [phone] Name, MD Cedric [address] [place] [address] Social History Tobacco Use Types Packs/Day Years [...] Description 03/12/2025 10:45 AM EDT Office Visit [facility] MEDICINE [address] [place] [address] Name, MD Cedric [address] [place] [address] 07/16/2025 3:00 PM EDT Office Visit [facility] ADULT DENTAL [address] [place] [address] Jayro, Iza [address] [place] [address] documented as of this encounter Visit Diagnoses Not on filedocumented in this encounter Additional Health Concerns Assessment Noted Time PHQ-9 Depression Total Score: 0 11/19/19 23 1:50 PM EST documented as of this encounter Care Teams Wine Merchant Relationship Specialty Start Date End Date Name, MD Cedric [address] [place] [id number] PCP - General Family Medicine 04/06/16 documented as of this encounter
--- OUTSIDE RECORDS SUMMARY | 2025-02-18 12:43 | XMS_ITS | Encounter Summary ---
Author Organization [employer] Address [address] [facility] [address] [place] [address] Care Team Providers Care Internet Designer Name Role Phone Name, Cedric NICK Primary Care Provider [phone] Reason for Visit * Reason Comments Med Refill Encounter Details Date Type Department Care Team ([facility] st Contact Info) Description 02/18/2025 Refill [facility] [address] [place] [address] [phone] Name, MD Cedric [address] [place] [phone] Acquired hypothyroidism Social History Tobacco Use Types Packs/Day Years [...] enough money to get more: Never True 04/ 06/2024 Transportation Answer Date Recorded In the [...] 03/12/2025 10:45 AM EDT Office Visit [facility] MEDICINE [address] [place] [phone] Name, MD Cedric [address] [place] [phone] 07/16/2025 3:00 PM EDT Office Visit [facility] ADULT DENTAL [address] [place] [address] Iza Dial [address] [place] [address] documented as of this encounter Visit Diagnoses Diagnosis Acquired hypothyroidism Unspecified hypothyroidism documented in this encounter Additional Health Concerns Assessment Noted Time PHQ-9 Depression Total Score: 0 02/20/20 24 10:24 AM EDT documented as of this encounter Care Teams Internet Designer Relationship Specialty Start Date End Date NameCedric MD [address] [place] [id number] PCP - General Family Medicine 04/06/16 documented as of this encounter
--- OUTSIDE RECORDS SUMMARY | 2025-02-18 12:43 | XMS_ITS | Encounter Summary ---
Author Organization [facility] Address [address] [facility] [address] [place] [address] Phone Care Team Providers Care Stone Crusher Operator Name Role Phone Name, Cedric NICK Primary Care Provider [phone] Encounter Details Date Type Department Care Team (Late Contact Info) Description 02/02/2022 Telephone [facility] [address] [facility] [address] [place] [address] Jasiel Oliver, [address] [address] Social History Tobacco Use Types Packs/Day Years [...] send to Dr Liao. Thank you FAX# [phone] documented in this encounter Plan of Treatment Upcoming Encounters Date Type Department Care Team (Late Contact Info) Description 09/23/2025 10:00 AM EST Office Visit [facility] [address] [phone] Buddy Ortiz MD [address] [address] documented as of this encounter Visit Diagnoses Not on filedocumented in this encounter Care Teams Stone Crusher Operator Relationship Specialty Start Date End Date Name, MD Cedric [address] [place] [address] PCP - General Internal Medicine 02/02/22 documented as of this encounter
--- OUTSIDE RECORDS SUMMARY | 2025-02-18 12:43 | XMS_ITS | Clinical Summary ---
Author Organization [facility] Address [address] [facility] [address] [place] [address] Phone Care Team Providers Care Farmworker Cranberry Name Role Phone Name, Cedric NICK Primary Care Provider [phone] Allergies Active Allergy Reactions Criticality Noted Date [...] each day 09/30/2021 Active Deep Sea Nasal [facility] 0.65 % nasal spray 11/04/2021 Active polyethylene [...] Visit [facility] [address] [address] Buddy Ortiz MD [address] [address] Health Maintenance Due Date Last [...] 3-dose series) 07/27/2023 03/29/2023, 01/24/2023 Influenza Vaccine (Season Ended) 2025 09/11/2021, 09/16/2020, 08/09/2018, Additional history exists Insurance [employer] [facility] ([id number]) [employer] [facility] ([id number]) Care Teams Farmworker Cranberry Relationship Specialty Start Date End Date Name, MD Cedric [address] [place] [phone] PCP - General Internal Medicine 02/02/22
--- OUTSIDE RECORDS SUMMARY | 2025-02-18 12:43 | XMS_ITS | Encounter Summary ---
Author Organization [facility] Address [address] [facility] 7t [place] [address] Care Team Providers Care Acquisitions Assistant Name Role Phone NameCedric MD Primary Care Provider [phone] Encounter Details Date Type Department Care Team (Latest Contact Info) Description 04/01/2022 Abstract [facility] CONVERSIONS Dental, Provider, DDS Social History [...] Description 03/12/2025 10:45 AM EDT Office Visit [facility] MEDICINE [address] [place] [address] Cedric Liao MD [address] [place] [address] 07/16/2025 3:00 PM EDT Office Visit [facility] ADULT DENTAL [address] [place] [address] Josh Dialaris [address] [place] [address] documented as of this encounter Visit Diagnoses Not on filedocumented in this encounter Care Teams Acquisitions Assistant Relationship Specialty Start Date End Date NameCedric MD [address] [place] [address] PCP - General Family Medicine 04/06/16 documented as of this encounter
--- OUTSIDE RECORDS SUMMARY | 2025-02-18 12:43 | XMS_ITS | Clinical Summary ---
Author Organization [employer] Address [address] [facility] [address] [place] [address] Care Team Providers Care Topper Packer Name Role Phone Name, Cedric NICK Primary Care Provider [phone] Allergies Active Allergy Reactions Criticality Noted Date [...] IN WATER AND TAKE ONCE DIRECTED BY [facility] 05/31/20 23 Active Acetaminophen [...] onet of right knee pain. Seen at [facility] 02/02/2025. Work up included a RLE [...] Encounters Date Type Department Care Team Description 02/18/2025 Refill [facility] [address] [place] [phone] Name, MD Cedric Acquired hypothyroidism 02/06/2025 Telephone [facility] [address] [place] [phone] Amber David RN Results 02/05/2025 1:00 PM EDT Office Visit [facility] [address] [place] [address] Sebas Rajan MD Acute pain of right knee (Primary Dx) 02/05/2025 Orders Only [facility] [address] [place] [phone] Sebas Rajan MD 01/29/2025 Telephone [facility] [address] [facility] [place] [phone] Josh Dialaris 01/03/2025 Orders Only [facility] External Provider, [facility] 12/14/2024 9:00 AM EST Office Visit [facility] [address] [facility] [place] [address] Alonso Robles MD Seborrheic keratosis (Primary Dx) [...] Description 03/12/2025 10:45 AM EDT Office Visit [facility] [address] [place] [address] Name, MD Cedric [address] [place] [address] 07/16/2025 3:00 PM EDT Office Visit [facility] [address] [place] [address] Iza Dial [address] [place] [address] Health Maintenance Due Date Last Done Comments CT Colonography 1968 FIT DNA/Cologuard 1968 FIT 1968 FOBT 1968 Sigmoidoscopy 1968 Alcohol/Substance Use Screening 1980 Pneumococcal Vaccine: 50+ Years (1 of 1 - PCV) 2018 COVID-19 Vaccine (3 - 2023- season) 2024 04/21/2021, 03/24/2021 Influenza [...] Tobacco Screening 08/06/2025 08/06/2024 Mammogram 05/25/2026 05/25/2024, 07, 04/19/2023, Additional history exists DTaP/Tdap/Td Vaccines (2 [...] Procedure Name Priority Date/Time Associated Diagnosis Comments CREATININE, SERUM Routine 02/05/2025 1:3 7 PM EDT UREA NITROGEN (BUN) Routine 02/05/2025 1 :37 PM EDT SLIDE REVIEW Routine 02/05/2025 1:37 PM EDT URIC ACID Routine 02/05/2025 1:37 PM EDT Acute pain of right knee CBC WITH AUTO DIFFERENTIAL Routine 02/05/2025 1:37 PM EDT Acute pain of right knee VITAMIN D,25-OH,TOTAL,IA Routine 02/05/2025 1:37 PM EDT Acquired hypothyroidism XR KNEE 4+ VIEWS RIGHT Routine 02/05/2025 1:11 PM EDT Acute pain of right knee US VENOUS DUPLEX LE RT Routine 02/02/2025 [...] Recently Relevant to Health Maintenance Results * Slide Review (02/05/2025 1:37 PM EDT) Slide Review VERIFIED [facility] 02/05/2025 1:37 PM EDT 02/05/2025 4:24 PM EDT us Sebas Henry MD LAB BLOOD ORDERABLES Final Result [facility] [address] [place] [phone] * Vitamin D, 25-Hydroxy, Total, Immunoassay (02/05/2025 1:37 PM EDT) Vitamin D 25-OH Total 54.6 >30 ng/mL [facility] Comment: Health Based Reference Values*< 20 ??ng/mL ??Kjcqiklgp63-83 ng/mL ??Insufficient> 30 ??ng/mL ??Sufficient*Deneen JUAREZ. N Engl J Med. 2007;357:266-280There is no well-established upper level of normal vitamin Dlevels. Some laboratories use 50 ng/mL as an upper limit ofnormal. However, toxicity is patient-dependent and may occurat any level. Careful correlation with the patient'spresentation is necessary and, if there is concern forvitamin D toxicity, treatment should be consideredirrespective of the serum level.Care must be taken in interpreting Vitamin D results fromdifferent laboratories and methodologies. ??Published datademonstrated that results from patients undergoinghemodialysis may show a negative bias when tested withvarious automated 25-OH vitamin D assays when compared toLC- MS/MS.When testing samples from patients whose predominant form ofVitamin D is Vitamin D2, such as patients receiving VitaminD2 supplementation, results that are subtherapeutic shouldbe confirmed with another method such as LC-MS/MS. Blood 02/05/2025 1:37 PM EDT 02/05/2025 4:24 PM EDT Jesus Mary MD LAB BLOOD ORDERABLES Final Resul t Performing Organization Address [facility] Co de Phone Number [facility] [address] [place] [phone] * Creatinine, Serum (02/05/2025 1:37 PM EDT) Pathologist [facility] Creatinine, Serum 0.74 0.5 - 1.4 mg/dL [facility] Estimated Glomerular Filt Rate >60 [facility] Comment:Chronic Kidney Disea se: Estimated GFR < 60 mL/min/1.93g0Dsdwfl Kidney Disease: Estimated GFR < 15 mL/min/1.73m2 02/05/2025 1:37 PM EDT 02/05/2025 4:24 PM EDT us Generic External Data Provider LAB BLOOD ORDERAB LES Final Result Performing Organization Address [facility] Co de Phone Number [facility] [address] [place] [phone] * (ABNORMAL) CBC auto differential (02/05/2025 1:37 PM EDT) White Blood Count 6.4 4.8 - 10.8 X10*3/uL [facility] Red Blood Count 4.12(L) 4.20 - 5.50 X10*6/uL [facility] Hemoglobin 11.8(L) 12.0 - 16.0 g/dl [facility] Hematocrit 35.6(L) 37.0 - 47.0 % [facility] Mean Corpuscular Volume 86.4 80.0 - 98.0 fL [facility] Mean Corpuscular Hemoglobin 28.6 27.0 - 33.0 pg [facility] Mean Corpuscular HGB Conc 33.1 31.0 - 35.0 g/dl [facility] Red Cell Distribution Width 13.1 11.0 - 16.0 % [facility] Platelet Count 172 160 - 400 X10*3/uL [facility] Mean Platelet Volume 13.0(H) 9.4 - 12.3 fL [facility] Neutrophils Percent Auto 50.0 45 - 73 % [facility] Imm Gran Pct Auto 0.5(H) 0.0 - 0.4 % [facility] Lymphocytes Percent Auto 38.5 20 - 40 % [facility] Monocytes Percent Auto 7.8 2 - 11 % [facility] Eosinophils Percent Auto 1.6 0 - 4 % [facility] Basophils Percent Auto 1.6 0 - 2 % [facility] NRBC Pct Auto 0.0 0.0 - 0.2 /100WBC [facility] Neutrophils Absolute Auto 3.2 2.0 - 8.3 x10*3/uL [facility] Imm Gran Abs Auto 0.03 0.00 - 0.03 X10*3/uL [facility] Lymphocytes Absolute Auto 2.5 1.2 - 4.9 X10*3/uL [facility] Monocytes Absolute Auto 0.5 0.1 - 1.2 X10*3/uL [facility] Eosinophils Absolute Auto 0.1 0.0 - 0.4 X10*3/uL [facility] Basophils Absolute Auto 0.1 0.0 - 0.2 X10*3/uL [facility] NRBC Abs Auto 0.000 0.0 - 0.012 X10*3/uL [facility] Blood Venous blood specimen / Unknown 02/05/2025 1:37 PM EDT 02/05/2025 4:24 PM EDT us Sebas Henry MD LAB BLOOD ORDERABLES Edited Result - Final Performing Organization Address [facility] Co de Phone Number [facility] [address] [place] [phone] * (ABNORMAL) Uric acid (02/05/2025 1:37 PM EDT) Uric Acid 6.8(H) 2.4 - 5.7 mg/dL [facility] Blood Venous blood specimen / Unknown 02/05/2025 1:37 PM EDT 02/05/2025 4:24 PM EDT us Sebas Henry MD LAB BLOOD ORDERABLES Final Result Performing Organization Address [facility] de Phone Number [facility] [address] [place] [phone] * BUN (Blood Urea Nitrogen) (02/05/2025 1:37 PM EDT) Urea Nitrogen (BUN) 14 9 - 16 mg/dL [facility] 02/05/2025 1:37 PM EDT 02/05/2025 4:24 PM EDT us Generic External Data Provider LAB BLOOD ORDERAB LES Final Result Performing Organization Address [facility] Co de Phone Number [facility] [address] [place] [phone] * XR Knee 4+ Views Right (02/05/2025 1:11 PM EDT) Anatomical Region Laterality Modality Lower Extremities, Knee Right Radiogra phic Imaging 02/05/2025 1:11 PM EDT Narrative 02/05/2025 1:40 PM EDT ?[place] [facility] ?[address] ?[place] [address] ?XRay Report ? Signed ? Patient: Suraj Ruelas,Maryann A ?MR ?? #: [id number] ? : 1970 ?Acct:[id number] ? Age/Sex: 54 / F ?ADM Date: 02/05/25 ? Loc: HO.HHCX ? Attending Dr: Sebas Felix MD ? Ordering Physician: Sebas Felix MD ?? Date of Service: 02/05/25 ?? Procedure(s): XR knee RT 4V ?? Accession Number(s): [id number] ? cc: Sebas Felix MD ? EXAMINATION: [...] ??Sarmad Alan MD ??02/05/2025 01:35 PM EDT ? Dictated By: ?Sarmad Alan MD ? Signed By: ?<Electronically signed by Sarmad Alan MD in OV> ?02/05/25 1335 ? DD/ 1311 ? TD/TT: 02/05/25 1320 ? Supervisor Cooler Service: ? Procedure Note Asha, Image - 02/05/[address] [address] XRay Report Signed Patient: Maryann Tan [facility]R #: [id number] : 1970Acct:[id number] Age/Sex: 54 / FADM Date: 02/05/25 Loc: HO.HHCX Attending Dr: Sebas Felix MD Ordering Physician: Sebas Felix MD Date of Service: 02/05/25 Procedure(s): XR knee RT 4V Accession Number(s): [id number] cc: Sebas Felix MD EXAMINATION: XR KNEE [...] 02/05/25 1335 DD/ 1311 TD/TT: 02/05/25 1320 Supervisor Cooler Service: us Sebas Henry MD IMG XR PROCEDURES Robi tawnya Result - Final * US VENOUS DUPLEX LE RT (02/02/2025 5:28 PM EDT) Anatomical Region Laterality Modality Abdomen Ultrasound 02/02/2025 5:28 PM EDT Narrative 02/02/2025 5:30 PM EDT ? [facility] ?[address] ?[place] [address] ? Ultrasound Report ? Signed ? Patient: Suraj Ruelas,Maryann A ?MR ?? #: [id number] ? : 1970 ?Acct:[id number] ? Age/Sex: 54 / F ?ADM Date: 03/22/25 ? Loc: HO.ED ? Attending Dr: ? Ordering Physician: Keysha Courtney CNP ?? Date of Service: 02/02/25 ?? Procedure(s): US venous duplex LE RT ?? Accession Number(s): [id number] ? cc: Keysha Courtney CNP; Name,Cedric NICK [...] DD/ 1728 ? TD/TT: 02/02/25 1728 ? Supervisor Cooler Service: ? Procedure Note Donbonnie, Image - 02/02/2025 [place] [address] Ultrasound Report Signed Patient: Maryann Tan AMR #: [id number] : 1970Acct:[id number] Age/Sex: 54 / FADM Date: 02/02/25 Loc: HO.ED Attending Dr: Ordering Physician: Keysha Courtney CNP Date of Service: 02/02/25 Procedure(s): US venous duplex LE RT Accession Number(s): [id number] cc: Keysha Courtney CNP; Name,Cedric NICK CLINICAL [...] in OV> 02/02/251728 DD/ 27 TD/TT: 02/02/251727 Supervisor Cooler Service: us [facility] External Provider IMG US PROCEDURES Edited Result - Final * US Abdomen Limited (01/07/2025 11:35 PM EST) Anatomical Region Laterality Modality Abdomen Ultrasound 01/07/2025 11:3 5 PM EST Narrative 01/07/2025 11:36 PM EST ? [facility] ?[address] ?[place] [address] ? Ultrasound Report ? Signed ? Patient: Ruelas Ruelas,Maryann A ?MR ?? #: [id number] ? : 1970 ?Acct:[id number] ? Age/Sex: 54 / F ?ADM Date: 01/03/25 ? Loc: HO.US ? Attending Dr: Kushal Araya MD ? Ordering Physician: Kushal Araya MD ?? Date of Service: 01/03/25 ?? Procedure(s): US abdomen limited ?? Accession Number(s): [id number] ? cc: Cedric Liao MD; Kushal Araya [...] by Candelario Gabriel MD in OV> ? 01/07/25 2336 ? DD/ ? TD/TT: 01/07/255 ? Supervisor Cooler Service: ? Procedure Note Molly Barry - 01/07/2025 [facility] [address] [place] [address] Ultrasound Report Signed Patient: Ruelas Maryann Ruelas [facility] #: [id number] : 1970Acct:[id number] Age/Sex: 54 / FADM Date: 01/03/25 Loc: HO.US Attending Dr: Kushal Araya MD Ordering Physician: Kushal Araya MD Date of Service: 01/03/25 Procedure(s): US abdomen limited Accession Number(s): [id number] cc: Yanni,Cedric NICK; Kushal Araya MD CLINICAL [...] signed by Candelario Gabriel MD in OV> 01/07/25 2336 DD/ 2335 TD/TT: 01/07/252334 Supervisor Cooler Service: [facility] External Provider IMG US PROCEDURES Edited Result - Final * Hepatitis C Antibody with Reflex to HCV, RNA, Quantitative, Real-Time PCR (10/03/2024 11:20 AM EST) Hepatitis C Antibody Nonreactive Nonreactive [facility] Comment:Antibodies to HCV no t detected; does not exclude early acuteHCV infection. Blood Venous blood specimen / Unknown 10/03/2024 11:20 AM EST 10/03/2024 1:16 PM EST Cedric Liao MD LAB BLOOD ORDERABLES Final Resul t [facility] [address] [place] [address] [phone] * HIV-1/2 Antigen and Antibodies, Fourth Generation, with Reflexes (10/03/2024 11:20 AM EST) HIV AB/AG Nonreactive Nonreactive [facility] Comment:HIV-1 p24 Ag and/or HIV-1/HIV-2 Ab not detected.A test result that is nonreactive does not exclude thepossibility of exposure to or infection with HIV-1 and/orHIV-2. Nonreactive results in this assay for individualswith prior exposure to HIV-1 and/or HIV-2 may be due toantigen and antibody levels that are below the limit ofdetection of this assay.The [employer] HIV Ag/Ab Combo assay result andsupplemental assay results should be interpreted inconjunction with the patient's clinical presentation,history and other laboratory results. If the results areinconsistent with clinical evidence, additional testing issuggested to confirm the result. Blood Venous blood specimen / Unknown 10/03/2024 11:20 AM EST 10/03/2024 1:16 PM EST us Cedric Liao MD LAB BLOOD ORDERABLES Final Resul t [facility] [address] [place] [phone] * BI Mammogram Screening Tomosynthesis Bilateral (05/25/2024 12:45 PM EDT) Anatomical Region Laterality Modality Breast Bilateral Mammography 05/25/2024 12:4 5 PM EDT Narrative 06/19/2024 9:18 PM EDT ? [facility] ? [address] ?[place] [address] ? Mammography Report ? Signed ? Patient: Maryann Tan ?MR ?? #: [id number] ? : 1970 ?Acct:[id number] ? Age/Sex: 54 / F ?ADM Date: 07/12/24 ? Loc: HO.MAMMO ? Attending Dr: Cedric Liao MD ? Ordering Physician: Cedric Liao MD ?Results: 0Incomplet ?? e: Needs Additional Imaging Evaluation ? Date of Service: 05/25/24 ?Follow Up: Additional Imagi ?? ng ? Procedure(s): MM tomosynthesis screening BI ?? Accession Number(s): [id number] ? cc: Yanni,Cedric NICK ? EXAMINATION: ?? [...] 06/19/242101 ? DD/ 1245 ? TD/TT: ? Supervisor Cooler Service: ? Procedure Note Molly Barry - 06/19/2024 [facility] [address] [place] [address] Mammography Report Signed Patient: Maryann Tan AMR #: [id number] : 1970Acct:[id number] Age/Sex: 54 / FADM Date: 05/25/24 Loc: HO.MAMMO Attending Dr: Cedric iLao MD Ordering Physician: Cedric Liaoults: 0Incomplet e: Needs Additional Imaging Evaluation Date of Service: 05/25/24Follow Up: Additional Imagi ng Procedure(s): MM tomosynthesis screening BI Accession Number(s): [id number] cc: Cedric Liao MD EXAMINATION: MM SCREENING [...] in OV> 06/19/24 2102 DD/ 1245 TD/TT: Supervisor Cooler Service: us Cedric Liao MD IMG BI PROCEDURES Edited Result - Final * (ABNORMAL) Colonoscopy (07/21/2023) Colonoscopy Abnormal(A ) Normal Result Nader Liao MD HEALTH MAINTENANCE Final Result * Pap Smear (12/24/2019) Pap Negative for intraephithelial lesion or malignancy Negative for intraephithelial lesion or malignancy, Other HPV Undetected 12/24/2019 [place] Provider HEALTH MAINTENANCE Final Result from Last 3 Months or Most Recently Relevant [place] [address] [facility] - [facility] PARTIAL (MEDICA[place]) [place] [id number] [place] [address] Care Teams Topper Packer Relationship Specialty Start Date End Date Name, MD Cedric [address] [place] [address] PCP - General Family Medicine 04/06/16
== END 2025-02-18 11:06 | disposition home or self-care (01) ==
LOC: HO.HGS 10:45
PROVIDERS: Visit Provider Surgery
DX: R10.9 Unspecified abdominal pain (principal)
CPT/HCPCS: 99214

== ENCOUNTER → 2025-02-18 10:44 | Outpatient (BNVA) | payer OTHER, SELFPAY | PROVIDERS: Visit Provider Surgery | DX: R10.9 Unspecified abdominal pain (principal) | CPT/HCPCS: 99212 ==

== ENCOUNTER 2025-03-12 11:15 | Outpatient (REF) | payer OTHER, SELFPAY ==
--- OUTSIDE RECORDS SUMMARY | 2025-03-12 13:14 | XMS_ITS | Clinical Summary ---
Author Organization [employer] Address [address] [facility] [address] [place] [address] Care Team Providers Care Cnc Field Service Engineer Name Role Phone Name, Cedric NICK Primary Care Provider [phone] Allergies Active Allergy Reactions Criticality Noted Date Comments Ceftriaxone Anaphylaxis High 09/23/2023 Iodinated Contrast Media Shortness of breath,Anaphylaxis High 01/11/2023 Lactose Diarrhea Low 11/18/2022 Whole milk Magnesium Hydroxide Rash High 05/25/2024 Medications Bisacodyl EC 5 MG EC tablet TAKE 2 TABLETS BY MOUTH AT BEDTIME 022 Active Vitamin D High Potency 25 MCG (1000 UT) capsule TAKE 1 CAPSULE BY MOUTH ONCE DAILY 022 Active lisinopril 10 MG tablet TAKE 1 TABLET BY MOUTH ONCE DAILY 022 Active docusate sodium (Colace) 100 MG capsule TAKE 1 CAPSULE BY MOUTH AT BEDTIME 023 Active Procto-Med HC 2.5 % rectal creamIndications :Diverticulitis of large intestine without perforation or abscess without bleeding APPLY RECTALLY 2-4 TIMES PER DAY NEEDED FOR HEMORRHOIDS 30 g 2 023 Active polyethylene glycol, PEG, 3350 (Glycolax) 17 GM/SCOOP powder MIX 238 GRAM IN WATER AND TAKE ONCE DIRECTED BY [facility] GI DEPT 023 Active Acetaminophen Extra Strength 500 MG tabletIndication s:Acquired hypothyroidism TAKE 2 TABLETS BY MOUTH EVERY 8 HOURS NEEDED fevor OR FOR PAIN 90 tablet 024 Active omeprazole (PriLOSEC) [address] capsule Take 1 capsule by mouth Once per day. Active meloxicam (Mobic) 15 MG tabletIndication s:Acute pain of right knee Take 1 tablet (15 mg) by mouth Once per day. 30 tablet 11 025 2025 Active levothyroxine (Synthroid, Levoxyl) 75 MCG tabletIndication s:Acquired hypothyroidism TAKE 1 TABLET BY MOUTH EVERY DAY BEFORE BREAKFAST 90 tablet 1 Active fluticasone (Flonase) 50 MCG/ACT nasal sprayIndications :Seasonal allergic rhinitis, unspecified trigger Administer 2 sprays into each nostril Once per day. Shake gently. Before first use, prime pump. After use, clean tip and replace cap. 16 g 2 2025 Active cetirizine (ZyrTEC) 10 MG tablet Take 1 tablet (10 mg) by mouth Once per day. 30 tablet 2 025 2024 Active empagliflozin (Jardiance) 10 MG Take 1 tablet (10 mg) by mouth Once per day. 025 2025 Active levothyroxine (Synthroid, Levoxyl) 75 MCG tabletIndication s:Acquired hypothyroidism Take 1 tablet (75 mcg) by mouth See administration instructions. Use Tuesday to Tuesday and skip weekends 024 2024 Discontinued loratadine (Claritin) 10 MG tabletIndication s:Seasonal allergic rhinitis, unspecified trigger Take 1 tablet (10 mg) by mouth Once per day. 30 tablet 11 025 2024 Discontinued(T herapy completed) Active Problems Problem Noted Date Diagnosed Date Acute pain of right knee 02/05/2025 Assessment & Plan (02/05/2025 1:05 PM EDT): Patient of Name here with c/o new onet of right knee pain. Seen at [facility] ER 02/02/2025. Work up [...] Encounters Date Type Department Care Team Description 03/12/2025 10:45 AM EDT Office Visit [facility] [address] [place] [phone] Cedric Liao MD Osteoarthritis of right knee, unspecified osteoarthritis type (Primary Dx); Seasonal allergic rhinitis, unspecified trigger; Acquired hypothyroidism; High cholesterol; Proteinuria, unspecified type 03/12/2025 Travel 03/11/2025 Telephone [facility] [address] [place] [phone] Cedric Liao MD Chart Prep 02/18/2025 Refill [facility] WALK-IN [address] [address] Cedric Liao MD Acquired hypothyroidism 02/06/[address] [address] Amber David, RN Results 02/05/2025 1:00 PM EDT Office Visit [facility] WALKIN [address] [address] Sebas Rajan MD Acute pain of right knee (Primary Dx) 02/05/2025 Orders Only [facility] [address] [place] [phone] Sebas Rajan MD 01/29/2025 Telephone [facility] ADULT DENTAL [address] [place] [address] Iza Dial 01/03/2025 Orders Only [facility] External Provider, [facility] 12/14/2024 9:00 AM EST Office Visit [address] [address] Alonso Robles MD Seborrheic keratosis (Primary Dx) [...] Sign Reading Time Taken Comments Blood Pressure 125/84 03/12/2025 10:36 AM EDT Pulse 91 03/12/2025 10:36 AM EDT Temperature 35.8 ??C (96.5 ??F) 03/12/2025 10:36 AM E DT Respiratory Rate 16 03/12/2025 10:36 AM EDT Oxygen Saturation 98% 03/12/2025 10:36 AM EDT Inhaled Oxygen Concentration - - Weight 63.7 kg (140 lb 6.4 oz) 03/12/2025 10:36 AM EDT Height 154.9 cm (5' 1 ) 02/05/2025 12:45 PM EDT Body Mass Index 26.53 02/05/2025 12:45 PM EDT Plan of Treatment Upcoming Encounters Date Type Department Care Team (Late st Contact Info) Description 09/18/2025 3:00 PM EST Office Visit [facility] ADULT DENTAL [address] [place] [address] Jayro, Iza [address] [place] [address] Health Maintenance Due Date Last Done Comments CT Colonography 1968 FIT DNA/Cologuard 1968 FIT 1968 FOBT 1968 Sigmoidoscopy 1968 Alcohol/Substance Use Screening 1980 Pneumococcal Vaccine: 50+ Years (1 of 1 - PCV) 2018 COVID-19 Vaccine ( season) 2024 04/21/2021, 03/24/2021 [...] (02/05/2025 1:37 PM EDT) Slide Review VERIFIED [facility] 02/05/2025 1:37 PM EDT 02/05/2025 4:24 PM EDT us Sebas Henry MD LAB BLOOD ORDERABLES Final Result Performing Organization Address [facility] Co de Phone Number [facility] [address] [place] [phone] * Vitamin D, 25-Hydroxy, Total, Immunoassay (02/05/2025 1:37 PM EDT) Vitamin D 25-OH Total 54.6 >30 ng/mL [facility] Comment: Health Based Reference Values*< 20 ??ng/mL ??Qzytcyzxq57-03 ng/mL ??Insufficient> 30 ??ng/mL ??Sufficient*Deneen JUAREZ. N [...] PM EDT 02/05/2025 4:24 PM EDT us Jesus Mary MD LAB BLOOD ORDERABLES Final Resul t Performing Organization Address [facility] Co de Phone Number [facility] [address] [place] [phone] [phone] * Creatinine, Serum (02/05/2025 1:37 PM EDT) Pathologist [facility] Creatinine, Serum 0.74 0.5 - 1.4 mg/dL [facility] Estimated Glomerular Filt Rate >60 [facility] Comment:Chronic Kidney Disea se: Estimated GFR < 60 mL/min/1.61f9Vmlnue Kidney Disease: Estimated GFR < 15 mL/min/1.73m2 02/05/2025 1:37 PM EDT 02/05/2025 4:24 PM EDT us Generic External Data Provider LAB BLOOD ORDERAB LES Final Result [facility] [address] [place] [phone] * (ABNORMAL) CBC auto differential (02/05/2025 1:37 PM EDT) Pathologist [facility] White Blood Count 6.4 4.8 - 10.8 X10*3/uL [facility] Red Blood Count 4.12(L) 4.20 - 5.50 X10*6/uL [facility] Hemoglobin 11.8(L) 12.0 - 16.0 g/dl [facility] Hematocrit 35.6(L) 37.0 - 47.0 % [facility] Mean Corpuscular Volume 86.4 80.0 - 98.0 fL [facility] Mean Corpuscular Hemoglobin 28.6 27.0 - 33.0 pg [facility] Mean Corpuscular HGB Conc 33.1 31.0 - 35.0 g/dl [facility] Red Cell Distribution Width 13.1 11.0 - 16.0 % [facility] Platelet Count 172 160 - 400 X10*3/uL [facility] Mean Platelet Volume 13.0(H) 9.4 - 12.3 fL [facility] Neutrophils Percent Auto 50.0 45 - 73 % [facility] Imm Gran Pct Auto 0.5(H) 0.0 - 0.4 % [facility] Lymphocytes Percent Auto 38.5 20 - 40 % [facility] Monocytes Percent Auto 7.8 2 - 11 % [facility] Eosinophils Percent Auto 1.6 0 - 4 % [facility] Basophils Percent Auto 1.6 0 - 2 % [facility] NRBC Pct Auto 0.0 0.0 - 0.2 /100WBC [facility] Neutrophils Absolute Auto 3.2 2.0 - 8.3 x10*3/uL [facility] Imm Gran Abs Auto 0.03 0.00 - 0.03 X10*3/uL [facility] Lymphocytes Absolute Auto 2.5 1.2 - 4.9 X10*3/uL [facility] Monocytes Absolute Auto 0.5 0.1 - 1.2 X10*3/uL [facility] Eosinophils Absolute Auto 0.1 0.0 - 0.4 X10*3/uL [facility] Basophils Absolute Auto 0.1 0.0 - 0.2 X10*3/uL [facility] NRBC Abs Auto 0.000 0.0 - 0.012 X10*3/uL [facility] Blood Venous blood specimen / Unknown 02/05/2025 1:37 PM EDT 02/05/2025 4:24 PM EDT Sebas Henry MD LAB BLOOD ORDERABLES Edited Result - Final [facility] [address] [place] [phone] * (ABNORMAL) Uric acid (02/05/2025 1:37 PM EDT) Uric Acid 6.8(H) 2.4 - 5.7 mg/dL [facility] Blood Venous blood specimen / Unknown 02/05/2025 1:37 PM EDT 02/05/2025 4:24 PM EDT Sebas Henry MD LAB BLOOD ORDERABLES Final Result Performing Organization Address [facility] Co de Phone Number [facility] [address] [place] [address] [phone] * BUN (Blood Urea Nitrogen) (02/05/2025 1:37 PM EDT) Urea Nitrogen (BUN) 14 9 - 16 mg/dL [facility] 02/05/2025 1:37 PM EDT 02/05/2025 4:24 PM EDT us Generic External Data Provider LAB BLOOD ORDERAB LES Final Result Performing Organization Address [facility] Co de Phone Number [facility] [address] [place], [place] [phone] * XR Knee 4+ Views Right (02/05/2025 1:11 PM EDT) Anatomical Region Laterality Modality Lower Extremities, Knee Right Radiogra phic Imaging 02/05/2025 1:11 PM EDT Narrative 02/05/2025 1:40 PM EDT ?[facility] ?[address] ?[place] [address] ?XRay Report ? Signed ? Patient: Susan Tanyolisquinton A ?MR ?? #: [id number] ? : 1970 ?Acct:[id number] ? Age/Sex: 54 / F ?ADM Date: 02/05/25 ? Loc: HO.HHCX ? Attending Dr: Sebas Felix MD ? Ordering Physician: Sebas Felix MD ?? Date of Service: 02/05/25 ?? Procedure(s): XR knee RT 4V ?? Accession Number(s): [id number] ? cc: Sebas Felix MD ? EXAMINATION: [...] DD/ 1311 ? TD/TT: 02/05/25 1320 ? Director Of Business Operations: ? Procedure Note Donleahter, Image - 02/05/[address] [address] XRay Report Signed Patient: Maryann Tan AMR #: [id number] : 1970Acct:[id number] Age/Sex: 54 / FADM Date: 02/05/25 Loc: HO.HHCX Attending Dr: Sebas Felix MD Ordering Physician: Sebas Felix MD Date of Service: 02/05/25 Procedure(s): XR knee RT 4V Accession Number(s): [id number] cc: Sebas Felix MD EXAMINATION: XR KNEE [...] 02/05/25 1335 DD/ 1311 TD/TT: 02/05/25 1320 Director Of Business Operations: us Sebas Henry MD IMG XR PROCEDURES Robi tawnya Result - Final * US VENOUS DUPLEX LE RT (02/02/2025 5:28 PM EDT) Anatomical Region Laterality Modality Abdomen Ultrasound 02/02/2025 5:28 PM EDT Narrative 02/02/2025 5:30 PM EDT ? [facility] ?[address] ?[place] [address] ? Ultrasound Report ? Signed ? Patient: Ruelas Maryann Ruelas ?MR ?? #: [id number] ? : 1970 ?Acct:[id number] ? Age/Sex: 54 / F ?ADM Date: 02/02/25 ? Loc: HO.ED ? Attending Dr: ? Ordering Physician: Keysha Courtney CNP ?? Date of Service: 02/02/25 ?? Procedure(s): US venous duplex LE RT ?? Accession Number(s): [id number] ? cc: Keysha Courtney CNP; Name,Cedric NICK [...] DD/ 1728 ? TD/TT: 02/02/25 1728 ? Director Of Business Operations: ? Procedure Note Asha, Molly - 02/02/[address] [address] Ultrasound Report Signed Patient: Maryann Tan AMR #: [id number] : 1970Acct:[id number] Age/Sex: 54 / FADM Date: 02/02/25 Loc: HO.ED Attending Dr: Ordering Physician: Keysha Courtney CNP Date of Service: 02/02/25 Procedure(s): US venous duplex LE RT Accession Number(s): [id number] cc: Keysha Courtney CNP; Name,Cedric NICK CLINICAL [...] by Enio Delatorre MD in OV> 02/02/25 1729 DD/ 1728 TD/TT: 02/02/25 1728 Director Of Business Operations: [facility] External Provider IMG US PROCEDURES Edited Result - Final * US Abdomen Limited (01/07/2025 11:35 PM EST) Anatomical Region Laterality Modality Abdomen Ultrasound 01/07/2025 11:3 5 PM EST Narrative 01/07/2025 11:36 PM EST ? [facility] ?[address] ?[place] [address] ? Ultrasound Report ? Signed ? Patient: Maryann Tan ?MR ?? #: [id number] ? : 1970 ?Acct:[id number] ? Age/Sex: 54 / F ?ADM Date: 02/20/25 ? Loc: HO.US ? Attending Dr: Kushal Araya MD ? Ordering Physician: Kushal Araya MD ?? Date of Service: 01/03/25 ?? Procedure(s): US abdomen limited ?? Accession Number(s): [id number] ? cc: Name,Cedric NICK; Kushal Araya MD ? CLINICAL HISTORY: [...] ? 01/07/25 2336 ? DD/ ? TD/TT: 01/07/252334 ? Director Of Business Operations: ? Procedure Note Asha, Molly - 01/07/2025 [place] [address] Ultrasound Report Signed Patient: Maryann Tan AMR #: [id number] : 1970Acct:[id number] Age/Sex: 54 / FADM Date: 01/03/25 Loc: HO.US Attending Dr: Kushal Araya MD Ordering Physician: Kushal Araya MD Date of Service: 01/03/25 Procedure(s): US abdomen limited Accession Number(s): [id number] cc: Cedric Liao MD; Kushal Araya MD [...] in OV> 01/07/252335 DD/ 34 TD/TT: 01/07/252334 Director Of Business Operations: [facility] External Provider IMG US PROCEDURES Edited Result - Final * Hepatitis C Antibody with Reflex to HCV, RNA, Quantitative, Real-Time PCR (10/03/2024 11:20 AM EST) Hepatitis C Antibody Nonreactive Nonreactive [facility] Comment:Antibodies to HCV no t detected; does not exclude early acuteHCV infection. Blood Venous blood specimen / Unknown 10/03/2024 11:20 AM EST 10/03/2024 1:16 PM EST Cedric Liao MD LAB BLOOD ORDERABLES Final Resul t [facility] [address] [place] [phone] * HIV-1/2 Antigen and Antibodies, Fourth Generation, with Reflexes (10/03/2024 11:20 AM EST) HIV AB/AG Nonreactive Nonreactive [facility] Comment:HIV-1 p24 Ag and/or HIV-1/HIV-2 Ab not detected.A test result that is nonreactive does not exclude thepossibility of exposure to or infection with HIV-1 and/orHIV-2. Nonreactive results in this assay for individualswith prior exposure to HIV-1 and/or HIV-2 may be due toantigen and antibody levels that are below the limit ofdetection of this assay.The [facility] HIV Ag/Ab Combo assay result andsupplemental assay results should be interpreted inconjunction with the patient's clinical presentation,history and other laboratory results. If the results areinconsistent with clinical evidence, additional testing issuggested to confirm the result. Blood Venous blood specimen / Unknown 10/03/2024 11:20 AM EST 10/03/2024 1:16 PM EST us Cedric Yanni NICK LAB BLOOD ORDERABLES Final Resul t [facility] [address] [facility] [place] [address] [phone] * BI Mammogram Screening Tomosynthesis Bilateral (05/25/2024 12:45 PM EDT) Anatomical Region Laterality Modality Breast Bilateral Mammography 05/25/2024 12:4 5 PM EDT Narrative 06/19/2024 9:18 PM EDT ? [facility] ? [address] ?[place] [address] ? Mammography Report ? Signed ? Patient: Maryann Tan A ?MR ?? #: [id number] ? : 1970 ?Acct:[id number] ? Age/Sex: 54 / F ?ADM Date: 05/25/ ? Loc: HO.MAMMO ? Attending Dr: Cedric Name MD ? Ordering Physician: Name,Cedric MD ?Results: 0Incomplet ?? e: Needs Additional Imaging Evaluation ? Date of Service: 05/25/ ?Follow Up: Additional Imagi ?? ng ? Procedure(s): MM tomosynthesis screening BI ?? Accession Number(s): [id number] ? cc: Name,Cedric NICK ? EXAMINATION: ?? [...] 06/19/242101 ? DD/ 1245 ? TD/TT: ? Director Of Business Operations: ? Procedure Note Donotuseinterpreter, Image - 06/19/2024 [facility] [address] [place] [address] [place] [address] Mammography Report Signed Patient: Maryann Tan AMR #: [id number] : 1970Acct:[id number] Age/Sex: 54 / FADM Date: 05/25/24 Loc: HO.MAMMO Attending Dr: Cedric Liao MD Ordering Physician: Cedric Liaoults: 0Incomplet e: Needs Additional Imaging Evaluation Date of Service: 05/25/24Follow Up: Additional Imagi ng Procedure(s): MM tomosynthesis screening BI Accession Number(s): [id number] cc: Cedric Liao MD EXAMINATION: MM SCREENING [...] in OV> 06/19/24 2102 DD/ 1245 TD/TT: Director Of Business Operations: Cedric Name IMG BI PROCEDURES Edited Result - Final * (ABNORMAL) Colonoscopy (07/21/2023) Colonoscopy Abnormal(A ) Normal Cedric Name HEALTH MAINTENANCE Final Result * Pap Smear (12/24/2019) Pap Negative for intraephithelial lesion or malignancy Negative for intraephithelial lesion or malignancy, Other HPV Undetected 12/24/2019 [facility] Provider HEALTH MAINTENANCE Final Result from Last 3 Months or Most Recently Relevant to Health Maintenance Insurance [employer] [address] [place] [phone] [facility] D[facility] - HSN PARTIAL (MEDICAID) Care Teams Cnc Field Service Engineer Relationship Specialty Start Date End Date Name, MD Cedric [address] [place] [phone] PCP - General Family Medicine 04/06/16
--- OUTSIDE RECORDS SUMMARY | 2025-03-12 13:15 | XMS_ITS | Encounter Summary ---
Author Organization [employer] Address [address] [facility] [address] [place] [address] Care Team Providers Care Rn Clinical Documentation Specialist Name Role Phone Name, Cedric NICK Primary Care Provider [phone] Encounter Details Date Type Department Care Team (Latest Contact Info) Description 04/01/2022 Abstract [facility] CONVERSIONS Dental, Provider, DDS Social History Tobacco [...] Description 09/18/2025 3:00 PM EST Office Visit [facility] ADULT DENTAL [address] [place] [address] Jayro, Iza [address] [place] [address] documented as of this encounter Visit Diagnoses Not on filedocumented in this encounter Care Teams Rn Clinical Documentation Specialist Relationship Specialty Start Date End Date Name, MD Cedric [address] [place] [address] PCP - General Family Medicine 04/06/16 documented as of this encounter
--- OUTSIDE RECORDS SUMMARY | 2025-03-12 13:15 | XMS_ITS | Encounter Summary ---
Author Organization [employer] Address [address] [facility] [address] [place] [address] Care Team Providers Care Sales Effectiveness Manager Name Role Phone Name, Cedric NICK Primary Care Provider [phone] Reason for Visit * Reason Comments Follow-up Encounter Details Date Type Department Care Team (Latest Contact Info) Description 03/12/2025 10:45 AM EDT Office Visit [facility] [address] [place] [phone] Name, MD Cedric [address] [place] [address] Osteoarthritis of right knee, unspecified osteoarthritis type (Primary Dx); Seasonal allergic rhinitis, unspecified trigger; Acquired hypothyroidism; High cholesterol; Proteinuria, unspecified type Social History Tobacco Use Types Packs/Day Years [...] 6.4 oz) 03/12/2025 10:36 AM EDT Height - - Body Mass Index 26.53 02/05/2025 12:45 PM EDT documented in this encounter Progress Notes * Cedric Liao MD - 03/12/2025 10:45 AM EDT Subjective Patient ID: Maryann Ruelas is a 54 y.o. female who presents for Follow-up. Patient comes for a follow-up visit we discussed several issues. She has been suffering with right knee pain precipitated by walking. She has right knee swelling on and off. She was already evaluatedfor these complaints recently with ultrasound of the right leg that was negative for DVT. She was found to have a popliteal cyst. X-ray of the right knee showed mild DJD. She has upcoming appointmentwith orthopedics that she is recommended to keep. She uses PRN NSAIDs with symptomatic improvement. She recently returned from [place] and she is having symptoms of allergic rhinitis. She describes runny nose, sneezing, itchy eyes. She has requested refill of her Zyrtec and Flonase and I agreed. The patient had blood work which she was in [place]. Her TSH was found to be elevated around a 100, they did her cholesterol and put her to start on Crestor for primary prevention that she does not want to take. They also added Jardiance to her medications because of her persistent proteinuria (she has not seen renal recently). Review of Systems Constitutional: Negative for chills and fever. HENT: Positive for postnasal drip, rhinorrhea and sneezing. Negative for sore throat. Respiratory: Negative for cough, shortness of breath and wheezing. Cardiovascular: Negative for chest pain, palpitations and leg swelling. Gastrointestinal: Negative for abdominal pain. Musculoskeletal: See HPI Visit Vitals BP 125/84 (BP Location: Left arm, Patient Position: Sitting, BP Cuff Size: Adult) Pulse 91 Temp 96.5 ??F (35.8 ??C) (Temporal) Resp 16 Wt 140 lb 6.4 oz (63.7 kg) SpO2 98% BMI 26.53 kg/m?? Smoking Status Never BSA 1.66 m?? Objective Physical Exam Constitutional: Appearance: Normal appearance. Cardiovascular: Rate and Rhythm: Normal rate and regular rhythm. Heart sounds: No murmur heard. No gallop. Pulmonary: Effort: Pulmonary effort is normal. No respiratory distress. Breath sounds: Normal breath sounds. No wheezing. Musculoskeletal: Right lower leg: No edema. Left lower leg: No edema. Neurological: Mental Status: She is alert. Assessment/Plan Diagnoses and all orders for this visit: Osteoarthritis of right knee, unspecified osteoarthritis type Comments: Continue using NSAIDs sparingly. Keep upcoming appoint with orthopedics. Seasonal allergic rhinitis, unspecified trigger Comments: I refilled Zyrtec and Flonase for daily use. Orders: - fluticasone (Flonase) 50 MCG/ACT nasal spray; Administer 2 sprays into each nostril Once per day.Shake gently. Before first use, prime pump. After use, clean tip and replace cap. Acquired hypothyroidism Comments: Recheck TSH and adjust levothyroxine based on the results Orders: - TSH W/Reflex to FT4; Future High cholesterol Comments: I will recheck her lipid profile and calculate her cardiovascular risk. Further recommendation based on the results. Orders: - Lipid Panel, Standard; Future Proteinuria, unspecified type Comments: I told her I agree with starting Jardiance. I told her to continue on her lisinopril and keep upcoming appointment with renal. Other orders - cetirizine (ZyrTEC) 10 MG tablet; Take 1 tablet (10 mg) by mouth Once per day. - empagliflozin (Jardiance) 10 MG; Take 1 tablet (10 mg) by mouth Once per day. documented in this encounter Plan of Treatment Upcoming Encounters Date Type Department Care Team (Late st Contact Info) Description 09/18/2025 3:00 PM EST Office Visit [facility] [address] [place] [address] Josh Dialaris [address] [place] [address] Scheduled Orders Name Type Priority Associated Diagnoses Orde r Schedule TSH W/Reflex to FT4 Lab Routine Acquired hypothyroidism Expected: 03/12/2025 (Approximate), Expires: 03/12/2026 Lipid Panel, Standard Lab Routine High cholesterol Expected: 03/12/2025 (Approximate), Expires: 03/12/2026 documented as of this encounter Visit Diagnoses Diagnosis Osteoarthritis of right knee, unspecified osteoarthritis type- Primary Seasonal allergic rhinitis, unspecified trigger Acquired hypothyroidism Unspecified hypothyroidism High cholesterol Pure hypercholesterolemia Proteinuria, unspecified type documented in this encounter Additional Health Concerns Assessment Noted Time PHQ-9 Depression Total Score: 0 02/20/20 24 10:24 AM EDT documented as of this encounter Care Teams Sales Effectiveness Manager Relationship Specialty Start Date End Date Name, MD Cedric [address] [place] [address] PCP - General Family Medicine 04/06/16 documented as of this encounter
--- OUTSIDE RECORDS SUMMARY | 2025-03-12 13:15 | XMS_ITS | Encounter Summary ---
Author Organization [employer] Address [address] [facility] [address] [place] [address] Care Team Providers Care Brokerage Manager Name Role Phone Name, Cedric NICK Primary Care Provider [phone] Encounter Details Date Type Department Care Team (Latest Contact Info) Description 03/12/2025 Travel Social History Tobacco Use Types Packs/Day [...] Description 09/18/2025 3:00 PM EST Office Visit [facility] [address] [place] [address] JayroJoshIza [address] [place] [address] documented as of this encounter Visit Diagnoses Not on filedocumented in this encounter Additional Health Concerns Assessment Noted Time PHQ-9 Depression Total Score: 0 02/20/20 24 10:24 AM EDT documented as of this encounter Care Teams Brokerage Manager Relationship Specialty Start Date End Date Name, MD Cedric [address] [place] [address] PCP - General Family Medicine 04/06/16 documented as of this encounter
--- OUTSIDE RECORDS SUMMARY | 2025-03-12 13:15 | XMS_ITS | Encounter Summary ---
Author Organization [employer] Address [address] [facility] [address] [place] [address] Care Team Providers Care Library Science Professor Name Role Phone Name, Cedric NICK Primary Care Provider [phone] Encounter Details Date Type Department Care Team ([facility] st Contact Info) Description 09/23/2023 Orders Only [facility] [address] [place], [place] [id number] Name, MD Cedric [address] [place] [address] Social History Tobacco Use Types Packs/Day Years [...] Description 09/18/2025 3:00 PM EST Office Visit [facility] ADULT [facility] [address] [place] [address] Iza Dial [address] [place] [address] documented as of this encounter Visit Diagnoses Not on filedocumented in this encounter Additional Health Concerns Assessment Noted Time PHQ-9 Depression Total Score: 0 11/19/19 23 1:50 PM EST documented as of this encounter Care Teams Library Science Professor Relationship Specialty Start Date End Date Name, MD Cedric [address] [place] [address] PCP - General Family Medicine 04/06/16 documented as of this encounter
--- OUTSIDE RECORDS SUMMARY | 2025-03-12 13:15 | XMS_ITS | Encounter Summary ---
Author Organization [employer] Address [address] [facility] 7[address] [place] [address] Care Team Providers Care Geek Squad Agent Name Role Phone Name, Cedric NICK Primary Care Provider [phone] Encounter Details Date Type Department Care Team (Late st Contact Info) Description 04/25/2023 Abstract [facility] [address] [place] [address] Name, MD Cedric [address] [place] [address] Social History Tobacco Use Types Packs/Day Years [...] Description 09/18/2025 3:00 PM EST Office Visit [facility] ADULT D[facility]AL [address] [place] [address] JayroIza lockett [address] [place] [address] documented as of this encounter Procedures Procedure [...] EDT Recommended 5 year follow up ( [facility] Historical Provider HEALTH MAINTENANCE Final Result documented in this encounter Visit Diagnoses Not on filedocumented in this encounter Additional Health Concerns Assessment Noted Time PHQ-9 Depression Total Score: 0 11/19/19 23 1:50 PM EST documented as of this encounter Care Teams Geek Squad Agent Relationship Specialty Start Date End Date Name, MD Cedric [address] [place] [address] PCP - General Family Medicine 04/06/16 documented as of this encounter
--- OUTSIDE RECORDS SUMMARY | 2025-03-12 13:15 | XMS_ITS | Encounter Summary ---
Author Organization [facility] Address [address] [facility] [address] [place] [address] Phone Care Team Providers Care Nursing Education Specialist Name Role Phone Name, Cedric NICK Primary Care Provider [phone] Encounter Details Date Type Department Care Team (Late Contact Info) Description 02/02/2022 Telephone [facility] [address] [place] [address] Jasiel Oliver, [address] [address] Social History Tobacco Use Types Packs/Day Years [...] send to Dr Liao. Thank you FAX# [phone] documented in this encounter Plan of Treatment Upcoming Encounters Date Type Department Care Team (Late Contact Info) Description 09/23/2025 10:00 AM EST Office Visit [facility] [address] [phone] Buddy Ortiz MD [address] [phone] documented as of this encounter Visit Diagnoses Not on filedocumented in this encounter Care Teams Nursing Education Specialist Relationship Specialty Start Date End Date Name, MD Cedric [address] [place] [id number] PCP - General Internal Medicine 02/02/22 documented as of this encounter
--- OUTSIDE RECORDS SUMMARY | 2025-03-12 13:15 | XMS_ITS | Clinical Summary ---
Author Organization [facility] Address [address] [facility] [address] [place] [address] Phone Care Team Providers Care Wood Heel Finisher Name Role Phone Name, Cedric NICK Primary Care Provider [phone] Allergies Active Allergy Reactions Criticality Noted Date [...] each day 09/30/2021 Active Deep Sea Nasal Rociada 0.65 % nasal spray 11/04/2021 Active polyethylene [...] Visit [facility] [address] [phone] Buddy Ortiz MD [address] [phone] Health Maintenance Due Date Last Done Comments Breast Cancer Screening 1968 Pneumococcal Vaccine: 50+ Ye ars (1 of 2 - PCV) 1987 Colorectal Cancer Screening: Annual FOBT 2017 Colorectal Cancer Screening: Colonoscopy 2017 Colorectal Cancer Screening: Sigmoidoscopy 2017 Hepatitis B Vaccine (3 of 3 - 19+ 3-dose series) 07/27/2023 03/29/2023, 01/24/2023 Influenza Vaccine (Season Ended) 2025 09/11/2021, 09/16/2020, 08/09/2018, Additional history exists Insurance [employer] ([id number]) [employer] [facility] ([id number]) Care Teams Wood Heel Finisher Relationship Specialty Start Date End Date Name, MD Cedric [address] [place] [id number] PCP - General Internal Medicine 02/02/22
--- OUTSIDE RECORDS SUMMARY | 2025-03-12 13:15 | XMS_ITS | Encounter Summary ---
Author Organization [employer] Address [address] [facility] [address] [place] [address] Care Team Providers Care Laborer Adjustable Steel Joist Name Role Phone Name, Cedric NICK Primary Care Provider [phone] Reason for Visit * Reason Onset Date Comments Chart Prep 03/11/2025 Encounter Details Date Type Department Care Team ([facility] st Contact Info) Description 03/11/2025 Telephone [facility] [address] [place], [place] [phone] Name, MD Cedric [address] [place] [address] Chart Prep Social History Tobacco Use Types Packs/Day Years [...] encounter Miscellaneous Notes * Telephone Encounter - Kate Garcia [place] - 03/11/2025 11:31 AM EDT Chart Prep Labs: done Images: done Referrals: appointment pending Vaccines due: Covid, PCV20, Flu Screenings: Cervical Cancer Overdue care gaps: SBIRT, SDOH, PHQ-9, PEPITO-7, Oral health screening, and Disability screen documented in this encounter Plan of Treatment Upcoming Encounters Date Type Department Care Team (Late st Contact Info) Description 09/18/2025 3:00 PM EST Office Visit [facility] ADULT D[facility]AL [address] [place] [address] Jayro, Iza [address] [place] [address] documented as of this encounter Visit Diagnoses Not on filedocumented in this encounter Additional Health Concerns Assessment Noted Time PHQ-9 Depression Total Score: 0 02/20/20 24 10:24 AM EDT documented as of this encounter Care Teams Laborer Adjustable Steel Joist Relationship Specialty Start Date End Date Name, MD Cedric [address] [place] [address] PCP - General Family Medicine 04/06/16 documented as of this encounter
[2025-03-12 13:41] LABS: Cholesterol 205 mg/dL (<200); HDL Cholesterol 41 mg/dL (>40); LDL Cholesterol Calculated 102 mg/dL (<100); Triglycerides 313 mg/dL (<150)
== END 2025-03-12 11:16 | disposition home or self-care (01) ==
LOC: HO.HHCL 11:15
PROVIDERS: Visit Provider Internal Medicine Geriatric Medicine
DX: E78.00 Pure hypercholesterolemia, unspecified (principal); E03.9 Hypothyroidism, unspecified
CPT/HCPCS: 36415; 80061; 84443; 99202

== ENCOUNTER 2025-03-12 11:58 | Outpatient (AMB) | payer OTHER, SELFPAY ==
--- NOTE | 2025-03-12 12:49 | MHC.OFFVIS ---
Vital Signs 03/12/25 12:56 Height 5 ft 6 in Weight 134 lb BMI 21.6 Intake Visit Reasons: Right knee pain and giving way Intake Note: Maryann is a 54 year old female who presents with complaints of progressively worsening right knee pain and giving way. The patient states that her symptoms have gotten worse over the last 12 years. She did have an injection given into her right knee while living in [facility] 12 years ago. She got minimal relief from the injection. Most of the pain is along the medial aspect of her right knee. She states that her knee will give out several times per day. Her symptoms have gotten worse over the last few months in spite of continued non operative treatments. She has tried physical therapy exercises which aggravated her pain. She has also tried Tylenol and anti-inflammatory medicines which gave her minimal relief. Electrical Prospecting Observer Required: Yes Electrical Prospecting Observer Services: Electrical Prospecting Observer Present Electrical Prospecting Observer Name: Ace ID#[id number] Allergies ceftriaxone Allergy (Severe, Verified 03/12/25 12:59) Anaphylaxis Iodinated Contrast Media [IV Contrast Dye] Allergy (Severe, Verified 03/12/25 12:59) Anaphylaxis magnesium hydroxide [From Milk of Magnesia] Allergy (Intermediate, Verified 03/12/25 12:59) Rash Medication List - Last Reconciled 03/12/25 by Jase Manning MD acetaminophen 500 mg PO Q6H PRN bisacodyl 10 mg (2 x 5 mg) PO DAILY docusate sodium 200 mg (2 x 100 mg) PO BEDTIME hydrocortisone 2.5% (Proctosol HC) 1 appl NM BID-QID PRN hydrocortisone acetate (Anucort-HC) 25 mg NM BID levothyroxine 1 tab PO DAILY lisinopril 10 mg PO DAILY polyethylene glycol 3350 (Miralax) 17 grams PO DAILY pseudoephedrine HCl (Sudogest) 30 mg PO BEDTIME terconazole 0.8% 1 appful vaginal BEDTIME 3 days tramadol 50 mg PO BID PRN PFSH Medical History Hemorrhoids with complication Endometrial hyperplasia Heartburn GERD (gastroesophageal reflux disease) Skin lesion of back Kidney stone Vitamin D deficiency Hypothyroidism Surgical History Hx of ventral hernia repair (05/31/24) Hx of unilateral oophorectomy History of surgery Tubal ligation status Hx of colonoscopy Hx of esophagogastroduodenoscopy Family History Father Hypertension Respiratory failure Mother Pancreatic cancer Social History Household Members: Spouse Housing: Apartment Are you a primary senior resident care director to a significant other at home: No Do you presently have visiting nurse or other home services: No Alcohol intake: never Patient Tobacco Use Status: Never used Tobacco Second Hand Smoke Exposure: No service: No Current occupational status: employed Current occupation: [employer] program Sexual orientation: Straight/Heterosexual Gender identity: Female Female Reproductive History Menstrual Age of Menarche: 16 Physical Exam Vital Signs: BMI result Body Mass Index 21.6 Const Other: Well-nourished well-developed very friendly female awake alert and oriented x3 in no acute distress Extrem Other: Bilateral lower extremity examination shows good capillary refill, no skin lesions noted, normal sensation light touch Right knee examination shows a minimal effusion, minimal crepitus with range of motion, tenderness along her medial joint line, positive Connie's test, no instability Results Reviewed Results Reviewed: Full weight-bearing x-rays of the patient's right knee show minimal diffuse joint space narrowing, no acute bony abnormalities Assessment & Plan Assessment & Plan (1) Tear of medial meniscus of right knee: Code(s): S83.241A - Other tear of medial meniscus, current injury, right knee, initial encounter Category: Medical Plan Ms. Suraj Ruelas presents with progressively worsening right knee pain and mechanical symptoms most likely due to a medial meniscus tear. Thus, I will send the patient for an MRI of her right knee for further evaluation. I will see her back once the MRI is completed to discuss the findings and treatment options. She will contact me prior to that time should her symptoms worsen in any way. I spent 20 minutes in reviewing the patient's records and imaging studies, seeing the patient and documenting in the medical record. Orders: Orders MR knee RT wo con Today S83.241A - Other tear of medial meniscus, current injury, right knee, initial encounter Coding Level of Care Code New Pt Level 3 (56153) Complex EM visit Add On G2211 Diagnoses Tear of medial meniscus of right knee S83.241A
[2025-03-12 12:56] VITALS: BMI 21.6
--- OUTSIDE RECORDS SUMMARY | 2025-03-12 14:06 | XMS_ITS | Clinical Summary ---
Author Organization [employer] Address [address] [facility] 7t [place] [address] Care Team Providers Care Fast Food Team Member Name Role Phone Name, Cedric NICK Primary Care Provider [phone] Allergies Active Allergy Reactions Criticality Noted Date [...] IN WATER AND TAKE ONCE DIRECTED BY [facility] GI DEPT 023 Active Acetaminophen Extra [...] onet of right knee pain. Seen at [facility] ER 02/02/2025. Work up included [...] Description 03/12/2025 10:45 AM EDT Office Visit [facility] MEDICINE [address] [place] [phone] Cedric Liao MD Osteoarthritis of right knee, unspecified osteoarthritis type (Primary Dx); Seasonal allergic rhinitis, unspecified trigger; Acquired hypothyroidism; High cholesterol; Proteinuria, unspecified type 03/12/2025 Travel 03/11/2025 Telephone [facility]INE [address] [place] [address] Cedric Liao MD Chart Prep 02/18/2025 Refill [facility] WALK-IN [address] [address] Cedric Liao MD Acquired hypothyroidism 02/06/[address] [address] Amber David, RN Results 02/05/2025 1:00 PM EDT Office Visit [facility]ALKIN [address] [address] Sebas Rajan MD Acute pain of right knee (Primary Dx) 02/05/2025 Orders Only [facility] [address] [place] [address] Sebas Rajan MD 01/29/2025 Telephone [facility] ADULT DENTAL [address] [place] [address] Iza Dial 01/03/2025 Orders Only [facility] External Provider, [facility] 12/14/2024 9:00 AM EST Office Visit [address] [address] Alonso Robles MD Seborrheic keratosis (Primary Dx) [...] Description 09/18/2025 3:00 PM EST Office Visit [facility] ADULT DENTAL [address] [place] [address] Jayro, Iza [address] [place] [address] Health Maintenance Due Date Last Done Comments [...] Procedure Name Priority Date/Time Associated Diagnosis Comments LIPID PANEL, STANDARD Routine 03/12/2025 11:17 AM EDT High cholesterol TSH W/REFLEX TO FT4 Routine 03/12/2025 1 1:17 AM EDT Acquired hypothyroidism CREATININE, SERUM Routine 02/05/2025 1:3 7 PM [...] Maintenance Results * TSH W/Reflex to FT4 (03/12/2025 11:17 AM EDT) TSH reflex Free T4 1.70 0.32 - 4.0 uIU/mL [facility] Blood Venous blood specimen / Unknown 03/12/2025 11:17 AM EDT 03/12/2025 1:10 PM EDT us Cedric Name MD LAB BLOOD ORDERABLES Final Resul t [facility] [address] [place] [phone] * (ABNORMAL) Lipid Panel, Standard (03/12/2025 11:17 AM EDT) Triglycerides 313(H) <150 mg/dL [facility] Comment:Desirable Triglyceri de: less than 150 mg/dLBorderline High Triglyceride 150-199 mg/dLHigh Triglyceride: 200-499 mg/dLVery High Triglyceride: greater than or equal to 5OO mg/dL Cholesterol 205(H) <200 mg/dL [facility] Comment:Desirable Cholestero l: less than 200 mg/dLBorderline High Cholesterol: 200-239 mg/dLHigh Cholesterol: greater than 239 mg/dL LDL Cholesterol Calculated 102(H) <100 mg/dL [facility] Comment:Desirable LDL: less than 100 mg/dLNear Optimal/Above Optimal LDL: 110- 129 mg/dLBorderline High LDL: 130-159 mg/dLHigh LDL: 160-189 mg/dLVery High LDL: greater than or equal to 190 mg/dL HDL Cholesterol 41 >40 mg/dL [facility] Comment:Desirable HDL: great er than 40 mg/dL Note: This HDL assay may give artificially low results in patients with liver disease. Blood Venous blood specimen / Unknown 03/12/2025 11:17 AM EDT 03/12/2025 1:10 PM EDT Cedric Liao MD LAB BLOOD ORDERABLES Final Resul t Performing Organization Address City/[facility]/ZIP Co de Phone Number [facility] [address] [place] [address] [phone] * Slide Review (02/05/2025 1:37 PM EDT) Slide Review VERIFIED [facility] 02/05/2025 1:37 PM EDT 02/05/2025 4:24 PM EDT Sebas Henry MD LAB BLOOD ORDERABLES Final Result Performing Organization Address [facility] Co de Phone Number [facility] [address] [place] [address] [phone] * Vitamin D, 25-Hydroxy, Total, Immunoassay (02/05/2025 1:37 PM EDT) Vitamin D 25-OH Total 54.6 >30 ng/mL [facility] Comment: Health Based Reference Values*< 20 ??ng/mL ??Dfwrvqxbc11-00 ng/mL ??Insufficient> 30 ??ng/mL ??Sufficient*Deneen JUAREZ. N [...] ORDERABLES Final Resul t Performing Organization Address [facility] Co de Phone Number [facility] [address] [place] [phone] * Creatinine, Serum (02/05/2025 1:37 PM EDT) Creatinine, Serum 0.74 0.5 - 1.4 mg/dL [facility] Estimated Glomerular Filt Rate >60 [facility] Comment:Chronic Kidney Disea se: Estimated GFR < 60 mL/min/1.07u9Wwdgeu Kidney Disease: Estimated GFR < 15 mL/min/1.73m2 02/05/2025 1:37 PM EDT 02/05/2025 4:24 PM EDT us Generic External Data Provider LAB BLOOD ORDERAB LES Final Result Performing Organization Address [facility] Co de Phone Number [facility] [address] [place] [phone] * (ABNORMAL) CBC auto differential (02/05/2025 1:37 PM EDT) White Blood Count 6.4 4.8 - 10.8 X10*3/uL [facility] Red Blood Count 4.12(L) 4.20 - 5.50 X10*6/uL [facility] Hemoglobin 11.8(L) 12.0 - 16.0 g/dl [facility] Hematocrit 35.6(L) 37.0 - 47.0 % [facility] Mean Corpuscular Volume 86.4 80.0 - 98.0 fL [facility] Mean Corpuscular Hemoglobin 28.6 27.0 - 33.0 pg [facility] Mean Corpuscular HGB Conc 33.1 31.0 - 35.0 g/dl [facility] Red Cell Distribution Width 13.1 11.0 - 16.0 % [facility] Platelet Count 172 160 - 400 X10*3/uL [facility] Mean Platelet Volume 13.0(H) 9.4 - 12.3 fL [facility] Neutrophils Percent Auto 50.0 45 - 73 % [facility] Imm Gran Pct Auto 0.5(H) 0.0 - 0.4 % [facility] Lymphocytes Percent Auto 38.5 20 - 40 % [facility] Monocytes Percent Auto 7.8 2 - 11 % [facility] Eosinophils Percent Auto 1.6 0 - 4 % [facility] Basophils Percent Auto 1.6 0 - 2 % [facility] NRBC Pct Auto 0.0 0.0 - 0.2 /100WBC [facility] Neutrophils Absolute Auto 3.2 2.0 - 8.3 x10*3/uL [facility] Imm Gran Abs Auto 0.03 0.00 - 0.03 X10*3/uL [facility] Lymphocytes Absolute Auto 2.5 1.2 - 4.9 X10*3/uL [facility] Monocytes Absolute Auto 0.5 0.1 - 1.2 X10*3/uL [facility] Eosinophils Absolute Auto 0.1 0.0 - 0.4 X10*3/uL [facility] Basophils Absolute Auto 0.1 0.0 - 0.2 X10*3/uL [facility] NRBC Abs Auto 0.000 0.0 - 0.012 X10*3/uL [facility] Blood Venous blood specimen / Unknown 02/05/2025 1:37 PM EDT 02/05/2025 4:24 PM EDT us Sebas Henry MD LAB BLOOD ORDERABLES Edited Result - Final [facility] [address] [place] [phone] * (ABNORMAL) Uric acid (02/05/2025 1:37 PM EDT) Uric Acid 6.8(H) 2.4 - 5.7 mg/dL [facility] Blood Venous blood specimen / Unknown 02/05/2025 1:37 PM EDT 02/05/2025 4:24 PM EDT us Sebas Henry MD LAB BLOOD ORDERABLES Final Result Performing Organization Address [facility] Co de Phone Number [facility] [address] [place] [address] [phone] * BUN (Blood Urea Nitrogen) (02/05/2025 1:37 PM EDT) Urea Nitrogen (BUN) 14 9 - 16 mg/dL [facility] 02/05/2025 1:37 PM EDT 02/05/2025 4:24 PM EDT us Generic External Data Provider LAB BLOOD ORDERAB LES Final Result Performing Organization Address [facility] de Phone Number [facility] [address] [place] [address] [phone] * XR Knee 4+ Views Right (02/05/2025 1:11 PM EDT) Anatomical Region Laterality Modality Lower Extremities, Knee Right Radiogra phic Imaging 02/05/2025 1:11 PM EDT Narrative 02/05/2025 1:40 PM EDT ?[facility] ?[address] ?[place] [address] ?XRay Report ? Signed ? Patient: Suraj Ruelas,Maryann A ?MR ?? #: [id number] ? : 1970 ?Acct:[id number] ? Age/Sex: 54 / F ?ADM Date: 03/25/25 ? Loc: HO.HHCX ? Attending Dr: Sebas Felix MD ? Ordering Physician: Sebas Felix MD ?? Date of Service: 02/05/25 ?? Procedure(s): XR knee RT 4V ?? Accession Number(s): [id number] ? cc: Sebas Felix MD ? EXAMINATION: [...] DD/ 1311 ? TD/TT: 02/05/25 1320 ? Cardiovascular Rn: ? Procedure Note Asha, Image - 02/05/2025 [place] [address] XRay Report Signed Patient: Maryann Tan AMR #: [id number] : 1970Acct:[id number] Age/Sex: 54 / FADM Date: 02/05/25 Loc: HO.HHCX Attending Dr: Sebas Felix MD Ordering Physician: Sebas Felix MD Date of Service: 02/05/25 Procedure(s): XR knee RT 4V Accession Number(s): [id number] cc: Sebas Felix MD EXAMINATION: XR KNEE [...] 02/05/25 1335 DD/ 1311 TD/TT: 02/05/25 1320 Cardiovascular Rn: us Sebas Henry MD IMG XR PROCEDURES Robi tawnya Result - Final * US VENOUS DUPLEX LE RT (02/02/2025 5:28 PM EDT) Anatomical Region Laterality Modality Abdomen Ultrasound 02/02/2025 5:28 PM EDT Narrative 02/02/2025 5:30 PM EDT ? [facility] ?[address] ?[place] [address] ? Ultrasound Report ? Signed ? Patient: Maryann Tan ?MR ?? #: [id number] ? : 1970 ?Acct:[id number] ? Age/Sex: 54 / F ?ADM Date: 02/02/25 ? Loc: HO.ED ? Attending Dr: ? Ordering Physician: Keysha Courtney CNP ?? Date of Service: 02/02/25 ?? Procedure(s): US venous duplex LE RT ?? Accession Number(s): [id number] ? cc: Keysha Courtney CNP; Name,Cedric NICK [...] DD/ 1728 ? TD/TT: 02/02/25 1728 ? Cardiovascular Rn: ? Procedure Note Donbonnie, Molly - 02/02/2025 [place] [address] Ultrasound Report Signed Patient: Maryann Tan AMR #: [id number] : 1970Acct:[id number] Age/Sex: 54 / FADM Date: 02/02/25 Loc: HO.ED Attending Dr: Ordering Physician: Keysha Courtney CNP Date of Service: 02/02/25 Procedure(s): US venous duplex LE RT Accession Number(s): [id number] cc: Keysha Courtney CNP; Name,Cedric NICK CLINICAL [...] signed by Enio Delatorre MD in OV> 02/02/259 DD/ TD/TT: 02/02/258 Cardiovascular Rn: us [facility] External Provider IMG US PROCEDURES Edited Result - Final * US Abdomen Limited (01/07/2025 11:35 PM EST) Anatomical Region Laterality Modality Abdomen Ultrasound 01/07/2025 11:3 5 PM EST Narrative 01/07/2025 11:36 PM EST ? [facility] ?[address] ?[place] [address] ? Ultrasound Report ? Signed ? Patient: Ruelas Ruelas,Crecencia A ?MR ?? #: [id number] ? : 1970 ?Acct:[id number] ? Age/Sex: 54 / F ?ADM Date: 01/03/25 ? Loc: HO.US ? Attending Dr: Kushal Araya MD ? Ordering Physician: Kushal Araya MD ?? Date of Service: 01/03/25 ?? Procedure(s): US abdomen limited ?? Accession Number(s): [id number] ? cc: Name,Cedric NICK; Kushal Araya MD [...] 2336 ? DD/ ? TD/TT: 01/07/252334 ? Cardiovascular Rn: ? Procedure Note Asha, Image - 01/07/[address] [address] Ultrasound Report Signed Patient: Maryann Tan AMR #: [id number] : 1970Acct:[id number] Age/Sex: 54 / FADM Date: 01/03/25 Loc: HO.US Attending Dr: Kushal Araya MD Ordering Physician: Kushal Araya MD Date of Service: 01/03/25 Procedure(s): US abdomen limited Accession Number(s): [id number] cc: Cedric Liao MD; Kushal Araya MD [...] in OV> 01/07/252335 DD/ 34 TD/TT: 01/07/252334 Cardiovascular Rn: [facility] External Provider IMG US PROCEDURES Edited Result - Final * Hepatitis C Antibody with Reflex to HCV, RNA, Quantitative, Real-Time PCR (10/03/2024 11:20 AM EST) Hepatitis C Antibody Nonreactive Nonreactive [facility] Comment:Antibodies to HCV no t detected; does not exclude early acuteHCV infection. Blood Venous blood specimen / Unknown 10/03/2024 11:20 AM EST 10/03/2024 1:16 PM EST Cedric Liao MD LAB BLOOD ORDERABLES Final Resul t [facility] [address] [place] [address] [phone] * HIV-1/2 Antigen and Antibodies, Fourth Generation, with Reflexes (10/03/2024 11:20 AM EST) HIV AB/AG Nonreactive Nonreactive [facility] Comment:HIV-1 p24 Ag and/or HIV-1/HIV-2 Ab not detected.A test result that is nonreactive does not exclude thepossibility of exposure to or infection with HIV-1 and/orHIV-2. Nonreactive results in this assay for individualswith prior exposure to HIV-1 and/or HIV-2 may be due toantigen and antibody levels that are below the limit ofdetection of this assay.The [employer] HIV Ag/Ab Combo assay result andsupplemental assay results should be interpreted inconjunction with the patient's clinical presentation,history and other laboratory results. If the results areinconsistent with clinical evidence, additional testing issuggested to confirm the result. Blood Venous blood specimen / Unknown 10/03/2024 11:20 AM EST 10/03/2024 1:16 PM EST us Cedric Liao MD LAB BLOOD ORDERABLES Final Resul t [facility] [address] [place] [address] [phone] * BI Mammogram Screening Tomosynthesis Bilateral (05/25/2024 12:45 PM EDT) Anatomical Region Laterality Modality Breast Bilateral Mammography 05/25/2024 12:4 5 PM EDT Narrative 06/19/2024 9:18 PM EDT ? [facility] ? [address] ?[place] [address] ? Mammography Report ? Signed ? Patient: Maryann Tan A ?MR ?? #: [id number] ? : 1970 ?Acct:[id number] ? Age/Sex: 54 / F ?ADM Date: 07/12/24 ? Loc: HO.MAMMO ? Attending : Cedric Name MD ? Ordering Physician: Name,Cedric MD ?Results: 0Incomplet ?? e: Needs Additional Imaging Evaluation ? Date of Service: 05/25/24 ?Follow Up: Additional Imagi ?? ng ? Procedure(s): MM tomosynthesis screening BI ?? Accession Number(s): [id number] ? cc: Name,Cedric NICK ? EXAMINATION: ?? [...] 06/19/242101 ? DD/ 1245 ? TD/TT: ? Cardiovascular Rn: ? Procedure Note Donotuseinterpreter, Image - 06/19/2024 [facility] [address] [place], [place] [address] Mammography Report Signed Patient: Maryann Tan AMR #: [id number] : 1970Acct:[id number] Age/Sex: 54 / FADM Date: 05/25/24 Loc: HO.MAMMO Attending Dr: Cedric Liao MD Ordering Physician: Cedric Liaoesults: 0Incomplet e: Needs Additional Imaging Evaluation Date of Service: 05/25/24Follow Up: Additional Imagi ng Procedure(s): MM tomosynthesis screening BI Accession Number(s): [id number] cc: Cedric Liao MD EXAMINATION: MM SCREENING [...] in OV> 06/19/24 2102 DD/ 1245 TD/TT: Cardiovascular Rn: Cedric Liao MD IMG BI PROCEDURES Edited Result - Final * (ABNORMAL) Colonoscopy (07/21/2023) Colonoscopy Abnormal(A ) Normal us Cedric Liao MD HEALTH MAINTENANCE Final Result * Pap Smear (12/24/2019) Pap Negative for intraephithelial lesion or malignancy Negative for intraephithelial lesion or malignancy, Other HPV Undetected 12/24/2019 [facility] Provider HEALTH MAINTENANCE Final Result from Last 3 Months or Most Recently Relevant to Health Maintenance [place] [place] [address] * Guarantor: Maryann Tan Account Type Relation to Patient Date of Phone Billing Address Dental Self 1970 [address] [place] [address] DENTAL - HSN PARTIAL (MEDICAID) * Guarantor: Maryann Tan Account Type Relation to Patient Date of Phone Billing Address Personal/Family Self [address] [place] [address] * Guarantor: Maryann Tan A Account Type Relation to Patient Date of Phone Billing Address Personal/Family Self [address] [place] [address] * Guarantor: Maryann Tan Account Type Relation to Patient Date of Phone Billing Address Personal/Family Self [address] [place] [address] Care Teams Fast Food Team Member Relationship Specialty Start Date End Date Name, MD Cedric [address] [place] [phone] PCP - General Family Medicine 04/06/16
--- OUTSIDE RECORDS SUMMARY | 2025-03-12 14:06 | XMS_ITS | Encounter Summary ---
Author Organization [employer] Address [address] [facility] [address] [place] [address] Care Team Providers Care Physicist Astrophysics Name Role Phone Name, Cedric NICK Primary Care Provider [phone] Reason for Visit * Reason Onset Date Comments Chart Prep 03/11/2025 Encounter Details Date Type Department Care Team ([facility] st Contact Info) Description 03/11/2025 Telephone [facility] MEDICINE [address] [place], [place] [phone] Name, MD Cedric [address] [place] [address] Chart Prep Social History Tobacco Use Types [...] 09/18/2025 3:00 PM EST Office Visit [facility] ADULT DENTAL [address] [place] [address] Jayro, Iza [address] [place] [address] documented as of this encounter Visit Diagnoses Not on filedocumented in this encounter Additional Health Concerns Assessment Noted Time PHQ-9 Depression Total Score: 0 02/20/20 24 10:24 AM EDT documented as of this encounter Care Teams Physicist Astrophysics Relationship Specialty Start Date End Date Name, MD Cedric [address] [place] [address] PCP - General Family Medicine 04/06/16 documented as of this encounter
--- OUTSIDE RECORDS SUMMARY | 2025-03-12 14:06 | XMS_ITS | Encounter Summary ---
Author Organization [employer] Address [address] [facility] 7t [place] [address] Care Team Providers Care Ham Doctor Name Role Phone Name, Cedric NICK Primary Care Provider [phone] Encounter Details Date Type Department Care Team (Latest Contact Info) Description 04/01/2022 Abstract [facility] CONVERSIONS Dental, Provider, DDS Social History [...] Description 09/18/2025 3:00 PM EST Office Visit [facility] ADULT DENTAL [address] [place] [address] Jayro, Iaz [address] [place] [address] documented as of this encounter Visit Diagnoses Not on filedocumented in this encounter Care Teams Ham Doctor Relationship Specialty Start Date End Date Name, MD Cedric [address] [place] [address] PCP - General Family Medicine 04/06/16 documented as of this encounter
--- OUTSIDE RECORDS SUMMARY | 2025-03-12 14:06 | XMS_ITS | Encounter Summary ---
Author Organization [employer] Address [address] [place] [address] Care Team Providers Care Pilot Safety Inspector Name Role Phone Name, Cedric NICK Primary Care Provider [phone] Encounter Details Date Type Department Care Team ([facility] st Contact Info) Description 09/23/2023 Orders Only [facility] MEDICINE [address] [place], [place] [phone] Name, MD Cedric [address] [place] [address] Social History Tobacco Use Types Packs/Day Years [...] Description 09/18/2025 3:00 PM EST Office Visit [facility] ADULT DENTAL [address] [place] [address] Iza Dial [address] [place] [address] documented as of this encounter Visit Diagnoses Not on filedocumented in this encounter Additional Health Concerns Assessment Noted Time PHQ-9 Depression Total Score: 0 11/19/19 23 1:50 PM EST documented as of this encounter Care Teams Pilot Safety Inspector Relationship Specialty Start Date End Date Name, MD Cedric [address] [place] [address] PCP - General Family Medicine 04/06/16 documented as of this encounter
--- OUTSIDE RECORDS SUMMARY | 2025-03-12 14:06 | XMS_ITS | Encounter Summary ---
Author Organization [employer] Address [address] [place] [address] Care Team Providers Care Creative/Art Director Name Role Phone Name, Cedric NICK [...] Description 09/18/2025 3:00 PM EST Office Visit [facility] ADULT DENTAL [address] [place] [address] JayroJoshIza [address] [place] [address] documented as of this encounter Visit Diagnoses Not on filedocumented in this encounter Additional Health Concerns Assessment Noted Time PHQ-9 Depression Total Score: 0 02/20/20 24 10:24 AM EDT documented as of this encounter Care Teams Creative/Art Director Relationship Specialty Start Date End Date Name, MD Cedric [address] [place] [address] PCP - General Family Medicine 04/06/16 documented as of this encounter
--- OUTSIDE RECORDS SUMMARY | 2025-03-12 14:06 | XMS_ITS | Encounter Summary ---
Author Organization [facility] Address [address] [facility] [address] [place] [address] Phone Care Team Providers Care Astronomy Teacher Name Role Phone Name, Cedric NICK Primary Care Provider [phone] Encounter Details Date Type Department Care Team (Late Contact Info) Description 02/02/2022 Telephone [facility] [address] [place] [address] Jasiel Oliver, [address] [address] Social History Tobacco Use Types Packs/Day Years [...] send to Dr Liao. Thank you FAX# [phone] documented in this encounter Plan of Treatment Upcoming Encounters Date Type Department Care Team (Late Contact Info) Description 09/23/2025 10:00 AM EST Office Visit [facility] [address] [phone] Buddy Ortiz MD [address] [phone] documented as of this encounter Visit Diagnoses Not on filedocumented in this encounter Care Teams Astronomy Teacher Relationship Specialty Start Date End Date Name, MD Cedric [address] [place] [address] PCP - General Internal Medicine 02/02/22 documented as of this encounter
--- OUTSIDE RECORDS SUMMARY | 2025-03-12 14:06 | XMS_ITS | Encounter Summary ---
Author Organization [employer] Address [address] [place] [address] Care Team Providers Care Environmental Project Manager Name Role Phone Name, Cedric NICK Primary Care Provider [phone] Reason for Visit * Reason Comments Follow-up Encounter Details Date Type Department Care Team (Latest Contact Info) Description 03/12/2025 10:45 AM EDT Office Visit [facility] [address] [place] [address] [phone] Name, MD Cedric [address] [place] [address] Osteoarthritis of right knee, unspecified osteoarthritis type [...] Description 09/18/2025 3:00 PM EST Office Visit [facility] [address] [place], [place] [phone] Jayro, Iza [address] [place] [address] documented as of this encounter Procedures Procedure Name Priority Date/Time Associated Diagnosis Comments TSH W/REFLEX TO FT4 Routine 03/12/2025 11:17 AM EDT Acquired hypothyroidism LIPID PANEL, STANDARD Routine 03/12/2025 11:17 AM EDT High cholesterol documented in this encounter Results * (ABNORMAL) Lipid Panel, Standard (03/12/2025 11:17 AM EDT) Triglycerides 313(H) <150 mg/dL [facility] Comment:Desirable Triglyceri de: less than 150 mg/dLBorderline High Triglyceride 150-199 mg/dLHigh Triglyceride: 200-499 mg/dLVery High Triglyceride: greater than or equal to 5OO mg/dL Cholesterol 205(H) <200 mg/dL [facility] Comment:Desirable Cholestero l: less than 200 mg/dLBorderline High Cholesterol: 200-239 mg/dLHigh Cholesterol: greater than 239 mg/dL LDL Cholesterol Calculated 102(H) <100 mg/dL [facility] Comment:Desirable LDL: less than 100 mg/dLNear Optimal/Above Optimal LDL: 110- 129 mg/dLBorderline High LDL: 130-159 mg/dLHigh LDL: 160-189 mg/dLVery High LDL: greater than or equal to 190 mg/dL HDL Cholesterol 41 >40 mg/dL [facility] Comment:Desirable HDL: great er than 40 mg/dL Note: This HDL assay may give artificially low results in patients with liver disease. Blood Venous blood specimen / Unknown 03/12/2025 11:17 AM EDT 03/12/2025 1:10 PM EDT us Cedric Liao MD LAB BLOOD ORDERABLES Final Resul t Performing Organization Address [facility] Co de Phone Number [facility] [address] [place] [phone] * TSH W/Reflex to FT4 (03/12/2025 11:17 AM EDT) TSH reflex Free T4 1.70 0.32 - 4.0 uIU/mL [facility] Blood Venous blood specimen / Unknown 03/12/2025 11:17 AM EDT 03/12/2025 1:10 PM EDT us Cedric Liao MD LAB BLOOD ORDERABLES Final Resul t Performing Organization Address [facility] de Phone Number [facility] [address] [place] [phone] documented in this encounter Visit Diagnoses Diagnosis Osteoarthritis of right knee, unspecified osteoarthritis type- Primary Seasonal allergic rhinitis, unspecified trigger Acquired hypothyroidism Unspecified hypothyroidism High cholesterol Pure hypercholesterolemia Proteinuria, unspecified type documented in this encounter Additional Health Concerns Assessment Noted Time PHQ-9 Depression Total Score: 0 02/20/20 24 10:24 AM EDT documented as of this encounter Care Teams Environmental Project Manager Relationship Specialty Start Date End Date Name, MD Cedric [address] [place] [address] PCP - General Family Medicine 04/06/16 documented as of this encounter
--- OUTSIDE RECORDS SUMMARY | 2025-03-12 14:06 | XMS_ITS | Encounter Summary ---
Author Organization [employer] Address [address] [facility] [address] [place] [address] Care Team Providers Care Molding Line Assistant Name Role Phone Name, Cedric NICK Primary Care Provider Encounter Details Date Type Department Care Team (Late st Contact Info) Description 04/25/2023 Abstract [facility] [address] [place] [address] Name, MD Cedric [address] [place] [address] Social History Tobacco Use Types Packs/Day Years [...] Description 09/18/2025 3:00 PM EST Office Visit [facility] [address] [place] [address] JayroIza lockett [address] [place] [address] documented as of this encounter Procedures Procedure [...] EDT Recommended 5 year follow up ( [facility]) Historical Provider HEALTH MAINTENANCE Final Result documented in this encounter Visit Diagnoses Not on filedocumented in this encounter Additional Health Concerns Assessment Noted Time PHQ-9 Depression Total Score: 0 11/19/19 23 1:50 PM EST documented as of this encounter Care Teams Molding Line Assistant Relationship Specialty Start Date End Date Name, MD Cedric [address] [place] [address] PCP - General Family Medicine 04/06/16 documented as of this encounter
--- OUTSIDE RECORDS SUMMARY | 2025-03-12 14:06 | XMS_ITS | Clinical Summary ---
Author Organization [facility] Address [address] [facility] [address] [place] [address] Phone Care Team Providers Care Novelty Printing Machine Operator Name Role Phone Name, Cedric NICK Primary Care Provider [phone] Allergies Active Allergy Reactions Criticality Noted Date [...] each day 09/30/2021 Active Deep Sea Nasal [place] 0.65 % nasal spray 11/04/2021 Active polyethylene [...] [facility] [address] [phone] Buddy Ortiz MD [address] [phone] Health Maintenance Due Date Last [...] 09/11/2021, 09/16/2020, 08/09/2018, Additional history exists Insurance [employer] ([id number]) Integrated Medical Management [facility] ([id number]) Care Teams Novelty Printing Machine Operator Relationship Specialty Start Date End Date Name, MD Cedric [address] [place] [phone] PCP - General Internal Medicine 02/02/22
== END 2025-03-12 13:07 | disposition home or self-care (01) ==
LOC: HO.HOS 11:59
PROVIDERS: Visit Provider Orthopaedic Surgery
DX: S83.241A Other tear of medial meniscus, current injury, right knee, initial encounter (principal)
CPT/HCPCS: 99203; G2211

== ENCOUNTER 2025-03-13 09:53 | Outpatient (AMB) | payer OTHER, SELFPAY ==
--- NOTE | 2025-03-13 10:07 | MHC.OFFVIS ---
Vital Signs 03/13/25 10:23 Height 5 ft 6 in Weight 134 lb BMI 21.6 BP 124/76 Blood Pressure Location Rt brachial Position Sitting Pulse 78 Pulse Source Pulse Oximeter Pulse Oximetry (%) 98 Oxygen Delivery Method Room Air Intake Visit Reasons: 6 months follow up [facility] Intake Note: ESTABLISHED PATIENT for GERD + [facility] mgmt. Chief Complaint; C/O RUQ pain that has remained persistent over the last few months. Pt reports that she received eval and imaging per Dr. Araya that came back negative, however, she still experiences this abnormal sensation. Pt also reports persistence of constipation without medication, finding that she is increasingly dependent on her medications. Pt does request refills of medications today; however, she reports that the miralax is not working well for her anymore, but that she is still taking it at this time. Elevating Grader Operator Required: Yes Elevating Grader Operator Services: Elevating Grader Operator Present Elevating Grader Operator Name: [id number] [place] Health Information Interpreted: clinical only Accompanied by: Self / Same As Patient Allergies ceftriaxone Allergy (Severe, Verified 03/13/25 10:24) Anaphylaxis Iodinated Contrast Media [IV Contrast Dye] Allergy (Severe, Verified 03/13/25 10:24) Anaphylaxis magnesium hydroxide [From Milk of Magnesia] Allergy (Intermediate, Verified 03/13/25 10:24) Rash HPI HPI 6 months follow up [facility]: Details: LAST VISIT H/O resection of large bowel Dyspepsia Diverticulitis Chronic idiopathic constipation Diverticulitis large intestine Plan Patient will continue taking Dulcolax and stool softeners. Increase fluid intake and activity to promote better bowel motility. Patient can take it MiraLax as needed. Probiotics daily. Follow-up in 6 months, sooner on as needed basis. Patient is agreeable to this plan and verbalizes understanding of instructions. She was given the opportunity to ask questions and all questions answered. ? Thank you for allowing me to participate in her care Medications New polyethylene glycol 3350 (Miralax) 17 grams PO DAILY 510 grams 2RF Refilled bisacodyl 10 mg (2 x 5 mg) PO DAILY 60 tabs 2RF docusate sodium 200 mg (2 x 100 mg) PO BEDTIME 180 caps 3RF K59.00 TODAY'S VISIT Patient is here today for follow-up. Patient reports that she has been feeling better, however she will occasionally have abdominal discomfort. Patient reports abdominal bloating and pain in the umbilical region. Denies any new tenderness, however sometimes depending on what she is wearing she will feel pressure just below her umbilicus. Patient denies any nausea or vomiting. Reports that she is moving her bowels better. Patient states that without taking laxative she is unable to have a normal bowel movement. Patient was in [place] in January and purchased senna tea which she has been using to help her move her bowels. Needs Dulcolax refill. Patient denies melena, hematochezia, unintentional weight loss or ribbon like stools. Patient denies any dyspepsia, dysphagia or odynophagia. PFS Medical History Hemorrhoids with complication Endometrial hyperplasia Heartburn GERD (gastroesophageal reflux disease) Skin lesion of back Kidney stone Vitamin D deficiency Hypothyroidism Surgical History Hx of ventral hernia repair (05/31/24) Hx of unilateral oophorectomy History of surgery Tubal ligation status Hx of colonoscopy Hx of esophagogastroduodenoscopy Family History Father Hypertension Respiratory failure Mother Pancreatic cancer Social History Household Members: Spouse Housing: Apartment Are you a primary medical care manager to a significant other at home: No Do you presently have visiting nurse or other home services: No Alcohol intake: never Patient Tobacco Use Status: Never used Tobacco Second Hand Smoke Exposure: No service: No Current occupational status: employed Current occupation: [employer] program Sexual orientation: Straight/Heterosexual Gender identity: Female Female Reproductive History Menstrual Age of Menarche: 16 Review of Systems Const Denies weight gain and Denies weight loss ENT Reports no additional complaints, Denies dysphagia and Denies odynophagia Card Reports no additional complaints Resp Reports no additional complaints GI Reports abdominal pain (cramping), Denies belching, Denies melena, Denies bloating, Denies change in bowel habits, Reports constipation, Denies dysphagia, Denies excessive flatus, Denies dyspepsia, Denies heartburn, Denies diarrhea, Denies loose stools, Denies nausea, Denies odynophagia and Denies vomiting Reports no additional complaints Musc Reports no additional complaints Neuro Reports no additional complaints Psych Reports no additional complaints Endo Reports no additional complaints Physical Exam Vital Signs: Last Vital Signs Pulse 78 03/13/25 10:23 BP 124/76 03/13/25 10:23 Pulse Ox 98 03/13/25 10:23 Oxygen Delivery Method Room Air 03/13/25 10:23 BMI result Body Mass Index 21.6 Const General: healthy appearing, no acute distress and well developed Nutritional Appearance: well nourished Orientation/consciousness: patient oriented x3 Resp Effort & Inspection: normal respiratory effort, able to speak in complete sentences, no tracheal deviation and symmetric chest movement Auscultation: clear to auscultation bilaterally Cardio Rate: regular rate GI Other: old scars Inspection: No distended Palpation (GI): Soft to palpation, not firm, nontender, no guarding and No hepatosplenomegaly present Auscultation: normal bowel sounds General: Yes no CVA tenderness Back/Spine/Pelvis Back: no CVA tenderness Skin General skin exam: elasticity normal, turgor normal and dry skin Neuro General: patient oriented x3 Psych Appearance: grossly normal Mental Status: mental status grossly normal Assessment & Plan Assessment & Plan (1) H/O resection of large bowel: Code(s): Z90.49 - Acquired absence of other specified parts of digestive tract Category: Surgical (2) Dyspepsia: Code(s): R10.13 - Epigastric pain Category: Surgical (3) Diverticulitis: Code(s): K57.92 - Diverticulitis of intestine, part unspecified, without perforation or abscess without bleeding Category: Medical (4) Chronic idiopathic constipation: Code(s): K59.04 - Chronic idiopathic constipation Category: Medical (5) Diverticulitis large intestine: Code(s): K57.32 - Diverticulitis of large intestine without perforation or abscess without bleeding Category: Surgical Qualifiers: Diverticulitis bleeding: without bleeding Diverticulitis complication: without perforation or abscess Qualified Code(s): K57.32 - Diverticulitis of large intestine without perforation or abscess without bleeding Plan Patient was encouraged to continue MiraLax and Dulcolax. Increase fluid intake and activity to promote better bowel motility. Benign exam today. Abdomen soft without distension. No palpable umbilical/ventral hernias. Patient will follow-up in 6 months, sooner on as needed basis. She is agreeable to this plan and verbalizes understanding of instructions. She was given the opportunity to ask questions and all questions answered. Thank you for allowing me to participate in her care Medications: Refilled bisacodyl 10 mg (2 x 5 mg) PO DAILY 180 tabs 3RF Coding Level of Care Code Est Pt Level 4 (57210) Complex EM visit Add On G2211 Diagnoses H/O resection of large bowel Z90.49 Dyspepsia R10.13 Diverticulitis K57.92 Chronic idiopathic constipation K59.04 Diverticulitis of large intestine without perforation or abscess without bleeding K57.32 Diverticulitis bleeding: without bleeding Diverticulitis complication: without perforation or abscess Time Spent (min) 35 Comment 25 minutes spent with patient and additional 10 minutes spent reviewing her records
[2025-03-13 10:23] VITALS: BP 124/76; PULSE 78; O2SAT 98; BMI 21.6
--- OUTSIDE RECORDS SUMMARY | 2025-03-13 10:50 | XMS_ITS | Encounter Summary ---
Author Organization [facility] Address [address] [facility] [address] [place] [address] Phone Care Team Providers Care Staff Pharmacist Name Role Phone Name, Cedric NICK Primary Care Provider [phone] Encounter Details Date Type Department Care Team (Late Contact Info) Description 02/02/2022 Telephone [facility] [address] [facility] [address] [place] [address] Jasiel Oliver, [address] [address] Social History Tobacco Use Types Packs/Day Years [...] send to Dr Liao. Thank you FAX# [phone] documented in this encounter Plan of Treatment Upcoming Encounters Date Type Department Care Team (Late Contact Info) Description 09/23/2025 10:00 AM EST Office Visit [facility] [address] [phone] Buddy Ortiz MD [address] [phone] documented as of this encounter Visit Diagnoses Not on filedocumented in this encounter Care Teams Staff Pharmacist Relationship Specialty Start Date End Date Name, MD Cedric [address] [place] [phone] PCP - General Internal Medicine 02/02/22 documented as of this encounter
--- OUTSIDE RECORDS SUMMARY | 2025-03-13 10:50 | XMS_ITS | Clinical Summary ---
Author Organization [employer] Address [address] 7t [place] [address] Care Team Providers Care Soda Dispenser Name Role Phone Name, Cedric NICK Primary Care Provider [phone] Allergies Active Allergy Reactions Criticality Noted Date [...] IN WATER AND TAKE ONCE DIRECTED BY [facility] GI DEPT 023 Active Acetaminophen Extra [...] onet of right knee pain. Seen [place] [facility] [place]. Work up included a RLE [...] AM EDT Office Visit [facility] MEDICINE [address] [place] [address] Cedric Liao MD Osteoarthritis of right knee, unspecified osteoarthritis type (Primary Dx); Seasonal allergic rhinitis, unspecified trigger; Acquired hypothyroidism; High cholesterol; Proteinuria, unspecified type 03/12/2025 Travel 03/11/[address] [facility] MEDICINE [address] [place] [address] Cedric Liao MD Chart Prep 02/18/[address] [facility] WALK-IN [address] [address] Cedric Liao MD Acquired hypothyroidism 02/06/[address] [address] Amber David, RN Results 02/05/2025 1:00 PM EDT Office Visit [facility] WALKIN [address] [address] Sebas Rajan MD Acute pain of right knee (Primary Dx) 02/05/2025 Orders Only [facility] MEDICINE [address] [place] [phone] Sebas Rajan MD 01/29/[address] [facility] ADULT DENTAL [address] [place] [address] Iza Dial 01/03/2025 Orders Only [facility] External Provider, [facility] 12/14/2024 9:00 AM EST Office Visit [address] [address] Alonso Robles MD Seborrheic keratosis (Primary Dx) [...] Description 09/18/2025 3:00 PM EST Office Visit [facility] ADULT DENTAL [address] [place] [address] Jayro, Iza [address] [place] [address] Health Maintenance Due Date Last Done Comments [...] Free T4 1.70 0.32 - 4.0 uIU/mL [facility] Blood Venous blood specimen / Unknown 03/12/2025 11:17 AM EDT 03/12/2025 1:10 PM EDT us Cedric Name MD LAB BLOOD ORDERABLES Final Resul t [facility] [address] [place] [phone] * (ABNORMAL) Lipid Panel, Standard (03/12/2025 11:17 AM EDT) Triglycerides 313(H) <150 mg/dL [facility] Comment:Desirable Triglyceri de: less than 150 mg/dLBorderline High Triglyceride 150-199 mg/dLHigh Triglyceride: 200-499 mg/dLVery High Triglyceride: greater than or equal to 5OO mg/dL Cholesterol 205(H) <200 mg/dL [facility] Comment:Desirable Cholestero l: less than 200 mg/dLBorderline High Cholesterol: 200-239 mg/dLHigh Cholesterol: greater than 239 mg/dL LDL Cholesterol Calculated 102(H) <100 mg/dL [facility] Comment:Desirable LDL: less than 100 mg/dLNear Optimal/Above Optimal LDL: 110- 129 mg/dLBorderline High LDL: 130-159 mg/dLHigh LDL: 160-189 mg/dLVery High LDL: greater than or equal to 190 mg/dL HDL Cholesterol 41 >40 mg/dL [facility] Comment:Desirable HDL: great er than 40 mg/dL Note: This HDL assay may give artificially low results in patients with liver disease. Blood Venous blood specimen / Unknown 03/12/2025 11:17 AM EDT 03/12/2025 1:10 PM EDT Cedric Liao MD LAB BLOOD ORDERABLES Final Resul t Performing Organization Address City/[facility]/ZIP Co de Phone Number [facility] [address] [place] [address] [phone] * Slide Review (02/05/2025 1:37 PM EDT) Slide Review VERIFIED [facility] 02/05/2025 1:37 PM EDT 02/05/2025 4:24 PM EDT Sebas Henry MD LAB BLOOD ORDERABLES Final Result Performing Organization Address [facility] Co de Phone Number [facility] [address] [place] [address] [phone] * Vitamin D, 25-Hydroxy, Total, Immunoassay (02/05/2025 1:37 PM EDT) Vitamin D 25-OH Total 54.6 >30 ng/mL [facility] Comment: Health Based Reference Values*< 20 ??ng/mL ??Sdkziudxn59-08 ng/mL ??Insufficient> 30 ??ng/mL ??Sufficient*Deneen JUAREZ. N [...] ORDERABLES Final Resul t Performing Organization Address [facility] Co de Phone Number [facility] [address] [place] [phone] * Creatinine, Serum (02/05/2025 1:37 PM EDT) Creatinine, Serum 0.74 0.5 - 1.4 mg/dL [facility] Estimated Glomerular Filt Rate >60 [facility] Comment:Chronic Kidney Disea se: Estimated GFR < 60 mL/min/1.62o2Szardb Kidney Disease: Estimated GFR < 15 mL/min/1.73m2 02/05/2025 1:37 PM EDT 02/05/2025 4:24 PM EDT us Generic External Data Provider LAB BLOOD ORDERAB LES Final Result Performing Organization Address [facility] Co de Phone Number [facility] [address] [place] [phone] * (ABNORMAL) CBC auto differential (02/05/2025 1:37 PM EDT) White Blood Count 6.4 4.8 - 10.8 X10*3/uL [facility] Red Blood Count 4.12(L) 4.20 - 5.50 X10*6/uL [facility] Hemoglobin 11.8(L) 12.0 - 16.0 g/dl [facility] Hematocrit 35.6(L) 37.0 - 47.0 % [facility] Mean Corpuscular Volume 86.4 80.0 - 98.0 fL [facility] Mean Corpuscular Hemoglobin 28.6 27.0 - 33.0 pg [facility] Mean Corpuscular HGB Conc 33.1 31.0 - 35.0 g/dl [facility] Red Cell Distribution Width 13.1 11.0 - 16.0 % [facility] Platelet Count 172 160 - 400 X10*3/uL [facility] Mean Platelet Volume 13.0(H) 9.4 - 12.3 fL [facility] Neutrophils Percent Auto 50.0 45 - 73 % [facility] Imm Gran Pct Auto 0.5(H) 0.0 - 0.4 % [facility] Lymphocytes Percent Auto 38.5 20 - 40 % [facility] Monocytes Percent Auto 7.8 2 - 11 % [facility] Eosinophils Percent Auto 1.6 0 - 4 % [facility] Basophils Percent Auto 1.6 0 - 2 % [facility] NRBC Pct Auto 0.0 0.0 - 0.2 /100WBC [facility] Neutrophils Absolute Auto 3.2 2.0 - 8.3 x10*3/uL [facility] Imm Gran Abs Auto 0.03 0.00 - 0.03 X10*3/uL [facility] Lymphocytes Absolute Auto 2.5 1.2 - 4.9 X10*3/uL [facility] Monocytes Absolute Auto 0.5 0.1 - 1.2 X10*3/uL [facility] Eosinophils Absolute Auto 0.1 0.0 - 0.4 X10*3/uL [facility] Basophils Absolute Auto 0.1 0.0 - 0.2 X10*3/uL [facility] NRBC Abs Auto 0.000 0.0 - 0.012 X10*3/uL [facility] Blood Venous blood specimen / Unknown 02/05/2025 1:37 PM EDT 02/05/2025 4:24 PM EDT us Sebas Henry MD LAB BLOOD ORDERABLES Edited Result - Final [facility] [address] [place] [phone] [phone] * (ABNORMAL) Uric acid (02/05/2025 1:37 PM EDT) Uric Acid 6.8(H) 2.4 - 5.7 mg/dL [facility] Blood Venous blood specimen / Unknown 02/05/2025 1:37 PM EDT 02/05/2025 4:24 PM EDT us Sebas Henry MD LAB BLOOD ORDERABLES Final Result Performing Organization Address [facility] Co de Phone Number [facility] [address] [place] [phone] [phone] * BUN (Blood Urea Nitrogen) (02/05/2025 1:37 PM EDT) Urea Nitrogen (BUN) 14 9 - 16 mg/dL [facility] 02/05/2025 1:37 PM EDT 02/05/2025 4:24 PM EDT us Generic External Data Provider LAB BLOOD ORDERAB LES Final Result Performing Organization Address [facility] de Phone Number [facility] [address] [place] [address] [phone] * XR Knee 4+ Views Right (02/05/2025 1:11 PM EDT) Anatomical Region Laterality Modality Lower Extremities, Knee Right Radiogra phic Imaging 02/05/2025 1:11 PM EDT Narrative 02/05/2025 1:40 PM EDT ?[facility] ?[address] ?[place] [address] ?XRay Report ? Signed ? Patient: Suraj Ruelas,Maryann A ?MR ?? #: [id number] ? : 1970 ?Acct:[id number] ? Age/Sex: 54 / F ?ADM Date: 03/25/25 ? Loc: HO.HHCX ? Attending Dr: Sebas Felix MD ? Ordering Physician: Sebas Felix MD ?? Date of Service: 02/05/25 ?? Procedure(s): XR knee RT 4V ?? Accession Number(s): [id number] ? cc: Sebas Felix MD ? EXAMINATION: [...] DD/ 1311 ? TD/TT: 02/05/25 1320 ? Industrial Sales Representative: ? Procedure Note Asha, Image - 02/05/2025 [place] [address] XRay Report Signed Patient: Maryann Tan AMR #: [id number] : 1970Acct:[id number] Age/Sex: 54 / FADM Date: 02/05/25 Loc: HO.HHCX Attending Dr: Sebas Felix MD Ordering Physician: Sebas Felix MD Date of Service: 02/05/25 Procedure(s): XR knee RT 4V Accession Number(s): [id number] cc: Sebas Felix MD EXAMINATION: XR KNEE [...] 02/05/25 1335 DD/ 1311 TD/TT: 02/05/25 1320 Industrial Sales Representative: us Sebas Henry MD IMG XR PROCEDURES Robi tawnya Result - Final * US VENOUS DUPLEX LE RT (02/02/2025 5:28 PM EDT) Anatomical Region Laterality Modality Abdomen Ultrasound 02/02/2025 5:28 PM EDT Narrative 02/02/2025 5:30 PM EDT ? [facility] ?[address] ?[place] [address] ? Ultrasound Report ? Signed ? Patient: Maryann Tan ?MR ?? #: [id number] ? : 1970 ?Acct:[id number] ? Age/Sex: 54 / F ?ADM Date: 02/02/25 ? Loc: HO.ED ? Attending Dr: ? Ordering Physician: Keysha Courtney CNP ?? Date of Service: 02/02/25 ?? Procedure(s): US venous duplex LE RT ?? Accession Number(s): [id number] ? cc: Keysha Courtney CNP; Name,Cedric NICK [...] DD/ 1728 ? TD/TT: 02/02/25 1728 ? Industrial Sales Representative: ? Procedure Note Donbonnie, Molly - 02/02/2025 [place] [address] Ultrasound Report Signed Patient: Maryann Tan AMR #: [id number] : 1970Acct:[id number] Age/Sex: 54 / FADM Date: 02/02/25 Loc: HO.ED Attending Dr: Ordering Physician: Keysha Courtney CNP Date of Service: 02/02/25 Procedure(s): US venous duplex LE RT Accession Number(s): [id number] cc: Keysha Courtney CNP; Name,Cedric NICK CLINICAL [...] MD in OV> 02/02/259 DD/ TD/TT: 02/02/258 Industrial Sales Representative: us [facility] External Provider IMG US PROCEDURES Edited Result - Final * US Abdomen Limited (01/07/2025 11:35 PM EST) Anatomical Region Laterality Modality Abdomen Ultrasound 01/07/2025 11:3 5 PM EST Narrative 01/07/2025 11:36 PM EST ? [facility] ?[address] ?[place] [address] ? Ultrasound Report ? Signed ? Patient: Ruelas Ruelas,Crecencia A ?MR ?? #: [id number] ? : 1970 ?Acct:[id number] ? Age/Sex: 54 / F ?ADM Date: 01/03/25 ? Loc: HO.US ? Attending Dr: Kushal Araya MD ? Ordering Physician: Kushal Araya MD ?? Date of Service: 01/03/25 ?? Procedure(s): US abdomen limited ?? Accession Number(s): [id number] ? cc: Name,Cedric NICK; Kushal Araya MD [...] on ?? 01/07/2025 23:35:26 ? Dictated By: ?Candelraio Gabriel MD ? Signed By: ?<Electronically signed by Candelario Gabriel MD in OV> ? 01/07/25 2336 ? DD/ ? TD/TT: 01/07/252334 ? Industrial Sales Representative: ? Procedure Note Asha, Image - 01/07/[address] [address] Ultrasound Report Signed Patient: Maryann Tan AMR #: [id number] : 1970Acct:[id number] Age/Sex: 54 / FADM Date: 01/03/25 Loc: HO.US Attending Dr: Kushal Araya MD Ordering Physician: Kushal Araya MD Date of Service: 01/03/25 Procedure(s): US abdomen limited Accession Number(s): [id number] cc: Cedric Liao MD; Kushal Araya MD [...] in OV> 01/07/252335 DD/ 34 TD/TT: 01/07/252334 Industrial Sales Representative: [facility] External Provider IMG US PROCEDURES Edited Result - Final * Hepatitis C Antibody with Reflex to HCV, RNA, Quantitative, Real-Time PCR (10/03/2024 11:20 AM EST) Hepatitis C Antibody Nonreactive Nonreactive [facility] Comment:Antibodies to HCV no t detected; does not exclude early acuteHCV infection. Blood Venous blood specimen / Unknown 10/03/2024 11:20 AM EST 10/03/2024 1:16 PM EST Cedric Liao MD LAB BLOOD ORDERABLES Final Resul t [facility] [address] [place] [address] [phone] * HIV-1/2 Antigen and Antibodies, Fourth Generation, with Reflexes (10/03/2024 11:20 AM EST) HIV AB/AG Nonreactive Nonreactive [facility] Comment:HIV-1 p24 Ag and/or HIV-1/HIV-2 Ab not detected.A test result that is nonreactive does not exclude thepossibility of exposure to or infection with HIV-1 and/orHIV-2. Nonreactive results in this assay for individualswith prior exposure to HIV-1 and/or HIV-2 may be due toantigen and antibody levels that are below the limit ofdetection of this assay.The [employer] HIV Ag/Ab Combo assay result andsupplemental assay results should be interpreted inconjunction with the patient's clinical presentation,history and other laboratory results. If the results areinconsistent with clinical evidence, additional testing issuggested to confirm the result. Blood Venous blood specimen / Unknown 10/03/2024 11:20 AM EST 10/03/2024 1:16 PM EST us Cedric Liao MD LAB BLOOD ORDERABLES Final Resul t [facility] [address] [place] [phone] * BI Mammogram Screening Tomosynthesis Bilateral (05/25/2024 12:45 PM EDT) Anatomical Region Laterality Modality Breast Bilateral Mammography 05/25/2024 12:4 5 PM EDT Narrative 06/19/2024 9:18 PM EDT ? [facility] [place] ? [address] ?[place] [address] ? Mammography Report ? Signed ? Patient: Maryann Tan A ?MR ?? #: [id number] ? : 1970 ?Acct:[id number] ? Age/Sex: 54 / F ?ADM Date: 07/12/24 ? Loc: HO.MAMMO ? Attending : Cedric Name MD ? Ordering Physician: Name,Cedric MD ?Results: 0Incomplet ?? e: Needs Additional Imaging Evaluation ? Date of Service: 05/25/24 ?Follow Up: Additional Imagi ?? ng ? Procedure(s): MM tomosynthesis screening BI ?? Accession Number(s): [id number] ? cc: Name,Cedric NICK ? EXAMINATION: ?? [...] 06/19/242101 ? DD/ 1245 ? TD/TT: ? Industrial Sales Representative: ? Procedure Note Donotuseinterpreter, Image - 06/19/2024 [facility] [address] [place], [place] [address] Mammography Report Signed Patient: Maryann Tan AMR #: [id number] : 1970Acct:[id number] Age/Sex: 54 / FADM Date: 05/25/24 Loc: HO.MAMMO Attending Dr: Cedric Liao MD Ordering Physician: Cedric Liaoesults: 0Incomplet e: Needs Additional Imaging Evaluation Date of Service: 05/25/24Follow Up: Additional Imagi ng Procedure(s): MM tomosynthesis screening BI Accession Number(s): [id number] cc: Cedric Liao MD EXAMINATION: MM SCREENING [...] in OV> 06/19/24 2102 DD/ 1245 TD/TT: Industrial Sales Representative: Cedric Liao MD IMG BI PROCEDURES Edited Result - Final * (ABNORMAL) Colonoscopy (07/21/2023) Colonoscopy Abnormal(A ) Normal us Cedric Liao MD HEALTH MAINTENANCE Final Result * Pap Smear (12/24/2019) Pap Negative for intraephithelial lesion or malignancy Negative for intraephithelial lesion or malignancy, Other HPV Undetected 12/24/2019 [facility] Provider HEALTH MAINTENANCE Final Result from Last 3 Months or Most Recently Relevant to Health Maintenance [place] [address] [place] [address] * Guarantor: Maryann Tan Account Type Relation to Patient Date of Phone Billing Address Dental Self 1970 [address] [place] [address] DENTAL - HSN PARTIAL (MEDICAID) * Guarantor: Maryann Tan Account Type Relation to Patient Date of Phone Billing Address Personal/Family Self [address] [place] [address] * Guarantor: Maryann Tan A Account Type Relation to Patient Date of Phone Billing Address Personal/Family Self [address] [place] [address] * Guarantor: Maryann Tan Account Type Relation to Patient Date of Phone Billing Address Personal/Family Self [address] [place] [address] Care Teams Soda Dispenser Relationship Specialty Start Date End Date Name, MD Cedric [address] [place] [phone] PCP - General Family Medicine 04/06/16
--- OUTSIDE RECORDS SUMMARY | 2025-03-13 10:50 | XMS_ITS | Clinical Summary ---
Author Organization [facility] Address [address] [place] [address] Phone Care Team Providers Care Press Feeder Broomcorn Name Role Phone Name, Cedric NICK Primary Care Provider [phone] Allergies Active Allergy Reactions Criticality Noted Date [...] each day 09/30/2021 Active Deep Sea Nasal Bussey 0.65 % nasal spray 11/04/2021 Active polyethylene [...] [facility] [address] [phone] Buddy Ortiz MD [address] [phone] Health Maintenance Due Date Last [...] 09/11/2021, 09/16/2020, 08/09/2018, Additional history exists Insurance [employer] ([id number]) [employer] [facility] ([id number]) Care Teams Press Feeder Broomcorn Relationship Specialty Start Date End Date Name, MD Cedric [address] [place] [phone] PCP - General Internal Medicine 02/02/22
--- OUTSIDE RECORDS SUMMARY | 2025-03-13 10:50 | XMS_ITS | Encounter Summary ---
Author Organization [employer] Address [address] [facility] 7t [place] [address] Care Team Providers Care Kettle Operator Head Name Role Phone Name, Cedric NICK Primary Care Provider [phone] Encounter Details Date Type Department Care Team (Late st Contact Info) Description 04/25/2023 Abstract [facility] MEDICINE [address] [place] [address] Name, MD Cedric [address] [place] [address] Social History Tobacco Use Types Packs/Day Years [...] Description 09/18/2025 3:00 PM EST Office Visit [facility] ADULT DENTAL [address] [place] [address] JayroIza lockett [address] [place] [address] documented as of this encounter Procedures Procedure [...] EDT Recommended 5 year follow up ( [facility]) Historical Provider HEALTH MAINTENANCE Final Result documented in this encounter Visit Diagnoses Not on filedocumented in this encounter Additional Health Concerns Assessment Noted Time PHQ-9 Depression Total Score: 0 11/19/19 23 1:50 PM EST documented as of this encounter Care Teams Kettle Operator Head Relationship Specialty Start Date End Date Name, MD Cedric [address] [place] [address] PCP - General Family Medicine 04/06/16 documented as of this encounter
--- OUTSIDE RECORDS SUMMARY | 2025-03-13 10:50 | XMS_ITS | Encounter Summary ---
Author Organization [employer] Address [address] [place] [address] Care Team Providers Care Filament Wound Parts Fabricator Name Role Phone Name, Cedric NICK Primary Care Provider [phone] Encounter Details Date Type Department Care Team [...] Description 09/18/2025 3:00 PM EST Office Visit [facility] ADULT DENTAL [address] [place] [address] JayroJoshIza [address] [place] [address] documented as of this encounter Visit Diagnoses Not on filedocumented in this encounter Additional Health Concerns Assessment Noted Time PHQ-9 Depression Total Score: 0 02/20/20 24 10:24 AM EDT documented as of this encounter Care Teams Filament Wound Parts Fabricator Relationship Specialty Start Date End Date Name, MD Cedric [address] [place] [address] PCP - General Family Medicine 04/06/16 documented as of this encounter
--- OUTSIDE RECORDS SUMMARY | 2025-03-13 10:50 | XMS_ITS | Encounter Summary ---
Author Organization [employer] Address [address] [place] [address] Care Team Providers Care Anesthetist Name Role Phone Name, Cedric NICK Primary Care Provider Encounter Details Date Type Department Care Team ([facility] st Contact Info) Description 09/23/2023 Orders Only [facility] MEDICINE [address] [place], [place] [phone] Name, MD Cedric [address] [place] [address] Social History Tobacco Use Types Packs/Day Years [...] 09/18/2025 3:00 PM EST Office Visit [facility] ADULT DENTAL [address] [place] [address] Iza Dial [address] [place] [address] documented as of this encounter Visit Diagnoses Not on filedocumented in this encounter Additional Health Concerns Assessment Noted Time PHQ-9 Depression Total Score: 0 11/19/19 23 1:50 PM EST documented as of this encounter Care Teams Anesthetist Relationship Specialty Start Date End Date Name, MD Cedric [address] [place] [address] PCP - General Family Medicine 04/06/16 documented as of this encounter
--- OUTSIDE RECORDS SUMMARY | 2025-03-13 10:51 | XMS_ITS | Encounter Summary ---
Author Organization [employer] Address [address] [place] [address] Care Team Providers Care Undergraduate Internship Name Role Phone Name, Cedric NICK Primary Care Provider [phone] Reason for Visit * Reason Onset Date Comments Chart Prep 03/11/2025 Encounter Details Date Type Department Care Team ([facility] st Contact Info) Description 03/11/2025 Telephone [facility] [address] [place], [place] [phone] Name, MD Cedric [address] [place] [address] Chart Prep Social History Tobacco Use Types [...] Description 09/18/2025 3:00 PM EST Office Visit [facility] ADULT DENTAL [address] [place] [address] Jayro, Zia [address] [place] [address] documented as of this encounter Visit Diagnoses Not on filedocumented in this encounter Additional Health Concerns Assessment Noted Time PHQ-9 Depression Total Score: 0 02/20/20 24 10:24 AM EDT documented as of this encounter Care Teams Undergraduate Internship Relationship Specialty Start Date End Date Name, MD Cedric [address] [place] [address] PCP - General Family Medicine 04/06/16 documented as of this encounter
--- OUTSIDE RECORDS SUMMARY | 2025-03-13 10:51 | XMS_ITS | Encounter Summary ---
Author Organization [employer] Address [address] [facility] 7t [place] [address] Care Team Providers Care Tank Erector Name Role Phone Name, Cedric NICK Primary Care Provider [phone] Encounter Details Date Type Department Care Team (Latest Contact Info) Description 04/01/2022 Abstract [facility] CONVERSIONS Dental, Provider, DDS Social History [...] Description 09/18/2025 3:00 PM EST Office Visit [facility] ADULT DENTAL [address] [place] [address] Jayro, Iza [address] [place] [address] documented as of this encounter Visit Diagnoses Not on filedocumented in this encounter Care Teams Tank Erector Relationship Specialty Start Date End Date Name, MD Cedric [address] [place] [address] PCP - General Family Medicine 04/06/16 documented as of this encounter
--- OUTSIDE RECORDS SUMMARY | 2025-03-13 10:51 | XMS_ITS | Encounter Summary ---
Author Organization [employer] Address [address] [place] [address] Care Team Providers Care Tour Bus Driver Name Role Phone Name, Cedric NICK Primary Care Provider Reason for Visit * Reason Comments Follow-up Encounter Details Date Type Department Care Team (Latest Contact Info) Description 03/12/2025 10:45 AM EDT Office Visit [facility] [address] [place] [address] [phone] Name, MD Cedric [address] [place] [address] Osteoarthritis of right knee, unspecified osteoarthritis type [...] 09/18/2025 3:00 PM EST Office Visit [facility] ADULT DENTAL [address] [place], [place] [phone] Jayro, Iza [address] [place] [address] documented as of this encounter Procedures Procedure Name Priority Date/Time Associated Diagnosis Comments TSH W/REFLEX TO FT4 Routine 03/12/2025 11:17 AM EDT Acquired hypothyroidism LIPID PANEL, STANDARD Routine 03/12/2025 11:17 AM EDT High cholesterol documented in this encounter Results * (ABNORMAL) Lipid Panel, Standard (03/12/2025 11:17 AM EDT) Triglycerides 313(H) <150 mg/dL [facility] Comment:Desirable Triglyceri de: less than 150 mg/dLBorderline High Triglyceride 150-199 mg/dLHigh Triglyceride: 200-499 mg/dLVery High Triglyceride: greater than or equal to 5OO mg/dL Cholesterol 205(H) <200 mg/dL [facility] Comment:Desirable Cholestero l: less than 200 mg/dLBorderline High Cholesterol: 200-239 mg/dLHigh Cholesterol: greater than 239 mg/dL LDL Cholesterol Calculated 102(H) <100 mg/dL [facility] Comment:Desirable LDL: less than 100 mg/dLNear Optimal/Above Optimal LDL: 110- 129 mg/dLBorderline High LDL: 130-159 mg/dLHigh LDL: 160-189 mg/dLVery High LDL: greater than or equal to 190 mg/dL HDL Cholesterol 41 >40 mg/dL [facility] Comment:Desirable HDL: great er than 40 mg/dL Note: This HDL assay may give artificially low results in patients with liver disease. Blood Venous blood specimen / Unknown 03/12/2025 11:17 AM EDT 03/12/2025 1:10 PM EDT us Cedric Liao MD LAB BLOOD ORDERABLES Final Resul t Performing Organization Address [facility] Co de Phone Number [facility] [address] [place] [phone] * TSH W/Reflex to FT4 (03/12/2025 11:17 AM EDT) TSH reflex Free T4 1.70 0.32 - 4.0 uIU/mL [facility] Blood Venous blood specimen / Unknown 03/12/2025 11:17 AM EDT 03/12/2025 1:10 PM EDT us Cedric Liao MD LAB BLOOD ORDERABLES Final Resul t Performing Organization Address [facility] de Phone Number [facility] [address] [place] [phone] documented in this encounter Visit Diagnoses Diagnosis Osteoarthritis of right knee, unspecified osteoarthritis type- Primary Seasonal allergic rhinitis, unspecified trigger Acquired hypothyroidism Unspecified hypothyroidism High cholesterol Pure hypercholesterolemia Proteinuria, unspecified type documented in this encounter Additional Health Concerns Assessment Noted Time PHQ-9 Depression Total Score: 0 02/20/20 24 10:24 AM EDT documented as of this encounter Care Teams Tour Bus Driver Relationship Specialty Start Date End Date Name, MD Cedric [address] [place] [address] PCP - General Family Medicine 04/06/16 documented as of this encounter
== END 2025-03-13 10:39 | disposition home or self-care (01) ==
LOC: HO.HGI 09:54
PROVIDERS: PCP Internal Medicine Geriatric Medicine; Visit Provider Nurse Practitioner Family
DX: Z90.49 Acquired absence of other specified parts of digestive tract (principal); R10.13 Epigastric pain; K57.92 Diverticulitis of intestine, part unspecified, without perforation or abscess without bleeding; K59.04 Chronic idiopathic constipation; K57.32 Diverticulitis of large intestine without perforation or abscess without bleeding
CPT/HCPCS: 99214; G2211

== ENCOUNTER → 2025-03-13 09:53 | Outpatient (BNVA) | payer OTHER, SELFPAY | PROVIDERS: PCP Internal Medicine Geriatric Medicine; Visit Provider Nurse Practitioner Family | DX: K21.9 Gastro-esophageal reflux disease without esophagitis (principal); K59.04 Chronic idiopathic constipation; R10.13 Epigastric pain; Z90.49 Acquired absence of other specified parts of digestive tract; Z87.19 Personal history of other diseases of the digestive system | CPT/HCPCS: 99212 ==

== ENCOUNTER 2025-03-21 09:21 | Outpatient (REF) | payer OTHER, SELFPAY ==
--- OUTSIDE RECORDS SUMMARY | 2025-03-26 09:52 | XMS_ITS | Encounter Summary ---
Author Organization [employer] Address [address] [place] [address] Care Team Providers Care Cath Lab Manager Name Role Phone Name, Cedric NICK Primary Care Provider [phone] Encounter Details Date Type Department Care Team (Latest Contact Info) Description 04/01/2022 Abstract [facility] CONVERSIONS Dental, Provider, DDS Social History [...] Upcoming Encounters Date Type Department Care Team ( st Contact Info) Description 06/27/2025 10:30 AM EDT Office Visit [facility] [address] [place] [address] Cedric Liao MD [address] [place] [address] 09/18/2025 3:00 PM EST Office Visit [facility] ADULT D[facility] [address] [place] [address] Josh Dialaris [address] [place] [address] documented as of this encounter Visit Diagnoses Not on filedocumented in this encounter Care Teams Cath Lab Manager Relationship Specialty Start Date End Date Cedric Liao MD [address] [place] [address] PCP - General Family Medicine 04/06/16 documented as of this encounter
--- OUTSIDE RECORDS SUMMARY | 2025-03-26 09:52 | XMS_ITS | Encounter Summary ---
Author Organization [employer] Address [address] [facility] [address] [place] [address] Care Team Providers Care Woodworking Machine Setter Name Role Phone Name, Cedric NICK Primary Care Provider [phone] Encounter Details Date Type Department Care Team (Late st Contact Info) Description 04/25/2023 Abstract [facility] MEDICINE [address] [place] [address] [phone] Cedric Liao MD [address] [place] [phone] Social History Tobacco Use Types Packs/Day Years [...] Care Team (Late st Contact Info) Description 06/27/2025 10:30 AM EDT Office Visit [facility] MEDICINE [address] [place] [address] [phone] Cedric Liao, MD [address] [place] [address] 09/18/2025 3:00 PM EST Office Visit [facility] ADULT DENTAL [address] [place] [phone] Iza Dial [address] [place] [phone] documented as of this encounter Procedures Procedure Name Priority Date/Time Associated Diagnosis Comments PAP/HPV Routine 12/24/2019 COLONOSCOPY Routine 05/25/2018 3:17 PM EDT documented in this encounter Results * Pap Smear (12/24/2019) Pap Negative for intraephithelial lesion or malignancy Negative for intraephithelial lesion or malignancy, Other HPV Undetected 12/24/2019 us Historical Provider HEALTH MAINTENANCE Final Result * Colonoscopy (05/25/2018 3:17 PM EDT) Colonoscopy Normal Normal Narrative Annette Duenas - 05/25/2018 3:17 PM EDT Recommended 5 year follow up ( [facility]) us Historical Provider HEALTH MAINTENANCE Final Result documented in this encounter Visit Diagnoses Not on filedocumented in this encounter Additional Health Concerns Assessment Noted Time PHQ-9 Depression Total Score: 0 11/19/19 23 1:50 PM EST documented as of this encounter Care Teams Woodworking Machine Setter Relationship Specialty Start Date End Date Name, MD Cedric [address] [place] [address] PCP - General Family Medicine 04/06/16 documented as of this encounter
--- OUTSIDE RECORDS SUMMARY | 2025-03-26 09:52 | XMS_ITS | Clinical Summary ---
Author Organization [employer] Address [address] [facility] [address] [place] [address] Care Team Providers Care Geography Teacher Name Role Phone Name, Cedric NICK Primary Care Provider [phone] Allergies Active Allergy Reactions Criticality Noted Date [...] IN WATER AND TAKE ONCE DIRECTED BY [facility] GI DEPT 05/31/20 23 Active Acetaminophen Extra Strength 500 MG tabletIndications: Acquired hypothyroidism TAKE 2 TABLETS BY MOUTH EVERY 8 HOURS NEEDED fevor OR FOR PAIN 90 tablet 07/04/20 24 Active omeprazole (PriLOSEC) [address] capsule Take 1 capsule by mouth Once per day. 02/20/20 24 Active meloxicam (Mobic) 15 MG tabletIndications: Acute pain of right knee Take 1 tablet (15 mg) by mouth Once per day. 30 tablet 11 02/06/20 026 Active levothyroxine (Synthroid, Levoxyl) 75 MCG tabletIndications: Acquired hypothyroidism TAKE 1 TABLET BY MOUTH EVERY DAY BEFORE BREAKFAST 90 tablet 1 02/20/20 25 Active fluticasone (Flonase) 50 MCG/ACT nasal sprayIndications:S easonal allergic rhinitis, unspecified trigger Administer 2 sprays into each nostril Once per day. Shake gently. Before first use, prime pump. After use, clean tip and replace cap. 16 g 2 03/12/20 25 Active cetirizine (ZyrTEC) 10 MG tablet Take 1 tablet (10 mg) by mouth Once per day. 30 tablet 2 03/12/20 025 Active empagliflozin (Jardiance) 10 MG Take 1 tablet (10 mg) by mouth Once per day. 03/12/20 026 Active loratadine (Claritin) 10 MG tabletIndications: Seasonal allergic rhinitis, unspecified trigger Take 1 tablet (10 mg) by mouth Once per day. 30 tablet 11 03/12/20 025 Discontin ued(Thera py completed ) Active Problems Problem Noted Date Diagnosed Date Acute pain of right knee 02/05/2025 Assessment & Plan (02/05/2025 1:05 PM EDT): Patient of Name here with c/o new onet of right knee pain. Seen at [facility] 02/02/2025. Work up included [...] Encounters Date Type Department Care Team Description 03/24/2025 Orders Only [facility] External Provider, [facility] 03/20/[address] [address] Alanis Pinto [place] regina recall 03/19/[address] [address] Radha Sharp, MINE 03/12/2025 10:45 AM EDT Office Visit [address] [address] Cedric Liao MD Osteoarthritis of right knee, unspecified osteoarthritis type (Primary Dx); Seasonal allergic rhinitis, unspecified trigger; Acquired hypothyroidism; High cholesterol; Proteinuria, unspecified type 03/12/2025 Travel 03/11/[address] [address] Cedric Liao MD Chart Prep 02/18/2025 Refill [facility] [address] [address] Cedric Liao MD Acquired hypothyroidism 02/06/[address] [address] Amber David, RN Results 02/05/2025 1:00 PM EDT Office Visit [facility] [address] [address] Sebas Rajan MD Acute pain of right knee (Primary Dx) 02/05/2025 Orders Only [facility] [address] [place] [address] Sebas Rajan MD 01/29/2025 Telephone [facility] [address] [place] [phone] Iza Dial 01/03/2025 Orders Only [facility] External Provider, [facility] from Last 3 Months Immunizations Name Administration [...] Description 06/27/2025 10:30 AM EDT Office Visit [facility] [address] [place] [address] Name, MD Cedric [address] [place] [address] 09/18/2025 3:00 PM EST Office Visit [facility] [address] [place] [address] Iza Dial [address] [place] [address] Health Maintenance Due Date Last Done Comments [...] 02/20/2024 Dental X-Ray: Full Mouth 04/02/2025 04/01/2022, 11/11/2015 Dental X-Ray: Bitewings 08/03/2025 08/02/20 24, 04/01/2022, [...] Procedure Name Priority Date/Time Associated Diagnosis Comments MR KNEE WO CONTRAST RIGHT Routine 03/24/2025 10:11 AM EDT LIPID PANEL, STANDARD Routine 03/12/2025 11:17 AM [...] Recently Relevant to Health Maintenance Results * MR Knee w/o Contrast Right (03/24/2025 10:11 AM EDT) Anatomical Region Laterality Modality Magnetic Resonan ce 03/24/2025 10:1 1 AM EDT Narrative 03/25/2025 9:11 AM EDT ? [facility] ?[address] ?[place] [address] ? Magnetic Resonance Report ? Signed ? Patient: Maryann Tan A ?MR ?? #: [id number] ? : 1970 ?Acct:[id number] ? Age/Sex: 54 / F ?ADM Date: 03/24/25 ? Loc: HO.MRI ? Attending Dr: Jase Manning MD ? Ordering Physician: Jase Manning MD ?? Date of Service: 03/24/25 ?? Procedure(s): MR knee RT wo con ?? Accession Number(s): [id number] ? cc: Cedric Liao MD; Jase Manning MD ? EXAMINATION: MRI RIGHT KNEE WITHOUT CONTRAST ? HISTORY: S83.241A - Other tear of medial meniscus, current injury, ?? right knee ? COMPARISON: Correlation is made to plain films of the right knee dated ?? 02/05/2025. ? TECHNIQUE: ??Coronal T1 and fat-suppressed proton density, sagittal ?? proton density and fat-suppressed proton density, and axial fat ?? suppressed T2 weighted MR images of the right knee were obtained. ? FINDINGS: ? Bone marrow: Bone marrow signal intensity is normal. ? Joint effusion: There is no joint effusion. ? Rubi's cyst: There is no Rubi's cyst. ? Articular cartilage: There is moderate osteoarthritis of the ?? patellofemoral compartment with cartilage loss and subchondral marrow ?? changes. Small osteophytes are also noted. The articular cartilage of ?? the medial and lateral compartments is intact. ? Muscles/soft tissues: There is diffuse synovial hypertrophy in the ?? suprapatellar recess and at the posterior aspect of the knee. Multiple ?? 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 ? Anterior cruciate ligament: Intact ? Posterior cruciate ligament: Intact ? Medial collateral ligament: Intact ? Lateral collateral ligament: Intact ? Medial meniscus: Intact ? Lateral meniscus: Intact ? Flexor mechanism: The popliteus, gastrocnemius, and hamstring tendons ?? are intact. ? Quadriceps tendon: Intact ? Patellar tendon: Intact ? Patellar retinacula: Intact ? MR/MR knee RT wo con ?? IMPRESSION: ? 1. 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 ? 2. Moderate osteoarthritis of the patellofemoral compartment. ? Electronically signed by: ??Sarmad Alan MD ??03/25/2025 09:07 AM EDT ? Dictated By: ?Sarmad Alan MD ? Signed By: ?<Electronically signed by Sarmad Alan MD in OV> ?03/25/25 0907 ? DD/ 1011 ? TD/TT: 03/24/25 1021 ? Marketing Research Analyst: ? Procedure Note Asha, Image - 03/25/[address] [address] Magnetic Resonance Report Signed Patient: Maryann Tan AMR #: [id number] : 1970Acct:[id number] Age/Sex: 54 / FADM Date: 03/24/25 Loc: HO.MRI Attending Dr: Jase Manning MD Ordering Physician: Jase Manning MD Date of Service: 03/24/25 Procedure(s): MR knee RT wo con Accession Number(s): [id number] cc: Name,Cedric NICK; Jase Manning MD EXAMINATION: MRI RIGHT KNEE WITHOUT CONTRAST HISTORY: S83.241A - Other tear of medial meniscus, current injury, right knee COMPARISON: Correlation is made to plain films of the right knee dated 02/05/2025. TECHNIQUE: Coronal T1 and fat-suppressed proton density, sagittal proton density and fat-suppressed proton density, and axial fat suppressed T2 weighted MR images of the right knee were obtained. FINDINGS: Bone marrow: Bone marrow signal intensity is normal. Joint effusion: There is no joint effusion. Rubi's cyst: There is no Rubi's cyst. Articular cartilage: There is moderate osteoarthritis of the patellofemoral compartment with cartilage loss and subchondral marrow changes. Small osteophytes are also noted. The articular cartilage of the medial and lateral compartments is intact. Muscles/soft tissues: There is diffuse synovial hypertrophy in the suprapatellar recess and at the posterior aspect of the knee. Multiple hypointense synovial masses are seen in these regions, compatible with pigmented villonodular synovitis (PVNS). Anterior cruciate ligament: Intact Posterior cruciate ligament: Intact Medial collateral ligament: Intact Lateral collateral ligament: Intact Medial meniscus: Intact Lateral meniscus: Intact Flexor mechanism: The popliteus, gastrocnemius, and hamstring tendons are intact. Quadriceps tendon: Intact Patellar tendon: Intact Patellar retinacula: Intact MR/MR knee RT wo con IMPRESSION: 1. 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 2. Moderate osteoarthritis of the patellofemoral compartment. Electronically signed by: Sarmad Alan MD 03/25/2025 09:07 AM EDT Dictated By: Sarmad Alan MD Signed By: <Electronically signed by Sarmad Alan MD in OV> 03/25/25 0907 DD/ 1011 TD/TT: 03/24/25 1021 Marketing Research Analyst: [facility] External Provider IMG MRI PROCEDURES Final Result * TSH W/Reflex to FT4 (03/12/2025 11:17 AM EDT) TSH reflex Free T4 1.70 0.32 - 4.0 uIU/mL [facility] Blood Venous blood specimen / Unknown 03/12/2025 11:17 AM EDT 03/12/2025 1:10 PM EDT us Cedric Liao MD LAB BLOOD ORDERABLES Final Resul t Performing Organization Address [facility] Co de Phone Number [facility] [address] [place] [address] [phone] * (ABNORMAL) Lipid Panel, Standard (03/12/2025 11:17 AM EDT) Triglycerides 313(H) <150 mg/dL [facility] Comment:Desirable Triglyceri de: less than 150 mg/dLBorderline High Triglyceride 150-199 mg/dLHigh Triglyceride: 200-499 mg/dLVery High Triglyceride: greater than or equal to 5OO mg/dL Cholesterol 205(H) <200 mg/dL [facility] Comment:Desirable Cholestero l: less than 200 mg/dLBorderline High Cholesterol: 200-239 mg/dLHigh Cholesterol: greater than 239 mg/dL LDL Cholesterol Calculated 102(H) <100 mg/dL [facility] Comment:Desirable LDL: less than 100 mg/dLNear Optimal/Above Optimal LDL: 110- 129 mg/dLBorderline High LDL: 130-159 mg/dLHigh LDL: 160-189 mg/dLVery High LDL: greater than or equal to 190 mg/dL HDL Cholesterol 41 >40 mg/dL [facility] Comment:Desirable HDL: great er than 40 mg/dL Note: This HDL assay may give artificially low results in patients with liver disease. Blood Venous blood specimen / Unknown 03/12/2025 11:17 AM EDT 03/12/2025 1:10 PM EDT us Cedric Liao MD LAB BLOOD ORDERABLES Final Resul t [facility] [address] [place] [address] [phone] * Slide Review (02/05/2025 1:37 PM EDT) Slide Review VERIFIED [facility] 02/05/2025 1:37 PM EDT 02/05/2025 4:24 PM EDT us Sebas Henry MD LAB BLOOD ORDERABLES Final Result Performing Organization Address [facility] Co de Phone Number [facility] [address] [place] [address] [phone] * Vitamin D, 25-Hydroxy, Total, Immunoassay (02/05/2025 1:37 PM EDT) Vitamin D 25-OH Total 54.6 >30 ng/mL [facility] Comment: Health Based Reference Values*< 20 ??ng/mL ??Qcerslivk49-95 ng/mL ??Insufficient> 30 ??ng/mL ??Sufficient*Deneen JUAREZ. N [...] ORDERABLES Final Resul t Performing Organization Address [facility] Co de Phone Number [facility] [address] [place] [phone] * Creatinine, Serum (02/05/2025 1:37 PM EDT) Pathologist [facility] Creatinine, Serum 0.74 0.5 - 1.4 mg/dL [facility] Estimated Glomerular Filt Rate >60 [facility] Comment:Chronic Kidney Disea se: Estimated GFR < 60 mL/min/1.61m8Vacykd Kidney Disease: Estimated GFR < 15 mL/min/1.73m2 02/05/2025 1:37 PM EDT 02/05/2025 4:24 PM EDT Generic External Data Provider LAB BLOOD ORDERAB LES Final Result Performing Organization Address [facility] Co de Phone Number [facility] [address] [place] [phone] * (ABNORMAL) CBC auto differential (02/05/2025 1:37 PM EDT) Pathologist [facility] White Blood Count 6.4 4.8 - 10.8 X10*3/uL [facility] Red Blood Count 4.12(L) 4.20 - 5.50 X10*6/uL [facility] Hemoglobin 11.8(L) 12.0 - 16.0 g/dl [facility] Hematocrit 35.6(L) 37.0 - 47.0 % [facility] Mean Corpuscular Volume 86.4 80.0 - 98.0 fL [facility] Mean Corpuscular Hemoglobin 28.6 27.0 - 33.0 pg [facility] Mean Corpuscular HGB Conc 33.1 31.0 - 35.0 g/dl [facility] Red Cell Distribution Width 13.1 11.0 - 16.0 % [facility] Platelet Count 172 160 - 400 X10*3/uL [facility] Mean Platelet Volume 13.0(H) 9.4 - 12.3 fL [facility] Neutrophils Percent Auto 50.0 45 - 73 % [facility] Imm Gran Pct Auto 0.5(H) 0.0 - 0.4 % [facility] Lymphocytes Percent Auto 38.5 20 - 40 % [facility] Monocytes Percent Auto 7.8 2 - 11 % [facility] Eosinophils Percent Auto 1.6 0 - 4 % [facility] Basophils Percent Auto 1.6 0 - 2 % [facility] NRBC Pct Auto 0.0 0.0 - 0.2 /100WBC [facility] Neutrophils Absolute Auto 3.2 2.0 - 8.3 x10*3/uL [facility] Imm Gran Abs Auto 0.03 0.00 - 0.03 X10*3/uL [facility] Lymphocytes Absolute Auto 2.5 1.2 - 4.9 X10*3/uL [facility] Monocytes Absolute Auto 0.5 0.1 - 1.2 X10*3/uL [facility] Eosinophils Absolute Auto 0.1 0.0 - 0.4 X10*3/uL [facility] Basophils Absolute Auto 0.1 0.0 - 0.2 X10*3/uL [facility] NRBC Abs Auto 0.000 0.0 - 0.012 X10*3/uL [facility] Blood Venous blood specimen / Unknown 02/05/2025 1:37 PM EDT 02/05/2025 4:24 PM EDT us Sebas Henry MD LAB BLOOD ORDERABLES Edited Result - Final [facility] [address] [place] [address] [phone] * (ABNORMAL) Uric acid (02/05/2025 1:37 PM EDT) Uric Acid 6.8(H) 2.4 - 5.7 mg/dL [facility] Blood Venous blood specimen / Unknown 02/05/2025 1:37 PM EDT 02/05/2025 4:24 PM EDT us Sebas Henry MD LAB BLOOD ORDERABLES Final Result Performing Organization Address [facility] Co de Phone Number [facility] [address] [place] [address] [phone] * BUN (Blood Urea Nitrogen) (02/05/2025 1:37 PM EDT) Urea Nitrogen (BUN) 14 9 - 16 mg/dL [facility] 02/05/2025 1:37 PM EDT 02/05/2025 4:24 PM EDT us Generic External Data Provider LAB BLOOD ORDERAB LES Final Result Performing Organization Address [facility] de Phone Number [facility] [address] [place] [phone] [phone] * XR Knee 4+ Views Right (02/05/2025 1:11 PM EDT) Anatomical Region Laterality Modality Lower Extremities, Knee Right Radiogra phic Imaging 02/05/2025 1:11 PM EDT Narrative 02/05/2025 1:40 PM EDT ?[facility] ?[address] ?[place] [address] ?XRay Report ? Signed ? Patient: Ruelas Ruelas,Crecencia A ?MR ?? #: [id number] ? : 1970 ?Acct:[id number] ? Age/Sex: 54 / F ?ADM Date: 03/25/25 ? Loc: HO.HHCX ? Attending Dr: Sebas Felix MD ? Ordering Physician: Sebas Felix MD ?? Date of Service: 02/05/25 ?? Procedure(s): XR knee RT 4V ?? Accession Number(s): [id number] ? cc: Sebas Felix MD ? EXAMINATION: [...] DD/ 1311 ? TD/TT: 02/05/25 1320 ? Marketing Research Analyst: ? Procedure Note Molly Barry - 02/05/[address] [address] XRay Report Signed Patient: Maryann Tan AMR #: [id number] : 1970Acct:[id number] Age/Sex: 54 / FADM Date: 02/05/25 Loc: HO.HHCX Attending Dr: Sebas Felix MD Ordering Physician: Sebas Felix MD Date of Service: 02/05/25 Procedure(s): XR knee RT 4V Accession Number(s): [id number] cc: Sebas Felix MD EXAMINATION: XR KNEE [...] 02/05/25 1335 DD/ 1311 TD/TT: 02/05/25 1320 Marketing Research Analyst: us Sebas Henry MD IMG XR PROCEDURES Robi tawnya Result - Final * US VENOUS DUPLEX LE RT (02/02/2025 5:28 PM EDT) Anatomical Region Laterality Modality Abdomen Ultrasound 02/02/2025 5:28 PM EDT Narrative 02/02/2025 5:30 PM EDT ? [facility] ?[address] ?[place] [address] ? Ultrasound Report ? Signed ? Patient: Maryann Tan A ?MR ?? #: [id number] ? : 1970 ?Acct:[id number] ? Age/Sex: 54 / F ?ADM Date: 02/02/25 ? Loc: HO.ED ? Attending Dr: ? Ordering Physician: Keysha Courtney CNP ?? Date of Service: 02/02/25 ?? Procedure(s): US venous duplex LE RT ?? Accession Number(s): [id number] ? cc: Keysha Courtney CNP; Name,Cedric NICK [...] DD/ 1728 ? TD/TT: 02/02/25 1728 ? Marketing Research Analyst: ? Procedure Note Donotodiliater, Image - 02/02/[address] [address] Ultrasound Report Signed Patient: Maryann Tan AMR #: [id number] : 1970Acct:[id number] Age/Sex: 54 / FADM Date: 02/02/25 Loc: HO.ED Attending Dr: Ordering Physician: Keysha Courtney CNP Date of Service: 02/02/25 Procedure(s): US venous duplex LE RT Accession Number(s): [id number] cc: Keysha Courtney CNP; Name,Cedric NICK CLINICAL [...] 02/02/25 1729 DD/ 1728 TD/TT: 02/02/25 1728 Marketing Research Analyst: us [facility] External Provider IMG US PROCEDURES Edited Result - Final * US Abdomen Limited (01/07/2025 11:35 PM EST) Anatomical Region Laterality Modality Abdomen Ultrasound 01/07/2025 11:3 5 PM EST Narrative 01/07/2025 11:36 PM EST ? [facility] ?[address] ?[place] [address] ? Ultrasound Report ? Signed ? Patient: Ruelas Ruelas,Beatrizia A ?MR ?? #: [id number] ? : 1970 ?Acct:[id number] ? Age/Sex: 54 / F ?ADM Date: 02/20/25 ? Loc: HO.US ? Attending Dr: Kushal Araya MD ? Ordering Physician: Kushal Araya MD ?? Date of Service: 01/03/25 ?? Procedure(s): US abdomen limited ?? Accession Number(s): [id number] ? cc: Name,Cedric NICK; Kushal Araya MD [...] in OV> ? 01/07/25 2336 ? DD/ 34 ? TD/TT: 01/07/252334 ? Marketing Research Analyst: ? Procedure Note Asha, Molly - 01/07/2025 [place] [address] Ultrasound Report Signed Patient: Maryann Tan AMR #: [id number] : 1970Acct:[id number] Age/Sex: 54 / FADM Date: 01/03/25 Loc: HO.US Attending Dr: Kushal Araya MD Ordering Physician: Kushal Araya MD Date of Service: 01/03/25 Procedure(s): US abdomen limited Accession Number(s): [id number] cc: Cedric Liao MD; Kushal Araya MD [...] in OV> 01/07/252335 DD/ 34 TD/TT: 01/07/252334 Marketing Research Analyst: [facility] External Provider IMG US PROCEDURES Edited Result - Final * Hepatitis C Antibody with Reflex to HCV, RNA, Quantitative, Real-Time PCR (10/03/2024 11:20 AM EST) Hepatitis C Antibody Nonreactive Nonreactive [facility] Comment:Antibodies to HCV no t detected; does not exclude early acuteHCV infection. Blood Venous blood specimen / Unknown 10/03/2024 11:20 AM EST 10/03/2024 1:16 PM EST Cedric Liao MD LAB BLOOD ORDERABLES Final Resul t [facility] [address] [place] [phone] * HIV-1/2 Antigen and Antibodies, Fourth Generation, with Reflexes (10/03/2024 11:20 AM EST) HIV AB/AG Nonreactive Nonreactive [facility] Comment:HIV-1 p24 Ag and/or HIV-1/HIV-2 Ab not detected.A test result that is nonreactive does not exclude thepossibility of exposure to or infection with HIV-1 and/orHIV-2. Nonreactive results in this assay for individualswith prior exposure to HIV-1 and/or HIV-2 may be due toantigen and antibody levels that are below the limit ofdetection of this assay.The Simplify HIV Ag/Ab Combo assay result andsupplemental assay results should be interpreted inconjunction with the patient's clinical presentation,history and other laboratory results. If the results areinconsistent with clinical evidence, additional testing issuggested to confirm the result. Blood Venous blood specimen / Unknown 10/03/2024 11:20 AM EST 10/03/2024 1:16 PM EST us Cedric Name LAB BLOOD ORDERABLES Final Resul t [facility] [address] [place] [phone] [phone] * BI Mammogram Screening Tomosynthesis Bilateral (05/25/2024 12:45 PM EDT) Anatomical Region Laterality Modality Breast Bilateral Mammography 05/25/2024 12:4 5 PM EDT Narrative 06/19/2024 9:18 PM EDT ? [facility] ? [address] ?[place] [address] ? Mammography Report ? Signed ? Patient: Susan Tanyolisquinton Bermudez ?MR ?? #: [id number] ? : 1970 ?Acct:[id number] ? Age/Sex: 54 / F ?ADM Date: 05/25/ ? Loc: HO.MAMMO ? Attending Dr: Cedric Name MD ? Ordering Physician: Name,Cedric MD ?Results: 0Incomplet ?? e: Needs Additional Imaging Evaluation ? Date of Service: 05/25/24 ?Follow Up: Additional Imagi ?? ng ? Procedure(s): MM tomosynthesis screening BI ?? Accession Number(s): [id number] ? cc: Name,Cedric NICK ? EXAMINATION: ?? [...] 06/19/242101 ? DD/ 1245 ? TD/TT: ? Marketing Research Analyst: ? Procedure Note Donleahter, Image - 06/19/2024 [facility] [address] [place] [address] [place] [address] Mammography Report Signed Patient: Maryann Tan AMR #: [id number] : 1970Acct:[id number] Age/Sex: 54 / FADM Date: 05/25/24 Loc: HO.MAMMO Attending Dr: Cedric Liao MD Ordering Physician: Cedric Liaoesults: 0Incomplet e: Needs Additional Imaging Evaluation Date of Service: 05/25/24Follow Up: Additional Imagi ng Procedure(s): MM tomosynthesis screening BI Accession Number(s): [id number] cc: Cedric Liao MD EXAMINATION: MM SCREENING [...] in OV> 06/19/24 2102 DD/ 1245 TD/TT: Marketing Research Analyst: Cedric Liao MD IMG BI PROCEDURES Edited [...] Most Recently Relevant to [place] [id number] [facility] [address] [place] [phone] DENTAL - HSN PARTIAL (MEDICAID) Care Teams Geography Teacher Relationship Specialty Start Date End Date Name, MD Cedric [address] [place] [phone] PCP - General Family Medicine 04/06/16
--- OUTSIDE RECORDS SUMMARY | 2025-03-26 09:52 | XMS_ITS | Clinical Summary ---
Author Organization [facility] Address [address] [facility] [address] [place] [phone] Phone Care Team Providers Care Crib Tender Name Role Phone Name, Cedric NICK Primary Care Provider [phone] Allergies Active Allergy Reactions Criticality Noted Date [...] each day 09/30/2021 Active Deep Sea Nasal Hasty 0.65 % nasal spray 11/04/2021 Active polyethylene [...] [facility] [address] [phone] Buddy Ortiz MD [address] [phone] Health Maintenance Due Date Last [...] 09/11/2021, 09/16/2020, 08/09/2018, Additional history exists Insurance [employer] ([id number]) [facility] ([id number]) Care Teams Crib Tender Relationship Specialty Start Date End Date Name, MD Cedric [address] [place] [phone] PCP - General Internal Medicine 02/02/22
--- OUTSIDE RECORDS SUMMARY | 2025-03-26 09:52 | XMS_ITS | Encounter Summary ---
Author Organization [employer] Address [address] [place] [address] Care Team Providers Care Seal Delivery Vehicle Team Technician Name Role Phone Name, Cedric NICK Primary Care Provider [phone] Encounter Details Date Type Department Care Team ([facility] st Contact Info) Description 03/24/2025 Orders Only [facility] External Provider, [facility] Social History Tobacco Use Types Packs/Day [...] the past 12 months, has t he [employer], gas, oil or water company threatened to [...] Description 06/27/2025 10:30 AM EDT Office Visit [facility] MEDICINE [address] [place] [address] Name, MD Cedric [address] [place] [address] 09/18/2025 3:00 PM EST Office Visit [facility] ADULT DENTAL [address] [place] [address] Iza Dial [address] [place] [address] documented as of this encounter Procedures Procedure Name Priority Date/Time Associated Diagnosis Comments MR KNEE WO CONTRAST RIGHT Routine 03/24/2025 10:11 AM EDT documented in this encounter Results * MR Knee w/o Contrast Right (03/24/2025 10:11 AM EDT) Anatomical Region Laterality Modality Magnetic Resonan ce 03/24/2025 10:1 1 AM EDT Narrative 03/25/2025 9:11 AM EDT ? [facility] ?[address] ?[place] [address] ? Magnetic Resonance Report ? Signed ? Patient: Maryann Tan ?MR ?? #: [id number] ? : 1970 ?Acct:[id number] ? Age/Sex: 54 / F ?ADM Date: 05/11/25 ? Loc: HO.MRI ? Attending Dr: Jase Manning MD ? Ordering Physician: Jase Manning MD ?? Date of Service: 03/24/25 ?? Procedure(s): MR knee RT wo con ?? Accession Number(s): [id number] ? cc: Name,Cedric NICK; Jase Manning MD ? EXAMINATION: MRI RIGHT [...] ??Sarmad Alan MD ??03/25/2025 09:07 AM EDT ?? RP ? Dictated By: ?Sarmad Alan MD ? Signed By: ?<Electronically signed by Sarmad Alan MD in OV> ?03/25/25 0907 ? DD/ 1011 ? TD/TT: 03/24/25 1021 ? Industry Analyst: ? Procedure Note Donotuseinterpreter, Image - 03/25/2025 [place] [address] Magnetic Resonance Report Signed Patient: Maryann Tan AMR #: [id number] : 1970Acct:[id number] Age/Sex: 54 / FADM Date: 03/24/25 Loc: HO.MRI Attending Dr: Jase Manning MD Ordering Physician: Jase Manning MD Date of Service: 03/24/25 Procedure(s): MR knee RT wo con Accession Number(s): [id number] cc: Yanni,Cedric NICK; Jase Manning MD EXAMINATION: MRI RIGHT [...] Joint effusion: There is no joint effusion. Rbui's cyst: There is no Rubi's cyst. Articular [...] 03/25/25 0907 DD/ 1011 TD/TT: 03/24/25 1021 Industry Analyst: [facility] External Provider IMG MRI PROCEDURES Final Result documented in this encounter Visit Diagnoses Not on filedocumented in this encounter Additional Health Concerns Assessment Noted Time PHQ-9 Depression Total Score: 0 02/20/20 24 10:24 AM EDT documented as of this encounter Care Teams Seal Delivery Vehicle Team Technician Relationship Specialty Start Date End Date Name, MD Cedric [address] [place] [address] PCP - General Family Medicine 04/06/16 documented as of this encounter
--- OUTSIDE RECORDS SUMMARY | 2025-03-26 09:52 | XMS_ITS | Encounter Summary ---
Author Organization [employer] Address [address] [place] [address] Care Team Providers Care Supervisor [employer] Name Role Phone Name, Cedric NICK Primary Care Provider [phone] Encounter Details Date Type Department Care Team ([facility] Contact Info) Description 09/23/2023 Orders Only [facility] MEDICINE [address] [place], [place] [phone] Name, MD Cedric [address] [place] [address] Social History Tobacco Use Types Packs/Day Years Used Date Smoking Tobacco: Never Smokeless Tobacco: Never Alcohol Use Standard Drinks/Week Comments Never 0 (1 standard drink = 0.6 oz pur e alcohol) Depression Answer Date Recorded Patient Health Questionnaire-9 Score 0 11/19/2022 Housing Stability Answer Date Recorded What is your housing situation today? I have lnidy aburto 08/31/[address] you [...] Description 06/27/2025 10:30 AM EDT Office Visit [facility] MEDICINE [address] [place] [address] Name, MD Cedric [address] [place] [address] 09/18/2025 3:00 PM EST Office Visit [facility] ADULT DENTAL [address] [place] [address] Jayro, Iza [address] [place] [address] documented as of this encounter Visit Diagnoses Not on filedocumented in this encounter Additional Health Concerns Assessment Noted Time PHQ-9 Depression Total Score: 0 11/19/19 23 1:50 PM EST documented as of this encounter Care Teams Supervisor [employer] Relationship Specialty Start Date End Date Name, MD Cedric [address] [place] [id number] PCP - General Family Medicine 04/06/16 documented as of this encounter
--- OUTSIDE RECORDS SUMMARY | 2025-03-26 09:52 | XMS_ITS | Encounter Summary ---
Author Organization [facility] Address [address] [facility] [address] [place] [address] Phone Care Team Providers Care Data Center Solutions Architect Name Role Phone Name, Cedric NICK Primary Care Provider [phone] Encounter Details Date Type Department Care Team (Late Contact Info) Description 02/02/2022 Telephone [facility] [address] [facility] [address] [place] [address] Jasiel Oliver, [address] [address] Social History Tobacco Use Types Packs/Day Years [...] send to Dr Liao. Thank you FAX# [phone] documented in this encounter Plan of Treatment Upcoming Encounters Date Type Department Care Team (Late Contact Info) Description 09/23/2025 10:00 AM EST Office Visit [facility] [address] [id number] Buddy Ortiz MD [address] [phone] documented as of this encounter Visit Diagnoses Not on filedocumented in this encounter Care Teams Data Center Solutions Architect Relationship Specialty Start Date End Date Name, MD Cedric [address] [place] [phone] PCP - General Internal Medicine 02/02/22 documented as of this encounter
== END 2025-03-21 09:22 | disposition home or self-care (01) ==
LOC: HO.HOSX 09:21
PROVIDERS: Visit Provider Physician Assistant
DX: Z13.89 Encounter for screening for other disorder (principal)

== ENCOUNTER 2025-03-24 09:57 | Outpatient (REF) | payer OTHER, SELFPAY ==
--- NOTE | ~2025-03-24 | MR_ITS ---
EXAMINATION: MRI RIGHT KNEE WITHOUT CONTRAST HISTORY: S83.241A - Other tear of medial meniscus, current injury, right knee COMPARISON: Correlation is made to plain films of the right knee dated 02/05/2025. TECHNIQUE: Coronal T1 and fat-suppressed proton density, sagittal proton density and fat-suppressed proton density, and axial fat suppressed T2 weighted MR images of the right knee were obtained. FINDINGS: Bone marrow: Bone marrow signal intensity is normal. Joint effusion: There is no joint effusion. Rubi's cyst: There is no Rubi's cyst. Articular cartilage: There is moderate osteoarthritis of the patellofemoral compartment with cartilage loss and subchondral marrow changes. Small osteophytes are also noted. The articular cartilage of the medial and lateral compartments is intact. Muscles/soft tissues: There is diffuse synovial hypertrophy in the suprapatellar recess and at the posterior aspect of the knee. Multiple hypointense synovial masses are seen in these regions, compatible with pigmented villonodular synovitis (PVNS). Anterior cruciate ligament: Intact Posterior cruciate ligament: Intact Medial collateral ligament: Intact Lateral collateral ligament: Intact Medial meniscus: Intact Lateral meniscus: Intact Flexor mechanism: The popliteus, gastrocnemius, and hamstring tendons are intact. Quadriceps tendon: Intact Patellar tendon: Intact Patellar retinacula: Intact MR/MR knee RT wo con IMPRESSION: 1. 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 2. Moderate osteoarthritis of the patellofemoral compartment. Electronically signed by: Sarmad Alan MD 03/25/2025 09:07 AM EDT
== END 2025-03-24 09:58 | disposition home or self-care (01) ==
LOC: HO.MRI 09:57
PROVIDERS: PCP Internal Medicine Geriatric Medicine; Visit Provider Orthopaedic Surgery
DX: S83.241A Other tear of medial meniscus, current injury, right knee, initial encounter (principal)
CPT/HCPCS: 73721

== ENCOUNTER → 2025-03-24 10:06 | Outpatient (BNV) | payer OTHER, SELFPAY | PROVIDERS: PCP Internal Medicine Geriatric Medicine; Visit Provider Radiology Diagnostic Radiology | DX: M17.11 Unilateral primary osteoarthritis, right knee (principal); S83.241A Other tear of medial meniscus, current injury, right knee, initial encounter | CPT/HCPCS: 73721 ==

== ENCOUNTER 2025-04-11 11:14 | Outpatient (AMB) | payer OTHER, SELFPAY ==
--- NOTE | 2025-04-11 11:15 | A.OFFVIS_ITS ---
Vital Signs 04/11/25 11:16 Height 5 ft 6 in Weight 134 lb BMI 21.6 Intake Visit Reasons: Right knee pain Intake Note: Maryann is a 54 year old female who presents with complaints of progressively worsening right knee pain and intermittent swelling. The patient states that she 1st noticed swelling in her right knee approximately 12 years ago while in [place]. The patient states that she had ?fluid drained out of my knee? at that time. The patient denies any locking or giving way. Most of the pain is along the medial and posterior aspects of her knee. She has tried Tylenol and anti- inflammatory medicines which gave her minimal relief. Director Facilities Maintenance Required: Yes Director Facilities Maintenance Language: Salon Supervisor Services: Director Facilities Maintenance Present Director Facilities Maintenance Name: JUAN JOSE Payan/AURELIA Allergies ceftriaxone Allergy (Severe, Verified 04/11/25 11:18) Anaphylaxis Iodinated Contrast Media [IV Contrast Dye] Allergy (Severe, Verified 04/11/25 11:18) Anaphylaxis magnesium hydroxide [From Milk of Magnesia] Allergy (Intermediate, Verified 04/11/25 11:18) Rash Medication List - Last Reconciled 04/11/25 by Jase Manning MD acetaminophen 500 mg PO Q6H PRN bisacodyl 10 mg (2 x 5 mg) PO DAILY docusate sodium 200 mg (2 x 100 mg) PO BEDTIME empagliflozin (Jardiance) 10 mg PO DAILY hydrocortisone 2.5% (Proctosol HC) 1 appl [place] BID-QID PRN hydrocortisone acetate (Anucort-HC) 25 mg AZ BID levothyroxine 1 tab PO DAILY lisinopril 10 mg PO DAILY polyethylene glycol 3350 (Miralax) 17 grams PO DAILY terconazole 0.8% 1 appful vaginal BEDTIME 3 days PFS Medical History Hemorrhoids with complication Endometrial hyperplasia Heartburn GERD (gastroesophageal reflux disease) Skin lesion of back Kidney stone Vitamin D deficiency Hypothyroidism Surgical History Hx of ventral hernia repair (05/31/24) Hx of unilateral oophorectomy History of surgery Tubal ligation status Hx of colonoscopy Hx of esophagogastroduodenoscopy Family History Father Hypertension Respiratory failure Mother Pancreatic cancer Social History Household Members: Spouse Housing: Apartment Are you a primary customer care consultant to a significant other at home: No Do you presently have visiting nurse or other home services: No Alcohol intake: never Patient Tobacco Use Status: Never used Tobacco Second Hand Smoke Exposure: No service: No Current occupational status: employed Current occupation: [employer] Sexual orientation: Straight/Heterosexual Gender identity: Female Female Reproductive History Menstrual Age of Menarche: 16 Physical Exam Vital Signs: BMI result Body Mass Index 21.6 Const Other: Well-nourished well-developed very friendly female awake alert and oriented x3 in no acute distress Extrem Other: Right knee examination shows a minimal effusion, no erythema, mild crepitus with range of motion, tenderness along the posterior aspect of her knee, no palpable masses, no instability Results Reviewed Results Reviewed: MRI of the patient's right knee shows diffuse synovial hypertrophy in the suprapatellar recess and at the posterior aspect of the knee.... Multiple hypointense synovial masses are seen, compatible with pigmented villonodular synovitis Assessment & Plan Assessment & Plan (1) Right knee pain: Code(s): M25.561 - Pain in right knee Plan Ms. 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 The patient may be a candidate for arthroscopic versus open synovectomy and possible adjuvant radiation therapy. Because no one here at [facility] specializes in this type of disease process I will try to arrange for the patient to have follow up with an orthopedic integrated marketing specialist. The patient will follow-up as instructed. Feel free to call me at any time should questions regarding her orthopedic man agement arise. I spent 20 minutes in reviewing the patient's records and imaging studies, seeing the patient and documenting in the medical record. Coding Level of Care Code Est Pt Level 3 (59612) Complex EM visit Add On G2211 Diagnoses Right knee pain M25.561
[2025-04-11 11:16] VITALS: BMI 21.6
--- OUTSIDE RECORDS SUMMARY | 2025-04-11 11:40 | XMS_ITS | Clinical Summary ---
Author Organization [employer] Address [address] [place] [address] [address] [place] [address] Care Team Providers Care Tumbling Machine Operator Name Role Phone Name, Cedric NICK Primary Care Provider [phone] Allergies Active Allergy Reactions Criticality Noted Date [...] IN WATER AND TAKE ONCE DIRECTED BY [facility] GI DEPT 05/31/20 23 Active Acetaminophen [...] 30 tablet 11 02/06/20 25 026 Active levothyroxine (Synthroid, Levoxyl) 75 MCG [...] Once per day. 30 tablet 2 03/12/20 25 025 Active empagliflozin (Jardiance) 10 MG Take 1 tablet (10 mg) by mouth Once per day. 03/12/20 25 026 Active Active Problems Problem Noted Date Diagnosed Date Acute pain of right knee 02/05/2025 Assessment & Plan (02/05/2025 1:05 PM EDT): Patient of Name here with c/o new onet of right knee pain. Seen at [facility] 02/02/2025. Work up included a RLE [...] Encounters Date Type Department Care Team Description 03/27/2025 Results Follow-Up [facility] [address] [place] [phone] Cedric Liao MD MR Knee w/o Contrast Right 03/24/2025 Orders Only [facility] External Provider, [facility] 03/20/[address] [address] Alanis Pinto [place] regina recall 03/19/[address] [address] Radha Sharp, MINE 03/12/2025 10:45 AM EDT Office Visit [address] [address] Cedric Liao MD Osteoarthritis of right knee, unspecified osteoarthritis type (Primary Dx); Seasonal allergic rhinitis, unspecified trigger; Acquired hypothyroidism; High cholesterol; Proteinuria, unspecified type 03/12/2025 Travel 03/11/[address] [address] Cedric Liao MD Chart Prep 02/18/2025 Refill [facility] [address] [address] Cedric Liao MD Acquired hypothyroidism 02/06/[address] [address] Amber David, RN Results 02/05/2025 1:00 PM EDT [facility] [address] [address] Sebas Rajan MD Acute pain of right knee (Primary Dx) 02/05/2025 Orders Only [facility] [address] [place] [phone] Sebas Rajan MD 01/29/2025 Telephone [facility] DENTAL [address] [place] [address] Iza Dial from Last 3 Months Immunizations Immunization Administration Dates Next Due HepB-CpG 03/29/2023,01/24/2023 Influenza [...] Description 06/27/2025 10:30 AM EDT Office Visit [facility] [address] [place] [address] Name, MD Cedric [address] [place] [address] 09/18/2025 3:00 PM EST Office Visit [facility] [address] [place] [address] Iza Dial [address] [place] [address] Health Maintenance Due Date Last Done Comments CT Colonography 1968 FIT DNA/Cologuard 1968 FIT 1968 FOBT 1968 Sigmoidoscopy 1968 Disability Screening 1968 Alcohol/Substance Use Screening 1980 Pneumococcal Vaccine: [...] 04/01/2022, 11/0 11/2015 Dental X-Ray: [facility] 08/03/2025 08/02/20 24, [...] patient's age to complete this topic Meningococcal B Vaccine Aged Out No l onger eligible based on patient's age to complete [...] LE RT Routine 02/02/2025 5:28 PM EDT HEPATITIS C AB W/REFL TO HCV RNA, [...] EDT Narrative 03/25/2025 9:11 AM EDT ? [facility] ?[address] ?[place] [address] ? Magnetic Resonance Report ? Signed ? Patient: Suraj RuelasMaryann A ?MR ?? #: [id number] ? : 1970 ?Acct:[id number] ? Age/Sex: 54 / F ?ADM Date: 03/24/25 ? Loc: HO.MRI ? Attending Dr: Jase Manning MD ? Ordering Physician: Jase Manning MD ?? Date of Service: 03/24/25 ?? Procedure(s): MR knee RT wo con ?? Accession Number(s): [id number] ? cc: Cedric Liao MD; Jase Manning MD ? EXAMINATION: MRI RIGHT KNEE WITHOUT CONTRAST ? HISTORY: S83.463A - Other tear of medial meniscus, current [...] DD/ 1011 ? TD/TT: 03/24/25 1021 ? Market Investigator: ? Procedure Note Molly Barry - 03/25/[address] [address] Magnetic Resonance Report Signed Patient: Maryann Tan AMR #: [id number] : 1970Acct:[id number] Age/Sex: 54 / FADM Date: 03/24/25 Loc: HO.MRI Attending Dr: Jase Manning MD Ordering Physician: Jase Manning MD Date of Service: 03/24/25 Procedure(s): MR knee RT wo con Accession Number(s): [id number] cc: Name,Cedric NIKC; Jase Manning MD EXAMINATION: MRI RIGHT KNEE [...] 03/25/25 0907 DD/ 1011 TD/TT: 03/24/25 1021 Market Investigator: [facility] External Provider IMG MRI PROCEDURES Final Result * TSH W/Reflex to FT4 (03/12/2025 11:17 AM EDT) TSH reflex Free T4 1.70 0.32 - 4.0 uIU/mL [facility] Blood Venous blood specimen / Unknown 03/12/2025 11:17 AM EDT 03/12/2025 1:10 PM EDT Cedric Liao MD LAB BLOOD ORDERABLES Final Resul t Performing Organization Address [facility] Co de Phone Number [facility] [address] [place] [phone] * (ABNORMAL) Lipid Panel, Standard (03/12/2025 11:17 AM EDT) Triglycerides 313(H) <150 mg/dL [facility] Comment:Desirable Triglyceri de: less than 150 mg/dLBorderline High Triglyceride 150-199 mg/dLHigh Triglyceride: 200-499 mg/dLVery High Triglyceride: greater than or equal to 5OO mg/dL Cholesterol 205(H) <200 mg/dL [facility] Comment:Desirable Cholestero l: less than 200 mg/dLBorderline High Cholesterol: 200-239 mg/dLHigh Cholesterol: greater than 239 mg/dL LDL Cholesterol Calculated 102(H) <100 mg/dL [facility] Comment:Desirable LDL: less than 100 mg/dLNear Optimal/Above Optimal LDL: 110- 129 mg/dLBorderline High LDL: 130-159 mg/dLHigh LDL: 160-189 mg/dLVery High LDL: greater than or equal to 190 mg/dL HDL Cholesterol 41 >40 mg/dL [facility] Comment:Desirable HDL: great er than 40 mg/dL Note: This HDL assay may give artificially low results in patients with liver disease. Blood Venous blood specimen / Unknown 03/12/2025 11:17 AM EDT 03/12/2025 1:10 PM EDT us Cedric Liao MD LAB BLOOD ORDERABLES Final Resul t Performing Organization Address [facility] Co de Phone Number [facility] [address] [place] [phone] * Slide Review (02/05/2025 1:37 PM EDT) Slide Review VERIFIED [facility] 02/05/2025 1:37 PM EDT 02/05/2025 4:24 PM EDT Sebas Henry MD LAB BLOOD ORDERABLES Final Result [facility] [address] [place] [phone] [phone] * Vitamin D, 25-Hydroxy, Total, Immunoassay (02/05/2025 1:37 PM EDT) Vitamin D 25-OH Total 54.6 >30 ng/mL [facility] Comment: Health Based Reference Values*< 20 ??ng/mL ??[id number] ng/mL ??Insufficient> 30 ??ng/mL ??Sufficient*Deneen JUAREZ. N [...] ORDERABLES Final Resul t Performing Organization Address City/[facility] Co de Phone Number [facility] [address] [place] [address] [phone] * Creatinine, Serum (02/05/2025 1:37 PM EDT) Creatinine, Serum 0.74 0.5 - 1.4 mg/dL [facility] Estimated Glomerular Filt Rate >60 [facility] Comment:Chronic Kidney Disea se: Estimated GFR < 60 mL/min/[id number] Kidney Disease: Estimated GFR < 15 mL/min/1.73m2 02/05/2025 1:37 PM EDT 02/05/2025 4:24 PM EDT us Generic External Data Provider LAB BLOOD ORDERAB LES Final Result Performing Organization Address [facility] de Phone Number [facility] [address] [place] [phone] * (ABNORMAL) CBC auto differential (02/05/2025 1:37 PM EDT) White Blood Count 6.4 4.8 - 10.8 X10*3/uL [facility] Red Blood Count 4.12(L) 4.20 - 5.50 X10*6/uL [facility] Hemoglobin 11.8(L) 12.0 - 16.0 g/dl [facility] Hematocrit 35.6(L) 37.0 - 47.0 % [facility] Mean Corpuscular Volume 86.4 80.0 - 98.0 fL [facility] Mean Corpuscular Hemoglobin 28.6 27.0 - 33.0 pg [facility] Mean Corpuscular HGB Conc 33.1 31.0 - 35.0 g/dl [facility] Red Cell Distribution Width 13.1 11.0 - 16.0 % [facility] Platelet Count 172 160 - 400 X10*3/uL [facility] Mean Platelet Volume 13.0(H) 9.4 - 12.3 fL [facility] Neutrophils Percent Auto 50.0 45 - 73 % [facility] Imm Gran Pct Auto 0.5(H) 0.0 - 0.4 % [facility] Lymphocytes Percent Auto 38.5 20 - 40 % [facility] Monocytes Percent Auto 7.8 2 - 11 % [facility] Eosinophils Percent Auto 1.6 0 - 4 % [facility] Basophils Percent Auto 1.6 0 - 2 % [facility] NRBC Pct Auto 0.0 0.0 - 0.2 /100WBC [facility] Neutrophils Absolute Auto 3.2 2.0 - 8.3 x10*3/uL [facility] Imm Gran Abs Auto 0.03 0.00 - 0.03 X10*3/uL [facility] Lymphocytes Absolute Auto 2.5 1.2 - 4.9 X10*3/uL [facility] Monocytes Absolute Auto 0.5 0.1 - 1.2 X10*3/uL [facility] Eosinophils Absolute Auto 0.1 0.0 - 0.4 X10*3/uL [facility] Basophils Absolute Auto 0.1 0.0 - 0.2 X10*3/uL [facility] NRBC Abs Auto 0.000 0.0 - 0.012 X10*3/uL [facility] Blood Venous blood specimen / Unknown 02/05/2025 1:37 PM EDT 02/05/2025 4:24 PM EDT us Sebas Henry MD LAB BLOOD ORDERABLES Edited Result - Final [facility] [address] [place], [place] [phone] * (ABNORMAL) Uric acid (02/05/2025 1:37 PM EDT) Uric Acid 6.8(H) 2.4 - 5.7 mg/dL [facility] Blood Venous blood specimen / Unknown 02/05/2025 1:37 PM EDT 02/05/2025 4:24 PM EDT us Sebas Henry MD LAB BLOOD ORDERABLES Final Result Performing Organization Address [facility] de Phone Number [facility] [address] [place] [phone] * BUN (Blood Urea Nitrogen) (02/05/2025 1:37 PM EDT) Urea Nitrogen (BUN) 14 9 - 16 mg/dL [facility] 02/05/2025 1:37 PM EDT 02/05/2025 4:24 PM EDT us Generic External Data Provider LAB BLOOD ORDERAB LES Final Result Performing Organization Address [facility] de Phone Number [facility] [address] [place] [phone] * XR Knee 4+ Views Right (02/05/2025 1:11 PM EDT) Anatomical Region Laterality Modality Lower Extremities, Knee Right Radiogra phic Imaging 02/05/2025 1:11 PM EDT Narrative 02/05/2025 1:40 PM EDT ?[facility] ?[address] ?[place] [address] ?XRay Report ? Signed ? Patient: Ruelas Ruelas,Creheidyia A ?MR ?? #: [id number] ? : 1970 ?Acct:[id number] ? Age/Sex: 54 / F ?ADM Date: 03/25/25 ? Loc: HO.HHCX ? Attending Dr: Sebas Felix MD ? Ordering Physician: Sebas Felix MD ?? Date of Service: 02/05/25 ?? Procedure(s): XR knee RT 4V ?? Accession Number(s): [id number] ? cc: Sebas Felix MD ? EXAMINATION: [...] DD/ 1311 ? TD/TT: 02/05/25 1320 ? Market Investigator: ? Procedure Note Asha, Image - 02/05/[address] [address] XRay Report Signed Patient: Maryann Tan AMR #: [id number] : 1970Acct:[id number] Age/Sex: 54 / FADM Date: 02/05/25 Loc: HO.HHCX Attending Dr: Sebas Felix MD Ordering Physician: Sebas Felix MD Date of Service: 02/05/25 Procedure(s): XR knee RT 4V Accession Number(s): [id number] cc: Sebas Felix MD EXAMINATION: XR KNEE [...] 02/05/25 1335 DD/ 1311 TD/TT: 02/05/25 1320 Market Investigator: us Sebas Henry MD IMG XR PROCEDURES Robi tawnya Result - Final * US VENOUS DUPLEX LE RT (02/02/2025 5:28 PM EDT) Anatomical Region Laterality Modality Abdomen Ultrasound 02/02/2025 5:28 PM EDT Narrative 02/02/2025 5:30 PM EDT ? [facility] ?[address] ?[place] [address] ? Ultrasound Report ? Signed ? Patient: Ruelas Ruelas,Beatrizia A ?MR ?? #: [id number] ? : 1970 ?Acct:[id number] ? Age/Sex: 54 / F ?ADM Date: 02/02/25 ? Loc: HO.ED ? Attending Dr: ? Ordering Physician: Keysha Courtney CNP ?? Date of Service: 02/02/25 ?? Procedure(s): US venous duplex LE RT ?? Accession Number(s): [id number] ? cc: Keysha Courtney CNP; Name,Cedric NICK [...] DD/ 1728 ? TD/TT: 02/02/25 1728 ? Market Investigator: ? Procedure Note Asha, Image - 03/22/[address] [address] Ultrasound Report Signed Patient: Maryann Tan AMR #: [id number] : 1970Acct:[id number] Age/Sex: 54 / FADM Date: 02/02/25 Loc: HO.ED Attending Dr: Ordering Physician: Keysha Courtney CNP Date of Service: 02/02/25 Procedure(s): US venous duplex LE RT Accession Number(s): [id number] cc: Keysha Courtney HYDROGRAPHY TEACHER; Name,Cedric NICK CLINICAL HISTORY: R knee swelling, [...] in OV> 02/02/25 1729 DD/ 1728 TD/TT: 02/02/251727 Market Investigator: [facility] External Provider IMG US PROCEDURES Edited Result - Final * Hepatitis C Antibody with Reflex to HCV, RNA, Quantitative, Real-Time PCR (10/03/2024 11:20 AM EST) Hepatitis C Antibody Nonreactive Nonreactive [facility] Comment:Antibodies to HCV no t detected; does not exclude early acuteHCV infection. Blood Venous blood specimen / Unknown 10/03/2024 11:20 AM EST 10/03/2024 1:16 PM EST Cedric Liao MD LAB BLOOD ORDERABLES Final Resul t [facility] [address] [place] [phone] * HIV-1/2 Antigen and Antibodies, Fourth Generation, with Reflexes (10/03/2024 11:20 AM EST) HIV AB/AG Nonreactive Nonreactive [facility] Comment:HIV-1 p24 Ag and/or HIV-1/HIV-2 Ab not detected.A test result that is nonreactive does not exclude thepossibility of exposure to or infection with HIV-1 and/orHIV-2. Nonreactive results in this assay for individualswith prior exposure to HIV-1 and/or HIV-2 may be due toantigen and antibody levels that are below the limit ofdetection of this assay.[employer] HIV Ag/Ab Combo assay result andsupplemental assay results should be interpreted inconjunction with the patient's clinical presentation,history and other laboratory results. If the results areinconsistent with clinical evidence, additional testing issuggested to confirm the result. Blood Venous blood specimen / Unknown 10/03/2024 11:20 AM EST 10/03/2024 1:16 PM EST us Cedric Liao MD LAB BLOOD ORDERABLES Final Resul t [facility] [address] [place] [phone] * BI Mammogram Screening Tomosynthesis Bilateral (05/25/2024 12:45 PM EDT) Anatomical Region Laterality Modality Breast Bilateral Mammography 05/25/2024 12:4 5 PM EDT Narrative 06/19/2024 9:18 PM EDT ? [facility] ? [address] ?[place] [address] ? Mammography Report ? Signed ? Patient: Ruelasedgardo Ruelas,Creheidyia A ?MR ?? #: [id number] ? : 1970 ?Acct:[id number] ? Age/Sex: 54 / F ?ADM Date: /12/24 ? Loc: HO.MAMMO ? Attending Dr: Cedric Liao MD ? Ordering Physician: Cedric Liao MD ?Results: 0Incomplet ?? e: Needs Additional Imaging Evaluation ? Date of Service: 05/25/24 ?Follow Up: Additional Imagi ?? ng ? Procedure(s): MM tomosynthesis screening BI ?? Accession Number(s): [id number] ? cc: Yanni,Cedric NICK ? EXAMINATION: ?? [...] by Melissa Welch MD in OV> ? 06/19/242 ? DD/ 1245 ? TD/TT: ? Market Investigator: ? Procedure Note Asha, Image - 06/19/2024 [facility] [address] [place] [address] Mammography Report Signed Patient: Maryann Tan AMR #: [id number] : 1970Acct:[id number] Age/Sex: 54 / FADM Date: 05/25/24 Loc: EMILO Attending Dr: Cedric Liao MD Ordering Physician: Cedric Liaoults: 0Incomplet e: Needs Additional Imaging Evaluation Date of Service: 05/25/24Follow Up: Additional Imagi ng Procedure(s): MM tomosynthesis screening BI Accession Number(s): [id number] cc: Cedric Liao MD EXAMINATION: MM SCREENING [...] in OV> 06/19/24 2102 DD/ 1245 TD/TT: Market Investigator: Cedric Liao MD IMG BI PROCEDURES Edited Result - Final * (ABNORMAL) Colonoscopy (07/21/2023) Colonoscopy Abnormal(A ) Normal us Cedric Liao MD HEALTH MAINTENANCE Final Result * Pap Smear (12/24/2019) Pap Negative for intraephithelial lesion or malignancy Negative for intraephithelial lesion or malignancy, Other HPV Undetected 12/24/2019 [facility] Provider HEALTH MAINTENANCE Final Result from Last 3 Months or Most Recently Relevant to Health Maintenance Insurance * Guarantor: Ruelas Ruelas, Crecencia A Account Type Relation to Patient Date of Phone Billing Address Personal/Family Self [address] [place] [address] [facility] [address] DENTAL - HSN PARTIAL (MEDICAID) * Guarantor: Maryann Tan A Account Type Relation to Patient Date of Phone Billing Address Personal/Family Self [address] [place] [address] * Guarantor: Maryann Tan A Account Type Relation to Patient Date of Phone Billing Address Personal/Family Self [address] [place] [address] Care Teams Tumbling Machine Operator Relationship Specialty Start Date End Date Name, MD Cedric [address] [place] [address] PCP - General Family Medicine 04/06/16
== END 2025-04-11 11:37 | disposition home or self-care (01) ==
LOC: HO.HOS 11:14
PROVIDERS: PCP Internal Medicine Geriatric Medicine; Visit Provider Orthopaedic Surgery
DX: M25.561 Pain in right knee (principal)
CPT/HCPCS: 99213; G2211

== ENCOUNTER → 2025-04-11 11:14 | Outpatient (BNVA) | payer OTHER, SELFPAY | PROVIDERS: PCP Internal Medicine Geriatric Medicine; Visit Provider Orthopaedic Surgery | DX: M25.561 Pain in right knee (principal) | CPT/HCPCS: 99212 ==

== ENCOUNTER 2025-04-15 13:21 | Outpatient (REF) | payer OTHER, SELFPAY ==
--- NOTE | ~2025-04-15 | US_ITS ---
CLINICAL HISTORY: N20.0 - Calculus of kidney US RENAL Comparison: US/SR - US RENAL BI - 03/14/24 10:33 EDT Findings: Right kidney measures 12.2 cm in length. Normal cortical thickness and echotexture. Moderate hydronephrosis. No large shadowing calculus or cortical mass lesion. Left kidney measures 9.2 cm in length. Normal cortical thickness and echotexture. Mild hydronephrosis. No large shadowing stone or cortical mass lesion. Bilateral ureteral jets were observed. The urinary bladder was mildly distended. IMPRESSION: 1. Moderate right hydronephrosis. 2. Mild left hydronephrosis. 3. No sonographic evidence for nephrolithiasis. This document has been electronically signed by: Gina Roth DO on 04/16/2025 16:20:29
--- OUTSIDE RECORDS SUMMARY | 2025-04-15 14:26 | XMS_ITS | Clinical Summary ---
Author Organization [facility] Building Address [address] [place] [address] Phone Care Team Providers Care Career Guidance Technician Name Role Phone Unavailable Primary Care Provider Unavailabl e Social History Tobacco Use Types Packs/Day Years Used Date Smoking Tobacco: Never Assessed Comments Unknown Sex and Gender Information Value Date Recorded Sex Assigned at Not on file Legal Sex Female 2:21 PM EDT Gender Identity Not on file Sexual Orientation Not on file Plan of Treatment Upcoming Encounters Date Type Department Care Team (Late st Contact Info) Description 06/18/2025 10:45 AM EDT Consult Orthopedic Oncology - [facility] [address] [place] [address] Jarad Quevedo MD [address] [place] [address] Health Maintenance Due Date Last Done Comments Breast Cancer Screening 1970 DTaP,Tdap,and Td Vaccines (1 - Tdap) 1987 Hepatitis B Vaccines (1 of 3 - 19+ 3-dose series) 1987 Cervical Cancer Screening: P ap Smear 1989 Pneumococcal Vaccine: 50+ Ye ars (1 of 1 - PCV) 2018 Zoster Vaccines (1 of 2) 2018 COVID-19 Vaccine ( - 2023-2 5 season) 2024 Colorectal Cancer Screening: Colonoscopy 04/12/2025 Depression Screening 04/12/2025 HIV Screening 04/12/2025 Hepatitis C Screening 04/12/2025 Social Influencers of Health Screening 04/12/2025 Influenza Vaccine (Season Ended) 2025 HIB Vaccines Aged Out No longer eligi [...] on patient's age to complete this topic MMR Vaccines Aged Out No longer eligi ble based on patient's age to complete this topic Meningococcal ACWY Vaccine Aged Out N o longer eligible based on patient's age to complete this topic Meningococcal B Vaccine Aged Out No l onger eligible based on patient's age to complete this topic Pneumococcal Vaccine: Pediat rics (0 to 5 Years) and At-Risk Patients (6 to 64 Years) Aged Out No longer eligible b ased on patient's age to complete this topic RSV Immunization Patients Un haley 20 months Aged Out No longer eligible b ased on patient's age to complete this topic Varicella Vaccines Aged Out No longer eligible based on patient's age to complete this topic Insurance [facility] PUBLIC PLANS
== END 2025-04-15 13:22 | disposition home or self-care (01) ==
LOC: HO.US 13:21
PROVIDERS: PCP Internal Medicine Geriatric Medicine; Visit Provider Nurse Practitioner Family
DX: N20.0 Calculus of kidney (principal)
CPT/HCPCS: 76775

== ENCOUNTER → 2025-04-15 13:24 | Outpatient (BNV) | payer OTHER, SELFPAY | PROVIDERS: PCP Internal Medicine Geriatric Medicine; Visit Provider Radiology Diagnostic Radiology | DX: N13.30 Unspecified hydronephrosis (principal) | CPT/HCPCS: 76775 ==

== ENCOUNTER 2025-05-07 09:19 | Outpatient (AMB) | payer OTHER, SELFPAY ==
--- NOTE | 2025-05-07 09:27 | A.OFFVIS_ITS ---
Intake Visit Reasons: 6m/US(set) Intake Note: Patient presents today for 6m follow up/US * Imaging Completed: 04/15/25 Urology Medications: none Blood Thinner: none PVR:62ml Phonograph Mechanic Required: Yes Phonograph Mechanic Services: Phonograph Mechanic Present Phonograph Mechanic Name: Sawyer Shaffer Accompanied by: Self / Same As Patient Allergies ceftriaxone Allergy (Severe, Verified 05/07/25 09:56) Anaphylaxis Iodinated Contrast Media (IV Contrast Dye) Allergy (Severe, Verified 05/07/25 09:56) Anaphylaxis magnesium hydroxide (From Milk of Magnesia) Allergy (Intermediate, Verified 05/07/25 09:56) Rash Medication List - Last Reconciled 05/07/25 by CHATO Contreras acetaminophen 500 mg PO Q6H PRN bisacodyl 10 mg (2 x 5 mg) PO DAILY docusate sodium 200 mg (2 x 100 mg) PO BEDTIME empagliflozin (Jardiance) 10 mg PO DAILY hydrocortisone 2.5% (Proctosol HC) 1 appl LA BID-QID PRN hydrocortisone acetate (Anucort-HC) 25 mg LA BID levothyroxine 1 tab PO DAILY lisinopril 10 mg PO DAILY polyethylene glycol 3350 (Miralax) 17 grams PO DAILY terconazole 0.8% 1 appful vaginal BEDTIME 3 days HPI Comments Details: Maryann is a pleasant 55-year-old Maltese-speaking female of Dr. Liao who was accompanied by her grandson at today's office visit. She has a past medical history of hemorrhoids with complication, endometrial hyperplasia, GERD, nephrolithiasis, hypothyroidism, and vitamin-D deficiency. She presents to the office today for a follow-up of her longstanding history of nephrolithiasis and hydronephrosis. In discussion with the patient today she reports to be doing and feeling well. She discusses her recent travel to [facility] where she is from in January. She reports having followed up with her PCP from [place] and was put on a medication for her proteinuria however does not recall the name. She also reports having followed up with her PCP here Dr. Liao in recommendations were made to discontinue the medication however does not recall the name of the medication. She does report episodes of urinary frequency however and further discussion as to regular bathroom habits it appears she is typically utilizing the bathroom 6-8 times per day. We did discuss normal/healthy bathroom behaviors. Recent renal imaging results were reviewed with the patient today. Renal ultrasound 05/08 notes moderate right hydronephrosis mild left hydronephrosis otherwise no sonographic evidence of nephrolithiasis. Patient with a longstanding history of hydronephrosis however in comparison to previous CT in ultrasounds in the past it appears patient with mild hydronephrosis. We did discuss levels of hydronephrosis and most recent imaging noting moderate and not mild hydronephrosis. Previous workup has included a nuclear renal scan 10/07 that noted relative function of the 2 kidneys based on a 2-3 minute imaging are left 43% and right 57%. Left kidney with normal perfusion and function. No hydronephrosis or outlet flow obstruction. Right kidney with normal perfusion and function. Mild hydronephrosis is present but there is no significant outflow obstruction. She discusses at length her longstanding history of nephrolithiasis and undergoing multiple interventions in [facility] many years ago. She denies urinary urgency, incontinence, nocturia, hematuria, dysuria, foul smelling urine, changes to urinary stream, flank pain, fever, and or chills. She is happy with her current voiding parameters. BUN: 07/06 10, 07/06 11, 08/06 10, 04/06 12, 07/07 12, 10/07 0.79, 02/05 14 CREATININE: 09/05 0.95, 07/06 0.84, 08/06 0.77, 04/06 0.65, 07/07 0.78, 10/07 0.79, 325 0.74 In office urinalysis results reviewed with the patient today. PVR 62 mL She is due to follow-up with her communications department chair within the next 3 months for her annual appointment for her longstanding history of proteinuria. She otherwise offers no other issues or concerns at this time. 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 No nephrolithiasis appreciated. [facility] Medical History Hemorrhoids with complication Endometrial hyperplasia Heartburn GERD (gastroesophageal reflux disease) Skin lesion of back Kidney stone Vitamin D deficiency Hypothyroidism Surgical History Hx of ventral hernia repair (05/31/24) Hx of unilateral oophorectomy History of surgery Tubal ligation status Hx of colonoscopy Hx of esophagogastroduodenoscopy Family History Father Hypertension Respiratory failure Mother Pancreatic cancer Social History Household Members: Spouse Housing: Apartment Are you a primary intensive care specialist to a significant other at home: No Do you presently have visiting nurse or other home services: No Alcohol intake: never Patient Tobacco Use Status: Never used Tobacco Second Hand Smoke Exposure: No service: No Current occupational status: employed Current occupation: [employer] Sexual orientation: Straight/Heterosexual Gender identity: Female Female Reproductive History Menstrual Age of Menarche: 16 Review of Systems Const Reports no additional complaints Eyes Reports no additional complaints ENT Reports no additional complaints Card Reports no additional complaints Resp Reports no additional complaints GI Reports as per HPI Reports as per HPI Musc Reports no additional complaints Neuro Reports no additional complaints Psych Reports no additional complaints Endo Reports as per HPI Danis/Lymph Reports no additional complaints Aller/Immun Reports no additional complaints Physical Exam Const General: cooperative, healthy appearing, comfortable, no acute distress, well developed, alert and awake Nutritional Appearance: average body habitus Orientation/consciousness: patient oriented x3 Limitations: no limitations HEENT Head: Yes normal to inspection, Yes normocephalic and Yes atraumatic Ears: hearing grossly normal bilaterally Eyes General: appearance normal, both eyes and all related structures Neck Neck: Yes normal visual inspection and Yes trachea midline Chest Chest palpation & inspection: normal inspection of the chest Resp Effort & Inspection: normal respiratory effort and able to speak in complete sentences Cardio Rate: regular rate GI Inspection: Yes normal to inspection General: Yes no CVA tenderness Back/Spine/Pelvis Back: no CVA tenderness Skin General skin exam: no rashes or lesions noted Neuro General: patient oriented x3 Extrem General: Yes normal to inspection Psych Appearance: grossly normal and well kempt Mental Status: mental status grossly normal Speech and movement: Normal speech and movement present and Clear speech present Affect: normal affect Attitude: cooperative Thought process: Normal thought process present Thought content: Normal thought content present Insight: Fair insight present (Psych) Judgement: Fair judgement present (Psych) Results AMB Urinalysis, Automated UA Leukoctes 0 Mercy/uL Last Edit by Tia Marie on 05/07/25 09:39 UA Nitrite Negative Last Edit by Tia Marie on 05/07/25 09:39 UA Urobilinogen 0.2 mg/dL Last Edit by Tia Maire on 05/07/25 09:39 UA Protein 100 mg/dL Last Edit by Tia Marie on 05/07/25 09:39 UA pH 6.0 Last Edit by Tia Rickstiz on 05/07/25 09:39 UA Blood 0 Americo/uL Last Edit by Tia Marie on 05/07/25 09:39 UA Specific [place] 1.020 Last Edit by Tia Marie on 05/07/25 09:39 UA Ketone Negative Last Edit by Tia Rickstiz on 05/07/25 09:39 UA Bilirubin 0 mg/dL Last Edit by Tia Rickstiz on 05/07/25 09:39 UA Glucose 0 mg/dL Last Edit by Tia Rickstiz on 05/07/25 09:39 Results Reviewed Results Reviewed: Laboratory Last Values Urine pH (Auto) 6.0 05/07/25 09:27 Specific [place] (Auto) 1.020 05/07/25 09:27 Urine Protein (Auto) 100 mg/dL 05/07/25 09:27 Glucose (UA)(Auto) 0 mg/dL 05/07/25 09:27 Urine Ketones (Auto) Negative 05/07/25 09:27 Urine Blood (Auto) 0 Americo/uL 05/07/25 09:27 Urine Nitrite (Auto) Negative 05/07/25 09:27 Urine Bilirubin (Auto) 0 mg/dL 05/07/25 09:27 Urine Urobilinogen (Auto) 0.2 mg/dL 05/07/25 09:27 Leukocyte Esterase (Auto) 0 Mercy/uL 05/07/25 09:27 Date of Service: 04/15/25 Procedure(s): US renal BI Findings: Right kidney measures 12.2 cm in length. Normal cortical thickness and echotexture. Moderate hydronephrosis. No large shadowing calculus or cortical mass lesion. Left kidney measures 9.2 cm in length. Normal cortical thickness and echotexture. Mild hydronephrosis. No large shadowing stone or cortical mass lesion. Bilateral ureteral jets were observed. The urinary bladder was mildly distended. IMPRESSION: 1. Moderate right hydronephrosis. 2. Mild left hydronephrosis. 3. No sonographic evidence for nephrolithiasis. Assessment & Plan Assessment & Plan (1) Hydronephrosis: Code(s): N13.30 - Unspecified hydronephrosis Category: Medical Plan In office urinalysis results reviewed with the patient today; as noted above. PVR 62 mL Continue follow-up with Nephrology and PCP as discussed. We discussed importance of taking medications as prescribed. We discussed potential causes of hydronephrosis as well as further workup in risks and benefits of these interventions. Will obtain BUN and creatinine. Will repeat nuclear renal scan. We discussed quality of care and continuity of care and potential challenges seeing 2 different primary care's. We discussed normal/healthy bathroom behaviors. Discussed, educated, and stressed the importance of adequate hydration relation to nephrolithiasis as well as overall health and well-being. Follow-up in 3-4 months with imaging and labs to be completed prior; or sooner with any issues, concerns, and or questions. Orders: Orders NM renal flow w pharm int Today N13.30 - Unspecified hydronephrosis Blood Urea Nitrogen Today N13.30 - Unspecified hydronephrosis AMB Urinalysis Automated Today Z13.9 - Encounter for screening, unspecified AMB Post Void Residual by ultrasound Today N39.0 - Urinary tract infection, site not specified Creatinine Today N13.30 - Unspecified hydronephrosis Patient Instructions: The patient had an opportunity to ask questions regarding the treatment plan. All questions were answered. Physical exam, labs, and imaging were discussed and reviewed in detail. As well as risks, benefits, and discussion of treatment choices. No major barriers to understanding were identified. The patient expressed understanding and agreement with the above treatment plan. The patient was made aware they should contact our office by phone for worsening of their current condition, the appearance of new symptoms, or with any questions or concerns. Compliance is encouraged with any medications and follow up testing that is ordered. It is a privilege to be allowed the opportunity to participate in? your urological care.? Again, if you have any questions or concerns If you have any questions or concerns please do not hesitate to contact me. The office is [phone]. This note is constructed using voice recognition software. While every effort has been made to ensure accuracy maintenance team leader errors may have been included. Yours sincerely, CHATO Contreras Coding Level of Care Code Est Pt Level 3 (16313) Diagnoses Hydronephrosis N13.30
--- OUTSIDE RECORDS SUMMARY | 2025-05-07 09:58 | XMS_ITS | Clinical Summary ---
Author Organization [facility] [address] Building Address [address] [place] [address] Phone Care Team Providers Care Furnace Unloader Name Role Phone Unavailable Primary Care Provider [...] 10:45 AM EDT Consult Orthopedic Oncology - [facility] [address] [place] [address] Jarad Quevedo MD [address] [place] [address] Health Maintenance Due Date Last [...] patient's age to complete this topic Insurance [facility] PUBLIC PLANS
== END 2025-05-07 10:03 | disposition home or self-care (01) ==
LOC: HO.HUSH 09:20
PROVIDERS: PCP Internal Medicine Geriatric Medicine; Visit Provider Nurse Practitioner Family
DX: N13.30 Unspecified hydronephrosis (principal); Z13.9 Encounter for screening, unspecified
CPT/HCPCS: 99213

== ENCOUNTER → 2025-05-07 09:19 | Outpatient (BNVA) | payer OTHER, SELFPAY | PROVIDERS: PCP Internal Medicine Geriatric Medicine; Visit Provider Nurse Practitioner Family | DX: N13.1 Hydronephrosis with ureteral stricture, not elsewhere classified (principal) | CPT/HCPCS: 81003; 99212 ==

== ENCOUNTER 2025-05-16 21:20 | Emergency (ER) | payer OTHER, SELFPAY ==
--- NOTE | ~2025-05-16 | XR_ITS ---
CLINICAL HISTORY: diff swallowing, cough, voice change 2 views soft tissue neck Comparison: None provided Findings No acute fractures or dislocation. Normal epiglottis. Prevertebral soft tissues within normal limits. No radiopaque foreign body. IMPRESSION: No acute findings This document has been electronically signed by: Clyde Cobian MD on 05/17/2025 00:15:38
--- NOTE | ~2025-05-16 | XR_ITS ---
CLINICAL HISTORY: cough x days 1 view chest x-ray Comparison: None provided Findings: No consolidation or effusion. Curvilinear density projecting over the left lung base, likely extrinsic to the patient. Normal size heart. No acute fracture. IMPRESSION: Curvilinear density projecting over the left lung base, likely extrinsic to the patient. A lateral view support this. Otherwise, no acute process. This document has been electronically signed by: Enio Delatorre MD on 05/16/2025 22:01:03
[2025-05-16 21:27] VITALS: BP 147/90; PULSE 79; RESP 16; TEMP 36.6; O2SAT 98; BMI 26.8
--- NOTE | 2025-05-16 21:32 | ECG_ITS ---
Test Reason : cough x weeks Blood Pressure : */* mmHG Vent. Rate : 77 BPM Atrial Rate : 77 BPM P-R Int : 166 ms QRS Dur : 90 ms QT Int : 400 ms P-R-T Axes : 52 -8 -20 degrees QTcB Int : 452 ms Normal sinus rhythm Moderate voltage criteria for LVH, may be normal variant ( R in aVL , Zander product ) Nonspecific ST abnormality Abnormal ECG When compared with ECG of 04-Aug-2023 12:56, T wave inversion no longer evident in Anterior leads Referred By: Generic ED Physician Electronically Signed By: ZANE COURTNEY MD
[2025-05-16 22:08] LABS: IDNOW Serial# 6674DD1D; Strep A Nucleic Acid Negative (Negative)
[2025-05-16 22:38] LABS: Resp Syncy Virus RNA Qual PCR NEGATIVE (Negative); SARS COV2 PCR INHOUSE NEGATIVE (Negative)
--- OUTSIDE RECORDS SUMMARY | 2025-05-16 22:39 | XMS_ITS | Clinical Summary ---
Author Organization [employer] Address [address] [place] [address] 7[address] [place] [address] Care Team Providers Care Facility Maintenance Supervisor Name Role Phone Name, Cedric NICK Primary Care Provider [phone] Allergies Active Allergy Reactions Criticality Noted Date [...] IN WATER AND TAKE ONCE DIRECTED BY [facility] GI DEPT 05/31/20 23 Active [...] onet of right knee pain. Seen at [facility] 02/[place]/[facility]. Work up included a RLE [...] Encounters Date Type Department Care Team Description 04/23/2025 Refill [facility] [address] [place] [address] Cedric Liao MD 04/23/[address] [address] Cedric Liao MD Med Refill (Pt requesting med refill for Lisinopril ) 03/27/2025 Results Follow-Up [address] [address] Cedric Liao MD MR Knee w/o Contrast Right 03/24/2025 Orders Only [facility] External Provider, [facility] 03/20/[address] [address] Alanis Pinto [place] may recall 03/19/[address] [address] Radha Sharp RN 03/12/2025 10:45 AM EDT Office Visit [address] [address] Cedric Liao MD Osteoarthritis of right knee, unspecified osteoarthritis type (Primary Dx); Seasonal allergic rhinitis, unspecified trigger; Acquired hypothyroidism; High cholesterol; Proteinuria, unspecified type 03/12/2025 Travel 03/11/[address] [address] Cedric Liao MD Chart Prep 02/18/2025 Refill [facility] [address] [place] [address] Cedric Liao MD Acquired hypothyroidism from Last 3 Months Immunizations Immunization Administration [...] 91 03/12/2025 10:36 AM EDT Temperature 35.8 C (96.5 F) 03/12/2025 10:36 AM EDT Respiratory Rate 16 03/12/2025 10:36 AM EDT [...] Description 06/27/2025 10:30 AM EDT Office Visit [facility] [address] [place] [address] Name, MD Cedric [address] [place] [address] 09/18/2025 3:00 PM EST Office Visit [facility] [address] [place], [place] [phone] Jayro, Iza [address] [place], [place] [phone] Health Maintenance Due Date Last Done Comments CT Colonography 1968 FIT DNA/Cologuard 1968 FIT 1968 FOBT 1968 Sigmoidoscopy 1968 Disability Screening 1968 Alcohol/Substance Use Screening 1980 Pneumococcal Vaccine: 50+ Years (1 of 1 - PCV) 2018 COVID-19 Vaccine ( season) 2024 04/21/2021, 03/24/2021 Cervical Cancer Screening 12/24/2024 HPV/Cotest 12/24/2024 12/24/2019 Pap Smear 12/24/2024 12/24/2019 Dental Oral Exam 01/31/2025 08/02/2024, , 12/18/2019, Additional history exists Dental Prophylaxis 01/31/2025 08/02/2024, 04/01/2022 Depression Screening 02/19/2025 02/20/2024, 02/20/20 24 SDOH Screening 02/19/2025 02/20/2024 Dental X-Ray: Full Mouth 04/02/2025 04/01/2022, 11/0 11/2015 Influenza Vaccine (Season Ended) 2025 09/11/2021, 09/16/2020, 08/09/2018, Additional history exists Dental X-Ray: Bitewings 08/03/2025 08/02/20 24, 04/01/2022, [...] Name Priority Date/Time Associated Diagnosis Comments US RENAL BI Routine 04/16/2025 4:20 PM EDT MR KNEE WO CONTRAST RIGHT Routine 03/24/2025 10:11 AM EDT LIPID PANEL, STANDARD Routine 03/12/2025 11:17 AM EDT High cholesterol TSH W/REFLEX TO FT4 Routine 03/12/2025 1 1:17 AM EDT Acquired hypothyroidism HEPATITIS C AB W/REFL TO HCV RNA, [...] Recently Relevant to Health Maintenance Results * US RENAL BI (04/16/2025 4:20 PM EDT) Anatomical Region Laterality Modality Abdomen Ultrasound 04/16/2025 4:20 PM EDT Narrative 04/16/2025 4:22 PM EDT [place] [address] Ultrasound Report Signed Patient: Maryann Tan MR #: [id number] : 1970 Acct:[id number] Age/Sex: 54 / F ADM Date: 04/15/25 Loc: HO.US Attending Dr: Fatimah REIS Ordering Physician: Fatimah Claudio Date of Service: 04/15/25 Procedure(s): US renal BI Accession Number(s): [id number] cc: Fatimah Claudio; Name,Cedric NICK CLINICAL HISTORY: N20.0 - Calculus of kidney US RENAL Comparison: US/SR - US RENAL BI - 03/14/24 10:33 EDT Findings: Right kidney measures 12.2 cm in length. Normal cortical thickness and echotexture. Moderate hydronephrosis. No large shadowing calculus or cortical mass lesion. Left kidney measures 9.2 cm in length. Normal cortical thickness and echotexture. Mild hydronephrosis. No large shadowing stone or cortical mass lesion. Bilateral ureteral jets were observed. The urinary bladder was mildly distended. IMPRESSION: 1. Moderate right hydronephrosis. 2. Mild left hydronephrosis. 3. No sonographic evidence for nephrolithiasis. This document has been electronically signed by: Gina Roth DO on 04/16/2025 16:20:29 Dictated By: Gina Roth MD Signed By: <Electronically signed by Gina Roth MD in OV> 04/16/25 1621 DD/ 1620 TD/TT: 04/16/25 1620 Paralegal Specialist: Procedure Note Donotuseinterpreter, Image - 04/16/2025 [place] [address] Ultrasound Report Signed Patient: Maryann Tan BANNER #: [id number] : 1970Acct:[id number] Age/Sex: 54 / FADM Date: 04/15/25 Loc: HO.US Attending Dr: Fatimah REIS Ordering Physician: Fatimah Claudio Date of Service: 04/15/25 Procedure(s): US renal BI Accession Number(s): [id number] cc: Fatimah Claudio; Name,Cedric NICK CLINICAL HISTORY: N20.0 - Calculus of kidney US RENAL Comparison: US/SR - US RENAL BI - 03/14/24 10:33 EDT Findings: Right kidney measures 12.2 cm in length. Normal cortical thickness and echotexture. Moderate hydronephrosis. No large shadowing calculus or cortical mass lesion. Left kidney measures 9.2 cm in length. Normal cortical thickness and echotexture. Mild hydronephrosis. No large shadowing stone or cortical mass lesion. Bilateral ureteral jets were observed. The urinary bladder was mildly distended. IMPRESSION: 1. Moderate right hydronephrosis. 2. Mild left hydronephrosis. 3. No sonographic evidence for nephrolithiasis. This document has been electronically signed by: Gina Roth DO on 04/16/2025 16:20:29 Dictated By: Gina Roth MD Signed By: <Electronically signed by Gina Roth MD in OV> 04/16/25 1621 DD/ 1620 TD/TT: 04/16/25 1620 Paralegal Specialist: us [facility] External Provider IMG US PROCEDURES Final Result * MR Knee w/o Contrast Right (03/24/2025 10:11 AM EDT) Anatomical Region Laterality Modality Magnetic Resonan ce 03/24/2025 10:1 1 AM EDT Narrative 03/25/2025 9:11 AM EDT [place] [address] Magnetic Resonance Report Signed Patient: Maryann Tan MR #: [id number] : 1970 Acct:[id number] Age/Sex: 54 / F ADM Date: 03/24/25 Loc: HO.MRI Attending Dr: Jase Manning MD Ordering Physician: Jase Manning MD Date of Service: 03/24/25 Procedure(s): MR knee RT wo con Accession Number(s): [id number] cc: Cedric Liao MD; Jase Manning MD EXAMINATION: MRI RIGHT KNEE [...] 03/25/25 0907 DD/ 1011 TD/TT: 03/24/25 1021 Paralegal Specialist: Procedure Note Donotuseinterpreter, Image - 03/25/2025 [place] [address] Magnetic Resonance Report Signed Patient: Maryann Tan AMR #: [id number] : 1970Acct:[id number] Age/Sex: 54 / FADM Date: 03/24/25 Loc: HO.MRI Attending Dr: Jase Manning MD Ordering Physician: Jase Manning MD Date of Service: 03/24/25 Procedure(s): MR knee RT wo con Accession Number(s): [id number] cc: Name,Cedric NICK; Jase Manning MD EXAMINATION: [...] 03/25/25 0907 DD/ 1011 TD/TT: 03/24/25 1021 Paralegal Specialist: us [facility] External Provider IMG MRI PROCEDURES Final Result * TSH W/Reflex to FT4 (03/12/2025 11:17 AM EDT) TSH reflex Free T4 1.70 0.32 - 4.0 uIU/mL [facility] Blood Venous blood specimen / Unknown 03/12/2025 11:17 AM EDT 03/12/2025 1:10 PM EDT us Cedric Liao MD LAB BLOOD ORDERABLES Final Resul t Performing Organization Address [facility] Co de Phone Number [facility] [address] [place] [phone] * (ABNORMAL) Lipid Panel, Standard (03/12/2025 11:17 AM EDT) Triglycerides 313(H) <150 mg/dL [facility] Comment:Desirable Triglyceri de: less than 150 mg/dLBorderline High Triglyceride 150-199 mg/dLHigh Triglyceride: 200-499 mg/dLVery High Triglyceride: greater than or equal to 5OO mg/dL Cholesterol 205(H) <200 mg/dL [facility] Comment:Desirable Cholestero l: less than 200 mg/dLBorderline High Cholesterol: 200-239 mg/dLHigh Cholesterol: greater than 239 mg/dL LDL Cholesterol Calculated 102(H) <100 mg/dL [facility] Comment:Desirable LDL: less than [...] ORDERABLES Final Resul t Performing Organization Address [facility] Co de Phone Number [facility] [address] [place] [phone] * Hepatitis C Antibody with Reflex to HCV, RNA, Quantitative, Real-Time PCR (10/03/2024 11:20 AM EST) Hepatitis C Antibody Nonreactive Nonreactive [facility] Comment:Antibodies to HCV no t detected; does not exclude early acuteHCV infection. Blood Venous blood specimen / Unknown 10/03/2024 11:20 AM EST 10/03/2024 1:16 PM EST us Cedric Liao MD LAB BLOOD ORDERABLES Final Resul t Performing Organization Address City/[facility]/ZIP Co de Phone Number [facility] [address] [place] [phone] * HIV-1/2 Antigen and Antibodies, Fourth Generation, with Reflexes (10/03/2024 11:20 AM EST) HIV AB/AG Nonreactive Nonreactive [facility] Comment:HIV-1 p24 Ag and/or HIV-1/HIV-2 Ab not detected.A test result that is nonreactive does not exclude thepossibility of exposure to or infection with HIV-1 and/orHIV-2. Nonreactive results in this assay for individualswith prior exposure to HIV-1 and/or HIV-2 may be due toantigen and antibody levels that are below the limit ofdetection of this assay.The [employer] HIV Ag/Ab Combo assay result andsupplemental assay results should be interpreted inconjunction with the patient's clinical presentation,history and other laboratory results. If the results areinconsistent with clinical evidence, additional testing issuggested to confirm the result. Blood Venous blood specimen / Unknown 10/03/2024 11:20 AM EST 10/03/2024 1:16 PM EST us Cedric Liao MD LAB BLOOD ORDERABLES Final Resul t Performing Organization Address City/[facility] Co de Phone Number [facility] [address] [place] [phone] * BI Mammogram Screening Tomosynthesis Bilateral (05/25/2024 12:45 PM EDT) Anatomical Region Laterality Modality Breast Bilateral Mammography 05/25/2024 12:4 5 PM EDT Narrative 06/19/2024 9:18 PM EDT [facility] [address] [place], [place] [address] Mammography Report Signed Patient: Maryann Tan MR #: [id number] : 1970 Acct:[id number] Age/Sex: 54 / F ADM Date: 05/25/24 Loc: HO.MAMMO Attending Dr: Cedric Liao MD Ordering Physician: Cedric Liao MD Results: 0Incomplet e: Needs Additional Imaging Evaluation Date of Service: 05/25/24 Follow Up: Additional Imagi ng Procedure(s): MM tomosynthesis screening BI Accession Number(s): [id number] cc: Cedric Liao MD EXAMINATION: MM SCREENING [...] in OV> 06/19/24 2102 DD/ 1245 TD/TT: Paralegal Specialist: Procedure Note Donotuseinterpreter, Image - 06/19/2024 [facility] [address] [place] [address] Mammography Report Signed Patient: Maryann Tan AMR #: [id number] : 1970Acct:[id number] Age/Sex: 54 / FADM Date: 05/25/24 Loc: HO.MAMMO Attending Dr: Cedric Liao MD Ordering Physician: Cedric Liaoults: 0Incomplet e: Needs Additional Imaging Evaluation Date of Service: 05/25/24Follow Up: Additional Imagi ng Procedure(s): MM tomosynthesis screening BI Accession Number(s): [id number] cc: Cedric Liao MD EXAMINATION: MM SCREENING [...] in OV> 06/19/24 2102 DD/ 1245 TD/TT: Paralegal Specialist: Cedric Name IMG BI PROCEDURES Edited Result - Final * (ABNORMAL) Colonoscopy (07/21/2023) Colonoscopy Abnormal(A ) Normal us Steele Name HEALTH MAINTENANCE Final Result * Pap Smear (12/24/2019) Pap Negative for intraephithelial lesion or malignancy Negative for intraephithelial lesion or malignancy, Other HPV Undetected 12/24/2019 Historical Provider HEALTH MAINTENANCE Final Result from Last 3 Months or Most Recently Relevant to Health Maintenance Insurance [facility] D[facility] - HSN PARTIAL (MEDICAID) * Guarantor: Maryann Tan Account Type Relation to Patient Date of Phone Billing Address Personal/Family Self [address] [place] [address] * Guarantor: Maryann Tan Account Type Relation to Patient Date of Phone Billing Address Personal/Family Self [address] [place] [address] Care Teams Facility Maintenance Supervisor Relationship Specialty Start Date End Date Name, MD Cedric [address] [place] [phone] PCP - General Family Medicine 04/06/16
--- OUTSIDE RECORDS SUMMARY | 2025-05-16 22:39 | XMS_ITS | Encounter Summary ---
Author Organization [facility] Address [address] [place] [address] Phone Care Team Providers Care Spanish Speaking Nanny Name Role Phone Name, Cedric NCIK Primary Care Provider [phone] Encounter Details Date Type Department Care Team (Late Contact Info) Description 02/02/2022 Telephone [facility] [address] [place] [address] Jasiel Oliver, [address] [address] Social History Tobacco Use Types Packs/Day Years [...] send to Dr Liao. Thank you FAX# [phone] documented in this encounter Plan of Treatment Upcoming Encounters Date Type Department Care Team (Late Contact Info) Description 09/23/2025 10:00 AM EST Office Visit [facility] [address] [phone] Buddy Ortiz MD [address] [phone] documented as of this encounter Visit Diagnoses Not on filedocumented in this encounter Care Teams Spanish Speaking Nanny Relationship Specialty Start Date End Date Name, MD Cedric [address] [place] [phone] PCP - General Internal Medicine 02/02/22 documented as of this encounter
--- OUTSIDE RECORDS SUMMARY | 2025-05-16 22:39 | XMS_ITS | Clinical Summary ---
Author Organization [facility] Building Address [address] [place] [address] Phone Care Team Providers Care Fitness Technician Name Role Phone Unavailable Primary Care [...] 10:45 AM EDT Consult Orthopedic Oncology - [place] [address] [place] [address] Jarad Quevedo MD [address] [place] [address] Health Maintenance Due Date Last [...] patient's age to complete this topic Insurance [facility] PUBLIC PLANS
[2025-05-16 23:24] VITALS: BP 144/87; PULSE 73; RESP 16; TEMP 36.4; O2SAT 97
--- NOTE | 2025-05-16 23:24 | ED_ITS ---
HPI - URI/Sore Throat General Chief Complaint: Upper Respiratory Symptoms Stated Complaint: Throat Pain; Headache, CP Time Seen by Provider: 05/16/25 22:59 History of Present Illness ED Provider: Christiano Patterson MD Related Data Home Medications ?Medication ?Instructions ?Recorded ?Confirmed lisinopril 10 mg tablet 10 mg PO DAILY 09/14/2204/15 levothyroxine 75 mcg tablet 1 tab PO DAILY 12/23/22 empagliflozin 10 mg tablet 10 mg PO DAILY 03/13/25 (Jardiance) Previous Rx's ?Medication ?Instructions ?Recorded terconazole 0.8 % vaginal cream 1 appful vaginal BEDTI ME 3 days 11/21/23 #20 grams hydrocortisone 2.5 % topical cream 1 appl KY BID-QID P RN hemorrhoids 12/06/23 with perineal applicator #30 grams (Proctosol HC) hydrocortisone acetate 25 mg 25 mg KY BID #24 ea 12/06 rectal suppository (Anucort-HC) docusate sodium 100 mg capsule 200 mg (2 x 100 mg) PO BEDTIME 08/10/24 #180 caps polyethylene glycol 3350 17 17 g PO DAILY #510 grams 0 08/10/24 gram/dose oral powder (Miralax) acetaminophen 500 mg tablet 500 mg PO Q6H PRN fever or pain 02/02/25 #30 tabs bisacodyl 5 mg tablet,delayed 10 mg (2 x 5 mg) PO DHIRAJ Y #180 tabs 03/13/25 release benzonatate 100 mg capsule 100 mg PO BID PRN cough #10 caps 05/17/25 Allergies Allergy/AdvReac Type Severity Reaction Status Date / Time ceftriaxone Allergy Severe Anaphylaxis Verified 05/16/25 21:30 Iodinated Contrast Media (IV Allergy Severe Anaphylaxis Verified 05/16/25 21:30 Contrast Dye) magnesium hydroxide (From Allergy Intermediate Rash Verified 05/16/25 21:30 Milk of Magnesia) PMFSH Past Medical History Medical History Hemorrhoids with complication Endometrial hyperplasia Heartburn GERD (gastroesophageal reflux disease) Skin lesion of back Kidney stone Vitamin D deficiency Hypothyroidism Surgical History Hx of ventral hernia repair (05/31/24) Hx of unilateral oophorectomy History of surgery Tubal ligation status Hx of colonoscopy Hx of esophagogastroduodenoscopy Family History Family History Father Hypertension Respiratory failure Mother Pancreatic cancer Social History Social History Household Members: Spouse Housing: Apartment Are you a primary healthcare business analyst to a significant other at home: No Do you presently have visiting nurse or other home services: No Alcohol intake: never Patient Tobacco Use Status: Never used Tobacco Second Hand Smoke Exposure: No Advance Directives: No Advance Directives Information Provided: No service: No Current occupational status: employed Current occupation: [employer] Sexual orientation: Straight/Heterosexual Gender identity: Female Physical Exam Vital Signs: Vital Signs: Last Vital Signs Temp 97.6 F 05/16/25 23:24 Pulse 73 05/16/25 23:24 Resp 16 05/16/25 23:24 BP 144/87 H 05/16/25 23:24 Pulse Ox 97 05/16/25 23:24 O2 Del Method Room Air 05/16/25 23:24 BMI result Body Mass Index 26.8 Medications Administered Discontinued Medications Generic Name Dose Route Start Last Admin Trade Name Freq PRN Reason Stop Dose Admin Benzonatate 200 mg 05/16/25 23:34 05/17/25 00:15 Benzonatate 100 Mg Capsule PO 05/16/25 23:35 200 mg ONCE ONE Administration Ibuprofen 600 mg 05/16/25 23:34 05/17/25 00:15 Ibuprofen 600 Mg Tablet PO 05/16/25 23:35 600 mg ONCE ONE Administration Prednisone 60 mg 05/16/25 23:34 05/17/25 00:15 Prednisone 20 Mg Tablet PO 05/16/25 23:35 60 mg ONCE ONE Administration Medical Decision Making Medical Decision Making MDM Narrative: Medical Decision Makin-year-old female with cough strange sensation in her throat. She has a reassuring ENT exam including normal TMs, clear patent oropharynx. No hoarse voice but she subjectively felt some difficulty swallowing and/or some strange sensation deep in the throat. X-ray of the chest and soft tissue neck are reassuring. Offered Davey Connell. Lungs are clear no underlying lung pathology or medical history relevant. Symptomatic therapy and supportive therapies provided and explained and counseled follow up with PCP Testing Interpreted Independently: Not Applicable Radiology or Lab testing Results Reviewed: Chest and neck x-ray read by Radiology as no acute pathology I agree with Radiology the opacity seen in the left lower thorax is not acute lung pathology it is probably outside of the patient's body. Consults: Not Applicable Independent Historians/External Chart Reviews: Not Applicable Social Determinants of Health Impacting MDM/Planning: Not Applicable Lab Data Labs: Lab Results 05/16/25 Range/Units 21:53 Influenza Type A (PCR) NEGATIVE (Negative) Influenza Type B (PCR) NEGATIVE (Negative) RSV RNA Qual (PCR) NEGATIVE (Negative) SARS-CoV-2 RNA (RT-PCR) NEGATIVE (Negative) S. pyogenes GrpA JOVANY Negative (Negative) Discharge Plan Discharge Clinical Impression: Cough Patient Disposition: Home, Self-Care Instructions: Acute Cough (ED) Additional Instructions: DISCHARGE DIAGNOSES: Cough no signs of pneumonia or abnormalities on your neck x-ray HISTORY OF PRESENTATION: ?Cough EMERGENCY DEPARTMENT COURSE,TESTS, TREATMENTS: While in the ED today you had a reassuring neck and chest x-ray. You were given Tessalon Perle a cough medicine DISCHARGE MEDICATIONS: ?We have prescribed you Tessalon Perle continue with your other prescribed medication FOLLOW-UP: ?Call your primary or general physician soon as possible to discuss your symptoms, your ED visit and to discuss follow up plans Call your PCP for follow up INSTRUCTIONS ?& RETURN PRECAUTIONS: If any symptoms change first call your primary physician, if it is after-hours your primary doctors office should have a provider data processing systems consultant you can speak with. If the symptoms are severe or very concerning to you then call 911 or return to the ED. Christiano Patterson MD Emergency Physician [facility] Prescriptions: New benzonatate 100 mg capsule 100 mg PO BID PRN (Reason: cough) Qty: 10 0RF No Action levothyroxine 75 mcg tablet 1 tab PO DAILY acetaminophen 500 mg tablet 500 mg PO Q6H PRN (Reason: fever or pain) Qty: 30 0RF lisinopril 10 mg tablet 10 mg PO DAILY hydrocortisone [Proctosol HC] 2.5 % cream with perineal applicator 1 appl KY BID-QID PRN (Reason: hemorrhoids) Qty: 30 2RF hydrocortisone acetate [Anucort-HC] 25 mg suppository 25 mg KY BID Qty: 24 2RF terconazole 0.8 % cream 1 appful vaginal BEDTIME 3 Days Qty: 20 0RF docusate sodium 100 mg capsule 200 mg PO BEDTIME Qty: 180 3RF polyethylene glycol 3350 [Miralax] 17 gram/dose powder 17 g PO DAILY Qty: 510 2RF Jardiance 10 mg tablet 10 mg PO DAILY bisacodyl 5 mg tablet,delayed release (DR/EC) 10 mg PO DAILY Qty: 180 3RF Print Language: Other
[2025-05-17 00:50] VITALS: BP 144/87; PULSE 73; RESP 16; TEMP 36.4; O2SAT 97
== END 2025-05-17 00:51 | disposition home or self-care (01) ==
PROVIDERS: Emergency Provider Emergency Medicine
DX: J06.9 Acute upper respiratory infection, unspecified (principal); R51.9 Headache, unspecified; R05.9 Cough, unspecified; R07.89 Other chest pain; Z03.818 Encounter for observation for suspected exposure to other biological agents ruled out; Z79.899 Other long term (current) drug therapy
CPT/HCPCS: 70360; 71045; 87637; 87651; 93005; 99283; 99284

== ENCOUNTER → 2025-05-16 21:32 | Outpatient (BNV) | payer OTHER, SELFPAY | PROVIDERS: Emergency Provider Emergency Medicine; Visit Provider Internal Medicine Cardiovascular Disease | DX: R94.31 Abnormal electrocardiogram [ECG] [EKG] (principal); R05.9 Cough, unspecified | CPT/HCPCS: 93010 ==

== ENCOUNTER → 2025-05-16 21:32 | Outpatient (BNV) | payer OTHER, SELFPAY | PROVIDERS: Emergency Provider Emergency Medicine; Visit Provider Radiology Vascular & Interventional Radiology | DX: R91.8 Other nonspecific abnormal finding of lung field (principal); R13.10 Dysphagia, unspecified; R05.9 Cough, unspecified; R49.9 Unspecified voice and resonance disorder | CPT/HCPCS: 70360; 71045 ==

== ENCOUNTER 2025-05-21 10:23 | Outpatient (AMB) | payer OTHER, SELFPAY ==
--- NOTE | 2025-05-21 10:25 | A.OFFVIS_ITS ---
Vital Signs 05/21/25 10:35 Height 5 ft 1 in Weight 141 lb BMI 26.6 BP 142/74 H Intake Visit Reasons: annual/cotest Reinstatement Clerk Required: Yes Reinstatement Clerk Language: Voip Technician Services: Reinstatement Clerk Present (in person) Reinstatement Clerk Name: JUAN JOSE Coulter Information Interpreted: non-clinical & clinical Program Manufacturing Leader: Program Manufacturing Leader Present (JUAN JOSE Coulter) Accompanied by: Self / Same As Patient Allergies ceftriaxone Allergy (Severe, Verified 05/21/25 10:34) Anaphylaxis Iodinated Contrast Media (IV Contrast Dye) Allergy (Severe, Verified 05/21/25 10:34) Anaphylaxis magnesium hydroxide (From Milk of Magnesia) Allergy (Intermediate, Verified 05/21/25 10:34) Rash Is last menstrual period known: No Post menopausal: Yes Patient : No HPI Comments Details: Presenting for annual exam. No complaints. Last Pap/HPV was negative in 05/07 Last Mammogram was BI-RADS 2 in 08/07 Last Colonoscopy was done in 08/06, the recommendation was to repeat in 5 years [facility] Medical History Hemorrhoids with complication Endometrial hyperplasia Heartburn GERD (gastroesophageal reflux disease) Skin lesion of back Kidney stone Vitamin D deficiency Hypothyroidism Surgical History Hx of ventral hernia repair (05/31/24) Hx of unilateral oophorectomy History of surgery Tubal ligation status Hx of colonoscopy Hx of esophagogastroduodenoscopy Family History Father Hypertension Respiratory failure Mother Pancreatic cancer Social History Household Members: Spouse Housing: Apartment Are you a primary foster care case manager to a significant other at home: No Do you presently have visiting nurse or other home services: No Alcohol intake: never Patient Tobacco Use Status: Never used Tobacco Second Hand Smoke Exposure: No service: No Current occupational status: employed Current occupation: [employer] Sexual orientation: Straight/Heterosexual Gender identity: Female Female Reproductive History Menstrual Age of Menarche: 16 control method: permanent sterilization Total pregnancies: 3 Full term: 3 Date of last pap smear: 12/24/19 (negative pap smear, negative hpv ) Date of Mammogram: 07/23/24 (bi rad 2) Review of Systems Const All systems reviewed & are unremarkable except as noted in HPI and below Card Reports as per HPI Resp Reports as per HPI GI Reports as per HPI and Reports no additional complaints Reports as per HPI Physical Exam Vital Signs: Last Vital Signs BP 142/74 H 05/21/25 10:35 BMI result Body Mass Index 26.6 Const General: cooperative, healthy appearing and comfortable Chest Chest palpation & inspection: normal inspection of the chest and normal palpation of entire chest wall Breast/axilla inspection: normal inspection of the breasts and normal inspection of the axillae Breast/axilla palpation: normal palpation of the breasts, normal palpation of the axillae and no axillary lymphadenopathy Resp Effort & Inspection: normal respiratory effort Auscultation: clear to auscultation bilaterally Percussion: percussion normal Cardio Palpation: normal PMI Rate: regular rate Rhythm: regular rhythm Heart sounds: no murmurs and no rubs Peripheral pulses: Peripheral pulses 2+ throughout GI Inspection: Yes normal to inspection Palpation (GI): Soft to palpation, nontender, no guarding, not rigid and No hepatosplenomegaly present Percussion: Yes normal to percussion Auscultation: normal bowel sounds Rectal Exam - Female: deferred General: Yes bladder normal to palpation External Female Exam: lesion (Bilateral vulvar leukoplakia) Speculum Exam - Vagina: normal appearance of the vagina, normal palpation, normal vaginal discharge and not erythematous Speculum Exam - Cervix: normal appearance of the cervix and normal palpation Bimanual exam- vagina & uterus: normal bimanual exam, normal palpation, uterine size normal, bladder normal to palpation, consistency normal and normal palpation Bimanual Exam- Adnexa, other: normal adnexae, no masses and no tenderness Assessment & Plan Assessment & Plan (1) Well woman exam: Code(s): Z01.419 - Encounter for gynecological examination (general) (routine) without abnormal findings Category: Medical Plan: Co testing not indicated this year. Counseled the patient about the recommended dietary allowance of 1200 mg of Calcium & 600 IU of vitamin D. Instructions given the patient to schedule next screening Mammogram in 08/08. The patient was instructed to perform monthly self-breast exams and schedule annual exam in a year. All questions answered and the patient verbalized understanding. 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 Instructions given to patient to schedule an appointment within 2 weeks. All questions answered, the patient verbalized understanding Coding Level of Care Code Est Pt Prev Care 40-64y(18946) Diagnoses Well woman exam Z01.419 Vulvar leukoplakia N90.4
[2025-05-21 10:35] VITALS: BP 142/74; BMI 26.6
--- OUTSIDE RECORDS SUMMARY | 2025-05-21 11:15 | XMS_ITS | Clinical Summary ---
Author Organization [employer] Address [address] [place] [address] [address] [place] [address] Care Team Providers Care Turkey Cleaner Name Role Phone Name, Cedric NICK Primary Care Provider [phone] Allergies Active Allergy Reactions Criticality Noted Date [...] IN WATER AND TAKE ONCE DIRECTED BY [facility] GI DEPT 05/31/20 23 Active Acetaminophen Extra [...] onet of right knee pain. Seen at [facility] 02/02/2025. Work up included a RLE [...] Type Department Care Team Description 04/23/[address] [address] Cedric Liao MD 04/23/[address] [address] Cedric Liao MD Med Refill (Pt requesting med refill for Lisinopril ) 03/27/2025 Results Follow-Up [address] [address] Cedric Liao MD MR Knee w/o Contrast Right 03/24/2025 Orders Only [facility] External Provider, [facility] 03/20/[address] [address] Alanis Pinto [place] may recall 03/19/[address] [address] Radha Sharp RN 03/12/2025 10:45 AM EDT Office Visit [address] [address] Cedric Liao MD Osteoarthritis of right knee, unspecified osteoarthritis type (Primary Dx); Seasonal allergic rhinitis, unspecified trigger; Acquired hypothyroidism; High cholesterol; Proteinuria, unspecified type 03/12/2025 Travel 03/11/[address] [address] Cedric Liao MD Chart Prep from Last 3 Months Immunizations Immunization Administration [...] Description 06/27/2025 10:30 AM EDT [facility] [address] [place] [address] Name, MD [facility] [address] [facility] [place] [address] 09/18/2025 3:00 PM EST Office Visit [facility] [address] [place], [place] [phone] Iza Dial [address] [place], [place] [phone] Health Maintenance Due Date Last Done Comments [...] Dental X-Ray: Full Mouth 04/02/2025 04/01/2022, 11/2015 Influenza Vaccine (#1) 2025 , 09/16/2020, 08/09/2018, Additional history exists Dental X-Ray: [...] PM EDT Narrative 04/16/2025 4:22 PM EDT [place] [address] Ultrasound Report Signed Patient: Maryann Tan MR #: [id number] : 1970 Acct:[id number] Age/Sex: 54 / F ADM Date: 04/15/25 Loc: HO.US Attending Dr: Fatimah REIS Ordering Physician: Fatimah Claudio Date of Service: 04/15/25 Procedure(s): US renal BI Accession Number(s): [id number] cc: Fatimah Claudio; Name,Cedric NICK CLINICAL HISTORY: [...] Roth MD in OV> 04/16/25 1621 DD/ 162 TD/TT: 04/16/25 162 Compo Caster: Procedure Note Donotuseinterpreter, Image - 04/16/2025 [place] [address] Ultrasound Report Signed Patient: Maryann Tan AMR #: [id number] : 1970Acct:[id number] Age/Sex: 54 / FADM Date: 04/15/25 Loc: HO.US Attending Dr: Fatimah REIS Ordering Physician: Fatimah Claudio Date of Service: 04/15/25 Procedure(s): US renal BI Accession Number(s): [id number] cc: Fatimah Claudio; Name,Cedric NICK CLINICAL HISTORY: [...] 04/16/25 1621 DD/ 1620 TD/TT: 04/16/25 1620 Compo Caster: us [facility] External Provider IMG US PROCEDURES Final Result * MR Knee w/o Contrast Right (03/24/2025 10:11 AM EDT) Anatomical Region Laterality Modality Magnetic Resonan ce 03/24/2025 10:1 1 AM EDT Narrative 03/25/2025 9:11 AM EDT [place] [address] Magnetic Resonance Report Signed Patient: Maryann Tan MR #: [id number] : 1970 Acct:[id number] Age/Sex: 54 / F ADM Date: 03/24/25 Loc: HO.MRI Attending Dr: Jase Manning MD Ordering Physician: Jase Manning MD Date of Service: 03/24/25 Procedure(s): MR knee RT wo con Accession Number(s): [id number] cc: Name,Cedric NICK; Jase Manning MD EXAMINATION: [...] Sarmad Alan MD 03/25/2025 09:07 AM EDT RP Dictated By: Sarmad Alan MD Signed By: <Electronically signed by Sarmad Alan MD in OV> 03/25/25 0907 DD/ 1011 TD/TT: 03/24/25 1021 Compo Caster: Procedure Note Donotuseinterpreter, Image - 03/25/2025 [place] [address] Magnetic Resonance Report Signed Patient: Maryann Tan AMR #: [id number] : 1970Acct:[id number] Age/Sex: 54 / FADM Date: 03/24/25 Loc: HO.MRI Attending Dr: Jase Manning MD Ordering Physician: Jase Manning MD Date of Service: 03/24/25 Procedure(s): MR knee RT wo con Accession Number(s): [id number] cc: Yanni,Cedric NICK; Jase Manning MD EXAMINATION: [...] 03/25/25 0907 DD/ 1011 TD/TT: 03/24/25 1021 Compo Caster: us [facility] External Provider IMG MRI PROCEDURES Final Result * TSH W/Reflex to FT4 (03/12/2025 11:17 AM EDT) TSH reflex Free T4 1.70 0.32 - 4.0 uIU/mL [facility] Blood Venous blood specimen / Unknown 03/12/2025 11:17 AM EDT 03/12/2025 1:10 PM EDT Cedric Liao MD LAB BLOOD ORDERABLES Final Resul t Performing Organization Address City/[facility] Co de Phone Number [facility] [address] [place] [address] [phone] * (ABNORMAL) Lipid Panel, Standard (03/12/2025 11:17 AM EDT) Triglycerides 313(H) <150 mg/dL [facility] Comment:Desirable Triglyceri de: less than 150 mg/dLBorderline High Triglyceride 150-199 mg/dLHigh Triglyceride: 200-499 mg/dLVery High Triglyceride: greater than or equal to 5OO mg/dL Cholesterol 205(H) <200 mg/dL [facility] Comment:Desirable Cholestero l: less than 200 mg/dLBorderline High Cholesterol: 200-239 mg/dLHigh Cholesterol: greater than 239 mg/dL LDL Cholesterol Calculated 102(H) <100 mg/dL [facility] Comment:Desirable LDL: less than 100 mg/dLNear Optimal/Above Optimal LDL: 110- 129 mg/dLBorderline High LDL: 130-159 mg/dLHigh LDL: 160-189 mg/dLVery High LDL: greater than or equal to 190 mg/dL HDL Cholesterol 41 >40 mg/dL [facility] Comment:Desirable HDL: great er than 40 mg/dL Note: This HDL assay may give artificially low results in patients with liver disease. Blood Venous blood specimen / Unknown 03/12/2025 11:17 AM EDT 03/12/2025 1:10 PM EDT Cedric Liao MD LAB BLOOD ORDERABLES Final Resul t Performing Organization Address City/[facility]/ZIP Co de Phone Number [facility] [address] [place] [address] [phone] * Hepatitis C Antibody with Reflex to HCV, RNA, Quantitative, Real-Time PCR (10/03/2024 11:20 AM EST) Hepatitis C Antibody Nonreactive Nonreactive [facility] Comment:Antibodies to HCV no t detected; does not exclude early acuteHCV infection. Blood Venous blood specimen / Unknown 10/03/2024 11:20 AM EST 10/03/2024 1:16 PM EST us Cedric Liao MD LAB BLOOD ORDERABLES Final Resul t Performing Organization Address City/[facility]/ZIP Co de Phone Number [facility] [address] [place] [address] [phone] * HIV-1/2 Antigen and Antibodies, Fourth Generation, with Reflexes (10/03/2024 11:20 AM EST) HIV AB/AG Nonreactive Nonreactive [facility] Comment:HIV-1 p24 Ag and/or HIV-1/HIV-2 Ab not detected.A test result that is nonreactive does not exclude thepossibility of exposure to or infection with HIV-1 and/orHIV-2. Nonreactive results in this assay for individualswith prior exposure to HIV-1 and/or HIV-2 may be due toantigen and antibody levels that are below the limit ofdetection of this assay.The [facility] HIV Ag/Ab Combo assay result andsupplemental assay results should be interpreted inconjunction with the patient's clinical presentation,history and other laboratory results. If the results areinconsistent with clinical evidence, additional testing issuggested to confirm the result. Blood Venous blood specimen / Unknown 10/03/2024 11:20 AM EST 10/03/2024 1:16 PM EST us Cedric Liao MD LAB BLOOD ORDERABLES Final Resul t Performing Organization Address City/[facility]/ZIP Co de Phone Number [facility] [address] [place] [address] [phone] * BI Mammogram Screening Tomosynthesis Bilateral (05/25/2024 12:45 PM EDT) Anatomical Region Laterality Modality Breast Bilateral Mammography 05/25/2024 12:4 5 PM EDT Narrative 06/19/2024 9:18 PM EDT [facility] [place] [address] Mammography Report Signed Patient: Maryann Tan MR #: [id number] : 1970 Acct:[id number] Age/Sex: 54 / F ADM Date: 05/25/24 Loc: HO.MAMMO Attending Dr: Cedric Liao MD Ordering Physician: Cedric Liao MD Results: 0Incomplet e: Needs Additional Imaging Evaluation Date of Service: 05/25/24 Follow Up: Additional Imagi ng Procedure(s): MM tomosynthesis screening BI Accession Number(s): [id number] cc: Cedric Liao MD EXAMINATION: MM SCREENING [...] signed by Melissa Welch MD in OV> 06/19/242101 DD/ 1245 TD/TT: Compo Caster: Procedure Note Donotuseinterpreter, Image - 06/19/2024 [facility] [address] [place], [place] [address] Mammography Report Signed Patient: Maryann Tan AMR #: [id number] : 1970Acct:[id number] Age/Sex: 54 / FADM Date: 05/25/24 Loc: HO.MAMMO Attending Dr: Cedric Liao MD Ordering Physician: Cedric Liao MDResults: 0Incomplet e: Needs Additional Imaging Evaluation Date of Service: 05/25/24Follow Up: Additional Imagi ng Procedure(s): MM tomosynthesis screening BI Accession Number(s): [id number] cc: Cedric Liao MD EXAMINATION: MM SCREENING [...] in OV> 06/19/24 2102 DD/ 1245 TD/TT: Compo Caster: Cedric Name IMG BI PROCEDURES Edited Result - Final * (ABNORMAL) Colonoscopy (07/21/2023) Colonoscopy Abnormal(A ) Normal Cedric Name HEALTH MAINTENANCE Final Result * Pap Smear (12/24/2019) Pap Negative for intraephithelial lesion or malignancy Negative for intraephithelial lesion or malignancy, Other HPV Undetected 12/24/2019 Historical Provider HEALTH MAINTENANCE Final Result from Last 3 Months or Most Recently Relevant to Health Maintenance Insurance [facility] [address] [place] [id number] [facility] [address] [address] DENTAL - HSN PARTIAL (MEDICAID) Care Teams Turkey Cleaner Relationship Specialty Start Date End Date Name, MD Cedric [address] [place] [address] PCP - General Family Medicine 04/06/16
--- OUTSIDE RECORDS SUMMARY | 2025-05-21 11:15 | XMS_ITS | Clinical Summary ---
Author Organization [facility] Building Address [address] [place] [address] Phone Care Team Providers Care Independent Consultant Name Role Phone Unavailable Primary Care Provider [...] 10:45 AM EDT Consult Orthopedic Oncology - [place] [address] [place] [address] Jarad Quevedo MD [address] [place] [address] Health Maintenance Due Date Last [...] Influencers of Health Screening 04/12/2025 Influenza Vaccine (#1) 2025 HIB Vaccines Aged Out No longer [...] patient's age to complete this topic [place] [address] [address] [address] PUBLIC PLANS
--- OUTSIDE RECORDS SUMMARY | 2025-05-21 11:15 | XMS_ITS | Encounter Summary ---
Author Organization [facility] Address [address] [facility] [address] [place] [address] Phone Care Team Providers Care Drill Operator Name Role Phone Name, Cedric NICK Primary Care Provider [phone] Encounter Details Date Type Department Care Team (Late Contact Info) Description 02/02/2022 Telephone [facility] [address] [place] [address] Jasiel Oliver, [address] [address] Social History Tobacco Use Types Packs/Day Years [...] send to Dr Liao. Thank you FAX# [phone] documented in this encounter Plan of Treatment Upcoming Encounters Date Type Department Care Team (Late Contact Info) Description 09/23/2025 10:00 AM EST Office Visit [facility] [address] [phone] Buddy Ortiz MD [address] [address] documented as of this encounter Visit Diagnoses Not on filedocumented in this encounter Care Teams Drill Operator Relationship Specialty Start Date End Date Name, MD Cedric [address] [place] [address] PCP - General Internal Medicine 02/02/22 documented as of this encounter
== END 2025-05-21 11:18 | disposition home or self-care (01) ==
LOC: HO.HWS 10:23
PROVIDERS: Visit Provider Obstetrics & Gynecology
DX: Z01.419 Encounter for gynecological examination (general) (routine) without abnormal findings (principal); N90.4 Leukoplakia of vulva
CPT/HCPCS: 99396; 99459

== ENCOUNTER → 2025-05-21 10:23 | Outpatient (BNVA) | payer OTHER, SELFPAY | PROVIDERS: Visit Provider Obstetrics & Gynecology | DX: Z01.419 Encounter for gynecological examination (general) (routine) without abnormal findings (principal); N90.4 Leukoplakia of vulva | CPT/HCPCS: 99396 ==

== ENCOUNTER 2025-05-28 09:59 | Outpatient (REF) | payer OTHER, SELFPAY ==
--- OUTSIDE RECORDS SUMMARY | 2025-05-28 10:53 | XMS_ITS | Encounter Summary ---
Author Organization [facility] Address [address] [facility] [address] [place] [address] Phone Care Team Providers Care Home Health Nurse Name Role Phone Name, Cedric NICK Primary Care Provider [phone] Encounter Details Date Type Department Care Team (Late Contact Info) Description 02/02/2022 Telephone [facility] [address] [place] [address] Jasiel Oliver, [address] [address] Social History Tobacco Use Types Packs/Day Years [...] send to Dr Liao. Thank you FAX# [phone] documented in this encounter Plan of Treatment Upcoming Encounters Date Type Department Care Team (Late Contact Info) Description 09/23/2025 10:00 AM EST Office Visit [facility] [address] [phone] Buddy Ortiz MD [address] [address] documented as of this encounter Visit Diagnoses Not on filedocumented in this encounter Care Teams Home Health Nurse Relationship Specialty Start Date End Date Name, MD Cedric [address] [place] [address] PCP - General Internal Medicine 02/02/22 documented as of this encounter
--- OUTSIDE RECORDS SUMMARY | 2025-05-28 10:53 | XMS_ITS | Clinical Summary ---
Author Organization [employer] Address [address] [place] [address] [address] [place] [address] Care Team Providers Care Brush Worker Name Role Phone Name, Cedric NICK Primary Care Provider [phone] Allergies Active Allergy Reactions Criticality Noted Date [...] IN WATER AND TAKE ONCE DIRECTED BY [facility] GI DEPT 05/31/20 23 Active Acetaminophen [...] onet of right knee pain. [place] [facility] [place]. Work up included a RLE [...] Type Department Care Team Description 04/23/[address] [address] Cedric Liao MD 04/23/[address] [address] Cedric Liao MD Med Refill (Pt requesting med refill for Lisinopril ) 03/27/2025 Results Follow-Up [address] [address] Cedric Liao MD MR Knee w/o Contrast Right 03/24/2025 Orders Only [facility] External Provider, [facility] 03/20/[address] [address] Alanis Pinto [place] may recall 03/19/[address] [address] Radha Sharp RN 03/12/2025 10:45 AM EDT Office Visit [address] [address] Cedric Liao MD Osteoarthritis of right knee, unspecified osteoarthritis type (Primary Dx); Seasonal allergic rhinitis, unspecified trigger; Acquired hypothyroidism; High cholesterol; Proteinuria, unspecified type 03/12/2025 Travel 03/11/[address] [address] Cedric Liao MD Chart Prep from Last [...] Description 06/27/2025 10:30 AM EDT Office Visit [facility] MEDICINE [address] [place] [address] Name, MD [facility]edric [address] [facility] [place] [address] 09/18/2025 3:00 PM EST Office Visit [facility] ADULT DENTAL [address] [place], [place] [phone] Iza Dial [address] [place], [place] [phone] Health Maintenance Due Date Last Done Comments [...] PM EDT Narrative 04/16/2025 4:22 PM EDT [place] [address] Ultrasound Report Signed Patient: Maryann Tan MR #: [id number] : 1970 Acct:[id number] Age/Sex: 54 / F ADM Date: 04/15/25 Loc: HO.US Attending Dr: Fatimah REIS Ordering Physician: Fatimah Claudio Date of Service: 04/15/25 Procedure(s): US renal BI Accession Number(s): [id number] cc: Fatimah Claudio; Name,Cedric NICK CLINICAL HISTORY: [...] 04/16/25 1621 DD/ 162 TD/TT: 04/16/25 162 Silviculture Forester: Procedure Note Donotuseinterpreter, Image - 04/16/2025 [place] [address] Ultrasound Report Signed Patient: Maryann Tan AMR #: [id number] : 1970Acct:[id number] Age/Sex: 54 / FADM Date: 04/15/25 Loc: HO.US Attending Dr: Fatimah REIS Ordering Physician: Fatimah Claudio Date of Service: 04/15/25 Procedure(s): US renal BI Accession Number(s): [id number] cc: Fatimah Claudio; Name,Cedric NICK CLINICAL HISTORY: [...] Roth MD Signed By: <Electronically signed by Gian Roth MD in OV> 04/16/25 1621 DD/ 1620 TD/TT: 04/16/25 1620 Silviculture Forester: us [facility] External Provider IMG US PROCEDURES Final Result * MR Knee w/o Contrast Right (03/24/2025 10:11 AM EDT) Anatomical Region Laterality Modality Magnetic Resonan ce 03/24/2025 10:1 1 AM EDT Narrative 03/25/2025 9:11 AM EDT [place] [address] Magnetic Resonance Report Signed Patient: Maryann Tan MR #: [id number] : 1970 Acct:[id number] Age/Sex: 54 / F ADM Date: 03/24/25 Loc: HO.MRI Attending Dr: Jase Manning MD Ordering Physician: Jase Manning MD Date of Service: 03/24/25 Procedure(s): MR knee RT wo con Accession Number(s): [id number] cc: Name,Cedric NICK; Jase Manning MD EXAMINATION: [...] 03/25/25 0907 DD/ 1011 TD/TT: 03/24/25 1021 Silviculture Forester: Procedure Note Donotuseinterpreter, Image - 03/25/2025 [place] [address] Magnetic Resonance Report Signed Patient: Maryann Tan AMR #: [id number] : 1970Acct:[id number] Age/Sex: 54 / FADM Date: 03/24/25 Loc: HO.MRI Attending Dr: Jase Manning MD Ordering Physician: Jase Manning MD Date of Service: 03/24/25 Procedure(s): MR knee RT wo con Accession Number(s): [id number] cc: Yanni,Cedric NICK; Jase Manning MD EXAMINATION: [...] 03/25/25 0907 DD/ 1011 TD/TT: 03/24/25 1021 Silviculture Forester: us [facility] External Provider IMG MRI PROCEDURES Final Result * TSH W/Reflex to FT4 (03/12/2025 11:17 AM EDT) TSH reflex Free T4 1.70 0.32 - 4.0 uIU/mL [facility] Blood Venous blood specimen / Unknown 03/12/2025 11:17 AM EDT 03/12/2025 1:10 PM EDT Cedric Liao MD LAB BLOOD ORDERABLES Final Resul t Performing Organization Address City/[facility] Co de Phone Number [facility] [address] [place] [address] [phone] * (ABNORMAL) Lipid Panel, Standard (03/12/2025 11:17 AM EDT) Triglycerides 313(H) <150 mg/dL [facility] Comment:Desirable Triglyceri de: less than 150 mg/dLBorderline High Triglyceride 150-199 mg/dLHigh Triglyceride: 200-499 mg/dLVery High Triglyceride: greater than or equal to 5OO mg/dL Cholesterol 205(H) <200 mg/dL [facility] Comment:Desirable Cholestero l: less than 200 mg/dLBorderline High Cholesterol: 200-239 mg/dLHigh Cholesterol: greater than 239 mg/dL LDL Cholesterol Calculated 102(H) <100 mg/dL [facility] Comment:Desirable LDL: less than 100 mg/dLNear Optimal/Above Optimal LDL: 110- 129 mg/dLBorderline High LDL: 130-159 mg/dLHigh LDL: 160-189 mg/dLVery High LDL: greater than or equal to 190 mg/dL HDL Cholesterol 41 >40 mg/dL [facility] Comment:Desirable HDL: great er than 40 mg/dL Note: This HDL assay may give artificially low results in patients with liver disease. Blood Venous blood specimen / Unknown 03/12/2025 11:17 AM EDT 03/12/2025 1:10 PM EDT Cedric Liao MD LAB BLOOD ORDERABLES Final Resul t Performing Organization Address City/[facility]/ZIP Co de Phone Number [facility] [address] [place] [phone] * Hepatitis C Antibody with Reflex to HCV, RNA, Quantitative, Real-Time PCR (10/03/2024 11:20 AM EST) Hepatitis C Antibody Nonreactive Nonreactive [facility] Comment:Antibodies to HCV no t detected; does not exclude early acuteHCV infection. Blood Venous blood specimen / Unknown 10/03/2024 11:20 AM EST 10/03/2024 1:16 PM EST us Cedric Liao MD LAB BLOOD ORDERABLES Final Resul t Performing Organization Address City/[facility]/ZIP Co de Phone Number [facility] [address] [place] [phone] [phone] * HIV-1/2 Antigen and Antibodies, Fourth Generation, with Reflexes (10/03/2024 11:20 AM EST) HIV AB/AG Nonreactive Nonreactive [facility] Comment:HIV-1 p24 Ag and/or HIV-1/HIV-2 Ab not detected.A test result that is nonreactive does not exclude thepossibility of exposure to or infection with HIV-1 and/orHIV-2. Nonreactive results in this assay for individualswith prior exposure to HIV-1 and/or HIV-2 may be due toantigen and antibody levels that are below the limit ofdetection of this assay.The [email or web address] HIV Ag/Ab Combo assay result andsupplemental assay [...] Performing Organization Address City/[facility]/ZIP Co de Phone Number [facility] [address] [place] [phone] [phone] * BI Mammogram Screening Tomosynthesis Bilateral (05/25/2024 12:45 PM EDT) Anatomical Region Laterality Modality Breast Bilateral Mammography 05/25/2024 12:4 5 PM EDT Narrative 06/19/2024 9:18 PM EDT [facility] [place] [address] Mammography Report Signed Patient: Maryann Tan MR #: [id number] : 1970 Acct:[id number] Age/Sex: 54 / F ADM Date: 05/25/24 Loc: HO.MAMMO Attending Dr: Cedric Liao MD Ordering Physician: Cedric Liao MD Results: 0Incomplet e: Needs Additional Imaging Evaluation Date of Service: 05/25/24 Follow Up: Additional Imagi ng Procedure(s): MM tomosynthesis screening BI Accession Number(s): [id number] cc: Cedric Liao MD EXAMINATION: MM SCREENING [...] MD in OV> 06/19/242101 DD/ 1245 TD/TT: Silviculture Forester: Procedure Note Donotuseinterpreter, Image - 06/19/2024 [facility] [address] [place], [place] [address] Mammography Report Signed Patient: Maryann Tan AMR #: [id number] : 1970Acct:[id number] Age/Sex: 54 / FADM Date: 05/25/24 Loc: HO.MAMMO Attending Dr: Cedric Liao MD Ordering Physician: Cedric Liao MDResults: 0Incomplet e: Needs Additional Imaging Evaluation Date of Service: 05/25/24Follow Up: Additional Imagi ng Procedure(s): MM tomosynthesis screening BI Accession Number(s): [id number] cc: Cedric Liao MD EXAMINATION: MM SCREENING [...] in OV> 06/19/24 2102 DD/ 1245 TD/TT: Silviculture Forester: Cedric Name IMG BI PROCEDURES Edited Result - Final * (ABNORMAL) Colonoscopy (07/21/2023) Colonoscopy Abnormal(A ) Normal Cedric Name HEALTH MAINTENANCE Final Result * Pap Smear (12/24/2019) Pap Negative for intraephithelial lesion or malignancy Negative for intraephithelial lesion or malignancy, Other HPV Undetected 12/24/2019 Historical Provider HEALTH MAINTENANCE Final Result from Last 3 Months or Most Recently Relevant to Health Maintenance Insurance [facility] [address] [place] [id number] [facility] [address] [address] DENTAL - HSN PARTIAL (MEDICAID) Care Teams Brush Worker Relationship Specialty Start Date End Date Name, MD Cedric [address] [place] [address] PCP - General Family Medicine 04/06/16
== END 2025-05-28 10:00 | disposition home or self-care (01) ==
LOC: HO.MAMMO 09:59
PROVIDERS: PCP Internal Medicine Geriatric Medicine; Visit Provider Internal Medicine Geriatric Medicine
DX: Z12.31 Encounter for screening mammogram for malignant neoplasm of breast (principal)
CPT/HCPCS: 77063; 77067

== ENCOUNTER → 2025-05-28 10:00 | Outpatient (BNV) | payer OTHER, SELFPAY | PROVIDERS: PCP Internal Medicine Geriatric Medicine; Visit Provider Internal Medicine | DX: Z12.31 Encounter for screening mammogram for malignant neoplasm of breast (principal) | CPT/HCPCS: 77063; 77067 ==

== ENCOUNTER 2025-06-11 10:10 | Outpatient (AMB) | payer OTHER, SELFPAY ==
--- NOTE | 2025-06-11 10:26 | MHC.OFFVIS ---
Vital Signs 06/11/25 10:28 Height 5 ft 1 in Weight 141 lb BMI 26.6 Intake Visit Reasons: vulva biopsy Wood Boat Builder Supervisor Required: Yes Wood Boat Builder Supervisor Language: Commercial Escrow Officer Services: Wood Boat Builder Supervisor Present (in person) Wood Boat Builder Supervisor Name: Clair INGRAM Information Interpreted: non-clinical & clinical Machine Operator Replanter: Machine Operator Replanter Present (Clair INGRAM) Accompanied by: Self / Same As Patient Allergies ceftriaxone Allergy (Severe, Verified 06/11/25 10:35) Anaphylaxis Iodinated Contrast Media (IV Contrast Dye) Allergy (Severe, Verified 06/11/25 10:35) Anaphylaxis magnesium hydroxide (From Milk of Magnesia) Allergy (Intermediate, Verified 06/11/25 10:35) Rash HPI Comments Details: Presenting for vulvar biopsy if regarding bilateral leukoplakia PFSH Medical History Hemorrhoids with complication Endometrial hyperplasia Heartburn GERD (gastroesophageal reflux disease) Skin lesion of back Kidney stone Vitamin D deficiency Hypothyroidism Surgical History Hx of ventral hernia repair (05/31/24) Hx of unilateral oophorectomy History of surgery Tubal ligation status Hx of colonoscopy Hx of esophagogastroduodenoscopy Family History Father Hypertension Respiratory failure Mother Pancreatic cancer Social History Household Members: Spouse Housing: Apartment Are you a primary acute care certified nursing assistant to a significant other at home: No Do you presently have visiting nurse or other home services: No Alcohol intake: never Patient Tobacco Use Status: Never used Tobacco Second Hand Smoke Exposure: No service: No Current occupational status: employed Current occupation: [employer] Sexual orientation: Straight/Heterosexual Gender identity: Female Female Reproductive History Menstrual Age of Menarche: 16 Review of Systems Const All systems reviewed & are unremarkable except as noted in HPI and below Reports as per HPI and Reports no additional complaints GI Reports no additional complaints Reports no additional complaints Physical Exam Vital Signs: BMI result Body Mass Index 26.6 Office Procedures COAL DUMPING EQUIPMENT OPERATOR Biopsy Before the procedure was started d/w patient the procedure, alternatives ( do nothing, medical rx), & all the risks associated with the procedure ( bleeding , infection, vulvar scarring, painful intercourse, injury to vessels, possible need for transfusion with all its risks) then patient signed the consent. Preop dx: Bilateral labia majora leukoplakia Op: Bilateral labia majora leukoplakia biopsies Post op: Same Anesthesia: Lidocaine 1% 3cc used Procedure: Using betadine the area was scrubbed and draped in the usual manner. 3 cc of lidocaine was used for anesthesia at the Bilateral labia majora leukopla area ; using punch biopsy and pickup the Bilateral labia majora leukoplakia lesions were biopsied, Pressure was used for hemostasis. The patient tolerated the procedure well. Discharge Instructions: The patient was instructed to schedule an appointment in 2 weeks for follow-up and to call if temp>100.4, area of the biopsy redness or pain, nausea/vomiting. This note was generated with a voice recognition program. Some errors may have been overlooked during the review of this note. Sometimes these errors may affect the content or meaning of a given sentence. 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
[2025-06-11 10:28] VITALS: BMI 26.6
--- OUTSIDE RECORDS SUMMARY | 2025-06-11 10:57 | XMS_ITS | Clinical Summary ---
Author Organization [facility] Address [address] [place] [address] Phone Care Team Providers Care Cadence Specialists Name Role Phone Unavailable Primary Care Provider [...] 10:45 AM EDT Consult Orthopedic Oncology - [place] [address] [place] [address] Jarad Quevedo MD [address] [place] [address] Health Maintenance Due Date Last Done Comments Breast Cancer Screening 1970 DTaP,Tdap,and Td Vaccines (1 - Tdap) 1987 Hepatitis B Vaccines (1 of 3 - 19+ 3-dose series) 1987 Cervical Cancer Screening: P ap Smear 1989 Pneumococcal Vaccine: 50+ Ye ars (1 of 1 - PCV) 2018 Zoster Vaccines (1 of 2) 2018 COVID-19 Vaccine ( - 2023-2 5 season) 2024 Depression Screening 11/14/2024 Colorectal Cancer Screening: Colonoscopy 04/12/2025 HIV Screening 04/12/2025 Hepatitis C Screening [...] patient's age to complete this topic [place] [address] [place] [address] PUBLIC PLANS
--- OUTSIDE RECORDS SUMMARY | 2025-06-11 10:57 | XMS_ITS | Encounter Summary ---
Author Organization [employer] Address [address] [facility] [address]t [place] [address] Care Team Providers Care Janitorial Assistant Name Role Phone Name, Cedric NICK Primary Care Provider [phone] Encounter Details Date Type Department Care Team ([facility] Contact Info) Description 05/28/2025 Orders Only [facility] MEDICINE [address] [place], [place] [phone] Name, MD Cedric [address] [place] [address] Social History Tobacco Use Types Packs/Day Years [...] Description 06/27/2025 10:30 AM EDT Office Visit [facility] MEDICINE [address] [place] [address] Name, MD Cedric [address] [place] [address] 09/18/2025 3:00 PM EST Office Visit [facility] ADULT DENTAL [address] [place] [address] Josh Dialaris [address] [place] [address] documented as of this encounter Procedures Procedure Name Priority Date/Time Associated Diagnosis Comments BI MAMMOGRAM SCREENING TOMOSYNTHESIS BILATERAL Routine 05/28/2025 10:12 AM EDT documented in this encounter Results * BI Mammogram Screening Tomosynthesis Bilateral (05/28/2025 10:12 AM EDT) Anatomical Region Laterality Modality Breast Bilateral Mammography 05/28/2025 10:1 2 AM EDT Narrative 06/10/2025 9:26 AM EDT [facility] [address] [place] [address] Mammography Report Signed Patient: Maryann Tan MR #: [id number] : 1970 Acct:[id number] Age/Sex: 55 / F ADM Date: 05/28/25 Loc: MAMMO Attending Dr: Cedric Liao MD Ordering Physician: Cedric Liao MD Results: 1Negative Date of Service: 05/28/25 Follow Up: 1 Year From Orig inal Mammogram Procedure(s): MM tomosynthesis screening BI Accession Number(s): [id number] cc: Cedric Liao MD EXAMINATION: MM SCREENING DIGITAL BREAST TOMOSYNTHESIS, BILATERAL CLINICAL INFORMATION: Screening. Asymptomatic. COMPARISON: Mammography: Comparison is made with available priors TECHNIQUE: Digital breast mammography with tomosynthesis is performed in both the craniocaudal and mediolateral oblique views along with computer-aided detection (CAD). FINDINGS: There are scattered areas of fibroglandular density (ACR BI-RADS breast composition Category b). There are no significant masses, abnormal calcifications, or other abnormalities. MM/MM tomosynthesis screening BI IMPRESSION: No mammographic evidence of malignancy. ASSESSMENT: BI-RADS BI-RADS 1 - Negative RECOMMENDATION: Routine annual mammography screening. 1 year F/U This examination should not preclude the clinical evaluation of a suspicious palpable abnormality. This patient's information was entered into a reminder system with a target due date for their next mammogram. Electronically signed by: Clau Sanchez DO 06/10/2025 09:23 AM EDT Dictated By: Clau Sanchez DO Signed By: <Electronically signed by Clau Sanchez DO in OV> 06/10/25 0923 DD/ 1012 TD/TT: 05/28/25 1025 Wax Coating Machine Tender: Procedure Note Donotuseinterpreter, Image - 06/10/2025 Jeff [facility] [address] [place], [place] [id number] Mammography Report Signed Patient: Maryann Tan AMR #: [id number] : 1970Acct:[id number] Age/Sex: 55 / FADM Date: 05/28/25 Loc: EMILO Attending Dr: Cedric Liao MD Ordering Physician: Cedric Liaoesults: 1Negative Date of Service: 05/28/25Follow Up: 1 Year From [facility] Mammogram Procedure(s): MM tomosynthesis screening BI Accession Number(s): [id number] cc: NameCedric MD EXAMINATION: MM SCREENING DIGITAL BREAST TOMOSYNTHESIS, BILATERAL CLINICAL INFORMATION: Screening. Asymptomatic. COMPARISON: Mammography: Comparison is made with available priors TECHNIQUE: Digital breast mammography with tomosynthesis is performed in both the craniocaudal and mediolateral oblique views along with computer-aided detection (CAD). FINDINGS: There are scattered areas of fibroglandular density (ACR BI-RADS breast composition Category b). There are no significant masses, abnormal calcifications, or other abnormalities. MM/MM tomosynthesis screening BI IMPRESSION: No mammographic evidence of malignancy. ASSESSMENT: BI-RADS BI-RADS 1 - Negative RECOMMENDATION: Routine annual mammography screening. 1 year F/U This examination should not preclude the clinical evaluation of a suspicious palpable abnormality. This patient's information was entered into a reminder system with a target due date for their next mammogram. Electronically signed by: Clau Sanchez DO 06/10/2025 09:23 AM EDT Dictated By: Clau Sanchez DO Signed By: <Electronically signed by Clau Sanchez DO in OV> 06/10/25 0923 DD/ 1012 TD/TT: 05/28/25 1025 Wax Coating Machine Tender: Cedric Liao MD IMG BI PROCEDURES Final Result documented in this encounter Visit Diagnoses Not on filedocumented in this encounter Additional Health Concerns Assessment Noted Time PHQ-9 Depression Total Score: 0 02/20/20 24 10:24 AM EDT documented as of this encounter Care Teams Janitorial Assistant Relationship Specialty Start Date End Date Name, MD Cedric [address] [place] [address] PCP - General Family Medicine 04/06/16 documented as of this encounter
--- OUTSIDE RECORDS SUMMARY | 2025-06-11 10:58 | XMS_ITS | Encounter Summary ---
Author Organization [facility] Address [address] [facility] [address] [place] [address] Phone Care Team Providers Care President Of The [place] Name Role Phone Name, Cedric NICK Primary Care Provider [phone] Encounter Details Date Type Department Care Team (Late Contact Info) Description 02/02/2022 Telephone [facility] [address] [place] [address] Jasiel Oliver, [address] [address] Social History Tobacco Use Types Packs/Day Years [...] complete and I can send to Dr Laio. Thank you FAX# [phone] documented in this encounter Plan of Treatment Upcoming Encounters Date Type Department Care Team (Late Contact Info) Description 09/23/2025 10:00 AM EST Office Visit [facility] [address] [phone] Buddy Ortiz MD [address] [address] documented as of this encounter Visit Diagnoses Not on filedocumented in this encounter Care Teams President Of The [place] Relationship Specialty Start Date End Date Name, MD Cedric [address] [place] [address] PCP - General Internal Medicine 02/02/22 documented as of this encounter
== END 2025-06-11 10:54 | disposition home or self-care (01) ==
LOC: HO.HWS 10:10
PROVIDERS: PCP Internal Medicine Geriatric Medicine; Visit Provider Obstetrics & Gynecology
DX: N90.4 Leukoplakia of vulva (principal)
CPT/HCPCS: 56605; 56606

== ENCOUNTER 2025-06-11 10:10 | Outpatient (REF) | payer OTHER, SELFPAY | END 2025-06-11 10:11 | disposition home or self-care (01) | LOC: HO.LNP 10:10 | PROVIDERS: PCP Internal Medicine Geriatric Medicine; Visit Provider Obstetrics & Gynecology | DX: N90.4 Leukoplakia of vulva (principal) | CPT/HCPCS: 56605; 56606; 88305; 88312 ==

== ENCOUNTER 2025-06-27 10:38 | Outpatient (REF) | payer OTHER, SELFPAY ==
--- OUTSIDE RECORDS SUMMARY | 2025-06-27 11:45 | XMS_ITS | Clinical Summary ---
Author Organization [employer] Address [address] [place] [address] 7[address] [place] [address] Care Team Providers Care Ring Stamper Name Role Phone Name, Cedric NICK Primary Care Provider [phone] Allergies Active Allergy Reactions Criticality Noted Date [...] CAPSULE BY MOUTH ONCE DAILY 022 Active docusate sodium (Colace) 100 MG capsule TAKE 1 CAPSULE BY MOUTH AT BEDTIME 023 Active Procto-Med HC 2.5 % rectal creamIndications: Diverticulitis of large intestine without perforation or abscess without bleeding APPLY RECTALLY 2-4 TIMES PER DAY NEEDED FOR HEMORRHOIDS 30 g 2 023 Active polyethylene glycol, PEG, 3350 (Glycolax) 17 GM/SCOOP powder MIX 238 GRAM IN WATER AND TAKE ONCE DIRECTED BY [facility] GI DEPT 023 Active Acetaminophen Extra Strength 500 MG tabletIndications :Acquired hypothyroidism TAKE 2 TABLETS BY MOUTH EVERY 8 HOURS NEEDED fevor OR FOR PAIN 90 tablet 024 Active omeprazole (PriLOSEC) [address] capsule Take 1 capsule by mouth Once per day. 024 Active meloxicam (Mobic) 15 MG tabletIndications :Acute pain of right knee Take 1 tablet (15 mg) by mouth Once per day. 30 tablet 11 2025 Active levothyroxine (Synthroid, Levoxyl) 75 MCG tabletIndications :Acquired hypothyroidism TAKE 1 TABLET BY MOUTH EVERY DAY BEFORE BREAKFAST 90 tablet 1 Active fluticasone (Flonase) 50 MCG/ACT nasal sprayIndications: Seasonal allergic rhinitis, unspecified trigger Administer 2 sprays into each nostril Once per day. Shake gently. Before first use, prime pump. After use, clean tip and replace cap. 16 g 2 2025 Active cetirizine (ZyrTEC) 10 MG tablet Take 1 tablet (10 mg) by mouth Once per day. 30 tablet 2 Active lisinopril 10 MG tablet Take 1 tablet (10 mg) by mouth Once per day. Active empagliflozin (Jardiance) 10 MG Take 1 tablet (10 mg) by mouth Once per day. 30 tablet 11 025 2025 Active lisinopril 10 MG tablet TAKE 1 TABLET BY MOUTH ONCE DAILY 022 2024 Discontinued(R eorder (will not trigger notification to Pharmacy)) empagliflozin (Jardiance) 10 MG Take 1 tablet (10 mg) by mouth Once per day. 025 2024 Discontinued(R eorder (will not trigger notification to Pharmacy)) Active Problems Problem Noted Date Diagnosed Date Pigmented villonodular synovitis of right knee 0 06/27/2025 Acute pain of right knee 02/05/2025 Assessment & Plan (02/05/2025 1:05 PM EDT): Patient of Dr. Liao here with c/o new onet of right knee pain. Seen at [facility] [place]/02/[place]. Work up included a RLE [...] 01/09/2023 Complex cyst of left ovary 11/18/2022 Overview (06/27/2025): She had unilateral oophorectomy Diverticulitis large intestine 11/18/2022 Overview (06/27/2024): Recurrent. [...] Encounters Date Type Department Care Team Description 06/27/2025 10:30 AM EDT Office Visit [facility] [address] [place] [phone] Cedric Liao MD Proteinuria, unspecified type (Primary Dx); Pigmented villonodular synovitis of right knee 06/27/2025 Travel 06/26/[address] [address] Jen Muñoz [place] Chart Prep 06/11/2025 Orders Only GENERIC EXTERNAL DATA DEPARTMENT Provider, Generic External Data 05/28/2025 Orders Only [facility] [address] [place] [phone] Cedric Liao MD 04/23/[address] [address] Cedric Liao MD 04/23/[address] [address] Cedric Liao MD Med Refill (Pt requesting med refill for Lisinopril ) 03/27/2025 Results Follow-Up [facility] [address] [place] [phone] Cedric Liao MD MR Knee w/o Contrast Right from Last 3 Months Immunizations Immunization Administration [...] Date Recorded Patient Health Questionnaire-9 Score 0 06/27/2025 Patient Health Questionnaire-9 Score 0 06/27/2025 Last PHQ-9: Questionnaire Data Not on file 0 06/27/2025 Housing Stability Answer Date Recorded What is [...] Date Recorded Patient Health Questionnaire-2 Score 0 06/27/2025 Comments Unknown Sex and Gender Information Value Date Recorded Sex Assigned at Female 09/13/2022 10:29 AM EDT Legal Sex Female 10:29 AM EDT Gender Identity Female 09/13/2022 10:29 AM EDT Sexual Orientation Straight 09/13/2022 10 :29 AM EDT Last Filed Vital Signs Vital Sign Reading Time Taken Comments Blood Pressure 144/82 06/27/2025 10:09 AM EDT Pulse 85 06/27/2025 10:09 AM EDT Temperature 36.1 C (97 F) 06/27/2025 10:09 AM EDT Respiratory Rate 12 06/27/2025 10:09 AM EDT Oxygen Saturation 97% 06/27/2025 10:09 AM EDT Inhaled Oxygen Concentration - - Weight 65.9 kg (145 lb 3.2 oz) 06/27/2025 10:09 AM EDT Height 154.9 cm (5' 1 ) 06/27/2025 10:09 AM EDT Body Mass Index 27.44 06/27/2025 10:09 AM EDT Plan of Treatment Upcoming Encounters Date Type Department Care Team (Late st Contact Info) Description 09/18/2025 3:00 PM EST Office Visit [facility] [address] [place] [address] Jayro, Iza [address] [place] [address] 09/26/2025 10:30 AM EST Office Visit [facility] [address] [place] [address] Name, MD Cedric [address] [place] [address] Health Maintenance Due Date Last Done Comments CT Colonography 1970 FIT DNA/Cologuard 1970 FIT 1970 FOBT 1970 Sigmoidoscopy 1970 Disability Screening 1970 Pneumococcal Vaccine: 50+ Years (1 of 1 - PCV) 2018 COVID-19 Vaccine ( - season) 2024 04/21/2021, 03/24/2021 Cervical Cancer Screening 12/24/2024 HPV/Cotest 12/24/2024 12/24/2019 Pap Smear 12/24/2024 12/24/2019 Dental Oral Exam 01/31/2025 08/02/2024, , 12/18/2019, Additional history exists Dental Prophylaxis 01/31/2025 08/02/2024, 04/01/2022 SDOH Screening 02/19/2025 02/20/2024 Dental X-Ray: Full Mouth 04/02/2025 04/01/2022, 11/0 11/2015 Influenza Vaccine (#1) 2025 , 09/16/2020, 08/09/2018, Additional history exists Dental X-Ray: Bitewings 08/03/2025 08/02/20 24, 04/01/2022, 12/18/2019, Additional history exists Alcohol/Substance Use Screening 06/27/2026 06/27/2025 Depression Screening 06/27/2026 06/27/2025, 06/27/20 25 Tobacco Screening 06/27/2026 06/27/2025 Mammogram 05/28/2027 05/28/2025, 05/14, 05/23/2023, Additional history exists DTaP/Tdap/Td Vaccines (2 - Td or Tdap) 05/31/2027 05/31/2017 Colonoscopy 07/21/2028 07/21/2023, 05/25/2018 Colorectal Cancer Screening 07/21/2028 RSV Patients and Patients Aged 60 years or older (1 - 1-dose 75+ series) 2043 Zoster Vaccines Completed 01/24/2023, 11/22/2022 Hepatitis B Vaccines Completed 03/29/2023, 01/25/20 23 HIV Screening Completed 10/03/2024 Hepatitis C Screening [...] Procedure Name Priority Date/Time Associated Diagnosis Comments HEMATOXYLIN AND EOSIN STAIN Routine 06/11/2025 11:24 AM EDT BI MAMMOGRAM SCREENING TOMOSYNTHESIS BILATERAL Routine 05/28/2025 10:12 AM EDT US RENAL BI Routine 04/16/2025 4:20 PM EDT HEPATITIS C AB W/REFL TO [...] ESTABLISHED PATIENT Routine 08/02/2024 10:00 AM EDT HM COLONOSCOPY Routine 07/21/2023 INTRAORAL - COMPLETE SERIES OF RADIOGRAPHIC IMAGES Routine 04/01/2022 12:00 AM EDT HM PAP/HPV Routine 12/24/2019 from Last 3 Months or Most Recently Relevant to Health Maintenance Results * Hematoxylin and Eosin Stain (06/11/2025 11:24 AM EDT) 06/11/2025 11:2 4 AM EDT 06/11/2025 2:20 PM EDT [facility] - 06/12/2025 12:27 PM EDT ----- ------- Name: Maryann Tan Age/Sex: 55/F : 1970 Unit#: [id number] Attend Dr: Delbert Simons MD Re06/11/25 Status: DEP REF Location: [facility] Disch: ----- ------- SPEC : [id number] RECD: 06/11/25 STATUS: ELIZABETH LUND NUM: [id number] EILEEN: 06/11/25 [facility] DR: Delbert Simons MD ENTERED: 06/11/25 SP TYPE: Surgical OTHR DR: Cedric Liao MD ORDERED: HE Stain/6, Gross Micro L4/2, Specials Gr. 1/2, PASF/2 Diagnosis A. Vulva, right labia majora lesion, biopsy: Lichen sclerosus. B. Vulva, left labia majora lesion, biopsy: Lichen sclerosus. Clinical History Vulva lesion Microscopic Description Microscopic sections reviewed. PAS-F stains on A and B is negative for fungi with appropriate control. Material Received A. Right labia majora lesion B. Left labia majora lesion Gross Description Received in 2 parts. A. Received in formalin labeled right labia majora lesion is a fragment of rubbery, white tissue measuring 0.2 cm in greatest dimension which is wrapped in lens paper and entirely submitted for microscopic examination, 1 piece in cassette A. B. Received in formalin labeled left labia majora lesion is a fragment of rubbery, white tissue measuring 0.3 cm in greatest dimension which is wrapped in lens paper and entirely submitted for microscopic examination, 1 piece in cassette B. ([facility]) Special studies ordered and performed: PAS-F on A1 and B1. IHC S/NG Disclaimer NOTE: Unless otherwise stated, all tissue is formalin-fixed and paraffin-embedded. Some or all of the immunohistochemical tests reported herein may have been developed and their performance characteristics determined by [facility]. They have not been cleared or approved by the U.S. Food and Drug Administration (FDA). However, the FDA has determined that such clearance or approval is not necessary. This laboratory is certified under the Clinical Laboratory Improvement Amendments of 1988 (CLIA) as qualified to perform high complexity clinical laboratory testing. CONTINUED ON NEXT PAGE ----- ------- Name: Ruelas RuelasMaryann Age/Sex: 55/F : 1970 Unit#: [id number] Attend Dr: Delbert Simons MD Re06/11/25 Status: [facility] REF Location: [facility] Disch: ----- ------- SPEC : [id number] RECD: 06/11/25 STATUS: ELIZABETH CARDOZAGi NUM: [id number] EILEEN: 06/11/25 [facility] DR: Delbert Simons MD ENTERED: 06/11/25 SP TYPE: Surgical OTHR DR: Cedric Liao MD ORDERED: HE Stain/6, Gross Micro L4/2, Specials Gr. 1/2, PASF/2 Copies To: Cedric Liao MD [address] [place] [phone] Delbert Simons MD [facility] [address] [place] [address] [place] [phone] ----- ------- Signed (signature on file) Nithya Barry 06/12/25 1227 ----- ------- END OF REPORT us Generic External Data Provider LAB BLOOD ORDERAB LES Final Result Performing Organization Address City/State/[facility] Co de Phone Number [facility] [address] [place] [phone] * BI Mammogram Screening Tomosynthesis Bilateral (05/28/2025 10:12 AM EDT) Anatomical Region Laterality Modality Breast Bilateral Mammography 05/28/2025 10:1 2 AM EDT Narrative 06/10/2025 9:26 AM EDT [facility] [address] [place] [address] Mammography Report Signed Patient: Maryann Tan MR #: [id number] : 1970 Acct:[id number] Age/Sex: 55 / F ADM Date: 05/28/25 Loc: [place] Attending Dr: Cedric Liao MD Ordering Physician: Cedric Liao MD Results: 1Negative Date of Service: 05/28/25 Follow Up: 1 Year From Orig inal Mammogram Procedure(s): MM tomosynthesis screening BI Accession Number(s): [id number] cc: Cedric Liao MD EXAMINATION: MM SCREENING [...] Clau Sanchez DO 06/10/2025 09:23 AM EDT RP Dictated By: Clau Sanchez DO Signed By: <Electronically signed by Clau Sanchez DO in OV> 06/10/25 0923 DD/ 1012 TD/TT: 05/28/25 1025 Tool Lapper Hand: Procedure Note Donotuseinterpreter, Image - 06/10/20[facility] [address] [place] [address] Mammography Report Signed Patient: Maryann Tan AMR #: [id number] : 1970Acct:[id number] Age/Sex: 55 / FADM Date: 05/28/25 Loc: MAMMO Attending Dr: Cedric Liao MD Ordering Physician: Cedric Liaoults: 1Negative Date of Service: 05/28/25Follow Up: 1 Year From Orig inal Mammogram Procedure(s): MM tomosynthesis screening BI Accession Number(s): [id number] cc: Cedric Liao MD EXAMINATION: MM SCREENING [...] 06/10/25 0923 DD/ 1012 TD/TT: 05/28/25 1025 Tool Lapper Hand: us Cedric Liao MD IMG BI PROCEDURES Final Result * US RENAL BI (04/16/2025 4:20 PM EDT) Anatomical Region Laterality Modality Abdomen Ultrasound 04/16/2025 4:20 PM EDT Narrative 04/16/2025 4:22 PM EDT [place] [address] Ultrasound Report Signed Patient: Maryann Tan MR #: [id number] : 1970 Acct:[id number] Age/Sex: 54 / F ADM Date: 04/15/25 Loc: HO.US Attending Dr: Fatimah REIS Ordering Physician: Fatimah Claudio Date of Service: 04/15/25 Procedure(s): US renal BI Accession Number(s): [id number] cc: Fatimah Claudio; Name,Cedric NICK CLINICAL HISTORY: [...] 04/16/25 1621 DD/ 1620 TD/TT: 04/16/25 1620 Tool Lapper Hand: Procedure Note Donotuseinterpreter, Image - 04/16/2025 [place] [address] Ultrasound Report Signed Patient: Maryann Tan AMR #: [id number] : 1970Acct:[id number] Age/Sex: 54 / FADM Date: 04/15/25 Loc: HO.US Attending Dr: Fatimah REIS Ordering Physician: Fatimah Claudio Date of Service: 04/15/25 Procedure(s): US renal BI Accession Number(s): [id number] cc: Fatimah Claudio; Name,Cedric NICK CLINICAL HISTORY: [...] 04/16/25 1621 DD/ 1620 TD/TT: 04/16/25 1620 Tool Lapper Hand: [facility] External Provider IMG US PROCEDURES Final Result * Hepatitis C Antibody with Reflex to HCV, RNA, Quantitative, Real-Time PCR (10/03/2024 11:20 AM EST) Hepatitis C Antibody Nonreactive Nonreactive [facility] Comment:Antibodies to HCV no t detected; does not exclude early acuteHCV infection. Blood Venous blood specimen / Unknown 10/03/2024 11:20 AM EST 10/03/2024 1:16 PM EST Cedric Liao MD LAB BLOOD ORDERABLES Final Resul t [facility] [address] [place] [phone] * HIV-1/2 Antigen and Antibodies, Fourth Generation, with Reflexes (10/03/2024 11:20 AM EST) HIV AB/AG Nonreactive Nonreactive [facility] Comment:HIV-1 p24 Ag and/or HIV-1/HIV-2 Ab not detected.A test result that is nonreactive does not exclude thepossibility of exposure to or infection with HIV-1 and/orHIV-2. Nonreactive results in this assay for individualswith prior exposure to HIV-1 and/or HIV-2 may be due toantigen and antibody levels that are below the limit ofdetection of this assay.The Tealium HIV Ag/Ab Combo assay result andsupplemental assay results should be interpreted inconjunction with the patient's clinical presentation,history and other laboratory results. If the results areinconsistent with clinical evidence, additional testing issuggested to confirm the result. Blood Venous blood specimen / Unknown 10/03/2024 11:20 AM EST 10/03/2024 1:16 PM EST Cedric Name LAB BLOOD ORDERABLES Final Resul t [facility] [address] [place] [phone] * (ABNORMAL) Colonoscopy (07/21/2023) Colonoscopy Abnormal(A ) Normal Cedric Name HEALTH MAINTENANCE Final Result * Pap Smear (12/24/2019) Pap Negative for intraephithelial lesion or malignancy Negative for intraephithelial lesion or malignancy, Other HPV Undetected 12/24/2019 Historical Provider HEALTH MAINTENANCE Final Result from Last 3 Months or Most Recently Relevant to Health Maintenance Insurance * Guarantor: Maryann Tan Account Type Relation to Patient Date of Phone Billing Address Personal/Family Self 1970 [address] [place] [address] [facility] * Guarantor: Maryann Tan Account Type Relation to Patient Date of Phone Billing Address Dental Self 1970 [address] [place] [address] DENTAL - HSN PARTIAL (MEDICAID) * Guarantor: Maryann Tan Account Type Relation to Patient Date of Phone Billing Address Personal/Family Self [address] [place] [address] [employer] [address] [place] [id number] Care Teams Ring Stamper Relationship Specialty Start Date End Date Name, MD Cedric [address] [place] [address] PCP - General Family Medicine 04/06/16
--- OUTSIDE RECORDS SUMMARY | 2025-06-27 11:46 | XMS_ITS | Encounter Summary ---
Author Organization [facility] Address [address] [facility] [facility] [address] [place] [address] Phone Care Team Providers Care Chauffeur [employer] Limousine Name Role Phone Name, Cedric NICK Primary Care Provider [phone] Encounter Details Date Type Department Care Team (Late Contact Info) Description 02/02/2022 Telephone [facility] [address] [facility] [address] [place] [address] Jasiel Oliver, [address] [address] Social History Tobacco Use Types Packs/Day Years [...] send to Dr Liao. Thank you FAX# [phone] documented in this encounter Plan of Treatment Upcoming Encounters Date Type Department Care Team (Late Contact Info) Description 09/23/2025 10:00 AM EST Office Visit [facility] [address] [phone] Buddy Ortiz MD [address] [phone] documented as of this encounter Visit Diagnoses Not on filedocumented in this encounter Care Teams [employer] Limousine Relationship Specialty Start Date End Date Name, MD Cedric [address] [place] [phone] PCP - General Internal Medicine 02/02/22 documented as of this encounter
[2025-06-27 12:12] LABS: Microalbum/Creatinine Ratio Ur 904.0 ug/mg cr (<30)
[2025-06-27 12:17] LABS: Anion Gap 12 (12-20); Blood Urea Nitrogen 13 mg/dL (9-16); Calcium 9.4 mg/dL (8.4-10.2); Carbon Dioxide 28 mmol/L (22-29); Chloride 103 mmol/L (96-108); Estimated Glomerular Filt Rate > 60; Potassium 4.2 mmol/L (3.3-5.1); Sodium 139 mmol/L (135-145)
== END 2025-06-27 10:39 | disposition home or self-care (01) ==
LOC: HO.HHCL 10:38
PROVIDERS: Nurse Practitioner Family; PCP Internal Medicine Geriatric Medicine; Visit Provider Internal Medicine Geriatric Medicine
DX: R80.9 Proteinuria, unspecified (principal)
CPT/HCPCS: 36415; 80048; 82043; 82570

== ENCOUNTER 2025-07-04 09:49 | Outpatient (AMB) | payer OTHER, SELFPAY ==
--- NOTE | 2025-07-04 09:49 | MHC.OFFVIS ---
Intake Visit Reasons: biopsy results Military Aircraft Designer Required: Yes Military Aircraft Designer Language: Gyn Services: Military Aircraft Designer Present (in person) Military Aircraft Designer Name: JUAN JOSE Coulter Information Interpreted: non-clinical & clinical Bank Credit Card Collection Clerk: Bank Credit Card Collection Clerk Present (JUAN JOSE Coulter) Accompanied by: Self / Same As Patient Allergies ceftriaxone Allergy (Severe, Verified 06/11/25 10:35) Anaphylaxis Iodinated Contrast Media (IV Contrast Dye) Allergy (Severe, Verified 06/11/25 10:35) Anaphylaxis magnesium hydroxide (From Milk of Magnesia) Allergy (Intermediate, Verified 06/11/25 10:35) Rash HPI Comments Details: Presenting post vulvar biopsy, doing well with no complaints. The pathology showed the following: A. Vulva, right labia majora lesion, biopsy: Lichen sclerosus. B. Vulva, left labia majora lesion, biopsy: Lichen sclerosus [facility] Medical History Hemorrhoids with complication Endometrial hyperplasia Heartburn GERD (gastroesophageal reflux disease) Skin lesion of back Kidney stone Vitamin D deficiency Hypothyroidism Surgical History Hx of ventral hernia repair (05/31/24) Hx of unilateral oophorectomy History of surgery Tubal ligation status Hx of colonoscopy Hx of esophagogastroduodenoscopy Family History Father Hypertension Respiratory failure Mother Pancreatic cancer Social History Household Members: Spouse Housing: Apartment Are you a primary customer care coordinator to a significant other at home: No Do you presently have visiting nurse or other home services: No Alcohol intake: never Patient Tobacco Use Status: Never used Tobacco Second Hand Smoke Exposure: No service: No Current occupational status: employed Current occupation: [employer] Sexual orientation: Straight/Heterosexual Gender identity: Female Female Reproductive History Menstrual Age of Menarche: 16 Review of Systems Const All systems reviewed & are unremarkable except as noted in HPI and below Reports as per HPI and Reports no additional complaints GI Reports no additional complaints Reports no additional complaints Assessment & Plan Assessment & Plan (1) Lichen sclerosus: Code(s): L90.0 - Lichen sclerosus et atrophicus Category: Medical Plan: Discussed with the patient the pathology results showing lichen sclerosis. Explained to the patient that Lichen sclerosus refers to a benign, chronic, progressive dermatologic condition characterized by marked inflammation, epithelial thinning accompanied by pruritus and pain. In addition, discussed with the patient that there is a small increased risk of squamous cell cancer of the vulva in patients with lichen sclerosus. Adequate treatment of the disease seems to be associated with a reduced risk of development of neoplasia. Instructed the patient to schedule an appointment in a year to examine the affected area, with possible biopsy of suspicious lesions, in addition explained to the patient that she should look at the skin of the affected area and touch with fingertips monthly to search for thickened lumps or sores that do not heal & to report such findings for inspection & possible biopsy to rule out vulvar cancer Will prescribe Clobetasol propionate 0.05% ointment to be applied daily at night for 6 to 12 weeks, followed by maintenance therapy two to three times per week . Medications: New clobetasol 0.05% Then maintenance therapy for 2-3 times per week 1 appl topical BID 45 grams 1RF 2 weeks Coding Level of Care Code Est Pt Level 3 (95436) Diagnoses Lichen sclerosus L90.0
--- OUTSIDE RECORDS SUMMARY | 2025-07-04 11:09 | XMS_ITS | Clinical Summary ---
Author Organization [employer] Address [address] [place] [address] 7t [place] [address] Care Team Providers Care Learn To Swim Instructor Name Role Phone Name, Cedric NICK Primary Care Provider [phone] Allergies Active Allergy Reactions Criticality Noted Date [...] IN WATER AND TAKE ONCE DIRECTED BY [facility] DEPT 023 Active Acetaminophen Extra [...] onet of right knee pain. Seen at [facility] ER 02/02/2025. Work [...] Description 06/27/2025 10:30 AM EDT Office Visit [facility] MED[facility] [address] [place] [phone] NameCedric MD Proteinuria, unspecified type (Primary Dx); Pigmented villonodular synovitis of right knee 06/27/2025 Travel 06/26/[address] [address] Jen Muñoz [place] Chart Prep 06/11/2025 Orders Only GENERIC EXTERNAL DATA DEPARTMENT Provider, Generic External Data 05/28/2025 Orders Only [facility] [address] [place] [phone] Cedric Liao MD 04/23/[address] [address] Cedric Liao MD 04/23/[address] [address] Cedric Liao MD Med Refill (Pt requesting med refill for Lisinopril ) from Last 3 Months Immunizations Immunization Administration [...] Description 09/18/2025 3:00 PM EST Office Visit [facility] ADULT DENTAL [address] [place] [address] Jayro, Iza [address] [place] [address] 09/26/2025 10:30 AM EST Office Visit [facility] MEDICINE [address] [place] [address] Name, MD Cedric [address] [place] [address] Health Maintenance Due Date Last Done Comments [...] Procedure Name Priority Date/Time Associated Diagnosis Comments BASIC METABOLIC PANEL Routine 06/27/2025 10:40 AM EDT Proteinuria, unspecified type ALBUMIN, RANDOM URINE W/CREATININE Routine 06/27/2025 12:00 AM EDT Proteinuria, unspecified type HEMATOXYLIN AND EOSIN STAIN Routine 06/11/2025 11:24 [...] Recently Relevant to Health Maintenance Results * Basic Metabolic Panel (06/27/2025 10:40 AM EDT) Sodium 139 135 - 145 mmol/L [facility] Potassium 4.2 3.3 - 5.1 mmol/L [facility] Chloride 103 96 - 108 mmol/L [facility] Carbon Dioxide 28 22 - 29 mmol/L [facility] Anion Gap 12 12 - 20 [facility] Urea Nitrogen (BUN) 13 9 - 16 mg/dL [facility] Creatinine, Serum 0.71 0.5 - 1.4 mg/dL [facility] Estimated Glomerular Filt Rate >60 [facility] Comment:Chronic Kidney Disea se: Estimated GFR < 60 mL/min/1.32x0Coqzfc Kidney Disease: Estimated GFR < 15 mL/min/1.73m2 Glucose 81 60 - 115 mg/dL [facility] Calcium 9.4 8.4 - 10.2 mg/dL [facility] Blood Venous blood specimen / Unknown 06/27/2025 10:40 AM EDT 06/27/2025 11:20 AM EDT us Cedric Liao MD LAB BLOOD ORDERABLES Final Resul t Performing Organization Address [facility] de Phone Number [facility] [address] [place] [phone] * (ABNORMAL) Albumin, Random Urine W/Creatinine (06/27/2025 12:00 AM EDT) Creatinine, Urine 48.89 mg/dL [facility] Microalbumin Urine 442.0 mg/L [facility] Microalbum Creatinine Ratio Ur 904.0(H) <30 ug/mg cr [facility] Comment:Albumin/Creatinine R atio Reference Ranges: Normal: < 30 ug/mg creatinine Microalbuminuria: 30 - 300 ug/mg creatinineClinical Albuminuria: > 300 ug/mg creatinine Urine (Urine, Random) 06/27/2025 06/27/2025 us Cedric Liao MD LAB URINE ORDERABLES Final Resul t Performing Organization Address [facility] de Phone Number [facility] [address] [place] [phone] * Hematoxylin and Eosin Stain (06/11/2025 11:24 AM EDT) 06/11/2025 11:2 4 AM EDT 06/11/2025 2:20 PM EDT Narrative [facility] - 06/12/2025 12:27 PM EDT ----- ------- Name: Maryann Tan Age/Sex: 55/F : 1970 Unit#: [id number] Attend Dr: Delbert Simons MD Re06/11/25 Status: [facility] REF Location: [facility] Disch: ----- ------- SPEC : [id number] RECD: 06/11/25 STATUS: ELIZABETH LUND NUM: [id number] EILEEN: 06/11/254 [facility] DR: Delbert Simons MD ENTERED: 06/11/25 SP [...] microscopic examination, 1 piece in cassette B. ([facility]) Special studies ordered and performed: PAS-F on A1 and B1. IHC S/NG Disclaimer NOTE: Unless otherwise stated, all tissue is formalin-fixed and paraffin-embedded. Some or all of the immunohistochemical tests reported herein may have been developed and their performance characteristics determined by [facility]. They have not been cleared or approved by the U.S. Food and Drug Administration (FDA). However, the FDA has determined that such clearance or approval is not necessary. This laboratory is certified under the Clinical Laboratory Improvement Amendments of 1988 (CLIA) as qualified to perform high complexity clinical laboratory testing. CONTINUED ON NEXT PAGE ----- ------- Name: Maryann Tan Age/Sex: 55/F : 1970 Unit#: [id number] Attend Dr: Delbert Simons MD Re06/11/25 Status: DEP REF Location: HO.LNP Disch: ----- ------- SPEC : [id number] RECD: 06/11/25 STATUS: ELIZABETH LUND NUM: [id number] EILEEN: 06/11/251124 [facility] DR: Delbert Simons MD ENTERED: 06/11/25 SP TYPE: Surgical OTHR DR: Cedric Liao MD ORDERED: HE Stain/6, Gross Micro L4/2, Specials Gr. 1/2, PASF/2 Copies To: Cedric Liao MD [address] [place] [phone] Delbert Simons MD [facility] [address] [place] [phone] ----- ------- Signed (signature on file) Nithya [place] 06/12/25 1227 ----- ------- END OF REPORT us Generic External Data Provider LAB BLOOD ORDERAB LES Final Result [facility] [address] [place] [phone] * BI Mammogram Screening Tomosynthesis Bilateral (05/28/2025 10:12 AM EDT) Anatomical Region Laterality Modality Breast Bilateral Mammography 05/28/2025 10:1 2 AM EDT Narrative 06/10/2025 9:26 AM EDT [facility] [address] [place] [address] [place] [address] Mammography Report Signed Patient: Maryann Tan MR #: [id number] : 1970 Acct:[id number] Age/Sex: 55 / F ADM Date: 05/28/25 Loc: [place] Attending Dr: Cedric Liao MD Ordering Physician: Cedric Liao MD Results: 1Negative Date of Service: 05/28/25 Follow Up: 1 Year From Orig inal Mammogram Procedure(s): MM tomosynthesis screening BI Accession Number(s): [id number] cc: Cedric Liao MD EXAMINATION: MM SCREENING [...] 06/10/25 0923 DD/ 1012 TD/TT: 05/28/25 1025 [employer]: Procedure Note Donotuseinterpreter, Image - 06/10/2025 [facility] [address] [place] [address] Mammography Report Signed Patient: Maryann Tan AMR #: [id number] : 1970Acct:[id number] Age/Sex: 55 / FADM Date: 05/28/25 Loc: HO.MAMMO Attending Dr: Cedric Liao MD Ordering Physician: Cedric Liaoults: 1Negative Date of Service: 05/28/25Follow Up: 1 Year From Orig inal Mammogram Procedure(s): MM tomosynthesis screening BI Accession Number(s): [id number] cc: Cedric Liao MD EXAMINATION: MM SCREENING [...] 06/10/25 0923 DD/ 1012 TD/TT: 05/28/25 1025 [employer]: us Cedric Liao MD IMG BI PROCEDURES Final Result * US RENAL BI (04/16/2025 4:20 PM EDT) Anatomical Region Laterality Modality Abdomen Ultrasound 04/16/2025 4:20 PM EDT Narrative 04/16/2025 4:22 PM EDT [place] [address] Ultrasound Report Signed Patient: Maryann Tan MR #: [id number] : 1970 Acct:[id number] Age/Sex: 54 / F ADM Date: 04/15/25 Loc: HO.US Attending Dr: Fatimah REIS Ordering Physician: Fatimah Claudio Date of Service: 04/15/25 Procedure(s): US renal BI Accession Number(s): [id number] cc: Fatimah Claudio; Name,Cedric NICK CLINICAL HISTORY: [...] 04/16/25 1621 DD/ 1620 TD/TT: 04/16/25 1620 [employer]: Procedure Note Donotuseinterpreter, Image - 04/16/2025 [place] [address] Ultrasound Report Signed Patient: Maryann Tan [facility] #: [id number] : 1970Acct:[id number] Age/Sex: 54 / FADM Date: 04/15/25 Loc: .US Attending Dr: Fatimah REIS Ordering Physician: Fatimah Claudio Date of Service: 04/15/25 Procedure(s): US renal BI Accession Number(s): [id number] cc: Fatimah Claudio; Name,Cedric NICK CLINICAL HISTORY: [...] 04/16/25 1621 DD/ 1620 TD/TT: 04/16/25 1620 [employer]: [facility] External Provider IMG US PROCEDURES Final Result * Hepatitis C Antibody with Reflex to HCV, RNA, Quantitative, Real-Time PCR (10/03/2024 11:20 AM EST) Hepatitis C Antibody Nonreactive Nonreactive [facility] Comment:Antibodies to HCV no t detected; does not exclude early acuteHCV infection. Blood Venous blood specimen / Unknown 10/03/2024 11:20 AM EST 10/03/2024 1:16 PM EST Cedric Liao MD LAB BLOOD ORDERABLES Final Resul t [facility] [address] [place] [phone] * HIV-1/2 Antigen and Antibodies, Fourth Generation, with Reflexes (10/03/2024 11:20 AM EST) HIV AB/AG Nonreactive Nonreactive [facility] Comment:HIV-1 p24 Ag and/or HIV-1/HIV-2 Ab not detected.A test result that is nonreactive does not exclude thepossibility of exposure to or infection with HIV-1 and/orHIV-2. Nonreactive results in this assay for individualswith prior exposure to HIV-1 and/or HIV-2 may be due toantigen and antibody levels that are below the limit ofdetection of this assay.The [employer] HIV Ag/Ab Combo assay result andsupplemental assay results should be interpreted inconjunction with the patient's clinical presentation,history and other laboratory results. If the results areinconsistent with clinical evidence, additional testing issuggested to confirm the result. Blood Venous blood specimen / Unknown 10/03/2024 11:20 AM EST 10/03/2024 1:16 PM EST Cedric Liao MD LAB BLOOD ORDERABLES Final Resul t [facility] [address] [place] [phone] * (ABNORMAL) Colonoscopy (07/21/2023) Colonoscopy Abnormal(A ) Normal Cedric Liao MD HEALTH MAINTENANCE Final Result * Pap Smear (12/24/2019) Pap Negative for intraephithelial lesion or malignancy Negative for intraephithelial lesion or malignancy, Other HPV Undetected 12/24/2019 [facility] Provider HEALTH MAINTENANCE Final Result from Last 3 Months or Most Recently Relevant to Health [place] [address] [facility]LY [facility] [place] [id number] [place] [phone] DENTAL - HSN PARTIAL (MEDICAID) [address] [place] [phone] Care Teams Learn To Swim Instructor Relationship Specialty Start Date End Date Name, MD Cedric [address] [place] [phone] PCP - General Family Medicine 04/06/16
--- OUTSIDE RECORDS SUMMARY | 2025-07-04 11:09 | XMS_ITS | Encounter Summary ---
Author Organization [facility] Address [address] [facility] [address] [place] [address] Phone Care Team Providers Care Production Support Developer Name Role Phone Name, Cedric NICK Primary Care Provider [phone] Encounter Details Date Type Department Care Team (Late Contact Info) Description 02/02/2022 Telephone [facility] [address] [place] [address] Jasiel Oliver, [address] [address] Social History Tobacco Use Types Packs/Day Years [...] send to Dr Liao. Thank you FAX# [phone] documented in this encounter Plan of Treatment Upcoming Encounters Date Type Department Care Team (Late Contact Info) Description 09/23/2025 10:00 AM EST Office Visit [facility] [address] [phone] Buddy Ortiz MD [address] [phone] documented as of this encounter Visit Diagnoses Not on filedocumented in this encounter Care Teams Production Support Developer Relationship Specialty Start Date End Date Name, MD Cedric [address] [place] [phone] PCP - General Internal Medicine 02/02/22 documented as of this encounter
== END 2025-07-04 10:11 | disposition home or self-care (01) ==
LOC: HO.HWS 09:49
PROVIDERS: PCP Internal Medicine Geriatric Medicine; Visit Provider Obstetrics & Gynecology
DX: L90.0 Lichen sclerosus et atrophicus (principal)
CPT/HCPCS: 99213

== ENCOUNTER → 2025-07-04 09:49 | Outpatient (BNVA) | payer OTHER, SELFPAY | PROVIDERS: PCP Internal Medicine Geriatric Medicine; Visit Provider Obstetrics & Gynecology | DX: Z71.2 Person consulting for explanation of examination or test findings (principal); L90.0 Lichen sclerosus et atrophicus | CPT/HCPCS: 99212 ==

== ENCOUNTER 2025-07-27 07:52 | Emergency (ER) | payer OTHER, SELFPAY ==
[2025-07-27 07:58] VITALS: BP 140/80; PULSE 72; RESP 18; TEMP 36.4; O2SAT 95; BMI 26.8
--- OUTSIDE RECORDS SUMMARY | 2025-07-27 08:39 | XMS_ITS | Encounter Summary ---
Author Organization [employer] Address [address] [facility] 7t [place] [address] Care Team Providers Care Mechanical Engineer Name Role Phone Name, Cedric NICK Primary Care Provider [phone] Reason for Visit * Reason Comments Med Refill Encounter Details Date Type Department Care Team ([facility] st Contact Info) Description 04/23/2025 Refill [facility] [address] [place] [phone] Name, MD Cedric [address] [place] [address] Social History Tobacco Use Types Packs/Day Years [...] Description 09/18/2025 3:00 PM EST Office Visit [facility] ADULT DENTAL [address] [place] [address] Jayro, Iza [address] [place] [address] 09/26/2025 10:30 AM EST Office Visit [facility] [address] [place] [address] Name, MD Cedric [address] [place] [phone] documented as of this encounter Visit Diagnoses Not on filedocumented in this encounter Additional Health Concerns Assessment Noted Time PHQ-9 Depression Total Score: 0 02/20/20 24 10:24 AM EDT documented as of this encounter Care Teams Mechanical Engineer Relationship Specialty Start Date End Date Name, MD Cedric [address] [place] [phone] PCP - General Family Medicine 04/06/16 documented as of this encounter
--- OUTSIDE RECORDS SUMMARY | 2025-07-27 08:39 | XMS_ITS | Encounter Summary ---
Author Organization [employer] Address [address] [place] [address] 7 [place] [address] Care Team Providers Care Attendant Coin Operated Laundry Name Role Phone Name, Cedric NICK Primary Care Provider [phone] Encounter Details Date Type Department Care Team (Latest Contact Info) Description 04/01/2022 Abstract [facility] CONVERSIONS Dental, Provider, DDS Social History [...] 09/18/2025 3:00 PM EST Office Visit [facility] ADULT DENTAL [address] [place] [address] Josh Dialaris [address] [place] [address] 09/26/2025 10:30 AM EST Office Visit [facility] MEDICINE [address] [place] [address] Cedric Liao MD [address] [place] [address] documented as of this encounter Visit Diagnoses Not on filedocumented in this encounter Care Teams Attendant Coin Operated Laundry Relationship Specialty Start Date End Date Cedric Liao MD [address] [place] [address] PCP - General Family Medicine 04/06/16 documented as of this encounter
--- OUTSIDE RECORDS SUMMARY | 2025-07-27 08:39 | XMS_ITS | Encounter Summary ---
Author Organization [employer] Address [address] [facility] 7 [place] [address] Care Team Providers Care Forming Machine Adjuster Name Role Phone Name, Cedric NICK Primary Care Provider [phone] Encounter Details Date Type Department Care Team (Late st Contact Info) Description 04/25/2023 Abstract [facility] MEDICINE [address] [place] [address] Name, MD Cedric [address] [place] [address] Social History Tobacco Use Types Packs/Day Years [...] 3:00 PM EST Office Visit [facility] ADULT DENTAL [address] [place] [address] Iza Dial [address] [place] [address] 09/26/2025 10:30 AM EST Office Visit [facility] MEDICINE [address] [place], [place] [phone] Name, MD Cedric [address] [place] [address] documented as of this encounter Procedures Procedure [...] EDT Recommended 5 year follow up ( [facility]) us Historical Provider HEALTH MAINTENANCE Final Result documented in this encounter Visit Diagnoses Not on filedocumented in this encounter Additional Health Concerns Assessment Noted Time PHQ-9 Depression Total Score: 0 11/19/19 23 1:50 PM EST documented as of this encounter Care Teams Forming Machine Adjuster Relationship Specialty Start Date End Date Name, [place] [address] PCP - General Family Medicine 04/06/16 documented as of this encounter
--- OUTSIDE RECORDS SUMMARY | 2025-07-27 08:39 | XMS_ITS | Clinical Summary ---
Author Organization [employer] Address [address] [facility] [address] [place] [address] Care Team Providers Care Whitewasher Name Role Phone Name, Cedric NICK Primary Care Provider [phone] Allergies Active Allergy Reactions Criticality Noted Date [...] IN WATER AND TAKE ONCE DIRECTED BY [facility]PT 023 Active Acetaminophen Extra Strength [...] tip and replace cap. 16 g 2 025 2025 Active lisinopril 10 MG tablet Take 1 tablet (10 mg) by mouth Once per day. Active empagliflozin (Jardiance) 10 MG Take 1 tablet (10 mg) by mouth Once per day. 30 tablet 11 025 2025 Active cetirizine (ZyrTEC) 10 MG tablet TAKE 1 TABLET BY MOUTH EVERY DAY 30 tablet 2 Active cetirizine (ZyrTEC) 10 MG tablet Take 1 tablet (10 mg) by mouth Once per day. 30 tablet 2 2024 Discontinued Diclofenac Sodium 1 % gelIndications:Ac roshan pain of both shoulders Apply 1 Application topically if needed in the morning, at noon, in the evening, and at bedtime (pain) for up to 7 days. 100 g 025 2024 cyclobenzaprine (Flexeril) 5 MG tabletIndications :Acute pain of both shoulders Take 1 tablet (5 mg) by mouth if needed in the morning, at noon, and at bedtime for muscle spasms for up to [address] or operate heavy machinery while on this medication 20 tablet 025 2024 Active Problems Problem Noted Date Diagnosed Date Pigmented villonodular synovitis of right knee 0 06/27/2025 Acute pain of right knee 02/05/2025 Assessment & Plan (02/05/2025 1:05 PM EDT): Patient of Dr. Liao here with c/o new onet of right knee pain. Seen at [facility] 02/02/2025. Work up included a RLE [...] Encounters Date Type Department Care Team Description 07/19/2025 9:40 AM EDT Office Visit [facility] [address] [place] [phone] David Hebert MD Acute pain of both shoulders (Primary Dx) 07/19/2025 Travel 07/09/2025 Refill [facility] [address] [place] [address] Cedric Liao MD 06/27/2025 10:30 AM EDT Office Visit [facility] [address] [place] [address] Cedric Liao MD Proteinuria, unspecified type (Primary Dx); Pigmented villonodular synovitis of right knee 06/27/2025 Travel 06/26/2025 Telephone [facility] [address] [place] [phone] Jen Muñoz MA Chart Prep 06/11/2025 Orders Only GENERIC EXTERNAL DATA DEPARTMENT Provider, Generic External Data 05/28/2025 Orders Only [facility] [address] [place] [phone] Cedric Liao MD from Last 3 Months Immunizations Immunization Administration [...] Sign Reading Time Taken Comments Blood Pressure 124/84 07/19/2025 9:45 AM EDT Pulse 69 07/19/2025 9:45 AM EDT Temperature 36.7 C (98 F) 07/19/2025 9:45 AM EDT Respiratory Rate 16 07/19/2025 9:45 AM EDT Oxygen Saturation 97% 07/19/2025 9:45 AM EDT Inhaled Oxygen Concentration - - Weight 65.8 kg (145 lb) 07/19/2025 9:45 AM EDT Height 154.9 cm (5' 1 ) 06/27/2025 10:09 AM EDT Body Mass Index 27.4 06/27/2025 10:09 AM EDT Plan of Treatment Upcoming Encounters Date Type Department Care Team (Late st Contact Info) Description 09/18/2025 3:00 PM EST Office Visit [facility] [address] [place] [address] Jayro, Iza [address] [place] [address] 09/26/2025 10:30 AM EST Office Visit [facility] [address] [place] [address] Name, MD Cedric [address] [place] [address] Health Maintenance Due Date Last Done Comments CT Colonography 1968 FIT DNA/Cologuard 1968 FIT 1968 FOBT 1968 Sigmoidoscopy 1968 Disability Screening 1968 Pneumococcal Vaccine: 50+ Years (1 of 1 - PCV) 2018 Cervical Cancer Screening 12/24/2024 HPV/Cotest 12/24/2024 12/24/2019 Pap Smear 12/24/2024 12/24/2019 Dental Oral Exam 01/31/2025 08/02/2024, , 12/18/2019, Additional history exists Dental Prophylaxis 01/31/2025 08/02/2024, 04/01/2022 SDOH Screening 02/19/2025 02/20/2024 Dental X-Ray: Full Mouth 04/02/2025 04/01/2022, 11/0 11/2015 COVID-19 Vaccine ( season) 2025 04/21/2021, 03/24/2021 Influenza Vaccine (#1) 2025 , 09/16/2020, 08/09/2018, Additional history exists Dental X-Ray: Bitewings 08/03/2025 08/02/20 24, 04/01/2022, 12/18/2019, Additional history exists Alcohol/Substance Use Screening 06/27/2026 06/27/2025 Depression Screening 06/27/2026 06/27/2025, 06/27/20 25 Tobacco Screening 07/19/2026 07/19/2025 Mammogram 05/28/2027 05/28/2025, 05/14, 05/23/2023, Additional history [...] TOMOSYNTHESIS BILATERAL Routine 05/28/2025 10:12 AM EDT HEPATITIS C AB W/REFL TO HCV [...] EDT) Sodium 139 135 - 145 mmol/L [facility] Potassium 4.2 3.3 - 5.1 mmol/L [facility] Chloride 103 96 - 108 mmol/L [facility] Carbon Dioxide 28 22 - 29 mmol/L [facility] Anion Gap 12 12 - 20 [facility] Urea Nitrogen (BUN) 13 9 - 16 mg/dL [facility] Creatinine, Serum 0.71 0.5 - 1.4 mg/dL [facility] Estimated Glomerular Filt Rate >60 [facility] Comment:Chronic Kidney Disea se: Estimated GFR < 60 mL/min/[id number] Kidney Disease: Estimated GFR < 15 mL/min/1.73m2 Glucose 81 60 - 115 mg/dL [facility] Calcium 9.4 8.4 - 10.2 mg/dL [facility] Blood Venous blood specimen / Unknown 06/27/2025 10:40 AM EDT 06/27/2025 11:20 AM EDT us Cedric Liao MD LAB BLOOD ORDERABLES Final Resul t Performing Organization Address [facility] de Phone Number [facility] [address] [place] [phone] * (ABNORMAL) Albumin, Random Urine W/Creatinine (06/27/2025 12:00 AM EDT) Creatinine, Urine 48.89 mg/dL [facility] Microalbumin Urine 442.0 mg/L [facility] Microalbum Creatinine Ratio Ur 904.0(H) <30 ug/mg cr [facility] Comment:Albumin/Creatinine R atio Reference Ranges: Normal: < 30 ug/mg creatinine Microalbuminuria: 30 - 300 ug/mg creatinineClinical Albuminuria: > 300 ug/mg creatinine Urine (Urine, Random) 06/27/2025 06/27/2025 us Cedric Liao MD LAB URINE ORDERABLES Final Resul t Performing Organization Address [facility] Co de Phone Number [facility] [address] [place] [address] [phone] * Hematoxylin and Eosin Stain (06/11/2025 11:24 AM EDT) 06/11/2025 11:2 4 AM EDT 06/11/2025 2:20 PM EDT Narrative [facility] - 06/12/2025 12:27 PM EDT ----- ------- Name: Maryann Tan Age/Sex: 55/F : 1970 Unit#: [id number] Attend Dr: Delbert Simons MD Re06/11/25 Status: DEP REF Location: [facility] Disch: ----- ------- SPEC : [id number] RECD: 06/11/25 STATUS: ELIZABETH LUND NUM: [id number] EILEEN: 06/11/254 [facility] DR: Delbert Simons MD ENTERED: 06/11/25 [...] microscopic examination, 1 piece in cassette B. ([facility]) Special studies ordered and performed: PAS-F on A1 and B1. IHC S/NG Disclaimer NOTE: Unless otherwise stated, all tissue is formalin-fixed and paraffin-embedded. Some or all of the immunohistochemical tests reported herein may have been developed and their performance characteristics determined by [facility]. They have not been cleared [...] Maryann Tan Age/Sex: 55/F : 1970 Unit#: [id number] Attend Dr: Delbert Simons MD Re06/11/25 Status: DEP REF Location: [facility] Disch: ----- ------- SPEC : [id number] RECD: 06/11/25 STATUS: ELIZABETH LUND NUM: [id number] EILEEN: 06/11/251124 [facility] DR: Delbert Simons MD ENTERED: 06/11/25 SP TYPE: Surgical OTHR DR: Cedric Liao MD ORDERED: HE Stain/6, Gross Micro L4/2, Specials Gr. 1/2, PASF/2 Copies To: Name,Cedric NICK [address] [facility] [place] [address] Delbert Simons MD [facility] Women[facility] Services [address] [place] [address] ----- ------- Signed (signature on file) Nithya Asha 06/12/25 1227 ----- ------- END OF REPORT us Generic External Data Provider LAB BLOOD ORDERAB LES Final Result Performing Organization Address City/State/[facility] Co de Phone Number [facility] [address] [place] [address] [phone] * BI Mammogram Screening Tomosynthesis Bilateral (05/28/2025 10:12 AM EDT) Anatomical Region Laterality Modality Breast Bilateral Mammography 05/28/2025 10:1 2 AM EDT Narrative 06/10/2025 9:26 AM EDT [address] [place] [address] Mammography Report Signed Patient: Maryann Tan MR #: [id number] : 1970 Acct:[id number] Age/Sex: 55 / F ADM Date: 05/28/25 Loc: HO.MAMMO Attending Dr: Cedric Liao MD Ordering Physician: Cedric Liao MD Results: 1Negative Date of Service: 05/28/25 Follow Up: 1 Year From Orig inal Mammogram Procedure(s): MM tomosynthesis screening BI Accession Number(s): [id number] cc: Cedric Liao MD EXAMINATION: MM SCREENING [...] 06/10/25 0923 DD/ 1012 TD/TT: 05/28/25 1025 Tipple Mechanic: Procedure Note Donotuseinterpreter, Image - 06/10/2025 [place] [facility] [address] [place], [place] [address] Mammography Report Signed Patient: Maryann Tan AMR #: [id number] : 1970Acct:[id number] Age/Sex: 55 / FADM Date: 05/28/25 Loc: MAMMO Attending Dr: Cedric Liao MD Ordering Physician: Cedric Liaoesults: 1Negative Date of Service: 05/28/25Follow Up: 1 Year From [facility] ina Mammogram Procedure(s): MM tomosynthesis screening BI Accession Number(s): [id number] cc: Cedric Liao MD EXAMINATION: MM SCREENING [...] 06/10/25 0923 DD/ 1012 TD/TT: 05/28/25 1025 Tipple Mechanic: Cedric Liao MD IMG BI PROCEDURES Final Result * Hepatitis C Antibody with Reflex to HCV, RNA, Quantitative, Real-Time PCR (10/03/2024 11:20 AM EST) Hepatitis C Antibody Nonreactive Nonreactive [facility] Comment:Antibodies to HCV no t detected; does not exclude early acuteHCV infection. Blood Venous blood specimen / Unknown 10/03/2024 11:20 AM EST 10/03/2024 1:16 PM EST us Cedric Liao MD LAB BLOOD ORDERABLES Final Resul t [facility] [address] [place] [phone] * HIV-1/2 Antigen and Antibodies, Fourth [...] below the limit ofdetection of this assay.The [employer] HIV Ag/Ab Combo assay result andsupplemental assay results should be interpreted inconjunction with the patient's clinical presentation,history and other laboratory results. If the results areinconsistent with clinical evidence, additional testing issuggested to confirm the result. Blood Venous blood specimen / Unknown 10/03/2024 11:20 AM EST 10/03/2024 1:16 PM EST us Cedric Liao MD LAB BLOOD ORDERABLES Final Resul t [facility] [address] [place] [phone] * (ABNORMAL) Colonoscopy (07/21/2023) Pathologist [facility] Colonoscopy Abnormal(A ) Normal us Cedric Liao MD HEALTH MAINTENANCE Final Result * Pap Smear (12/24/2019) Pathologist [facility] Pap Negative for intraephithelial lesion or malignancy Negative for intraephithelial lesion or malignancy, Other HPV Undetected 12/24/2019 [place] Provider HEALTH MAINTENANCE Final Result from Last 3 Months or Most Recently Relevant to Health Maintenance Insurance * Guarantor: Ruelas Ruelas, Crecencia A Account Type Relation to Patient Date of Phone Billing Address Personal/Family Self [address] [place] [address] [facility] [address] DENTAL - HSN PARTIAL (MEDICAID) * Guarantor: Maryann Tan A Account Type Relation to Patient Date of Phone Billing Address Personal/Family Self [address] [place] [address] * Guarantor: Maryann Tan A Account Type Relation to Patient Date of Phone Billing Address Personal/Family Self [address] [place] [address] [place] [address] Care Teams Whitewasher Relationship Specialty Start Date End Date Name, MD Cedric [address] [facility] [place] [address] PCP - General Family Medicine 04/06/16
--- OUTSIDE RECORDS SUMMARY | 2025-07-27 08:39 | XMS_ITS | Encounter Summary ---
Author Organization [employer] Address [address] [place] [address] Care Team Providers Care Phlebotomy Manager Name Role Phone Name, Cedric NICK Primary Care Provider [phone] Encounter Details Date Type Department Care Team ([facility] Contact Info) Description 09/23/2023 Orders Only [facility] [address] [place], [place] [phone] Name, MD Cedric [address] [place] [address] Social History Tobacco Use Types Packs/Day Years [...] 3:00 PM EST Office Visit [facility] [address] [place] [address] Jayro, Iza [address] [place] [address] 09/26/2025 10:30 AM EST Office Visit [facility] [address] [place] [address] Name, MD Cedric [address] [place] [address] documented as of this encounter Visit Diagnoses Not on filedocumented in this encounter Additional Health Concerns Assessment Noted Time PHQ-9 Depression Total Score: 0 11/19/19 23 1:50 PM EST documented as of this encounter Care Teams Phlebotomy Manager Relationship Specialty Start Date End Date Name, MD Cedric [address] [place] [phone] PCP - General Family Medicine 04/06/16 documented as of this encounter
--- OUTSIDE RECORDS SUMMARY | 2025-07-27 08:39 | XMS_ITS | Encounter Summary ---
Author Organization [facility] Address [address] [facility] [address] [place] [address] Phone Care Team Providers Care Coke Still Cleaner Name Role Phone Name, Cedric NICK Primary Care Provider [phone] Encounter Details Date Type Department Care Team (Late Contact Info) Description 02/02/2022 Telephone [facility] [address] [facility] [address] [place] [address] Jasiel Oliver, [address] [address] Social History Tobacco Use Types Packs/Day Years [...] send to Dr Liao. Thank you FAX# [phone] documented in this encounter Plan of Treatment Upcoming Encounters Date Type Department Care Team (Late Contact Info) Description 09/23/2025 10:00 AM EST Office Visit [facility] [address] [phone] Buddy Ortiz MD [address] [phone] documented as of this encounter Visit Diagnoses Not on filedocumented in this encounter Care Teams Coke Still Cleaner Relationship Specialty Start Date End Date Name, MD Cedric [address] [place] [phone] PCP - General Internal Medicine 02/02/22 documented as of this encounter
--- OUTSIDE RECORDS SUMMARY | 2025-07-27 08:39 | XMS_ITS | Clinical Summary ---
Author Organization [facility] Address [address] [facility] [address] [place] [address] Phone Care Team Providers Care Fundraising Sale Representative Name Role Phone Name, Cedric NICK Primary Care Provider [phone] Allergies Active Allergy Reactions Criticality Noted Date [...] each day 09/30/2021 Active Deep Sea Nasal [place] 0.65 % nasal spray 11/04/2021 Active polyethylene [...] (one) time each day 90 tablet 3 04/24/2025 6 Active Active Problems Problem Noted Date Diagnosed [...] [facility] [address] [phone] Buddy Ortiz MD [address] [phone] Health Maintenance Due Date Last Done Comments Breast Cancer Screening 1970 Pneumococcal Vaccine: 50+ Ye ars (1 of 2 - PCV) 1987 Colorectal Cancer Screening: Annual FOBT 2017 Colorectal Cancer Screening: Colonoscopy 2017 Colorectal Cancer Screening: Sigmoidoscopy 2017 Hepatitis B Vaccine (3 of 3 - 19+ 3-dose series) 07/27/2023 03/29/2023, 01/24/2023 Influenza Vaccine (#1) 2025 , 09/16/2020, 08/09/2018, Additional history exists Insurance [employer] ([id number]) [facility] ([id number]) Care Teams Fundraising Sale Representative Relationship Specialty Start Date End Date Name, MD Cedric [address] [place] [phone] PCP - General Internal Medicine 02/02/22
--- NOTE | 2025-07-27 09:03 | ED_ITS ---
HPI - Ear Problem General Chief complaint: Ear Problems Stated complaint: r side jaw and ear pain Time Seen by Provider: 07/27/25 09:03 Source: patient and hourly sign language interpreter ([place]) Mode of arrival: ambulatory Limitations: language barrier ([place]) History of Present Illness ED Provider: JOAN BELCHER PA-C HPI Narrative: 55 year old Upper Sorbian speaking female presents to the ED today for concerns of right ear discomfort x6 days. States she was evaluated at [facility] for this earlier in the week, was told my ear is dry , and discharge home. Reports muffled hearing from right ear. Admits to of cerumen impaction requiring irrigation as a child. Denies fever, drainage from the ear, hearing loss. Denies blunt trauma/ injury. No recent URI. Related Data Home Medications ?Medication ?Instructions ?Recorded ?Confirmed lisinopril 10 mg tablet 10 mg PO DAILY 09/14/2204/15 levothyroxine 75 mcg tablet 1 tab PO DAILY 12/23/22 empagliflozin 10 mg tablet 10 mg PO DAILY 03/13/25 (Jardiance) Previous Rx's ?Medication ?Instructions ?Recorded terconazole 0.8 % vaginal cream 1 appful vaginal BEDTI ME 3 days 11/21/23 #20 grams hydrocortisone 2.5 % topical cream 1 appl MD BID-QID P RN hemorrhoids 12/06/23 with perineal applicator #30 grams (Proctosol HC) hydrocortisone acetate 25 mg 25 mg MD BID #24 ea 12/06 rectal suppository (Anucort-HC) docusate sodium 100 mg capsule 200 mg (2 x 100 mg) PO BEDTIME 08/10/24 #180 caps polyethylene glycol 3350 17 17 g PO DAILY #510 grams 0 08/10/24 gram/dose oral powder (Miralax) acetaminophen 500 mg tablet 500 mg PO Q6H PRN fever or pain 02/02/25 #30 tabs bisacodyl 5 mg tablet,delayed 10 mg (2 x 5 mg) PO DHIRAJ Y #180 tabs 03/13/25 release benzonatate 100 mg capsule 100 mg PO BID PRN cough #10 caps 05/17/25 clobetasol 0.05 % topical cream 1 appl topical BID 2 w eeks #45 07/04/25 grams carbamide peroxide 6.5 % ear drops 5 drp otic (ear) ri ght DAILY 4 07/27/25 (Debrox) days #15 mL Allergies Allergy/AdvReac Type Severity Reaction Status Date / Time ceftriaxone Allergy Severe Anaphylaxis Verified 07/27/25 08:02 Iodinated Contrast Media (IV Allergy Severe Anaphylaxis Verified 07/27/25 08:02 Contrast Dye) magnesium hydroxide (From Allergy Intermediate Rash Verified 07/27/25 08:02 Milk of Magnesia) Review of Systems Review of Systems: Yes all other systems are reviewed and are negative [facility] Past Medical History Attestation statement: The following information was validated with the patient. Source: old records reviewed and nursing notes reviewed Medical History Hemorrhoids with complication Endometrial hyperplasia Heartburn GERD (gastroesophageal reflux disease) Skin lesion of back Kidney stone Vitamin D deficiency Hypothyroidism Surgical History Hx of ventral hernia repair (05/31/24) Hx of unilateral oophorectomy History of surgery Tubal ligation status Hx of colonoscopy Hx of esophagogastroduodenoscopy Family History Family History Father Hypertension Respiratory failure Mother Pancreatic cancer Social History Social History Household Members: Spouse Housing: Apartment Are you a primary resident care assistant to a significant other at home: No Do you presently have visiting nurse or other home services: No Alcohol intake: never Patient Tobacco Use Status: Never used Tobacco Second Hand Smoke Exposure: No Advance Directives: No Advance Directives Information Provided: No Do you have a plan to hurt others: No Plan service: No Current occupational status: employed Current occupation: [employer] Sexual orientation: Straight/Heterosexual Gender identity: Female Physical Exam Vital Signs: Vital Signs: Last Vital Signs Temp 97.7 F 07/27/25 09:53 Pulse 61 07/27/25 09:53 Resp 16 07/27/25 09:53 BP 118/73 07/27/25 09:53 Pulse Ox 97 07/27/25 09:53 O2 Del Method Room Air 07/27/25 09:53 BMI result Body Mass Index 26.8 vital signs stable General: Well appearing, in no acute distress. Skin: Warm, dry, intact. No rashes or lesions. Head: Normocephalic, atraumatic. EENT: Conjunctiva clear. Sclera is anicteric. PERRLA. EOM intact. Moist mucous membranes.? + No pain on manipulation of left pinna or tragus. No protrusion of the auricle. No mastoid tenderness, fluctuance, warmth. Left EAC without erythema, edema or discharge. TM intact without erythema, effusion, or bulging. + No pain on manipulation of right pinna or tragus. No protrusion of the auricle. No mastoid tenderness, fluctuance, warmth. Right EAC with impacted cerumen, unable to fully visualize TM. EAC without erythema, edema or noted discharge. TM intact without erythema, effusion, or bulging. Cardiac: Chest wall symmetric. RRR Lungs: Normal respiratory effort without accessory muscle use Neuro: AOx3. Normal speech. Ambulating with steady gait Course Course Course Narrative: Attempted cerumen removal w/ currette. Able to partially remove cerumen and visualize a portion of the TM which does not appear to be acutely infected. Patient unable to tolerate exam. Will refer her to PCP for further cerumen removal. rx for debrox provided. Patient has remained stable throughout ED visit today. Discussed worrisome signs and symptoms and when to return to the ED. All questions answered at this time. Patient is agreeable with disposition and stable for discharge. Medications Administered Discontinued Medications Generic Name Dose Route Start Last Admin Trade Name Rcq PRN Reason Stop Dose Admin Acetaminophen 650 mg 07/27/25 09:49 07/27/25 10:00 Acetaminophen 325 Mg Tablet PO 07/27/25 09:50 650 mg ONCE ONE Administration Procedures Ear Wax Removal Right Ear: Results: Re-examined: some cerumen remains and removal reattempted TM Examination: TM(s) intact, normal appearance (partially visualized) Ear Canal Exam: atraumatic Patient Tolerated Procedure: well Complications: no problems Technique: ear canal curetted Medical Decision Making Medical Decision Making MDM Narrative: 55 year old Upper Sorbian speaking female presents to the ED today for concerns of right ear discomfort x6 days. vital signs stable. on exam, No pain on manipulation of right pinna or tragus. No protrusion of the auricle. No mastoid tenderness, fluctuance, warmth. Right EAC with impacted cerumen, unable to fully visualize TM. EAC without erythema, edema or noted discharge. TM intact without erythema, effusion, or bulging. Differential diagnosis includes cerumen impaction, otitis media, otitis externa. Unlikely malignant otitis externa, mastoiditis. Plan for irrigation and disposition. Differential Diagnosis Differential Diagnoses: The differential diagnosis associated with the presentation includes as above. Admission/Observation not indicated Prescription Management I considered prescription management with: Other (debrox) Social Determinants Patient?s care significantly limited by Social Determinants of Health including: Other Social Determinant of Health Critical Care Time Critical Care Time Critical Care Time: No Discharge Plan Discharge Clinical Impression: Cerumen impaction Patient Disposition: Home, Self-Care Instructions: Carbamide Peroxide (Into the ear) ([employer], Debrox,... Additional Instructions: You were evaluated in the ED today for right ear discomfort. You are noted to have wax impacted in your right ear canal. We attempted to remove this today however you were unable to tolerate the entire procedure. I can partially visualize your ear drum and it does not appear to be infected. The rest of your exam is reassuring. I am sending debrox ear drops to the pharmacy. see instructions. You need to follow up with either your PCP or ENT specialist. Return with any new or worsening symptoms. In the case of an emergency call 911. Prescriptions: New Debrox 6.5 % drops 5 drp otic (ear) right DAILY 4 Days Qty: 15 0RF No Action levothyroxine 75 mcg tablet 1 tab PO DAILY acetaminophen 500 mg tablet 500 mg PO Q6H PRN (Reason: fever or pain) Qty: 30 0RF benzonatate 100 mg capsule 100 mg PO BID PRN (Reason: cough) Qty: 10 0RF lisinopril 10 mg tablet 10 mg PO DAILY hydrocortisone [Proctosol HC] 2.5 % cream with perineal applicator 1 appl MD BID-QID PRN (Reason: hemorrhoids) Qty: 30 2RF hydrocortisone acetate [Anucort-HC] 25 mg suppository 25 mg MD BID Qty: 24 2RF terconazole 0.8 % cream 1 appful vaginal BEDTIME 3 Days Qty: 20 0RF clobetasol 0.05 % cream 1 appl topical BID 14 Days Qty: 45 1RF Rx Instructions: Then maintenance therapy for 2-3 times per week docusate sodium 100 mg capsule 200 mg PO BEDTIME Qty: 180 3RF polyethylene glycol 3350 [Miralax] 17 gram/dose powder 17 g PO DAILY Qty: 510 2RF Jardiance 10 mg tablet 10 mg PO DAILY bisacodyl 5 mg tablet,delayed release (DR/EC) 10 mg PO DAILY Qty: 180 3RF Referrals: [facility] [Provider Group, Ear, Nose, Throat] Name,MD Cedric [Primary Care Provider, Internal Medicine] Discharge Date/Time: 07/27/25 10:06 Print Language: Other
[2025-07-27 09:53] VITALS: BP 118/73; PULSE 61; RESP 16; TEMP 36.5; O2SAT 97
== END 2025-07-27 10:06 | disposition home or self-care (01) ==
PROVIDERS: Emergency Provider Emergency Medicine; PCP Internal Medicine Geriatric Medicine
DX: H61.21 Impacted cerumen, right ear (principal); H92.01 Otalgia, right ear
CPT/HCPCS: 99283

== ENCOUNTER 2025-08-29 10:43 | Emergency (ER) | payer OTHER, SELFPAY ==
--- NOTE | ~2025-08-29 | CT_ITS ---
EXAMINATION: CT ABDOMEN AND PELVIS WITHOUT CONTRAST CLINICAL INFORMATION: Lower abdominal pain. COMPARISON: March 29, 2024. TECHNIQUE: Multidetector volumetric imaging was performed from the superior aspect of the liver through the pubic symphysis. Sagittal and coronal reformatted images were obtained on the technologist's workstation. This CT examination was performed using dose optimization techniques as appropriate, variously including the following: *Automated exposure control *Adjustment of mA and/or kV according to patient size (this includes techniques or standardized protocols for targeted exams where dose is matched to indication/reason for exam; i.e. extremities or head) *Use of iterative reconstruction technique DLP: 420 mGy centimeter. FINDINGS: Limited evaluation of the intra-abdominal solid organs and vascular structures due to lack of IV contrast. LUNG BASES: Pulmonary patchy groundglass. LIVER, GALLBLADDER, AND BILIARY TREE: Liver measures 17 cm. Decreased attenuation. No intrahepatic biliary ductal dilatation. Gallbladder is nondistended. No pericholecystic fluid collection or gallbladder wall thickening. No extrahepatic biliary ductal dilatation. PANCREAS: No peripancreatic fluid collection. No main pancreatic ductal dilatation. SPLEEN: 11 cm. ADRENAL GLANDS: No nodular lesions. KIDNEYS AND URETERS: No hydronephrosis or nephrolithiasis. Extrarenal pelvis, right kidney. BLADDER: Fluid-filled nearly collapsed. GASTROINTESTINAL TRACT: Numerous diverticula throughout the large intestine. There is a focal segmental wall thickening with associated slightly hyperdense diverticula and pericolonic edema pattern involving the distal descending/proximal sigmoid colon. No fluid collection. No pneumoperitoneum. No pneumatosis intestinalis. Sutures at the rectosigmoid colon junction without gross abnormality. Appendix is normal and retrocecal. No ascites. No pneumoperitoneum. ABDOMINAL WALL: Breast is abdominal rectus muscles in the periumbilical region with small fat-containing umbilical hernia. LYMPH NODES: Prominent, mesenteric and retroperitoneum. VASCULAR: No aneurysm, abdominal aorta. No gross calcified plaques. PELVIC VISCERA: Inadequate evaluation. Uterus is seen indifferent position. OSSEOUS STRUCTURES: A shaped curvature of the lower lumbar spine with the syndesmophyte formation and marginal osteophyte formation and decreased intervertebral disc height at L4-5. Grade 1 in retrolisthesis L4-5. Sclerosis and the sacroiliac joints. CT/CT abdomen pelvis wo IV con IMPRESSION: Acute nonperforated diverticulitis, distal descending colon and proximal sigmoid colon. Hepatomegaly and steatosis. Small fat-containing umbilical hernia and diastases abdominal rectus muscle. Scoliosis and spondylosis resulting in grade 1 retrolisthesis L4-5. Fleischner guidelines were followed. Electronically signed by: Broderick Santiago MD 08/29/2025 12:07 PM EDT
[2025-08-29 10:59] VITALS: BP 129/72; PULSE 109; RESP 16; TEMP 36.5; O2SAT 97; BMI 25.3
--- NOTE | 2025-08-29 11:07 | ED.GENADULT ---
HPI - General Adult General Chief complaint: Abdominal Pain Stated complaint: Fever, L side pain Time Seen by Provider: 08/29/25 11:29 Source: patient, RN notes reviewed and old records reviewed Mode of arrival: ambulatory Limitations: no limitations History of Present Illness ED Provider: Ra Alvarez PA-C HPI narrative: 55-year-old female with a history of recurrent diverticulitis s/p sigmoid resection 07/2023, history of UTIs, and bilateral hydronephrosis with hx right ureteral stricture (follows w/ Urology), proteinuria (follows w/ nephrology) constipation, kidney stones who presents to the ER for evaluation of 3 days of left sided flank and LLQ pains. She reports initially the pain started in the right side of her abdomen and has now radiates to the left where it remains. She reports she feels a fullness in the left side of her abdomen, pain worsens with ambulation and palpation. She reports it is located in her left flank, left middle back, left lower quadrant. She reports associated nausea, nonbloody diarrhea, increased urinary frequency and urgency. She denies hematuria or dysuria. She is concerned about a urinary tract infection, kidney stone and diverticulitis, as she has a history of all 3 of these things. She reports taking Tylenol at 02:00 with minimal relief. MD complaint: Left-sided abdominal pain and flank pain Onset (ago): day(s) (3) Location: abdomen Radiation: back Severity scale (1-10): 8 Quality: stabbing and aching Pain Consistency: intermittent Relieving factors: rest Exacerbating factors: movement Associated symptoms: fever/chills, malaise, nausea/vomiting and other (Diarrhea, increased urinary frequency) Related Data Home Medications ?Medication ?Instructions ?Recorded ?Confirmed lisinopril 10 mg tablet 10 mg PO DAILY 09/14/22 05/07/25 levothyroxine 75 mcg tablet 1 tab PO DAILY 12/23/22 05/07/25 empagliflozin 10 mg tablet 10 mg PO DAILY 03/13/25 05/07/25 (Jardiance) Previous Rx's ?Medication ?Instructions ?Recorded terconazole 0.8 % vaginal cream 1 appful vaginal BEDTIME 3 days 11/21/23 #20 grams hydrocortisone 2.5 % topical cream 1 appl FL BID-QID PRN hemorrhoids 12/06/23 with perineal applicator #30 grams (Proctosol HC) hydrocortisone acetate 25 mg 25 mg FL BID #24 ea 12/06/23 rectal suppository (Anucort-HC) docusate sodium 100 mg capsule 200 mg (2 x 100 mg) PO BEDTIME 08/10/24 #180 caps polyethylene glycol 3350 17 17 g PO DAILY #510 grams 08/10/24 gram/dose oral powder (Miralax) acetaminophen 500 mg tablet 500 mg PO Q6H PRN fever or pain 02/02/25 #30 tabs bisacodyl 5 mg tablet,delayed 10 mg (2 x 5 mg) PO DAILY #180 tabs 03/13/25 release benzonatate 100 mg capsule 100 mg PO BID PRN cough #10 caps 05/17/25 clobetasol 0.05 % topical cream 1 appl topical BID 2 weeks #45 07/04/25 grams carbamide peroxide 6.5 % ear drops 5 drp otic (ear) right DAILY 4 07/27/25 (Debrox) days #15 mL levofloxacin 500 mg tablet 500 mg PO DAILY #6 tabs 08/29/25 metronidazole 500 mg tablet 500 mg PO BID 7 days #14 tabs 08/29/25 naproxen 500 mg tablet 500 mg PO BID PRN pain #14 tabs 08/29/25 Allergies Allergy/AdvReac Type Severity Reaction Status Date / Time ceftriaxone Allergy Severe Anaphylaxis Verified 08/29/25 11:06 Iodinated Contrast Media (IV Allergy Severe Anaphylaxis Verified 08/29/25 11:06 Contrast Dye) magnesium hydroxide (From Allergy Intermediate Rash Verified 08/29/25 11:06 Milk of Magnesia) Review of Systems Review of Systems: Yes all other systems are reviewed and are negative PMF Past Medical History Medical History Hemorrhoids with complication Endometrial hyperplasia Heartburn GERD (gastroesophageal reflux disease) Skin lesion of back Kidney stone Vitamin D deficiency Hypothyroidism Surgical History Hx of ventral hernia repair (05/31/24) Hx of unilateral oophorectomy History of surgery Tubal ligation status Hx of colonoscopy Hx of esophagogastroduodenoscopy Family History Family History Father Hypertension Respiratory failure Mother Pancreatic cancer Social History Social History Household Members: Spouse Housing: Apartment Are you a primary critical care clinical nurse specialist to a significant other at home: No Do you presently have visiting nurse or other home services: No Alcohol intake: never Patient Tobacco Use Status: Never used Tobacco Second Hand Smoke Exposure: No Advance Directives: No Advance Directives Information Provided: Yes Patient : No service: No Current occupational status: employed Current occupation: [employer] program Sexual orientation: Straight/Heterosexual Gender identity: Female Physical Exam ED Exam Exam: Appearance: Alert. Oriented X3. Appears uncomfortable. Head: normocephalic, atraumatic. Eyes: Pupils equal, round and reactive to light. ENT: Pharynx normal. No tonsillar swelling or exudate. Neck: Normal inspection. Neck supple. CVS: Normal heart rate and rhythm. Pulses normal. Respiratory: No respiratory distress. Breath sounds normal. Abdomen: Well-healed longitudinal surgical scar of the lower abdomen. Soft with tenderness in the left lower quadrant, left middle abdomen. Left-sided CVA tenderness is present. Normal active +BS x4 Skin: Skin warm and dry. Normal skin color. Normal skin turgor. No rashes. Extremities: No lower extremity edema. No joint swelling. Neuro/psych: Oriented X 3. No motor deficit. No sensory deficit. CN II-XII intact. Normal speech and cognition. Vital Signs: Vital Signs - 24 hr 08/29/25 10:59 08/29/25 11:29 08/29/25 11:54 Temperature 97.7 F 97.7 F Pulse Rate 109 H 96 Respiratory Rate 16 16 Blood Pressure 129/72 109/68 118/74 Pulse Oximetry 97 Oxygen Delivery Method Room Air 08/29/25 12:09 08/29/25 14:31 08/29/25 15:12 Temperature 97.7 F Pulse Rate 96 91 91 Respiratory Rate 16 16 Blood Pressure 121/73 112/69 112/69 Pulse Oximetry 98 97 97 Oxygen Delivery Method Room Air Room Air Room Air BMI result Body Mass Index 25.3 Course Course Course Narrative: RME; 55 year female history of large bowel, kidney stones presents to ED for lower abdominal pain radiating from right to left to back and down leg. Patient states febrile fever at home with some nausea. Patient has slight tachycardic due to the pain. Patient states anaphylaxis and allergy reaction to CAT scan. Labs dry CT UA ordered Medications Administered Discontinued Medications Generic Name Dose Route Start Last Admin Trade Name Clayton PRN Reason Stop Dose Admin Acetaminophen 975 mg 08/29/25 14:16 08/29/25 14:43 Acetaminophen 325 Mg Tablet PO 08/29/25 14:17 975 mg ONCE ONE Administration Sodium Chloride 1,000 mls @ 999 mls/hr 08/29/25 11:45 08/29/25 12:57 Ns IVCONT 08/29/25 12:45 Infused .Q1H1M NORMA Infusion Levofloxacin 750 mg in 150 mls @ 100 mls/hr 08/29/25 11:41 08/29/25 13:33 Levaquin IV 08/29/25 13:10 Infused ONCE ONE Infusion Metronidazole 500 mg in 100 mls @ 100 mls/hr 08/29/25 12:11 08/29/25 14:41 Flagyl IV 08/29/25 13:10 Infused ONCE ONE Infusion Ketorolac Tromethamine 15 mg 08/29/25 11:54 08/29/25 12:03 Ketorolac Tromethamine 15 Mg/Ml Vial IVPUSH 08/29/25 11:55 15 mg ONCE ONE Administration Medical Decision Making Medical Decision Making [facility] Narrative: 55-year-old female with a history of diverticulitis who has had sigmoid resection here in 2022, history of UTI, kidney stones, hydronephrosis who is presenting to the ER for evaluation of left-sided abdominal pain and left leg pain for the last 3 days. She has had associated increased urinary frequency and nonbloody diarrhea. She appears uncomfortable and has tenderness on examination. She is afebrile, not tachycardic. Low suspicion for sepsis at this time. Lab workup shows mild leukocytosis 11.9, normal renal function. Her urinalysis is consistent with infection. IV was established and she was given IV Levaquin, she is allergic to cephalosporins. CT scan came back with diverticulitis. There is no perforation or abscess. She was given IV Toradol with improvement in her pain. She is tolerating p.o. liquids. A terra cotta roofer helper was used to discuss the findings of UTI colitis. We discussed inpatient versus outpatient treatment. She is in agreement that oral antibiotics, liquid diet make the most sense at this time. Return precautions were discussed and she expressed understanding. Will prescribe Levaquin and Flagyl for her infections. Comfortable discharge home Differential Diagnosis Differential Diagnoses: The differential diagnosis associated with the presentation includes UTI, pyelonephritis, infected kidney stone, hydronephrosis, diverticulitis, colonic abscess or perforation, constipation Admission/Observation Consideration of admission/observation: Escalation of care including admission/observation considered Considered admit/observation given her history of diverticulitis requiring surgery in the past, however she is feeling better, labs and vital signs are reassuring. Lab Data MDM Lab Attestation statement: I reviewed the patient's lab results. Mild leukocytosis, normal renal function 08/29/25 11:19 08/29/25 11:19 Labs: Lab Results 08/29/25 08/29/25 08/29/25 Range/Units 11:16 11:19 11:35 WBC 11.9 H (4.8-10.8) X10*3/uL RBC 4.60 (4.20-5.50) X10*6/uL Hgb 13.0 (12.0-16.0) g/dl Hct 40.0 (37.0-47.0) % MCV 87.0 (80.0-98.0) fL MCH 28.3 (27.0-33.0) pg MCHC 32.5 (31.0-35.0) g/dl RDW 13.2 (11.0-16.0) % Plt Count 162 (160-400) X10*3/uL MPV 13.0 H (9.4-12.3) fL Immature Gran % (Auto) 0.7 H (0.0-0.4) % Neut % (Auto) 73.1 H (45-73) % Lymph % (Auto) 16.6 L (20-40) % Caldwell % (Auto) 8.7 (2-11) % Eos % (Auto) 0.3 (0-4) % Baso % (Auto) 0.6 (0-2) % Lymph # (Auto) 2.0 (1.2-4.9) X10*3/uL Caldwell # (Auto) 1.0 (0.1-1.2) X10*3/uL Eos # (Auto) 0.0 (0.0-0.4) X10*3/uL Baso # (Auto) 0.1 (0.0-0.2) X10*3/uL Abs Immat Gran (auto) 0.08 H (0.00-0.03) X10*3/uL Absolute Neuts (auto) 8.7 H (2.0-8.3) x10*3/uL Absolute Nucleated RBC 0.000 (0.0-0.012) X10*3/uL Nucleated RBC % (auto) 0.0 (0.0-0.2) /100WBC Sodium 138 (135-145) mmol/L Potassium 4.0 (3.3-5.1) mmol/L Chloride 102 (96-108) mmol/L Carbon Dioxide 27 (22-29) mmol/L Anion Gap 13 (12-20) BUN 11 (9-16) mg/dL Creatinine 0.82 (0.5-1.4) mg/dL Estim Creat Clear Calc 63.2 Estimated GFR > 60 Random Glucose 98 (60-115) mg/dL Lactic Acid (0.5-2.0) mmol/L Calcium 9.8 (8.4-10.2) mg/dL Total Bilirubin 1.4 H (0.0-1.0) mg/dL AST 33 H (5-31) U/L ALT 57 H (0-31) U/L Alkaline Phosphatase 101 (39-117) U/L Total Protein 7.7 (6.5-8.0) g/dL Albumin 4.6 (3.5-5.0) g/dL Beta HCG, Quant 5 mIU/mL Urine Color Yellow Urine Appearance Clear Urine pH 6.5 (5.0-9.0) Ur Specific [place] 1.015 (1.005-1.025) Urine Protein 300 (3+) H (Neg-Trace) mg/dL Urine Glucose (UA) Negative (Negative) mg/dL Urine Ketones Negative (Negative) mg/dL Urine Blood Trace H (Negative) Urine Nitrite Negative (Negative) Ur Leukocyte Esterase Moderate (2+) H (Negative) Urine RBC 0-2 (0-2) /HPF Urine WBC 21-50 H (0-5) /HPF Ur Squamous Epith Cells 6-10 (0-2) /HPF Urine Bacteria None Seen (None Seen) Hyaline Casts 0-2 (0-2) /LPF Urine Test NEGATIVE (NEGATIVE) COVID-19 (NATHEN) Negative (Negative) COVID-19 Clin Com See Note Influenza Type A (JOVANY) Negative (Negative) Influenza Type B (JOVANY) Negative (Negative) Influenza A & B Note See Note 08/29/25 Range/Units 11:54 WBC (4.8-10.8) X10*3/uL RBC (4.20-5.50) X10*6/uL Hgb (12.0-16.0) g/dl Hct (37.0-47.0) % MCV (80.0-98.0) fL MCH (27.0-33.0) pg MCHC (31.0-35.0) g/dl RDW (11.0-16.0) % Plt Count (160-400) X10*3/uL MPV (9.4-12.3) fL Immature Gran % (Auto) (0.0-0.4) % Neut % (Auto) (45-73) % Lymph % (Auto) (20-40) % Caldwell % (Auto) (2-11) % Eos % (Auto) (0-4) % Baso % (Auto) (0-2) % Lymph # (Auto) (1.2-4.9) X10*3/uL Caldwell # (Auto) (0.1-1.2) X10*3/uL Eos # (Auto) (0.0-0.4) X10*3/uL Baso # (Auto) (0.0-0.2) X10*3/uL Abs Immat Gran (auto) (0.00-0.03) X10*3/uL Absolute Neuts (auto) (2.0-8.3) x10*3/uL Absolute Nucleated RBC (0.0-0.012) X10*3/uL Nucleated RBC % (auto) (0.0-0.2) /100WBC Sodium (135-145) mmol/L Potassium (3.3-5.1) mmol/L Chloride (96-108) mmol/L Carbon Dioxide (22-29) mmol/L Anion Gap (12-20) BUN (9-16) mg/dL Creatinine (0.5-1.4) mg/dL Estim Creat Clear Calc Estimated GFR Random Glucose (60-115) mg/dL Lactic Acid 1.5 (0.5-2.0) mmol/L Calcium (8.4-10.2) mg/dL Total Bilirubin (0.0-1.0) mg/dL AST (5-31) U/L ALT (0-31) U/L Alkaline Phosphatase (39-117) U/L Total Protein (6.5-8.0) g/dL Albumin (3.5-5.0) g/dL Beta HCG, Quant mIU/mL Urine Color Urine Appearance Urine pH (5.0-9.0) Ur Specific [place] (1.005-1.025) Urine Protein (Neg-Trace) mg/dL Urine Glucose (UA) (Negative) mg/dL Urine Ketones (Negative) mg/dL Urine Blood (Negative) Urine Nitrite (Negative) Ur Leukocyte Esterase (Negative) Urine RBC (0-2) /HPF Urine WBC (0-5) /HPF Ur Squamous Epith Cells (0-2) /HPF Urine Bacteria (None Seen) Hyaline Casts (0-2) /LPF Urine Test (NEGATIVE) COVID-19 (NATHEN) (Negative) COVID-19 Clin Com Influenza Type A (JOVANY) (Negative) Influenza Type B (JOVANY) (Negative) Influenza A & B Note Independent Interpretation I performed an independent interpretation of an: CT Scan Interpretation: Inflammation of the colon on the left side of the abdomen is appreciated, no free air, no obstruction appreciated Radiology Impression Discussion of test interpretation with radiology: I have reviewed the radiologist's reading. Radiologist Impression: CT/CT abdomen pelvis wo IV con IMPRESSION: Acute nonperforated diverticulitis, distal descending colon and proximal sigmoid colon. Hepatomegaly and steatosis. Small fat-containing umbilical hernia and diastases abdominal rectus muscle. Scoliosis and spondylosis resulting in grade 1 retrolisthesis L4-5. External Record Review External record reviewed: Inpatient record, Office record, Outpatient record and Prior outpatient labs Prescription Management I considered prescription management with: Pain Medication and Antibiotic Chronic Conditions Patient?s care impacted by: Other (Recurrent UTI, history of diverticulitis) Critical Care Time Critical Care Time Critical Care Time: Yes Total Critical Care Time: 36 Attestation: I have personally provided critical care time exclusive of time spent on separately billable procedures. Time includes review of lab data, radiology results, discussion with consultants, and monitoring for potential decompensation. Intervention performed as documented. Discharge Plan Discharge Clinical Impression: Diverticulitis, UTI (urinary tract infection) Patient Disposition: Home, Self-Care Instructions: Diverticulitis (DC), Urinary Tract Infection in Women (DC), Diverticulitis Diet (ED) Additional Instructions: Your urine test showed a urinary tract infection. No kidney stones on imaging. You have diverticulitis, no evidence of abscess or perforation. Take the prescribed antibiotics as directed, complete the entire course and do not miss any doses Take the metronidazole starting tonight. Start the levofloxacin tomorrow morning. Recommend taking the prescribed naproxen 2 times a day for pain, this will help decrease the inflammation in your colon as well. Stick to a liquid diet for the next 3 days and then slowly add solid foods such as applesauce, toast, rice, bananas. Slowly advanced her diet as tolerated Follow-up with your primary care doctor If you develop new or worsening symptoms call 911 or come back to the ER for further evaluation. Prescriptions: New metronidazole 500 mg tablet 500 mg PO BID 7 Days Qty: 14 0RF levofloxacin 500 mg tablet 500 mg PO DAILY Qty: 6 0RF naproxen 500 mg tablet 500 mg PO BID PRN (Reason: pain) Qty: 14 0RF No Action levothyroxine 75 mcg tablet 1 tab PO DAILY acetaminophen 500 mg tablet 500 mg PO Q6H PRN (Reason: fever or pain) Qty: 30 0RF Debrox 6.5 % drops 5 drp otic (ear) right DAILY 4 Days Qty: 15 0RF benzonatate 100 mg capsule 100 mg PO BID PRN (Reason: cough) Qty: 10 0RF lisinopril 10 mg tablet 10 mg PO DAILY hydrocortisone [Proctosol HC] 2.5 % cream with perineal applicator 1 appl FL BID-QID PRN (Reason: hemorrhoids) Qty: 30 2RF hydrocortisone acetate [Anucort-HC] 25 mg suppository 25 mg FL BID Qty: 24 2RF terconazole 0.8 % cream 1 appful vaginal BEDTIME 3 Days Qty: 20 0RF clobetasol 0.05 % cream 1 appl topical BID 14 Days Qty: 45 1RF Rx Instructions: Then maintenance therapy for 2-3 times per week docusate sodium 100 mg capsule 200 mg PO BEDTIME Qty: 180 3RF polyethylene glycol 3350 [Miralax] 17 gram/dose powder 17 g PO DAILY Qty: 510 2RF Jardiance 10 mg tablet 10 mg PO DAILY bisacodyl 5 mg tablet,delayed release (DR/EC) 10 mg PO DAILY Qty: 180 3RF Referrals: Name,MD Cedric [Primary Care Provider, Internal Medicine] Stand Alone Forms: Work/School Release Interventions: ED Discharge Assessment Last Done: 08/29/25 15:12 Discharge Date/Time: 08/29/25 15:12 Print Language: Turkish
[2025-08-29 11:25] LABS: MANUAL DIFF FLAG NO
[2025-08-29 11:26] LABS: Hematocrit 40.0 % (37.0-47.0); Hemoglobin 13.0 g/dl (12.0-16.0); Imm Gran Abs Auto 0.08 X10*3/uL (0.00-0.03); Imm Gran Pct Auto 0.7 % (0.0-0.4); Lymphocytes Absolute Auto 2.0 X10*3/uL (1.2-4.9); Mean Corpuscular HGB Conc 32.5 g/dl (31.0-35.0); Mean Corpuscular Hemoglobin 28.3 pg (27.0-33.0); Mean Corpuscular Volume 87.0 fL (80.0-98.0); NRBC Abs Auto 0.000 X10*3/uL (0.0-0.012); NRBC Pct Auto 0.0 /100WBC (0.0-0.2); Platelet Count 162 X10*3/uL (160-400); Red Blood Count 4.60 X10*6/uL (4.20-5.50); White Blood Count 11.9 X10*3/uL (4.8-10.8)
[2025-08-29 11:26] LABS: Appearance Urine Clear; Glucose Urine UA Negative (Negative); PH 6.5 (5.0-9.0); Specific Gravity - Urine 1.015 (1.005-1.025); UMIC TRIGGER UACC YES
[2025-08-29 11:29] VITALS: BP 109/68; PULSE 96; RESP 16; TEMP 36.5
[2025-08-29 11:36] LABS: UACC Culture Trigger YES
[2025-08-29 11:42] LABS: IDNOW Serial# 55D5AD1C; Influenza B2 Negative (Negative)
[2025-08-29 11:43] LABS: UPreg QC Valid YES
[2025-08-29 11:47] LABS: Alanine Aminotransferase 57 U/L (0-31); Albumin Level 4.6 g/dL (3.5-5.0); Anion Gap 13 (12-20); Aspartate Amino Transferase 33 U/L (5-31); Blood Urea Nitrogen 11 mg/dL (9-16); Calcium 9.8 mg/dL (8.4-10.2); Carbon Dioxide 27 mmol/L (22-29); Chloride 102 mmol/L (96-108); Creatinine Clr Calc Pharmacy 63.2; Estimated Glomerular Filt Rate > 60; Potassium 4.0 mmol/L (3.3-5.1); Sodium 138 mmol/L (135-145); Total Protein 7.7 g/dL (6.5-8.0)
[2025-08-29 11:49] LABS: COVID-19 Test Negative (Negative); IDNOW Serial# 58CA691E
[2025-08-29 11:54] VITALS: BP 118/74
[2025-08-29 11:56] LABS: Alkaline Phosphatase 101 U/L (39-117)
[2025-08-29 12:09] VITALS: BP 121/73; PULSE 96; O2SAT 98
--- NOTE | 2025-08-29 13:00 | PC.NURSE ---
verified 2nd set of cultures received by lab per gonsalo Jalloh technesperanza
[2025-08-29] MEDS: metroNIDAZOLE/NS 500 MG/100 ML PIGGYBACK 100 MG IV (13:38)
[2025-08-29 14:31] VITALS: BP 112/69; PULSE 91; RESP 16; O2SAT 97
--- OUTSIDE RECORDS SUMMARY | 2025-08-29 14:52 | XMS_ITS | Encounter Summary ---
Author Organization [employer] Address [address] [place] [address] Care Team Providers Care Geologist Name Role Phone Name, Cedric NICK Primary Care Provider [phone] Encounter Details Date Type Department Care Team ([facility] Contact Info) Description 09/23/2023 Orders Only [facility] [address] [place], [place] [phone] Name, MD Cedric [address] [place] [address] Social History Tobacco Use Types Packs/Day Years [...] Description 09/18/2025 3:00 PM EST Office Visit [facility] [address] [place] [address] Jayro, Iza [address] [place] [address] 09/26/2025 10:30 AM EST Office Visit [facility] [address] [place] [address] Name, MD Cedric [address] [place] [address] documented as of this encounter Visit Diagnoses Not on filedocumented in this encounter Additional Health Concerns Assessment Noted Time PHQ-9 Depression Total Score: 0 11/19/19 23 1:50 PM EST documented as of this encounter Care Teams Geologist Relationship Specialty Start Date End Date Name, MD Cedric [address] [place] [id number] PCP - General Family Medicine 04/06/16 documented as of this encounter
--- OUTSIDE RECORDS SUMMARY | 2025-08-29 14:52 | XMS_ITS | Clinical Summary ---
Author Organization [facility] Address [address] [place] [address] Phone Care Team Providers Care Restrooms Or Lounges Maid Name Role Phone Name, Cedric NICK Primary Care Provider [phone] Allergies Active Allergy Reactions Criticality Noted Date [...] each day 09/30/2021 Active Deep Sea Nasal Berger 0.65 % nasal spray 11/04/2021 Active polyethylene [...] Upcoming Encounters Date Type Department Care Team ([facility] st Contact Info) Description 09/20/2025 Orders Only [facility] [address] [phone] Buddy Ortiz MD [address] [phone] Nephrolithiasis; Proteinuria, not otherwise specified; Vitamin D deficiency, not otherwise specified 09/23/2025 10:00 AM EST Office Visit [facility] [address] [phone] Buddy Ortiz MD [address] [phone] Health Maintenance Due Date Last Done Comments Breast Cancer Screening 1968 Pneumococcal Vaccine: 50+ Ye ars (1 of 2 - PCV) 1987 Colorectal Cancer Screening: Annual FOBT 2017 Colorectal Cancer Screening: Colonoscopy 2017 Colorectal Cancer Screening: Sigmoidoscopy 2017 Hepatitis B Vaccine (3 of 3 - 19+ 3-dose series) 07/27/2023 03/29/2023, 01/24/2023 Influenza Vaccine (#1) 2025 , 09/16/2020, 08/09/2018, Additional history exists [place] [address] ([id number]) [facility] Plan ([id number]) Care Teams Restrooms Or Lounges Maid Relationship Specialty Start Date End Date Name, MD Cedric [address] [place] [id number] PCP - General Internal Medicine 02/02/22
--- OUTSIDE RECORDS SUMMARY | 2025-08-29 14:52 | XMS_ITS | Encounter Summary ---
Author Organization [employer] Address [address] [place] [address] Care Team Providers Care Steak Tenderizer Machine Name Role Phone Name, Cedric NICK Primary Care Provider [phone] Encounter Details Date Type Department Care Team ([facility] st Contact Info) Description 08/29/2025 Orders Only GENERIC EXTERNAL DATA DEPARTMENT Provider, Generic External Data Social History Tobacco Use Types Packs/Day Years [...] Description 09/18/2025 3:00 PM EST Office Visit [facility] [address] [place] [address] Jayro, Iza [address] [place] [address] 09/26/2025 10:30 AM EST Office Visit [facility] [address] [place] [address] Name, MD Cedric [address] [place] [address] documented as of this encounter Procedures Procedure Name Priority Date/Time Associated Diagnosis Comments LACTIC ACID Routine 08/29/2025 11:[address] ABDOMEN PELVIS WO CONTRAST Routine 08/29/2025 11:40 AM EDT HCG, QL, URINE Routine 08/29/2025 11:35 AM EDT CBC WITH AUTO DIFFERENTIAL Routine 08/29/2025 11:19 AM EDT HCG, TOTAL, QN Routine 08/29/2025 11:19 AM EDT COMPREHENSIVE METABOLIC PANEL Routine 08/29/2025 11:19 AM EDT INFLUENZA A B2 ID NOW (TIMMONS) Routine 08/29/2025 11:16 AM EDT COVID-19 ID NOW ([facility]) Routine 08/29/2025 11:16 AM EDT URINALYSIS, COMPLETE, WITH REFLEX TO CULTURE Routine 08/29/2025 11:16 AM EDT documented in this encounter Results * Lactic Acid (08/29/2025 11:54 AM EDT) Lactic Acid 1.5 0.5 - 2.0 mmol/L [facility] 08/29/2025 11:5 4 AM EDT 08/29/2025 12:01 PM EDT us Generic External Data Provider LAB BLOOD ORDERAB LES Final Result Performing Organization Address City/State/[facility] Co de Phone Number [facility] [address] [place] [address] [phone] * CT Abdomen Pelvis w/o Contrast (08/29/2025 11:40 AM EDT) Anatomical Region Laterality Modality Body, Pelvis, Abdomen Computed T omography 08/29/2025 11:4 0 AM EDT Narrative 08/29/2025 12:10 PM EDT [place] [address] CT Scan Report Signed Patient: Maryann Tan MR #: [id number] : 1970 Acct:[id number] Age/Sex: 55 / F ADM Date: 08/29/25 Loc: HO.ED Attending Dr: Ordering Physician: Galindo Stephens Date of Service: 08/29/25 Procedure(s): CT abdomen pelvis wo IV con Accession Number(s): [id number] cc: Galindo Stephens; Name,Cedric NICK Report Number: [id number]: Total DLP = 420.00 mGy-cm Reason for Exam: Lower abdominal pain EXAMINATION: CT ABDOMEN AND PELVIS WITHOUT CONTRAST CLINICAL INFORMATION: Lower abdominal pain. COMPARISON: March 29, 2024. TECHNIQUE: Multidetector volumetric imaging was performed from the superior aspect of the liver through the pubic symphysis. Sagittal and coronal reformatted images were obtained on the technologist's workstation. This CT examination was performed using dose optimization techniques as appropriate, variously including the following: *Automated exposure control *Adjustment of mA and/or kV according to patient size (this includes techniques or standardized protocols for targeted exams where dose is matched to indication/reason for exam; i.e. extremities or head) *Use of iterative reconstruction technique DLP: 420 mGy centimeter. FINDINGS: Limited evaluation of the intra-abdominal solid organs and vascular structures due to lack of IV contrast. LUNG BASES: Pulmonary patchy groundglass. LIVER, GALLBLADDER, AND BILIARY TREE: Liver measures 17 cm. Decreased attenuation. No intrahepatic biliary ductal dilatation. Gallbladder is nondistended. No pericholecystic fluid collection or gallbladder wall thickening. No extrahepatic biliary ductal dilatation. PANCREAS: No peripancreatic fluid collection. No main pancreatic ductal dilatation. SPLEEN: 11 cm. ADRENAL GLANDS: No nodular lesions. KIDNEYS AND URETERS: No hydronephrosis or nephrolithiasis. Extrarenal pelvis, right kidney. BLADDER: Fluid-filled nearly collapsed. GASTROINTESTINAL TRACT: Numerous diverticula throughout the large intestine. There is a focal segmental wall thickening with associated slightly hyperdense diverticula and pericolonic edema pattern involving the distal descending/proximal sigmoid colon. No fluid collection. No pneumoperitoneum. No pneumatosis intestinalis. Sutures at the rectosigmoid colon junction without gross abnormality. Appendix is normal and retrocecal. No ascites. No pneumoperitoneum. ABDOMINAL WALL: Breast is abdominal rectus muscles in the periumbilical region with small fat-containing umbilical hernia. LYMPH NODES: Prominent, mesenteric and retroperitoneum. VASCULAR: No aneurysm, abdominal aorta. No gross calcified plaques. PELVIC VISCERA: Inadequate evaluation. Uterus is seen indifferent position. OSSEOUS STRUCTURES: A shaped curvature of the lower lumbar spine with the syndesmophyte formation and marginal osteophyte formation and decreased intervertebral disc height at L4-5. Grade 1 in retrolisthesis L4-5. Sclerosis and the sacroiliac joints. CT/CT abdomen pelvis wo IV con IMPRESSION: Acute nonperforated diverticulitis, distal descending colon and proximal sigmoid colon. Hepatomegaly and steatosis. Small fat-containing umbilical hernia and diastases abdominal rectus muscle. Scoliosis and spondylosis resulting in grade 1 retrolisthesis L4-5. Fleischner guidelines were followed. Electronically signed by: Broderick Santiago MD 08/29/2025 12:07 PM EDT Dictated By: Broderick Bui MD Signed By: <Electronically signed by Broderick Darling MD in OV> 08/29/25 1207 DD/ 1140 TD/TT: 08/29/25 1150 Air Chipper: Procedure Note Donotuseinterpreter, Image - 08/29/[address] [address] [address] Scan Report Signed Patient: Maryann Tan AMR #: [id number] : 1970Acct:[id number] Age/Sex: 55 / FADM Date: 08/29/25 Loc: .ED Attending Dr: Ordering Physician: Galindo Stephens Date of Service: 08/29/25 Procedure(s): CT abdomen pelvis wo IV con Accession Number(s): [id number] cc: Galindo Stephens; Name,Cedric NICK Report Number: [id number]: Total DLP = 420.00 mGy-cm Reason for Exam: Lower abdominal pain EXAMINATION: CT ABDOMEN AND PELVIS WITHOUT CONTRAST CLINICAL INFORMATION: Lower abdominal pain. COMPARISON: March 29, 2024. TECHNIQUE: Multidetector volumetric imaging was performed from the superior aspect of the liver through the pubic symphysis. Sagittal and coronal reformatted images were obtained on the technologist's workstation. This CT examination was performed using dose optimization techniques as appropriate, variously including the following: *Automated exposure control *Adjustment of mA and/or kV according to patient size (this includes techniques or standardized protocols for targeted exams where dose is matched to indication/reason for exam; i.e. extremities or head) *Use of iterative reconstruction technique DLP: 420 mGy centimeter. FINDINGS: Limited evaluation of the intra-abdominal solid organs and vascular structures due to lack of IV contrast. LUNG BASES: Pulmonary patchy groundglass. LIVER, GALLBLADDER, AND BILIARY TREE: Liver measures 17 cm. Decreased attenuation. No intrahepatic biliary ductal dilatation. Gallbladder is nondistended. No pericholecystic fluid collection or gallbladder wall thickening. No extrahepatic biliary ductal dilatation. PANCREAS: No peripancreatic fluid collection. No main pancreatic ductal dilatation. SPLEEN: 11 cm. ADRENAL GLANDS: No nodular lesions. KIDNEYS AND URETERS: No hydronephrosis or nephrolithiasis. Extrarenal pelvis, right kidney. BLADDER: Fluid-filled nearly collapsed. GASTROINTESTINAL TRACT: Numerous diverticula throughout the large intestine. There is a focal segmental wall thickening with associated slightly hyperdense diverticula and pericolonic edema pattern involving the distal descending/proximal sigmoid colon. No fluid collection. No pneumoperitoneum. No pneumatosis intestinalis. Sutures at the rectosigmoid colon junction without gross abnormality. Appendix is normal and retrocecal. No ascites. No pneumoperitoneum. ABDOMINAL WALL: Breast is abdominal rectus muscles in the periumbilical region with small fat-containing umbilical hernia. LYMPH NODES: Prominent, mesenteric and retroperitoneum. VASCULAR: No aneurysm, abdominal aorta. No gross calcified plaques. PELVIC VISCERA: Inadequate evaluation. Uterus is seen indifferent position. OSSEOUS STRUCTURES: A shaped curvature of the lower lumbar spine with the syndesmophyte formation and marginal osteophyte formation and decreased intervertebral disc height at L4-5. Grade 1 in retrolisthesis L4-5. Sclerosis and the sacroiliac joints. CT/CT abdomen pelvis wo IV con IMPRESSION: Acute nonperforated diverticulitis, distal descending colon and proximal sigmoid colon. Hepatomegaly and steatosis. Small fat-containing umbilical hernia and diastases abdominal rectus muscle. Scoliosis and spondylosis resulting in grade 1 retrolisthesis L4-5. Fleischner guidelines were followed. Electronically signed by: Broderick Santiago MD 08/29/2025 12:07 PM EDT Dictated By: Broderick Bui MD Signed By: <Electronically signed by Broderick Darling MDin OV> 08/29/25 1207 DD/ 1140 TD/TT: 08/29/25 1150 Air Chipper: [facility] External Provider IMG CT PROCEDURES Edited Result - Final * HCG, Qualitative, Urine (08/29/2025 11:35 AM EDT) Urine NEGATIVE NEGATIVE [facility] Comment:This test was develo ped to detect early . Falsenegative results may occur after the 5th - 7th week ofpregnancy when using this test method. If clinicallyindicated, consider a serum hCG. 08/29/2025 11:3 5 AM EDT 08/29/2025 11:37 AM EDT us Generic External Data Provider LAB URINE ORDERAB LES Final Result Performing Organization Address City/[facility]/ZIP Co de Phone Number [facility] [address] [place] [address] [phone] * hCG, Total, Quantitative (08/29/2025 11:19 AM EDT) HCG Quantitative 5 mIU/mL [facility] Comment:Weeks post LMP Appro ximate hCG(Last Menstrual Period) Range (mIU/ml)3 - 4 weeks 9 - 1304 - 5 weeks 75 - 2,6005 - 6 weeks 850 - 20,8006 - 7 weeks 4000 - 100,2007 - 12 weeks 11,500 - 289,15139 - 16 weeks 18,300 - 137,06875 - 29 weeks (2nd trimester) 1,400 - 53,21711 - 41 weeks (3rd trimester) 940 - 60,000The [facility]mons B- hCG assay is used for the early detection ofpregnancy; it cannot be used to diagnose any conditionunrelated to . If a B-hCG level is not supportedby the clinical evidence, results should be confirmed by analternative method (qualitative urine hCG, for example). 08/29/2025 11:1 9 AM EDT 08/29/2025 11:22 AM EDT us Generic External Data Provider LAB BLOOD ORDERAB LES Final Result Performing Organization Address City/[facility]/ZIP Co de Phone Number [facility] [address] [place] [phone] * (ABNORMAL) Comprehensive Metabolic Panel (08/29/2025 11:19 AM EDT) Sodium 138 135 - 145 mmol/L [facility] Potassium 4.0 3.3 - 5.1 mmol/L [facility] Chloride 102 96 - 108 mmol/L [facility] Carbon Dioxide 27 22 - 29 mmol/L [facility] Anion Gap 13 12 - 20 [facility] Urea Nitrogen (BUN) 11 9 - 16 mg/dL [facility] Creatinine, Serum 0.82 0.5 - 1.4 mg/dL [facility] Creatinine Clr Calc Pharmacy 63.2 [facility] Comment:Provided height and weight: 154.94 cm,60.7 kg.eGFR (calculated from the MDRD study equation) and eCrCl(calculated from the Cockcroft-Gault equation) are based ondifferent parameters and may not yield comparable results.If eCrCl result is absurd, please check patient'sheight/weight. Estimated Glomerular Filt Rate >60 [facility] Comment:Chronic Kidney Disea se: Estimated GFR < 60 mL/min/1.20z5Pbmzwk Kidney Disease: Estimated GFR < 15 mL/min/1.73m2 Glucose 98 60 - 115 mg/dL [facility] Calcium 9.8 8.4 - 10.2 mg/dL [facility] Bilirubin, Total 1.4(H) 0.0 - 1.0 mg/dL [facility] Aspartate Amino Transferase 33(H) 5 - 31 U/L [facility] Alanine Aminotransferase 57(H) 0 - 31 U/L [facility] Total Protein 7.7 6.5 - 8.0 g/dL [facility] Albumin Level 4.6 3.5 - 5.0 g/dL [facility] Alkaline Phosphatase 101 39 - 117 U/L [facility] 08/29/2025 11:1 9 AM EDT 08/29/2025 11:22 AM EDT us Generic External Data Provider LAB BLOOD ORDERAB LES Final Result [facility] [address] [place] [address] [phone] * (ABNORMAL) CBC auto differential (08/29/2025 11:19 AM EDT) White Blood Count 11.9(H) 4.8 - 10.8 X10*3/uL [facility] Red Blood Count 4.60 4.20 - 5.50 X10*6/uL [facility] Hemoglobin 13.0 12.0 - 16.0 g/dl [facility] Hematocrit 40.0 37.0 - 47.0 % [facility] Mean Corpuscular Volume 87.0 80.0 - 98.0 fL [facility] Mean Corpuscular Hemoglobin 28.3 27.0 - 33.0 pg [facility] Mean Corpuscular HGB Conc 32.5 31.0 - 35.0 g/dl [facility] Red Cell Distribution Width 13.2 11.0 - 16.0 % [facility] Platelet Count 162 160 - 400 X10*3/uL [facility] Mean Platelet Volume 13.0(H) 9.4 - 12.3 fL [facility] Neutrophils Percent Auto 73.1(H) 45 - 73 % [facility] Imm Gran Pct Auto 0.7(H) 0.0 - 0.4 % [facility] Lymphocytes Percent Auto 16.6(L) 20 - 40 % [facility] Monocytes Percent Auto 8.7 2 - 11 % [facility] Eosinophils Percent Auto 0.3 0 - 4 % [facility] Basophils Percent Auto 0.6 0 - 2 % [facility] NRBC Pct Auto 0.0 0.0 - 0.2 /100WBC [facility] Neutrophils Absolute Auto 8.7(H) 2.0 - 8.3 x10*3/uL [facility] Imm Gran Abs Auto 0.08(H) 0.00 - 0.03 X10*3/uL [facility] Lymphocytes Absolute Auto 2.0 1.2 - 4.9 X10*3/uL [facility] Monocytes Absolute Auto 1.0 0.1 - 1.2 X10*3/uL [facility] Eosinophils Absolute Auto 0.0 0.0 - 0.4 X10*3/uL [facility] Basophils Absolute Auto 0.1 0.0 - 0.2 X10*3/uL [facility] NRBC Abs Auto 0.000 0.0 - 0.012 X10*3/uL [facility] 08/29/2025 11:1 9 AM EDT 08/29/2025 11:22 AM EDT us Generic External Data Provider LAB BLOOD ORDERAB LES Final Result [facility] [address] [place] [address] [phone] * COVID-19 ID NOW (Ace Metrix) (08/29/2025 11:16 AM EDT) IDNOW SERIAL# [id number] [facility] COVID-19 TEST Negative Negative [facility] COVID-19 NOTE See Note [facility] Comment: Results are for the identification of SARS-CoV2 RNA. TheSARS-CoV2 RNA is generally detectable in respiratory samplesduring the acute phase of infection. Positive results areindicative of the presence of SARS-CoV-2 RNA; clinicalcorrelation with patient history and other diagnosticinformation is necessary to determine patient infectionstatus. Positive results do not rule out bacterial infectionor co- infection with other viruses.Testing facilities within the [facility] and itsterritories are required to report all positive results tothe appropriate public health authorities.Negative results should be treated as presumptive and, ifinconsistent with clinical signs and symptoms or necessaryfor patient management, should be tested with differentauthorized or cleared molecular tests. Negative results donot preclude SARS-CoV2 RNA infection and should not be usedas the sole basis for patient management decisions. Negativeresults should be considered in the context of a patient'srecent exposures, history and the presence of clinical signsand symptoms consistent with COVID-19.This test has been authorized by the FDA under an EmergencyUse Authorization (EUA) for use by authorized laboratories.Testing performed on the UYA100 ID NOW utilizing NAAT. 08/29/2025 11:1 6 AM EDT 08/29/2025 11:22 AM EDT Generic External Data Provider LAB MOLECULAR ROCCO GNOSTICS ORDERABLES Final Result Performing Organization Address [facility] Co de Phone Number [facility] [address] [place] [phone] * Influenza A B2 ID NOW ([place]) (08/29/2025 11:16 AM EDT) IDNOW SERIAL# [id number] [facility] Influenza A Negative Negative [facility] Influenza B2 Negative Negative [facility] Influenza A B2 Note See Note [facility] Comment:The Timmons ID NOW In fluenza A B2 test is used for thequalitative detection of influenza A and B from patientswith signs and symptoms of respiratory infection.Negative results do not preclude influenza virus infectionand should not be used as the sole basis for diagnosis,treatment or other patient management decisions.There is a risk of false negative results due to thepresence of variants in the viral targets of the assay, lowlevels of virus in the specimen and co- infection withRespiratory Syncytial Virus. 08/29/2025 11:1 6 AM EDT 08/29/2025 11:22 AM EDT Generic External Data Provider LAB MICROBIOLOGY - GENERAL ORDERABLES Final Result Performing Organization Address [facility] Co de Phone Number [facility] [address] [place] [phone] * (ABNORMAL) Urinalysis, Complete, with Reflex to Culture (08/29/2025 11:16 AM EDT) Color Urine Yellow [facility] Appearance Urine Clear [facility] PH 6.5 5.0 - 9.0 [facility] Glucose Urine UA Negative Negative mg/dL [facility] Urine Blood Trace(A) Negative [facility] Specific [place] - Urine 1.015 1.005 - 1.025 [facility] Urine Protein 300 (3+)(A) Neg-Trace mg/dL [facility] Urine Ketones Negative Negative mg/dL [facility] Nitrite Urine Negative Negative [facility] Leukocyte Esterase Urine Moderate (2+)(A) Negative [facility] RBC Urine 0-2 0 - 2 /HPF [facility] Urine WBC 21-50(A) 0 - 5 /HPF [facility] Urine Squamous Epithelial Cell 6-10 0 - 2 /HPF [facility] Urine Bacteria None Seen None Seen [facility] Hyaline Casts, Urine 0-2 0 - 2 /LPF [facility] 08/29/2025 11:1 6 AM EDT 08/29/2025 11:22 AM EDT Narrative [facility] - 08/29/2025 11:36 AM EDT [id number], [employer] us Generic External Data Provider LAB URINE ORDERAB LES Final Result [facility] [address] [place] [phone] [phone] documented in this encounter Visit Diagnoses Not on filedocumented in this encounter Additional Health Concerns Assessment Noted Time PHQ-9 Depression Total Score: 0 06/27/ 25 10:35 AM EDT documented as of this encounter Care Teams Steak Tenderizer Machine Relationship Specialty Start Date End Date Name, MD Cedric [address] [place] [address] PCP - General Family Medicine 04/06/16 documented as of this encounter
--- OUTSIDE RECORDS SUMMARY | 2025-08-29 14:52 | XMS_ITS | Encounter Summary ---
Author Organization [employer] Address [address] [place] [address] [address] [place] [address] Care Team Providers Care Bulk Plant Agent Name Role Phone Name, Cedric NICK Primary Care Provider [phone] Encounter Details Date Type Department Care Team (Latest Contact Info) Description 04/01/2022 Abstract [facility] CONVERSIONS Dental, Provider, DDS Social History [...] 09/18/2025 3:00 PM EST Office Visit [facility] ADULT [facility] [address] [place] [address] Jayro, Iza [address] [place] [address] 09/26/2025 10:30 AM EST Office Visit [facility] MEDICINE [address] [place] [address] Cedric Liao MD [address] [place] [phone] documented as of this encounter Visit Diagnoses Not on filedocumented in this encounter Care Teams Bulk Plant Agent Relationship Specialty Start Date End Date Cedric Liao MD [address] [place] [address] PCP - General Family Medicine 04/06/16 documented as of this encounter
--- OUTSIDE RECORDS SUMMARY | 2025-08-29 14:52 | XMS_ITS | Clinical Summary ---
Author Organization [employer] Address [address] [facility] 7t [place] [address] Care Team Providers Care Pea Viner Mechanic Name Role Phone Name, Cedric NICK Primary Care Provider [phone] Allergies Active Allergy Reactions Criticality Noted Date [...] IN WATER AND TAKE ONCE DIRECTED BY [facility] GI DEPT 05/31/20 23 Active Acetaminophen [...] per day. 30 tablet 11 02/06/20 25 Active levothyroxine (Synthroid, Levoxyl) 75 MCG tabletIndications: Acquired hypothyroidism TAKE 1 TABLET BY MOUTH EVERY DAY BEFORE BREAKFAST 90 tablet 1 02/20/20 Active fluticasone (Flonase) 50 MCG/ACT nasal sprayIndications:S easonal allergic rhinitis, unspecified trigger Administer 2 sprays into each nostril Once per day. Shake gently. Before first use, prime pump. After use, clean tip and replace cap. 16 g 2 03/12/20 25 Active lisinopril 10 MG tablet Take 1 tablet (10 mg) by mouth Once per day. 06/27/20 Active empagliflozin (Jardiance) 10 MG Take 1 tablet (10 mg) by mouth Once per day. 30 tablet 11 06/27/20 25 Active cetirizine (ZyrTEC) 10 MG tablet TAKE 1 TABLET BY MOUTH EVERY DAY 30 tablet 2 07/10/20 Active Active Problems Problem Noted Date Diagnosed Date Pigmented villonodular synovitis of right knee 0 06/27/2025 Acute pain of right knee 02/05/2025 Assessment & Plan (02/05/2025 1:05 PM EDT): Patient of Dr. Liao here with c/o new onet of right knee pain. Seen at [facility] 02/02/2025. Work up included a RLE [...] Encounters Date Type Department Care Team Description 08/29/2025 Orders Only GENERIC EXTERNAL DATA DEPARTMENT Provider, Generic External Data 07/19/2025 9:40 AM EDT Office Visit [facility] [address] [place] [phone] David Hebert MD Acute pain of both shoulders (Primary Dx) 07/19/2025 Travel 07/09/2025 Refill [facility] [address] [place] [phone] Yanni, MD Cedric 06/27/2025 10:30 AM EDT Office Visit [facility] [address] [place] [phone] Cedric Liao MD Proteinuria, unspecified type (Primary Dx); Pigmented villonodular synovitis of right knee 06/27/2025 Travel 06/26/2025 Telephone [facility] [address] [place] [phone] Jen Muñoz MA Chart Prep 06/11/2025 Orders Only GENERIC EXTERNAL DATA DEPARTMENT Provider, Generic External Data from Last 3 Months Immunizations Immunization Administration [...] your housing situation today? I have lindy sing 02/20/[address] you li [...] Description 09/18/2025 3:00 PM EST Office Visit [facility] [address] [place] [address] Iza Dial [address] [place] [address] 09/26/2025 10:30 AM EST Office Visit [facility] [address] [facility] [place] [address] Name, [place] [address] Health Maintenance Due Date Last Done Comments [...] Dental X-Ray: Full Mouth 04/02/2025 04/01/2022, 11/2015 COVID-19 Vaccine ( - season) 2025 04/21/2021 Influenza Vaccine (#1) 2025 , 09/16/2020, 08/09/2018, [...] QL, URINE Routine 08/29/2025 11:35 AM EDT HCG, TOTAL, QN Routine 08/29/2025 11:19 AM EDT COMPREHENSIVE METABOLIC PANEL Routine 08/29/2025 11:19 AM EDT CBC WITH AUTO DIFFERENTIAL Routine 08/29/2025 11:19 AM EDT COVID-19 ID NOW ([facility]) Routine 08/29/2025 11:16 AM EDT URINALYSIS, COMPLETE, WITH REFLEX TO CULTURE Routine 08/29/2025 11:16 AM EDT INFLUENZA A B2 ID NOW ([facility]) Routine 08/29/2025 11:16 AM EDT BASIC METABOLIC PANEL Routine 06/27/2025 10:40 AM [...] Recently Relevant to Health Maintenance Results * Lactic Acid (08/29/2025 11:54 AM EDT) Lactic Acid 1.5 0.5 - 2.0 mmol/L [facility] 08/29/2025 11:5 4 AM EDT 08/29/2025 12:01 PM EDT us Generic External Data Provider LAB BLOOD ORDERAB LES Final Result [facility] [address] [place] [phone] * CT Abdomen Pelvis w/o Contrast (08/29/2025 11:40 AM EDT) Anatomical Region Laterality Modality Body, Pelvis, Abdomen Computed T omography 08/29/2025 11:4 0 AM EDT Narrative 08/29/2025 12:10 PM EDT [address] [address] [address] Scan Report Signed Patient: Maryann Tan MR #: [id number] : 1970 Acct:[id number] Age/Sex: 55 / F ADM Date: 08/29/25 Loc: HO.ED Attending Dr: Ordering Physician: Galindo Stephens Date of Service: 08/29/25 Procedure(s): CT abdomen pelvis wo IV con Accession Number(s): [id number] cc: Galindo Stephens; Name,Cedric NICK Report Number: [id number]: Total DLP = 420.00 mGy-cm Reason for [...] 08/29/25 1207 DD/ 1140 TD/TT: 08/29/25 1150 Tuck Pointer: Procedure Note Donotuseinterpreter, Image - 08/29/[address] [address] [address] Scan Report Signed Patient: Maryann Tan AMR #: [id number] : 1970Acct:[id number] Age/Sex: 55 / FADM Date: 08/29/25 Loc: HO.ED Attending Dr: Ordering Physician: Galindo Stephens Date of Service: 08/29/25 Procedure(s): CT abdomen pelvis wo IV con Accession Number(s): [id number] cc: Galindo Stephens; Name,Cedric NICK Report Number: [id number]: Total DLP = 420.00 mGy-cm Reason for [...] Broderick Santiago MD 08/29/2025 12:07 PM EDT RP Dictated By: Broderick Bui MD Signed By: <Electronically signed by Broderick Darling MDin OV> 08/29/25 1207 DD/ 1140 TD/TT: 08/29/25 1150 Tuck Pointer: [facility] External Provider IMG CT PROCEDURES Edited Result - Final * HCG, Qualitative, Urine (08/29/2025 11:35 AM EDT) Urine NEGATIVE NEGATIVE [facility] Comment:This test was develo ped to detect early . Falsenegative results may occur after the 5th - 7th week ofpregnancy when using this test method. If clinicallyindicated, consider a serum hCG. 08/29/2025 11:3 5 AM EDT 08/29/2025 11:37 AM EDT Generic External Data Provider LAB URINE ORDERAB LES Final Result [facility] [address] [place] [phone] * (ABNORMAL) CBC auto differential (08/29/2025 11:19 AM EDT) White Blood Count 11.9(H) 4.8 - 10.8 X10*3/uL [facility] Red Blood Count 4.60 4.20 - 5.50 X10*6/uL [facility] Hemoglobin 13.0 12.0 - 16.0 g/dl [facility] Hematocrit 40.0 37.0 - 47.0 % [facility] Mean Corpuscular Volume 87.0 80.0 - 98.0 fL [facility] Mean Corpuscular Hemoglobin 28.3 27.0 - 33.0 pg [facility] Mean Corpuscular HGB Conc 32.5 31.0 - 35.0 g/dl [facility] Red Cell Distribution Width 13.2 11.0 - 16.0 % [facility] Platelet Count 162 160 - 400 X10*3/uL [facility] Mean Platelet Volume 13.0(H) 9.4 - 12.3 fL [facility] Neutrophils Percent Auto 73.1(H) 45 - 73 % [facility] Imm Gran Pct Auto 0.7(H) 0.0 - 0.4 % [facility] Lymphocytes Percent Auto 16.6(L) 20 - 40 % [facility] Monocytes Percent Auto 8.7 2 - 11 % [facility] Eosinophils Percent Auto 0.3 0 - 4 % [facility] Basophils Percent Auto 0.6 0 - 2 % [facility] NRBC Pct Auto 0.0 0.0 - 0.2 /100WBC [facility] Neutrophils Absolute Auto 8.7(H) 2.0 - 8.3 x10*3/uL [facility] Imm Gran Abs Auto 0.08(H) 0.00 - 0.03 X10*3/uL [facility] Lymphocytes Absolute Auto 2.0 1.2 - 4.9 X10*3/uL [facility] Monocytes Absolute Auto 1.0 0.1 - 1.2 X10*3/uL [facility] Eosinophils Absolute Auto 0.0 0.0 - 0.4 X10*3/uL [facility] Basophils Absolute Auto 0.1 0.0 - 0.2 X10*3/uL [facility] NRBC Abs Auto 0.000 0.0 - 0.012 X10*3/uL [facility] 08/29/2025 11:1 9 AM EDT 08/29/2025 11:22 AM EDT us Generic External Data Provider LAB BLOOD ORDERAB LES Final Result Performing Organization Address [facility]/ZIP Co de Phone Number [facility] [address] [place] [phone] * hCG, Total, Quantitative (08/29/2025 11:19 AM EDT) HCG Quantitative 5 mIU/mL [facility] Comment:Weeks post LMP Appro ximate hCG(Last Menstrual Period) Range (mIU/ml)3 - 4 weeks 9 - 1304 - 5 weeks 75 - 2,6005 - 6 weeks 850 - 20,8006 - 7 weeks 4000 - 100,2007 - 12 weeks 11,500 - 289,83976 - 16 weeks 18,300 - 137,26034 - 29 weeks (2nd trimester) 1,400 - 53,05750 - 41 weeks (3rd trimester) 940 - [...] ORDERAB LES Final Result Performing Organization Address [facility]/ZIP Co de Phone Number [facility] [address] [place] [phone] * (ABNORMAL) Comprehensive Metabolic Panel (08/29/2025 11:19 AM EDT) Sodium 138 135 - 145 mmol/L [facility] Potassium 4.0 3.3 - 5.1 mmol/L [facility] Chloride 102 96 - 108 mmol/L [facility] Carbon Dioxide 27 22 - 29 mmol/L [facility] Anion Gap 13 12 - 20 [facility] Urea Nitrogen (BUN) 11 9 - 16 mg/dL [facility] Creatinine, Serum 0.82 0.5 - 1.4 mg/dL [facility] Creatinine Clr Calc Pharmacy 63.2 [facility] Comment:Provided height and weight: 154.94 cm,60.7 kg.eGFR (calculated from the MDRD study equation) and eCrCl(calculated from the Cockcroft-Gault equation) are based ondifferent parameters and may not yield comparable results.If eCrCl result is absurd, please check patient'sheight/weight. Estimated Glomerular Filt Rate >60 [facility] Comment:Chronic Kidney Disea se: Estimated GFR < 60 mL/min/1.00k3Dxgsir Kidney Disease: Estimated GFR < 15 mL/min/1.73m2 Glucose 98 60 - 115 mg/dL [facility] Calcium 9.8 8.4 - 10.2 mg/dL [facility] Bilirubin, Total 1.4(H) 0.0 - 1.0 mg/dL [facility] Aspartate Amino Transferase 33(H) 5 - 31 U/L [facility] Alanine Aminotransferase 57(H) 0 - 31 U/L [facility] Total Protein 7.7 6.5 - 8.0 g/dL [facility] Albumin Level 4.6 3.5 - 5.0 g/dL [facility] Alkaline Phosphatase 101 39 - 117 U/L [facility] 08/29/2025 11:1 9 AM EDT 08/29/2025 11:22 AM EDT us Generic External Data Provider LAB BLOOD ORDERAB LES Final Result [facility] [address] [place] [phone] * Influenza A B2 ID NOW ([place]) (08/29/2025 11:16 AM EDT) IDNOW SERIAL# [id number] [facility] Influenza A Negative Negative [facility] Influenza B2 Negative Negative [facility] Influenza A B2 Note See Note [facility] Comment:The [place] ID NOW In fluenza [...] 6 AM EDT 08/29/2025 11:22 AM EDT us Generic External Data Provider LAB MICROBIOLOGY - GENERAL ORDERABLES Final Result Performing Organization Address [facility] Co de Phone Number [facility] [address] [place] [phone] * COVID-19 ID NOW ([facility]) (08/29/2025 11:16 AM EDT) IDNOW SERIAL# [id number] [facility] COVID-19 TEST Negative Negative [facility] COVID-19 NOTE See Note [facility] Comment: Results are for the identification of SARS-CoV2 RNA. TheSARS-CoV2 RNA is generally detectable in respiratory samplesduring the acute phase of infection. Positive results areindicative of the presence of SARS-CoV-2 RNA; clinicalcorrelation with patient history and other diagnosticinformation is necessary to determine patient infectionstatus. Positive results do not rule out bacterial infectionor co- infection with other viruses.Testing facilities within the [facility] and itsterritories are required to report all [...] use by authorized laboratories.Testing performed on the [employer] NOW utilizing NAAT. 08/29/2025 11:1 6 AM EDT 08/29/2025 11:22 AM EDT us Generic External Data Provider LAB MOLECULAR ROCCO GNOSTICS ORDERABLES Final Result [facility] [address] [place] [address] [phone] * (ABNORMAL) Urinalysis, Complete, with Reflex to Culture (08/29/2025 11:16 AM EDT) Color Urine Yellow [facility] Appearance Urine Clear [facility] PH 6.5 5.0 - 9.0 [facility] Glucose Urine UA Negative Negative mg/dL [facility] Urine Blood Trace(A) Negative [facility] Specific [place] - Urine 1.015 1.005 - 1.025 [facility] Urine Protein 300 (3+)(A) Neg-Trace mg/dL [facility] Urine Ketones Negative Negative mg/dL [facility] Nitrite Urine Negative Negative [facility] Leukocyte Esterase Urine Moderate (2+)(A) Negative [facility] RBC Urine 0-2 0 - 2 /HPF [facility] Urine WBC 21-50(A) 0 - 5 /HPF [facility] Urine Squamous Epithelial Cell 6-10 0 - 2 /HPF [facility] Urine Bacteria None Seen None Seen [facility] Hyaline Casts, Urine 0-2 0 - 2 /LPF [facility] 08/29/2025 11:1 6 AM EDT 08/29/2025 11:22 AM EDT Narrative [facility] - 08/29/2025 11:36 AM EDT [id number], Clean Catch us Generic External Data Provider LAB URINE ORDERAB LES Final Result Performing Organization Address [facility] Co de Phone Number [facility] [address] [place] [phone] * Basic Metabolic Panel (06/27/2025 10:40 AM EDT) Sodium 139 135 - 145 mmol/L [facility] Potassium 4.2 3.3 - 5.1 mmol/L [facility] Chloride 103 96 - 108 mmol/L [facility] Carbon Dioxide 28 22 - 29 mmol/L [facility] Anion Gap 12 12 - 20 [facility] Urea Nitrogen (BUN) 13 9 - 16 mg/dL [facility] Creatinine, Serum 0.71 0.5 - 1.4 mg/dL [facility] Estimated Glomerular Filt Rate >60 [facility] Comment:Chronic Kidney Disea se: Estimated GFR < 60 mL/min/1.52e8Ymniyz Kidney Disease: Estimated GFR < 15 mL/min/1.73m2 Glucose 81 60 - 115 mg/dL [facility] Calcium 9.4 8.4 - 10.2 mg/dL [facility] Blood Venous blood specimen / Unknown 06/27/2025 10:40 AM EDT 06/27/2025 11:20 AM EDT us Cedric Liao MD LAB BLOOD ORDERABLES Final Resul t Performing Organization Address [facility] Co de Phone Number [facility] [address] [place] [phone] * (ABNORMAL) Albumin, Random Urine W/Creatinine (06/27/2025 12:00 AM EDT) Creatinine, Urine 48.89 mg/dL [facility] Microalbumin Urine 442.0 mg/L [facility] Microalbum Creatinine Ratio Ur 904.0(H) <30 ug/mg cr [facility] Comment:Albumin/Creatinine R atio Reference Ranges: Normal: < 30 ug/mg creatinine Microalbuminuria: 30 - 300 ug/mg creatinineClinical Albuminuria: > 300 ug/mg creatinine Urine (Urine, Random) 06/27/2025 06/27/2025 us Cedric Liao MD LAB URINE ORDERABLES Final Resul t [facility] [address] [place] [phone] * Hematoxylin and Eosin Stain (06/11/2025 11:24 AM EDT) 06/11/2025 11:2 4 AM EDT 06/11/2025 2:20 PM EDT Ana [facility] - 06/12/2025 12:27 PM EDT ----- ------- Name: Maryann Tan Age/Sex: 55/F : 1970 Unit#: [id number] Attend Dr: Delbert Simons MD Re06/11/25 Status: DEP REF Location: [facility] Disch: ----- ------- SPEC : [id number] RECD: 06/11/25 STATUS: ELIZABETH LUND NUM: [id number] EILEEN: 06/11/[address] [facility] [address]: Delbert Simons MD ENTERED: 06/11/25 SP [...] microscopic examination, 1 piece in cassette B. ([facility]) Special studies ordered and performed: PAS-F on A1 and B1. IHC S/NG Disclaimer NOTE: Unless otherwise stated, all tissue is formalin-fixed and paraffin-embedded. Some or all of the immunohistochemical tests reported herein may have been developed and their performance characteristics determined by [facility]. They have not been [...] Maryann Tan Age/Sex: 55/F : 1970 Unit#: [id number] Attend Dr: Delbert Simons MD Re06/11/25 Status: DEP REF Location: HO.LNP Disch: ----- ------- SPEC : [id number] RECD: 06/11/25 STATUS: ELIZABETH LUND NUM: [id number] EILEEN: 06/11/[address] [facility] [address]: Delbert Simons MD ENTERED: 06/11/25 SP TYPE: Surgical OTHR DR: Cedric Liao MD ORDERED: SANDRA Stain/6, Gross Micro L4/2, Specials Gr. 1/2, PASF/2 Copies To: Cedric Liao MD [address] [place] [phone] Delbert Simons MD [facility] Services [address] [place] [address] [address] [place] [address] [phone] ----- ------- Signed (signature on file) Nithya Barry 06/12/25 1227 ----- ------- END OF REPORT us Generic External Data Provider LAB BLOOD ORDERAB LES Final Result [facility] [address] [place] [phone] * BI Mammogram Screening Tomosynthesis Bilateral (05/28/2025 10:12 AM EDT) Anatomical Region Laterality Modality Breast Bilateral Mammography 05/28/2025 10:1 2 AM EDT Narrative 06/10/2025 9:26 AM EDT [address] [place] [address] Mammography Report Signed Patient: Maryann Tan MR #: [id number] : 1970 Acct:[id number] Age/Sex: 55 / F ADM Date: 05/28/25 Loc: HO.MAMMO Attending Dr: Cedric Liao MD Ordering Physician: Cedric Liao MD Results: 1Negative Date of Service: 05/28/25 Follow Up: 1 Year From Orig ina Mammogram Procedure(s): MM tomosynthesis screening BI Accession Number(s): [id number] cc: Cedric Liao MD EXAMINATION: MM SCREENING [...] 06/10/25 0923 DD/ 1012 TD/TT: 05/28/25 1025 Tuck Pointer: Procedure Note Donotuseinterpreter, Image - 06/10/2025 [facility] [address] [place] [address] Mammography Report Signed Patient: Maryann Tan AMR #: [id number] : 1970Acct:[id number] Age/Sex: 55 / FADM Date: 05/28/25 Loc: HOVeroMAMMO Attending Dr: Cedric Liao MD Ordering Physician: Cedric Liaoults: 1Negative Date of Service: 05/28/25Follow Up: 1 Year From Orig ina Mammogram Procedure(s): MM tomosynthesis screening BI Accession Number(s): [id number] cc: Cedric Liao MD EXAMINATION: MM SCREENING [...] 06/10/25 0923 DD/ 1012 TD/TT: 05/28/25 1025 Tuck Pointer: us Cedric Liao MD IMG BI PROCEDURES Final Result * Hepatitis C Antibody with Reflex to HCV, RNA, Quantitative, Real-Time PCR (10/03/2024 11:20 AM EST) Hepatitis C Antibody Nonreactive Nonreactive [facility] Comment:Antibodies to HCV no t detected; does not exclude early acuteHCV infection. Blood Venous blood specimen / Unknown 10/03/2024 11:20 AM EST 10/03/2024 1:16 PM EST us Cedric Liao MD LAB BLOOD ORDERABLES Final Resul t [facility] [address] [place] [address] [phone] * HIV-1/2 Antigen and Antibodies, Fourth [...] below the limit ofdetection of this assay.The [employer] HIV Ag/Ab Combo assay result andsupplemental assay results should be interpreted inconjunction with the patient's clinical presentation,history and other laboratory results. If the results areinconsistent with clinical evidence, additional testing issuggested to confirm the result. Blood Venous blood specimen / Unknown 10/03/2024 11:20 AM EST 10/03/2024 1:16 PM EST Cedric Liao MD LAB BLOOD ORDERABLES Final Resul t [facility] [address] [place] [address] [phone] * (ABNORMAL) Colonoscopy (07/21/2023) Colonoscopy Abnormal(A ) Normal Cedric Liao MD HEALTH MAINTENANCE Final Result * Pap Smear (12/24/2019) Pap Negative for intraephithelial lesion or malignancy Negative for intraephithelial lesion or malignancy, Other HPV Undetected 12/24/2019 [facility] Provider HEALTH MAINTENANCE Final Result from Last 3 Months or Most Recently Relevant to Health Maintenance Insurance [facility] PART[facility] (MEDICAID) [address] [place] [phone] Care Teams Pea Viner Mechanic Relationship Specialty Start Date End Date Name, MD Cedric [address] [place] [phone] PCP - General Family Medicine 04/06/16
--- OUTSIDE RECORDS SUMMARY | 2025-08-29 14:52 | XMS_ITS | Encounter Summary ---
Author Organization [employer] Address [address] [facility] 7 [place] [address] Care Team Providers Care Lining Brusher Name Role Phone Name, Cedric NICK Primary Care Provider [phone] Encounter Details Date Type Department Care Team (Late st Contact Info) Description 04/25/2023 Abstract [facility] [address] [place] [address] Name, MD Cedric [address] [place] [address] Social History Tobacco Use Types Packs/Day Years [...] Description 09/18/2025 3:00 PM EST Office Visit [facility] [address] [place] [address] Iza Dial [address] [place] [address] 09/26/2025 10:30 AM EST Office Visit [facility] [address] [place], [place] [phone] Name, MD Cedric [address] [place] [address] documented as of this encounter Procedures Procedure [...] EDT Recommended 5 year [place] ( [facility] us Historical Provider HEALTH MAINTENANCE Final Result documented in this encounter Visit Diagnoses Not on filedocumented in this encounter Additional Health Concerns Assessment Noted Time PHQ-9 Depression Total Score: 0 11/19/19 23 1:50 PM EST documented as of this encounter Care Teams Lining Brusher Relationship Specialty Start Date End Date Name, [place] [address] PCP - General Family Medicine 04/06/16 documented as of this encounter
--- OUTSIDE RECORDS SUMMARY | 2025-08-29 14:52 | XMS_ITS | Encounter Summary ---
Author Organization [employer] Address [address] [facility] 7t [place] [address] Care Team Providers Care Inside Barrel Polisher Name Role Phone Name, Cedric NICK Primary Care Provider [phone] Reason for Visit * Reason Comments Med Refill Encounter Details Date Type Department Care Team ([facility] st Contact Info) Description 04/23/2025 Refill [facility] [address] [place] [address] [phone] Name, MD Cedric [address] [place] [address] Social History Tobacco Use Types Packs/Day Years [...] Description 09/18/2025 3:00 PM EST Office Visit [facility] [address] [place] [address] Jayro, Iza [address] [place] [address] 09/26/2025 10:30 AM EST Office Visit [facility] [address] [place] [address] Name, MD Cedric [address] [place] [phone] documented as of this encounter Visit Diagnoses Not on filedocumented in this encounter Additional Health Concerns Assessment Noted Time PHQ-9 Depression Total Score: 0 02/20/20 24 10:24 AM EDT documented as of this encounter Care Teams Inside Barrel Polisher Relationship Specialty Start Date End Date Name, MD Cedric [address] [place] [phone] PCP - General Family Medicine 04/06/16 documented as of this encounter
--- OUTSIDE RECORDS SUMMARY | 2025-08-29 14:52 | XMS_ITS | Encounter Summary ---
Author Organization [facility] Address [address] [facility] [address] [place] [address] Phone Care Team Providers Care Repairer Pump Name Role Phone Name, Cedric NICK Primary Care Provider [phone] Encounter Details Date Type Department Care Team (Late Contact Info) Description 02/02/2022 Telephone [facility] [address] [facility] [address] [place] [address] Jasiel Oliver, [address] [address] Social History Tobacco Use Types Packs/Day Years [...] send to Dr Liao. Thank you FAX# [phone] documented in this encounter Plan of Treatment Upcoming Encounters Date Type Department Care Team (Late Contact Info) Description 09/20/2025 Orders Only [facility] [address] [facility] [address] [place] [address] Buddy Ortiz MD [address] [facility] [address] [place] [address] Nephrolithiasis; Proteinuria, not otherwise specified; Vitamin D deficiency, not otherwise specified 09/23/2025 10:00 AM EST Office Visit [facility] [address] [id number] Buddy Ortiz MD [address] [place] [phone] documented as of this encounter Visit Diagnoses Not on filedocumented in this encounter Care Teams Repairer Pump Relationship Specialty Start Date End Date Name, MD Cedric [address] [place] [address] PCP - General Internal Medicine 02/02/22 documented as of this encounter
[2025-08-29 15:12] VITALS: BP 112/69; PULSE 91; RESP 16; TEMP 36.5; O2SAT 97
== END 2025-08-29 15:12 | disposition home or self-care (01) ==
PROVIDERS: Physician Assistant; Emergency Provider Emergency Medicine; PCP Internal Medicine Geriatric Medicine
DX: K57.32 Diverticulitis of large intestine without perforation or abscess without bleeding (principal); N39.0 Urinary tract infection, site not specified; R50.9 Fever, unspecified; R10.32 Left lower quadrant pain; R35.0 Frequency of micturition; M54.50 Low back pain, unspecified; R39.15 Urgency of urination; R11.0 Nausea; Z11.52 Encounter for screening for COVID-19; Z79.899 Other long term (current) drug therapy
CPT/HCPCS: 36415; 74176; 80053; 81001; 81025; 83605; 84702; 85025; 87040; 87086; 87147; 87502; 87635; 96361; 96365; 96367; 96375; 99284; 99285; J1836; J1885; J1956

== ENCOUNTER → 2025-08-29 11:06 | Outpatient (BNV) | payer OTHER, SELFPAY | PROVIDERS: Emergency Provider Emergency Medicine; PCP Internal Medicine Geriatric Medicine; Visit Provider Radiology Diagnostic Radiology | DX: K57.32 Diverticulitis of large intestine without perforation or abscess without bleeding (principal); R16.0 Hepatomegaly, not elsewhere classified; K76.0 Fatty (change of) liver, not elsewhere classified | CPT/HCPCS: 74176 ==

== ENCOUNTER 2025-09-06 16:58 | Emergency (ER) | payer OTHER, SELFPAY ==
--- NOTE | ~2025-09-06 | XR_ITS ---
CLINICAL HISTORY: eval for effusion, no injury 4 view right knee Comparison: CR/SR - XR KNEE RT 4V - 02/05/25 13:32 EDT Findings: Bones intact. No dislocations. Mild degenerative change. Moderate joint effusion. No radiopaque foreign body. IMPRESSION: Moderate joint effusion. This document has been electronically signed by: Samantha Rodriguez MD on 09/06/2025 19:14:51
[2025-09-06 17:12] VITALS: BP 120/74; PULSE 98; RESP 18; TEMP 36.4; O2SAT 99; BMI 23.3
--- NOTE | 2025-09-06 17:14 | ED.GENADULT ---
HPI - General Adult General Chief complaint: Extremity Problem Stated complaint: R leg swelling Time Seen by Provider: 09/06/25 18:59 Source: patient and family Mode of arrival: ambulatory Limitations: language barrier (Turkish speaking only) History of Present Illness ED Provider: Dr. 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 Patient denies any injury. She states she has had similar swelling every 4 months for the past 12 years. She states that she has had her joint drained in the past and she also has seen a moisture machine tender in the past. Patient was seen by Dr. 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 The note states that the patient required synovectomy and possible adjacent radiation therapy which is not done at this facility and the patient needs to be referred to an orthopedic title curative specialist (this has not a cancerous condition). Patient states that she has taken Tylenol for the pain with some relief. Patient was recently diagnosed with diverticulitis 08/29/2025, treated with Levaquin and Flagyl IV and discharged home with a prescription for metronidazole b.i.d. x7 days and levofloxacin 500 mg x 6 days. She was also prescribed naproxen you for her pain. She states that her abdominal pain is gotten significantly better but she still is having some mild left lower quadrant pain Related Data Home Medications ?Medication ?Instructions ?Recorded ?Confirmed lisinopril 10 mg tablet 10 mg PO DAILY 09/14/22 05/07/25 levothyroxine 75 mcg tablet 1 tab PO DAILY 12/23/22 05/07/25 empagliflozin 10 mg tablet 10 mg PO DAILY 03/13/25 05/07/25 (Jardiance) Previous Rx's ?Medication ?Instructions ?Recorded terconazole 0.8 % vaginal cream 1 appful vaginal BEDTIME 3 days 11/21/23 #20 grams hydrocortisone 2.5 % topical cream 1 appl SC BID-QID PRN hemorrhoids 12/06/23 with perineal applicator #30 grams (Proctosol HC) docusate sodium 100 mg capsule 200 mg (2 x 100 mg) PO BEDTIME 09/27/24 #180 caps polyethylene glycol 3350 17 17 g PO DAILY #510 grams 08/10/24 gram/dose oral powder (Miralax) acetaminophen 500 mg tablet 500 mg PO Q6H PRN fever or pain 02/02/25 #30 tabs bisacodyl 5 mg tablet,delayed 10 mg (2 x 5 mg) PO DAILY #180 tabs 03/13/25 release benzonatate 100 mg capsule 100 mg PO BID PRN cough #10 caps 05/17/25 clobetasol 0.05 % topical cream 1 appl topical BID 2 weeks #45 07/04/25 grams carbamide peroxide 6.5 % ear drops 5 drp otic (ear) right DAILY 4 07/27/25 (Debrox) days #15 mL levofloxacin 500 mg tablet 500 mg PO DAILY #6 tabs 08/29/25 metronidazole 500 mg tablet 500 mg PO BID 7 days #14 tabs 08/29/25 naproxen 500 mg tablet 500 mg PO BID PRN pain #14 tabs 08/29/25 hydrocortisone acetate 25 mg 25 mg SC BID #24 ea 08/30/25 rectal suppository (Anucort-HC) acetaminophen 500 mg tablet 1,000 mg (2 x 500 mg) PO Q6H PRN 09/06/25 (Tylenol Extra Strength) pain #20 tabs ibuprofen 400 mg tablet 400 mg PO TID PRN fever or pain 09/06/25 #30 tabs ondansetron 4 mg disintegrating 4 mg PO Q6-8H PRN nausea and 09/06/25 tablet vomiting #14 tabs Allergies Allergy/AdvReac Type Severity Reaction Status Date / Time ceftriaxone Allergy Severe Anaphylaxis Verified 09/06/25 17:14 Iodinated Contrast Media (IV Allergy Severe Anaphylaxis Verified 09/06/25 17:14 Contrast Dye) magnesium hydroxide (From Allergy Intermediate Rash Verified 09/06/25 17:14 Milk of Magnesia) [facility] Past Medical History [facility] Narrative: Social history: She denies tobacco, alcohol and drug use. Medical History Hemorrhoids with complication Endometrial hyperplasia Heartburn GERD (gastroesophageal reflux disease) Skin lesion of back Kidney stone Vitamin D deficiency Hypothyroidism Surgical History Hx of ventral hernia repair (05/31/24) Hx of unilateral oophorectomy History of surgery Tubal ligation status Hx of colonoscopy Hx of esophagogastroduodenoscopy Family History Family History Father Hypertension Respiratory failure Mother Pancreatic cancer Social History Social History Household Members: Spouse Housing: Apartment Are you a primary director of managed care to a significant other at home: No Do you presently have visiting nurse or other home services: No Alcohol intake: never Patient Tobacco Use Status: Never used Tobacco Second Hand Smoke Exposure: No Advance Directives: No Advance Directives Information Provided: No service: No Current occupational status: employed Current occupation: [employer] program Sexual orientation: Straight/Heterosexual Gender identity: Female Physical Exam ED Vital Signs: Vital Signs - 24 hr 09/06/25 17:12 Temperature 97.5 F Pulse Rate 98 Respiratory Rate 18 Blood Pressure 120/74 Pulse Oximetry 99 Oxygen Delivery Method Room Air BMI result Body Mass Index 23.3 Vital signs were normal Exam: General: Awake, alert in no distress Head: Normocephalic, atraumatic EENT: PERRL, sclera and conjunctiva are normal, mouth with no erythema or exudates Neck: Supple, no adenopathy Lung: breath sounds symmetric, no wheezing, no rales and no rhonchi Chest: symmetric movement, nontender Heart: regular rate and rhythm, normal S1, S2 no murmurs or rubs Abdomen: soft, mild left lower quadrant tenderness, no rebound, nondistended, normal bowel sounds Back: no vertebral tenderness, no CVAT Extremities: Mild to moderate left knee joint effusion, no increased warmth or surrounding erythema, pain with palpation over the effusion and pain with flexion of the knee. Patient has atrophy of her calf muscle and a deformed foot (since childhood) Neuro: Awake, alert, oriented, normal speech, moves all extremities symmetrically Psych: Pleasant, cooperative Course Course Course Narrative: Marichuy Roa APRN 09/06/25 [id number] This is a rapid medical exam. Defer additional HPI, ROS and PE to primary provider. 55-year-old female here with right knee swelling since yesterday. Patient reports history of same. No fall or injury. Has been seen by ortho before for arthrocentesis. 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 Patient denies any injury. She states she has had similar swelling every 4 months for the past 12 years. She states that she has had her joint drained in the past and she also has seen a moisture machine tender in the past. Patient was seen by Dr. 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 The note states that the patient required synovectomy and possible adjacent radiation therapy which is not done at this facility and the patient needs to be referred to an orthopedic title curative specialist (this has not a cancerous condition). Vital signs were normal. Exam did reveal right knee joint effusion with no increased warmth erythema, pain with palpation and flexion of the knee. Patient has atrophy right calf muscle with a deformed foot since childhood. Patient had mild left lower quadrant tenderness consistent with resolving diverticulitis. Differential diagnosis: ?Includes but is not limited to gout, inflammatory arthritis, septic arthritis Course: 20:01 Given the patient's diagnosis of pigmented villonodular synovitis, I do not think that the patient needs arthrocentesis. I did discuss this with the patient patient and the patient's daughter. They told me that they are seeing an case manager specialist at [place] November 2025. The patient was recently on levofloxacin for her diverticulitis therefore I will not prescribe steroids. Patient was taking naproxen for abdominal pain but she states that cause nausea and she does not want another prescription for this medication. Patient was prescribed ibuprofen 400 mg 3 times a day as needed for pain, she was also given a prescription for Concepcion's Zofran ODT 4 mg q.6 hours as needed for nausea and vomiting. She was advised to apply ice for 15 minutes 4 to 6 times a day and to keep her knee elevated. She was also given a work note, printed and verbal instructions and discharged home. Differential Diagnosis Differential Diagnoses: The differential diagnosis associated with the presentation includes (See above) Admission/Observation Consideration of admission/observation: Escalation of care including admission/observation considered (No) Independent Interpretation I performed an independent interpretation of an: Plain X-Ray Interpretation: My independent interpretation patient's right knee x-ray is as follows: No acute fracture seen Radiology Impression Discussion of test interpretation with radiology: I have reviewed the radiologist's reading. Radiologist Impression: 4 view right knee Comparison: CR/SR - XR KNEE RT 4V - 02/05/25 13:32 EDT Findings: Bones intact. No dislocations. Mild degenerative change. Moderate joint effusion. No radiopaque foreign body. IMPRESSION: Moderate joint effusion. This document has been electronically signed by: Samantha Rodriguez MD on 09/06/2025 19:14:51 Discharge Plan Discharge Clinical Impression: Inflammation of joint of right knee Pigmented villonodular synovitis of knee Qualifiers: Laterality: right Qualified Code(s): M12.261 - Villonodular synovitis (pigmented), right knee Patient Disposition: Home, Self-Care Additional Instructions: Take ibuprofen 400 mg pills, 1 pills every 6 hours as needed for pain or fever. Take Tylenol (acetaminophen) 500 mg pills, 2 pills every 6 hours as needed for pain or fever. Take Zofran ODT 4 mg pills, 1 pill dissolved in your mouth every 8 hours as needed for nausea and vomiting. Apply ice for 15 minutes 4 to 6 times a day to help reduce the swelling in your knee. Do this for 3-4 days. Keep your knee elevated to help reduce the swelling as well. Follow-up with your doctor in 2 days. Please return to the emergency department if your symptoms get worse or if you develop any symptoms that are concerning to you. Prescriptions: New acetaminophen [Tylenol Extra Strength] 500 mg tablet 1,000 mg PO Q6H PRN (Reason: pain) Qty: 20 0RF ibuprofen 400 mg tablet 400 mg PO TID PRN (Reason: fever or pain) Qty: 30 0RF ondansetron 4 mg tablet,disintegrating 4 mg PO Q6-8H PRN (Reason: nausea and vomiting) Qty: 14 0RF No Action hydrocortisone acetate [Anucort-HC] 25 mg suppository 25 mg SC BID Qty: 24 2RF levothyroxine 75 mcg tablet 1 tab PO DAILY acetaminophen 500 mg tablet 500 mg PO Q6H PRN (Reason: fever or pain) Qty: 30 0RF Debrox 6.5 % drops 5 drp otic (ear) right DAILY 4 Days Qty: 15 0RF metronidazole 500 mg tablet 500 mg PO BID 7 Days Qty: 14 0RF levofloxacin 500 mg tablet 500 mg PO DAILY Qty: 6 0RF naproxen 500 mg tablet 500 mg PO BID PRN (Reason: pain) Qty: 14 0RF benzonatate 100 mg capsule 100 mg PO BID PRN (Reason: cough) Qty: 10 0RF lisinopril 10 mg tablet 10 mg PO DAILY hydrocortisone [Proctosol HC] 2.5 % cream with perineal applicator 1 appl SC BID-QID PRN (Reason: hemorrhoids) Qty: 30 2RF terconazole 0.8 % cream 1 appful vaginal BEDTIME 3 Days Qty: 20 0RF clobetasol 0.05 % cream 1 appl topical BID 14 Days Qty: 45 1RF Rx Instructions: Then maintenance therapy for 2-3 times per week docusate sodium 100 mg capsule 200 mg PO BEDTIME Qty: 180 3RF polyethylene glycol 3350 [Miralax] 17 gram/dose powder 17 g PO DAILY Qty: 510 2RF Jardiance 10 mg tablet 10 mg PO DAILY bisacodyl 5 mg tablet,delayed release (DR/EC) 10 mg PO DAILY Qty: 180 3RF Print Language: Turkish
[2025-09-06 20:40] VITALS: BP 122/76; PULSE 88; RESP 18; TEMP 36.7; O2SAT 97
[2025-09-06 20:45] VITALS: BP 122/76; PULSE 88; RESP 18; TEMP 36.7; O2SAT 97
[2025-09-06 20:46] VITALS: BP 122/76; PULSE 88; RESP 18; TEMP 36.7; O2SAT 97
== END 2025-09-06 20:46 | disposition home or self-care (01) ==
PROVIDERS: Emergency Provider Emergency Medicine Emergency Medical Services; PCP Internal Medicine Geriatric Medicine
DX: M12.261 Villonodular synovitis (pigmented), right knee (principal); R60.0 Localized edema; M25.561 Pain in right knee; Z79.899 Other long term (current) drug therapy
CPT/HCPCS: 73564; 99283; 99284

== ENCOUNTER → 2025-09-06 17:13 | Outpatient (BNV) | payer OTHER, SELFPAY | PROVIDERS: Emergency Provider Emergency Medicine Emergency Medical Services; PCP Internal Medicine Geriatric Medicine; Visit Provider Nuclear Medicine | DX: M25.461 Effusion, right knee (principal) | CPT/HCPCS: 73564 ==

== ENCOUNTER → 2025-09-10 12:23 | Outpatient (REF) | payer OTHER, SELFPAY ==
--- OUTSIDE RECORDS SUMMARY | 2025-09-10 13:30 | XMS_ITS | Encounter Summary ---
Author Organization [employer] Address [address] [facility] 7 [place] [address] Care Team Providers Care Electromechanisms Design Drafter Name Role Phone Name, Cedric NICK Primary Care Provider [phone] Reason for Referral * Medications - Closed Specialty Diagnoses / Procedures Referred By Stefan aly Referred To Contact Diagnoses Acute pain of right knee Pigmented villonodular synovitis of right knee Grace Ramsey NP [address] [place] [address] Phone: tel: fax: Referral ID Status Reason Start Date Expiration Date Visits Re quested Visits Authorized [id number] Closed 1 1 * Consultation (STAT) - Pending Review Specialty Diagnoses / Procedures Referred By Stefan aly Referred To Contact Orthopaedic Surgery Diagnoses Acute pain of right knee Pigmented villonodular synovitis of right knee Grace Ramsey NP [address] [place] [address] Phone: tel: fax: Referral ID Status Reason Start Date Expiration Date Visits Requested Visits Authorized [id number] Pending Review Specialty Services Required 09/10/2026 1 1 Reason for Visit * Reason Comments sick onsite Encounter Details Date Type Department Care Team ([facility] st Contact Info) Description 09/10/2025 1:30 PM EDT Office Visit [facility] [address] [place] [address] Grace Ramsey, EMULSIFICATION OPERATOR [address] [place] [address] 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); Acute pain of right knee Social History Tobacco Use Types Packs/Day Years [...] Sign Reading Time Taken Comments Blood Pressure 120/90 09/10/2025 1:47 PM EDT Pulse 72 09/10/2025 1:47 PM EDT Temperature 36.7 C (98 F) 09/10/2025 1:47 PM EDT Respiratory Rate 18 09/10/2025 1:47 PM EDT Oxygen Saturation 98% 09/10/2025 1:47 PM EDT Inhaled Oxygen Concentration - - Weight 62.4 kg (137 lb 9.6 oz) 09/10/2025 1:47 P M EDT Height 154.9 cm (5' 1 ) 09/10/2025 1:47 PM EDT Body Mass Index 26 09/10/2025 1:47 PM EDT documented in this encounter Miscellaneous Notes * Assessment & Plan Note - Grace Ramsey NP - 09/10/2025 1:30 PM EDTAssociated Problem(s): Acute pain of right knee Orders: Referral to Orthopaedic Surgery; Future lidocaine (Lidoderm) 5 % patch; Apply 1 patch topically Once per day. Remove & discard patch within 12 hours or as directed by . MRI KNEE RIGHT WO CONTRAST; Future CBC auto differential; Future Sed Rate by Modified Westergren; Future C-reactive Protein; Future Basic Metabolic Panel; Future * Assessment & Plan Note - Grace Ramsey NP - 09/10/2025 1:30 PM EDTAssociated Problem(s): Pigmented villonodular synovitis of right knee Orders: Referral to Orthopaedic Surgery; Future lidocaine (Lidoderm) 5 % patch; Apply 1 patch topically Once per day. Remove & discard patch within 12 hours or as directed by . traMADol (Ultram) 50 MG tablet; Take 1 tablet (50 mg) by mouth every 6 (six) hours if needed for severe pain for up to 5 days. MRI KNEE RIGHT WO CONTRAST; Future CBC auto differential; Future Sed Rate by Modified Westergren; Future C-reactive Protein; Future Basic Metabolic Panel; Future documented in this encounter Plan of Treatment Upcoming Encounters Date Type Department Care Team (Late st Contact Info) Description 09/18/2025 3:00 PM EST Office Visit [facility] [address] [place] [address] Jayro, Iza [address] [place] [address] 09/26/2025 10:30 AM EST Office Visit [facility] [address] [place] [address] Name, MD Cedric [address] [place] [address] Scheduled Orders Name Type Priority Associated Diagnoses Orde r Schedule CBC auto differential Lab Routine Acute pain of right knee Pigmented villonodular synovitis of right knee Expected: 09/10/2025 (Approximate), Expires: 09/10/2026 Sed Rate by Modified Westergren Lab Routine Acute pain of right knee Pigmented villonodular synovitis of right knee Expected: 09/10/2025, Expires: 09/10/2026 C-reactive Protein Lab Routine Acute pain of right knee Pigmented villonodular synovitis of right knee Expected: 09/10/2025 (Approximate), Expires: 09/10/2026 Basic Metabolic Panel Lab Routine Acute pain of right knee Pigmented villonodular synovitis of right knee Expected: 09/10/2025 (Approximate), Expires: 09/10/2026 Scheduled Referrals Name Type Priority Associated Diagnoses Orde r Schedule Referral to Orthopaedic Surgery Outpatient Referral STAT Acute pain of right knee Pigmented villonodular synovitis of right knee Expected: 09/10/2025 (Approximate), Expires: 09/10/2026 documented as of this encounter Visit Diagnoses Diagnosis Pigmented villonodular synovitis of right knee- Primary Acute pain of right knee documented in this encounter Additional Health Concerns Assessment Noted Time PHQ-9 Depression Total Score: 0 06/27/20 25 10:35 AM EDT documented as of this encounter Care Teams Electromechanisms Design Drafter Relationship Specialty Start Date End Date Name, [place] [address] PCP - General Family Medicine 04/06/16 documented as of this encounter
--- OUTSIDE RECORDS SUMMARY | 2025-09-10 15:38 | XMS_ITS | Clinical Summary ---
Author Organization [employer] Address [address] [facility] [address] [place] [address] Care Team Providers Care Licensed Clinical Psychologist Name Role Phone Name, Cedric NICK Primary Care Provider [phone] Allergies Active Allergy Reactions Criticality Noted Date [...] AND TAKE ONCE DIRECTED BY [facility] 05/31/20 23 Active Acetaminophen [...] MOUTH EVERY DAY 30 tablet 2 07/10/20 25 Active lidocaine (Lidoderm) 5 % patchIndications:A cute pain of right knee,Pigmented villonodular synovitis of right knee Apply 1 patch topically Once per day. Remove & discard patch within 12 hours or as directed by MD. 30 patch 09/10/20 25 025 Active traMADol (Ultram) 50 MG tabletIndications: Pigmented villonodular synovitis of right knee Take 1 tablet (50 mg) by mouth every 6 (six) hours if needed for severe pain for up to 5 days. 15 tablet 09/10/20 25 Active Active Problems Problem Noted Date Diagnosed Date Pigmented villonodular synovitis of right knee 0 06/27/2025 Assessment & Plan (09/10/2025 2:55 PM EDT): Orders: Referral to Orthopaedic Surgery; Future lidocaine [...] C-reactive Protein; Future Basic Metabolic Panel; Future Acute pain of right knee 02/05/2025 Assessment & Plan (09/10/2025 2:55 PM EDT): Orders: Referral to Orthopaedic Surgery; Future lidocaine (Lidoderm) 5 % patch; Apply 1 patch topically Once per day. Remove & discard patch within 12 hours or as directed by . MRI KNEE RIGHT WO CONTRAST; Future CBC auto differential; Future Sed Rate by Modified Westergren; Future C-reactive Protein; Future Basic Metabolic Panel; Future Assessment & Plan (02/05/2025 1:05 PM EDT): Patient of Dr. Liao here with c/o new onet of right knee pain. Seen at [facility] 02/02/2025. Work up included a RLE [...] Encounters Date Type Department Care Team Description 09/10/2025 1:30 PM EDT Office Visit [facility] [address] [place] [address] Grace Ramsey NP 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); Acute pain of right knee 09/10/2025 Travel 09/09/2025 Patient Outreach [facility] [address] [place] [address] Cedric Liao MD 09/09/[address] [address] Cedric Liao MD ER Follow-up 09/05/[address] [address] Cedric Liao MD Nurse Triage 08/30/[address] [address] Cedric Liao MD Nurse Triage 08/29/2025 Orders Only GENERIC EXTERNAL DATA DEPARTMENT Provider, Generic External Data 07/19/2025 9:40 AM EDT Office Visit [facility] [address] [place] [phone] David Hebert MD Acute pain of both shoulders (Primary Dx) 07/19/2025 Travel 07/09/[address] [address] Cedric Liao MD 06/27/2025 10:30 AM EDT Office Visit [address] [address] Cedric Liao MD Proteinuria, unspecified type (Primary Dx); Pigmented villonodular synovitis of right knee 06/27/2025 Travel 06/26/[address] [address] Jen Muñoz MA Chart Prep 06/11/2025 Orders [...] Mass Index 26 09/10/2025 1:47 PM EDT Plan of Treatment Upcoming Encounters Date Type Department Care Team (Late st Contact Info) Description 09/18/2025 3:00 PM EST Office Visit [facility] AD[facility] DENTAL [address] [place] [address] Iza Dial [address] [place] [address] 09/26/2025 10:30 AM EST Office Visit [facility] [address] [place] [address] Name, MD Cedric [address] [place] [address] Health Maintenance Due Date Last Done Comments [...] Mouth 04/02/2025 04/01/2022, 11/2015 COVID-19 Vaccine ( season) 2025 04/21/2021, [...] XR KNEE 4+ VIEWS RIGHT Routine 5 7:14 PM EDT LACTIC ACID Routine 08/29/2025 11:54 AM EDT BLOOD CULTURE (SECOND) Routine 11:54 AM EDT BLOOD CULTURE (FIRST) Routine 08/29/2025 11:[address] ABDOMEN PELVIS WO CONTRAST Routine 08/29/2025 11:40 AM EDT HCG, QL, URINE Routine 08/29/2025 11:35 AM EDT HCG, TOTAL, QN Routine 08/29/2025 11:19 AM EDT COMPREHENSIVE METABOLIC PANEL Routine 08/29/2025 11:19 AM EDT CBC WITH AUTO DIFFERENTIAL Routine 08/29/2025 11:19 AM EDT COVID-19 ID NOW (Jawbone) Routine 08/29/2025 11:16 AM EDT URINALYSIS, COMPLETE, WITH REFLEX TO CULTURE Routine 08/29/2025 11:16 AM EDT INFLUENZA A B2 ID NOW (TIMMONS) Routine 08/29/2025 11:16 AM EDT CULTURE, URINE, ROUTINE Routine 08/29/2025 12:00 AM EDT BASIC METABOLIC PANEL Routine 06/27/2025 [...] Results * XR Knee 4+ Views Right (09/06/2025 7:14 PM EDT) Anatomical Region Laterality Modality Lower Extremities, Knee Right Radiogra phic Imaging 09/06/2025 7:14 PM EDT Narrative 09/06/2025 7:16 PM EDT [place] [address] XRay Report Signed Patient: Maryann Tan MR #: [id number] : 1970 Acct:[id number] Age/Sex: 55 / F ADM Date: 09/06/25 Loc: HO.ED Attending Dr: Ordering Physician: Marichuy Roa NP Date of Service: 09/06/25 Procedure(s): XR knee RT 4V Accession Number(s): [id number] cc: Name,Cedric NICK; Marichuy Roa NP Reason for Exam: eval for effusion, no injury CLINICAL HISTORY: eval for effusion, no injury 4 view right knee Comparison: CR/SR - XR KNEE RT 4V - 02/05/25 13:32 EDT Findings: Bones intact. No dislocations. Mild degenerative change. Moderate joint effusion. No radiopaque foreign body. IMPRESSION: Moderate joint effusion. This document has been electronically signed by: Samantha Rodriguez MD on 09/06/2025 19:14:51 Dictated By: Samantha Rodriguez MD Signed By: <Electronically signed by Samantha Rodriguez MD in OV> 09/06/251914 DD/ 13 TD/TT: 09/06/251913 Dynamo Repairer: Procedure Note Donottorsteninterpreter, Image - 09/06/[address] [address] XRay Report Signed Patient: Maryann Tan AMR #: [id number] : 1970Acct:[id number] Age/Sex: 55 / FADM Date: 09/06/25 Loc: HO.ED Attending Dr: Ordering Physician: Marichuy Roa NP Date of Service: 09/06/25 Procedure(s): XR knee RT 4V Accession Number(s): [id number] cc: Name,Cedric NICK; Marichuy Roa NP Reason for Exam: eval for effusion, no injury CLINICAL HISTORY: eval for effusion, no injury 4 view right knee Comparison: CR/SR - XR KNEE RT 4V - 02/05/25 13:32 EDT Findings: Bones intact. No dislocations. Mild degenerative change. Moderate joint effusion. No radiopaque foreign body. IMPRESSION: Moderate joint effusion. This document has been electronically signed by: Samantha Rodriguez MD on 09/06/2025 19:14:51 Dictated By: Samantha Rodriguez MD Signed By: <Electronically signed by Samantha Rodriguez MD in OV> 09/06/251914 DD/ 13 TD/TT: 09/06/251913 Dynamo Repairer: [facility] External Provider IMG XR PROCEDURES Final Result * Blood Culture (First) (08/29/2025 11:54 AM EDT) Blood Venous blood specimen / Unknown 08/29/2025 11:54 AM EDT 08/29/2025 12:01 PM EDT Comment:Blood Narrative [facility] - 09/03/2025 2:02 PM EDT Blood Culture (First) No growth after 5 days. Specimen Source: Blood Generic External Data Provider LAB MICROBIOLOGY - GENERAL ORDERABLES Final Result [facility] [address] [place] [phone] * Blood Culture (Second) (08/29/2025 11:54 AM EDT) Blood Venous blood specimen / Unknown 08/29/2025 11:54 AM EDT 08/29/2025 12:59 PM EDT Comment:Blood Narrative [facility] - 09/03/2025 2:59 PM EDT Blood Culture (Second) No growth after 5 days. Specimen Source: Blood Generic External Data Provider LAB MICROBIOLOGY - GENERAL ORDERABLES Final Result Performing Organization Address [facility] Co de Phone Number [facility] [address] [place] [phone] * Lactic Acid (08/29/2025 11:54 AM EDT) Lactic Acid 1.5 0.5 - 2.0 mmol/L [facility] 08/29/2025 11:5 4 AM EDT 08/29/2025 12:01 PM EDT Generic External Data Provider LAB BLOOD ORDERAB LES Final Result Performing Organization Address [facility] de Phone Number [facility] [address] [place] [phone] * CT Abdomen Pelvis w/o Contrast (08/29/2025 11:40 AM EDT) Anatomical Region Laterality Modality Body, Pelvis, Abdomen Computed T omography 08/29/2025 11:4 0 AM EDT Narrative 08/29/2025 12:10 PM EDT [address] [address] [address] Scan Report Signed Patient: Maryann Tan MR #: [id number] : 1970 Acct:[id number] Age/Sex: 55 / F ADM Date: 08/29/25 Loc: HO.ED Attending Dr: Ordering Physician: Galindo Stephens Date of Service: 08/29/25 Procedure(s): CT abdomen pelvis wo IV con Accession Number(s): [id number] cc: Galinod Stephens; Name,Cedric NICK Report Number: [id number]: Total DLP = 420.00 mGy-cm Reason for [...] 08/29/25 1207 DD/ 1140 TD/TT: 08/29/25 1150 Dynamo Repairer: Procedure Note Donotuseinterpreter, Image - 08/29/[address] [place] [address] [address] Scan Report Signed Patient: Maryann Tan AMR #: [id number] : 1970Acct:[id number] Age/Sex: 55 / FADM Date: 08/29/25 Loc: HO.ED Attending Dr: Ordering Physician: Galindo Stephens Date of Service: 08/29/25 Procedure(s): CT abdomen pelvis wo IV con Accession Number(s): [id number] cc: Galindo Stephens; Name,Cedric NICK Report Number: [id number]: Total DLP = 420.00 mGy-cm Reason for [...] 08/29/25 1207 DD/ 1140 TD/TT: 08/29/25 1150 Dynamo Repairer: [facility] External Provider IMG CT PROCEDURES Edited Result - Final * HCG, Qualitative, Urine (08/29/2025 11:35 AM EDT) Pathologist [facility] Urine NEGATIVE NEGATIVE [facility] Comment:This test was develo ped to detect early . Falsenegative results may occur after the 5th - 7th week ofpregnancy when using this test method. If clinicallyindicated, consider a serum hCG. 08/29/2025 11:3 5 AM EDT 08/29/2025 11:37 AM EDT Generic External Data Provider LAB URINE ORDERAB LES Final Result [facility] [address] [place] [phone] * (ABNORMAL) CBC auto differential (08/29/2025 11:19 AM EDT) Pathologist [facility] White Blood Count 11.9(H) 4.8 - 10.8 X10*3/uL [facility] Red Blood Count 4.60 4.20 - 5.50 X10*6/uL [facility] Hemoglobin 13.0 12.0 - 16.0 g/dl [facility] Hematocrit 40.0 37.0 - 47.0 % [facility] Mean Corpuscular Volume 87.0 80.0 - 98.0 fL [facility] Mean Corpuscular Hemoglobin 28.3 27.0 - 33.0 pg [facility] Mean Corpuscular HGB Conc 32.5 31.0 - 35.0 g/dl [facility] Red Cell Distribution Width 13.2 11.0 - 16.0 % [facility] Platelet Count 162 160 - 400 X10*3/uL [facility] Mean Platelet Volume 13.0(H) 9.4 - 12.3 fL [facility] Neutrophils Percent Auto 73.1(H) 45 - 73 % [facility] Imm Gran Pct Auto 0.7(H) 0.0 - 0.4 % [facility] Lymphocytes Percent Auto 16.6(L) 20 - 40 % [facility] Monocytes Percent Auto 8.7 2 - 11 % [facility] Eosinophils Percent Auto 0.3 0 - 4 % [facility] Basophils Percent Auto 0.6 0 - 2 % [facility] NRBC Pct Auto 0.0 0.0 - 0.2 /100WBC [facility] Neutrophils Absolute Auto 8.7(H) 2.0 - 8.3 x10*3/uL [facility] Imm Gran Abs Auto 0.08(H) 0.00 - 0.03 X10*3/uL [facility] Lymphocytes Absolute Auto 2.0 1.2 - 4.9 X10*3/uL [facility] Monocytes Absolute Auto 1.0 0.1 - 1.2 X10*3/uL [facility] Eosinophils Absolute Auto 0.0 0.0 - 0.4 X10*3/uL [facility] Basophils Absolute Auto 0.1 0.0 - 0.2 X10*3/uL [facility] NRBC Abs Auto 0.000 0.0 - 0.012 X10*3/uL [facility] 08/29/2025 11:1 9 AM EDT 08/29/2025 11:22 AM EDT us Generic External Data Provider LAB BLOOD ORDERAB LES Final Result [facility] [address] [place] [phone] * hCG, Total, Quantitative (08/29/2025 11:19 AM EDT) HCG Quantitative 5 mIU/mL [facility] Comment:Weeks post LMP Appro ximate hCG(Last Menstrual Period) Range (mIU/ml)3 - 4 weeks 9 - 1304 - 5 weeks 75 - 2,6005 - 6 weeks 850 - 20,8006 - 7 weeks 4000 - 100,2007 - 12 weeks 11,500 - 289,85785 - 16 weeks 18,300 - 137,32576 - 29 weeks (2nd trimester) 1,400 - 53,75703 - 41 weeks (3rd trimester) 940 - [...] BLOOD ORDERAB LES Final Result [facility] [address] [place] [phone] * (ABNORMAL) Comprehensive Metabolic Panel (08/29/2025 11:19 AM EDT) Sodium 138 135 - 145 mmol/L [facility] Potassium 4.0 3.3 - 5.1 mmol/L [facility] Chloride 102 96 - 108 mmol/L [facility] Carbon Dioxide 27 22 - 29 mmol/L [facility] Anion Gap 13 12 - 20 [facility] Urea Nitrogen (BUN) 11 9 - 16 mg/dL [facility] Creatinine, Serum 0.82 0.5 - 1.4 mg/dL [facility] Creatinine Clr Calc Pharmacy 63.2 [facility] Comment:Provided height and weight: 154.94 cm,60.7 kg.eGFR (calculated from the MDRD study equation) and eCrCl(calculated from the Cockcroft-Gault equation) are based ondifferent parameters and may not yield comparable results.If eCrCl result is absurd, please check patient'sheight/weight. Estimated Glomerular Filt Rate >60 [facility] Comment:Chronic Kidney Disea se: Estimated GFR < 60 mL/min/1.80j8Mmkskk Kidney Disease: Estimated GFR < 15 mL/min/1.73m2 Glucose 98 60 - 115 mg/dL [facility] Calcium 9.8 8.4 - 10.2 mg/dL [facility] Bilirubin, Total 1.4(H) 0.0 - 1.0 mg/dL [facility] Aspartate Amino Transferase 33(H) 5 - 31 U/L [facility] Alanine Aminotransferase 57(H) 0 - 31 U/L [facility] Total Protein 7.7 6.5 - 8.0 g/dL [facility] Albumin Level 4.6 3.5 - 5.0 g/dL [facility] Alkaline Phosphatase 101 39 - 117 U/L [facility] 08/29/2025 11:1 9 AM EDT 08/29/2025 11:22 AM EDT us Generic External Data Provider LAB BLOOD ORDERAB LES Final Result [facility] [address] [place] [phone] * Influenza A B2 ID NOW ([place]) (08/29/2025 11:16 AM EDT) IDNOW SERIAL# [id number] [facility] Influenza A Negative Negative [facility] Influenza B2 Negative Negative [facility] Influenza A B2 Note See Note [facility] Comment:The Timmons ID NOW In [...] GENERAL ORDERABLES Final Result Performing Organization Address City/[facility]/ZIP Co de Phone Number [facility] [address] [place] [phone] * COVID-19 ID NOW ([place]) (08/29/2025 11:16 AM EDT) IDNOW SERIAL# [id number] [facility] COVID-19 TEST Negative Negative [facility] COVID-19 NOTE See Note [facility] Comment: Results are for the identification of SARS-CoV2 RNA. TheSARS-CoV2 RNA is generally detectable in respiratory samplesduring the acute phase of infection. Positive results areindicative of the presence of SARS-CoV-2 RNA; clinicalcorrelation with patient history and other diagnosticinformation is necessary to determine patient infectionstatus. Positive results do not rule out bacterial infectionor co- infection with other viruses.Testing facilities within the [facility] and itsterritories are required to [...] use by authorized laboratories.Testing performed on the Timmons ID NOW utilizing NAAT. 08/29/2025 11:1 6 AM EDT 08/29/2025 11:22 AM EDT us Generic External Data Provider LAB MOLECULAR ROCCO GNOSTICS ORDERABLES Final Result [facility] [address] [place] [phone] * (ABNORMAL) Urinalysis, Complete, with Reflex to Culture (08/29/2025 11:16 AM EDT) Color Urine Yellow [facility] Appearance Urine Clear [facility] PH 6.5 5.0 - 9.0 [facility] Glucose Urine UA Negative Negative mg/dL [facility] Urine Blood Trace(A) Negative [facility] Specific [place] - Urine 1.015 1.005 - 1.025 [facility] Urine Protein 300 (3+)(A) Neg-Trace mg/dL [facility] Urine Ketones Negative Negative mg/dL [facility] Nitrite Urine Negative Negative [facility] Leukocyte Esterase Urine Moderate (2+)(A) Negative [facility] RBC Urine 0-2 0 - 2 /HPF [facility] Urine WBC 21-50(A) 0 - 5 /HPF [facility] Urine Squamous Epithelial Cell 6-10 0 - 2 /HPF [facility] Urine Bacteria None Seen None Seen [facility] Hyaline Casts, Urine 0-2 0 - 2 /LPF [facility] 08/29/2025 11:1 6 AM EDT 08/29/2025 11:22 AM EDT [facility] - 08/29/2025 11:36 AM EDT [id number], Clean Catch us Generic External Data Provider LAB URINE ORDERAB LES Final Result Performing Organization Address [facility]/ZIP Co de Phone Number [facility] [address] [place] [phone] * Culture, Urine, Routine (08/29/2025 12:00 AM EDT) Urine Urine specimen obtained by clean catch procedure / Unknown 08/29/2025 08/29/2025 Comment:UACC Narrative [facility] - 08/30/2025 11:51 AM EDT Strep agalactiae (Grp B) Quant 10,000 to 50,000 cfu/mL Susc N/A Susceptibility not routinely performed on this isolate. Specimen Source: Urine clean catch Generic External Data Provider LAB MICROBIOLOGY - GENERAL ORDERABLES Final Result Performing Organization Address City/[facility] Co de Phone Number [facility] [address] [place] [phone] * Basic Metabolic Panel (06/27/2025 10:40 AM EDT) Sodium 139 135 - 145 mmol/L [facility] Potassium 4.2 3.3 - 5.1 mmol/L [facility] Chloride 103 96 - 108 mmol/L [facility] Carbon Dioxide 28 22 - 29 mmol/L [facility] Anion Gap 12 12 - 20 [facility] Urea Nitrogen (BUN) 13 9 - 16 mg/dL [facility] Creatinine, Serum 0.71 0.5 - 1.4 mg/dL [facility] Estimated Glomerular Filt Rate >60 [facility] Comment:Chronic Kidney Disea se: Estimated GFR < 60 mL/min/1.07j1Rkueve Kidney Disease: Estimated GFR < 15 mL/min/1.73m2 Glucose 81 60 - 115 mg/dL [facility] Calcium 9.4 8.4 - 10.2 mg/dL [facility] Blood Venous blood specimen / Unknown 06/27/2025 10:40 AM EDT 06/27/2025 11:20 AM EDT us Cedric Liao MD LAB BLOOD ORDERABLES Final Resul t Performing Organization Address [facility] Co de Phone Number [facility] [address] [place] [phone] * (ABNORMAL) Albumin, Random Urine W/Creatinine (06/27/2025 12:00 AM EDT) Creatinine, Urine 48.89 mg/dL [facility] Microalbumin Urine 442.0 mg/L [facility] Microalbum Creatinine Ratio Ur 904.0(H) <30 ug/mg cr [facility] Comment:Albumin/Creatinine R atio Reference Ranges: Normal: < 30 ug/mg creatinine Microalbuminuria: 30 - 300 ug/mg creatinineClinical Albuminuria: > 300 ug/mg creatinine Urine (Urine, Random) 06/27/2025 06/27/2025 us Cedric Name LAB URINE ORDERABLES Final Resul t [facility] [address] [place] [phone] * Hematoxylin and Eosin Stain (06/11/2025 11:24 AM EDT) 06/11/2025 11:2 4 AM EDT 06/11/2025 2:20 PM EDT Narrative [facility] - 06/12/2025 12:27 PM EDT ----- ------- Name: Maryann Tan Age/Sex: 55/F : 1970 Unit#: [id number] Attend Dr: Delbert Simons MD Re06/11/25 Status: DEP REF Location: HO.LNP Disch: ----- ------- SPEC : [id number] RECD: 06/11/25 STATUS: ELIZABETH LUND NUM: [id number] EILEEN: 06/11/25 [facility] DR: Delbert Simons MD ENTERED: 06/11/25 [...] microscopic examination, 1 piece in cassette B. ([facility]) Special studies ordered and performed: PAS-F on A1 and B1. IHC S/NG Disclaimer NOTE: Unless otherwise stated, all tissue is formalin-fixed and paraffin-embedded. Some or all of the immunohistochemical tests reported herein may have been developed and their performance characteristics determined by [facility]. They have not been cleared [...] Maryann Tan Age/Sex: 55/F : 1970 Unit#: [id number] Attend Dr: Delbert Simons MD Re06/11/25 Status: DEP REF Location: [facility] Disch: ----- ------- SPEC : [id number] RECD: 06/11/25 STATUS: ELIZABETH CARDOZA NUM: [id number] EILEEN: 06/11/25 [facility] [address]: Delbert Simons MD ENTERED: 06/11/25 SP TYPE: Surgical OTHR DR: Cedric Liao MD ORDERED: SANDRA Stain/6, Gross Micro L4/2, Specials Gr. 1/2, PASF/2 Copies To: Cedric Liao MD [address] [place] [phone] Delbert Simons MD [facility] Women[facility] Services [address] [place] [address] Drive [address] [place] [address] ----- ------- Signed (signature on file) Nithya Barry 06/12/25 1227 ----- ------- END OF REPORT us Generic External Data Provider LAB BLOOD ORDERAB LES Final Result Performing Organization Address City/State/[facility] Co de Phone Number [facility] [address] [place] [phone] * BI Mammogram Screening Tomosynthesis Bilateral (05/28/2025 10:12 AM EDT) Anatomical Region Laterality Modality Breast Bilateral Mammography 05/28/2025 10:1 2 AM EDT Narrative 06/10/2025 9:26 AM EDT [facility]'[address] [place] [address] Mammography Report Signed Patient: Maryann Tan MR #: [id number] : 1970 Acct:[id number] Age/Sex: 55 / F ADM Date: 05/28/25 Loc: HO.MAMMO Attending Dr: Cedric Liao MD Ordering Physician: Cedric Liao MD Results: 1Negative Date of Service: 05/28/25 Follow Up: 1 Year From [facility] ina Mammogram Procedure(s): MM tomosynthesis screening BI Accession Number(s): [id number] cc: Cedric Liao MD EXAMINATION: MM SCREENING [...] 06/10/25 0923 DD/ 1012 TD/TT: 05/28/25 1025 Dynamo Repairer: Procedure Note Donotuseinterpreter, Image - [facility] [address] [place], [place] [address] Mammography Report Signed Patient: Maryann Tan AMR #: [id number] : 1970Acct:[id number] Age/Sex: 55 / FADM Date: 05/28/25 Loc: HO.MAMMO Attending Dr: Cedric Liao MD Ordering Physician: Cedric Liaoults: 1Negative Date of Service: 05/28/25Follow Up: 1 Year From Orig inal Mammogram Procedure(s): MM tomosynthesis screening BI Accession Number(s): [id number] cc: Cedric Liao MD EXAMINATION: MM SCREENING [...] 06/10/25 0923 DD/ 1012 TD/TT: 05/28/25 1025 Dynamo Repairer: us Cedric Liao MD IMG BI PROCEDURES Final Result * Hepatitis C Antibody with Reflex to HCV, RNA, Quantitative, Real-Time PCR (10/03/2024 11:20 AM EST) Hepatitis C Antibody Nonreactive Nonreactive [facility] Comment:Antibodies to HCV no t detected; does not exclude early acuteHCV infection. Blood Venous blood specimen / Unknown 10/03/2024 11:20 AM EST 10/03/2024 1:16 PM EST us Cedric Liao MD LAB BLOOD ORDERABLES Final Resul t [facility] [address] [place] [address] [phone] * HIV-1/2 Antigen and Antibodies, Fourth Generation, with Reflexes (10/03/2024 11:20 AM EST) HIV AB/AG Nonreactive Nonreactive [facility] Comment:HIV-1 p24 Ag and/or HIV-1/HIV-2 Ab not detected.A test result that is nonreactive does not exclude thepossibility of exposure to or infection with HIV-1 and/orHIV-2. Nonreactive results in this assay for individualswith prior exposure to HIV-1 and/or HIV-2 may be due toantigen and antibody levels that are below the limit ofdetection of this assay.The [employer] HIV Ag/Ab Combo assay result andsupplemental assay results should be interpreted inconjunction with the patient's clinical presentation,history and other laboratory results. If the results areinconsistent with clinical evidence, additional testing issuggested to confirm the result. Blood Venous blood specimen / Unknown 10/03/2024 11:20 AM EST 10/03/2024 1:16 PM EST Cedric Liao MD LAB BLOOD ORDERABLES Final Resul t [facility] [address] [place] [phone] [phone] * (ABNORMAL) Colonoscopy (07/21/2023) Colonoscopy Abnormal(A ) Normal Cedric Liao MD HEALTH MAINTENANCE Final Result * Pap Smear (12/24/2019) Pap Negative for intraephithelial lesion or malignancy Negative for intraephithelial lesion or malignancy, Other HPV Undetected 12/24/2019 Historical Provider HEALTH MAINTENANCE Final Result from Last 3 Months or Most Recently Relevant to Health Maintenance Insurance [employer] [address] [place] [id number] [facility] [address] [place] [phone] DENTAL - HSN PARTIAL (MEDICAID) * Guarantor: Maryann Tan Account Type Relation to Patient Date of Phone Billing Address Personal/Family Self [address] [place] [address] * Guarantor: Maryann Tan Account Type Relation to Patient Date of Phone Billing Address Personal/Family Self [address] [place] [address] * Guarantor: Maryann Tan Account Type Relation to Patient Date of Phone Billing Address Personal/Family Self [address] [place] [address] Care Teams Licensed Clinical Psychologist Relationship Specialty Start Date End Date Name, MD Cedric [address] [place] [address] PCP - General Family Medicine 04/06/16
--- OUTSIDE RECORDS SUMMARY | 2025-09-10 15:38 | XMS_ITS | Encounter Summary ---
Author Organization [employer] Address [address] [facility] 7 [place] [address] Care Team Providers Care Enterprise Application Developer Name Role Phone Name, Cedric NICK Primary Care Provider [phone] Encounter Details Date Type Department Care Team (Late st Contact Info) Description 04/25/2023 Abstract [facility] MEDICINE [address] [place] [address] Name, MD Cedric [address] [place] [address] Social History Tobacco Use Types Packs/Day Years [...] Description 09/18/2025 3:00 PM EST Office Visit [facility] ADULT DENTAL [address] [place] [address] Iza Dial [address] [place] [address] 09/26/2025 10:30 AM EST Office Visit [facility] MEDICINE [address] [place], [place] [phone] Name, MD Cedric [address] [place] [address] documented as of this encounter Procedures Procedure [...] EDT Recommended 5 year follow up ( [facility]) us Historical Provider HEALTH MAINTENANCE Final Result documented in this encounter Visit Diagnoses Not on filedocumented in this encounter Additional Health Concerns Assessment Noted Time PHQ-9 Depression Total Score: 0 11/19/19 23 1:50 PM EST documented as of this encounter Care Teams Enterprise Application Developer Relationship Specialty Start Date End Date Name, [place] [address] PCP - General Family Medicine 04/06/16 documented as of this encounter
--- OUTSIDE RECORDS SUMMARY | 2025-09-10 15:38 | XMS_ITS | Clinical Summary ---
Author Organization [facility] Address [address] [place] [address] Phone Care Team Providers Care Junior Data Analyst Name Role Phone Physician, No Pcp Primary Care Provider Unavaila ble Social History Tobacco Use Types Packs/Day Years Used Date Smoking Tobacco: Never Assessed Comments Unknown Sex and Gender Information Value Date Recorded Sex Assigned at Female 06/14/2025 4:22 PM EDT Legal Sex Female 2:21 PM EDT Gender Identity Not on file Sexual Orientation Not on file Plan of Treatment Upcoming Encounters Date Type Department Care Team (Late st Contact Info) Description 11/26/2025 10:30 AM EST Consult Orthopedic Oncology - [facility] [address] [place] [address] Jarad Quevedo MD [address] [place] [address] Health Maintenance Due Date Last Done Comments Breast Cancer Screening 1968 Colorectal Cancer Screening: Colonoscopy 1968 DTaP,Tdap,and Td Vaccines (1 - Tdap) 1987 Hepatitis B Vaccines (1 of 3 - 19+ 3-dose series) 1987 Cervical Cancer Screening: P ap Smear 1989 Pneumococcal Vaccine: 50+ Ye ars (1 of 1 - PCV) 2018 Zoster Vaccines (1 of 2) 2018 Depression Screening 11/14/2024 HIV Screening 04/12/2025 Hepatitis C Screening 04/12/2025 Social Influencers of Health Screening 04/12/2025 COVID-19 Vaccine (1 - 2023-2 5 season) 2025 Influenza Vaccine (#1) 2025 RSV Immunization Adult Patie nts (1 - 1-dose 75+ series) 2043 HIB Vaccines Aged Out No longer eligi [...] to complete this topic Insurance [facility] PUBLIC [facility] Care Teams Junior Data Analyst Relationship Specialty Start Date End Date Physician, No Pcp PCP - General 06/14/25
--- OUTSIDE RECORDS SUMMARY | 2025-09-10 15:39 | XMS_ITS | Encounter Summary ---
Author Organization [facility] Address [facility] [address] [place] [address] Phone Care Team Providers Care Business Intelligence Etl Developer Name Role Phone Name, Cedric NICK Primary Care Provider [phone] Encounter Details Date Type Department Care Team (Late Contact Info) Description 02/02/2022 Telephone [facility] [address] [place] [address] Jasiel Oliver, [address] [address] Social History Tobacco Use Types Packs/Day Years [...] send to Dr Liao. Thank you FAX# [phone] documented in this encounter Plan of Treatment Upcoming Encounters Date Type Department Care Team (Late Contact Info) Description 09/20/2025 Orders Only [facility] [address] [facility] [address] [place] [address] Buddy Ortiz MD [address] [facility] [address] [place] [address] Nephrolithiasis; Proteinuria, not otherwise specified; Vitamin D deficiency, not otherwise specified 09/23/2025 10:00 AM EST Office Visit [facility] [address] [phone] Buddy Ortiz MD [address] [place] [phone] documented as of this encounter Visit Diagnoses Not on filedocumented in this encounter Care Teams Business Intelligence Etl Developer Relationship Specialty Start Date End Date Name, MD Cedric [address] [place] [address] PCP - General Internal Medicine 02/02/22 documented as of this encounter
--- OUTSIDE RECORDS SUMMARY | 2025-09-10 15:39 | XMS_ITS | Encounter Summary ---
Author Organization [employer] Address [address] [place] [address] 7 [place] [address] Care Team Providers Care Towboat Pilot Name Role Phone Name, Cedric NICK Primary Care Provider [phone] Encounter Details Date Type Department Care Team (Latest Contact Info) Description 04/01/2022 Abstract [facility] CONVERSIONS Dental, Provider, DDS Social History [...] 09/18/2025 3:00 PM EST Office Visit [facility] ADULT DENTAL [address] [place] [address] Josh Dialaris [address] [place] [address] 09/26/2025 10:30 AM EST Office Visit [facility] MEDICINE [address] [place] [address] Cedric Liao MD [address] [place] [address] documented as of this encounter Visit Diagnoses Not on filedocumented in this encounter Care Teams Towboat Pilot Relationship Specialty Start Date End Date Cedric Liao MD [address] [place] [address] PCP - General Family Medicine 04/06/16 documented as of this encounter
--- OUTSIDE RECORDS SUMMARY | 2025-09-10 15:39 | XMS_ITS | Encounter Summary ---
Author Organization [employer] Address 75 [facility] 7t [place] [address] Care Team Providers Care Obstetric Anaesthetist Name Role Phone Name, Cedric NICK Primary Care Provider [phone] Reason for Visit * Reason Onset Date Comments Nurse Triage 09/05/2025 Encounter Details Date Type Department Care Team ([facility] st Contact Info) Description 09/05/2025 Telephone [facility] MEDICINE [address] [place], [place] [phone] Name, MD Cedric [address] [place] [address] Nurse Triage Social History Tobacco Use Types [...] encounter Miscellaneous Notes * Telephone Encounter - Sabrina Cabrera RN - 09/05/2025 1:20 PM EDT T/C to pt via [employer] Sales Person Max #[phone]. Pt c/o 08/23 pain and swelling to her right knee since yesterday morning. Reports knee is hot. Denies redness, injury. Reports that she has a mass under her knee which pcp is aware of which previously required drainage. Pt reports that she has been taking antibiotics x 7 days for an intestinal infection. States that last night she took naproxen, vomited and felt some relief from knee pain when she fell asleep. Recommended that pt go to ED now for evaluation. Pt asking if she can come to [facility]. Advised pt she would need to be evaluated in ED for reportedsymptoms and can f/u with pcp following discharge. Pt reports agreement with plan. Protocol Used: Knee Pain (Adult) Protocol-Based Disposition: See in Office or Video Visit Today Override (Final) Disposition: Go to ED Now Override Reason: Nurse judgment Override Notes: 08/23 right knee pain, swelling unable to walk Positive Triage Question: * Severe pain (e.g., excruciating, unable to walk) * All higher-acuity triage questions were negative Care Advice Discussed: * Reasons To Call Back - You become worse * Telephone Encounter - Carmen Vick - 09/05/2025 12:40 PM EDT Symptom: Knee Pain - Not From Injury Outcome: Talk to a nurse or provider within 15 minutes Reason: Can't walk (unless normally can't walk) The caller accepted this outcome. 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 documented in this encounter Plan of Treatment Upcoming Encounters Date Type Department Care Team (Late st Contact Info) Description 09/18/2025 3:00 PM EST Office Visit [facility] ADULT DENTAL [address] [place] [address] Iza Dial [address] [place] [address] 09/26/2025 10:30 AM EST Office Visit [facility] MEDICINE [address] [place] [address] Name, MD Cedric [address] [place] [address] documented as of this encounter Visit Diagnoses Not on filedocumented in this encounter Additional Health Concerns Assessment Noted Time PHQ-9 Depression Total Score: 0 06/27/20 25 10:35 AM EDT documented as of this encounter Care Teams Obstetric Anaesthetist Relationship Specialty Start Date End Date Name, MD Cedric [address] [place] [address] PCP - General Family Medicine 04/06/16 documented as of this encounter
--- OUTSIDE RECORDS SUMMARY | 2025-09-10 15:39 | XMS_ITS | Encounter Summary ---
Author Organization [employer] Address [address] [facility] 7 [place] [address] Care Team Providers Care Manager Club Name Role Phone Name, Cedric NICK Primary Care Provider [phone] Reason for Visit * Reason Onset Date Comments ER Follow-up 09/09/2025 Encounter Details Date Type Department Care Team ([facility] st Contact Info) Description 09/09/2025 Telephone [facility] MEDICINE [address] [place], [place] [phone] Name, MD Cedric [address] [place] [address] ER Follow-up Social History Tobacco Use Types Packs/Day Years [...] encounter Miscellaneous Notes * Telephone Encounter - Annette Leblanc RN - 09/09/2025 1:50 PM EDT [facility] reviewed, pt. In ED 09/06/25 for R knee swelling x 3 days with h/o pigmented villonodular synovitis. X-ray showed moderate joint effusion. Per records, pt. Saw [facility] ortho for this most recently in March but had to be referred to orthopedic solutions specialist. Pt. Is not scheduled until November. Prescribed ibuprofen. TC placed to pt. Pt. Reports pain and swelling is worse than when ED. Rates as 10 despite use ofpain medication. Pt. Reports she is able to walk but only for short distances before having to sit down. Pt. Confirms ortho oncology appointment in November in [place]. Pt. Declines evaluation today due to being unable to drive and will need to secure transportation. Agrees to f/up appointment tomorrow 09/10 at 1:30pm with ALLIE Edwards. Protocol Used: Knee Swelling (Adult) Protocol-Based Disposition: Go to Office or Video Visit Now Override (Final) Disposition: See in Office or Video Visit Today or Tomorrow Override Reason: Transportation not available Positive Triage Questions: * Severe pain (e.g., excruciating, unable to walk) and not improved after 2 hours of pain medicine * Mild or Moderate swelling (e.g., can't move joint normally, can't do usual activities) (Exceptions: Itchy, localized swelling; swelling is chronic.) * Knee swelling is a chronic symptom (recurrent or ongoing AND present > 4 weeks) * All higher-acuity triage questions were negative Care Advice Discussed: * Pain Medicines - Ibuprofen for Swelling * Telephone Encounter - Casey Jase - 09/09/2025 11:23 AM EDT Patient calling to report ED visit on : Date: 09/06/25 Hospital: [facility] Seen for: Mass in the knee Symptomatic Yes Symptom: Knee Pain - Not From Injury Outcome: Schedule an urgent appointment (within 4 hours) or talk to a nurse or provider soon Reason: Swelling Please contact pt at [phone]. (Cameroonian Speaker) documented in this encounter Plan of Treatment Upcoming Encounters Date Type Department Care Team (Late st Contact Info) Description 09/18/2025 3:00 PM EST Office Visit [facility] ADULT DENTAL [address] [place] [address] Jayro, Iza [address] [place] [address] 09/26/2025 10:30 AM EST Office Visit [facility] MEDICINE [address] [place] [address] Name, MD Cedric [address] [place] [address] documented as of this encounter Visit Diagnoses Not on filedocumented in this encounter Additional Health Concerns Assessment Noted Time PHQ-9 Depression Total Score: 0 06/27/20 10:35 AM EDT documented as of this encounter Care Teams Manager Club Relationship Specialty Start Date End Date Name, MD Cedric [address] [place] [address] PCP - General Family Medicine 04/06/16 documented as of this encounter
--- OUTSIDE RECORDS SUMMARY | 2025-09-10 15:39 | XMS_ITS | Encounter Summary ---
Author Organization [email or web address] Address [address] [facility] 7t [place] [address] Care Team Providers Care Grades 9 Thru 12 Visiting Teacher Name Role Phone Name, Cedric NICK Primary Care Provider [phone] Reason for Visit * Reason Comments Med Refill Encounter Details Date Type Department Care Team ([facility] st Contact Info) Description 04/23/2025 Refill [facility] MEDICINE [address] [place] [phone] Name, MD Cedric [address] [place] [address] Social History Tobacco Use Types Packs/Day Years [...] Description 09/18/2025 3:00 PM EST Office Visit [facility] ADULT DENTAL [address] [place] [address] Jayro, Iza [address] [place] [address] 09/26/2025 10:30 AM EST Office Visit [facility] MEDICINE [address] [place] [address] Name, MD Cedric [address] [place] [address] documented as of this encounter Visit Diagnoses Not on filedocumented in this encounter Additional Health Concerns Assessment Noted Time PHQ-9 Depression Total Score: 0 02/20/20 24 10:24 AM EDT documented as of this encounter Care Teams Grades 9 Thru 12 Visiting Teacher Relationship Specialty Start Date End Date Name, MD Cedric [address] [place] [address] PCP - General Family Medicine 04/06/16 documented as of this encounter
--- OUTSIDE RECORDS SUMMARY | 2025-09-10 15:39 | XMS_ITS | Clinical Summary ---
Author Organization [facility] Address [address] [facility] [address] [place] [address] Phone Care Team Providers Care Fumigator And Sterilizer Name Role Phone Name, Cedric NICK Primary Care Provider [phone] Allergies Active Allergy Reactions Criticality Noted Date [...] each day 09/30/2021 Active Deep Sea Nasal Hines 0.65 % nasal spray 11/04/2021 Active polyethylene [...] Upcoming Encounters Date Type Department Care Team ([facility] st Contact Info) Description 09/20/2025 Orders Only [facility] [address] [phone] Buddy Ortiz MD [address] [address] Nephrolithiasis; Proteinuria, not otherwise specified; Vitamin D deficiency, not otherwise specified 09/23/2025 10:00 AM EST Office Visit [facility] [address] [address] Buddy Ortiz MD [address] [phone] Health Maintenance Due Date Last Done Comments Breast Cancer Screening 1968 Pneumococcal Vaccine: 50+ Ye ars (1 of 2 - PCV) 1987 Colorectal Cancer Screening: Annual FOBT 2017 Colorectal Cancer Screening: Colonoscopy 2017 Colorectal Cancer Screening: Sigmoidoscopy 2017 Hepatitis B Vaccine (3 of 3 - 19+ 3-dose series) 07/27/2023 03/29/2023, 01/24/2023 Influenza Vaccine (#1) 2025 , 09/16/2020, 08/09/2018, Additional history exists [place] [address] ([id number]) [facility] Plan ([id number]) Care Teams Fumigator And Sterilizer Relationship Specialty Start Date End Date Name, MD Cedric [address] [place] [address] PCP - General Internal Medicine 02/02/22
--- OUTSIDE RECORDS SUMMARY | 2025-09-10 15:39 | XMS_ITS | Encounter Summary ---
Author Organization [employer] Address [address] [facility] [address] 7t [place] [address] Care Team Providers Care Assembler Arranger Name Role Phone Name, Cedric NICK Primary Care Provider [phone] Encounter Details Date Type Department Care Team ([facility] st Contact Info) Description 09/09/2025 Patient Outreach [facility] [address] [place], [place] [phone] Name, MD Cedric [address] [place] [address] Social History Tobacco Use Types Packs/Day Years [...] AM EDT documented as of this encounter Progress Notes * Sabrina Mcpherson RN - 09/09/2025 1:56 PM EDT Transition of Care Note Maryann Ruelas is going through a recent transition of care. Emergency Room Visit Date: 09/06/25 Facility: [facility] Diagnosis: R Leg Swelling Disposition: Discharged home Discharge summary in the chart: Yes Please contact for a telehealth RN visit documented in this encounter Plan of Treatment Upcoming Encounters Date Type Department Care Team (Late st Contact Info) Description 09/18/2025 3:00 PM EST Office Visit [facility] ADULT DENTAL [address] [place] [address] Jayro, Iza [address] [place] [address] 09/26/2025 10:30 AM EST Office Visit [facility] MEDICINE [address] [place] [address] Cedric Liao MD [address] [place] [address] documented as of this encounter Visit Diagnoses Not on filedocumented in this encounter Additional Health Concerns Assessment Noted Time PHQ-9 Depression Total Score: 0 06/27/20 10:35 AM EDT documented as of this encounter Care Teams Assembler Arranger Relationship Specialty Start Date End Date NameCedric MD [address] [place] [address] PCP - General Family Medicine 04/06/16 documented as of this encounter
--- OUTSIDE RECORDS SUMMARY | 2025-09-10 15:39 | XMS_ITS | Encounter Summary ---
Author Organization [employer] Address [address] [facility] [address] [place] [address] Care Team Providers Care Appliance Service Technician Name Role Phone Name, Cedric NICK Primary Care Provider [phone] Encounter Details Date Type Department Care Team (Latest Contact Info) Description 09/10/2025 Travel Social History Tobacco Use Types Packs/Day [...] Description 09/18/2025 3:00 PM EST Office Visit [facility] ADULT DENTAL [address] [place] [address] Jayro, Iza [address] [place] [address] 09/26/2025 10:30 AM EST Office Visit [facility] MEDICINE [address] [place] [address] Name, MD Cedric [address] [place] [address] documented as of this encounter Visit Diagnoses Not on filedocumented in this encounter Additional Health Concerns Assessment Noted Time PHQ-9 Depression Total Score: 0 06/27/20 25 10:35 AM EDT documented as of this encounter Care Teams Appliance Service Technician Relationship Specialty Start Date End Date NameCedric MD [address] [place] [address] PCP - General Family Medicine 04/06/16 documented as of this encounter
--- OUTSIDE RECORDS SUMMARY | 2025-09-10 15:39 | XMS_ITS | Encounter Summary ---
Author Organization [employer] Address [address] [facility] [address] 7t [place] [address] Care Team Providers Care Poultry Packer Name Role Phone Name, Cedric NICK Primary Care Provider [phone] Encounter Details Date Type Department Care Team ([facility] Contact Info) Description 09/23/2023 Orders Only [facility] MEDICINE [address] [place], [place] [phone] Name, MD Cedric [address] [place] [address] Social History Tobacco Use Types Packs/Day Years [...] Description 09/18/2025 3:00 PM EST Office Visit [facility] ADULT DENTAL [address] [place] [address] Jayro, Iza [address] [place] [address] 09/26/2025 10:30 AM EST Office Visit [facility] MEDICINE [address] [place] [address] Name, MD Cedric [address] [place] [address] documented as of this encounter Visit Diagnoses Not on filedocumented in this encounter Additional Health Concerns Assessment Noted Time PHQ-9 Depression Total Score: 0 11/19/19 23 1:50 PM EST documented as of this encounter Care Teams Poultry Packer Relationship Specialty Start Date End Date Name, MD Cedric [address] [place] [address] PCP - General Family Medicine 04/06/16 documented as of this encounter
== END ==
LOC: HO.NUCMED 12:23
PROVIDERS: PCP Internal Medicine Geriatric Medicine; Visit Provider Nurse Practitioner Family
DX: Z13.89 Encounter for screening for other disorder (principal)

== ENCOUNTER 2025-09-10 15:42 | Outpatient (REF) | payer OTHER, SELFPAY ==
[2025-09-10 18:05] LABS: MANUAL DIFF FLAG NO
[2025-09-10 18:27] LABS: Anion Gap 12 (12-20); Blood Urea Nitrogen 8 mg/dL (9-16); Calcium 9.3 mg/dL (8.4-10.2); Carbon Dioxide 28 mmol/L (22-29); Chloride 103 mmol/L (96-108); Estimated Glomerular Filt Rate > 60; Potassium 4.4 mmol/L (3.3-5.1); Sodium 139 mmol/L (135-145)
[2025-09-10 19:03] LABS: Hematocrit 39.8 % (37.0-47.0); Hemoglobin 12.2 g/dl (12.0-16.0); Imm Gran Abs Auto 0.02 X10*3/uL (0.00-0.03); Imm Gran Pct Auto 0.3 % (0.0-0.4); Lymphocytes Absolute Auto 2.3 X10*3/uL (1.2-4.9); Mean Corpuscular HGB Conc 30.7 g/dl (31.0-35.0); Mean Corpuscular Hemoglobin 27.2 pg (27.0-33.0); Mean Corpuscular Volume 88.6 fL (80.0-98.0); NRBC Abs Auto 0.000 X10*3/uL (0.0-0.012); NRBC Pct Auto 0.0 /100WBC (0.0-0.2); Platelet Count 266 X10*3/uL (160-400); Red Blood Count 4.49 X10*6/uL (4.20-5.50); White Blood Count 6.4 X10*3/uL (4.8-10.8)
== END 2025-09-10 15:43 | disposition home or self-care (01) ==
LOC: HO.HHCL 15:42
PROVIDERS: PCP Internal Medicine Geriatric Medicine; Visit Provider Nurse Practitioner Family
DX: M25.561 Pain in right knee (principal); M12.261 Villonodular synovitis (pigmented), right knee
CPT/HCPCS: 36415; 80048; 85025; 85652; 86140

== ENCOUNTER → 2025-09-11 13:46 | Outpatient (REF) | payer OTHER, SELFPAY ==
--- OUTSIDE RECORDS SUMMARY | 2025-09-10 13:30 | XMS_ITS | Encounter Summary ---
Author Organization [employer] Address [address] [facility] [address] [place] [address] Care Team Providers Care Solar Energy Systems Designer Name Role Phone Name, Cedric NICK Primary Care Provider [phone] Reason for Referral * Medications - Closed Specialty Diagnoses / Procedures Referred By Contac t Referred To Contact Diagnoses Acute pain of right knee Pigmented villonodular synovitis of right knee Grace Ramsey NP [address] [place] [address] Phone: tel: fax: Referral ID Status Reason Start Date Expiration Date Visits Re quested Visits Authorized [id number] Closed 1 1 * Consultation (STAT) - Authorized Specialty Diagnoses / Procedures Referred By Contac t Referred To Contact Orthopaedic Surgery Diagnoses Acute pain of right knee Pigmented villonodular synovitis of right knee Grace Ramsey NP [address] [place] [address] Phone: tel: fax: Referral ID Status Reason Start Date Expiration Date Visits Requested Visits Authorized [id number] Authorized Specialty Services Required 09/10/2026 1 1 Reason for Visit * Reason Comments sick onsite Encounter Details Date Type Department Care Team ([facility] st Contact Info) Description 09/10/2025 1:30 PM EDT Office Visit [facility] [address] [place] [address] Grace Ramsey, VERIFICATION REP [address] [place] [address] Pigmented villonodular synovitis of right knee (Primary [...] 1:47 PM EDT documented in this encounter Progress Notes * Grace Ramsey NP - 09/10/2025 1:30 PM EDT Maryann Ruelas is a 55 y.o. 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 - Emergency room visit on Saturday, September 06, 2025, for current symptoms; received a note for work absence - Treated with Tylenol and ibuprofen for pain; unable to take anti-inflammatory medications due to history of colitis and recent antibiotics - Previous intolerance to tramadol and oxycodone due to nausea and vomiting - Prescribed hydrocodone in May 2024 but did not take it - History of allergy to iodine and contrast agents - Awaiting orthopedic evaluation scheduled for November 2025 to determine need for knee surgery Review of Systems BP (!) 120/90 (BP Location: Right arm, Patient Position: Sitting, BP Cuff Size: Adult) Pulse 72 Temp 98 ??F (36.7 ??C) (Oral) Resp 18 Ht 5' 1 (1.549 m) Wt 137 lb 9.6 oz (62.4 kg) SpO2 98% BMI 26.00 kg/m?? Physical Exam Vitals reviewed. HENT: Head: Normocephalic and atraumatic. Nose: Nose normal. Eyes: Conjunctiva/sclera: Conjunctivae normal. Cardiovascular: Rate and Rhythm: Normal rate and regular rhythm. Pulmonary: Effort: Pulmonary effort is normal. Breath sounds: Normal breath sounds. Musculoskeletal: General: Swelling, tenderness and deformity present. Cervical back: Normal range of motion and neck supple. Right lower leg: Edema present. Neurological: General: No focal deficit present. Mental Status: She is alert. - MUSCULOSKELETAL: Right knee warm to touch. Results: Assessment & Plan Acute pain of right knee Orders: Referral to Orthopaedic Surgery; Future lidocaine (Lidoderm) 5 % patch; Apply 1 patch topically Once per day. Remove & discard patch within 12 hours or as directed by MD. CBC auto differential; Future Sed Rate by Modified Westergren; Future C-reactive Protein; Future Basic Metabolic Panel; Future Pigmented villonodular synovitis of right knee Orders: Referral to Orthopaedic Surgery; Future lidocaine (Lidoderm) 5 % patch; Apply 1 patch topically Once per day. Remove & discard patch within 12 hours or as directed by MD. traMADol (Ultram) 50 MG tablet; Take 1 tablet (50 mg) by mouth every 6 (six) hours if needed for severe pain for up to 5 days. CBC auto differential; Future Sed Rate by Modified Westergren; Future C-reactive Protein; Future Basic Metabolic Panel; Future Assessment & Plan Acute pain of right knee: - Acute right knee pain requiring escalation of pain management. - Prescribed tramadol for pain control. Advised continuation of acetaminophen and ibuprofen. Prescribed lidocaine patch for local application to the knee. Provided prescription for anti-nausea medication in case of adverse effects from tramadol. Offered cane for ambulation assistance. Extended workabsence for two weeks and discussed options for long-term medical leave paperwork (FMLA/PMLA) if needed. - Risks and side effects: Discussed potential for nausea with tramadol and provided anti-nausea medication. 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 - Ordered stat MRI of the right knee to further evaluate the condition. Ordered blood work to assess for possible infection. Attempted to expedite orthopedic follow-up appointment to within one week.Instructed to attend orthopedic appointment as soon as possible if contacted prior to MRI. Prescription - Low-dose tramadol for breakthrough knee pain - Antiemetic prescription, to be used as needed for nausea - Lidocaine patch, apply to affected knee for up to 12 hours then remove for skin break Appointments - Urgent orthopedics consultation, originally in November, to be moved up to this week Current Medications[4] Based on our discussion, I have outlined the following instructions for you: - Take tramadol as prescribed to help with your knee pain. - Keep taking acetaminophen and ibuprofen as you have been. - Use the lidocaine patch on your right knee as directed. - If you feel nauseous after taking tramadol, use the anti-nausea medication that was prescribed. - Use crutches if needed - Stay off work for two weeks as advised. If you need to be off work longer, ask about paperwork for long-term medical leave. - Get the blood tests that were ordered to check for infection. Next appointment(s): - Urgent orthopedics consultation, originally in November, to be moved up to this week Thank you again for your visit, and we look forward to supporting you in your journey to better health. This note was drafted using Ambient (AI) technology. The patient/patient's guardian has been informed and has consented to the use of this technology: Yes Visit Conducted in: Maltese Translation by: Provided by [employer] Phone Service ID # [id number] [1] Patient Active Problem List Diagnosis Hypothyroidism Diffuse goiter Acute hip pain Acquired hypothyroidism Complex cyst of left ovary Diverticulitis large intestine Seasonal allergic rhinitis Tubular adenoma Uterine leiomyoma Vaginal discharge Vitamin D deficiency Proteinuria Irregular periods GERD (gastroesophageal reflux disease) Kidney stone History of open sigmoidectomy Vulvovaginitis Adnexal fullness Anxiety Chronic idiopathic constipation Contusion of lower limb, left Diverticulitis Dyspepsia Dysuria Endometrial hyperplasia Headache Hemorrhoids with complication Hydronephrosis Inhalation of smoke Metrorrhagia Microscopic hematuria Recurrent UTI S/P colon resection Seroma due to trauma (CMS/HCC) Stenosis of ureteropelvic junction (UPJ) Ureteral stricture, right Ventral hernia Well woman exam History of hernia repair Endometrial polyp Postop check Status post repair of ventral hernia Uterine myoma Dental caries Dental calculus Missing teeth, acquired Generalized gingival recession Excessive attrition of teeth, limited to enamel Dental root caries Acute pain of right knee Pigmented villonodular synovitis of right knee [2] Past Medical History: Diagnosis Date Anxiety 06/27/2024 Disease of thyroid gland Diverticulitis Diverticulitis large intestine 11/18/2022 Recurrent. Patient underwent exploratory laparotomy, sigmoid resection, primary colorectal EEA anastomosis, and rigid proctoscopy on 08/11/23. Dyspepsia 06/27/2024 Dysuria 06/27/2024 Endometrial hyperplasia 06/27/2024 GERD (gastroesophageal reflux disease) History of open sigmoidectomy 09/12/2023 Hydronephrosis 06/27/2024 Hypertension Hypothyroidism 11/24/2015 Metrorrhagia 06/27/2024 Microscopic hematuria 06/27/2024 Proteinuria Stenosis of ureteropelvic junction (UPJ) 06/27/2024 [3] Allergies Allergen Reactions Ceftriaxone Anaphylaxis Iodinated Contrast Media Shortness of breath and Anaphylaxis Magnesium Hydroxide Rash Lactose Diarrhea Whole milk [4] Current Outpatient Medications: Acetaminophen Extra Strength 500 MG tablet, TAKE 2 TABLETS BY MOUTH EVERY 8 HOURS NEEDED fevor OR FOR PAIN, Disp: 90 tablet, Rfl: 0 Bisacodyl EC 5 MG EC tablet, TAKE 2 TABLETS BY MOUTH AT BEDTIME, Disp: , Rfl: cetirizine (ZyrTEC) 10 MG tablet, TAKE 1 TABLET BY MOUTH EVERY DAY, Disp: 30 tablet, Rfl: 2 docusate sodium (Colace) 100 MG capsule, TAKE 1 CAPSULE BY MOUTH AT BEDTIME, Disp: , Rfl: empagliflozin (Jardiance) 10 MG, Take 1 tablet (10 mg) by mouth Once per day., Disp: 30 tablet, Rfl: 11 fluticasone (Flonase) 50 MCG/ACT nasal spray, Administer 2 sprays into each nostril Once per day. Shake gently. Before first use, prime pump. After use, clean tip and replace cap., Disp: 16 g, Rfl: 2 levothyroxine (Synthroid, Levoxyl) 75 MCG tablet, TAKE 1 TABLET BY MOUTH EVERY DAY BEFORE BREAKFAST, Disp: 90 tablet, Rfl: 1 lidocaine (Lidoderm) 5 % patch, Apply 1 patch topically Once per day. Remove & discard patch within 12 hours or as directed by MD., Disp: 30 patch, Rfl: 0 lisinopril 10 MG tablet, Take 1 tablet (10 mg) by mouth Once per day., Disp: , Rfl: meloxicam (Mobic) 15 MG tablet, Take 1 tablet (15 mg) by mouth Once per day., Disp: 30 tablet, Rfl:11 omeprazole (PriLOSEC) [address] capsule, Take 1 capsule by mouth Once per day., Disp: , Rfl: polyethylene glycol, PEG, 3350 (Glycolax) 17 GM/SCOOP powder, MIX 238 GRAM IN WATER AND TAKE ONCE DIRECTED BY [facility], Disp: , Rfl: Procto-Med HC 2.5 % rectal cream, APPLY RECTALLY 2-4 TIMES PER DAY NEEDED FOR HEMORRHOIDS, Disp:30 g, Rfl: 2 traMADol (Ultram) 50 MG tablet, Take 1 tablet (50 mg) by mouth every 6 (six) hours if needed for severe pain for up to 5 days., Disp: 15 tablet, Rfl: 0 Vitamin D High Potency 25 MCG (1000 UT) capsule, TAKE 1 CAPSULE BY MOUTH ONCE DAILY, Disp: , Rfl: documented in this encounter Miscellaneous Notes * Assessment & Plan Note - Grace Ramsey NP - 09/10/2025 1:30 PM EDTAssociated Problem(s): Acute pain of right knee Orders: Referral to Orthopaedic Surgery; Future lidocaine (Lidoderm) 5 % patch; Apply 1 patch topically Once per day. Remove & discard patch within 12 hours or as directed by . CBC auto differential; Future Sed Rate by [...] severe pain for up to 5 days. CBC auto differential; Future Sed Rate by Modified Westergren; Future C-reactive Protein; Future Basic Metabolic Panel; Future documented in this encounter Plan of Treatment Upcoming Encounters Date Type Department Care Team (Late st Contact Info) Description 09/18/2025 3:00 PM EST Office Visit [facility] [address] [place] [address] Jayro, Iza [address] [place] [address] 09/26/2025 10:30 AM EST Office Visit [facility] [address] [place] [address] Name, MD Cedric [address] [place] [address] Scheduled Referrals Name Type Priority Associated Diagnoses Orde r Schedule Referral to Orthopaedic Surgery Outpatient Referral STAT Acute pain of right knee Pigmented villonodular synovitis of right knee Expected: 09/10/2025 (Approximate), Expires: 09/10/2026 documented as of this encounter Procedures Procedure Name Priority Date/Time Associated Diagnosis Comments CBC WITH AUTO DIFFERENTIAL Routine 09/10/2025 3:51 PM EDT Acute pain of right knee Pigmented villonodular synovitis of right knee SED RATE BY MODIFIED WESTERGREN Routine 09/10/2025 3:51 PM EDT Acute pain of right knee Pigmented villonodular synovitis of right knee C-REACTIVE PROTEIN Routine 09/10/2025 3: 51 PM EDT Acute pain of right knee Pigmented villonodular synovitis of right knee BASIC METABOLIC PANEL Routine 09/10/2025 3:51 PM EDT Acute pain of right knee Pigmented villonodular synovitis of right knee documented in this encounter Results * (ABNORMAL) Basic Metabolic Panel (09/10/2025 3:51 PM EDT) Sodium 139 135 - 145 mmol/L [facility] Potassium 4.4 3.3 - 5.1 mmol/L [facility] Chloride 103 96 - 108 mmol/L [facility] Carbon Dioxide 28 22 - 29 mmol/L [facility] Anion Gap 12 12 - 20 [facility] Urea Nitrogen (BUN) 8(L) 9 - 16 mg/dL [facility] Creatinine, Serum 0.66 0.5 - 1.4 mg/dL [facility] Estimated Glomerular Filt Rate >60 [facility] Comment:Chronic Kidney Disea se: Estimated GFR < 60 mL/min/[id number] Kidney Disease: Estimated GFR < 15 mL/min/1.73m2 Glucose 92 60 - 115 mg/dL [facility] Calcium 9.3 8.4 - 10.2 mg/dL [facility] Blood Venous blood specimen / Unknown 09/10/2025 3:51 PM EDT 09/10/2025 6:00 PM EDT us Grace Ramsey VERIFICATION REP LAB BLOOD ORDERABLES Final Resul t Performing Organization Address City/[facility]/ZIP Co de Phone Number [facility] [address] [place] [phone] * (ABNORMAL) C-reactive Protein (09/10/2025 3:51 PM EDT) C Reactive Protein 5.36(H) < or = 0.50 mg/dL [facility] Blood Venous blood specimen / Unknown 09/10/2025 3:51 PM EDT 09/10/2025 6:00 PM EDT us Grace Ramsey VERIFICATION REP LAB BLOOD ORDERABLES Final Resul t Performing Organization Address [facility]/ZIP Co de Phone Number [facility] [address] [place] [phone] * (ABNORMAL) Sed Rate by Modified Westergren (09/10/2025 3:51 PM EDT) Pathologist [facility] Erythrocyte Sedimentation Rate 58(H) 0 - 20 MM/HR [facility] Comment:Patients with polycy themia and many hemoglobin abnormalitiesmay have depressed sed rates whereas patients with anemiamay have elevated sed rates. Blood Venous blood specimen / Unknown 09/10/2025 3:51 PM EDT 09/10/2025 6:00 PM EDT us Grace Ramsey VERIFICATION REP LAB BLOOD ORDERABLES Final Resul t [facility] [address] [place] [phone] [phone] * (ABNORMAL) CBC auto differential (09/10/2025 3:51 PM EDT) [facility] White Blood Count 6.4 4.8 - 10.8 X10*3/uL [facility] Red Blood Count 4.49 4.20 - 5.50 X10*6/uL [facility] Hemoglobin 12.2 12.0 - 16.0 g/dl [facility] Hematocrit 39.8 37.0 - 47.0 % [facility] Mean Corpuscular Volume 88.6 80.0 - 98.0 fL [facility] Mean Corpuscular Hemoglobin 27.2 27.0 - 33.0 pg [facility] Mean Corpuscular HGB Conc 30.7(L) 31.0 - 35.0 g/dl [facility] Red Cell Distribution Width 12.9 11.0 - 16.0 % [facility] Platelet Count 266 160 - 400 X10*3/uL [facility] Mean Platelet Volume 12.4(H) 9.4 - 12.3 fL [facility] Neutrophils Percent Auto 54.5 45 - 73 % [facility] Imm Gran Pct Auto 0.3 0.0 - 0.4 % [facility] Lymphocytes Percent Auto 35.9 20 - 40 % [facility] Monocytes Percent Auto 6.6 2 - 11 % [facility] Eosinophils Percent Auto 1.3 0 - 4 % [facility] Basophils Percent Auto 1.4 0 - 2 % [facility] NRBC Pct Auto 0.0 0.0 - 0.2 /100WBC [facility] Neutrophils Absolute Auto 3.5 2.0 - 8.3 x10*3/uL [facility] Imm Gran Abs Auto 0.02 0.00 - 0.03 X10*3/uL [facility] Lymphocytes Absolute Auto 2.3 1.2 - 4.9 X10*3/uL [facility] Monocytes Absolute Auto 0.4 0.1 - 1.2 X10*3/uL [facility] Eosinophils Absolute Auto 0.1 0.0 - 0.4 X10*3/uL [facility] Basophils Absolute Auto 0.1 0.0 - 0.2 X10*3/uL [facility] NRBC Abs Auto 0.000 0.0 - 0.012 X10*3/uL [facility] Blood Venous blood specimen / Unknown 09/10/2025 3:51 PM EDT 09/10/2025 6:00 PM EDT us Grace Ramsey VERIFICATION REP LAB BLOOD ORDERABLES Final Resul t [facility] [address] [place] [phone] [phone] documented in this encounter Visit Diagnoses Diagnosis Pigmented villonodular synovitis of right knee- Primary Acute pain of right knee documented in this encounter Additional Health Concerns Assessment Noted Time PHQ-9 Depression Total Score: 0 06/27/20 25 10:35 AM EDT documented as of this encounter Care Teams Solar Energy Systems Designer Relationship Specialty Start Date End Date Name, MD Cedric [address] [place] [address] PCP - General Family Medicine 04/06/16 documented as of this encounter
--- NOTE | ~2025-09-11 | NM_ITS ---
EXAMINATION: NM KIDNEY IMAGING CLINICAL INFORMATION: Unspecified hydronephrosis. COMPARISON: CT abdomen and pelvis 08/29/2025 and ultrasound kidneys bilateral 04/15/2025 TECHNIQUE: Following intravenous administration of 10 mCi of 99m technetium DTPA, perfusion followed by static images over the posterior abdomen were obtained. At 30 minutes 31 mg of Lasix was administered and further imaging obtained for 30 minutes. FINDINGS: On perfusion there is symmetrical flow seen to both kidneys. On static images there is normal bilateral cortical uptake with progressive accumulation of isotope activity in the right kidney pelvis. Post Lasix there is complete emptying of the kidney pelvis with no obstruction seen on either side. On split renal function right kidney contributes 56.2% and left kidney contributes 42.8% of the total function. Time to peak cortical uptake right kidney is 2 minutes and left kidney is 15 minutes. Post Lasix, time from Lasix to half Lasix right kidney excretion is 17.8 minutes the left kidney is 17.3 minutes. There is no obstruction or hydronephrosis seen on either side. Enlarged right kidney pelvis on CT abdomen exam 08/29/2025 is likely an extrarenal kidney pelvis. No dilated ureter seen. NM/NM renal flow w pharm int IMPRESSION: Normal bilateral cortical function with the right kidney cannot representing slightly more than left kidney function. There is extrarenal right kidney pelvis with no evidence of pelvic or ureteral obstruction post-Lasix on either side. Electronically signed by: James Llanos MD 09/12/2025 07:22 AM EDT
--- OUTSIDE RECORDS SUMMARY | 2025-09-11 17:36 | XMS_ITS | Clinical Summary ---
Author Organization [facility] Address [address] [facility] [place] [address] Phone Care Team Providers Care Underwriting Support Specialist Name Role Phone Name, Cedric NICK Primary Care Provider [phone] Allergies Active Allergy Reactions Criticality Noted Date [...] each day 09/30/2021 Active Deep Sea Nasal [place] 0.65 % nasal spray 11/04/2021 Active polyethylene [...] Upcoming Encounters Date Type Department Care Team ([facility] st Contact Info) Description 09/20/2025 Orders Only [facility] [address] [phone] Buddy Ortiz MD [address] [phone] Nephrolithiasis; Proteinuria, not otherwise specified; Vitamin D deficiency, not otherwise specified 09/23/2025 10:00 AM EST Office Visit [facility] [address] [phone] Buddy Ortiz MD [address] [phone] Health Maintenance Due Date Last Done Comments Breast Cancer Screening 1968 Pneumococcal Vaccine: 50+ Ye ars (1 of 2 - PCV) 1987 Colorectal Cancer Screening: Annual FOBT 2017 Colorectal Cancer Screening: Colonoscopy 2017 Colorectal Cancer Screening: Sigmoidoscopy 2017 Hepatitis B Vaccine (3 of 3 - 19+ 3-dose series) 07/27/2023 03/29/2023, 01/24/2023 Influenza Vaccine (#1) 2025 , 09/16/2020, 08/09/2018, Additional history exists [place] [address] ([id number]) [facility] Plan ([id number]) Care Teams Underwriting Support Specialist Relationship Specialty Start Date End Date Name, MD Cedric [address] [place] [id number] PCP - General Internal Medicine 02/02/22
--- OUTSIDE RECORDS SUMMARY | 2025-09-11 17:36 | XMS_ITS | Encounter Summary ---
Author Organization [email or web address] Address [address] [place] [address] [address] [place] [address] Care Team Providers Care Hvac Maintenance Technician Name Role Phone Name, Cedric NICK Primary Care Provider [phone] Encounter Details Date Type Department Care Team (Latest Contact Info) Description 04/01/2022 Abstract [facility] CONVERSIONS Dental, Provider, DDS Social History [...] 3:00 PM EST Office Visit [facility] ADULT DENTAL [address] [place] [address] Josh Dialaris [address] [place] [address] 09/26/2025 10:30 AM EST Office Visit [facility] MEDICINE [address] [place] [address] Cedric Liao MD [address] [place] [phone] documented as of this encounter Visit Diagnoses Not on filedocumented in this encounter Care Teams Hvac Maintenance Technician Relationship Specialty Start Date End Date Cedric Liao MD [address] [place] [address] PCP - General Family Medicine 04/06/16 documented as of this encounter
--- OUTSIDE RECORDS SUMMARY | 2025-09-11 17:36 | XMS_ITS | Encounter Summary ---
Author Organization [facility] Address [address] [place] [address] Care Team Providers Care Coat Feller Name Role Phone Name, Cedric NICK Primary Care Provider [phone] Encounter Details Date Type Department Care Team [...] Description 09/18/2025 3:00 PM EST Office Visit [facility] ADULT DENTAL [address] [place] [address] Jayro, Iza [address] [place] [address] 09/26/2025 10:30 AM EST Office Visit [facility] MEDICINE [address] [place] [address] Name, MD Cedric [address] [place] [phone] documented as of this encounter Visit Diagnoses Not on filedocumented in this encounter Additional Health Concerns Assessment Noted Time PHQ-9 Depression Total Score: 0 06/27/20 25 10:35 AM EDT documented as of this encounter Care Teams Coat Feller Relationship Specialty Start Date End Date NameCedric MD [address] [place] [id number] PCP - General Family Medicine 04/06/16 documented as of this encounter
--- OUTSIDE RECORDS SUMMARY | 2025-09-11 17:36 | XMS_ITS | Clinical Summary ---
Author Organization [employer] Address [address] [place] [address] Care Team Providers Care Motor Checker Name Role Phone Name, Cedric NICK Primary Care Provider [phone] Allergies Active Allergy Reactions Criticality Noted Date [...] IN WATER AND TAKE ONCE DIRECTED BY [facility] 05/31/20 23 Active Acetaminophen Extra [...] directed by MD. 30 patch 09/10/20 25 Active traMADol (Ultram) 50 MG tabletIndications: Pigmented villonodular synovitis of right knee Take 1 tablet (50 mg) by mouth every 6 (six) hours if needed for severe pain for up to 5 days. 15 tablet 09/10/20 25 Active Active Problems Problem Noted Date Diagnosed Date Pigmented villonodular synovitis of right knee 0 06/27/2025 Assessment & Plan (09/10/2025 3:53 PM EDT): Orders: Referral to Orthopaedic Surgery; [...] right knee 02/05/2025 Assessment & Plan (09/10/2025 3:53 PM EDT): Orders: Referral to Orthopaedic Surgery; [...] onet of right knee pain. Seen at [facility] ER 02/02/2025. Work up included a RLE [...] Encounters Date Type Department Care Team Description 09/11/2025 Results Follow-Up [facility] [address] [place] [address] Deya Melendez MA CBC auto differential, Sed Rate by Modified Westergren, C-reactive Protein, Basic Metabolic Panel 09/10/2025 1:30 PM EDT Office Visit [facility] [address] [place] [address] Grace Ramsey, ALLIE 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); Acute pain of right knee 09/10/2025 Travel 09/09/2025 Patient Outreach [facility] [address] [place] [address] Cedric Liao MD 09/09/[address] [address] Cedric Liao MD ER Follow-up 09/05/[address] [address] Cedric Liao MD Nurse Triage 08/30/[address] [address] Cedric Liao MD Nurse Triage 08/29/2025 Orders Only GENERIC EXTERNAL DATA DEPARTMENT Provider, Generic External Data 07/19/2025 9:40 AM EDT Office Visit [facility] [address] [place] [phone] David Hebert MD Acute pain of both shoulders (Primary Dx) 07/19/2025 Travel 07/09/2025 Refill [facility] [address] [place] [address] Cedric Liao MD 06/27/2025 10:30 AM EDT Office Visit [address] [address] Cedric Liao MD Proteinuria, unspecified type (Primary Dx); Pigmented villonodular synovitis of right knee 06/27/2025 Travel 06/26/[address] [address] Jen Muñoz MA Chart Prep 06/11/2025 Orders [...] Description 09/18/2025 3:00 PM EST Office Visit [facility] [address] [place] [address] Jayro, Iza [address] [place] [address] 09/26/2025 10:30 AM EST Office Visit [facility] [address] [place] [address] Name, MD Cedric [address] [place] [address] Health Maintenance Due Date Last Done Comments [...] Associated Diagnosis Comments BASIC METABOLIC PANEL Routine 09/10/2025 3:51 PM EDT Acute pain of right knee Pigmented villonodular synovitis of right knee C-REACTIVE PROTEIN Routine 09/10/2025 3: 51 PM EDT Acute pain of right knee Pigmented villonodular synovitis of right knee SED RATE BY MODIFIED WESTERGREN Routine 09/10/2025 3:51 PM EDT Acute pain of right knee Pigmented villonodular synovitis of right knee CBC WITH AUTO DIFFERENTIAL Routine 09/10/2025 3:51 PM EDT Acute pain of right knee Pigmented villonodular synovitis of right knee XR KNEE 4+ VIEWS RIGHT Routine 09/06/2025 7:14 PM EDT LACTIC ACID Routine 08/29/2025 11:54 AM EDT BLOOD CULTURE (SECOND) Routine 08/29/2025 11:54 AM EDT BLOOD CULTURE (FIRST) Routine [...] Recently Relevant to Health Maintenance Results * (ABNORMAL) CBC auto differential (09/10/2025 3:51 PM EDT) Only the most recent of2 resultswithin the time period is included. White Blood Count 6.4 4.8 - 10.8 X10*3/uL [facility] Red Blood Count 4.49 4.20 - 5.50 X10*6/uL [facility] Hemoglobin 12.2 12.0 - 16.0 g/dl [facility] Hematocrit 39.8 37.0 - 47.0 % [facility] Mean Corpuscular Volume 88.6 80.0 - 98.0 fL [facility] Mean Corpuscular Hemoglobin 27.2 27.0 - 33.0 pg [facility] Mean Corpuscular HGB Conc 30.7(L) 31.0 - 35.0 g/dl [facility] Red Cell Distribution Width 12.9 11.0 - 16.0 % [facility] Platelet Count 266 160 - 400 X10*3/uL [facility] Mean Platelet Volume 12.4(H) 9.4 - 12.3 fL [facility] Neutrophils Percent Auto 54.5 45 - 73 % [facility] Imm Gran Pct Auto 0.3 0.0 - 0.4 % [facility] Lymphocytes Percent Auto 35.9 20 - 40 % [facility] Monocytes Percent Auto 6.6 2 - 11 % [facility] Eosinophils Percent Auto 1.3 0 - 4 % [facility] Basophils Percent Auto 1.4 0 - 2 % [facility] NRBC Pct Auto 0.0 0.0 - 0.2 /100WBC [facility] Neutrophils Absolute Auto 3.5 2.0 - 8.3 x10*3/uL [facility] Imm Gran Abs Auto 0.02 0.00 - 0.03 X10*3/uL [facility] Lymphocytes Absolute Auto 2.3 1.2 - 4.9 X10*3/uL [facility] Monocytes Absolute Auto 0.4 0.1 - 1.2 X10*3/uL [facility] Eosinophils Absolute Auto 0.1 0.0 - 0.4 X10*3/uL [facility] Basophils Absolute Auto 0.1 0.0 - 0.2 X10*3/uL [facility] NRBC Abs Auto 0.000 0.0 - 0.012 X10*3/uL [facility] Blood Venous blood specimen / Unknown 09/10/2025 3:51 PM EDT 09/10/2025 6:00 PM EDT us Grace Ramsey TEMPERATURE CONTROL INSPECTOR LAB BLOOD ORDERABLES Final Resul t Performing Organization Address [facility] de Phone Number [facility] [address] [place] [phone] * (ABNORMAL) Sed Rate by Modified Westergren (09/10/2025 3:51 PM EDT) Pathologist [facility] Erythrocyte Sedimentation Rate 58(H) 0 - 20 MM/HR [facility] Comment:Patients with polycy themia and many hemoglobin abnormalitiesmay have depressed sed rates whereas patients with anemiamay have elevated sed rates. Blood Venous blood specimen / Unknown 09/10/2025 3:51 PM EDT 09/10/2025 6:00 PM EDT Grace Ramsey TEMPERATURE CONTROL INSPECTOR LAB BLOOD ORDERABLES Final Resul t Performing Organization Address [facility] Phone Number [facility] [address] [place] [phone] * (ABNORMAL) C-reactive Protein (09/10/2025 3:51 PM EDT) [facility] C Reactive Protein 5.36(H) < or = 0.50 mg/dL [facility] Blood Venous blood specimen / Unknown 09/10/2025 3:51 PM EDT 09/10/2025 6:00 PM EDT Grace Ramsey TEMPERATURE CONTROL INSPECTOR LAB BLOOD ORDERABLES Final Resul t Performing Organization Address [facility] de Phone Number [facility] [address] [place] [phone] * (ABNORMAL) Basic Metabolic Panel (09/10/2025 3:51 PM EDT) Only the most recent of2 resultswithin the time period is included. Pathologist [facility] Sodium 139 135 - 145 mmol/L [facility] Potassium 4.4 3.3 - 5.1 mmol/L [facility] Chloride 103 96 - 108 mmol/L [facility] Carbon Dioxide 28 22 - 29 mmol/L [facility] Anion Gap 12 12 - 20 [facility] Urea Nitrogen (BUN) 8(L) 9 - 16 mg/dL [facility] Creatinine, Serum 0.66 0.5 - 1.4 mg/dL [facility] Estimated Glomerular Filt Rate >60 [facility] Comment:Chronic Kidney Disea se: Estimated GFR < 60 mL/min/1.74z5Dltbik Kidney Disease: Estimated GFR < 15 mL/min/1.73m2 Glucose 92 60 - 115 mg/dL [facility] Calcium 9.3 8.4 - 10.2 mg/dL [facility] Blood Venous blood specimen / Unknown 09/10/2025 3:51 PM EDT 09/10/2025 6:00 PM EDT us Grace Ramsey NP LAB BLOOD ORDERABLES Final Resul t Performing Organization Address City/State/[facility] Co de Phone Number [facility] [address] [place] [phone] * XR Knee 4+ Views Right (09/06/2025 7:14 PM EDT) Anatomical Region Laterality Modality Lower Extremities, Knee Right Radiogra phic Imaging 09/06/2025 7:14 PM EDT Narrative 09/06/2025 7:16 PM EDT [address] [address] XRay Report Signed Patient: Maryann Tan MR #: [id number] : 1970 Acct:[id number] Age/Sex: 55 / F ADM Date: 09/06/25 Loc: HO.ED Attending Dr: Ordering Physician: Marichuy Roa NP Date of Service: 09/06/25 Procedure(s): XR knee RT 4V Accession Number(s): [id number] cc: Name,Cedric NICK; Marichuy Roa NP Reason [...] in OV> 09/06/251914 DD/ 13 TD/TT: 09/06/251913 Turbine Inspector: Procedure Note Donotuseinterpreter, Image - 09/06/2025 [place] [address] XRay Report Signed Patient: Maryann Tan AMR #: [id number] : 1970Acct:[id number] Age/Sex: 55 / FADM Date: 09/06/25 Loc: HO.ED Attending Dr: Ordering Physician: Marichuy Roa NP Date of Service: 09/06/25 Procedure(s): XR knee RT 4V Accession Number(s): [id number] cc: Name,Cedric NICK; Marichuy Roa NP Reason [...] in OV> 09/06/251914 DD/ 13 TD/TT: 09/06/251913 Turbine Inspector: [facility] External Provider IMG XR PROCEDURES Final Result * Blood Culture (First) (08/29/2025 11:54 AM EDT) Blood Venous blood specimen / Unknown 08/29/2025 11:54 AM EDT 08/29/2025 12:01 PM EDT Comment:Blood Narrative [facility] - 09/03/2025 2:02 PM EDT Blood Culture (First) No growth after 5 days. Specimen Source: Blood Generic External Data Provider LAB MICROBIOLOGY - GENERAL ORDERABLES Final Result Performing Organization Address [facility] Co de Phone Number [facility] [address] [place] [phone] * Blood Culture (Second) (08/29/2025 11:54 AM EDT) Blood Venous blood specimen / Unknown 08/29/2025 11:54 AM EDT 08/29/2025 12:59 PM EDT Comment:Blood Narrative [facility] - 09/03/2025 2:59 PM EDT Blood Culture (Second) No growth after 5 days. Specimen Source: Blood Generic External Data Provider LAB MICROBIOLOGY - GENERAL ORDERABLES Final Result Performing Organization Address [facility] de Phone Number [facility] [address] [place] [phone] * Lactic Acid (08/29/2025 11:54 AM EDT) Lactic Acid 1.5 0.5 - 2.0 mmol/L [facility] 08/29/2025 11:5 4 AM EDT 08/29/2025 12:01 PM EDT Generic External Data Provider LAB BLOOD ORDERAB LES Final Result Performing Organization Address [facility] Co de Phone Number [facility] [address] [place] [phone] * CT Abdomen Pelvis w/o Contrast (08/29/2025 11:40 AM EDT) Anatomical Region Laterality Modality Body, Pelvis, Abdomen Computed T omography 08/29/2025 11:4 0 AM EDT Narrative 08/29/2025 12:10 PM EDT [address] [address] [address] Scan Report Signed Patient: Maryann Tan MR #: [id number] : 1970 Acct:[id number] Age/Sex: 55 / F ADM Date: 08/29/25 Loc: HO.ED Attending Dr: Ordering Physician: Galindo Stephens Date of Service: 08/29/25 Procedure(s): CT abdomen pelvis wo IV con Accession Number(s): [id number] cc: Galindo Stephens; Name,Cedric NICK Report Number: [id number]: Total DLP = 420.00 mGy-cm Reason for [...] 08/29/25 1207 DD/ 1140 TD/TT: 08/29/25 1150 Turbine Inspector: Procedure Note Donotuseinterpreter, Image - 08/29/[address] [address] [address] Scan Report Signed Patient: Maryann Tan AMR #: [id number] : 1970Acct:[id number] Age/Sex: 55 / FADM Date: 08/29/25 Loc: HO.ED Attending Dr: Ordering Physician: Galindo Stephens Date of Service: 08/29/25 Procedure(s): CT abdomen pelvis wo IV con Accession Number(s): [id number] cc: Galindo Stephens; Name,Cedric NICK Report Number: [id number]: Total DLP = 420.00 mGy-cm Reason for [...] 08/29/25 1207 DD/ 1140 TD/TT: 08/29/25 1150 Turbine Inspector: [facility] External Provider IMG CT PROCEDURES Edited Result - Final * HCG, Qualitative, Urine (08/29/2025 11:35 AM EDT) Pathologist [facility] Urine NEGATIVE NEGATIVE [facility] Comment:This test was develo ped to detect early . Falsenegative results may occur after the 5th - 7th week ofpregnancy when using this test method. If clinicallyindicated, consider a serum hCG. 08/29/2025 11:3 5 AM EDT 08/29/2025 11:37 AM EDT Generic External Data Provider LAB URINE ORDERAB LES Final Result [facility] [address] [place] [phone] * hCG, Total, Quantitative (08/29/2025 11:19 AM EDT) HCG Quantitative 5 mIU/mL [facility] Comment:Weeks post LMP Appro ximate hCG(Last Menstrual Period) Range (mIU/ml)3 - 4 weeks 9 - 1304 - 5 weeks 75 - 2,6005 - 6 weeks 850 - 20,8006 - 7 weeks 4000 - 100,2007 - 12 weeks 11,500 - 289,66939 - 16 weeks 18,300 - 137,61135 - 29 weeks (2nd trimester) 1,400 - 53,18284 - 41 weeks (3rd trimester) 940 - [...] Provider LAB BLOOD ORDERAB LES Final Result [facility] [address] [place] [phone] * (ABNORMAL) Comprehensive Metabolic Panel (08/29/2025 11:19 AM EDT) Sodium 138 135 - 145 mmol/L [facility] Potassium 4.0 3.3 - 5.1 mmol/L [facility] Chloride 102 96 - 108 mmol/L [facility] Carbon Dioxide 27 22 - 29 mmol/L [facility] Anion Gap 13 12 - 20 [facility] Urea Nitrogen (BUN) 11 9 - 16 mg/dL [facility] Creatinine, Serum 0.82 0.5 - 1.4 mg/dL [facility] Creatinine Clr Calc Pharmacy 63.2 [facility] Comment:Provided height and weight: 154.94 cm,60.7 kg.eGFR (calculated from the MDRD study equation) and eCrCl(calculated from the Cockcroft-Gault equation) are based ondifferent parameters and may not yield comparable results.If eCrCl result is absurd, please check patient'sheight/weight. Estimated Glomerular Filt Rate >60 [facility] Comment:Chronic Kidney Disea se: Estimated GFR < 60 mL/min/1.42m3Agtpgz Kidney Disease: Estimated GFR < 15 mL/min/1.73m2 Glucose 98 60 - 115 mg/dL [facility] Calcium 9.8 8.4 - 10.2 mg/dL [facility] Bilirubin, Total 1.4(H) 0.0 - 1.0 mg/dL [facility] Aspartate Amino Transferase 33(H) 5 - 31 U/L [facility] Alanine Aminotransferase 57(H) 0 - 31 U/L [facility] Total Protein 7.7 6.5 - 8.0 g/dL [facility] Albumin Level 4.6 3.5 - 5.0 g/dL [facility] Alkaline Phosphatase 101 39 - 117 U/L [facility] 08/29/2025 11:1 9 AM EDT 08/29/2025 11:22 AM EDT us Generic External Data Provider LAB BLOOD ORDERAB LES Final Result Performing Organization Address City/State/[facility] Co de Phone Number [facility] [address] [place] [phone] * Influenza A B2 ID NOW (Whistle) (08/29/2025 11:16 AM EDT) IDNOW SERIAL# [id number] [facility] Influenza A Negative Negative [facility] Influenza B2 Negative Negative [facility] Influenza A B2 Note See Note [facility] Comment:The Timmons ID NOW In fluenza [...] GENERAL ORDERABLES Final Result Performing Organization Address City/[facility]/ZIP Co de Phone Number [facility] [address] [place] [phone] * COVID-19 ID NOW (TIMMONS) (08/29/2025 11:16 AM EDT) IDNOW SERIAL# [id number] [facility] COVID-19 TEST Negative Negative [facility] COVID-19 NOTE See Note [facility] Comment: Results are for the identification of SARS-CoV2 RNA. TheSARS-CoV2 RNA is generally detectable in respiratory samplesduring the acute phase of infection. Positive results areindicative of the presence of SARS-CoV-2 RNA; clinicalcorrelation with patient history and other diagnosticinformation is necessary to determine patient infectionstatus. Positive results do not rule out bacterial infectionor co- infection with other viruses.Testing facilities within the [facility] and itsterritories are required [...] GNOSTICS ORDERABLES Final Result Performing Organization Address City/[facility]/ZIP Co de Phone Number [facility] [address] [place] [phone] * (ABNORMAL) Urinalysis, Complete, with Reflex to Culture (08/29/2025 11:16 AM EDT) Color Urine Yellow [facility] Appearance Urine Clear [facility] PH 6.5 5.0 - 9.0 [facility] Glucose Urine UA Negative Negative mg/dL [facility] Urine Blood Trace(A) Negative [facility] Specific [place] - Urine 1.015 1.005 - 1.025 [facility] Urine Protein 300 (3+)(A) Neg-Trace mg/dL [facility] Urine Ketones Negative Negative mg/dL [facility] Nitrite Urine Negative Negative [facility] Leukocyte Esterase Urine Moderate (2+)(A) Negative [facility] RBC Urine 0-2 0 - 2 /HPF [facility] Urine WBC 21-50(A) 0 - 5 /HPF [facility] Urine Squamous Epithelial Cell 6-10 0 - 2 /HPF [facility] Urine Bacteria None Seen None Seen [facility] Hyaline Casts, Urine 0-2 0 - 2 /LPF [facility] 08/29/2025 11:1 6 AM EDT 08/29/2025 11:22 AM EDT Narrative [facility] - 08/29/2025 11:36 AM EDT [id number], Clean Catch us Generic External Data Provider LAB URINE ORDERAB LES Final Result Performing Organization Address [facility]/State/[facility] Co de Phone Number [facility] [address] [place] [phone] * Culture, Urine, Routine (08/29/2025 12:00 AM EDT) Urine Urine specimen obtained by clean catch procedure / Unknown 08/29/2025 08/29/2025 Comment:[facility] - 08/30/2025 11:51 AM EDT Strep agalactiae (Grp B) Quant 10,000 to 50,000 cfu/mL Susc N/A Susceptibility not routinely performed on this isolate. Specimen Source: Urine clean catch Generic External Data Provider LAB MICROBIOLOGY - GENERAL ORDERABLES Final Result Performing Organization Address [facility] Co de Phone Number [facility] [address] [place] [phone] * (ABNORMAL) Albumin, Random Urine W/Creatinine (06/27/2025 12:00 AM EDT) Creatinine, Urine 48.89 mg/dL [facility] Microalbumin Urine 442.0 mg/L [facility] Microalbum Creatinine Ratio Ur 904.0(H) <30 ug/mg cr [facility] Comment:Albumin/Creatinine R atio Reference Ranges: Normal: < 30 ug/mg creatinine Microalbuminuria: 30 - 300 ug/mg creatinineClinical Albuminuria: > 300 ug/mg creatinine Urine (Urine, Random) 06/27/2025 06/27/2025 Cedric Liao MD LAB URINE ORDERABLES Final Resul t Performing Organization Address [facility] Co de Phone Number [facility] [address] [place] [phone] * Hematoxylin and Eosin Stain (06/11/2025 11:24 AM EDT) 06/11/2025 11:2 4 AM EDT 06/11/2025 2:20 PM EDT Narrative [facility] - 06/12/2025 12:27 PM EDT ----- ------- Name: Maryann Tan Age/Sex: 55/F : 1970 Unit#: [id number] Attend Dr: Delbert Simons MD Re06/11/25 Status: DEP REF Location: [facility] Disch: ----- ------- SPEC : [id number] RECD: 06/11/25 STATUS: ELIZABETH LUND NUM: [id number] EILEEN: 06/11/[address] [facility] [address]: Delbert Simons MD ENTERED: 06/11/25 [...] microscopic examination, 1 piece in cassette B. ([facility]) Special studies ordered and performed: PAS-F on A1 and B1. IHC S/NG Disclaimer NOTE: Unless otherwise stated, all tissue is formalin-fixed and paraffin-embedded. Some or all of the immunohistochemical tests reported herein may have been developed and their performance characteristics determined by [facility]. They have not been cleared [...] Maryann Tan Age/Sex: 55/F : 1970 Unit#: [id number] Attend Dr: Delbert Simons MD Re06/11/25 Status: DEP REF Location: [facility] Disch: ----- ------- SPEC : [id number] RECD: 06/11/25 STATUS: ELIZABETH LUND NUM: [id number] EILEEN: 06/11/[address] [facility] [address]: Delbert Simons MD ENTERED: 06/11/25 SP TYPE: Surgical OTHR DR: Cedric Liao MD ORDERED: HE Stain/6, Gross Micro L4/2, Specials Gr. 1/2, PASF/2 Copies To: Cedric Liao MD [address] [place] [phone] Delbert Simons MD [facility] [place] [facility] [address] [place] [address] Drive [address] [place] [phone] ----- ------- Signed (signature on file) Nithya [place] 06/12/25 1227 ----- ------- END OF REPORT us Generic External Data Provider LAB BLOOD ORDERAB LES Final Result Performing Organization Address City/State/[facility] Co de Phone Number [facility] [address] [place] [phone] * BI Mammogram Screening Tomosynthesis Bilateral (05/28/2025 10:12 AM EDT) Anatomical Region Laterality Modality Breast Bilateral Mammography 05/28/2025 10:1 2 AM EDT Narrative 06/10/2025 9:26 AM EDT [facility] [address] [place] [address] Mammography Report Signed Patient: Maryann Tan MR #: [id number] : 1970 Acct:[id number] Age/Sex: 55 / F ADM Date: 05/28/25 Loc: [facility] Attending Dr: Cedric Liao MD Ordering Physician: Cedric Liao MD Results: 1Negative Date of Service: 05/28/25 Follow Up: 1 Year From Orig inal Mammogram Procedure(s): MM tomosynthesis screening BI Accession Number(s): [id number] cc: Cedric Liao MD EXAMINATION: MM SCREENING [...] 06/10/25 0923 DD/ 1012 TD/TT: 05/28/25 1025 Turbine Inspector: Procedure Note Donotuseinterpreter, Image - 06/10/2025 [facility] [address] [place] [address] Mammography Report Signed Patient: Maryann Tan AMR #: [id number] : 1970Acct:[id number] Age/Sex: 55 / FADM Date: 05/28/25 Loc: EMILO Attending Dr: Cedric Liao MD Ordering Physician: Cedric Liao MDRedgardoults: 1Negative Date of Service: 05/28/25Follow Up: 1 Year From Orig ina Mammogram Procedure(s): MM tomosynthesis screening BI Accession Number(s): [id number] cc: Cedric Liao MD EXAMINATION: MM SCREENING [...] 06/10/25 0923 DD/ 1012 TD/TT: 05/28/25 1025 Turbine Inspector: us Cedric Liao MD IMG BI PROCEDURES Final Result * Hepatitis C Antibody with Reflex to HCV, RNA, Quantitative, Real-Time PCR (10/03/2024 11:20 AM EST) Hepatitis C Antibody Nonreactive Nonreactive [facility] Comment:Antibodies to HCV no t detected; does not exclude early acuteHCV infection. Blood Venous blood specimen / Unknown 10/03/2024 11:20 AM EST 10/03/2024 1:16 PM EST us Cedric Liao MD LAB BLOOD ORDERABLES Final Resul t [facility] [address] [place] [address] [phone] * HIV-1/2 Antigen and Antibodies, Fourth Generation, with Reflexes (10/03/2024 11:20 AM EST) HIV AB/AG Nonreactive Nonreactive [facility] Comment:HIV-1 p24 Ag and/or HIV-1/HIV-2 Ab not detected.A test result that is nonreactive does not exclude thepossibility of exposure to or infection with HIV-1 and/orHIV-2. Nonreactive results in this assay for individualswith prior exposure to HIV-1 and/or HIV-2 may be due toantigen and antibody levels that are below the limit ofdetection of this assay.The [employer] HIV Ag/Ab Combo assay result andsupplemental assay results should be interpreted inconjunction with the patient's clinical presentation,history and other laboratory results. If the results areinconsistent with clinical evidence, additional testing issuggested to confirm the result. Blood Venous blood specimen / Unknown 10/03/2024 11:20 AM EST 10/03/2024 1:16 PM EST us Cedric Liao MD LAB BLOOD ORDERABLES Final Resul t [facility] [address] [place] [phone] * (ABNORMAL) Colonoscopy (07/21/2023) Colonoscopy Abnormal(A ) Normal us Cedric Liao MD HEALTH MAINTENANCE Final Result * Pap Smear (12/24/2019) Pap Negative for intraephithelial lesion or malignancy Negative for intraephithelial lesion or malignancy, Other HPV Undetected 12/24/2019 Oneida Martins MD HEALTH MAINTENANCE Final Result from Last 3 Months or Most Recently Relevant to Health Maintenance Insurance [facility] * Guarantor: Maryann Tan Account Type Relation to Patient Date of Phone Billing Address Dental Self 1970 [address] [place] [address] DENTAL - HSN PARTIAL (MEDICAID) * Guarantor: Maryann Tan A Account Type Relation to Patient Date of Phone Billing Address Personal/Family Self [address] [place] [address] * Guarantor: Maryann Tan Account Type Relation to Patient Date of Phone Billing Address Personal/Family Self [address] [place] [address] * Guarantor: Maryann Tan Account Type Relation to Patient Date of Phone Billing Address Personal/Family Self [address] [place] [address] Care Teams Motor Checker Relationship Specialty Start Date End Date Name, MD Cedric [address] [place] [address] PCP - General Family Medicine 04/06/16
--- OUTSIDE RECORDS SUMMARY | 2025-09-11 17:36 | XMS_ITS | Encounter Summary ---
Author Organization [employer] Address [address] 7[address] [place] [address] Care Team Providers Care Mill Machinist Name Role Phone Name, Cedric NICK Primary Care Provider [phone] Encounter Details Date Type Department Care Team ([facility] Contact Info) Description 09/23/2023 Orders Only [facility] [address] [place], [place] [phone] Name, MD Cedric [address] [place] [address] Social History Tobacco Use Types Packs/Day Years [...] 3:00 PM EST Office Visit [facility] ADULT DENT[facility] [address] [place] [address] Jayro, Iza [address] [place] [address] 09/26/2025 10:30 AM EST Office Visit [facility] [address] [place] [address] Name, MD Cedric [address] [place] [address] documented as of this encounter Visit Diagnoses Not on filedocumented in this encounter Additional Health Concerns Assessment Noted Time PHQ-9 Depression Total Score: 0 11/19/19 23 1:50 PM EST documented as of this encounter Care Teams Mill Machinist Relationship Specialty Start Date End Date Name, MD Cedric [address] [place] [address] PCP - General Family Medicine 04/06/16 documented as of this encounter
--- OUTSIDE RECORDS SUMMARY | 2025-09-11 17:36 | XMS_ITS | Encounter Summary ---
Author Organization [employer] Address [address] [facility] 7 [place] [address] Care Team Providers Care Clay Mine Cutting Machine Operator Name Role Phone Name, Cedric NICK Primary Care Provider [phone] Reason for Visit * Reason Onset Date Comments Results 09/11/2025 Encounter Details Date Type Department Care Team ([facility] st Contact Info) Description 09/11/2025 Results Follow-Up [facility] [address] [place] [address] Deya Melendez MA CBC auto differential, Sed Rate by Modified Westergren, C-reactive Protein, Basic Metabolic Panel Social History Tobacco Use Types Packs/Day Years [...] encounter Miscellaneous Notes * Telephone Encounter - Deya Melnedez MA - 09/11/2025 12:00 PM EDT T/C-Butcher'S Assistant called and informed Patient about previous message. * Telephone Encounter - Deya Melendez MA - 09/11/2025 11:35 AM EDT ----- Message from Grace Ramsey sent at 09/11/2025 11:30 AM EDT ----- Please let pt know no signs of infections, consistent with her dx ----- Message ----- From: Interface, Lab Results In Sent: 09/10/2025 6:27 PM EDT To: Garce Ramsey NP documented in this encounter Plan of Treatment Upcoming Encounters Date Type Department Care Team (Late st Contact Info) Description 09/18/2025 3:00 PM EST Office Visit [facility] ADULT DENTAL [address] [place] [address] Jayro, Iza [address] [place] [address] 09/26/2025 10:30 AM EST Office Visit [facility] [address] [place] [address] Name, MD Cedric [address] [place] [address] documented as of this encounter Visit Diagnoses Not on filedocumented in this encounter Additional Health Concerns Assessment Noted Time PHQ-9 Depression Total Score: 0 06/27/20 25 10:35 AM EDT documented as of this encounter Care Teams Clay Mine Cutting Machine Operator Relationship Specialty Start Date End Date Name, MD Cedric [address] [place] [address] PCP - General Family Medicine 04/06/16 documented as of this encounter
--- OUTSIDE RECORDS SUMMARY | 2025-09-11 17:36 | XMS_ITS | Encounter Summary ---
Author Organization [employer] Address [address] [facility] 7 [place] [address] Care Team Providers Care Germination Testing Manager Name Role Phone Name, Cedric NICK Primary Care Provider [phone] Reason for Visit * Reason Onset Date Comments ER Follow-up 09/09/2025 Encounter Details Date Type Department Care Team ([facility] st Contact Info) Description 09/09/2025 Telephone [facility] [address] [place], [place] [phone] Name, MD Cedric [address] [place] [address] ER Follow-up Social History Tobacco Use Types [...] Leblanc RN - 09/09/2025 1:50 PM EDT [facility] reviewed, pt. In ED 09/06/25 for R knee swelling x 3 days with h/o pigmented villonodular synovitis. X-ray showed moderate joint effusion. Per records, pt. Saw [facility] ortho for this most recently in March but had to be referred to orthopedic museum specialist. Pt. Is not scheduled until November. Prescribed ibuprofen. TC placed to pt. Pt. Reports pain and swelling is worse than when ED. Rates as 10 despite use ofpain medication. Pt. Reports she is able to walk but only for short distances before having to sit down. Pt. Confirms ortho oncology appointment in November in [place]. Pt. Declines evaluation today due to being [...] ED visit on : Date: 09/06/25 Hospital: [facility] Seen for: Mass in the knee Symptomatic Yes Symptom: Knee Pain - Not From Injury Outcome: Schedule an urgent appointment (within 4 hours) or talk to a nurse or provider soon Reason: Swelling Please contact pt at [phone]. (Serbian Speaker) documented in this encounter Plan of Treatment Upcoming Encounters Date Type Department Care Team (Late st Contact Info) Description 09/18/2025 3:00 PM EST Office Visit [facility] ADULT DENTAL [address] [place] [address] Jayro, Iza [address] [place] [address] 09/26/2025 10:30 AM EST Office Visit [facility] [address] [place] [address] Name, MD Cedric [address] [place] [address] documented as of this encounter Visit Diagnoses Not on filedocumented in this encounter Additional Health Concerns Assessment Noted Time PHQ-9 Depression Total Score: 0 06/27/20 10:35 AM EDT documented as of this encounter Care Teams Germination Testing Manager Relationship Specialty Start Date End Date Name, MD Cedric [address] [place] [address] PCP - General Family Medicine 04/06/16 documented as of this encounter
--- OUTSIDE RECORDS SUMMARY | 2025-09-11 17:36 | XMS_ITS | Encounter Summary ---
Author Organization [employer] Address [address] 7[address] [place] [address] Care Team Providers Care Lowerator Operator Name Role Phone Name, Cedric NICK Primary Care Provider [phone] Encounter Details Date Type Department Care Team ([facility] st Contact Info) Description 09/09/[address] [facility] [address] [place], [place] [phone] Name, MD Cedric [address] [place] [address] Social History Tobacco Use Types Packs/Day Years [...] care. Emergency Room Visit Date: 09/06/25 Facility: [facility] Diagnosis: R Leg Swelling Disposition: Discharged home Discharge summary in the chart: Yes Please contact for a telehealth RN visit * Amber David RN - 09/09/2025 1:56 PM EDT Pt seen at [facility] today 09/10/2025 with Grace Ramsey for a sick onsite ED F/U. Pt seen to follow up on ED visit as shown below regarding ED visit on 09/06/2025 for right leg swelling. documented in this encounter Plan of Treatment Upcoming Encounters Date Type Department Care Team (Late st Contact Info) Description 09/18/2025 3:00 PM EST Office Visit [facility] ADULT DENTAL [address] [place] [address] Jayro Iza [address] [place] [address] 09/26/2025 10:30 AM EST Office Visit [facility] MED[facility] [address] [place] [address] Name, MD Cedric [address] [place] [address] documented as of this encounter Visit Diagnoses Not on filedocumented in this encounter Additional Health Concerns Assessment Noted Time PHQ-9 Depression Total Score: 0 06/27/20 25 10:35 AM EDT documented as of this encounter Care Teams Lowerator Operator Relationship Specialty Start Date End Date Name, MD Cedric [address] [place] [address] PCP - General Family Medicine 04/06/16 documented as of this encounter
--- OUTSIDE RECORDS SUMMARY | 2025-09-11 17:36 | XMS_ITS | Encounter Summary ---
Author Organization [employer] Address [address] [facility] 7t [place] [address] Care Team Providers Care Lawn Service Manager Name Role Phone Name, Cedric NICK Primary Care Provider [phone] Reason for Visit * Reason Comments Med Refill Encounter Details Date Type Department Care Team ([facility] st Contact Info) Description 04/23/2025 Refill [facility] [address] [place] [phone] Name, MD Cedric [address] [place] [address] Social History Tobacco Use Types Packs/Day Years [...] 09/18/2025 3:00 PM EST Office Visit [facility] ADULT DENT[facility] [address] [place] [address] Jayro, Iza [address] [place] [address] 09/26/2025 10:30 AM EST Office Visit [facility] [address] [place] [address] Name, MD Cedric [address] [place] [address] documented as of this encounter Visit Diagnoses Not on filedocumented in this encounter Additional Health Concerns Assessment Noted Time PHQ-9 Depression Total Score: 0 02/20/20 24 10:24 AM EDT documented as of this encounter Care Teams Lawn Service Manager Relationship Specialty Start Date End Date Name, MD Cedric [address] [place] [address] PCP - General Family Medicine 04/06/16 documented as of this encounter
--- OUTSIDE RECORDS SUMMARY | 2025-09-11 17:36 | XMS_ITS | Encounter Summary ---
Author Organization [employer] Address [address] [facility] 7 [place] [address] Care Team Providers Care Sole Stainer Name Role Phone Name, Cedric NICK Primary Care Provider [phone] Encounter Details Date Type Department Care Team (Late st Contact Info) Description 04/25/2023 Abstract [facility] [address] [place] [address] Name, MD Cedric [address] [place] [address] Social History Tobacco Use Types Packs/Day Years [...] Description 09/18/2025 3:00 PM EST Office Visit [facility] ADULT [facility] [address] [place] [address] Iza Dial [address] [place] [address] 09/26/2025 10:30 AM EST Office Visit [facility] [address] [place], [place] [phone] Name, MD Cedric [address] [place] [address] documented as of this encounter Procedures Procedure [...] Recommended 5 year follow up ( [facility]) us Historical Provider HEALTH MAINTENANCE Final Result documented in this encounter Visit Diagnoses Not on filedocumented in this encounter Additional Health Concerns Assessment Noted Time PHQ-9 Depression Total Score: 0 11/19/19 23 1:50 PM EST documented as of this encounter Care Teams Sole Stainer Relationship Specialty Start Date End Date Name, MD [place] [address] PCP - General Family Medicine 04/06/16 documented as of this encounter
--- OUTSIDE RECORDS SUMMARY | 2025-09-11 17:36 | XMS_ITS | Encounter Summary ---
Author Organization [facility] Address [address] [facility] [address] [place] [address] Phone Care Team Providers Care Cycle Touring Guide Name Role Phone Name, Cedric NICK Primary Care Provider [phone] Encounter Details Date Type Department Care Team (Late Contact Info) Description 02/02/2022 Telephone [facility] [address] [facility] [address] [place] [address] Jasiel Oliver, [address] [address] Social History Tobacco Use Types Packs/Day Years [...] send to Dr Liao. Thank you FAX# [phone] documented in this encounter Plan of Treatment Upcoming Encounters Date Type Department Care Team (Late Contact Info) Description 09/20/2025 Orders Only [facility] [address] [facility] [address] [place] [address] Buddy Ortiz MD [address] [facility] [address] [place] [address] Nephrolithiasis; Proteinuria, not otherwise specified; Vitamin D deficiency, not otherwise specified 09/23/2025 10:00 AM EST Office Visit [facility] [address] [phone] Buddy Ortiz MD [address] [place] [phone] documented as of this encounter Visit Diagnoses Not on filedocumented in this encounter Care Teams Cycle Touring Guide Relationship Specialty Start Date End Date Name, MD Cedric [address] [place] [address] PCP - General Internal Medicine 02/02/22 documented as of this encounter
--- OUTSIDE RECORDS SUMMARY | 2025-09-11 17:36 | XMS_ITS | Clinical Summary ---
Author Organization [facility] Address [address] [place] [address] Phone Care Team Providers Care Financial Secretary Name Role Phone Physician, No Pcp Primary [...] Care Team (Late st Contact Info) Description 10/17/2025 11:00 AM EST Consult Orthopedic Oncology - [place] [address] [place] [address] Jarad Quevedo MD [address] [place] [address] Health Maintenance Due Date Last [...] patient's age to complete this topic Insurance [facility] PUBLIC PL[facility] Care Teams Financial Secretary Relationship Specialty Start Date End Date Physician, No Pcp PCP - General 06/14/25
== END ==
LOC: HO.NUCMED 13:46
PROVIDERS: PCP Internal Medicine Geriatric Medicine; Visit Provider Nurse Practitioner Family
DX: N13.30 Unspecified hydronephrosis (principal)
CPT/HCPCS: 78708; A9539; J1938

== ENCOUNTER → 2025-09-11 13:48 | Outpatient (BNV) | payer OTHER, SELFPAY | PROVIDERS: PCP Internal Medicine Geriatric Medicine; Visit Provider Radiology Diagnostic Radiology | DX: N13.30 Unspecified hydronephrosis (principal) | CPT/HCPCS: 78708 ==

== ENCOUNTER 2025-09-12 09:03 | Outpatient (AMB) | payer OTHER, SELFPAY ==
--- OUTSIDE RECORDS SUMMARY | 2025-09-10 13:30 | XMS_ITS | Encounter Summary ---
Author Organization [employer] Address [address] [facility] [address] [place] [address] Care Team Providers Care Space Controller Name Role Phone Name, Cedric NICK Primary Care Provider [phone] Reason for Referral * Medications - Closed Specialty Diagnoses / Procedures Referred By Contac t Referred To Contact Diagnoses Acute pain of right knee Pigmented villonodular synovitis of right knee Grace Ramsey NP [address] [place] [address] Phone: tel: fax: Referral ID Status Reason Start Date Expiration Date Visits Re quested Visits Authorized [id number] Closed 1 1 * Consultation (STAT) - Authorized Specialty Diagnoses / Procedures Referred By Contac t Referred To Contact Orthopaedic Surgery Diagnoses Acute pain of right knee Pigmented villonodular synovitis of right knee Grace Ramsey NP [address] [place] [address] Phone: tel: fax: Referral ID Status Reason Start Date Expiration Date Visits Requested Visits Authorized [id number] Authorized Specialty Services Required 09/10/2026 1 1 Reason for Visit * Reason Comments sick onsite Encounter Details Date Type Department Care Team ([facility] st Contact Info) Description 09/10/2025 1:30 PM EDT Office Visit [facility] [address] [place] [address] Grace Ramsey, LINEN WORKER [address] [place] [address] Pigmented villonodular synovitis of right knee (Primary [...] of this technology: Yes Visit Conducted in: Swedish Translation by: Provided by [employer] Phone Service ID # [id number] [1] Patient Active Problem List Diagnosis Hypothyroidism [...] IN WATER AND TAKE ONCE DIRECTED BY [facility], Disp: , Rfl: Procto-Med [...] Description 09/18/2025 3:00 PM EST Office Visit [facility] [address] [place] [address] Jayro, Iza [address] [place] [address] 09/26/2025 10:30 AM EST Office Visit [facility] [address] [place] [address] Name, MD Cedric [address] [place] [address] Scheduled Referrals Name Type Priority Associated Diagnoses [...] EDT) Sodium 139 135 - 145 mmol/L [facility] Potassium 4.4 3.3 - 5.1 mmol/L [facility] Chloride 103 96 - 108 mmol/L [facility] Carbon Dioxide 28 22 - 29 mmol/L [facility] Anion Gap 12 12 - 20 [facility] Urea Nitrogen (BUN) 8(L) 9 - 16 mg/dL [facility] Creatinine, Serum 0.66 0.5 - 1.4 mg/dL [facility] Estimated Glomerular Filt Rate >60 [facility] Comment:Chronic Kidney Disea se: Estimated GFR < 60 mL/min/[id number] Kidney Disease: Estimated GFR < 15 mL/min/1.73m2 Glucose 92 60 - 115 mg/dL [facility] Calcium 9.3 8.4 - 10.2 mg/dL [facility] Blood Venous blood specimen / Unknown 09/10/2025 3:51 PM EDT 09/10/2025 6:00 PM EDT us Grace Ramsey LINEN WORKER LAB BLOOD ORDERABLES Final Resul t Performing Organization Address City/[facility]/ZIP Co de Phone Number [facility] [address] [place] [phone] * (ABNORMAL) C-reactive Protein (09/10/2025 3:51 PM EDT) C Reactive Protein 5.36(H) < or = 0.50 mg/dL [facility] Blood Venous blood specimen / Unknown 09/10/2025 3:51 PM EDT 09/10/2025 6:00 PM EDT us Grace Ramsey LINEN WORKER LAB BLOOD ORDERABLES Final Resul t Performing Organization Address [facility]/ZIP Co de Phone Number [facility] [address] [place] [phone] * (ABNORMAL) Sed Rate by Modified Westergren (09/10/2025 3:51 PM EDT) Pathologist [facility] Erythrocyte Sedimentation Rate 58(H) 0 - 20 MM/HR [facility] Comment:Patients with polycy themia and many hemoglobin abnormalitiesmay have depressed sed rates whereas patients with anemiamay have elevated sed rates. Blood Venous blood specimen / Unknown 09/10/2025 3:51 PM EDT 09/10/2025 6:00 PM EDT us Grace Ramsey LINEN WORKER LAB BLOOD ORDERABLES Final Resul t [facility] [address] [place] [phone] * (ABNORMAL) CBC auto differential (09/10/2025 3:51 PM EDT) [facility] White Blood Count 6.4 4.8 - 10.8 X10*3/uL [facility] Red Blood Count 4.49 4.20 - 5.50 X10*6/uL [facility] Hemoglobin 12.2 12.0 - 16.0 g/dl [facility] Hematocrit 39.8 37.0 - 47.0 % [facility] Mean Corpuscular Volume 88.6 80.0 - 98.0 fL [facility] Mean Corpuscular Hemoglobin 27.2 27.0 - 33.0 pg [facility] Mean Corpuscular HGB Conc 30.7(L) 31.0 - 35.0 g/dl [facility] Red Cell Distribution Width 12.9 11.0 - 16.0 % [facility] Platelet Count 266 160 - 400 X10*3/uL [facility] Mean Platelet Volume 12.4(H) 9.4 - 12.3 fL [facility] Neutrophils Percent Auto 54.5 45 - 73 % [facility] Imm Gran Pct Auto 0.3 0.0 - 0.4 % [facility] Lymphocytes Percent Auto 35.9 20 - 40 % [facility] Monocytes Percent Auto 6.6 2 - 11 % [facility] Eosinophils Percent Auto 1.3 0 - 4 % [facility] Basophils Percent Auto 1.4 0 - 2 % [facility] NRBC Pct Auto 0.0 0.0 - 0.2 /100WBC [facility] Neutrophils Absolute Auto 3.5 2.0 - 8.3 x10*3/uL [facility] Imm Gran Abs Auto 0.02 0.00 - 0.03 X10*3/uL [facility] Lymphocytes Absolute Auto 2.3 1.2 - 4.9 X10*3/uL [facility] Monocytes Absolute Auto 0.4 0.1 - 1.2 X10*3/uL [facility] Eosinophils Absolute Auto 0.1 0.0 - 0.4 X10*3/uL [facility] Basophils Absolute Auto 0.1 0.0 - 0.2 X10*3/uL [facility] NRBC Abs Auto 0.000 0.0 - 0.012 X10*3/uL [facility] Blood Venous blood specimen / Unknown 09/10/2025 3:51 PM EDT 09/10/2025 6:00 PM EDT us Grace Ramsey LINEN WORKER LAB BLOOD ORDERABLES Final Resul t [facility] [address] [place] [phone] documented in this encounter Visit Diagnoses Diagnosis Pigmented villonodular synovitis of right knee- Primary Acute pain of right knee documented in this encounter Additional Health Concerns Assessment Noted Time PHQ-9 Depression Total Score: 0 06/27/20 25 10:35 AM EDT documented as of this encounter Care Teams Space Controller Relationship Specialty Start Date End Date Name, MD Cedric [address] [place] [address] PCP - General Family Medicine 04/06/16 documented as of this encounter
--- NOTE | 2025-09-12 09:05 | A.OFFVIS_ITS ---
Vital Signs 09/12/25 09:10 Height 5 ft 4 in Weight 135 lb BMI 23.2 Intake Visit Reasons: Right knee pain Intake Note: Maryann is a 55 year old female who presents with complaints of right knee pain and swelling. The patient did have an MRI of her right knee which showed evidence of pigmented villonodular synovitis. She is due to be evaluated by Dr. Quevedo at [facility] in October. She has tried Tylenol and anti-inflammatory medicines which gave her minimal relief. Allergies ceftriaxone Allergy (Severe, Verified 09/06/25 17:14) Anaphylaxis Iodinated Contrast Media (IV Contrast Dye) Allergy (Severe, Verified 09/06/25 17:14) Anaphylaxis magnesium hydroxide (From Milk of Magnesia) Allergy (Intermediate, Verified 09/06/25 17:14) Rash Medication List - Last Reconciled 09/12/25 by Jase Manning MD acetaminophen (Tylenol Extra Strength) 1,000 mg (2 x 500 mg) PO Q6H PRN acetaminophen 500 mg PO Q6H PRN benzonatate 100 mg PO BID PRN bisacodyl 10 mg (2 x 5 mg) PO DAILY carbamide peroxide 6.5% (Debrox) 5 drps otic (ear) right DAILY 4 days clobetasol 0.05% 1 appl topical BID 2 weeks docusate sodium 200 mg (2 x 100 mg) PO BEDTIME empagliflozin (Jardiance) 10 mg PO DAILY hydrocortisone 2.5% (Proctosol HC) 1 appl VT BID-QID PRN hydrocortisone acetate (Anucort-HC) 25 mg VT BID ibuprofen 400 mg PO TID PRN levofloxacin 500 mg PO DAILY levothyroxine 1 tab PO DAILY lisinopril 10 mg PO DAILY metronidazole 500 mg PO BID 7 days naproxen 500 mg PO BID PRN ondansetron 4 mg PO Q6-8H PRN polyethylene glycol 3350 (Miralax) 17 grams PO DAILY terconazole 0.8% 1 appful vaginal BEDTIME 3 days PFSH Medical History Hemorrhoids with complication Endometrial hyperplasia Heartburn GERD (gastroesophageal reflux disease) Skin lesion of back Kidney stone Vitamin D deficiency Hypothyroidism Surgical History Hx of ventral hernia repair (05/31/24) Hx of unilateral oophorectomy History of surgery Tubal ligation status Hx of colonoscopy Hx of esophagogastroduodenoscopy Family History Father Hypertension Respiratory failure Mother Pancreatic cancer Social History Household Members: Spouse Housing: Apartment Are you a primary nurse behavioral health care to a significant other at home: No Do you presently have visiting nurse or other home services: No Alcohol intake: never Patient Tobacco Use Status: Never used Tobacco Second Hand Smoke Exposure: No service: No Current occupational status: employed Current occupation: [employer] program Sexual orientation: Straight/Heterosexual Gender identity: Female Female Reproductive History Menstrual Age of Menarche: 16 Physical Exam Vital Signs: BMI result Body Mass Index 23.2 Extrem Other: Right knee examination shows a mild effusion, mild crepitus with range of motion , no instability Office Procedures AMB Joint Injection/Aspiration Joint Injection/Aspiration Primary Site: right knee Prep: site was prepped using aseptic technique Injected: 40 mg of, DepoMedrol, with 4 mL of and 1% plain lidocaine Procedure: The patient tolerated the procedure well Coding 94392 - Large joint Procedure code (CPT) selection complete Assessment & Plan Assessment & Plan (1) Right knee pain: Code(s): M25.561 - Pain in right knee Category: Medical Plan Mr. Suraj Ruelas presents with right knee pain and swelling due to pigmented villonodular synovitis. The risks and benefits of a right knee cortisone injection were discussed at length with the patient. The patient wished to proceed. Prior to the injection I aspirated 3 cc of blood-tinged fluid from her right knee. The patient tolerated the injection well. She will continue with her activity modifications. She will follow up with Dr. Quevedo as scheduled. Feel free to call me at any time should questions regarding her orthopedic management arise. I spent 21 minutes in reviewing the patient's records and imaging studies, seeing the patient and documenting in the medical record. Orders: Orders AMB Joint Injection/Aspiration Today M25.561 - Pain in right knee Coding Level of Care Code Est Pt Level 3 (88591) Complex EM visit Add On G2211 Diagnoses Right knee pain M25.561 CPT Codes Coding - 98555 Large joint: 64805 - Large joint ([id number])
[2025-09-12 09:10] VITALS: BMI 23.2
--- OUTSIDE RECORDS SUMMARY | 2025-09-12 10:09 | XMS_ITS | Encounter Summary ---
Author Organization [employer] Address [address] [facility] [address] 7[address] [place] [address] Care Team Providers Care Bone Char Operator Name Role Phone Name, Cedric NICK Primary Care Provider [phone] Encounter Details Date Type Department Care Team ([facility] Contact Info) Description 09/23/2023 Orders Only [facility] [address] [place], [place] [phone] Name, MD Cedric [address] [place] [address] Social History Tobacco Use Types Packs/Day Years [...] Description 09/18/2025 3:00 PM EST Office Visit [facility] ADULT DENT[facility] [address] [place] [address] Jayro, Iza [address] [place] [address] 09/26/2025 10:30 AM EST Office Visit [facility] [address] [place] [address] Name, MD Cedric [address] [place] [address] documented as of this encounter Visit Diagnoses Not on filedocumented in this encounter Additional Health Concerns Assessment Noted Time PHQ-9 Depression Total Score: 0 11/19/19 23 1:50 PM EST documented as of this encounter Care Teams Bone Char Operator Relationship Specialty Start Date End Date Name, MD Cedric [address] [place] [address] PCP - General Family Medicine 04/06/16 documented as of this encounter
--- OUTSIDE RECORDS SUMMARY | 2025-09-12 10:09 | XMS_ITS | Encounter Summary ---
Author Organization [employer] Address [address] [place] [address] Care Team Providers Care Ornamental Ironworking Supervisor Name Role Phone Name, Cedric NIKC Primary Care Provider [phone] Encounter Details Date Type Department Care Team ([facility] st Contact Info) Description 09/09/2025 Patient Outreach [facility] MED [facility] PEDS [address] [place], [place] [id number] Name, MD Cedric [address] [place] [address] Social History Tobacco Use Types Packs/Day Years [...] care. Emergency Room Visit Date: 09/06/25 Facility: [facility] Diagnosis: R Leg Swelling Disposition: Discharged home Discharge summary in the chart: Yes Please contact for a telehealth RN visit * Amber David RN - 09/09/2025 1:56 PM EDT Pt seen at [facility] today 09/10/2025 with Grace Ramsey for a sick onsite ED F/U. Pt seen to follow up on ED visit as shown below regarding ED visit on 09/06/2025 for right leg swelling. documented in this encounter Plan of Treatment Upcoming Encounters Date Type Department Care Team (Late st Contact Info) Description 09/18/2025 3:00 PM EST Office Visit [facility] ADULT DENTAL [address] [place] [address] Jayro Iza [address] [place] [address] 09/26/2025 10:30 AM EST Office Visit [facility] MEDICINE [address] [place] [address] Name, MD Cedric [address] [place] [address] documented as of this encounter Visit Diagnoses Not on filedocumented in this encounter Additional Health Concerns Assessment Noted Time PHQ-9 Depression Total Score: 0 06/27/20 25 10:35 AM EDT documented as of this encounter Care Teams Ornamental Ironworking Supervisor Relationship Specialty Start Date End Date Name, MD Cedric [address] [place] [address] PCP - General Family Medicine 04/06/16 documented as of this encounter
--- OUTSIDE RECORDS SUMMARY | 2025-09-12 10:09 | XMS_ITS | Encounter Summary ---
Author Organization [employer] Address [address] [place] [address] [address] [place] [address] Care Team Providers Care Marketing Services Specialist Name Role Phone Name, Cedric NICK Primary Care Provider [phone] Encounter Details Date Type Department Care Team (Latest Contact Info) Description 04/01/[address] [facility] CONVERSIONS Dental, Provider, DDS Social History [...] PM EST Office Visit [facility] ADULT DENTAL [address] [place] [address] Josh Dialaris [address] [place] [address] 09/26/2025 10:30 AM EST Office Visit [facility] MEDICINE [address] [place] [address] Cedric Liao MD [address] [place] [phone] documented as of this encounter Visit Diagnoses Not on filedocumented in this encounter Care Teams Marketing Services Specialist Relationship Specialty Start Date End Date Cedric Liao MD [address] [place] [address] PCP - General Family Medicine 04/06/16 documented as of this encounter
--- OUTSIDE RECORDS SUMMARY | 2025-09-12 10:09 | XMS_ITS | Encounter Summary ---
Author Organization [facility] Address [address] [facility] [address] [place] [address] Phone Care Team Providers Care Certified Mortician Name Role Phone Name, Cedric NICK Primary Care Provider [phone] Encounter Details Date Type Department Care Team (Late Contact Info) Description 02/02/2022 Telephone [facility] [address] [facility] [address] [place] [address] Jasiel Oliver, [address] [address] Social History Tobacco Use Types Packs/Day Years [...] send to Dr Liao. Thank you FAX# [phone] documented in this encounter Plan of Treatment Upcoming Encounters Date Type Department Care Team (Late Contact Info) Description 09/20/2025 Orders Only [facility] [address] [facility] [address] [place] [address] Buddy Ortiz MD [address] [facility] [address] [place] [address] Nephrolithiasis; Proteinuria, not otherwise specified; Vitamin D deficiency, not otherwise specified 09/23/2025 10:00 AM EST Office Visit [facility] [address] [id number] Buddy Ortiz MD [address] [place] [phone] documented as of this encounter Visit Diagnoses Not on filedocumented in this encounter Care Teams Certified Mortician Relationship Specialty Start Date End Date Name, MD Cedric [address] [place] [id number] PCP - General Internal Medicine 02/02/22 documented as of this encounter
--- OUTSIDE RECORDS SUMMARY | 2025-09-12 10:09 | XMS_ITS | Encounter Summary ---
Author Organization [employer] Address [address] [facility] [address] [place] [address] Care Team Providers Care Surgical Instrument Repair Specialist Name Role Phone Name, Cedric NICK Primary Care Provider [phone] Encounter Details Date Type Department Care Team [...] 09/18/2025 3:00 PM EST Office Visit [facility] ADULT DENTAL [address] [place] [address] Jayro, Iza [address] [place] [address] 09/26/2025 10:30 AM EST Office Visit [facility] MEDICINE [address] [place] [address] Name, MD Cedric [address] [place] [phone] documented as of this encounter Visit Diagnoses Not on filedocumented in this encounter Additional Health Concerns Assessment Noted Time PHQ-9 Depression Total Score: 0 06/27/20 25 10:35 AM EDT documented as of this encounter Care Teams Surgical Instrument Repair Specialist Relationship Specialty Start Date End Date NameCedric MD [address] [place] [phone] PCP - General Family Medicine 04/06/16 documented as of this encounter
--- OUTSIDE RECORDS SUMMARY | 2025-09-12 10:09 | XMS_ITS | Clinical Summary ---
Author Organization [employer] Address [address] [facility] [address] [place] [address] Care Team Providers Care Mattress Renovator Name Role Phone Name, Cedric NICK Primary Care Provider [phone] Allergies Active Allergy Reactions Criticality Noted Date [...] IN WATER AND TAKE ONCE DIRECTED BY [facility] GI DEPT 05/31/20 23 Active Acetaminophen [...] onet of right knee pain. Seen at [facility] 02/02/2025. 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); Acute pain of right knee 09/10/2025 Travel 09/09/2025 Patient Outreach [facility] [address] [place] [address] Cedric Liao MD 09/09/[address] [address] Cedric Liao MD ER Follow-up 09/05/[address] [address] Cedric Liao MD Nurse Triage 08/30/[address] [address] Cedric Liao MD Nurse Triage 08/29/2025 Orders Only GENERIC EXTERNAL DATA DEPARTMENT Provider, Generic External Data 07/19/2025 9:40 AM EDT Office Visit [facility] [address] [place] [phone] David Hebert MD Acute pain of both shoulders (Primary Dx) 07/19/2025 Travel 07/09/2025 Refill [facility] [address] [place] [phone] Cedric Liao MD 06/27/2025 10:30 AM EDT Office Visit [address] [address] Cedric Liao MD Proteinuria, unspecified type (Primary Dx); Pigmented villonodular synovitis of right knee 06/27/2025 Travel 06/26/[address] [address] Jen Muñoz MA Chart Prep from Last 3 Months Immunizations [...] Description 09/18/2025 3:00 PM EST Office Visit [facility] [address] [place] [address] Jayro, Iza [address] [place] [address] 09/26/2025 10:30 AM EST Office Visit [facility] [address] [place], [place] [phone] Name, MD Cedric [address] [place] [address] Health Maintenance Due Date Last Done Comments [...] Procedure Name Priority Date/Time Associated Diagnosis Comments NM KIDNEY FLOW/FUNCTION W PHARMACOLOGICAL INTERVENTION Routine 09/11/2025 1:49 PM EDT BASIC METABOLIC PANEL Routine 09/10/2025 3:51 PM [...] knee XR KNEE 4+ VIEWS RIGHT Routine 7:14 PM EDT LACTIC ACID Routine 08/29/2025 [...] 11:16 AM EDT CULTURE, URINE, ROUTINE Routine 08/29/20 12:00 AM EDT BASIC METABOLIC PANEL Routine 06/27/2025 10:40 AM EDT Proteinuria, unspecified type ALBUMIN, RANDOM URINE W/CREATININE Routine 06/27/2025 12:00 AM EDT Proteinuria, unspecified type BI MAMMOGRAM SCREENING TOMOSYNTHESIS BILATERAL Routine 05/28/2025 [...] Recently Relevant to Health Maintenance Results * NM Kidney Flow/Function w/ Pharmacological Intervention (09/11/2025 1:49 PM EDT) Anatomical Region Laterality Modality Body Nuclear Medicine 09/11/2025 1:49 PM EDT Narrative 09/12/2025 7:26 AM EDT [address] [address] Nuclear Medicine Report Signed Patient: Maryann Tan MR #: [id number] : 1970 Acct:[id number] Age/Sex: 55 / F ADM Date: 09/11/25 Loc: MICHAEL Attending Dr: Fatimah Claudio [facility] Ordering Physician: Fatimah Claudio Date of Service: 09/11/25 Procedure(s): NM renal flow w pharm int Accession Number(s): [id number] [facility]; Name,Cedric NICK Reason for Exam: N13.30 - Unspecified hydronephrosis EXAMINATION: NM KIDNEY IMAGING CLINICAL INFORMATION: Unspecified hydronephrosis. COMPARISON: CT abdomen and pelvis 08/29/2025 and ultrasound kidneys bilateral 04/15/2025 TECHNIQUE: Following intravenous administration of 10 mCi of 99m technetium DTPA, perfusion followed by static images over the posterior abdomen were obtained. At 30 minutes 31 mg of Lasix was administered and further imaging obtained for 30 minutes. FINDINGS: On perfusion there is symmetrical flow seen to both kidneys. On static images there is normal bilateral cortical uptake with progressive accumulation of isotope activity in the right kidney pelvis. Post Lasix there is complete emptying of the kidney pelvis with no obstruction seen on either side. On split renal function right kidney contributes 56.2% and left kidney contributes 42.8% of the total function. Time to peak cortical uptake right kidney is 2 minutes and left kidney is 15 minutes. Post Lasix, time from Lasix to half Lasix right kidney excretion is 17.8 minutes the left kidney is 17.3 minutes. There is no obstruction or hydronephrosis seen on either side. Enlarged right kidney pelvis on CT abdomen exam 08/29/2025 is likely an extrarenal kidney pelvis. No dilated ureter seen. NM/NM renal flow w pharm int IMPRESSION: Normal bilateral cortical function with the right kidney cannot representing slightly more than left kidney function. There is extrarenal right kidney pelvis with no evidence of pelvic or ureteral obstruction post-Lasix on either side. Electronically signed by: James Llanos MD 09/12/2025 07:22 AM EDT Dictated By: James Llanos MD Signed By: <Electronically signed by James Llanos MD in OV> 09/12/25 0722 DD/ 1349 TD/TT: 09/11/25 1500 Crossword Puzzle Maker: [facility] [place] Procedure Note Donotuseinterpreter, Image - 09/12/[address] [address] Nuclear Medicine Report Signed Patient: Maryann Tan AMR #: [id number] : 1970Acct:[id number] Age/Sex: 55 / FADM Date: 09/11/25 Loc: MICHAEL Attending Dr: Fatimah REIS Ordering Physician: Fatimah Claudio Date of Service: 09/11/25 Procedure(s): NM renal flow w pharm int Accession Number(s): [id number] cc: Fatimah Claudio; Name,Cedric NICK Reason for Exam: N13.30 - Unspecified hydronephrosis EXAMINATION: NM KIDNEY IMAGING CLINICAL INFORMATION: Unspecified hydronephrosis. COMPARISON: CT abdomen and pelvis 08/29/2025 and ultrasound kidneys bilateral 04/15/2025 TECHNIQUE: Following intravenous administration of 10 mCi of 99m technetium DTPA, perfusion followed by static images over the posterior abdomen were obtained. At 30 minutes 31 mg of Lasix was administered and further imaging obtained for 30 minutes. FINDINGS: On perfusion there is symmetrical flow seen to both kidneys. On static images there is normal bilateral cortical uptake with progressive accumulation of isotope activity in the right kidney pelvis. Post Lasix there is complete emptying of the kidney pelvis with no obstruction seen on either side. On split renal function right kidney contributes 56.2% and left kidney contributes 42.8% of the total function. Time to peak cortical uptake right kidney is 2 minutes and left kidney is 15 minutes. Post Lasix, time from Lasix to half Lasix right kidney excretion is 17.8 minutes the left kidney is 17.3 minutes. There is no obstruction or hydronephrosis seen on either side. Enlarged right kidney pelvis on CT abdomen exam 08/29/2025 is likely an extrarenal kidney pelvis. No dilated ureter seen. NM/NM renal flow w pharm int IMPRESSION: Normal bilateral cortical function with the right kidney cannot representing slightly more than left kidney function. There is extrarenal right kidney pelvis with no evidence of pelvic or ureteral obstruction post-Lasix on either side. Electronically signed by: James Llanos MD 09/12/2025 07:22 AM EDT Dictated By: James Llanos MD Signed By: <Electronically signed by James Llanos MD in OV> 09/12/25 0722 DD/ 1349 TD/TT: 09/11/25 1500 Crossword Puzzle Maker: MARIO [facility] External Provider IMG NM PROCEDURES Edited Result - Final * (ABNORMAL) CBC auto differential (09/10/2025 3:51 PM EDT) Only the most recent of2 resultswithin the time period is included. White Blood Count 6.4 4.8 - 10.8 X10*3/uL [facility] Red Blood Count 4.49 4.20 - 5.50 X10*6/uL [facility] Hemoglobin 12.2 12.0 - 16.0 g/dl [facility] Hematocrit 39.8 37.0 - 47.0 % [facility] Mean Corpuscular Volume 88.6 80.0 - 98.0 fL [facility] Mean Corpuscular Hemoglobin 27.2 27.0 - 33.0 pg [facility] Mean Corpuscular HGB Conc 30.7(L) 31.0 - 35.0 g/dl [facility] Red Cell Distribution Width 12.9 11.0 - 16.0 % [facility] Platelet Count 266 160 - 400 X10*3/uL [facility] Mean Platelet Volume 12.4(H) 9.4 - 12.3 fL [facility] Neutrophils Percent Auto 54.5 45 - 73 % [facility] Imm Gran Pct Auto 0.3 0.0 - 0.4 % [facility] Lymphocytes Percent Auto 35.9 20 - 40 % [facility] Monocytes Percent Auto 6.6 2 - 11 % [facility] Eosinophils Percent Auto 1.3 0 - 4 % [facility] Basophils Percent Auto 1.4 0 - 2 % [facility] NRBC Pct Auto 0.0 0.0 - 0.2 /100WBC [facility] Neutrophils Absolute Auto 3.5 2.0 - 8.3 x10*3/uL [facility] Imm Gran Abs Auto 0.02 0.00 - 0.03 X10*3/uL [facility] Lymphocytes Absolute Auto 2.3 1.2 - 4.9 X10*3/uL [facility] Monocytes Absolute Auto 0.4 0.1 - 1.2 X10*3/uL [facility] Eosinophils Absolute Auto 0.1 0.0 - 0.4 X10*3/uL [facility] Basophils Absolute Auto 0.1 0.0 - 0.2 X10*3/uL [facility] NRBC Abs Auto 0.000 0.0 - 0.012 X10*3/uL [facility] Blood Venous blood specimen / Unknown 09/10/2025 3:51 PM EDT 09/10/2025 6:00 PM EDT Grace Ramsey NP LAB BLOOD ORDERABLES Final Resul t Performing Organization Address City/[facility]/ZIP Co de Phone Number [facility] [address] [place] [phone] * (ABNORMAL) Sed Rate by Modified Venkatren (09/10/2025 3:51 PM EDT) [facility] Erythrocyte Sedimentation Rate 58(H) 0 - 20 MM/HR [facility] Comment:Patients with polycy themia and many hemoglobin abnormalitiesmay have depressed sed rates whereas patients with anemiamay have elevated sed rates. Blood Venous blood specimen / Unknown 09/10/2025 3:51 PM EDT 09/10/2025 6:00 PM EDT Grace Ramsey [employer] LAB BLOOD ORDERABLES Final Resul t Performing Organization Address City/[facility]/ZIP Co de Phone Number [facility] [address] [place] [phone] * (ABNORMAL) C-reactive Protein (09/10/2025 3:51 PM EDT) Pathologist [facility] C Reactive Protein 5.36(H) < or = 0.50 mg/dL [facility] Blood Venous blood specimen / Unknown 09/10/2025 3:51 PM EDT 09/10/2025 6:00 PM EDT Grace Ramsey [employer] LAB BLOOD ORDERABLES Final Resul t Performing Organization Address [facility] de Phone Number [facility] [address] [place] [phone] * (ABNORMAL) Basic Metabolic Panel (09/10/2025 3:51 PM EDT) Only the most recent of2 resultswithin the time period is included. [facility] Sodium 139 135 - 145 mmol/L [facility] Potassium 4.4 3.3 - 5.1 mmol/L [facility] Chloride 103 96 - 108 mmol/L [facility] Carbon Dioxide 28 22 - 29 mmol/L [facility] Anion Gap 12 12 - 20 [facility] Urea Nitrogen (BUN) 8(L) 9 - 16 mg/dL [facility] Creatinine, Serum 0.66 0.5 - 1.4 mg/dL [facility] Estimated Glomerular Filt Rate >60 [facility] Comment:Chronic Kidney Disea se: Estimated GFR < 60 mL/min/1.16f8Wmcswe Kidney Disease: Estimated GFR < 15 mL/min/1.73m2 Glucose 92 60 - 115 mg/dL [facility] Calcium 9.3 8.4 - 10.2 mg/dL [facility] Blood Venous blood specimen / Unknown 09/10/2025 3:51 PM EDT 09/10/2025 6:00 PM EDT us Grace Ramsey [employer] LAB BLOOD ORDERABLES Final Resul t Performing Organization Address [facility] Co de Phone Number [facility] [address] [place] [phone] * XR Knee 4+ Views Right (09/06/2025 7:14 PM EDT) Anatomical Region Laterality Modality Lower Extremities, Knee Right Radiogra phic Imaging 09/06/2025 7:14 PM EDT Narrative 09/06/2025 7:16 PM EDT [address] [address] XRay Report Signed Patient: Maryann Tan MR #: [id number] : 1970 Acct:[id number] Age/Sex: 55 / F ADM Date: 09/06/25 Loc: HO.ED Attending Dr: Ordering Physician: Marichuy Roa NP Date of Service: 09/06/25 Procedure(s): XR knee RT 4V Accession Number(s): [id number] cc: Name,Cedric NICK; Marichuy Roa NP Reason [...] in OV> 09/06/251914 DD/ 13 TD/TT: 09/06/251913 Crossword Puzzle Maker: Procedure Note Donotuseinterpreter, Image - 09/06/[address] [address] XRay Report Signed Patient: Maryann Tan AMR #: [id number] : 1970Acct:[id number] Age/Sex: 55 / FADM Date: 09/06/25 Loc: HO.ED Attending Dr: Ordering Physician: Marichuy Roa NP Date of Service: 09/06/25 Procedure(s): XR knee RT 4V Accession Number(s): [id number] cc: Cedric Liao MD; Marichuy Roa NP Reason for Exam: eval [...] in OV> 09/06/251914 DD/ 13 TD/TT: 09/06/251913 Crossword Puzzle Maker: [facility] External Provider IMG XR PROCEDURES Final Result * Blood Culture (First) (08/29/2025 11:54 AM EDT) Blood Venous blood specimen / Unknown 08/29/2025 11:54 AM EDT 08/29/2025 12:01 PM EDT Comment:Blood [facility] - 09/03/2025 2:02 PM EDT Blood Culture (First) No growth after 5 days. Specimen Source: Blood Buy With Fetch External Data Provider LAB MICROBIOLOGY - GENERAL ORDERABLES Final Result [facility] [address] [place] [phone] * Blood Culture (Second) (08/29/2025 11:54 AM EDT) Blood Venous blood specimen / Unknown 08/29/2025 11:54 AM EDT 08/29/2025 12:59 PM EDT Comment:Blood [facility] - 09/03/2025 2:59 PM EDT Blood Culture (Second) No growth after 5 days. Specimen Source: Blood Generic External Data Provider LAB MICROBIOLOGY - GENERAL ORDERABLES Final Result Performing Organization Address [facility] Co de Phone Number [facility] [address] [place] [phone] * Lactic Acid (08/29/2025 11:54 AM EDT) Lactic Acid 1.5 0.5 - 2.0 mmol/L [facility] 08/29/2025 11:5 4 AM EDT 08/29/2025 12:01 PM EDT Generic External Data Provider LAB BLOOD ORDERAB LES Final Result Performing Organization Address [facility] de Phone Number [facility] [address] [place] [phone] * CT Abdomen Pelvis w/o Contrast (08/29/2025 11:40 AM EDT) Anatomical Region Laterality Modality Body, Pelvis, Abdomen Computed T omography 08/29/2025 11:4 0 AM EDT Narrative 08/29/2025 12:10 PM EDT [address] [address] [address] Scan Report Signed Patient: Maryann Tan MR #: [id number] : 1970 Acct:[id number] Age/Sex: 55 / F ADM Date: 08/29/25 Loc: HO.ED Attending Dr: Ordering Physician: Galindo Stephens Date of Service: 08/29/25 Procedure(s): CT abdomen pelvis wo IV con Accession Number(s): [id number] cc: Galindo Stephens; Name,Cedric NICK Report Number: [id number]: Total DLP = 420.00 mGy-cm Reason for [...] 08/29/25 1207 DD/ 1140 TD/TT: 08/29/25 1150 Crossword Puzzle Maker: Procedure Note Donotuseinterpreter, Image - 08/29/[address] [address] [address] Scan Report Signed Patient: Maryann Tan AMR #: [id number] : 1970Acct:[id number] Age/Sex: 55 / FADM Date: 08/29/25 Loc: .ED Attending Dr: Ordering Physician: Galindo Stephens Date of Service: 08/29/25 Procedure(s): CT abdomen pelvis wo IV con Accession Number(s): [id number] cc: Galindo Stephens; Name,Cedric NICK Report Number: [id number]: Total DLP = 420.00 mGy-cm Reason for [...] 08/29/25 1207 DD/ 1140 TD/TT: 08/29/25 1150 Crossword Puzzle Maker: [facility] External Provider IMG CT PROCEDURES Edited Result - Final * HCG, Qualitative, Urine (08/29/2025 11:35 AM EDT) Urine NEGATIVE NEGATIVE [facility] Comment:This test was develo ped to detect early . Falsenegative results may occur after the 5th - 7th week ofpregnancy when using this test method. If clinicallyindicated, consider a serum hCG. 08/29/2025 11:3 5 AM EDT 08/29/2025 11:37 AM EDT us Generic External Data Provider LAB URINE ORDERAB LES Final Result Performing Organization Address City/[facility]/ZIP Co de Phone Number [facility] [address] [place] [phone] * hCG, Total, Quantitative (08/29/2025 11:19 AM EDT) HCG Quantitative 5 mIU/mL [facility] Comment:Weeks post LMP Appro ximate hCG(Last Menstrual Period) Range (mIU/ml)3 - 4 weeks 9 - 1304 - 5 weeks 75 - 2,6005 - 6 weeks 850 - 20,8006 - 7 weeks 4000 - 100,2007 - 12 weeks 11,500 - 289,80739 - 16 weeks 18,300 - 137,92610 - 29 weeks (2nd trimester) 1,400 - 53,87228 - 41 weeks (3rd trimester) 940 - [...] ORDERAB LES Final Result Performing Organization Address [facility] Co de Phone Number [facility] [address] [place] [phone] * (ABNORMAL) Comprehensive Metabolic Panel (08/29/2025 11:19 AM EDT) Sodium 138 135 - 145 mmol/L [facility] Potassium 4.0 3.3 - 5.1 mmol/L [facility] Chloride 102 96 - 108 mmol/L [facility] Carbon Dioxide 27 22 - 29 mmol/L [facility] Anion Gap 13 12 - 20 [facility] Urea Nitrogen (BUN) 11 9 - 16 mg/dL [facility] Creatinine, Serum 0.82 0.5 - 1.4 mg/dL [facility] Creatinine Clr Calc Pharmacy 63.2 [facility] Comment:Provided height and weight: 154.94 cm,60.7 kg.eGFR (calculated from the MDRD study equation) and eCrCl(calculated from the Cockcroft-Gault equation) are based ondifferent parameters and may not yield comparable results.If eCrCl result is absurd, please check patient'sheight/weight. Estimated Glomerular Filt Rate >60 [facility] Comment:Chronic Kidney Disea se: Estimated GFR < 60 mL/min/1.63f6Ngdjnf Kidney Disease: Estimated GFR < 15 mL/min/1.73m2 Glucose 98 60 - 115 mg/dL [facility] Calcium 9.8 8.4 - 10.2 mg/dL [facility] Bilirubin, Total 1.4(H) 0.0 - 1.0 mg/dL [facility] Aspartate Amino Transferase 33(H) 5 - 31 U/L [facility] Alanine Aminotransferase 57(H) 0 - 31 U/L [facility] Total Protein 7.7 6.5 - 8.0 g/dL [facility] Albumin Level 4.6 3.5 - 5.0 g/dL [facility] Alkaline Phosphatase 101 39 - 117 U/L [facility] 08/29/2025 11:1 9 AM EDT 08/29/2025 11:22 AM EDT us Generic External Data Provider LAB BLOOD ORDERAB LES Final Result [facility] [address] [place] [phone] * Influenza A B2 ID NOW ([place]) (08/29/2025 11:16 AM EDT) IDNOW SERIAL# [id number] [facility] Influenza A Negative Negative [facility] Influenza B2 Negative Negative [facility] Influenza A B2 Note See Note [facility] Comment:The [place]mons ID NOW In [...] LAB MICROBIOLOGY - GENERAL ORDERABLES Final Result [facility] [address] [place] [phone] * COVID-19 ID NOW ([place]) (08/29/2025 11:16 AM EDT) IDNOW SERIAL# [id number] [facility] COVID-19 TEST Negative Negative [facility] COVID-19 NOTE See Note [facility] Comment: Results are for the identification of SARS-CoV2 RNA. TheSARS-CoV2 RNA is generally detectable in respiratory samplesduring the acute phase of infection. Positive results areindicative of the presence of SARS-CoV-2 RNA; clinicalcorrelation with patient history and other diagnosticinformation is necessary to determine patient infectionstatus. Positive results do not rule out bacterial infectionor co- infection with other viruses.Testing facilities within the [facility] and itsterritories are required to report all [...] use by authorized laboratories.Testing performed on the [employer] NOW utilizing NAAT. 08/29/2025 11:1 6 AM EDT 08/29/2025 11:22 AM EDT us Generic External Data Provider LAB MOLECULAR ROCCO GNOSTICS ORDERABLES Final Result [facility] [address] [place] [phone] * (ABNORMAL) Urinalysis, Complete, with Reflex to Culture (08/29/2025 11:16 AM EDT) Color Urine Yellow [facility] Appearance Urine Clear [facility] PH 6.5 5.0 - 9.0 [facility] Glucose Urine UA Negative Negative mg/dL [facility] Urine Blood Trace(A) Negative [facility] Specific [place] - Urine 1.015 1.005 - 1.025 [facility] Urine Protein 300 (3+)(A) Neg-Trace mg/dL [facility] Urine Ketones Negative Negative mg/dL [facility] Nitrite Urine Negative Negative [facility] Leukocyte Esterase Urine Moderate (2+)(A) Negative [facility] RBC Urine 0-2 0 - 2 /HPF [facility] Urine WBC 21-50(A) 0 - 5 /HPF [facility] Urine Squamous Epithelial Cell 6-10 0 - 2 /HPF [facility] Urine Bacteria None Seen None Seen [facility] Hyaline Casts, Urine 0-2 0 - 2 /LPF [facility] 08/29/2025 11:1 6 AM EDT 08/29/2025 11:22 AM EDT Narrative [facility] - 08/29/2025 11:36 AM EDT [id number], Clean Catch us Generic External Data Provider LAB URINE ORDERAB LES Final Result Performing Organization Address City/[facility]/ZIP Co de Phone Number [facility] [address] [place] [phone] * Culture, Urine, Routine (08/29/2025 12:00 AM EDT) Urine Urine specimen obtained by clean catch procedure / Unknown 08/29/2025 08/29/2025 Comment:UACC Narrative [facility] - 08/30/2025 11:51 AM EDT Strep agalactiae (Grp B) Quant 10,000 to 50,000 cfu/mL Susc N/A Susceptibility not routinely performed on this isolate. Specimen Source: Urine clean catch Generic External Data Provider LAB MICROBIOLOGY - GENERAL ORDERABLES Final Result Performing Organization Address [facility] Co de Phone Number [facility] [address] [place] [phone] * (ABNORMAL) Albumin, Random Urine W/Creatinine (06/27/2025 12:00 AM EDT) Creatinine, Urine 48.89 mg/dL [facility] Microalbumin Urine 442.0 mg/L H [facility] Microalbum Creatinine Ratio Ur 904.0(H) <30 ug/mg cr [facility] Comment:Albumin/Creatinine R atio Reference Ranges: Normal: < 30 ug/mg creatinine Microalbuminuria: 30 - 300 ug/mg creatinineClinical Albuminuria: > 300 ug/mg creatinine Urine (Urine, Random) 06/27/2025 06/27/2025 us Cedric Liao MD LAB URINE ORDERABLES Final Resul t Performing Organization Address City/[facility]/ZIP Co de Phone Number [facility] [address] [place] [phone] * BI Mammogram Screening Tomosynthesis Bilateral (05/28/2025 10:12 AM EDT) Anatomical Region Laterality Modality Breast Bilateral Mammography 05/28/2025 10:1 2 AM EDT Narrative 06/10/2025 9:26 AM EDT [facility] [address] [place] [address] Mammography Report Signed Patient: Maryann Tan MR #: [id number] : 1970 Acct:[id number] Age/Sex: 55 / F ADM Date: 05/28/25 Loc: HO.MAMMO Attending Dr: Cedric Liao MD Ordering Physician: Cedric Liao MD Results: 1Negative Date of Service: 05/28/25 Follow Up: 1 Year From Orig ina Mammogram Procedure(s): MM tomosynthesis screening BI Accession Number(s): [id number] cc: Cedric Liao MD EXAMINATION: MM SCREENING [...] signed by Clau Sanchez DO in OV> 06/10/25922 DD/ 1012 TD/TT: 05/28/25 1025 Crossword Puzzle Maker: Procedure Note Donottorsteninterpreter, Image - 06/10/2025 [facility] [address] [place] [address] Mammography Report Signed Patient: Maryann Tan AMR #: [id number] : 1970Acct:[id number] Age/Sex: 55 / FADM Date: 05/28/25 Loc: HO.MAMMO Attending Dr: Cedric Liao MD Ordering Physician: Cedric Liaoults: 1Negative Date of Service: 05/28/25Follow Up: 1 Year From Orig inal Mammogram Procedure(s): MM tomosynthesis screening BI Accession Number(s): [id number] cc: Cedric Liao MD EXAMINATION: MM SCREENING [...] signed by Clau Sanchez DO in OV> 06/10/2523 DD/ 1012 TD/TT: 05/28/25 1025 Crossword Puzzle Maker: us Cedric Liao MD IMG BI PROCEDURES Final Result * Hepatitis C Antibody with Reflex to HCV, RNA, Quantitative, Real-Time PCR (10/03/2024 11:20 AM EST) Pathologist [facility] Hepatitis C Antibody Nonreactive Nonreactive [facility] Comment:Antibodies to HCV no t detected; does not exclude early acuteHCV infection. Blood Venous blood specimen / Unknown 10/03/2024 11:20 AM EST 10/03/2024 1:16 PM EST us Cedric Liao MD LAB BLOOD ORDERABLES Final Resul t Performing Organization Address [facility] Co de Phone Number [facility] [address] [place] [phone] * HIV-1/2 Antigen and Antibodies, Fourth Generation, with Reflexes (10/03/2024 11:20 AM EST) Pathologist [facility] HIV AB/AG Nonreactive Nonreactive [facility] Comment:HIV-1 p24 Ag and/or HIV-1/HIV-2 Ab not detected.A test result that is nonreactive does not exclude thepossibility of exposure to or infection with HIV-1 and/orHIV-2. Nonreactive results in this assay for individualswith prior exposure to HIV-1 and/or HIV-2 may be due toantigen and antibody levels that are below the limit ofdetection of this assay.The [employer] Rule HIV Ag/Ab Combo assay result andsupplemental assay results should be interpreted inconjunction with the patient's clinical presentation,history and other laboratory results. If the results areinconsistent with clinical evidence, additional testing issuggested to confirm the result. Blood Venous blood specimen / Unknown 10/03/2024 11:20 AM EST 10/03/2024 1:16 PM EST us Cedric Liao MD LAB BLOOD ORDERABLES Final Resul t Performing Organization Address [facility]/ZIP Co de Phone Number [facility] [address] [place] [phone] * (ABNORMAL) Colonoscopy (07/21/2023) Colonoscopy Abnormal(A ) Normal Cedric Name HEALTH MAINTENANCE Final Result * Pap Smear (12/24/2019) Pap Negative for intraephithelial lesion or malignancy Negative for intraephithelial lesion or malignancy, Other HPV Undetected 12/24/2019 Historical Provider HEALTH MAINTENANCE Final Result from Last 3 Months or Most Recently Relevant to Health Maintenance Insurance [facility] * Guarantor: Maryann Tan Account Type Relation to Patient Date of Phone Billing Address Dental Self [address] [place] [address] DENTAL - HSN PARTIAL (MEDICAID) * Guarantor: Maryann Tan Account Type Relation to Patient Date of Phone Billing Address Personal/Family Self [address] [place] [address] * Guarantor: Maryann Tan Account Type Relation to Patient Date of Phone Billing Address Personal/Family Self [address] [place] [address] [address] [place] [address] Care Teams Mattress Renovator Relationship Specialty Start Date End Date Name, MD Cedric [address] [place] [phone] PCP - General Family Medicine 04/06/16
--- OUTSIDE RECORDS SUMMARY | 2025-09-12 10:09 | XMS_ITS | Encounter Summary ---
Author Organization [employer] Address [address] [facility] 7 [place] [address] Care Team Providers Care Dimension Specification Inspector Name Role Phone Name, Cedric NIKC Primary Care Provider [phone] Encounter Details Date Type Department Care Team (Late st Contact Info) Description 04/25/[address] [facility] [address] [place] [address] Name, MD Cedric [address] [place] [address] Social History Tobacco Use Types Packs/Day Years [...] Description 09/18/2025 3:00 PM EST Office Visit [facility] ADULT DENTAL [address] [place] [address] Iza Dial [address] [place] [address] 09/26/2025 10:30 AM EST Office Visit [facility] [address] [place], [place] [phone] Name, MD Cedric [address] [place] [address] documented as of this encounter Procedures Procedure [...] EDT Recommended 5 year follow up ( [facility]) us Historical Provider HEALTH MAINTENANCE Final Result documented in this encounter Visit Diagnoses Not on filedocumented in this encounter Additional Health Concerns Assessment Noted Time PHQ-9 Depression Total Score: 0 11/19/19 23 1:50 PM EST documented as of this encounter Care Teams Dimension Specification Inspector Relationship Specialty Start Date End Date Name, [place] [address] PCP - General Family Medicine 04/06/16 documented as of this encounter
--- OUTSIDE RECORDS SUMMARY | 2025-09-12 10:09 | XMS_ITS | Clinical Summary ---
Author Organization [facility] Address [address] [place] [address] Phone Care Team Providers Care Reinforcing Steel Worker Name Role Phone Physician, No Pcp Primary [...] 11:00 AM EST Consult Orthopedic Oncology - [facility] [address] [place] [address] Jarad Quevedo MD [address] [place] [address] Health Maintenance Due Date Last [...] patient's age to complete this topic Insurance [facility] [employer] Care Teams Reinforcing Steel Worker Relationship Specialty Start Date End Date Physician, No Pcp PCP - General 06/14/25
--- OUTSIDE RECORDS SUMMARY | 2025-09-12 10:09 | XMS_ITS | Encounter Summary ---
Author Organization [employer] Address [address] [facility] 7 [place] [address] Care Team Providers Care Behavioral Consultant Name Role Phone Name, Cedric NICK Primary Care Provider [phone] Reason for Visit * Reason Onset Date Comments ER Follow-up 09/09/2025 Encounter Details Date Type Department Care Team ([facility] st Contact Info) Description 09/09/2025 Telephone [facility] [address] [place], [place] [phone] Name, MD Cedric [address] [place] [address] ER Follow-up Social History Tobacco Use Types [...] Leblanc RN - 09/09/2025 1:50 PM EDT [facility] reviewed, pt. In ED 09/06/25 for R knee swelling x 3 days with h/o pigmented villonodular synovitis. X-ray showed moderate joint effusion. Per records, pt. Saw [facility] ortho for this most recently in March but had to be referred to orthopedic oncology social worker. Pt. Is not scheduled until November. Prescribed ibuprofen. TC placed to pt. Pt. Reports pain and swelling is worse than when ED. Rates as 10 despite use ofpain medication. Pt. Reports she is able to walk but only for short distances before having to sit down. Pt. Confirms ortho oncology appointment in November in [place]. Pt. Declines evaluation today due to being [...] ED visit on : Date: 09/06/25 Hospital: [facility] Seen for: Mass in the knee Symptomatic Yes Symptom: Knee Pain - Not From Injury Outcome: Schedule an urgent appointment (within 4 hours) or talk to a nurse or provider soon Reason: Swelling Please contact pt at [phone]. (Colombian Speaker) documented in this encounter Plan of Treatment Upcoming Encounters Date Type Department Care Team (Late st Contact Info) Description 09/18/2025 3:00 PM EST Office Visit [facility] ADULT DENTAL [address] [place] [address] Jayro, Iza [address] [place] [address] 09/26/2025 10:30 AM EST Office Visit [facility] [address] [place] [address] Name, MD Cedric [address] [place] [phone] documented as of this encounter Visit Diagnoses Not on filedocumented in this encounter Additional Health Concerns Assessment Noted Time PHQ-9 Depression Total Score: 0 06/27/20 10:35 AM EDT documented as of this encounter Care Teams Behavioral Consultant Relationship Specialty Start Date End Date Name, MD Cedric [address] [place] [address] PCP - General Family Medicine 04/06/16 documented as of this encounter
--- OUTSIDE RECORDS SUMMARY | 2025-09-12 10:09 | XMS_ITS | Encounter Summary ---
Author Organization [employer] Address [address] [facility] 7 [place] [address] Care Team Providers Care Telegraph And Teletype Operator Name Role Phone Name, Cedric NICK Primary Care Provider [phone] Reason for Visit * Reason Onset Date Comments Results 09/11/2025 Encounter Details Date Type Department Care Team ([facility] st Contact Info) Description 09/11/2025 Results Follow-Up [facility] [address] [place] [address] Deya Melendez MA CBC auto differential, Sed [...] Miscellaneous Notes * Telephone Encounter - Deya Melendez MA - 09/11/2025 12:00 PM EDT T/C-Rice Dryer Mechanic called and informed Patient about previous message. * Telephone Encounter - Deya Melendez MA - 09/11/2025 11:35 AM EDT ----- Message from Grace Ramsey sent at 09/11/2025 11:30 AM EDT ----- Please let pt know no signs of infections, consistent with her dx ----- Message ----- From: Interface, Lab Results In Sent: 09/10/2025 6:27 PM EDT To: Grace Ramsey NP documented in this encounter Plan of Treatment Upcoming Encounters Date Type Department Care Team (Late st Contact Info) Description 09/18/2025 3:00 PM EST Office Visit [facility] ADULT DENTAL [address] [place] [address] Jayro, Iza [address] [place] [address] 09/26/2025 10:30 AM EST Office Visit [facility] [address] [place] [address] Name, MD Cedric [address] [place] [address] documented as of this encounter Visit Diagnoses Not on filedocumented in this encounter Additional Health Concerns Assessment Noted Time PHQ-9 Depression Total Score: 0 06/27/20 25 10:35 AM EDT documented as of this encounter Care Teams Telegraph And Teletype Operator Relationship Specialty Start Date End Date Name, MD Cedric [address] [place] [address] PCP - General Family Medicine 04/06/16 documented as of this encounter
--- OUTSIDE RECORDS SUMMARY | 2025-09-12 10:09 | XMS_ITS | Clinical Summary ---
Author Organization [facility] Address [address] [facility] [address] [place] [address] Phone Care Team Providers Care Copper Roller Handler Printing Name Role Phone Name, Cedric NICK Primary Care Provider [phone] Allergies Active Allergy Reactions Criticality Noted Date [...] each day 09/30/2021 Active Deep Sea Nasal [place] 0.65 % nasal spray 11/04/2021 Active polyethylene [...] Only [facility] [address] [phone] Buddy Ortiz MD [address] [phone] Nephrolithiasis; Proteinuria, not otherwise specified; Vitamin D deficiency, not otherwise specified 09/23/2025 10:00 AM EST Office Visit [facility] [address] [phone] Buddy Ortiz MD [address] [phone] Health Maintenance Due Date Last Done Comments Breast Cancer Screening 1970 Pneumococcal Vaccine: 50+ Ye ars (1 of 2 - PCV) 1987 Colorectal Cancer Screening: Annual FOBT 2017 Colorectal Cancer Screening: Colonoscopy 2017 Colorectal Cancer Screening: Sigmoidoscopy 2017 Hepatitis B Vaccine (3 of 3 - 19+ 3-dose series) 07/27/2023 03/29/2023, 01/24/2023 Influenza Vaccine (#1) 2025 , 09/16/2020, 08/09/2018, Additional history exists [place] [address] ([id number]) [facility] Plan ([id number]) Care Teams Copper Roller Handler Printing Relationship Specialty Start Date End Date Name, MD Cedric [address] [place] [address] PCP - General Internal Medicine 02/02/22
--- OUTSIDE RECORDS SUMMARY | 2025-09-12 10:09 | XMS_ITS | Encounter Summary ---
Author Organization [employer] Address [address] [facility] 7t [place] [address] Care Team Providers Care Inspector And Hand Packager Name Role Phone Name, Cedric NICK Primary Care Provider [phone] Reason for Visit * Reason Comments Med Refill Encounter Details Date Type Department Care Team ([facility] st Contact Info) Description 04/23/2025 Refill [facility] [address] [place] [phone] Name, MD Cedric [address] [place] [address] Social History Tobacco Use Types Packs/Day Years [...] [facility] ADULT DENTAL [address] [place] [address] Jayro, Iza [address] [place] [address] 09/26/2025 10:30 AM EST Office Visit [facility] MED[facility]INE [address] [place] [address] Name, MD Cedric [address] [place] [address] documented as of this encounter Visit Diagnoses Not on filedocumented in this encounter Additional Health Concerns Assessment Noted Time PHQ-9 Depression Total Score: 0 02/20/20 24 10:24 AM EDT documented as of this encounter Care Teams Inspector And Hand Packager Relationship Specialty Start Date End Date Name, MD Cedric [address] [place] [address] PCP - General Family Medicine 04/06/16 documented as of this encounter
== END 2025-09-12 09:26 | disposition home or self-care (01) ==
LOC: HO.HOS 09:04
PROVIDERS: PCP Internal Medicine Geriatric Medicine; Visit Provider Orthopaedic Surgery
DX: M25.561 Pain in right knee (principal)
CPT/HCPCS: 20610; 99213

== ENCOUNTER → 2025-09-12 09:03 | Outpatient (BNVA) | payer OTHER, SELFPAY | PROVIDERS: PCP Internal Medicine Geriatric Medicine; Visit Provider Orthopaedic Surgery | DX: M25.561 Pain in right knee (principal) | CPT/HCPCS: 20610; 99212; J1010; J2003 ==

== ENCOUNTER 2025-09-13 10:44 | Outpatient (AMB) | payer OTHER, SELFPAY ==
--- OUTSIDE RECORDS SUMMARY | 2025-09-10 13:30 | XMS_ITS | Encounter Summary ---
Author Organization [employer] Address [address] [facility] [address] [place] [address] Care Team Providers Care Purchasing Manager/Sales Name Role Phone Name, Cedric NICK Primary Care Provider [phone] Reason for Referral * Medications - Closed Specialty Diagnoses / Procedures Referred By Contac t Referred To Contact Diagnoses Acute pain of right knee Pigmented villonodular synovitis of right knee Grace Ramsey NP [address] [place] [address] Phone: tel: fax: Referral ID Status Reason Start Date Expiration Date Visits Re quested Visits Authorized [id number] Closed 1 1 * Consultation (STAT) - Authorized Specialty Diagnoses / Procedures Referred By Contac t Referred To Contact Orthopaedic Surgery Diagnoses Acute pain of right knee Pigmented villonodular synovitis of right knee Grace Ramsey NP [address] [place] [address] Phone: tel: fax: Referral ID Status Reason Start Date Expiration Date Visits Requested Visits Authorized [id number] Authorized Specialty Services Required 09/10/2026 1 1 Reason for Visit * Reason Comments sick onsite Encounter Details Date Type Department Care Team ([facility] st Contact Info) Description 09/10/2025 1:30 PM EDT Office Visit [facility] MEDIC[facility] [address] [place] [address] Grace Ramsey, [employer] [address] [place] [address] Pigmented villonodular synovitis of right knee (Primary [...] of this technology: Yes Visit Conducted in: Persian Translation by: Provided by [employer] Phone Service ID # [id number] [1] Patient Active Problem List Diagnosis Hypothyroidism [...] IN WATER AND TAKE ONCE DIRECTED BY [facility] GI DEPT, Disp: , Rfl: Procto-Med [...] Description 09/18/2025 3:00 PM EST Office Visit [facility] ADULT DENTAL [address] [place] [address] Jayro, Iza [address] [place] [address] 09/26/2025 10:30 AM EST Office Visit [facility] [address] [place] [address] Name, MD Cedric [address] [place] [address] Scheduled Referrals Name Type Priority Associated Diagnoses [...] EDT) Sodium 139 135 - 145 mmol/L [facility] Potassium 4.4 3.3 - 5.1 mmol/L [facility] Chloride 103 96 - 108 mmol/L [facility] Carbon Dioxide 28 22 - 29 mmol/L [facility] Anion Gap 12 12 - 20 [facility] Urea Nitrogen (BUN) 8(L) 9 - 16 mg/dL [facility] Creatinine, Serum 0.66 0.5 - 1.4 mg/dL [facility] Estimated Glomerular Filt Rate >60 [facility] Comment:Chronic Kidney Disea se: Estimated GFR < 60 mL/min/1.82z3Bioaww Kidney Disease: Estimated GFR < 15 mL/min/1.73m2 Glucose 92 60 - 115 mg/dL [facility] Calcium 9.3 8.4 - 10.2 mg/dL [facility] Blood Venous blood specimen / Unknown 09/10/2025 3:51 PM EDT 09/10/2025 6:00 PM EDT us Grace Ramsey [employer] LAB BLOOD ORDERABLES Final Resul t Performing Organization Address City/[facility]/ZIP Co de Phone Number [facility] [address] [place] [phone] * (ABNORMAL) C-reactive Protein (09/10/2025 3:51 PM EDT) C Reactive Protein 5.36(H) < or = 0.50 mg/dL [facility] Blood Venous blood specimen / Unknown 09/10/2025 3:51 PM EDT 09/10/2025 6:00 PM EDT us Grace Ramsey [employer] LAB BLOOD ORDERABLES Final Resul t Performing Organization Address [facility]/ZIP Co de Phone Number [facility] [address] [place] [phone] * (ABNORMAL) Sed Rate by Modified Westergren (09/10/2025 3:51 PM EDT) Pathologist [facility] Erythrocyte Sedimentation Rate 58(H) 0 - 20 MM/HR [facility] Comment:Patients with polycy themia and many hemoglobin abnormalitiesmay have depressed sed rates whereas patients with anemiamay have elevated sed rates. Blood Venous blood specimen / Unknown 09/10/2025 3:51 PM EDT 09/10/2025 6:00 PM EDT us Grace Ramsey [employer] LAB BLOOD ORDERABLES Final Resul t [facility] [address] [place] [address] [phone] * (ABNORMAL) CBC auto differential (09/10/2025 3:51 PM EDT) [facility] White Blood Count 6.4 4.8 - 10.8 X10*3/uL [facility] Red Blood Count 4.49 4.20 - 5.50 X10*6/uL [facility] Hemoglobin 12.2 12.0 - 16.0 g/dl [facility] Hematocrit 39.8 37.0 - 47.0 % [facility] Mean Corpuscular Volume 88.6 80.0 - 98.0 fL [facility] Mean Corpuscular Hemoglobin 27.2 27.0 - 33.0 pg [facility] Mean Corpuscular HGB Conc 30.7(L) 31.0 - 35.0 g/dl [facility] Red Cell Distribution Width 12.9 11.0 - 16.0 % [facility] Platelet Count 266 160 - 400 X10*3/uL [facility] Mean Platelet Volume 12.4(H) 9.4 - 12.3 fL [facility] Neutrophils Percent Auto 54.5 45 - 73 % [facility] Imm Gran Pct Auto 0.3 0.0 - 0.4 % [facility] Lymphocytes Percent Auto 35.9 20 - 40 % [facility] Monocytes Percent Auto 6.6 2 - 11 % [facility] Eosinophils Percent Auto 1.3 0 - 4 % [facility] Basophils Percent Auto 1.4 0 - 2 % [facility] NRBC Pct Auto 0.0 0.0 - 0.2 /100WBC [facility] Neutrophils Absolute Auto 3.5 2.0 - 8.3 x10*3/uL [facility] Imm Gran Abs Auto 0.02 0.00 - 0.03 X10*3/uL [facility] Lymphocytes Absolute Auto 2.3 1.2 - 4.9 X10*3/uL [facility] Monocytes Absolute Auto 0.4 0.1 - 1.2 X10*3/uL [facility] Eosinophils Absolute Auto 0.1 0.0 - 0.4 X10*3/uL [facility] Basophils Absolute Auto 0.1 0.0 - 0.2 X10*3/uL [facility] NRBC Abs Auto 0.000 0.0 - 0.012 X10*3/uL [facility] Blood Venous blood specimen / Unknown 09/10/2025 3:51 PM EDT 09/10/2025 6:00 PM EDT us Grace Ramsey [employer] LAB BLOOD ORDERABLES Final Resul t [facility] [address] [place] [phone] documented in this encounter Visit Diagnoses Diagnosis Pigmented villonodular synovitis of right knee- Primary Acute pain of right knee documented in this encounter Additional Health Concerns Assessment Noted Time PHQ-9 Depression Total Score: 0 06/27/20 25 10:35 AM EDT documented as of this encounter Care Teams Purchasing Manager/Sales Relationship Specialty Start Date End Date Name, MD Cedric [address] [place] [address] PCP - General Family Medicine 04/06/16 documented as of this encounter
[2025-09-13 10:57] VITALS: BP 152/84; PULSE 84; O2SAT 97; BMI 23.2
--- NOTE | 2025-09-13 10:57 | A.OFFVIS_ITS ---
Vital Signs 09/13/25 10:57 Height 5 ft 4 in Weight 135 lb BMI 23.2 BP 152/84 H Blood Pressure Location Rt brachial Position Sitting Pulse 84 Pulse Source Pulse Oximeter Pulse Oximetry (%) 97 Oxygen Delivery Method Room Air Intake Visit Reasons: 6m reflux fecal abnormality Intake Note: ESTABLISHED PATIENT for GERD + CIC mgmt. Chief Complaint; C.O. constipation persistence despite her current therapies. Also complains of excess gas + LUQ pain. Pt requests refill of colace at this time. Stroke Belt Sander Operator Required: Yes Stroke Belt Sander Operator Services: Stroke Belt Sander Operator Present Stroke Belt Sander Operator Name: Neftali [id number] Information Interpreted: clinical only Accompanied by: Self / Same As Patient Allergies ceftriaxone Allergy (Severe, Verified 10/07/25 14:06) Anaphylaxis Iodinated Contrast Media (IV Contrast Dye) Allergy (Severe, Verified 10/07/25 14:06) Anaphylaxis magnesium hydroxide (From Milk of Magnesia) Allergy (Intermediate, Verified 10/07/25 14:06) Rash HPI HPI 6m reflux fecal abnormality: Details: LAST VISIT: Ileostomy in place Status post colostomy, follow-up exam Colovesical fistula Irritable bowel syndrome with constipation Diverticulosis Plan Patient will continue followups with her surgeon. Upper endoscopy and colonoscopy were discussed with patient. No Barretts found. Patient can continue lower dose Nexium. Script for 20 mg daily given to patient. Continue with her diet and encouraged patient to drink plenty fluids. Patient will call our office when she will decide when she will have her surgery. Patient will reach out sooner if she will have any GI concerning symptoms. She is agreeable to this plan and verbalizes understanding of instructions. She was given the opportunity to ask questions and all questions answered. ? Thank you for allowing me to participate in her care New esomeprazole magnesium (Nexium 24HR) 20 mg PO DAILY 30 tabs 4RF TODAY'S VISIT: Patient is here today for follow-up. Patient reports she continues to be constipated. Currently is taking Dulcolax and Colace. Patient ran out of Colace in the past few weeks. Seen in the ER for left lower abdominal pain. Diagnosed with diverticulitis and patient was placed on metronidazole and Cipro. Patient was on clear liquid for several days while she was taking the antibiotics. Currently patient states that she continues to have trouble moving her bowels. Sigmoid colon resection [place] [address] Araya. Patient denies melena, hematochezia, unintentional weight loss or ribbon like stools. Patient denies any mucus in her stools. Denies dyspepsia, dysphagia or odynophagia. [facility] Medical History (Updated 10/11/25 @ 17:44 [facility] Pruritus ani Hemorrhoids with complication Endometrial hyperplasia Heartburn GERD (gastroesophageal reflux disease) Skin lesion of back Kidney stone Vitamin D deficiency Hypothyroidism Surgical History (Updated 10/11/25 @ 17:44 by DIMPLE SantizoSIDDHARTHA) Hx of ventral hernia repair (05/31/24) Hx of unilateral oophorectomy History of surgery Tubal ligation status Hx of colonoscopy Hx of esophagogastroduodenoscopy Family History Father Hypertension Respiratory failure Mother Pancreatic cancer Social History Household Members: Spouse Housing: Apartment Are you a primary medicare sales representative to a significant other at home: No Do you presently have visiting nurse or other home services: No Alcohol intake: never Patient Tobacco Use Status: Never used Tobacco Second Hand Smoke Exposure: No service: No Current occupational status: employed Current occupation: [employer] Sexual orientation: Straight/Heterosexual Gender identity: Female Female Reproductive History Menstrual Age of Menarche: 16 Review of Systems Const Denies weight gain and Denies weight loss ENT Reports no additional complaints, Denies dysphagia and Denies odynophagia Card Reports no additional complaints Resp Reports no additional complaints GI Reports abdominal pain (cramping), Denies belching, Denies melena, Denies blo ating, Denies change in bowel habits, Reports constipation, Denies dysphagia, Denies excessive flatus, Denies dyspepsia, Denies heartburn, Denies diarrhea, Denies loose stools, Denies nausea, Denies odynophagia and Denies vomiting Reports no additional complaints Musc Reports no additional complaints Neuro Reports no additional complaints Psych Reports no additional complaints Endo Reports no additional complaints Physical Exam Vital Signs: Last Vital Signs Pulse 84 09/13/25 10:57 BP 152/84 H 09/13/25 10:57 Pulse Ox 97 09/13/25 10:57 Oxygen Delivery Method Room Air 09/13/25 10:57 BMI result Body Mass Index 23.2 Const General: healthy appearing, no acute distress and well developed Nutritional Appearance: well nourished Orientation/consciousness: patient oriented x3 Resp Effort & Inspection: normal respiratory effort, able to speak in complete sentences, no tracheal deviation and symmetric chest movement Auscultation: clear to auscultation bilaterally Cardio Rate: regular rate GI Other: old scars Inspection: No distended Palpation (GI): Soft to palpation, not firm, nontender, no guarding and No hepatosplenomegaly present Auscultation: normal bowel sounds General: Yes no CVA tenderness Back/Spine/Pelvis Back: no CVA tenderness Skin General skin exam: elasticity normal, turgor normal and dry skin Neuro General: patient oriented x3 Psych Appearance: grossly normal Mental Status: mental status grossly normal Assessment & Plan Assessment & Plan (1) Dyspepsia: Code(s): R10.13 - Epigastric pain Category: Surgical (2) H/O resection of large bowel: Code(s): Z90.49 - Acquired absence of other specified parts of digestive tract Category: Surgical (3) Chronic idiopathic constipation: Code(s): K59.04 - Chronic idiopathic constipation Category: Medical (4) Diverticulitis: Code(s): K57.92 - Diverticulitis of intestine, part unspecified, without perforation or abscess without bleeding Category: Medical (5) Ventral hernia: Code(s): K43.9 - Ventral hernia without obstruction or gangrene Category: Surgical Qualifiers: Obstruction and gangrene presence: without obstruction or gangrene Qualified Code(s): K43.9 - Ventral hernia without obstruction or gangrene (6) GERD (gastroesophageal reflux disease): Code(s): K21.9 - Gastro-esophageal reflux disease without esophagitis Category: Medical Qualifiers: Esophagitis presence: esophagitis presence not specified Qualified Code(s): K21.9 - Gastro-esophageal reflux disease without esophagitis Plan Patient is here today for follow-up. Patient reports that she is still having constipation despite taking Dulcolax and stool softeners. Patient reports abdominal bloating and left lower quadrant pain. Long discussion with patient about making sure that she is moving her bowels better. Increasing fiber in her diet. We will start her on Linzess. Increase fluid intake and activity to promote bowel motility. Patient was also encouraged to take MiraLax if unable to have a bowel movement. She is to call our office if Linzess will not be effective. I will see patient in 2 months, sooner on as needed basis. She is agreeable to this plan and verbalizes understanding of the instructions. She was given the opportunity to ask questions and all questions answered Thank you for allowing me to participate in her care Medications: New linaclotide (Linzess) 145 mcg PO DAILY 30 caps 2RF Refilled docusate sodium 200 mg (2 x 100 mg) PO BEDTIME 180 caps 3RF K59.00 - Constipation, unspecified Discontinued bisacodyl Discontinued Reason: Doctor's Order 10 mg (2 x 5 mg) PO DAILY 180 tabs 3RF Coding Level of Care Code Est Pt Level 4 (89401) Complex visit Add On G2211 Diagnoses Dyspepsia R10.13 H/O resection of large bowel Z90.49 Chronic idiopathic constipation K59.04 Diverticulitis K57.92 Ventral hernia without obstruction or gangrene K43.9 Obstruction and gangrene presence: without obstruction or gangrene Gastroesophageal reflux disease, unspecified whether esophagitis present K21.9 Esophagitis presence: esophagitis presence not specified Time Spent (min) 35 Comment 25 minutes spent with patient and additional 10 minutes spent reviewing her records
--- OUTSIDE RECORDS SUMMARY | 2025-09-13 12:15 | XMS_ITS | Encounter Summary ---
Author Organization [employer] Address [address] [place] [address] 7 [place] [address] Care Team Providers Care Security Operations Center Operator Name Role Phone Name, Cedric NICK Primary Care Provider [phone] Encounter Details Date Type Department Care Team (Latest Contact Info) Description 04/01/2022 Abstract [facility] Dental, Provider, DDS Social History [...] Description 09/18/2025 3:00 PM EST Office Visit [facility] ADULT DENTAL [address] [place] [address] Josh Dialaris [address] [place] [address] 09/26/2025 10:30 AM EST Office Visit [facility] MEDICINE [address] [place] [address] Cedric Liao MD [address] [place] [address] documented as of this encounter Visit Diagnoses Not on filedocumented in this encounter Care Teams Security Operations Center Operator Relationship Specialty Start Date End Date Cedric Liao MD [address] [place] [address] PCP - General Family Medicine 04/06/16 documented as of this encounter
--- OUTSIDE RECORDS SUMMARY | 2025-09-13 12:15 | XMS_ITS | Encounter Summary ---
Author Organization [employer] Address [address] [facility] [address] [place] [address] Care Team Providers Care Life Tester [employer] Name Role Phone Name, Cedric NICK Primary Care Provider Encounter Details Date Type Department Care Team ([facility] Contact Info) Description 09/23/2023 Orders Only [facility] MEDICINE [address] [place], [place] [phone] Name, MD Cedric [address] [place] [address] Social History Tobacco Use Types Packs/Day Years [...] Description 09/18/2025 3:00 PM EST Office Visit [facility] ADULT DENTAL [address] [place] [address] Jayro, Iza [address] [place] [address] 09/26/2025 10:30 AM EST Office Visit [facility] MEDICINE [address] [place] [address] Name, MD Cedric [address] [place] [address] documented as of this encounter Visit Diagnoses Not on filedocumented in this encounter Additional Health Concerns Assessment Noted Time PHQ-9 Depression Total Score: 0 11/19/19 23 1:50 PM EST documented as of this encounter Care Teams Life Tester [employer] Relationship Specialty Start Date End Date Name, MD Cedric [address] [place] [phone] PCP - General Family Medicine 04/06/16 documented as of this encounter
--- OUTSIDE RECORDS SUMMARY | 2025-09-13 12:15 | XMS_ITS | Encounter Summary ---
Author Organization [employer] Address [address] [facility] 7[address] [place] [address] Care Team Providers Care Labor Economics Teacher Name Role Phone Name, Cedric NICK Primary Care Provider [phone] Reason for Visit * Reason Comments Med Refill Encounter Details Date Type Department Care Team ([facility] st Contact Info) Description 04/23/2025 Refill [facility] MEDICINE [address] [place] [phone] Name, MD Cedric [address] [place] [address] Social History Tobacco Use Types Packs/Day Years [...] Description 09/18/2025 3:00 PM EST Office Visit [facility] ADULT DENTAL [address] [place] [address] Jayro, Iza [address] [place] [address] 09/26/2025 10:30 AM EST Office Visit [facility] MEDICINE [address] [place] [address] Name, MD Cedric [address] [place] [phone] documented as of this encounter Visit Diagnoses Not on filedocumented in this encounter Additional Health Concerns Assessment Noted Time PHQ-9 Depression Total Score: 0 02/20/20 24 10:24 AM EDT documented as of this encounter Care Teams Labor Economics Teacher Relationship Specialty Start Date End Date Name, MD Cedric [address] [place] [id number] PCP - General Family Medicine 04/06/16 documented as of this encounter
--- OUTSIDE RECORDS SUMMARY | 2025-09-13 12:15 | XMS_ITS | Clinical Summary ---
Author Organization [facility] Address [address] [facility] [address] [place] [address] Phone Care Team Providers Care Real Estate Agent Name Role Phone Name, Cedric NICK Primary Care Provider [phone] Allergies Active Allergy Reactions Criticality Noted Date [...] each day 09/30/2021 Active Deep Sea Nasal [place] 0.65 % nasal spray 11/04/2021 Active polyethylene [...] Upcoming Encounters Date Type Department Care Team ([facility] st Contact Info) Description 09/20/2025 Orders Only [facility] [address] [phone] Buddy Ortiz MD [address] [phone] Nephrolithiasis; Proteinuria, not otherwise specified; Vitamin D deficiency, not otherwise specified 09/23/2025 10:00 AM EST Office Visit [facility] [address] [phone] Buddy Ortiz MD [address] [phone] Health Maintenance Due Date Last Done Comments Breast Cancer Screening 1968 Pneumococcal Vaccine: 50+ Ye ars (1 of 2 - PCV) 1987 Colorectal Cancer Screening: Annual FOBT 2017 Colorectal Cancer Screening: Colonoscopy 2017 Colorectal Cancer Screening: Sigmoidoscopy 2017 Hepatitis B Vaccine (3 of 3 - 19+ 3-dose series) 07/27/2023 03/29/2023, 01/24/2023 Influenza Vaccine (#1) 2025 , 09/16/2020, 08/09/2018, Additional history exists [place] [address] ([id number]) [facility] Plan ([id number]) Care Teams Real Estate Agent Relationship Specialty Start Date End Date Name, MD Cedric [address] [place] [phone] PCP - General Internal Medicine 02/02/22
--- OUTSIDE RECORDS SUMMARY | 2025-09-13 12:15 | XMS_ITS | Encounter Summary ---
Author Organization [employer] Address [address] [facility] 7 [place] [address] Care Team Providers Care Quartz Miner Name Role Phone Name, Cedric NICK Primary Care Provider [phone] Reason for Visit * Reason Onset Date Comments ER Follow-up 09/09/2025 Encounter Details Date Type Department Care Team ([facility] st Contact Info) Description 09/09/[address] [facility] MEDICINE [address] [place], [place] [phone] Name, MD Cedric [address] [place] [address] ER Follow-up Social History Tobacco Use Types [...] Leblanc RN - 09/09/2025 1:50 PM EDT [facility] reviewed, pt. In ED 09/06/25 for R knee swelling x 3 days with h/o pigmented villonodular synovitis. X-ray showed moderate joint effusion. Per records, pt. Saw [facility] orth[facility] for this most recently in March but had to be referred to orthopedic cyber forensic specialist. Pt. Is not scheduled until November. Prescribed ibuprofen. TC placed to pt. Pt. Reports pain and swelling is worse than when ED. Rates as 10 despite use ofpain medication. Pt. Reports she is able to walk but only for short distances before having to sit down. Pt. Confirms ortho oncology appointment in November in [place]. Pt. Declines evaluation today due to being [...] ED visit on : Date: 09/06/25 Hospital: [facility] Seen for: Mass in the knee Symptomatic Yes Symptom: Knee Pain - Not From Injury Outcome: Schedule an urgent appointment (within 4 hours) or talk to a nurse or provider soon Reason: Swelling Please contact pt at [phone]. (Central African Speaker) documented in this encounter Plan of Treatment Upcoming Encounters Date Type Department Care Team (Late st Contact Info) Description 09/18/2025 3:00 PM EST Office Visit [facility] ADULT DENTAL [address] [place] [address] Jayro, Iza [address] [place] [address] 09/26/2025 10:30 AM EST Office Visit [facility] MEDICINE [address] [place] [address] Name, MD Cedric [address] [place] [phone] documented as of this encounter Visit Diagnoses Not on filedocumented in this encounter Additional Health Concerns Assessment Noted Time PHQ-9 Depression Total Score: 0 06/27/20 10:35 AM EDT documented as of this encounter Care Teams Quartz Miner Relationship Specialty Start Date End Date Name, MD Cedric [address] [place] [phone] PCP - General Family Medicine 04/06/16 documented as of this encounter
--- OUTSIDE RECORDS SUMMARY | 2025-09-13 12:15 | XMS_ITS | Clinical Summary ---
Author Organization [employer] Address [address] [facility] [address] [place] [address] Care Team Providers Care I&C Technician Name Role Phone Name, Cedric NICK Primary Care Provider [phone] Allergies Active Allergy Reactions Criticality Noted Date [...] IN WATER AND TAKE ONCE DIRECTED BY [facility] 05/31/20 23 Active Acetaminophen [...] Department Care Team Description 09/11/2025 Results Follow-Up [facility] [address] [place] [address] Deya Melendez MA CBC auto differential, Sed Rate by Modified Westergren, C-reactive Protein, Basic Metabolic Panel 09/10/2025 1:30 PM EDT Office Visit [facility] [address] [place] [address] Grace Ramsey, ALLIE 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); Acute pain of right knee 09/10/2025 Travel 09/09/2025 Patient Outreach [facility] [address] [place] [address] Cedric Liao MD 09/09/[address] [address] Cedric Liao MD ER Follow-up 09/05/[address] [address] Cedric Liao MD Nurse Triage 08/30/[address] [address] Cedric Liao MD Nurse Triage 08/29/2025 Orders Only GENERIC EXTERNAL DATA DEPARTMENT Provider, Generic External Data 07/19/2025 9:40 AM EDT Office Visit [facility] [address] [place] [phone] David Hebert MD Acute pain of both shoulders (Primary Dx) 07/19/2025 Travel 07/09/2025 Refill [facility] [address] [place] [address] Cedric Liao MD 06/27/2025 10:30 AM EDT Office Visit [address] [address] Cedric Liao MD Proteinuria, unspecified type (Primary Dx); Pigmented villonodular synovitis of right knee 06/27/2025 Travel 06/26/[address] [address] Jen Muñoz MA Chart Prep from Last [...] Description 09/18/2025 3:00 PM EST Office Visit [facility] [address] [place] [address] Jayro, Iza [address] [place] [address] 09/26/2025 10:30 AM EST Office Visit [facility] [address], [place] [phone] Name, MD Cedric [address] [place] [address] Health Maintenance Due Date Last Done Comments [...] PM EDT Narrative 09/12/2025 7:26 AM EDT [address] [address] Nuclear Medicine Report Signed Patient: Maryann Tan MR #: [id number] : 1970 Acct:[id number] Age/Sex: 55 / F ADM Date: 09/11/25 Loc: MICHAEL Attending Dr: Fatimah Claudio [facility] Ordering Physician: Fatimah Claudio Date of Service: 09/11/25 Procedure(s): NM renal flow w pharm int Accession Number(s): [id number] [facility]; Name,Cedric NICK Reason for Exam: N13.30 - [...] 09/12/25 0722 DD/ 1349 TD/TT: 09/11/25 1500 Senior Packaging Engineer: [facility] Procedure Note Donotuseinterpreter, Image - 09/12/[address] [address] Nuclear Medicine Report Signed Patient: Maryann Tan AMR #: [id number] : 1970Acct:[id number] Age/Sex: 55 / FADM Date: 09/11/25 Loc: MICHAEL Attending Dr: Fatimah REIS Ordering Physician: Fatimah Claudio Date of Service: 09/11/25 Procedure(s): NM renal flow w pharm int Accession Number(s): [id number] cc: Fatimah Claudio; Name,Cedric NICK Reason for [...] 09/12/25 0722 DD/ 1349 TD/TT: 09/11/25 1500 Senior Packaging Engineer: MARIO [facility] External Provider IMG NM PROCEDURES Edited Result - Final * (ABNORMAL) CBC auto differential (09/10/2025 3:51 PM EDT) Only the most recent of2 resultswithin the time period is included. White Blood Count 6.4 4.8 - 10.8 X10*3/uL [facility] Red Blood Count 4.49 4.20 - 5.50 X10*6/uL [facility] Hemoglobin 12.2 12.0 - 16.0 g/dl [facility] Hematocrit 39.8 37.0 - 47.0 % [facility] Mean Corpuscular Volume 88.6 80.0 - 98.0 fL [facility] Mean Corpuscular Hemoglobin 27.2 27.0 - 33.0 pg [facility] Mean Corpuscular HGB Conc 30.7(L) 31.0 - 35.0 g/dl [facility] Red Cell Distribution Width 12.9 11.0 - 16.0 % [facility] Platelet Count 266 160 - 400 X10*3/uL [facility] Mean Platelet Volume 12.4(H) 9.4 - 12.3 fL [facility] Neutrophils Percent Auto 54.5 45 - 73 % [facility] Imm Gran Pct Auto 0.3 0.0 - 0.4 % [facility] Lymphocytes Percent Auto 35.9 20 - 40 % [facility] Monocytes Percent Auto 6.6 2 - 11 % [facility] Eosinophils Percent Auto 1.3 0 - 4 % [facility] Basophils Percent Auto 1.4 0 - 2 % [facility] NRBC Pct Auto 0.0 0.0 - 0.2 /100WBC [facility] Neutrophils Absolute Auto 3.5 2.0 - 8.3 x10*3/uL [facility] Imm Gran Abs Auto 0.02 0.00 - 0.03 X10*3/uL [facility] Lymphocytes Absolute Auto 2.3 1.2 - 4.9 X10*3/uL [facility] Monocytes Absolute Auto 0.4 0.1 - 1.2 X10*3/uL [facility] Eosinophils Absolute Auto 0.1 0.0 - 0.4 X10*3/uL [facility] Basophils Absolute Auto 0.1 0.0 - 0.2 X10*3/uL [facility] NRBC Abs Auto 0.000 0.0 - 0.012 X10*3/uL [facility] Blood Venous blood specimen / Unknown 09/10/2025 3:51 PM EDT 09/10/2025 6:00 PM EDT Grace Ramsey NP LAB BLOOD ORDERABLES Final Resul t Performing Organization Address City/[facility]/ZIP Co de Phone Number [facility] [address] [place] [phone] * (ABNORMAL) Sed Rate by Modified Venkatren (09/10/2025 3:51 PM EDT) [facility] Erythrocyte Sedimentation Rate 58(H) 0 - 20 MM/HR [facility] Comment:Patients with polycy themia and many hemoglobin abnormalitiesmay have depressed sed rates whereas patients with anemiamay have elevated sed rates. Blood Venous blood specimen / Unknown 09/10/2025 3:51 PM EDT 09/10/2025 6:00 PM EDT Grace Ramsey WATCH CRYSTAL MOLDER LAB BLOOD ORDERABLES Final Resul t Performing Organization Address City/[facility]/ZIP Co de Phone Number [facility] [address] [place] [address] [phone] * (ABNORMAL) C-reactive Protein (09/10/2025 3:51 PM EDT) Pathologist [facility] C Reactive Protein 5.36(H) < or = 0.50 mg/dL [facility] Blood Venous blood specimen / Unknown 09/10/2025 3:51 PM EDT 09/10/2025 6:00 PM EDT Grace Ramsey WATCH CRYSTAL MOLDER LAB BLOOD ORDERABLES Final Resul t Performing Organization Address [facility] de Phone Number [facility] [address] [place] [phone] * (ABNORMAL) Basic Metabolic Panel (09/10/2025 3:51 PM EDT) Only the most recent of2 resultswithin the time period is included. [facility] Sodium 139 135 - 145 mmol/L [facility] Potassium 4.4 3.3 - 5.1 mmol/L [facility] Chloride 103 96 - 108 mmol/L [facility] Carbon Dioxide 28 22 - 29 mmol/L [facility] Anion Gap 12 12 - 20 [facility] Urea Nitrogen (BUN) 8(L) 9 - 16 mg/dL [facility] Creatinine, Serum 0.66 0.5 - 1.4 mg/dL [facility] Estimated Glomerular Filt Rate >60 [facility] Comment:Chronic Kidney Disea se: Estimated GFR < 60 mL/min/1.65x7Yzxobt Kidney Disease: Estimated GFR < 15 mL/min/1.73m2 Glucose 92 60 - 115 mg/dL [facility] Calcium 9.3 8.4 - 10.2 mg/dL [facility] Blood Venous blood specimen / Unknown 09/10/2025 3:51 PM EDT 09/10/2025 6:00 PM EDT us Grace Ramsey WATCH CRYSTAL MOLDER LAB BLOOD ORDERABLES Final Resul t Performing Organization Address [facility] Co de Phone Number [facility] [address] [place] [phone] * XR Knee 4+ Views Right (09/06/2025 7:14 PM EDT) Anatomical Region Laterality Modality Lower Extremities, Knee Right Radiogra phic Imaging 09/06/2025 7:14 PM EDT Narrative 09/06/2025 7:16 PM EDT [address] [address] XRay Report Signed Patient: Maryann Tan MR #: [id number] : 1970 Acct:[id number] Age/Sex: 55 / F ADM Date: 09/06/25 Loc: HO.ED Attending Dr: Ordering Physician: Marichuy Roa NP Date of Service: 09/06/25 Procedure(s): XR knee RT 4V Accession Number(s): [id number] cc: Name,Cedric NICK; Marichuy Roa NP Reason [...] in OV> 09/06/251914 DD/ 13 TD/TT: 09/06/251913 Senior Packaging Engineer: Procedure Note Donotuseinterpreter, Image - 09/06/[address] [address] XRay Report Signed Patient: Maryann Tan AMR #: [id number] : 1970Acct:[id number] Age/Sex: 55 / FADM Date: 09/06/25 Loc: HO.ED Attending Dr: Ordering Physician: Marichuy Roa NP Date of Service: 09/06/25 Procedure(s): XR knee RT 4V Accession Number(s): [id number] cc: Cedric Liao MD; Marichuy Roa NP [...] in OV> 09/06/251914 DD/ 13 TD/TT: 09/06/251913 Senior Packaging Engineer: [facility] External Provider IMG XR PROCEDURES Final Result * Blood Culture (First) (08/29/2025 11:54 AM EDT) Blood Venous blood specimen / Unknown 08/29/2025 11:54 AM EDT 08/29/2025 12:01 PM EDT Comment:Blood [facility] - 09/03/2025 2:02 PM EDT Blood Culture (First) No growth after 5 days. Specimen Source: Blood [employer] External Data Provider LAB MICROBIOLOGY - GENERAL ORDERABLES Final Result [facility] [address] [place] [phone] * Blood Culture (Second) (08/29/2025 11:54 AM EDT) Blood Venous blood specimen / Unknown 08/29/2025 11:54 AM EDT 08/29/2025 12:59 PM EDT Comment:Blood [facility] - 09/03/2025 2:59 PM EDT Blood Culture (Second) No growth after 5 days. Specimen Source: Blood Generic External Data Provider LAB MICROBIOLOGY - GENERAL ORDERABLES Final Result Performing Organization Address [facility] Co de Phone Number [facility] [address] [place] [phone] * Lactic Acid (08/29/2025 11:54 AM EDT) Lactic Acid 1.5 0.5 - 2.0 mmol/L [facility] 08/29/2025 11:5 4 AM EDT 08/29/2025 12:01 PM EDT Generic External Data Provider LAB BLOOD ORDERAB LES Final Result Performing Organization Address [facility] de Phone Number [facility] [address] [place] [phone] * CT Abdomen Pelvis w/o Contrast (08/29/2025 11:40 AM EDT) Anatomical Region Laterality Modality Body, Pelvis, Abdomen Computed T omography 08/29/2025 11:4 0 AM EDT Narrative 08/29/2025 12:10 PM EDT [address] [address] [address] Scan Report Signed Patient: Maryann Tan MR #: [id number] : 1970 Acct:[id number] Age/Sex: 55 / F ADM Date: 08/29/25 Loc: HO.ED Attending Dr: Ordering Physician: Galindo Stehpens Date of Service: 08/29/25 Procedure(s): CT abdomen pelvis wo IV con Accession Number(s): [id number] cc: Galindo Stephens; Name,Cedric NICK Report Number: [id number]: Total DLP = 420.00 mGy-cm Reason for [...] 08/29/25 1207 DD/ 1140 TD/TT: 08/29/25 1150 Senior Packaging Engineer: Procedure Note Donotuseinterpreter, Image - 08/29/[address] [address] [address] Scan Report Signed Patient: Maryann Tan AMR #: [id number] : 1970Acct:[id number] Age/Sex: 55 / FADM Date: 08/29/25 Loc: .ED Attending Dr: Ordering Physician: Galindo Stephens Date of Service: 08/29/25 Procedure(s): CT abdomen pelvis wo IV con Accession Number(s): [id number] cc: Galindo Stephens; Name,Cedric NICK Report Number: [id number]: Total DLP = 420.00 mGy-cm Reason for [...] 08/29/25 1207 DD/ 1140 TD/TT: 08/29/25 1150 Senior Packaging Engineer: [facility] External Provider IMG CT PROCEDURES Edited Result - Final * HCG, Qualitative, Urine (08/29/2025 11:35 AM EDT) Urine NEGATIVE NEGATIVE [facility] Comment:This test was develo ped to detect early . Falsenegative results may occur after the 5th - 7th week ofpregnancy when using this test method. If clinicallyindicated, consider a serum hCG. 08/29/2025 11:3 5 AM EDT 08/29/2025 11:37 AM EDT us Generic External Data Provider LAB URINE ORDERAB LES Final Result Performing Organization Address City/[facility]/ZIP Co de Phone Number [facility] [address] [place] [phone] * hCG, Total, Quantitative (08/29/2025 11:19 AM EDT) HCG Quantitative 5 mIU/mL [facility] Comment:Weeks post LMP Appro ximate hCG(Last Menstrual Period) Range (mIU/ml)3 - 4 weeks 9 - 1304 - 5 weeks 75 - 2,6005 - 6 weeks 850 - 20,8006 - 7 weeks 4000 - 100,2007 - 12 weeks 11,500 - 289,60430 - 16 weeks 18,300 - 137,62379 - 29 weeks (2nd trimester) 1,400 - 53,67297 - 41 weeks (3rd trimester) 940 - [...] ORDERAB LES Final Result Performing Organization Address [facility] Co de Phone Number [facility] [address] [place] [phone] * (ABNORMAL) Comprehensive Metabolic Panel (08/29/2025 11:19 AM EDT) Sodium 138 135 - 145 mmol/L [facility] Potassium 4.0 3.3 - 5.1 mmol/L [facility] Chloride 102 96 - 108 mmol/L [facility] Carbon Dioxide 27 22 - 29 mmol/L [facility] Anion Gap 13 12 - 20 [facility] Urea Nitrogen (BUN) 11 9 - 16 mg/dL [facility] Creatinine, Serum 0.82 0.5 - 1.4 mg/dL [facility] Creatinine Clr Calc Pharmacy 63.2 [facility] Comment:Provided height and weight: 154.94 cm,60.7 kg.eGFR (calculated from the MDRD study equation) and eCrCl(calculated from the Cockcroft-Gault equation) are based ondifferent parameters and may not yield comparable results.If eCrCl result is absurd, please check patient'sheight/weight. Estimated Glomerular Filt Rate >60 [facility] Comment:Chronic Kidney Disea se: Estimated GFR < 60 mL/min/1.62a7Kqezsy Kidney Disease: Estimated GFR < 15 mL/min/1.73m2 Glucose 98 60 - 115 mg/dL [facility] Calcium 9.8 8.4 - 10.2 mg/dL [facility] Bilirubin, Total 1.4(H) 0.0 - 1.0 mg/dL [facility] Aspartate Amino Transferase 33(H) 5 - 31 U/L [facility] Alanine Aminotransferase 57(H) 0 - 31 U/L [facility] Total Protein 7.7 6.5 - 8.0 g/dL [facility] Albumin Level 4.6 3.5 - 5.0 g/dL [facility] Alkaline Phosphatase 101 39 - 117 U/L [facility] 08/29/2025 11:1 9 AM EDT 08/29/2025 11:22 AM EDT us Generic External Data Provider LAB BLOOD ORDERAB LES Final Result [facility] [address] [place] [phone] * Influenza A B2 ID NOW ([place]) (08/29/2025 11:16 AM EDT) IDNOW SERIAL# [id number] [facility] Influenza A Negative Negative [facility] Influenza B2 Negative Negative [facility] Influenza A B2 Note See Note [facility] Comment:The Timmons ID NOW In [...] LAB MICROBIOLOGY - GENERAL ORDERABLES Final Result [facility] [address] [place] [phone] * COVID-19 ID NOW ([place]) (08/29/2025 11:16 AM EDT) IDNOW SERIAL# [id number] [facility] COVID-19 TEST Negative Negative [facility] COVID-19 NOTE See Note [facility] Comment: Results are for the identification of SARS-CoV2 RNA. TheSARS-CoV2 RNA is generally detectable in respiratory samplesduring the acute phase of infection. Positive results areindicative of the presence of SARS-CoV-2 RNA; clinicalcorrelation with patient history and other diagnosticinformation is necessary to determine patient infectionstatus. Positive results do not rule out bacterial infectionor co- infection with other viruses.Testing facilities within the [facility] and itsterritories are required to report all [...] use by authorized laboratories.Testing performed on the [email or web address] NOW utilizing [employer]. 08/29/2025 11:1 6 AM EDT 08/29/2025 11:22 AM EDT us Generic External Data Provider LAB MOLECULAR ROCCO GNOSTICS ORDERABLES Final Result [facility] [address] [place] [phone] * (ABNORMAL) Urinalysis, Complete, with Reflex to Culture (08/29/2025 11:16 AM EDT) Color Urine Yellow [facility] Appearance Urine Clear [facility] PH 6.5 5.0 - 9.0 [facility] Glucose Urine UA Negative Negative mg/dL [facility] Urine Blood Trace(A) Negative [facility] Specific [place] - Urine 1.015 1.005 - 1.025 [facility] Urine Protein 300 (3+)(A) Neg-Trace mg/dL [facility] Urine Ketones Negative Negative mg/dL [facility] Nitrite Urine Negative Negative [facility] Leukocyte Esterase Urine Moderate (2+)(A) Negative [facility] RBC Urine 0-2 0 - 2 /HPF [facility] Urine WBC 21-50(A) 0 - 5 /HPF [facility] Urine Squamous Epithelial Cell 6-10 0 - 2 /HPF [facility] Urine Bacteria None Seen None Seen [facility] Hyaline Casts, Urine 0-2 0 - 2 /LPF [facility] 08/29/2025 11:1 6 AM EDT 08/29/2025 11:22 AM EDT Narrative [facility] - 08/29/2025 11:36 AM EDT [id number], Clean Catch us Generic External Data Provider LAB URINE ORDERAB LES Final Result Performing Organization Address City/[facility]/ZIP Co de Phone Number [facility] [address] [place] [phone] * Culture, Urine, Routine (08/29/2025 12:00 AM EDT) Urine Urine specimen obtained by clean catch procedure / Unknown 08/29/2025 08/29/2025 Comment:UACC Narrative [facility] - 08/30/2025 11:51 AM EDT Strep agalactiae (Grp B) Quant 10,000 to 50,000 cfu/mL Susc N/A Susceptibility not routinely performed on this isolate. Specimen Source: Urine clean catch Generic External Data Provider LAB MICROBIOLOGY - GENERAL ORDERABLES Final Result Performing Organization Address [facility] Co de Phone Number [facility] [address] [place] [phone] * (ABNORMAL) Albumin, Random Urine W/Creatinine (06/27/2025 12:00 AM EDT) Creatinine, Urine 48.89 mg/dL [facility] Microalbumin Urine 442.0 mg/L H [facility] Microalbum Creatinine Ratio Ur 904.0(H) <30 ug/mg cr [facility] Comment:Albumin/Creatinine R atio Reference Ranges: Normal: < 30 ug/mg creatinine Microalbuminuria: 30 - 300 ug/mg creatinineClinical Albuminuria: > 300 ug/mg creatinine Urine (Urine, Random) 06/27/2025 06/27/2025 us Cedric Liao MD LAB URINE ORDERABLES Final Resul t Performing Organization Address City/[facility]/ZIP Co de Phone Number [facility] [address] [facility] [place] [phone] * BI Mammogram Screening Tomosynthesis Bilateral (05/28/2025 10:12 AM EDT) Anatomical Region Laterality Modality Breast Bilateral Mammography 05/28/2025 10:1 2 AM EDT Narrative 06/10/2025 9:26 AM EDT [facility] [address] [place] [address] Mammography Report Signed Patient: Maryann Tan MR #: [id number] : 1970 Acct:[id number] Age/Sex: 55 / F ADM Date: 05/28/25 Loc: HO.MAMMO Attending Dr: Cedric Liao MD Ordering Physician: Cedric Liao MD Results: 1Negative Date of Service: 05/28/25 Follow Up: 1 Year From Orig ina Mammogram Procedure(s): MM tomosynthesis screening BI Accession Number(s): [id number] cc: Cedric Liao MD EXAMINATION: MM SCREENING [...] OV> 06/10/25922 DD/ 1012 TD/TT: 05/28/25 1025 Senior Packaging Engineer: Procedure Note Donottorsteninterpreter, Image - 06/10/2025 [facility] [address] [place] [address] Mammography Report Signed Patient: Maryann Tan AMR #: [id number] : 1970Acct:[id number] Age/Sex: 55 / FADM Date: 05/28/25 Loc: HO.MAMMO Attending Dr: Cedric Liao MD Ordering Physician: Cedric Liaoults: 1Negative Date of Service: 05/28/25Follow Up: 1 Year From Orig inal Mammogram Procedure(s): MM tomosynthesis screening BI Accession Number(s): [id number] cc: Cedric Liao MD EXAMINATION: MM SCREENING [...] OV> 06/10/2523 DD/ 1012 TD/TT: 05/28/25 1025 Senior Packaging Engineer: us Cedric Liao MD IMG BI PROCEDURES Final Result * Hepatitis C Antibody with Reflex to HCV, RNA, Quantitative, Real-Time PCR (10/03/2024 11:20 AM EST) Pathologist [facility] Hepatitis C Antibody Nonreactive Nonreactive [facility] Comment:Antibodies to HCV no t detected; does not exclude early acuteHCV infection. Blood Venous blood specimen / Unknown 10/03/2024 11:20 AM EST 10/03/2024 1:16 PM EST us Cedric Liao MD LAB BLOOD ORDERABLES Final Resul t Performing Organization Address [facility] Co de Phone Number [facility] [address] [place] [phone] * HIV-1/2 Antigen and Antibodies, Fourth Generation, with Reflexes (10/03/2024 11:20 AM EST) Pathologist [facility] HIV AB/AG Nonreactive Nonreactive [facility] Comment:HIV-1 p24 Ag and/or HIV-1/HIV-2 Ab not detected.A test result that is nonreactive does not exclude thepossibility of exposure to or infection with HIV-1 and/orHIV-2. Nonreactive results in this assay for individualswith prior exposure to HIV-1 and/or HIV-2 may be due toantigen and antibody levels that are below the limit ofdetection of this assay.The [employer] HIV Ag/Ab Combo assay result andsupplemental assay results should be interpreted inconjunction with the patient's clinical presentation,history and other laboratory results. If the results areinconsistent with clinical evidence, additional testing issuggested to confirm the result. Blood Venous blood specimen / Unknown 10/03/2024 11:20 AM EST 10/03/2024 1:16 PM EST us Cedric Liao MD LAB BLOOD ORDERABLES Final Resul t Performing Organization Address [facility]/ZIP Co de Phone Number [facility] [address] [place] [phone] * (ABNORMAL) Colonoscopy (07/21/2023) Colonoscopy Abnormal(A ) Normal Cedric Name HEALTH MAINTENANCE Final Result * Pap Smear (12/24/2019) Pap Negative for intraephithelial lesion or malignancy Negative for intraephithelial lesion or malignancy, Other HPV Undetected 12/24/2019 Historical Provider HEALTH MAINTENANCE Final Result from Last 3 Months or Most Recently Relevant to Health Maintenance Insurance [facility] * Guarantor: Maryann Tan Account Type Relation to Patient Date of Phone Billing Address Dental Self 1970 [address] [place] [address] DENTAL - HSN PARTIAL (MEDICAID) * Guarantor: Maryann Tan Account Type Relation to Patient Date of Phone Billing Address Personal/Family Self [address] [place] [address] * Guarantor: Maryann Tan Account Type Relation to Patient Date of Phone Billing Address Personal/Family Self [address] [place] [address] [employer] [address] [place] [address] Care Teams I&C Technician Relationship Specialty Start Date End Date Name, MD Cedric [address] [place] [phone] PCP - General Family Medicine 04/06/16
--- OUTSIDE RECORDS SUMMARY | 2025-09-13 12:15 | XMS_ITS | Encounter Summary ---
Author Organization [facility] Address [facility] [address] [place] [address] Phone Care Team Providers Care Geology Technician Name Role Phone Name, Cedric NICK Primary Care Provider [phone] Encounter Details Date Type Department Care Team (Late Contact Info) Description 02/02/2022 Telephone [facility] [address] [place] [address] Jasiel Oliver, [address] [address] Social History Tobacco Use Types Packs/Day Years [...] send to Dr Liao. Thank you FAX# [phone] documented in this encounter Plan of Treatment Upcoming Encounters Date Type Department Care Team (Late Contact Info) Description 09/20/2025 Orders Only [facility] [address] [facility] [address] [place] [address] Buddy Ortiz MD [address] [facility] [address] [place] [address] Nephrolithiasis; Proteinuria, not otherwise specified; Vitamin D deficiency, not otherwise specified 09/23/2025 10:00 AM EST Office Visit [facility] [address] [phone] Buddy Ortiz MD [address] [place] [phone] documented as of this encounter Visit Diagnoses Not on filedocumented in this encounter Care Teams Geology Technician Relationship Specialty Start Date End Date Name, MD Cedric [address] [place] [address] PCP - General Internal Medicine 02/02/22 documented as of this encounter
--- OUTSIDE RECORDS SUMMARY | 2025-09-13 12:15 | XMS_ITS | Encounter Summary ---
Author Organization [employer] Address 75 [facility] 7 [place] [address] Care Team Providers Care Oncology Physician Assistant Name Role Phone Name, Cedric NICK Primary Care Provider [phone] Reason for Visit * Reason Onset Date Comments Results 09/11/2025 Encounter Details Date Type Department Care Team ([facility] st Contact Info) Description 09/11/2025 Results Follow-Up [facility] [address] [place] [address] Deya Melendez MA CBC auto differential, Sed [...] Melendez MA - 09/11/2025 12:00 PM EDT T/[employer]Digital Learning Platforms Manager called and informed Patient about previous message. [...] Description 09/18/2025 3:00 PM EST Office Visit [facility] ADULT DENTAL [address] [place] [address] Jayro, Iza [address] [place] [address] 09/26/2025 10:30 AM EST Office Visit [facility] [address] [place] [address] Name, MD Cedric [address] [place] [address] documented as of this encounter Visit Diagnoses Not on filedocumented in this encounter Additional Health Concerns Assessment Noted Time PHQ-9 Depression Total Score: 0 06/27/20 25 10:35 AM EDT documented as of this encounter Care Teams Oncology Physician Assistant Relationship Specialty Start Date End Date Name, MD Cedric [address] [place] [address] PCP - General Family Medicine 04/06/16 documented as of this encounter
--- OUTSIDE RECORDS SUMMARY | 2025-09-13 12:15 | XMS_ITS | Encounter Summary ---
Author Organization [employer] Address [address] [facility] [address] 7[address] [place] [address] Care Team Providers Care Utility Plant Operative Name Role Phone Name, Cedric NICK Primary Care Provider [phone] Encounter Details Date Type Department Care Team [...] Description 09/18/2025 3:00 PM EST Office Visit [facility] ADULT DENT[facility] [address] [place] [address] Jayro, Iza [address] [place] [address] 09/26/2025 10:30 AM EST Office Visit [facility] [address] [place] [address] Name, MD Cedric [address] [place] [address] documented as of this encounter Visit Diagnoses Not on filedocumented in this encounter Additional Health Concerns Assessment Noted Time PHQ-9 Depression Total Score: 0 06/27/20 25 10:35 AM EDT documented as of this encounter Care Teams Utility Plant Operative Relationship Specialty Start Date End Date NameCedric MD [address] [place] [address] PCP - General Family Medicine 04/06/16 documented as of this encounter
--- OUTSIDE RECORDS SUMMARY | 2025-09-13 12:15 | XMS_ITS | Clinical Summary ---
Author Organization [facility] Address [address] [place] [address] Phone Care Team Providers Care Ready To Wear Department Manager Name Role Phone Physician, No Pcp Primary [...] 11:00 AM EST Consult Orthopedic Oncology - [place] [address] [place] [address] Jarad Quevedo MD [address] [place] [address] Health Maintenance Due Date Last [...] patient's age to complete this topic Insurance [facility] PUBLIC PLANS Care Teams Ready To Wear Department Manager Relationship Specialty Start Date End Date Physician, No Pcp PCP - General 06/14/25
--- OUTSIDE RECORDS SUMMARY | 2025-09-13 12:15 | XMS_ITS | Encounter Summary ---
Author Organization [employer] Address 75 [facility] 7 [place] [address] Care Team Providers Care Laboratory Specialist Name Role Phone Name, Cedric NICK Primary Care Provider [phone] Encounter Details Date Type Department Care Team (Late st Contact Info) Description 04/25/2023 Abstract [facility] [address] [place] [address] Name, MD Cedric [address] [place] [address] Social History Tobacco Use Types Packs/Day Years [...] Description 09/18/2025 3:00 PM EST Office Visit [facility] ADULT DENTAL [address] [place] [address] Iza Dial [address] [place] [address] 09/26/2025 10:30 AM EST Office Visit [facility] [address] [place], [place] [phone] Name, MD Cedric [address] [place] [address] documented as of this encounter Procedures Procedure [...] EDT Recommended 5 year follow up ( [facility] Historical Provider HEALTH MAINTENANCE Final Result documented in this encounter Visit Diagnoses Not on filedocumented in this encounter Additional Health Concerns Assessment Noted Time PHQ-9 Depression Total Score: 0 11/19/19 23 1:50 PM EST documented as of this encounter Care Teams Laboratory Specialist Relationship Specialty Start Date End Date Name, [place] [address] PCP - General Family Medicine 04/06/16 documented as of this encounter
--- OUTSIDE RECORDS SUMMARY | 2025-09-13 12:15 | XMS_ITS | Encounter Summary ---
Author Organization [employer] Address [address] [facility] [address] 7[address] [place] [address] Care Team Providers Care Conservation Or Heritage Architect Name Role Phone Name, Cedric NICK Primary Care Provider [phone] Encounter Details Date Type Department Care Team ([facility] st Contact Info) Description 09/09/2025 Patient Outreach [facility] [address] [place], [place] [phone] Name, MD Cedric [address] [place] [address] Social History Tobacco Use Types Packs/Day Years [...] Emergency Room Visit Date: 09/06/25 Facility[facility] Diagnosis: R Leg Swelling Disposition: Discharged home Discharge summary in the chart: Yes Please contact for a telehealth RN visit * Amber David RN - 09/09/2025 1:56 PM EDT Pt seen at [facility] today 09/10/2025 with Grace Ramsey for a sick onsite ED F/U. Pt seen to follow up on ED visit as shown below regarding ED visit on 09/06/2025 for right leg swelling. documented in this encounter Plan of Treatment Upcoming Encounters Date Type Department Care Team (Late st Contact Info) Description 09/18/2025 3:00 PM EST Office Visit [facility] ADULT DENTAL [address] [place] [address] Jayro Iza [address] [place] [address] 09/26/2025 10:30 AM EST Office Visit [facility] MEDICINE [address] [place] [address] Name, MD Cedric [address] [place] [address] documented as of this encounter Visit Diagnoses Not on filedocumented in this encounter Additional Health Concerns Assessment Noted Time PHQ-9 Depression Total Score: 0 06/27/20 25 10:35 AM EDT documented as of this encounter Care Teams Conservation Or Heritage Architect Relationship Specialty Start Date End Date Name, MD Cedric [address] [place] [address] PCP - General Family Medicine 04/06/16 documented as of this encounter
== END 2025-09-13 12:30 | disposition home or self-care (01) ==
LOC: HO.HGI 10:45
PROVIDERS: PCP Internal Medicine Geriatric Medicine; Visit Provider Nurse Practitioner Family
DX: R10.13 Epigastric pain (principal); Z90.49 Acquired absence of other specified parts of digestive tract; K59.04 Chronic idiopathic constipation; K57.92 Diverticulitis of intestine, part unspecified, without perforation or abscess without bleeding; K43.9 Ventral hernia without obstruction or gangrene; K21.9 Gastro-esophageal reflux disease without esophagitis
CPT/HCPCS: 99214

== ENCOUNTER → 2025-09-13 10:44 | Outpatient (BNVA) | payer OTHER, SELFPAY | PROVIDERS: PCP Internal Medicine Geriatric Medicine; Visit Provider Nurse Practitioner Family | DX: K59.04 Chronic idiopathic constipation (principal); R10.32 Left lower quadrant pain; R14.0 Abdominal distension (gaseous); Z90.49 Acquired absence of other specified parts of digestive tract | CPT/HCPCS: 99212 ==

== ENCOUNTER 2025-10-07 13:50 | Outpatient (AMB) | payer MEDICAID, SELFPAY ==
[2025-10-07 13:51] VITALS: BP 138/82; PULSE 78; BMI 23.3
--- NOTE | 2025-10-07 13:51 | A.OFFVIS_ITS ---
Vital Signs 10/07/25 13:51 Height 5 ft 4 in Weight 136 lb BMI 23.3 BP 138/82 Blood Pressure Location Rt brachial Position Sitting Pulse 78 Intake Visit Reasons: hemorrhoids Intake Note: This patient presents for an assessment for hemorrhoids. Pt c/o; reports last week after a bowel movement she noticed blood on the toilet paper after wiping, reports she is on several stool softners for constipation. Nuclear Medicine Technologist Required: Yes Nuclear Medicine Technologist Language: Front Maker Lockstitch Services: Nuclear Medicine Technologist Present Nuclear Medicine Technologist Name: Wilfredo Information Interpreted: non-clinical & clinical Accompanied by: Self / Same As Patient Allergies ceftriaxone Allergy (Severe, Verified 10/07/25 14:06) Anaphylaxis Iodinated Contrast Media (IV Contrast Dye) Allergy (Severe, Verified 10/07/25 14:06) Anaphylaxis magnesium hydroxide (From Milk of Magnesia) Allergy (Intermediate, Verified 10/07/25 14:06) Rash Medication List - Last Reconciled 10/07/25 by Anibal Almendarez MD acetaminophen (Tylenol Extra Strength) 1,000 mg (2 x 500 mg) PO Q6H PRN acetaminophen 500 mg PO Q6H PRN benzonatate 100 mg PO BID PRN bisacodyl 10 mg PO DAILY carbamide peroxide 6.5% (Debrox) 5 drps otic (ear) right DAILY 4 days clobetasol 0.05% 1 appl topical BID 2 weeks cyclobenzaprine 5 mg PO TID PRN docusate sodium 200 mg (2 x 100 mg) PO BEDTIME empagliflozin (Jardiance) 10 mg PO DAILY hydrocortisone 2.5% (Proctosol HC) 1 appl ID BID-QID PRN hydrocortisone acetate (Anucort-HC) 25 mg ID BID ibuprofen 400 mg PO TID PRN levothyroxine 1 tab PO DAILY linaclotide (Linzess) 145 mcg PO DAILY lisinopril 10 mg PO DAILY naproxen 500 mg PO BID PRN ondansetron 4 mg PO Q6-8H PRN polyethylene glycol 3350 (Miralax) 17 grams PO DAILY terconazole 0.8% 1 appful vaginal BEDTIME 3 days tramadol 50 mg PO Q6H PRN HPI HPI hemorrhoids: Details: [age] year old female referred for hemorrhoid issues. She says she has this history of chronic constipation. She says that 2 weeks ago, she this small amounts of blood on wiping after bowel movement. She also describes having this itching around her perianal area. She is seeing a milling machine tender because of chronic constipation. She says she is already on Linzess for this. She says she is up-to-date with her colonoscopy. [facility] Medical History (Updated 10/07/25 @ 14:25 by Anibal Almendarez MD) Pruritus ani Hemorrhoids with complication Endometrial hyperplasia Heartburn GERD (gastroesophageal reflux disease) Skin lesion of back Kidney stone Vitamin D deficiency Hypothyroidism Surgical History Hx of ventral hernia repair (05/31/24) Hx of unilateral oophorectomy History of surgery Tubal ligation status Hx of colonoscopy Hx of esophagogastroduodenoscopy Family History Father Hypertension Respiratory failure Mother Pancreatic cancer Social History Household Members: Spouse Housing: Apartment Are you a primary hiv/aids care nurse to a significant other at home: No Do you presently have visiting nurse or other home services: No Alcohol intake: never Patient Tobacco Use Status: Never used Tobacco Second Hand Smoke Exposure: No service: No Current occupational status: employed Current occupation: [employer] program Sexual orientation: Straight/Heterosexual Gender identity: Female Female Reproductive History Menstrual Age of Menarche: 16 Review of Systems Const Denies chills and Denies fever(s) Card Denies chest pain, Denies dyspnea and Denies dyspnea on exertion Resp Denies cough, Denies dyspnea and Denies dyspnea on exertion GI Reports hematochezia, Denies change in bowel habits and Reports constipation Denies hematuria Musc Denies back pain and Denies limited range of motion Neuro Denies focal weakness and Denies convulsions Psych Denies depression and Denies mood swings Physical Exam Vital Signs: Last Vital Signs Pulse 78 10/07/25 13:51 BP 138/82 10/07/25 13:51 BMI result Body Mass Index 23.3 Const General: comfortable and no acute distress Orientation/consciousness: patient oriented x3 Neck Neck: Yes no lymphadenopathy Resp Auscultation: clear to auscultation bilaterally Cardio Rhythm: regular rhythm GI Other: Rectal exam shows small external hemorrhoids anterior and posterior Palpation (GI): Soft to palpation, nontender and no guarding Neuro General: patient oriented x3 Office Procedures Anoscopy She was in kneeling lawrence-knife position. The anoscope was gently inserted. A full examination of the anal canal was done. She was noted to have this small internal external hemorrhoidal column, on anteriorly and 1 posteriorly. There were no lesions seen. There was no ulcer or fissure. There was no induration on digital exam. There was no bleeding. She had good sphincter [id number] Assessment & Plan Assessment & Plan (1) Pruritus ani: Code(s): L29.0 - Pruritus ani Category: Medical Plan: She has small internal and external hemorrhoids. She describes frequent itching around her anus because of this. She also noticed 1 episode of bright blood on wiping about 2 weeks ago. She does have a long history of chronic constipation so I explained to her that control of her constipation we will help with her hemorrhoid issues. I will prescribe her Metamucil to help with her constipation symptoms I am also prescribing her Calmoseptine to help with the pruritus ani. She can always follow up with me in the office. Coding Level of Care Code New Pt Level 3 (29812) Diagnoses Pruritus ani L29.0 CPT Codes Details - CPT: 05115-Pcumklpg ([id number])
--- OUTSIDE RECORDS SUMMARY | 2025-10-07 18:43 | XMS_ITS | Clinical Summary ---
Author Organization [facility] Building Address [address] [place] [address] Phone Care Team Providers Care Production Sampler Name Role Phone Physician, No Pcp Primary Care Provider Unavaila ble Encounters Date Type Department Care Team Description 09/23/2025 6:37 PM EST - 09/23/2025 11:59 PM EST Hospital Encounter [facility] MRI [address] [place] [id number] Villonodular synovitis (pigmented), right knee Discharge Disposition: Home or Self Care from Last 3 Months Social History Tobacco Use Types Packs/Day Years [...] 11:00 AM EST Consult Orthopedic Oncology - [place] [address] [place] [address] Jarad Quevedo MD [address] [place], [place] [id number] Health Maintenance Due Date Last Done Comments Breast Cancer Screening 1968 Colorectal Cancer Screening: Colonoscopy 1968 Cervical Cancer Screening: Pap Smear 1989 Pneumococcal Vaccine: 50+ Years (1 of 1 - PCV) 2018 Depression Screening 11/14/2024 Social Influencers of Health Screening 04/12/2025 COVID-19 Vaccine ( season) 2025 04/21/2021, 03/24/2021 Influenza Vaccine (#1) 2025 , 09/16/2020, 08/09/2018, Additional history exists Hypertension/CHF/CAD Annual BMP Blood Test 09/10/2026 09/10/2025, 08/29/2025, 06/27/2025 DTaP,Tdap,and Td Vaccines (2 - Td or Tdap) 05/31/2027 05/31/2017 Cholesterol Screening (Lipid Panel) 03/12/2030 03/12/2025 RSV Immunization Adult Patients (1 - 1-dose 75+ series) 2043 Zoster [...] to complete this topic RSV Immunization Patients Under 20 months Aged Out No longer eligible based on patient's age to complete this topic Varicella Vaccines Aged Out No longer eligible based on patient's age to complete this topic Procedures Procedure Name Priority Date/Time Associated Diagnosis Comments MR KNEE WO CONTRAST RIGHT Routine 09/23/2025 7:40 PM EST Villonodular synovitis (pigmented), right knee from Last 3 Months Results * MR Knee wo Contrast Right (09/23/2025 7:40 PM EST) Anatomical Region Laterality Modality Lower Extremities, Knee Right Magnetic Resonance 09/24/2025 4:39 AM EST Impressions 09/24/2025 4:43 AM EST 1. 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 Tricompartmental degenerative changes of the right knee, greatest in the patellofemoral compartment -------- FINAL REPORT -------- Dictated By: Ericka Solorio Dictated Date: 09/24/2025 04:39 ET Assigned Physician: Ericka Solorio Reviewed and Electronically Signed By: Ericka Solorio Signed Date: 09/24/2025 04:43 ET Workstation ID: [id number] Transcribed By: Self Edit Transcribed Date: 09/24/2025 04:39 ET Narrative 09/24/2025 4:43 AM EST INDICATION: Pigmented villonodular synovitis of rt knee right knee pain and swelling. 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 COMPARISON: None TECHNIQUE: Multiplanar, multisequence MRI examination was performed of the RIGHT knee without intravenous contrast. FINDINGS: Menisci:No medial or lateral meniscal tear. Ligaments:ACL, PCL, MCL, and LCL complex are intact. Tendons:Quadriceps mechanism and popliteus tendon are intact. Bones:Tricompartmental hypertrophic spurring. No acute fracture or dislocation. Borderline patella karly with patellar tilt. Cartilage: Patellofemoral:Moderate to severe cartilage thinning involving the lateral patellar facet extending to the median ridge with underlying cystic change. Mild to moderate cartilage thinning of the medial patellar facet. Moderate cartilage thinning of the lateral trochlear to clear facet with underlying cystic change. Moderate cartilage thinning of the medial trochlear articular facet. Medial tibiofemoral:Mild cartilage thinning involving the weightbearing portion of the medial femoral condyle. Lateral tibiofemoral:Preserved Miscellaneous:Multiple areas of dark signal located throughout the right knee suspicious for PVNS of varying sizes. Right knee joint effusion. Procedure Note Ericka Solorio MD - 09/24/2025 INDICATION: Pigmented villonodular synovitis of rt knee right knee painand swelling. Prior outside MRI from March 2025 demonstrated PVNS andmoderate osteoarthritis of the patellofemoral compartment. COMPARISON: None TECHNIQUE: Multiplanar, multisequence MRI examination was performed ofthe RIGHT knee without intravenous contrast. FINDINGS: Menisci:No medial or lateral meniscal tear. Ligaments:ACL, PCL, MCL, and LCL complex are intact. Tendons:Quadriceps mechanism and popliteus tendon are intact. Bones:Tricompartmental hypertrophic spurring. No acute fracture ordislocation. Borderline patella karly with patellar tilt. Cartilage: Patellofemoral:Moderate to severe cartilage thinning involving the lateralpatellar facet extending to the median ridge with underlying cysticchange. Mild to moderate cartilage thinning of the medial patellar facet.Moderate cartilage thinning of the lateral trochlear to clear facet withunderlying cystic change. Moderate cartilage thinning of the medialtrochlear articular facet. Medial tibiofemoral:Mild cartilage thinning involving the weightbearingportion of the medial femoral condyle. Lateral tibiofemoral:Preserved Miscellaneous:Multiple areas of dark signal located throughout the rightknee suspicious for PVNS of varying sizes. Right knee joint effusion. IMPRESSION: 1. 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 Tricompartmental degenerative changes of the right knee, greatest inthe patellofemoral compartment -------- FINAL REPORT -------- Dictated By: Ericka Solorio Dictated Date: 09/24/2025 04:39 ET Assigned Physician: Ericka Solorio Reviewed and Electronically Signed By: Ericka Solorio Signed Date: 09/24/2025 04:43 ET Workstation ID: [id number] Transcribed By: Self Edit Transcribed Date: 09/24/2025 04:39 ET Grace Ramsey [facility] MRI PROCEDURES Final Result from Last [address] [place] [address] PUBLIC PLANS [facility] [place] MEDICAID ADVANTAGE [address] [place] [address] Care Teams Production Sampler Relationship Specialty Start Date End Date Physician, No Pcp PCP - General 06/14/25
--- OUTSIDE RECORDS SUMMARY | 2025-10-07 18:43 | XMS_ITS | Encounter Summary ---
Author Organization [employer] Address [address] [facility] [address] [place] [address] Care Team Providers Care Vp Of Digital Marketing Name Role Phone Name, Cedric NICK Primary Care Provider [phone] Reason for Visit * Reason Comments Med Refill Encounter Details Date Type Department Care Team ([facility] Contact Info) Description 04/23/2025 Refill [facility] MEDICINE [address] [place], [place] [phone] Name, MD Cedric [address] [place] [address] Social History Tobacco Use Types Packs/Day Years [...] Care Team (Late st Contact Info) Description 03/20/2026 10:15 AM EDT Office Visit [facility] ADULT DENTAL [address] [place] [address] JayroJoshIza [address] [place] [address] documented as of this encounter Visit Diagnoses Not on filedocumented in this encounter Additional Health Concerns Assessment Noted Time PHQ-9 Depression Total Score: 0 02/20/20 24 10:24 AM EDT documented as of this encounter Care Teams Vp Of Digital Marketing Relationship Specialty Start Date End Date Name, MD Cedric [address] [place] [address] PCP - General Family Medicine 04/06/16 documented as of this encounter
--- OUTSIDE RECORDS SUMMARY | 2025-10-07 18:43 | XMS_ITS | Encounter Summary ---
Author Organization [facility] Address [address] [facility] 7t [place] [address] Care Team Providers Care Corporate Lawyer Name Role Phone Name, Cedric NICK Primary Care Provider [phone] Encounter Details Date Type Department Care Team (Late st Contact Info) Description 04/25/2023 Abstract [facility] MEDICINE [address] [place] [address] Name, MD Cedric [address] [place] [address] Social History Tobacco Use Types Packs/Day Years [...] 03/20/2026 10:15 AM EDT Office Visit [facility] ADULT DENTAL [address] [place], [place] [phone] Iza Dial [address] [place] [address] documented as of this encounter Procedures Procedure [...] EDT Recommended 5 year follow up ( [facility] Historical Provider HEALTH MAINTENANCE Final Result documented in this encounter Visit Diagnoses Not on filedocumented in this encounter Additional Health Concerns Assessment Noted Time PHQ-9 Depression Total Score: 0 11/19/19 23 1:50 PM EST documented as of this encounter Care Teams Corporate Lawyer Relationship Specialty Start Date End Date Name, MD Cedric [address] [place] [address] PCP - General Family Medicine 04/06/16 documented as of this encounter
--- OUTSIDE RECORDS SUMMARY | 2025-10-07 18:43 | XMS_ITS | Clinical Summary ---
Author Organization [employer] Address [address] [facility] [address] [place] [address] Care Team Providers Care Cork Insulator Name Role Phone Name, Cedric NICK Primary Care Provider [phone] Allergies Active Allergy Reactions Criticality Noted Date [...] IN WATER AND TAKE ONCE DIRECTED BY [facility] GI DEPT 05/31/20 23 Active Acetaminophen Extra Strength 500 MG tabletIndications: Acquired hypothyroidism TAKE 2 TABLETS BY MOUTH EVERY 8 HOURS NEEDED fevor OR FOR PAIN 90 tablet 07/04/20 24 Active Additional Information Patient not taking.Reported on 09/18/2025 omeprazole (PriLOSEC) [address] capsule Take [...] Once per day. 30 tablet 11 06/27/20 Active cetirizine (ZyrTEC) 10 MG tablet TAKE 1 TABLET BY MOUTH EVERY DAY 30 tablet 2 07/10/20 25 Active lidocaine (Lidoderm) 5 % patchIndications:A cute pain of right knee,Pigmented villonodular synovitis of right knee Apply 1 patch topically Once per day. Remove & discard patch within 12 hours or as directed by MD. 30 patch 09/10/20 25 Active naproxen (Naprosyn) 500 MG tablet Take 500 mg by mouth. 08/29/20 Active traMADol (Ultram) 50 MG tabletIndications: Pigmented villonodular synovitis of right knee Take 1 tablet (50 mg) by mouth every 6 (six) hours if needed for severe pain for up to 5 days. 15 tablet 09/10/20 25 Additional Information Patient not taking.Reported on 09/18/2025 Active Problems Problem Noted Date Diagnosed Date [...] onet of right knee pain. Seen at [facility] 02/02/2025. Work up included a RLE [...] Encounters Date Type Department Care Team Description 09/26/2025 10:30 AM EST Office Visit [facility] [address] [place] [address] Name, MD Cedric 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) 09/26/[address] [address] Cedric Liao MD insurance (Sent message to insurance enrollment to make change for insurance pt alok jaysonia. Insurance enrollment will make change. ) 09/26/2025 Travel 09/18/2025 3:00 PM EST Office Visit [facility] ADULT DENTAL [address] [place] [phone] Iza Dial Dental calculus (Primary Dx); Missing teeth, acquired; Generalized gingival recession; Excessive attrition of teeth, limited to enamel; Dental root caries 09/17/[address] [address] Cedric Liao MD FMLA (Late entry: On 09/16/25 I called the patient, regarding an application for FMLA. She stated that she is requesting continuous leave, for severe right knee pain. She would like for the start date to begin on 08/29/25, and is requesting to be out of work, until she is seen by the orthopedic surgeon on 10/17/25. She is scheduled for a follow up with her PCP on 09/26/25.) 09/16/2025 Orders Only [address] [address] Grace Ramsey NP 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) 09/11/2025 Results Follow-Up [address] [address] Deya Melendez [place] CBC auto differential, Sed Rate by Modified Westergren, C-reactive Protein, Basic Metabolic Panel 09/10/2025 1:30 PM EDT Office Visit [address] [address] Grace Ramsey NP 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); Acute pain of right knee 09/10/2025 Travel 09/09/2025 Patient Outreach [facility] [address] [place], [place] [phone] Cedric Liao MD 09/09/[address] [phone] Cedric Liao MD ER Follow-up 09/05/2025 Telephone [facility] [address] [place] [address] Cedric Liao MD Nurse Triage 08/30/2025 Telephone [facility] [address] [place] [address] Cedric Liao MD Nurse Triage 08/29/2025 Orders Only GENERIC EXTERNAL DATA DEPARTMENT Provider, Generic External Data 07/19/2025 9:40 AM EDT Office Visit [facility] [address] [place] [address] David Hebert MD Acute pain of both shoulders (Primary Dx) 07/19/2025 Travel 07/09/2025 Refill [facility] [address] [place] [address] Cedric Liao MD from Last 3 Months Immunizations Immunization Administration Dates Next Due HepB-CpG 03/29/2023,01/24/2023 Influenza injectable quadriv alent IIV4 with preservative 08/09/2018,08/31/2017,09/21/2016,2015 Influenza injectable quadriv alent preservative free 09/11/2021,09/16/2020 Moderna Covid-19 Vaccine 12+ 04/21/2021 Tdap 05/31/2017 Zoster, Recombinant 01/24/2023,11/22/2022 Social History Tobacco Use Types Packs/Day Years Used Date Smoking Tobacco: Never Passive Smoke Exposure: Never Smokeless Tobacco: Never Tobacco Cessation:Counseling Given: [...] housing situation today? I have lindy aburto 09/26/[address] you li ve. Do you have problems with any of the following? None of the above 09/26/2025 Food Insecurity Answer Date Recorded Within the past 12 months, y ou worried that your food would run out before you got money to buy more: Sometimes True 2024 Within the past 12 months,th e food you bought just didn't last and you didn't have enough money to get more: Never True 09/26/2025 Transportation Answer Date Recorded In the past 12 months, has l ack of transportation kept you from medical appts, meetings, work or from getting things needed for daily living? No 09/26/2025 Utilities Answer Date Recorded In the past 12 months, has t he electric, gas, oil or water company threatened to shut off services in your home? No 09/26/2025 Depression Answer Date Recorded Patient Health Questionnaire-2 Score 0 06/27/2025 Internet Access Answer Date Recorded Internet Access Q1 Yes 09/26/2025 Internet Access Q2 Not on file 09/26/2025 Comments Unknown Sex and Gender Information Value Date Recorded Sex Assigned at Female 09/13/2022 10:29 AM EDT Legal Sex Female 10:29 AM EDT Gender Identity Female 09/13/2022 10:29 AM EDT Sexual Orientation Straight 09/13/2022 10 :29 AM EDT Last Filed Vital Signs Vital Sign Reading Time Taken Comments Blood Pressure 128/80 09/26/2025 10:47 AM EST Pulse 69 09/26/2025 10:47 AM EST Temperature 36.4 C (97.5 F) 09/26/2025 10:47 AM EST Respiratory Rate 16 09/26/2025 10:47 AM EST Oxygen Saturation 98% 09/26/2025 10:47 AM EST Inhaled Oxygen Concentration - - Weight 60.4 kg (133 lb 4 oz) 09/26/2025 10:47 AM EST Height 154.9 cm (5' 1 ) 09/26/2025 10:47 AM EST Body Mass Index 25.18 09/26/2025 10:47 AM EST Plan of Treatment Upcoming Encounters Date Type Department Care Team (Late st Contact Info) Description 03/20/2026 10:15 AM EDT Office Visit [facility] ADULT DENTAL [address] [place] [address] Jayro, Iza [address] [place] [address] Health Maintenance Due Date Last Done Comments CT Colonography 1970 FIT DNA/Cologuard 1970 FIT 1970 FOBT 1970 Sigmoidoscopy 1970 Pneumococcal Vaccine: 50+ Years (1 of 1 - PCV) 2018 Cervical Cancer Screening 12/24/2024 HPV/Cotest 12/24/2024 12/24/2019 Pap Smear 12/24/2024 12/24/2019 COVID-19 Vaccine (3 - season) 2025 04/21/2021, 03/24/2021 Influenza Vaccine (#1) 2025 , 09/16/2020, 08/09/2018, Additional history exists Dental Oral Exam 03/19/2026 09/18/2025, , 04/01/2022, Additional history exists Dental Prophylaxis 03/19/2026 09/18/2025, 0 08/02/2024, 04/01/2022 Alcohol/Substance Use Screening 06/27/2026 06/27/2025 Depression Screening 06/27/2026 06/27/2025, 06/27/20 Dental X-Ray: Bitewings 09/19/2026 09/18/20 25, 08/02/2024, 04/01/2022, Additional history exists Disability Screening 09/26/2026 09/26/2025 SDOH Screening 09/26/2026 09/26/2025 Tobacco Screening 09/26/2026 09/26/2025 Mammogram 05/28/2027 05/28/2025, 05/14, 05/23/2023, Additional history exists DTaP/Tdap/Td Vaccines (2 - Td or Tdap) 05/31/2027 05/31/2017 Colonoscopy 07/21/2028 07/21/2023, 05/25/2018 Colorectal Cancer Screening 07/21/2028 Dental X-Ray: Full Mouth 09/19/2028 025, 04/01/2022, 09/14/2016 Lipid Panel 03/12/2030 03/12/2025, 05/24/2022 RSV Patients and Patients Aged 60 years [...] Procedure Name Priority Date/Time Associated Diagnosis Comments PERIODIC ORAL EVALUATION - ESTABLISHED PATIENT Routine 09/18/2025 3:00 PM EST CASE PRESENTATION, DETAILED AND EXTENSIVE TREATMENT PLANNING Routine 09/18/2025 3:00 PM EST Dental calculus Missing teeth, acquired Generalized gingival recession Excessive attrition of teeth, limited to enamel PROPHYLAXIS - ADULT Routine 09/18/2025 3 :00 PM EST Dental calculus Missing teeth, acquired Generalized gingival recession Excessive attrition of teeth, limited to enamel INTRAORAL - COMPLETE SERIES OF RADIOGRAPHIC IMAGES Routine 09/18/2025 3:00 PM EST Dental calculus Missing teeth, acquired Generalized gingival recession Excessive attrition of teeth, limited to enamel Dental root caries NM KIDNEY FLOW/FUNCTION W PHARMACOLOGICAL INTERVENTION Routine [...] URINE, ROUTINE Routine 08/29/20 12:00 AM EDT BI MAMMOGRAM SCREENING TOMOSYNTHESIS BILATERAL Routine 05/28/2025 10:12 AM EDT LIPID PANEL, STANDARD Routine 03/12/2025 11:17 AM EDT High cholesterol HEPATITIS C AB W/REFL TO HCV RNA, QN, PCR Routine 10/03/2024 11:20 AM EST Healthcare maintenance HIV 1/2 ANTIGEN/ANTIBODY, FOURTH GENERATION W/RFL Routine 10/03/2024 11:20 AM EST Healthcare maintenance HM COLONOSCOPY Routine 07/21/2023 HM PAP/HPV Routine 12/24/2019 from Last 3 Months or Most Recently Relevant to Health Maintenance Results * NM Kidney Flow/Function w/ Pharmacological Intervention (09/11/2025 1:49 PM EDT) Anatomical Region Laterality Modality Body Nuclear Medicine 09/11/2025 1:49 PM EDT Narrative 09/12/2025 7:26 AM EDT [place] [address] Nuclear Medicine Report Signed Patient: Maryann Tan MR #: [id number] : 1970 Acct:[id number] Age/Sex: 55 / F ADM Date: 09/11/25 Loc: MICHAEL Attending Dr: Fatimah REIS Ordering Physician: Fatimah Claudio Date of Service: 09/11/25 Procedure(s): NM renal flow w pharm int Accession Number(s): [id number] cc: Fatimah Claudio; Name,Cedric NICK Reason for [...] 09/12/25 0722 DD/ 1349 TD/TT: 09/11/25 1500 Visual Aid Expert: [facility] Procedure Note Donotuseinterpreter, Image - 09/12/2025 [place] [address] Nuclear Medicine Report Signed Patient: Maryann Tan AMR #: [id number] : 1970Acct:[id number] Age/Sex: 55 / FADM Date: 09/11/25 Loc: MICHAEL Attending Dr: Fatimah REIS Ordering Physician: Fatimah Claudio Date of Service: 09/11/25 Procedure(s): NM renal flow w pharm int Accession Number(s): [id number] cc: Fatimah Claudio; Name,Cedric NICK Reason for [...] 09/12/25 0722 DD/ 1349 TD/TT: 09/11/25 1500 Visual Aid Expert: MARIO [facility] External Provider IMG NM PROCEDURES Edited Result - Final * (ABNORMAL) CBC auto differential (09/10/2025 3:51 PM EDT) Only the most recent of2 resultswithin the time period is included. White Blood Count 6.4 4.8 - 10.8 X10*3/uL [facility] Red Blood Count 4.49 4.20 - 5.50 X10*6/uL [facility] Hemoglobin 12.2 12.0 - 16.0 g/dl [facility] Hematocrit 39.8 37.0 - 47.0 % [facility] Mean Corpuscular Volume 88.6 80.0 - 98.0 fL [facility] Mean Corpuscular Hemoglobin 27.2 27.0 - 33.0 pg [facility] Mean Corpuscular HGB Conc 30.7(L) 31.0 - 35.0 g/dl [facility] Red Cell Distribution Width 12.9 11.0 - 16.0 % [facility] Platelet Count 266 160 - 400 X10*3/uL [facility] Mean Platelet Volume 12.4(H) 9.4 - 12.3 fL [facility] Neutrophils Percent Auto 54.5 45 - 73 % [facility] Imm Gran Pct Auto 0.3 0.0 - 0.4 % [facility] Lymphocytes Percent Auto 35.9 20 - 40 % [facility] Monocytes Percent Auto 6.6 2 - 11 % [facility] Eosinophils Percent Auto 1.3 0 - 4 % [facility] Basophils Percent Auto 1.4 0 - 2 % [facility] NRBC Pct Auto 0.0 0.0 - 0.2 /100WBC [facility] Neutrophils Absolute Auto 3.5 2.0 - 8.3 x10*3/uL [facility] Imm Gran Abs Auto 0.02 0.00 - 0.03 X10*3/uL [facility] Lymphocytes Absolute Auto 2.3 1.2 - 4.9 X10*3/uL [facility] Monocytes Absolute Auto 0.4 0.1 - 1.2 X10*3/uL [facility] Eosinophils Absolute Auto 0.1 0.0 - 0.4 X10*3/uL [facility] Basophils Absolute Auto 0.1 0.0 - 0.2 X10*3/uL [facility] NRBC Abs Auto 0.000 0.0 - 0.012 X10*3/uL [facility] Blood Venous blood specimen / Unknown 09/10/2025 3:51 PM EDT 09/10/2025 6:00 PM EDT Grace Ramsey NP LAB BLOOD ORDERABLES Final Resul t Performing Organization Address [facility] Co de Phone Number [facility] [address] [place] [phone] * (ABNORMAL) Sed Rate by Modified Westergren (09/10/2025 3:51 PM EDT) Pathologist [facility] Erythrocyte Sedimentation Rate 58(H) 0 - 20 MM/HR [facility] Comment:Patients with polycy themia and many hemoglobin abnormalitiesmay have depressed sed rates whereas patients with anemiamay have elevated sed rates. Blood Venous blood specimen / Unknown 09/10/2025 3:51 PM EDT 09/10/2025 6:00 PM EDT Grace Ramsey NP LAB BLOOD ORDERABLES Final Resul t Performing Organization Address [facility] Co de Phone Number [facility] [address] [place] [phone] * (ABNORMAL) C-reactive Protein (09/10/2025 3:51 PM EDT) [facility] C Reactive Protein 5.36(H) < or = 0.50 mg/dL [facility] Blood Venous blood specimen / Unknown 09/10/2025 3:51 PM EDT 09/10/2025 6:00 PM EDT Grace Ramsey EYE CLINIC MANAGER LAB BLOOD ORDERABLES Final Resul t Performing Organization Address [facility] Co de Phone Number [facility] [address] [place] [phone] * (ABNORMAL) Basic Metabolic Panel (09/10/2025 3:51 PM EDT) Pathologist [facility] Sodium 139 135 - 145 mmol/L [facility] Potassium 4.4 3.3 - 5.1 mmol/L [facility] Chloride 103 96 - 108 mmol/L [facility] Carbon Dioxide 28 22 - 29 mmol/L [facility] Anion Gap 12 12 - 20 [facility] Urea Nitrogen (BUN) 8(L) 9 - 16 mg/dL [facility] Creatinine, Serum 0.66 0.5 - 1.4 mg/dL [facility] Estimated Glomerular Filt Rate >60 [facility] Comment:Chronic Kidney Disea se: Estimated GFR < 60 mL/min/1.95n8Srscnc Kidney Disease: Estimated GFR < 15 mL/min/1.73m2 Glucose 92 60 - 115 mg/dL [facility] Calcium 9.3 8.4 - 10.2 mg/dL [facility] Blood Venous blood specimen / Unknown 09/10/2025 3:51 PM EDT 09/10/2025 6:00 PM EDT us Grace Ramsey EYE CLINIC MANAGER LAB BLOOD ORDERABLES Final Resul t [facility] [address] [place] [phone] * XR Knee 4+ Views Right (09/06/2025 7:14 PM EDT) Anatomical Region Laterality Modality Lower Extremities, Knee Right Radiogra phic Imaging 09/06/2025 7:14 PM EDT Narrative 09/06/2025 7:16 PM EDT [address] [address] XRay Report Signed Patient: Maryann Tan MR #: [id number] : 1970 Acct:[id number] Age/Sex: 55 / F ADM Date: 09/06/25 Loc: HO.ED Attending Dr: Ordering Physician: Marichuy Roa NP Date of Service: 09/06/25 Procedure(s): XR knee RT 4V Accession Number(s): [id number] cc: Yanni,Cedric NICK; Marichuy Roa NP Reason for Exam: [...] in OV> 09/06/251914 DD/ 13 TD/TT: 09/06/251913 Visual Aid Expert: Procedure Note Donotuseinterpreter, Image - 09/06/2025 [place] [address] XRay Report Signed Patient: Maryann Tan AMR #: [id number] : 1970Acct:[id number] Age/Sex: 55 / FADM Date: 09/06/25 Loc: .ED Attending Dr: Ordering Physician: Marichuy Roa NP Date of Service: 09/06/25 Procedure(s): XR knee RT 4V Accession Number(s): [id number] cc: Name,Cedric NICK; Marichuy Roa NP Reason [...] in OV> 09/06/251914 DD/ 13 TD/TT: 09/06/251913 Visual Aid Expert: [facility] External Provider IMG XR PROCEDURES Final Result * Blood Culture (First) (08/29/2025 11:54 AM EDT) Blood Venous blood specimen / Unknown 08/29/2025 11:54 AM EDT 08/29/2025 12:01 PM EDT Comment:Blood Narrative [facility] - 09/03/2025 2:02 PM EDT Blood Culture (First) No growth after 5 days. Specimen Source: Blood Generic External Data Provider LAB MICROBIOLOGY - GENERAL ORDERABLES Final Result Performing Organization Address [facility] Co de Phone Number [facility] [address] [place] [phone] * Blood Culture (Second) (08/29/2025 11:54 AM EDT) Blood Venous blood specimen / Unknown 08/29/2025 11:54 AM EDT 08/29/2025 12:59 PM EDT Comment:Blood Narrative [facility] - 09/03/2025 2:59 PM EDT Blood Culture (Second) No growth after 5 days. Specimen Source: Blood Generic External Data Provider LAB MICROBIOLOGY - GENERAL ORDERABLES Final Result Performing Organization Address [facility] Co de Phone Number [facility] [address] [place] [phone] * Lactic Acid (08/29/2025 11:54 AM EDT) Lactic Acid 1.5 0.5 - 2.0 mmol/L [facility] 08/29/2025 11:5 4 AM EDT 08/29/2025 12:01 PM EDT Generic External Data Provider LAB BLOOD ORDERAB LES Final Result Performing Organization Address [facility] Co de Phone Number [facility] [address] [place] [phone] * CT Abdomen Pelvis w/o Contrast (08/29/2025 11:40 AM EDT) Anatomical Region Laterality Modality Body, Pelvis, Abdomen Computed T omography 08/29/2025 11:4 0 AM EDT Narrative 08/29/2025 12:10 PM EDT [address] [address] [address] Scan Report Signed Patient: Maryann Tan MR #: [id number] : 1970 Acct:[id number] Age/Sex: 55 / F ADM Date: 08/29/25 Loc: HO.ED Attending Dr: Ordering Physician: Galindo Stephens Date of Service: 08/29/25 Procedure(s): CT abdomen pelvis wo IV con Accession Number(s): [id number] cc: Galindo Stephens; Name,Cedric NICK Report Number: [id number]: Total DLP = 420.00 mGy-cm Reason for [...] 08/29/25 1207 DD/ 1140 TD/TT: 08/29/25 1150 Visual Aid Expert: Procedure Note Donotuseinterpreter, Image - 08/29/[address] [address] [address] Scan Report Signed Patient: Maryann Tan AMR #: [id number] : 1970Acct:[id number] Age/Sex: 55 / FADM Date: 08/29/25 Loc: HO.ED Attending Dr: Ordering Physician: Galindo Stephens Date of Service: 08/29/25 Procedure(s): CT abdomen pelvis wo IV con Accession Number(s): [id number] cc: Galindo Stephens; Name,Cedric NICK Report Number: [id number]: Total DLP = 420.00 mGy-cm Reason for [...] 08/29/25 1207 DD/ 1140 TD/TT: 08/29/25 1150 Visual Aid Expert: [facility] External Provider IMG CT PROCEDURES Edited Result - Final * HCG, Qualitative, Urine (08/29/2025 11:35 AM EDT) Urine NEGATIVE NEGATIVE [facility] Comment:This test was develo ped to detect early . Falsenegative results may occur after the 5th - 7th week ofpregnancy when using this test method. If clinicallyindicated, consider a serum hCG. 08/29/2025 11:3 5 AM EDT 08/29/2025 11:37 AM EDT us Generic External Data Provider LAB URINE ORDERAB LES Final Result [facility] [address] [place] [phone] * hCG, Total, Quantitative (08/29/2025 11:19 AM EDT) HCG Quantitative 5 mIU/mL [facility] Comment:Weeks post LMP Appro ximate hCG(Last Menstrual Period) Range (mIU/ml)3 - 4 weeks 9 - 1304 - 5 weeks 75 - 2,6005 - 6 weeks 850 - 20,8006 - 7 weeks 4000 - 100,2007 - 12 weeks 11,500 - 289,16834 - 16 weeks 18,300 - 137,45922 - 29 weeks (2nd trimester) 1,400 - 53,10629 - 41 weeks (3rd trimester) 940 - [...] Provider LAB BLOOD ORDERAB LES Final Result [facility] [address] [place] [phone] * (ABNORMAL) Comprehensive Metabolic Panel (08/29/2025 11:19 AM EDT) Sodium 138 135 - 145 mmol/L [facility] Potassium 4.0 3.3 - 5.1 mmol/L [facility] Chloride 102 96 - 108 mmol/L [facility] Carbon Dioxide 27 22 - 29 mmol/L [facility] Anion Gap 13 12 - 20 [facility] Urea Nitrogen (BUN) 11 9 - 16 mg/dL [facility] Creatinine, Serum 0.82 0.5 - 1.4 mg/dL [facility] Creatinine Clr Calc Pharmacy 63.2 [facility] Comment:Provided height and weight: 154.94 cm,60.7 kg.eGFR (calculated from the MDRD study equation) and eCrCl(calculated from the Cockcroft-Gault equation) are based ondifferent parameters and may not yield comparable results.If eCrCl result is absurd, please check patient'sheight/weight. Estimated Glomerular Filt Rate >60 [facility] Comment:Chronic Kidney Disea se: Estimated GFR < 60 mL/min/1.21y6Tafteh Kidney Disease: Estimated GFR < 15 mL/min/1.73m2 Glucose 98 60 - 115 mg/dL [facility] Calcium 9.8 8.4 - 10.2 mg/dL [facility] Bilirubin, Total 1.4(H) 0.0 - 1.0 mg/dL [facility] Aspartate Amino Transferase 33(H) 5 - 31 U/L [facility] Alanine Aminotransferase 57(H) 0 - 31 U/L [facility] Total Protein 7.7 6.5 - 8.0 g/dL [facility] Albumin Level 4.6 3.5 - 5.0 g/dL [facility] Alkaline Phosphatase 101 39 - 117 U/L [facility] 08/29/2025 11:1 9 AM EDT 08/29/2025 11:22 AM EDT us Generic External Data Provider LAB BLOOD ORDERAB LES Final Result [facility] [address] [place] [phone] * Influenza A B2 ID NOW ([place]) (08/29/2025 11:16 AM EDT) IDNOW SERIAL# [id number] [facility] Influenza A Negative Negative [facility] Influenza B2 Negative Negative [facility] Influenza A B2 Note See Note [facility] Comment:The Timmons ID NOW In fluenza [...] GENERAL ORDERABLES Final Result Performing Organization Address [facility] Co de Phone Number [facility] [address] [place] [phone] * COVID-19 ID NOW (TIMMONS) (08/29/2025 11:16 AM EDT) IDNOW SERIAL# [id number] [facility] COVID-19 TEST Negative [...] infection with other viruses.Testing facilities within the [facility] are required to report all positive results [...] GNOSTICS ORDERABLES Final Result Performing Organization Address City/[facility]/ZIP Co de Phone Number [facility] [address] [place] [phone] * (ABNORMAL) Urinalysis, Complete, with Reflex to Culture (08/29/2025 11:16 AM EDT) Color Urine Yellow [facility] Appearance Urine Clear [facility] PH 6.5 5.0 - 9.0 [facility] Glucose Urine UA Negative Negative mg/dL [facility] Urine Blood Trace(A) Negative [facility] Specific Felt - Urine 1.015 1.005 - 1.025 [facility] Urine Protein 300 (3+)(A) Neg-Trace mg/dL [facility] Urine Ketones Negative Negative mg/dL [facility] Nitrite Urine Negative Negative [facility] Leukocyte Esterase Urine Moderate (2+)(A) Negative [facility] RBC Urine 0-2 0 - 2 /HPF [facility] Urine WBC 21-50(A) 0 - 5 /HPF [facility] Urine Squamous Epithelial Cell 6-10 0 - 2 /HPF [facility] [facility] Urine Bacteria None Seen None Seen [facility] Hyaline Casts, Urine 0-2 0 - 2 /LPF [facility] 08/29/2025 11:1 6 AM EDT 08/29/2025 11:22 AM EDT [facility] - 08/29/2025 11:36 AM EDT [id number], Clean Catch us Generic External Data Provider LAB URINE ORDERAB LES Final Result [facility] [address] [place] [address] [phone] * Culture, Urine, Routine (08/29/2025 12:00 AM EDT) Urine Urine specimen obtained by clean catch procedure / Unknown 08/29/2025 08/29/2025 Comment:CC Narrative [facility] - 08/30/2025 11:51 AM EDT Strep agalactiae (Grp B) Quant 10,000 to 50,000 cfu/mL Susc N/A Susceptibility not routinely performed on this isolate. Specimen Source: Urine clean catch us Generic External Data Provider LAB MICROBIOLOGY - GENERAL ORDERABLES Final Result [facility] [address] [facility] [place] [address] [phone] * BI Mammogram Screening Tomosynthesis Bilateral (05/28/2025 10:12 AM EDT) Anatomical Region Laterality Modality Breast Bilateral Mammography 05/28/2025 10:1 2 AM EDT Narrative 06/10/2025 9:26 AM EDT [address] [place] [address] Mammography Report Signed Patient: Maryann Tan MR #: [id number] : [id number] Acct:[id number] Age/Sex: 55 / F ADM Date: 05/28/25 Loc: HO.MAMMO Attending Dr: Cedric Liao MD Ordering Physician: Cedric Liao MD Results: 1Negative Date of Service: 05/28/25 Follow Up: 1 Year From [facility] Mammogram Procedure(s): MM tomosynthesis screening BI Accession Number(s): [id number] cc: Cedric Liao MD EXAMINATION: MM SCREENING [...] 06/10/25 0923 DD/ 1012 TD/TT: 05/28/25 1025 Visual Aid Expert: Procedure Note Donotuseinterpreter, Image - 06/10/2025 [facility] [address] [place] [address] Mammography Report Signed Patient: Maryann Tan AMR #: [id number] : 1970Acct:[id number] Age/Sex: 55 / FADM Date: 05/28/25 Loc: HO.MAMMO Attending Dr: Cedric Liao MD Ordering Physician: Cedric Liaoults: 1Negative Date of Service: 05/28/25Follow Up: 1 Year From Orig ina Mammogram Procedure(s): MM tomosynthesis screening BI Accession Number(s): [id number] cc: Cedric Liao MD EXAMINATION: MM SCREENING [...] 06/10/25 0923 DD/ 1012 TD/TT: 05/28/25 1025 Visual Aid Expert: us Cedric Liao MD IMG BI PROCEDURES Final Result * (ABNORMAL) Lipid Panel, Standard (03/12/2025 11:17 AM EDT) Triglycerides 313(H) <150 mg/dL [facility] Comment:Desirable Triglyceri de: less than 150 mg/dLBorderline High Triglyceride 150-199 mg/dLHigh Triglyceride: 200-499 mg/dLVery High Triglyceride: greater than or equal to 5OO mg/dL Cholesterol 205(H) <200 mg/dL [facility] Comment:Desirable Cholestero l: less than 200 mg/dLBorderline High Cholesterol: 200-239 mg/dLHigh Cholesterol: greater than 239 mg/dL LDL Cholesterol Calculated 102(H) <100 mg/dL [facility] Comment:Desirable LDL: less than 100 mg/dLNear Optimal/Above Optimal LDL: 110- 129 mg/dLBorderline High LDL: 130-159 mg/dLHigh LDL: 160-189 mg/dLVery High LDL: greater than or equal to 190 mg/dL HDL Cholesterol 41 >40 mg/dL [facility] Comment:Desirable HDL: great er than 40 mg/dL Note: This HDL assay may give artificially low results in patients with liver disease. Blood Venous blood specimen / Unknown 03/12/2025 11:17 AM EDT 03/12/2025 1:10 PM EDT us Cedric Liao MD LAB BLOOD ORDERABLES Final Resul t [facility] [address] [place] [phone] * Hepatitis C Antibody with Reflex to HCV, RNA, Quantitative, Real-Time PCR (10/03/2024 11:20 AM EST) Hepatitis C Antibody Nonreactive Nonreactive [facility] Comment:Antibodies to HCV no t detected; does not exclude early acuteHCV infection. Blood Venous blood specimen / Unknown 10/03/2024 11:20 AM EST 10/03/2024 1:16 PM EST us Cedric Liao MD LAB BLOOD ORDERABLES Final Resul t Performing Organization Address City/[facility]/ZIP Co de Phone Number [facility] [address] [place] [phone] * HIV-1/2 Antigen and Antibodies, Fourth Generation, with Reflexes (10/03/2024 11:20 AM EST) HIV AB/AG Nonreactive Nonreactive [facility] Comment:HIV-1 p24 Ag and/or HIV-1/HIV-2 Ab not detected.A test result that is nonreactive does not exclude thepossibility of exposure to or infection with HIV-1 and/orHIV-2. Nonreactive results in this assay for individualswith prior exposure to HIV-1 and/or HIV-2 may be due toantigen and antibody levels that are below the limit ofdetection of this assay.The [employer] HIV Ag/Ab Combo assay result andsupplemental assay results should be interpreted inconjunction with the patient's clinical presentation,history and other laboratory results. If the results areinconsistent with clinical evidence, additional testing issuggested to confirm the result. Blood Venous blood specimen / Unknown 10/03/2024 11:20 AM EST 10/03/2024 1:16 PM EST us Cedric Liao MD LAB BLOOD ORDERABLES Final Resul t [facility] [address] [place] [phone] * (ABNORMAL) Hm Colonoscopy (07/21/2023) Colonoscopy Abnormal(A ) Normal us Cedric Liao MD HEALTH MAINTENANCE Final Result * Hm Pap Smear (12/24/2019) Pap Negative for intraephithelial lesion or malignancy Negative for intraephithelial lesion or malignancy, Other HPV Undetected 12/24/2019 Historical Provider HEALTH MAINTENANCE Final Result from Last 3 Months or Most Recently Relevant to Health Maintenance Insurance [facility] C3 [facility] [place] [place] AD[place] * Guarantor: Maryann Tan Account Type Relation to Patient Date of Phone Billing Address Personal/Family Self [address] [place] [address] * Guarantor: Maryann Tan Account Type Relation to Patient Date of Phone Billing Address Personal/Family Self [address] [place] [address] * Guarantor: Maryann Tan Account Type Relation to Patient Date of Phone Billing Address Personal/Family Self [address] [place] [address] Care Teams Cork Insulator Relationship Specialty Start Date End Date Name, MD Cedric [address] [place] [phone] PCP - General Family Medicine 04/06/16
--- OUTSIDE RECORDS SUMMARY | 2025-10-07 18:44 | XMS_ITS | Encounter Summary ---
Author Organization [facility] Address [address] [place] [address] Care Team Providers Care Diathermy Equipment Repairer Name Role Phone Name, Cedric NICK Primary Care Provider [phone] Encounter Details Date Type Department Care Team ([facility] st Contact Info) Description 09/23/2023 Orders Only [facility] [address] [place] [address] [phone] Name, MD Cedric [address] [place] [address] Social History Tobacco Use Types Packs/Day Years [...] Description 03/20/2026 10:15 AM EDT Office Visit [facility] ADULT DENTAL [address] [place] [address] Iza Dial [address] [place] [address] documented as of this encounter Visit Diagnoses Not on filedocumented in this encounter Additional Health Concerns Assessment Noted Time PHQ-9 Depression Total Score: 0 11/19/19 23 1:50 PM EST documented as of this encounter Care Teams Diathermy Equipment Repairer Relationship Specialty Start Date End Date Name, MD Cedric [address] [place] [address] PCP - General Family Medicine 04/06/16 documented as of this encounter
--- OUTSIDE RECORDS SUMMARY | 2025-10-07 18:44 | XMS_ITS | Encounter Summary ---
Author Organization [employer] [facility] Address [address] [place] [address] Care Team Providers Care Control Equipment Electrician Name Role Phone Name, Cedric NICK Primary Care Provider [phone] Encounter Details Date Type Department Care Team (Latest Contact Info) Description 04/01/2022 Abstract [facility] CONVERSIONS Dental, Provider, DDS Social [...] Description 03/20/2026 10:15 AM EDT Office Visit [facility] ADULT DENTAL [address] [place] [address] Jayro, Iza [address] [place] [address] documented as of this encounter Visit Diagnoses Not on filedocumented in this encounter Care Teams Control Equipment Electrician Relationship Specialty Start Date End Date Name, MD Cedric [address] [place] [address] PCP - General Family Medicine 04/06/16 documented as of this encounter
== END 2025-10-07 14:24 | disposition home or self-care (01) ==
LOC: HO.HGS 13:50
PROVIDERS: PCP Internal Medicine Geriatric Medicine; Visit Provider Surgery
DX: L29.0 Pruritus ani (principal)
CPT/HCPCS: 46600; 99213

== ENCOUNTER → 2025-10-07 13:50 | Outpatient (BNVA) | payer MEDICAID, SELFPAY | PROVIDERS: PCP Internal Medicine Geriatric Medicine; Visit Provider Surgery | DX: L29.0 Pruritus ani (principal) | CPT/HCPCS: 46600; 99212 ==

== ENCOUNTER 2025-11-11 10:27 | Outpatient (AMB) | payer MEDICAID, SELFPAY ==
--- NOTE | 2025-11-11 10:29 | A.OFFVIS_ITS ---
Intake Visit Reasons: 6m/Nuclear Scan/BUN&CREAT/UA(SET) Intake Note: Patient presents today for 6m follow up * Imaging Completed: 09/11/25 NM Renal Flow * Labs done 09/10/25 BUN 8L, Creatine 0.66 Urology Medications: none Blood Thinner: none No Abx Allergy PVR:24ml Assistant Merchandise Manager Required: Yes Assistant Merchandise Manager Services: Assistant Merchandise Manager Present Assistant Merchandise Manager Name: Vikas [phone] Accompanied by: Self / Same As Patient Allergies ceftriaxone Allergy (Severe, Verified 11/11/25 10:57) Anaphylaxis Iodinated Contrast Media (IV Contrast Dye) Allergy (Severe, Verified 11/11/25 10:57) Anaphylaxis magnesium hydroxide (From Milk of Magnesia) Allergy (Intermediate, Verified 11/11/25 10:57) Rash Medication List - Last Reconciled 11/11/25 by DIMPLE Contreras- acetaminophen (Tylenol Extra Strength) 1,000 mg (2 x 500 mg) PO Q6H PRN acetaminophen 500 mg PO Q6H PRN benzonatate 100 mg PO BID PRN bisacodyl 10 mg (2 x 5 mg) PO DAILY carbamide peroxide 6.5% (Debrox) 5 drps otic (ear) right DAILY 4 days clobetasol 0.05% 1 appl topical BID 2 weeks cyclobenzaprine 5 mg PO TID PRN docusate sodium 200 mg (2 x 100 mg) PO BEDTIME empagliflozin (Jardiance) 10 mg PO DAILY hydrocortisone 2.5% (Proctosol HC) 1 appl OH BID-QID PRN hydrocortisone acetate (Anucort-HC) 25 mg OH BID ibuprofen 400 mg PO TID PRN levothyroxine 1 tab PO DAILY linaclotide (Linzess) 145 mcg PO DAILY lisinopril 10 mg PO DAILY menthol-zinc oxide 0.44-20.6 % (Calmoseptine) 1 appl topical QID PRN naproxen 500 mg PO BID PRN ondansetron 4 mg PO Q6-8H PRN polyethylene glycol 3350 (Miralax) 17 grams PO DAILY psyllium seed (sugar) (Metamucil (sugar) oral powder) 1 tbsp PO DAILY terconazole 0.8% 1 appful vaginal BEDTIME 3 days tramadol 50 mg PO Q6H PRN HPI Comments Details: Crecencia is a pleasant 55-year-old Malawian-speaking female of Dr. Liao. She has a past medical history of hemorrhoids with complication, endometrial hyperplasia, GERD, nephrolithiasis, hypothyroidism, and vitamin-D deficiency. She presents to the office today for a follow-up of her longstanding history of nephrolithiasis and hydronephrosis. In discussion with the patient today she re ports to be doing and feeling well. She discusses having recently followed up with Nephrology as well as Gynecology. She discusses her upcoming surgical intervention regarding her right knee. Most recent nuclear renal scan results reviewed with the patient today. 09/07 normal bilateral cortical function of the kidneys. On split renal function of the right kidney contributes 56.2% and left kidney contributes 42.8% enlarged right kidney pelvis on CT of the abdomen 08/29/2025 is likely an extrarenal kidney pelvis. No dilated ureter seen. Post Lasix there is complete emptying of the kidney pelvis with no obstruction seen on either kidney. Labs are as follows: BUN: 07/06 10, 07/06 11, 08/06 10, 04/06 12, 07/07 12, 10/07 0.79, 02/05 14, 07/08 13, 09/07 11, 09/07 8 CREATININE: 09/05 0.95, 07/06 0.84, 08/06 0.77, 04/06 0.65, 07/07 0.78, 10/07 0.79, 02/05 0.74, 07/08 0.71, 09/07 0.82, 09/07 0.66 She currently denies any bothersome urinary issues or concerns. Previous workup has included a renal ultrasound 05/08 that noted moderate right hydronephrosis mild left hydronephrosis otherwise no sonographic evidence of nephrolithiasis therefore nuclear renal study was performed for further assessment evaluation. Patient with a longstanding history of hydronephrosis however in comparison to previous CT and ultrasounds in the past it appears patient with mild hydronephrosis. We did discuss levels of hydronephrosis as well as potential causes of hydronephrosis. She discusses at length her longstanding history of nephrolithiasis and undergoing multiple interventions in [place] many years ago. She denies urinary urgency, incontinence, nocturia, hematuria, dysuria, foul smelling urine, changes to urinary stream, flank pain, fever, and or chills. She is happy with her current voiding parameters. In office urinalysis results reviewed with the patient today. PVR 24 mL. She otherwise offers no other issues or concerns at this time. PREVIOUS OFFICE NOTE: Nephrolithiasis Longstanding Prior left ESWL 2019 On prior imaging was found to have right-sided extrarenal pelvis versus UPJ obstruction Lasix renogram 2019 showed good emptying Imaging - 02/01 CT - no stones during evaluation for abdominal discomfort -01/06 CT- Mild right hydronephrosis with relative decompression of the ureter at the ureterovesicular junction which may reflect a degree of underlying UPJ stenosis; ongoing/ stable surveillance imaging -04/05- renal ultrasound Mild right hydroureteronephrosis similar to prior. No nephrolithiasis appreciated. [facility] Medical History Pruritus ani Hemorrhoids with complication Endometrial hyperplasia Heartburn GERD (gastroesophageal reflux disease) Skin lesion of back Kidney stone Vitamin D deficiency Hypothyroidism Surgical History (Updated 10/11/25 @ 17:44 by Nelly Wharton [facility]) Hx of ventral hernia repair (05/31/24) Hx of unilateral oophorectomy History of surgery Tubal ligation status Hx of colonoscopy Hx of esophagogastroduodenoscopy Family History Father Hypertension Respiratory failure Mother Pancreatic cancer Social History Household Members: Spouse Housing: Apartment Are you a primary career education teacher to a significant other at home: No Do you presently have visiting nurse or other home services: No Alcohol intake: never Patient Tobacco Use Status: Never used Tobacco Second Hand Smoke Exposure: No service: No Current occupational status: employed Current occupation: [employer] Sexual orientation: Straight/Heterosexual Gender identity: Female Female Reproductive History Menstrual Age of Menarche: 16 Review of Systems Const Reports no additional complaints Eyes Reports no additional complaints ENT Reports no additional complaints Card Reports no additional complaints Resp Reports no additional complaints GI Reports as per HPI Reports as per HPI Musc Reports no additional complaints Neuro Reports no additional complaints Psych Reports no additional complaints Endo Reports as per HPI Danis/Lymph Reports no additional complaints Aller/Immun Reports no additional complaints Physical Exam Const General: cooperative, healthy appearing, comfortable, no acute distress, well developed, alert and awake Nutritional Appearance: average body habitus Orientation/consciousness: patient oriented x3 Limitations: no limitations HEENT Head: Yes normal to inspection, Yes normocephalic and Yes atraumatic Ears: hearing grossly normal bilaterally Eyes General: appearance normal, both eyes and all related structures Neck Neck: Yes normal visual inspection and Yes trachea midline Chest Chest palpation & inspection: normal inspection of the chest Resp Effort & Inspection: normal respiratory effort and able to speak in complete sentences Cardio Rate: regular rate GI Inspection: Yes normal to inspection General: Yes no CVA tenderness Back/Spine/Pelvis Back: no CVA tenderness Skin General skin exam: no rashes or lesions noted Neuro General: patient oriented x3 Extrem General: Yes normal to inspection Psych Appearance: grossly normal and well kempt Mental Status: mental status grossly normal Speech and movement: Normal speech and movement present and Clear speech present Affect: normal affect Attitude: cooperative Thought process: Normal thought process present Thought content: Normal thought content present Insight: Fair insight present (Psych) Judgement: Fair judgement present (Psych) Office Procedures Post Void Residual Post Residual Void Post Void Residual (PVR): 24 [id number] Void Residual by ultrasound Results AMB Urinalysis, Automated UA Leukoctes 0 Mercy/uL Last Edit by Kayla Lazar [facility] on 11/11/25 10:40 UA Nitrite Negative Last Edit by Kayla Nagi [facility] on 11/11/25 10:40 UA Urobilinogen 0.2 mg/dL Last Edit by Kayla Nagi [facility] on 11/11/25 10:40 UA Protein 15 mg/dL Last Edit by Kayla Nagi [facility] on 11/11/25 10:40 UA pH 6.0 Last Edit by Kayla Nagi [facility] on 11/11/25 10:40 UA Blood 0 Americo/uL Last Edit by Kayla Nagi [facility] on 11/11/25 10:40 UA Specific Coila 1.010 Last Edit by Kayla Lazar [facility] on 11/11/25 10:4 0 UA Ketone Negative Last Edit by Kaylayadi Lazar [facility] on 11/11/25 10:40 UA Bilirubin 0 mg/dL Last Edit by [facility] Nagi [facility] on 11/11/25 10:40 UA Glucose 1000 mg/dL Last Edit by SAM Workman on 11/11/25 10:40 Results Reviewed Results Reviewed: Laboratory Last Values Urine pH (Auto) 6.0 11/11/25 10:34 Specific Coila (Auto) 1.010 11/11/25 10:34 Urine Protein (Auto) 15 mg/dL 11/11/25 10:34 Glucose (UA)(Auto) 1000 mg/dL 11/11/25 10:34 Urine Ketones (Auto) Negative 11/11/25 10:34 Urine Blood (Auto) 0 Americo/uL 11/11/25 10:34 Urine Nitrite (Auto) Negative 11/11/25 10:34 Urine Bilirubin (Auto) 0 mg/dL 11/11/25 10:34 Urine Urobilinogen (Auto) 0.2 mg/dL 11/11/25 10:34 Leukocyte Esterase (Auto) 0 Mercy/uL 11/11/25 10:34 Date of Service: 09/11/25 Procedure(s): NM renal flow w pharm int FINDINGS: On perfusion there is symmetrical flow seen to both kidneys. On static images there is normal bilateral cortical uptake with progressive accumulation of isotope activity in the right kidney pelvis. Post Lasix there is complete emptying of the kidney pelvis with no obstruction seen on either side. On split renal function right kidney contributes 56.2% and left kidney contributes 42.8% of the total function. Time to peak cortical uptake right kidney is 2 minutes and left kidney is 15 minutes. Post Lasix, time from Lasix to half Lasix right kidney excretion is 17.8 minutes the left kidney is 17.3 minutes. There is no obstruction or hydronephrosis seen on either side. Enlarged right kidney pelvis on CT abdomen exam 08/29/2025 is likely an extrarenal kidney pelvis. No dilated ureter seen. IMPRESSION: Normal bilateral cortical function with the right kidney cannot representing slightly more than left kidney function. Assessment & Plan Assessment & Plan (1) Kidney stone: Code(s): N20.0 - Calculus of kidney Category: Medical (2) Hydronephrosis: Code(s): N13.30 - Unspecified hydronephrosis Category: Medical Plan In office urinalysis results reviewed with the patient today; as noted above. PVR 24 mL. Most recent nuclear renal scan results reviewed with the patient today; as noted above. Was recent BUN and creatinine results reviewed with the patient today; as noted above. We did discussed the importance of management and diabetes for improvement in overall health and well-being. Will continue with surveillance monitoring. She currently denies any bothersome urinary issues or concerns. She reports be happy with current voiding parameters. Will obtain renal ultrasound in 6 months. Will obtain BUN and creatinine in 6 months. Follow-up in 6 months with imaging and labs; or sooner with any issues, concerns, and or questions. Orders: Orders AMB Post Void Residual by ultrasound 11/11/25 N40.1 - Benign prostatic hyperplasia with lower urinary tract symptoms Blood Urea Nitrogen 6 Months R39.15 - Urgency of urination AMB Urinalysis Automated 11/11/25 N13.8 - Other obstructive and reflux uropa thy, N40.1 - Benign prostatic hyperplasia with lower urinary tract symptoms US renal BI 6 Months N13.30 - Unspecified hydronephrosis, N20.0 - Calculus of kidney Creatinine 6 Months R39.15 - Urgency of urination Patient Instructions: The patient had an opportunity to ask questions regarding the treatment plan. All questions were answered. Physical exam, labs, and imaging were discussed and reviewed in detail. As well as risks, benefits, and discussion of treatment choices. No major barriers to understanding were identified. The patient expressed understanding and agreement with the above treatment plan. The patient was made aware they should contact our office by phone for worsening of their current condition, the appearance of new symptoms, or with any questions or concerns. Compliance is encouraged with any medications and follow up testing that is ordered. It is a privilege to be allowed the opportunity to participate in? your urological care.? Again, if you have any questions or concerns If you have any questions or concerns please do not hesitate to contact me. The office is [phone]. This note is constructed using voice recognition software. While every effort has been made to ensure accuracy grinding machine operator automatic errors may have been included. Yours sincerely, CHATO Contreras Coding Level of Care Code Est Pt Level 3 (05697) Add On Problem Visit Only Diagnoses Kidney stone N20.0 Hydronephrosis N13.30 CPT Codes Post Residual Void - PVR CPT Code: 69618-Hyra Void Residual by ultrasound ([id number])
--- OUTSIDE RECORDS SUMMARY | 2025-11-11 11:53 | XMS_ITS | Encounter Summary ---
Author Organization [employer] Address [address] [place] [address] Care Team Providers Care Business Partner Name Role Phone Name, Cedric NICK Primary Care Provider [phone] Reason for Visit * Reason Comments Med Refill Encounter Details Date Type Department Care Team ([facility] Contact Info) Description 04/23/2025 Refill [facility] [address] [place], [place] [phone] Name, MD Cedric [address] [place] [address] Social History Tobacco Use Types Packs/Day Years [...] Description 03/20/2026 10:15 AM EDT Office Visit [facility] ADULT DENTAL [address] [place] [address] JayroJoshIza [address] [place] [address] documented as of this encounter Visit Diagnoses Not on filedocumented in this encounter Additional Health Concerns Assessment Noted Time PHQ-9 Depression Total Score: 0 02/20/20 24 10:24 AM EDT documented as of this encounter Care Teams Business Partner Relationship Specialty Start Date End Date Name, MD Cedric [address] [place] [address] PCP - General Family Medicine 04/06/16 documented as of this encounter
--- OUTSIDE RECORDS SUMMARY | 2025-11-11 11:53 | XMS_ITS | Encounter Summary ---
Author Organization [employer] [facility] Address [address] [facility] [place] [address] Care Team Providers Care Wellhead Pumper Name Role Phone Name, Cedric NICK Primary Care Provider [phone] Encounter Details Date Type Department Care Team (Late st Contact Info) Description 04/25/2023 Abstract [facility] MEDICINE [address] [place] [address] Name, MD Cedric [address] [place] [address] Social History Tobacco Use Types Packs/Day Years [...] Description 03/20/2026 10:15 AM EDT Office Visit [facility] ADULT DENTAL [address] [place], [place] [phone] Iza Dial [address] [place] [address] documented as of this encounter Procedures Procedure [...] EDT Recommended 5 year follow up ( [facility]) Historical Provider HEALTH MAINTENANCE Final Result documented in this encounter Visit Diagnoses Not on filedocumented in this encounter Additional Health Concerns Assessment Noted Time PHQ-9 Depression Total Score: 0 11/19/19 23 1:50 PM EST documented as of this encounter Care Teams Wellhead Pumper Relationship Specialty Start Date End Date Name, MD Cedric [address] [place] [address] PCP - General Family Medicine 04/06/16 documented as of this encounter
--- OUTSIDE RECORDS SUMMARY | 2025-11-11 11:53 | XMS_ITS | Encounter Summary ---
Author Organization [facility] [employer] Address [address] [facility] [address] [place] [address] Care Team Providers Care Class C Truck Driver Name Role Phone Name, Cedric NICK Primary Care Provider [phone] Encounter Details Date Type Department Care Team ([facility] st Contact Info) Description 09/23/2023 Orders Only [facility] MED[facility]INE [address] [place] [phone] Name, MD Cedric [address] [place] [address] Social History Tobacco Use Types Packs/Day Years [...] Description 03/20/2026 10:15 AM EDT Office Visit [facility] [address] [place] [address] Iza Dial [address] [place] [address] documented as of this encounter Visit Diagnoses Not on filedocumented in this encounter Additional Health Concerns Assessment Noted Time PHQ-9 Depression Total Score: 0 11/19/19 23 1:50 PM EST documented as of this encounter Care Teams Class C Truck Driver Relationship Specialty Start Date End Date Name, MD Cedric [address] [place] [address] PCP - General Family Medicine 04/06/16 documented as of this encounter
--- OUTSIDE RECORDS SUMMARY | 2025-11-11 11:53 | XMS_ITS | Clinical Summary ---
Author Organization [employer] Address [address] [place] [address] Care Team Providers Care Security Incident Response Engineer Name Role Phone Name, Cedric NICK Primary Care Provider [phone] Allergies Active Allergy Reactions Criticality Noted Date [...] IN WATER AND TAKE ONCE DIRECTED BY [facility] 05/31/20 23 Active Acetaminophen [...] mouth Once per day. 30 tablet 11 10/08/2025 11:36 AM EST 06/27/20 25 Active cetirizine (ZyrTEC) 10 MG tablet TAKE 1 TABLET BY MOUTH EVERY DAY 30 tablet 2 07/10/20 Active naproxen (Naprosyn) 500 MG tablet Take 500 mg by mouth. 08/29/20 Active Active Problems Problem Noted Date Diagnosed [...] of right knee pain. Seen at [facility] 02/02/2025. Work [...] Encounters Date Type Department Care Team Description 11/05/2025 Telephone [facility] [address] [place] [phone] Cedric Liao MD 11/05/2025 Telephone [facility] [address] [place] [phone] Cedric Liao MD Letter for Work (I called the patient, regarding her request for a letter for work. She stated that her employer is requesting a letter, stating whether or not she is able to return to work. She stated that she would like her leave to be extended until at least November 28, 2025. 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 She is requesting an appointment, to be re-evaluated by Dr. 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 ) 10/16/[address] 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 Insurance enrollment will make change. 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) 09/11/2025 Results Follow-Up [address] [address] Deya Melendez [place] CBC auto differential, Sed Rate by Modified Westergren, C-reactive Protein, Basic Metabolic Panel 09/10/2025 1:30 PM EDT Office Visit [address] [address] Grace Ramsey NP 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); Acute pain of right knee 09/10/2025 Travel 09/09/2025 Patient Outreach [facility] [address] [place], [place] [phone] Cedric Liao MD 09/09/[address] [address] Cedric Liao MD ER Follow-up 09/05/[address] [address] Cedric Liao MD Nurse Triage 08/30/[address] [address] Cedric Liao MD Nurse Triage 08/29/2025 Orders [...] Description 03/20/2026 10:15 AM EDT Office Visit [facility] [address] [place] [address] Iza Dial [address] [place] [address] Health Maintenance Due Date Last Done Comments CT Colonography 1968 FIT DNA/Cologuard 1970 FIT 1968 FOBT 1970 Sigmoidoscopy 1970 Pneumococcal Vaccine: 50+ Years (1 of 1 - PCV) 2018 Cervical Cancer Screening 12/24/2024 HPV/Cotest 12/24/2024 12/24/2019 Pap Smear 12/24/2024 12/24/2019 COVID-19 Vaccine ( season) 2025 04/21/2021, 03/24/2021 [...] Dental X-Ray: Full Mouth 09/19/2028 025, 04/01/2022, 04/01/2022, Additional history exists Lipid Panel 03/12/2030 03/12/2025, 05/24/2022 RSV Patients [...] Procedure Name Priority Date/Time Associated Diagnosis Comments AMB REFERRAL TO ORTHOPAEDIC SURGERY Urgent 10/29/2025 Pigmented villonodular synovitis of right knee PERIODIC ORAL EVALUATION - ESTABLISHED PATIENT Routine [...] Recently Relevant to Health Maintenance Results * Referral to Orthopaedic Surgery (10/29/2025) us Cedric Name OUTPATIENT REFERRAL ORDERABLES F inal Result * NM Kidney Flow/Function w/ Pharmacological Intervention (09/11/2025 1:49 PM EDT) Anatomical Region Laterality Modality Body Nuclear Medicine 09/11/2025 1:49 PM EDT Narrative 09/12/2025 7:26 AM EDT [address] [address] Nuclear Medicine Report Signed Patient: Maryann Tan MR #: [id number] : 1970 Acct:[id number] Age/Sex: 55 / F ADM Date: 09/11/25 Loc: MICHAEL Attending Dr: Fatimah Claudio [facility] Ordering Physician: Fatimah Claudio Date of Service: 09/11/25 Procedure(s): NM renal flow w pharm int Accession Number(s): [id number] [facility]; Name,Cedric NICK Reason for Exam: N13.30 [...] 09/12/25 0722 DD/ 1349 TD/TT: 09/11/25 1500 Hall Supervisor: [facility] Procedure Note Donotuseinterpreter, Image - 10/30/[address] [address] Nuclear Medicine Report Signed Patient: Maryann Tan AMR #: [id number] : 1970Acct:[id number] Age/Sex: 55 / FADM Date: 09/11/25 Loc: MICHAEL Attending Dr: Fatimah REIS Ordering Physician: Fatimah Claudio Date of Service: 09/11/25 Procedure(s): NM renal flow w pharm int Accession Number(s): [id number] cc: Fatimah Claudio; Name,Cedric NICK Reason for [...] James Llanos MD 09/12/2025 07:22 AM EDT RP Dictated By: James Llanos MD Signed By: <Electronically signed by James Llanos MD in OV> 09/12/25 0722 DD/ 1349 TD/TT: 09/11/25 1500 Hall Supervisor: MARIO [facility] External Provider IMG NM PROCEDURES Edited Result - Final * (ABNORMAL) CBC auto differential (09/10/2025 3:51 PM EDT) Only the most recent of2 resultswithin the time period is included. White Blood Count 6.4 4.8 - 10.8 X10*3/uL [facility] Red Blood Count 4.49 4.20 - 5.50 X10*6/uL [facility] Hemoglobin 12.2 12.0 - 16.0 g/dl [facility] Hematocrit 39.8 37.0 - 47.0 % [facility] Mean Corpuscular Volume 88.6 80.0 - 98.0 fL [facility] Mean Corpuscular Hemoglobin 27.2 27.0 - 33.0 pg [facility] Mean Corpuscular HGB Conc 30.7(L) 31.0 - 35.0 g/dl [facility] Red Cell Distribution Width 12.9 11.0 - 16.0 % [facility] Platelet Count 266 160 - 400 X10*3/uL [facility] Mean Platelet Volume 12.4(H) 9.4 - 12.3 fL [facility] Neutrophils Percent Auto 54.5 45 - 73 % [facility] Imm Gran Pct Auto 0.3 0.0 - 0.4 % [facility] Lymphocytes Percent Auto 35.9 20 - 40 % [facility] Monocytes Percent Auto 6.6 2 - 11 % [facility] Eosinophils Percent Auto 1.3 0 - 4 % [facility] Basophils Percent Auto 1.4 0 - 2 % [facility] NRBC Pct Auto 0.0 0.0 - 0.2 /100WBC [facility] Neutrophils Absolute Auto 3.5 2.0 - 8.3 x10*3/uL [facility] Imm Gran Abs Auto 0.02 0.00 - 0.03 X10*3/uL [facility] Lymphocytes Absolute Auto 2.3 1.2 - 4.9 X10*3/uL [facility] Monocytes Absolute Auto 0.4 0.1 - 1.2 X10*3/uL [facility] Eosinophils Absolute Auto 0.1 0.0 - 0.4 X10*3/uL [facility] Basophils Absolute Auto 0.1 0.0 - 0.2 X10*3/uL [facility] NRBC Abs Auto 0.000 0.0 - 0.012 X10*3/uL [facility] Blood Venous blood specimen / Unknown 09/10/2025 3:51 PM EDT 09/10/2025 6:00 PM EDT Grace Ramsey NP LAB BLOOD ORDERABLES Final Resul t Performing Organization Address City/[facility] Co de Phone Number [facility] [address] [place] [phone] * (ABNORMAL) Sed Rate by Modified Venkatren (09/10/2025 3:51 PM EDT) [facility] Erythrocyte Sedimentation Rate 58(H) 0 - 20 MM/HR [facility] Comment:Patients with polycy themia and many hemoglobin abnormalitiesmay have depressed sed rates whereas patients with anemiamay have elevated sed rates. Blood Venous blood specimen / Unknown 09/10/2025 3:51 PM EDT 09/10/2025 6:00 PM EDT Grace Ramsey NP LAB BLOOD ORDERABLES Final Resul t Performing Organization Address City/[facility] Co de Phone Number [facility] [address] [place] [phone] * (ABNORMAL) C-reactive Protein (09/10/2025 3:51 PM EDT) [facility] C Reactive Protein 5.36(H) < or = 0.50 mg/dL [facility] Blood Venous blood specimen / Unknown 09/10/2025 3:51 PM EDT 09/10/2025 6:00 PM EDT us Grace Ramsey [employer] LAB BLOOD ORDERABLES Final Resul t Performing Organization Address [facility] de Phone Number [facility] [address] [place] [phone] * (ABNORMAL) Basic Metabolic Panel (09/10/2025 3:51 PM EDT) [facility] Sodium 139 135 - 145 mmol/L [facility] Potassium 4.4 3.3 - 5.1 mmol/L [facility] Chloride 103 96 - 108 mmol/L [facility] Carbon Dioxide 28 22 - 29 mmol/L [facility] Anion Gap 12 12 - 20 [facility] Urea Nitrogen (BUN) 8(L) 9 - 16 mg/dL [facility] Creatinine, Serum 0.66 0.5 - 1.4 mg/dL [facility] Estimated Glomerular Filt Rate >60 [facility] Comment:Chronic Kidney Disea se: Estimated GFR < 60 mL/min/1.95u1Urqwqr Kidney Disease: Estimated GFR < 15 mL/min/1.73m2 Glucose 92 60 - 115 mg/dL [facility] Calcium 9.3 8.4 - 10.2 mg/dL [facility] Blood Venous blood specimen / Unknown 09/10/2025 3:51 PM EDT 09/10/2025 6:00 PM EDT us Grace Ramsey [employer] LAB BLOOD ORDERABLES Final Resul t Performing Organization Address [facility] Co de Phone Number [facility] [address] [place] [phone] * XR Knee 4+ Views Right (09/06/2025 7:14 PM EDT) Anatomical Region Laterality Modality Lower Extremities, Knee Right [facility] 09/06/2025 7:14 PM EDT Narrative 09/06/2025 7:16 PM EDT [address] [address] XRay Report Signed Patient: Maryann Tan MR #: [id number] : 1970 Acct:[id number] Age/Sex: 55 / F ADM Date: 09/06/25 Loc: HO.ED Attending Dr: Ordering Physician: Marichuy Roa NP Date of Service: 09/06/25 Procedure(s): XR knee RT 4V Accession Number(s): [id number] cc: Cedric Liao MD; Marichuy Roa NP [...] in OV> 09/06/251914 DD/ 13 TD/TT: 09/06/251913 Hall Supervisor: Procedure Note Donotuseinterpreter, Image - 09/06/[address] [address] XRay Report Signed Patient: Maryann Tan AMR #: [id number] : 1970Acct:[id number] Age/Sex: 55 / FADM Date: 09/06/25 Loc: HO.ED Attending Dr: Ordering Physician: Marichuy Roa NP Date of Service: 09/06/25 Procedure(s): XR knee RT 4V Accession Number(s): [id number] cc: Cedric Liao MD; Marichuy Roa NP [...] in OV> 09/06/251914 DD/ 13 TD/TT: 09/06/251913 Hall Supervisor: [facility] External Provider IMG XR PROCEDURES Final Result * Blood Culture (First) (08/29/2025 11:54 AM EDT) Blood Venous blood specimen / Unknown 08/29/2025 11:54 AM EDT 08/29/2025 12:01 PM EDT Comment:Blood Narrative [facility] - 09/03/2025 2:02 PM EDT Blood Culture (First) No growth after 5 days. Specimen Source: Blood Generic External Data Provider LAB MICROBIOLOGY - GENERAL ORDERABLES Final Result Performing Organization Address [facility]/ZIP Co de Phone Number [facility] [address] [place] [phone] * Blood Culture (Second) (08/29/2025 11:54 AM EDT) Blood Venous blood specimen / Unknown 08/29/2025 11:54 AM EDT 08/29/2025 12:59 PM EDT Comment:Blood Narrative [facility] - 09/03/2025 2:59 PM EDT Blood Culture (Second) No growth after 5 days. Specimen Source: Blood Generic External Data Provider LAB MICROBIOLOGY - GENERAL ORDERABLES Final Result [facility] [address] [place] [phone] * Lactic Acid (08/29/2025 11:54 AM EDT) Lactic Acid 1.5 0.5 - 2.0 mmol/L [facility] 08/29/2025 11:5 4 AM EDT 08/29/2025 12:01 PM EDT us Generic External Data Provider LAB BLOOD ORDERAB LES Final Result Performing Organization Address [facility] Co de Phone Number [facility] [address] [place] [phone] * CT Abdomen Pelvis w/o Contrast (08/29/2025 11:40 AM EDT) Anatomical Region Laterality Modality Body, Pelvis, Abdomen Computed T omography 08/29/2025 11:4 0 AM EDT Narrative 08/29/2025 12:10 PM EDT [address] [address] [address] Scan Report Signed Patient: Maryann Tan MR #: [id number] : 1970 Acct:[id number] Age/Sex: 55 / F ADM Date: 08/29/25 Loc: HO.ED Attending Dr: Ordering Physician: Galindo Stephens Date of Service: 08/29/25 Procedure(s): CT abdomen pelvis wo IV con Accession Number(s): [id number] cc: Galindo Stephens; Name,Cedric NICK Report Number: [id number]: Total DLP = 420.00 mGy-cm Reason for [...] 08/29/25 1207 DD/ 1140 TD/TT: 08/29/25 1150 Hall Supervisor: Procedure Note Donotuseinterpreter, Image - 08/29/[address] [address] [address] Scan Report Signed Patient: Maryann Tan AMR #: [id number] : 1970Acct:[id number] Age/Sex: 55 / FADM Date: 08/29/25 Loc: HO.ED Attending Dr: Ordering Physician: Galindo Stephens Date of Service: 08/29/25 Procedure(s): CT abdomen pelvis wo IV con Accession Number(s): [id number] cc: Galindo Stephens; Name,Cedric NICK Report Number: [id number]: Total DLP = 420.00 mGy-cm Reason for [...] 08/29/25 1207 DD/ 1140 TD/TT: 08/29/25 1150 Hall Supervisor: [facility] External Provider IMG CT PROCEDURES Edited Result - Final * HCG, Qualitative, Urine (08/29/2025 11:35 AM EDT) Urine NEGATIVE NEGATIVE [facility] Comment:This test was develo ped to detect early . Falsenegative results may occur after the 5th - 7th week ofpregnancy when using this test method. If clinicallyindicated, consider a serum hCG. 08/29/2025 11:3 5 AM EDT 08/29/2025 11:37 AM EDT us Generic External Data Provider LAB URINE ORDERAB LES Final Result Performing Organization Address City/[facility]/ZIP Co de Phone Number [facility] [address] [place] [phone] * hCG, Total, Quantitative (08/29/2025 11:19 AM EDT) HCG Quantitative 5 mIU/mL [facility] Comment:Weeks post LMP Appro ximate hCG(Last Menstrual Period) Range (mIU/ml)3 - 4 weeks 9 - 1304 - 5 weeks 75 - 2,6005 - 6 weeks 850 - 20,8006 - 7 weeks 4000 - 100,2007 - 12 weeks 11,500 - 289,25441 - 16 weeks 18,300 - 137,75933 - 29 weeks (2nd trimester) 1,400 - 53,86711 - 41 weeks (3rd trimester) 940 - [...] ORDERAB LES Final Result Performing Organization Address City/[facility]/ZIP Co de Phone Number [facility] [address] [place] [phone] [phone] * (ABNORMAL) Comprehensive Metabolic Panel (08/29/2025 11:19 AM EDT) Sodium 138 135 - 145 mmol/L [facility] Potassium 4.0 3.3 - 5.1 mmol/L [facility] Chloride 102 96 - 108 mmol/L [facility] Carbon Dioxide 27 22 - 29 mmol/L [facility] Anion Gap 13 12 - 20 [facility] Urea Nitrogen (BUN) 11 9 - 16 mg/dL [facility] Creatinine, Serum 0.82 0.5 - 1.4 mg/dL [facility] Creatinine Clr Calc Pharmacy 63.2 [facility] Comment:Provided height and weight: 154.94 cm,60.7 kg.eGFR (calculated from the MDRD study equation) and eCrCl(calculated from the Cockcroft-Gault equation) are based ondifferent parameters and may not yield comparable results.If eCrCl result is absurd, please check patient'sheight/weight. Estimated Glomerular Filt Rate >60 [facility] Comment:Chronic Kidney Disea se: Estimated GFR < 60 mL/min/1.92h3Ewerwf Kidney Disease: Estimated GFR < 15 mL/min/1.73m2 Glucose 98 60 - 115 mg/dL [facility] Calcium 9.8 8.4 - 10.2 mg/dL [facility] Bilirubin, Total 1.4(H) 0.0 - 1.0 mg/dL [facility] Aspartate Amino Transferase 33(H) 5 - 31 U/L [facility] Alanine Aminotransferase 57(H) 0 - 31 U/L [facility] Total Protein 7.7 6.5 - 8.0 g/dL [facility] Albumin Level 4.6 3.5 - 5.0 g/dL [facility] Alkaline Phosphatase 101 39 - 117 U/L [facility] 08/29/2025 11:1 9 AM EDT 08/29/2025 11:22 AM EDT us Generic External Data Provider LAB BLOOD ORDERAB LES Final Result [facility] [address] [place] [phone] * Influenza A B2 ID NOW ([place]) (08/29/2025 11:16 AM EDT) IDNOW SERIAL# [id number] [facility] Influenza A Negative Negative [facility] Influenza B2 Negative Negative [facility] Influenza A B2 Note See Note [facility] Comment:The Timmons ID NOW In [...] LAB MICROBIOLOGY - GENERAL ORDERABLES Final Result [facility] [address] [place] [phone] * COVID-19 ID NOW ([place]) (08/29/2025 11:16 AM EDT) IDNOW SERIAL# [id number] [facility] COVID-19 TEST Negative Negative [facility] COVID-19 NOTE See Note [facility] Comment: Results are for the identification of SARS-CoV2 RNA. TheSARS-CoV2 RNA is generally detectable in respiratory samplesduring the acute phase of infection. Positive results areindicative of the presence of SARS-CoV-2 RNA; clinicalcorrelation with patient history and other diagnosticinformation is necessary to determine patient infectionstatus. Positive results do not rule out bacterial infectionor co- infection with other viruses.Testing facilities within the [facility] and itsterritories are required to report [...] use by authorized laboratories.Testing performed on the [employer] Software ID NOW utilizing NAAT. 08/29/2025 11:1 6 AM EDT 08/29/2025 11:22 AM EDT us Generic External Data Provider LAB MOLECULAR ROCCO GNOSTICS ORDERABLES Final Result [facility] [address] [place] [phone] * (ABNORMAL) Urinalysis, Complete, with Reflex to Culture (08/29/2025 11:16 AM EDT) Color Urine Yellow [facility] Appearance Urine Clear [facility] PH 6.5 5.0 - 9.0 [facility] Glucose Urine UA Negative Negative mg/dL [facility] Urine Blood Trace(A) Negative [facility] Specific Reading - Urine 1.015 1.005 - 1.025 [facility] Urine Protein 300 (3+)(A) Neg-Trace mg/dL [facility] Urine Ketones Negative Negative mg/dL [facility] Nitrite Urine Negative Negative [facility] Leukocyte Esterase Urine Moderate (2+)(A) Negative [facility] RBC Urine 0-2 0 - 2 /HPF [facility] Urine WBC 21-50(A) 0 - 5 /HPF [facility] Urine Squamous Epithelial Cell 6-10 0 - 2 /HPF [facility] Urine Bacteria None Seen None Seen [facility] Hyaline Casts, Urine 0-2 0 - 2 /LPF [facility] 08/29/2025 11:1 6 AM EDT 08/29/2025 11:22 AM EDT [facility] - 08/29/2025 11:36 AM EDT [id number], Clean Catch Generic External Data Provider LAB URINE ORDERAB LES Final Result Performing Organization Address [facility] Co de Phone Number [facility] [address] [place] [phone] * Culture, Urine, Routine (08/29/2025 12:00 AM EDT) Urine Urine specimen obtained by clean catch procedure / Unknown 08/29/2025 08/29/2025 Comment:[facility] - 08/30/2025 11:51 AM EDT Strep agalactiae (Grp B) Quant 10,000 to 50,000 cfu/mL Susc N/A Susceptibility not routinely performed on this isolate. Specimen Source: Urine clean catch Generic External Data Provider LAB MICROBIOLOGY - GENERAL ORDERABLES Final Result Performing Organization Address [facility] Co de Phone Number [facility] [address] [place] [phone] * BI Mammogram Screening Tomosynthesis Bilateral (05/28/2025 10:12 AM EDT) Anatomical Region Laterality Modality Breast Bilateral Mammography 05/28/2025 10:1 2 AM EDT Narrative 06/10/2025 9:26 AM EDT [facility] [address] [place] [address] Mammography Report Signed Patient: Maryann Tan MR #: [id number] : 1970 Acct:[id number] Age/Sex: 55 / F ADM Date: 05/28/25 Loc: LEOLA Attending Dr: Cedric Liao MD Ordering Physician: Cedric Liao MD Results: 1Negative Date of Service: 05/28/25 Follow Up: 1 Year From Orig inal Mammogram Procedure(s): MM tomosynthesis screening BI Accession Number(s): [id number] cc: Cedric Liao MD EXAMINATION: MM SCREENING [...] 06/10/25 0923 DD/ 1012 TD/TT: 05/28/25 1025 Hall Supervisor: Procedure Note Donotuseinterpreter, Image - [facility]/10/[facility] [address] [place] [address] Mammography Report Signed Patient: Maryann Tan AMR #: [id number] : 1970Acct:[id number] Age/Sex: 55 / FADM Date: 05/28/25 Loc: HO.MAMMO Attending Dr: Cedric Liao MD Ordering Physician: Cedric Liaoults: 1Negative Date of Service: 05/28/25Follow Up: 1 Year From Orig inal Mammogram Procedure(s): MM tomosynthesis screening BI Accession Number(s): [id number] cc: Cedric Liao MD EXAMINATION: MM SCREENING [...] 06/10/25 0923 DD/ 1012 TD/TT: 05/28/25 1025 Hall Supervisor: us Cedric Name IMPrabhu BI PROCEDURES Final Result * (ABNORMAL) Lipid Panel, Standard (03/12/2025 11:17 AM EDT) Triglycerides 313(H) <150 mg/dL [facility] Comment:Desirable Triglyceri de: less than 150 mg/dLBorderline High Triglyceride 150-199 mg/dLHigh Triglyceride: 200-499 mg/dLVery High Triglyceride: greater than or equal to 5OO mg/dL Cholesterol 205(H) <200 mg/dL [facility] Comment:Desirable Cholestero l: less than 200 mg/dLBorderline High Cholesterol: 200-239 mg/dLHigh Cholesterol: greater than 239 mg/dL LDL Cholesterol Calculated 102(H) <100 mg/dL [facility] Comment:Desirable LDL: less than 100 mg/dLNear Optimal/Above Optimal LDL: 110- 129 mg/dLBorderline High LDL: 130-159 mg/dLHigh LDL: 160-189 mg/dLVery High LDL: greater than or equal to 190 mg/dL HDL Cholesterol 41 >40 mg/dL [facility] Comment:Desirable HDL: great er than 40 mg/dL Note: This HDL assay may give artificially low results in patients with liver disease. Blood Venous blood specimen / Unknown 03/12/2025 11:17 AM EDT 03/12/2025 1:10 PM EDT us Cedric Liao MD LAB BLOOD ORDERABLES Final Resul t Performing Organization Address [facility] Co de Phone Number [facility] [address] [place] [phone] * Hepatitis C Antibody with Reflex to HCV, RNA, Quantitative, Real-Time PCR (10/03/2024 11:20 AM EST) Hepatitis C Antibody Nonreactive Nonreactive [facility] Comment:Antibodies to HCV no t detected; does not exclude early acuteHCV infection. Blood Venous blood specimen / Unknown 10/03/2024 11:20 AM EST 10/03/2024 1:16 PM EST us Cedric Liao MD LAB BLOOD ORDERABLES Final Resul t Performing Organization Address [facility] de Phone Number [facility] [address] [place] [phone] * HIV-1/2 Antigen and Antibodies, Fourth Generation, with Reflexes (10/03/2024 11:20 AM EST) HIV AB/AG Nonreactive Nonreactive [facility] Comment:HIV-1 p24 Ag and/or HIV-1/HIV-2 Ab not detected.A test result that is nonreactive does not exclude thepossibility of exposure to or infection with HIV-1 and/orHIV-2. Nonreactive results in this assay for individualswith prior exposure to HIV-1 and/or HIV-2 may be due toantigen and antibody levels that are below the limit ofdetection of this assay.The [employer] HIV Ag/Ab Combo assay result andsupplemental assay results should be interpreted inconjunction with the patient's clinical presentation,history and other laboratory results. If the results areinconsistent with clinical evidence, additional testing issuggested to confirm the result. Blood Venous blood specimen / Unknown 10/03/2024 11:20 AM EST 10/03/2024 1:16 PM EST us Cedric Liao MD LAB BLOOD ORDERABLES Final Resul t [facility] [address] [place] [phone] * (ABNORMAL) Colonoscopy (07/21/2023) Colonoscopy Abnormal(A ) Normal Cedric Liao MD HEALTH MAINTENANCE Final Result * Pap Smear (12/24/2019) Pap Negative for intraephithelial lesion or malignancy Negative for intraephithelial lesion or malignancy, Other HPV Undetected 12/24/2019 [facility] Provider HEALTH MAINTENANCE Final Result from Last 3 Months or Most Recently Relevant to Health Maintenance Insurance [place] [address] [employer] [facility] MEDICAID STAND ADULT * Guarantor: Maryann Tan A Account Type Relation to Patient Date of Phone Billing Address Personal/Family Self [address] [place] [address] * Guarantor: Maryann Tan A Account Type Relation to Patient Date of Phone Billing Address Personal/Family Self [address] [place] [address] * Guarantor: Maryann Tan A Account Type Relation to Patient Date of Phone Billing Address Personal/Family Self [address] [place] [address] Care Teams Security Incident Response Engineer Relationship Specialty Start Date End Date Name, MD Cedric [address] [place] [address] PCP - General Family Medicine 04/06/16
--- OUTSIDE RECORDS SUMMARY | 2025-11-11 11:53 | XMS_ITS | Encounter Summary ---
Author Organization [facility] Address [address] [facility] [address] [place] [address] Phone Care Team Providers Care Bindery Supervisor Name Role Phone Name, Cedric NICK Primary Care Provider [phone] Encounter Details Date Type Department Care Team (Late Contact Info) Description 02/02/2022 Telephone [facility] [address] [facility] [address] [place] [address] OliverJasiel, DO [address] [place] [address] Social History Tobacco Use Types Packs/Day Years [...] send to Dr Liao. Thank you FAX# [phone] documented in this encounter Plan of Treatment Upcoming Encounters Date Type Department Care Team (Late Contact Info) Description 09/23/2026 10:20 AM EST Office Visit [facility] [address] [facility] [address] [place] [phone] [place] [address] [place] [phone] documented as of this encounter Visit Diagnoses Not on filedocumented in this encounter Care Teams Bindery Supervisor Relationship Specialty Start Date End Date Name, MD Cedric [address] [place] [phone] PCP - General Internal Medicine 02/02/22 documented as of this encounter
--- OUTSIDE RECORDS SUMMARY | 2025-11-11 11:53 | XMS_ITS | Encounter Summary ---
Author Organization [employer] Address [address] [place] [address] Care Team Providers Care Casting Sorter Name Role Phone Name, Cedric NICK Primary Care Provider [phone] Encounter Details Date Type Department Care Team ([facility] st Contact Info) Description 11/05/2025 Telephone [facility] [address] [place], [place] [phone] Name, MD Cedric [address] [place] [address] Social History Tobacco Use Types Packs/Day Years Used Date Smoking Tobacco: Never Passive Smoke Exposure: Never Smokeless Tobacco: Never Alcohol Use Standard [...] Description 03/20/2026 10:15 AM EDT Office Visit [facility] [address] [place] [address] Josh Dialaris [address] [place] [address] documented as of this encounter Visit Diagnoses Not on filedocumented in this encounter Additional Health Concerns Assessment Noted Time PHQ-9 Depression Total Score: 0 06/27/20 25 10:35 AM EDT documented as of this encounter Care Teams Casting Sorter Relationship Specialty Start Date End Date Name, MD Cedric [address] [place] [address] PCP - General Family Medicine 04/06/16 documented as of this encounter
--- OUTSIDE RECORDS SUMMARY | 2025-11-11 11:53 | XMS_ITS ---
Author Name [facility] Organization Unknown Results Test Name/Text Value Interpretation Date Range Source Bld gp Ab Scn SerPl Ql Negative 10/17/2025 [facility] ABO Group Bld B 10/17/2025 [facility] Rh Bld Positive 10/17/2025 [facility] N PT Bld 10.8 sec 10/17/2025 10.5 - 13.3 [facility] R[facility] INR PPP 0.9 10/17/2025 0.8 - 1.1 [facility] N AST SerPl-cCnc 16.0 unit/L 10/17/2025 5 - 40 CT _[facility] eGFRcr SerPlBld CKD-EPI 2020 101.0 mL/min/1.73m2 10/17/2025 - [facility] BUN/Creat SerPl 20.0 10/17/2025 12 - 20 [facility]_ [facility] Chloride SerPl-sCnc 100.0 mmol/L 10/17/2025 98 - 1 07 [facility] ALT SerPl-cCnc 22.0 unit/L 10/17/2025 7 - 52 CT [facility] Anion Gap SerPl Calc-sCnc 7.0 10/17/2025 5 - 14 [facility] Calcium SerPl-mCnc 9.9 mg/dL 10/17/2025 8.4 - 10.2 [facility] Creat SerPl-mCnc 0.7 mg/dL 10/17/2025 0.5 - 1 CT [facility] ALP SerPl-cCnc 85.0 unit/L 10/17/2025 34 - 104 CT [facility] Albumin SerPl-mCnc 4.5 g/dL 10/17/2025 3.5 - 5 [facility] Sodium SerPl-sCnc 136.0 mmol/L 10/17/2025 135 - 14 5 [facility] BUN SerPl-mCnc 14.0 mg/dL 10/17/2025 7 - 17 [facility] Prot SerPl-mCnc 7.5 g/dL 10/17/2025 6.4 - 8.5 [facility]_ [facility] CO2 SerPl-sCnc 29.0 mmol/L 10/17/2025 24 - 32 CT [facility] Potassium SerPl-sCnc 4.7 mmol/L 10/17/2025 3.5 - 5.1 [facility] Glucose SerPl-mCnc 88.0 mg/dL 10/17/2025 70 - 199 [facility] Bilirub SerPl-mCnc 0.7 mg/dL 10/17/2025 0.3 - 1 [facility] WBC # Bld Auto 5.8 K/mcL 10/17/2025 4 - 10.5 [facility] Erythrocyte DistWidth Bld Auto 15.0 % 10/17/2025 12.1 - 16.2 [facility] N RBC # Bld Auto 4.31 M/mcL 10/17/2025 4.2 - 5.4 [facility]_ [facility] Eosinophil # Bld Auto 0.0 K/mcL 10/17/2025 0 - 0.5 [facility] Hct VFr Bld Auto 37.3 % 10/17/2025 37 - 47 CT [facility] Hgb Bld-mCnc 12.2 g/dL Below low normal 10/17/2025 12.5 - 16 [facility] Basophils # Bld Auto 0.0 K/mcL 10/17/2025 0 - 0.2 [facility] Monocytes NFr Bld Auto 6.6 % 10/17/2025 2 - 12 [facility] Monocytes # Bld Auto 0.4 K/mcL 10/17/2025 0 - 0.8 [facility] PMV Bld Auto 11.0 FL 10/17/2025 7.4 - 11.4 [facility] MCV RBC Auto 86.4 FL 10/17/2025 78 - 100 [facility] K[facility] MCHC RBC Auto-EntMCnc 32.7 g/dL 10/17/2025 32 - 36 [facility] Lymphocytes NFr Bld Auto 34.2 % 10/17/2025 20 - 48 [facility] MCH RBC Qn Auto 28.3 pcg 10/17/2025 25 - 33 [facility] Neutrophils NFr Bld Auto 57.8 % 10/17/2025 44 - 74 [facility] Eosinophil NFr Bld Auto 0.9 % 10/17/2025 0 - 6 [facility] Basophils NFr Bld Auto 0.5 % 10/17/2025 0 - 2 [facility] Neutrophils # Bld Auto 3.3 K/mcL 10/17/2025 1.8 - 7.8 [facility] Platelet # Bld Auto 186.0 K/mcL 10/17/2025 150 - 4 50 [facility] Lymphocytes # Bld Auto 2.0 K/mcL 10/17/2025 1 - 3.2 [facility] Allergies Allergen Reaction Severity Comment Documented Date Source Statu s BARIUM SULFATE 10/17/2025 [facility] act louie Problems Problem Status Onset Date Problem Type Date of Resoluti on Source Adnexal fullness active 2024-06-27 ProblemAct C [facility] Diverticulitis active 2024-06-[address] [facility] Vitamin D deficiency active 2017-01-04 ProblemAct [facility] Contusion of lower limb, left active 2024-06-27 ProblemAct [facility] GERD (gastroesophageal reflux disease) active 2022-11-18 ProblemAct [facility] Chronic idiopathic constipation active 2024-06-27 ProblemAct [facility] Irregular periods active 2016-09-21 ProblemAct [facility] Dental calculus active 2024-08-[address] [facility] Headache active 2024-06-27 ProblemAct [facility] Dental root caries active 2024-08-02 ProblemAct [facility] Proteinuria active 2022-11-18 ProblemAct [facility] Chronic fatigue syndrome active 2017-01-04 ProblemAct [facility] Acute hip pain active 2015-11-24 Problem[address] [facility] Generalized gingival recession active 2024-08-02 ProblemAct [facility] Acute pain of right knee active 2025-02-05 ProblemAct [facility] Diverticulitis large intestine active 2022-11-18 ProblemAct [facility] Complex cyst of left ovary active 2022-11-18 ProblemAct [facility] Excessive attrition of teeth, limited to enamel active 2024-08-02 Problem[address] [facility] Ventral hernia active 2024-06-27 Problem[address] [facility] Dental caries active 2024-08-02 ProblemAct [facility] Endometrial hyperplasia active 2024-06-27 ProblemAct [facility] Vulvovaginitis active 2024-02-20 ProblemAct [facility] Metrorrhagia active 2024-06-27 ProblemAct [facility] Hydronephrosis active 2024-06-27 ProblemAct [facility] Inhalation of smoke active 2024-06-27 ProblemAct [facility] Seasonal allergic rhinitis active 2016-09-21 ProblemAct [facility] Ureteral stricture, right active 2024-06-27 ProblemAct [facility] Uterine myoma active 2018-06-12 ProblemAct [facility] Vaginal discharge active 2018-06-12 ProblemAct [facility] Recurrent UTI active 2024-06-27 ProblemAct [facility] Thickened endometrium active 2025-10-17 ProblemAct [facility] Endometrial polyp active 2024-07-27 ProblemAct [facility] Anxiety active 2024-06-27 ProblemAct [facility] Hypertension active 2025-09-21 ProblemAct [facility] 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 2025-06-27 ProblemAct [facility] Acquired hypothyroidism active 2015-11-24 ProblemAct [facility] Stenosis of ureteropelvic junction (UPJ) active 2024-06-27 ProblemAct [facility] Dyspepsia active 2024-06-27 ProblemAct [facility] S/P colon resection active 2024-06-27 ProblemAct [facility] Hemorrhoids with complication active 2024-06-27 ProblemAct [facility] Vaginal bleeding active 2018-06-12 ProblemAct C T_[facility] Mass of uterine adnexa active 2022-11-18 ProblemAct [facility] Diffuse goiter active 2017-01-04 Problem[address] [facility] Kidney stone active 2023-01-09 ProblemAct [facility] Missing teeth, acquired active 2024-08-02 ProblemAct [facility] Microscopic hematuria active 2024-06-27 ProblemAct [facility] Vaginal bleeding active 2018-06-12 ProblemAct C T_[facility] Hemorrhoids with complication active 2024-06-27 ProblemAct [facility] Seroma due to trauma (CMS/HCC V24) active 2024-06-27 ProblemAct [facility] PVNS (pigmented villonodular synovitis) active 2025-10-17 ProblemAct [facility] Mass of uterine adnexa active 2022-11-18 ProblemAct [facility] Microscopic hematuria active 2024-06-27 ProblemAct [facility] Diffuse goiter active 2017-01-04 Problem[address] [facility] Dysuria active 2024-06-27 ProblemAct [facility] Tubular adenoma active 2018-07-[address] [facility] Encounters Encounter Type Encounter Reason Primary Diagnosis Location Date Ambulatory Consult Consult [facility] 10/17/2025 Ambulatory Pain in right knee Pain in right knee [facility] 10/17/2025 Care Team Organization Name Specialty Phone Email Start Date End [facility] PHYSICIAN Primary Care 10/17/2025 [facility] NO PHYSICIAN Primary Care 10/17/2025
--- OUTSIDE RECORDS SUMMARY | 2025-11-11 11:53 | XMS_ITS | Clinical Summary ---
Author Organization [facility] Address [address] [place] [address] Care Team Providers Care Paste Mixing Supervisor Name Role Phone Name, Cedric Primary Care Provider [phone] Allergies Active Allergy Reactions Criticality Noted Date Comments Barium Sulfate Angioedema High 10/17/2025 Ceftriaxone Anaphylaxis High 09/23/2023 Iodinated Contrast Media Anaphylaxis,Dyspnea High Lactose Diarrhea Low 11/18/2022 Whole milk Magnesium Hydroxide Rash High 05/25/2024 Medications LEVOXYL 75 mcg tablet TAKE 1 TABLET BY MOUTH EVERY MORNING ON AN EMPTY STOMACH 6 05/29/2018 Active omeprazole (PriLOSEC) 20 mg capsule Take 20 mg by mouth daily. 0 06/08/2018 Active omeprazole (PriLOSEC) 20 mg capsule Take 20 mg by mouth daily. Active ciprofloxacin (CIPRO) 500 mg tablet Take 500 mg by mouth 2 times a day. Active ibuprofen (MOTRIN) 600 mg tablet Take 600 mg by mouth every 6 hours as needed for pain. Active ferrous sulfate 325 mg (65 mg iron) tablet Take 325 mg by mouth daily with breakfast. Active Jardiance 10 mg Take 10 mg by mouth daily. 03/13/2025 Active lisinopriL (PRINIVIL,ZESTR IL) 10 mg tablet Take 10 mg by mouth daily. 04/24/2025 Active bisacodyL (DULCOLAX) 5 mg EC tablet SMARTSI Tablet(s) By Mouth Daily 10/21/2025 Active linaCLOtide (Linzess) 145 mcg capsule Take 145 mcg by mouth once a day. 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) 10/17/20 Thickened endometrium 10/17/2025 Hypertension 09/21/2025 Pigmented villonodular synovitis of right knee 0 06/27/2025 Acute pain of right knee 02/05/2025 Dental calculus 08/02/2024 Dental root caries 08/02/2024 Generalized gingival recession 08/02/2024 Missing teeth, acquired 08/02/2024 Endometrial polyp 07/27/2024 Adnexal fullness 06/27/2024 Overview (10/29/2025): Right side History of simple endometrial hyperplasia in 2019 Anxiety 06/27/2024 Chronic idiopathic constipation 06/27/2024 Diverticulitis 06/27/2024 Dyspepsia 06/27/2024 Endometrial hyperplasia 06/27/2024 Hemorrhoids with complication 06/27/2024 Hydronephrosis 06/27/2024 Metrorrhagia 06/27/2024 Overview (10/29/2025): History of simple endometrial hyperplasia Microscopic hematuria 06/27/2024 Recurrent UTI 06/27/2024 Overview (10/29/2025): Urine dip done. Will treat with Macrobid 500 mg PO BID for 5 days. Urine culture sent. Instructions given to the pt to call if symptoms persist or do not improve and any fever, flank pain or abdominal pain . Will fu with the pt in 2 weeks for emb S/P colon resection 06/27/2024 Ureteral stricture, right 06/27/2024 Ventral hernia 06/27/2024 Vulvovaginitis 02/20/2024 Overview (10/29/2025): Miriam versus atrophic Calculus of kidney 01/09/2023 Complex cyst of left ovary 11/18/2022 Overview (10/29/2025): She had unilateral oophorectomy GERD (gastroesophageal reflux disease) 3 Mass of uterine adnexa 11/18/2022 Proteinuria 11/18/2022 Diverticulitis of intestine, part unspecified, without perforation or abscess without bleeding 01/25/2022 Overview (10/29/2025): Recurrent. Patient underwent exploratory laparotomy, sigmoid resection, primary colorectal EEA anastomosis, and rigid proctoscopy on 08/11/23. Tubular adenoma 07/25/2018 Uterine leiomyoma 06/12/2018 Vaginal bleeding 06/12/2018 Vaginal discharge 06/12/2018 Chronic fatigue syndrome 01/04/2017 Diffuse goiter 01/04/2017 Vitamin D deficiency 01/04/2017 Abnormal uterine bleeding 11/12/2016 Irregular periods 09/21/2016 Seasonal allergic rhinitis 09/21/2016 Acquired hypothyroidism 11/24/2015 Encounters Date Type Department Care Team Description 10/29/2025 11:05 AM EST - 10/29/2025 11:59 PM EST Hospital Encounter [facility] Xray [address] [place] [address] Right knee pain, unspecified chronicity Discharge Disposition: Home or Self Care () 10/29/2025 10:45 AM EST Office Visit [facility] [address] [place] [address] Jameson Chan MD Chronic pain of right knee (Primary Dx); 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; Other secondary osteoarthritis of right knee 10/24/2025 Transcribe Orders [address] Orthopedic Department [address] [place] [address] Wojciech Frost MD 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) 09/23/2025 Orders Only External Imaging [address] [place] [address] Radiology, External from Last 3 Months Family History Medical History Relation Name Comments Pancreatic cancer Mother Relation Name Status Comments Father Mother Social History Tobacco Use Types Packs/Day Years Used Date Smoking Tobacco: Never Smokeless Tobacco: Never Alcohol Use Standard Drinks/Week Comments No 0 (1 standard drink = 0.6 oz pur e alcohol) Comments No Sex and Gender Information Value Date Recorded Sex Assigned at Not on file Legal Sex Female 7:16 PM EDT Gender Identity Not on file Sexual Orientation Not on file 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 Not on file Not on file Not on file Not on file Not on file Not on file Not on file Last Filed Vital Signs Vital Sign Reading Time Taken Comments Blood Pressure 110/77 10/29/2025 10:54 AM EST Pulse 67 10/29/2025 10:54 AM EST Temperature - - Respiratory Rate - - Oxygen Saturation - - Inhaled Oxygen Concentration - - Weight 62.1 kg (137 lb) 10/29/2025 10:54 AM EST Height 157.5 cm (5' 2 ) 10/29/2025 10:54 AM EST Body Mass Index 25.06 10/29/2025 10:54 AM EST Plan of Treatment Upcoming Encounters Date Type Department Care Team (Late st Contact Info) Description 11/19/2025 9:00 AM EST Appointment [facility] Interventional Radiology [address] [place] [address] 11/26/2025 10:15 AM EST Follow-Up [facility] [address] [place] [address] Jameson Chan MD [address] [place] [address] Health Maintenance Due Date Last Done Comments Cologuard 1968 Colon Cancer Screening 1968 Colonoscopy 1968 FOBT / Fit Test 1968 Sigmoidoscopy 1968 Pneumococcal Vaccine: 50+ Ye ars (1 of 1 - PCV) 2018 Pap Smear 06/19/2021 06/19/2018 Mammogram 04/15/2022 04/15/2020, 04/0 01/2019, 01/10/2018 Cervical Cancer Screening 06/19/2023 HPV and Pap Smear 06/19/2023 06/19/2018 Alcohol/Substance Use Screening 11/14/2024 Depression Screening and Follow-Up 11/14/2024 Social Drivers of Health Eileen ual Screening 11/14/2024 Influenza Vaccine (#1) 2025 , 09/16/2020, 08/09/2018, Additional history exists COVID-19 Vaccine (3 - 2024-2 6 season) 2025 04/21/2021, 03/24/2021 Basic Metabolic Panel 10/17/2026 10/17/2025 , 09/10/2025, 08/29/2025 DTaP,Tdap,and Td Vaccines (2 - Td or Tdap) 05/31/2027 05/31/2017 Diabetes Screening 10/17/2028 10/17/2025, 1 , 08/29/2025 Zoster Vaccines Completed 01/24/2023, 11/22/2022 Hepatitis B Vaccines Completed 03/29/2023, 01/25/20 HIV Screening Completed 10/03/2024, 10/03/2024 Hepatitis C Screening Completed 10/03/2024 Procedures * Due to [place] [employer] law, this organization might not be sharing negative HIV tests. Procedure Name Priority Date/Time Associated Diagnosis Comments XR KNEE 4+ VW RIGHT Routine 10/29/2025 1 1:15 AM EST Right knee pain, unspecified chronicity [facility] P[facility] W/HPV, MRNA E6/E7, REFLEX Routine 06/19/2018 3:38 PM EDT Pap smear for cervical cancer screening from Last 3 Months or Most Recently Relevant to Health Maintenance Results * Due to [place] [employer] law, this organization might not be sharing negative HIV tests. * XR Knee Right 4+ Views (10/29/2025 11:15 AM EST) Anatomical Region Laterality Modality Lower Extremities, Knee Right Computed Radiography 10/29/2025 2:56 PM EST Impressions 10/29/2025 3:00 PM EST No radiographic evidence of acute fracture or dislocation. Moderate patellofemoral osteoarthritis. No substantial knee joint effusion. No soft tissue mineralization. If this radiology report contains a blank impression section, it is an incomplete radiology report. Please contact the interpreting radiologist or applicable radiology division as soon as possible to obtain the completed interpretation. Workstation ID: [id number] Narrative 10/29/2025 3:00 PM EST COMPARISON: MRI 09/23/2025 FINDINGS AND Resulting Agency Comment [id number] Procedure Note Jesus Lobo MD - 10/29/2025 COMPARISON: MRI 09/23/2025 FINDINGS AND IMPRESSION: No radiographic evidence of acute fracture or dislocation. Moderatepatellofemoral osteoarthritis. No substantial knee joint effusion. No softtissue mineralization. If this radiology report contains a blank impression section, it is anincomplete radiology report. Please contact the interpreting radiologistor applicable radiology division as soon as possible to obtain thecompleted interpretation. Workstation ID: [id number] us Jameson Chan MD IMG XR PROCEDURES Final Result * [facility] Pap w/HPV, mRNA E6/E7, Reflex 16/18/45 (06/19/2018 3:38 PM EDT) [facility] TIS, mRNA E6/E7 Sophia See Below [place] Comment: TIS,mRNA E6/E7 SOPHIA CLINICAL INFORMATION: None given LMP: NONE GIVEN PREV. PAP: NONE GIVEN PREV. BX: NONE GIVEN SOURCE: Cervix, Endocervix STATEMENT OF ADEQUACY: Satisfactory for evaluation. Endocervical/transformation zone component present. INTERPRETATION/RESULT: Negative for intraepithelial lesion or malignancy. COMMENT: This case could not be evaluated with computer assisted technology. The slide was manually screened according to routine procedures. [employer] SUPERVISOR: TAMIA CT(ASCP) CT screening location: [address] [address] REVIEW [employer]UCT[employer] SUPERVISOR: CHRISTIANA CT(ASCP) CT screening location: [place] [address] HPV mRNA E6/E7 Not Detected REFERENCE RANGE: Not Detected This test was performed using the APTIMA HPV Assay ([employer] This assay detects E6/E7 viral messenger RNA (mRNA) from 14 high-risk HPV types (16,18,31,33,35,39,45,51,52,56,58,59,66,68). The analytical performance characteristics of this assay have been determined by [employer]. The modifications have not been cleared or approved by the FDA. This assay has been validated pursuant to the CLIA regulations and is used for clinical purposes. EXPLANATORY NOTE: The Pap is a screening test for cervical cancer. It is not a diagnostic test and is subject to false negative and false positive results. It is most reliable when a satisfactory sample, regularly obtained, is submitted with relevant clinical findings and history, and when the Pap result is evaluated along with historic and current clinical information. Biopsy specimen (specimen) Cervix uteri structure / Unknown 06/19/2018 3:38 PM EDT Becca Lira MD LAB [facility] ORDER TEX Final Result [facility] [address], [place] [address], [employer] [facility] [address], [place] [address], [place] [phone] from Last 3 Months or Most Recently Relevant to Health Maintenance Insurance HSNO/[place] [address] [address] Care Teams Paste Mixing Supervisor Relationship Specialty Start Date End Date Name, Cedric [address] [place] [address] PCP - General 06/02/17
--- OUTSIDE RECORDS SUMMARY | 2025-11-11 11:53 | XMS_ITS | Clinical Summary ---
Author Organization [employer] [facility] Address [address] [place] [address] Phone Care Team Providers Care Advisory Services Associate Name Role Phone Physician, No Pcp Primary Care Provider Unavaila ble Allergies Active Allergy Reactions Criticality Noted Date Comments Barium Sulfate 10/17/2025 Medications levothyroxine (SYNTHROID, LEVOTHROID) 75 mcg tablet Take 1 tablet (75 mcg total) by mouth 1 (one) time each day. before breakfast Active Jardiance 10 mg tablet Take 1 tablet (10 mg total) by mouth 1 (one) time each day. Active lisinopriL (PRINIVIL,ZESTR IL) 10 mg tablet Take 1 tablet (10 mg total) by mouth 1 (one) time each day. 5 04/24/20 26 Active linaCLOtide (Linzess) 145 mcg capsule Take by mouth 1 (one) time each day. 1 Active docusate sodium (COLACE) 100 mg capsule Take 1 capsule (100 mg total) by mouth. at bedtime 1 Active traMADoL (ULTRAM) 50 mg tablet TAKE 1 TABLET BY MOUTH EVERY 6 HOURS NEEDED FOR SEVERE PAIN FOR UP TO 5 DAYS 5 Active acetaminophen (TYLENOL) 500 mg tablet Take 2 tablets (1,000 mg total) by mouth. 3 Active ibuprofen (ADVIL,MOTRIN) 400 mg tablet TAKE 1 TABLET ORALLY 3 TIMES A DAY NEEDED FOR FEVER OR PAIN 5 Active lidocaine-menth ol 4-1 % adhesive patch,medicated Apply topically 1 (one) time if needed. 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 25 Thickened endometrium 10/17/2025 Hypertension 09/21/2025 Pigmented villonodular synovitis of right knee 0 06/27/2025 Acute pain of right knee 02/05/2025 Dental calculus 08/02/2024 Dental caries 08/02/2024 Generalized gingival recession 08/02/2024 Excessive attrition of teeth, limited to enamel 08/02/2024 Missing teeth, acquired 08/02/2024 Dental root caries 08/02/2024 Endometrial polyp 07/27/2024 Adnexal fullness 06/27/2024 Anxiety 06/27/2024 Contusion of lower limb, left 06/27/2024 Diverticulitis 06/27/2024 Dyspepsia 06/27/2024 Dysuria 06/27/2024 Endometrial hyperplasia 06/27/2024 Headache 06/27/2024 Chronic idiopathic constipation 06/27/2024 Hemorrhoids with complication 06/27/2024 Hydronephrosis 06/27/2024 Inhalation of smoke 06/27/2024 Metrorrhagia 06/27/2024 Microscopic hematuria 06/27/2024 Recurrent UTI 06/27/2024 S/P colon resection 06/27/2024 Seroma due to trauma 06/27/2024 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 Patient underwent exploratory laparotomy, sigmoid resection, primary colorectal EEA anastomosis, and rigid proctoscopy on 08/11/23. GERD (gastroesophageal reflux disease) Mass of uterine adnexa 11/18/2022 Proteinuria 11/18/2022 Diverticulitis of intestine, part unspecified, without perforation or abscess without bleeding 01/25/2022 Tubular adenoma 07/25/2018 Uterine myoma 06/12/2018 Vaginal bleeding 06/12/2018 Vaginal discharge 06/12/2018 Chronic fatigue syndrome 01/04/2017 Diffuse goiter 01/04/2017 Vitamin D deficiency 01/04/2017 Abnormal uterine bleeding 11/12/2016 Irregular periods 09/21/2016 Seasonal allergic rhinitis 09/21/2016 Acquired hypothyroidism 11/24/2015 Acute hip pain 11/24/2015 Encounters Date Type Department Care Team Description 10/17/2025 12:00 PM EST Lab Draw [facility] [address] [place] [address] Pre-op testing; Mass of right knee 10/17/2025 11:00 AM EST Consult [facility]opedic On[facility] - [place] [address] [place] [address] Jonh Summers PA PVNS (pigmented villonodular synovitis) (Primary Dx) 10/17/2025 9:44 AM EST - 10/17/2025 11:59 PM EST Hospital Encounter [facility] [place] [address] [place] [address] Chronic pain of right knee Discharge Disposition: Home or Self Care 09/23/2025 6:37 PM EST - 09/23/2025 11:59 PM EST Hospital Encounter [facility] [address] [place] [id number] Villonodular synovitis (pigmented), right knee Discharge Disposition: Home or Self Care from Last 3 Months Surgical History Surgery Date Site/Laterality Comments SMALL INTESTINE SURGERY 11/14/2022 - 11/13/2023 6 cm ABDOMINAL HERNIA REPAIR 11/14/2023 - 11/13/2024 Medical History Medical History Date Comments Diverticulitis Family History Medical History Relation Name Comments Cancer Mother Relation Name Status Comments Mother Social History Tobacco Use Types Packs/Day Years Used Date Smoking Tobacco: Never Smokeless Tobacco: Never Tobacco Cessation:Counseling Given: Not Answered Alcohol Use Standard Drinks/Week Comments Not Currently 0 (1 standard drink = 0.6 oz pur e alcohol) Comments Unknown Sex and Gender Information Value Date Recorded Sex Assigned at Female 06/14/2025 4:22 PM EDT Legal Sex Female 2:21 PM EDT Gender Identity Not on file Sexual Orientation Not on file Last Filed Vital Signs Vital Sign Reading Time Taken Comments Blood Pressure 110/64 10/17/2025 10:11 AM EST Pulse 67 10/17/2025 10:11 AM EST Temperature 36.6 C (97.9 F) 10/17/2025 10:11 AM EST Respiratory Rate - - Oxygen Saturation 98% 10/17/2025 10:11 AM EST Inhaled Oxygen Concentration - - Weight 62.6 kg (138 lb) 10/17/2025 10:11 AM EST Height 154.9 cm (5' 1 ) 10/17/2025 10:11 AM EST Body Mass Index 26.07 10/17/2025 10:11 AM EST Plan of Treatment Upcoming Encounters Date Type Department Care Team (Late st Contact Info) Description 12/24/2025 1:00 PM EST Office Visit [facility] - [place] [address] [place] [address] Jarad Quevedo MD [address] [place], [place] [id number] Health Maintenance Due Date Last Done Comments Breast Cancer Screening 1968 Colorectal Cancer Screening: Colonoscopy 1968 Cervical Cancer Screening: Pap Smear 1989 Pneumococcal Vaccine: 50+ Years (1 of 1 - PCV) 2018 RSV Immunization Adult Patients (1 - Risk 50-74 years 1-dose series) 2018 Depression Screening 11/14/2024 Social Influencers of Health Screening 04/12/2025 COVID-19 Vaccine ( - season) 2025 04/21/2021, 03/24/2021 Influenza Vaccine (#1) 2025 , 09/16/2020, 08/09/2018, Additional history exists Hypertension/CHF/CAD Annual BMP Blood Test 10/17/2026 10/17/2025, 09/10/2025, 08/29/2025, Additional history exists DTaP,Tdap,and Td Vaccines (2 - Td or Tdap) 05/31/2027 05/31/2017 Cholesterol Screening (Lipid Panel) 03/12/2030 03/12/2025 Zoster Vaccines Completed 01/24/2023, 11/22/2022 Hepatitis B [...] Diagnosis Comments CBC WITH AUTO DIFFERENTIAL Routine 10/17/2025 12:01 PM EST Pre-op testing Mass of right knee PROTHROMBIN TIME WITH INR Routine 10/17/2025 12:01 PM EST Pre-op testing Mass of right knee TYPE AND SCREEN Routine 10/17/2025 12:01 PM EST Pre-op testing Mass of right knee COMPREHENSIVE METABOLIC PANEL Routine 10/17/2025 12:01 PM EST Pre-op testing Mass of right knee CBC AND DIFFERENTIAL Routine 10/17/2025 12:01 PM EST Pre-op testing Mass of right knee XR KNEE 3 VIEWS RIGHT Routine 10/17/2025 9:55 AM EST Chronic pain of right knee MR KNEE WO CONTRAST RIGHT Routine 09/23/2025 7:40 PM EST Villonodular synovitis (pigmented), right knee from Last 3 Months Results * (ABNORMAL) CBC auto differential (10/17/2025 12:01 PM [facility] [email or web address] WBC 5.8 4.0 - 10.5 K/mcL LAB HEMETOLOGY METHOD 10/17/2025 4:04 PM [facility] RBC 4.31 4.20 - 5.40 M/mcL LAB HEMETOLOGY METHOD 10/17/2025 4:04 PM [facility] Hemoglobin 12.2(L) 12.5 - 16.0 g/dL LAB HEMETOLOGY METHOD 10/17/2025 4:04 PM [facility] Hematocrit 37.3 37.0 - 47.0 % LAB HEMETOLOGY METHOD 10/17/2025 4:04 PM [facility] MCV 86.4 78.0 - 100.0 FL LAB HEMETOLOGY METHOD 10/17/2025 4:04 PM [facility] MCH 28.3 25.0 - 33.0 pcg LAB HEMETOLOGY METHOD 10/17/2025 4:04 PM [facility] MCHC 32.7 32.0 - 36.0 g/dL LAB HEMETOLOGY METHOD 10/17/2025 4:04 PM [facility] RDW 15.0 12.1 - 16.2 % LAB HEMETOLOGY METHOD 10/17/2025 4:04 PM [facility] Platelets 186 150 - 450 K/mcL LAB HEMETOLOGY METHOD 10/17/2025 4:04 PM [facility] MPV 11.0 7.4 - 11.4 FL LAB HEMETOLOGY METHOD 10/17/2025 4:04 PM [facility] Neutrophils Relative 57.8 44.0 - 74.0 % LAB HEMETOLOGY METHOD 10/17/2025 4:04 PM [facility] Lymphocytes Relative 34.2 20.0 - 48.0 % LAB HEMETOLOGY METHOD 10/17/2025 4:04 PM EST [facility] Monocytes Relative 6.6 2.0 - 12.0 % LAB HEMETOLOGY METHOD 10/17/2025 4:04 PM [facility] Eosinophils Relative 0.9 0.0 - 6.0 % LAB HEMETOLOGY METHOD 10/17/2025 4:04 PM EST [facility] Basophils Relative 0.5 0.0 - 2.0 % LAB HEMETOLOGY METHOD 10/17/2025 4:04 PM EST [facility] Neutrophils Absolute 3.30 1.80 - 7.80 K/mcL LAB HEMETOLOGY METHOD 10/17/2025 4:04 PM [facility] Lymphocytes Absolute 2.00 1.00 - 3.20 K/mcL LAB HEMETOLOGY METHOD 10/17/2025 4:04 PM EST [facility] Monocytes Absolute 0.40 0.00 - 0.80 K/mcL LAB HEMETOLOGY METHOD 10/17/2025 4:04 PM EST [facility] Eosinophils Absolute 0.00 0.00 - 0.50 K/mcL LAB HEMETOLOGY METHOD 10/17/2025 4:04 PM [facility] Basophils Absolute 0.00 0.00 - 0.20 K/mcL LAB HEMETOLOGY METHOD 10/17/2025 4:04 PM EST [facility] Blood Venous blood specimen / Unknown Venipuncture / Unknown 10/17/2025 12:01 PM EST 10/17/2025 3:41 PM EST Jarad Quevedo MD LAB BLOOD ORDERABLES Final Result [facility] [address] [place] [address], [place] [phone] * Prothrombin time with INR (10/17/2025 12:01 PM EST) Protime 10.8 10.5 - 13.3 sec LAB COAGULATION METHOD 10/17/2025 4:25 PM EST [facility] INR 0.9 0.8 - 1.1 LAB COAGULATION METHOD 10/17/2025 4:25 PM EST [facility] Blood Venous blood specimen / Unknown Venipuncture / Unknown 10/17/2025 12:01 PM EST 10/17/2025 3:41 PM EST Narrative [facility] - 10/17/2025 4:25 PM EST Std. Therapy 2.0-3.0 INR High Dose Therapy 3.0-4.5 INR Ranges may vary depending on clinical indications and protocol. us Jarad Quevedo MD LAB BLOOD ORDERABLES Final Result Performing Organization Address [place]/[facility]/ZIP Co de Phone Number [facility] [address] [place] [address], [place] [phone] * Type and screen (10/17/2025 12:01 PM EST) ABO Group B 10/17/2025 5:19 PM EST [facility] Rh Type Positive 10/17/2025 5:19 PM EST [facility] Comment:No Blood Bank histor y. Need ABO/Rh ([id number]) ordered and collected prior to transfusion. Antibody Screen Negative 10/17/2025 5:19 PM EST [facility] Blood Venous blood specimen / Unknown Venipuncture / Unknown 10/17/2025 12:01 PM EST 10/17/2025 3:25 PM EST us Jarad Quevedo MD LAB BLOOD BANK TEST ORDERA BLES Edited Result - Final [facility] [address] [place] [address], [place] [phone] * Comprehensive metabolic panel (10/17/2025 12:01 PM EST) [facility] Sodium 136 135 - 145 mmol/L LAB CHEMISTRY METHOD 10/17/2025 4:18 PM [facility] Potassium 4.7 3.5 - 5.1 mmol/L LAB CHEMISTRY METHOD 10/17/2025 4:18 PM [facility] Chloride 100 98 - 107 mmol/L LAB CHEMISTRY METHOD 10/17/2025 4:18 PM [facility] CO2 29 24 - 32 mmol/L LAB CHEMISTRY METHOD 10/17/2025 4:18 PM [facility] Anion Gap 7 5 - 14 LAB CHEMISTRY METHOD 10/17/2025 4:18 PM [facility] Glucose 88 70 - 199 mg/dL LAB CHEMISTRY METHOD 10/17/2025 4:18 PM [facility] BUN 14 7 - 17 mg/dL LAB CHEMISTRY METHOD 10/17/2025 4:18 PM [facility] Creatinine 0.70 0.50 - 1.00 mg/dL LAB CHEMISTRY METHOD 10/17/2025 4:18 PM [facility] eGFR 101 >=60 mL/min/1. 73m2 LAB CHEMISTRY METHOD 10/17/2025 4:18 PM [facility] Comment:Calculation based on the Chronic Kidney Disease Epidemiology Collaboration (CKD-EPI) equation refit without adjustment for race. BUN/Creatinine Ratio 20.0 12.0 - 20.0 LAB CHEMISTRY METHOD 10/17/2025 4:18 PM [facility] Calcium 9.9 8.4 - 10.2 mg/dL LAB CHEMISTRY METHOD 10/17/2025 4:18 PM [facility] AST (SGOT) 16 5 - 40 unit/L LAB CHEMISTRY METHOD 10/17/2025 4:18 PM [facility] ALT (SGPT) 22 7 - 52 unit/L LAB CHEMISTRY METHOD 10/17/2025 4:18 PM EST [facility] Alkaline Phosphatase 85 34 - 104 unit/L LAB CHEMISTRY METHOD 10/17/2025 4:18 PM EST [facility] Total Protein 7.5 6.4 - 8.5 g/dL LAB CHEMISTRY METHOD 10/17/2025 4:18 PM EST [facility] Albumin 4.5 3.5 - 5.0 g/dL LAB CHEMISTRY METHOD 10/17/2025 4:18 PM EST [facility] Total Bilirubin 0.7 0.3 - 1.0 mg/dL LAB CHEMISTRY METHOD 10/17/2025 4:18 PM EST [facility] Blood Venous blood specimen / Unknown Venipuncture / Unknown 10/17/2025 12:01 PM EST 10/17/2025 3:38 PM EST Jarad Quevedo MD LAB BLOOD ORDERABLES Final Result Performing Organization Address City/State/[facility] Co de Phone Number [facility] [address] [place] [address], [place] [phone] * XR Knee 3 Views Right (10/17/2025 9:55 AM EST) Anatomical Region Laterality Modality Lower Extremities, Knee Right Radiogra phic Imaging 11/04/2025 8:53 AM EST Impressions 11/04/2025 8:54 AM EST Mild degenerative changes seen in the lateral patellofemoral joint margins. -------- FINAL REPORT -------- Dictated By: Deric Hall Dictated Date: 11/04/2025 08:53 ET Assigned Physician: Deric Hall Reviewed and Electronically Signed By: Deric Hall Signed Date: 11/04/2025 08:54 ET Workstation ID: [id number] Transcribed By: Self Edit Transcribed Date: 11/04/2025 08:53 ET Narrative 11/04/2025 8:54 AM EST STUDY: XR KNEE 3 VIEWS RIGHT INDICATION: Right knee pain COMPARISON: None FINDINGS: The femorotibial joint spaces are preserved. Mild sclerosis of the lateral patellofemoral joint with mild narrowing. No joint effusion. Procedure Note Vern Hall MD - 11/04/2025 STUDY: XR KNEE 3 VIEWS RIGHT INDICATION: Right knee pain COMPARISON: None FINDINGS: The femorotibial joint spaces are preserved. Mild sclerosis ofthe lateral patellofemoral joint with mild narrowing. No joint effusion. IMPRESSION: Mild degenerative changes seen in the lateral patellofemoral jointmargins. -------- FINAL REPORT -------- Dictated By: Deric Hall Dictated Date: 11/04/2025 08:53 ET Assigned Physician: Deric Hall Reviewed and Electronically Signed By: Deric Hall Signed Date: 11/04/2025 08:54 ET Workstation ID: [id number] Transcribed By: Self Edit Transcribed Date: 11/04/2025 08:53 ET us Jarad Quevedo MD IMG XR PROCEDURES Final Re sult * MR Knee wo Contrast Right (09/23/2025 [...] Signed Date: 09/24/2025 04:43 ET Workstation ID: [id number] Transcribed By: Self Edit Transcribed Date: 09/24/2025 [...] Signed Date: 09/24/2025 04:43 ET Workstation ID: [id number] Transcribed By: Self Edit Transcribed Date: 09/24/2025 04:39 ET Grace [facility] IMG MRI PROCEDURES Final Result from Last 3 Months Insurance MEDICAID ADVANTAGE GENERIC MEDICAID ADVANTAGE Care Teams Advisory Services Associate Relationship Specialty Start Date End Date Physician, No Pcp PCP - General 06/14/25
--- OUTSIDE RECORDS SUMMARY | 2025-11-11 11:53 | XMS_ITS | Clinical Summary ---
Author Organization [facility] Address [address] [facility] [facility] [address] [place] [address] Phone Care Team Providers Care Promotions Assistant Name Role Phone Name, Cedric NICK Primary Care Provider [phone] Allergies Active Allergy Reactions Criticality Noted Date [...] each day 09/30/2021 Active Deep Sea Nasal Sesser 0.65 % nasal spray 11/04/2021 Active polyethylene [...] time each day 90 tablet 3 04/24/2025 Active Jardiance 10 MG tablet Take 10 mg by mouth 1 (one) time each day Active Active Problems Problem Noted Date Diagnosed Date Hypertension 09/21/2025 Proteinuria, not otherwise specified 01/09/2023 Nephrolithiasis 01/09/2023 Mass of uterine adnexa 11/18/2022 Vitamin D deficiency 01/25/2022 Diverticulitis of intestine [...] Date Type Department Care Team Description 09/23/2025 10:00 AM EST Office Visit [facility] [address] [address] Buddy Ortiz MD Proteinuria, not otherwise specified (Primary Dx); Nephrolithiasis; Hypertension; Vitamin D deficiency, not otherwise specified 09/20/2025 Orders Only [facility] [address] [address] Buddy Ortiz MD Nephrolithiasis; Proteinuria, not otherwise specified; Vitamin D deficiency, not otherwise specified from [...] Sign Reading Time Taken Comments Blood Pressure 110/70 09/23/2025 9:57 AM EST Pulse 97 09/23/2025 9:57 AM EST Temperature - - Respiratory Rate - - Oxygen Saturation 97% 09/23/2025 9:57 AM EST Inhaled Oxygen Concentration - - Weight 61.7 kg (136 lb) 09/23/2025 9:57 AM EST Height 154.9 cm (5' 1 ) 09/20/2023 10:03 AM EST Body Mass Index 25.7 09/20/2023 10:03 AM EST Plan of Treatment Upcoming Encounters Date Type Department Care Team (Late st Contact Info) Description 09/23/2026 10:20 AM EST [facility] Visit [facility] [address] [phone] Buddy Ortiz MD [address] [phone] Health Maintenance Due Date Last Done Comments Breast Cancer Screening 1968 Pneumococcal Vaccine: 50+ Ye ars (1 of 2 - PCV) 1987 Colorectal Cancer Screening: Annual FOBT 2017 Colorectal Cancer Screening: Colonoscopy 2017 Colorectal Cancer Screening: Sigmoidoscopy 2017 Hepatitis B Vaccine (3 of 3 - 19+ 3-dose series) 07/27/2023 03/29/2023, 01/24/2023 Influenza Vaccine (#1) 2025 , 09/16/2020, 08/09/2018, Additional history exists [place] [facility] Medicaid Care Teams Promotions Assistant Relationship Specialty Start Date End Date Name, MD Cedric [address] [place] [phone] PCP - General Internal Medicine 02/02/22
--- OUTSIDE RECORDS SUMMARY | 2025-11-11 11:53 | XMS_ITS | Encounter Summary ---
Author Organization [facility] Address [address] [facility] [address] [place] [address] Care Team Providers Care B2B Outside Sales Representative Name Role Phone Name, Cedric NICK Primary Care Provider [phone] Encounter Details Date Type Department Care Team (Latest Contact Info) Description 04/01/2022 Abstract [facility] CONVERSIONS Dental, Provider, DDS Social History [...] Description 03/20/2026 10:15 AM EDT Office Visit [facility] ADULT DENTAL [address] [place] [address] Jayro, Iza [address] [place] [address] documented as of this encounter Visit Diagnoses Not on filedocumented in this encounter Care Teams B2B Outside Sales Representative Relationship Specialty Start Date End Date Name, MD Cedric [address] [place] [address] PCP - General Family Medicine 04/06/16 documented as of this encounter
== END 2025-11-11 11:00 | disposition home or self-care (01) ==
LOC: HO.HUSH 10:28
PROVIDERS: PCP Internal Medicine Geriatric Medicine; Visit Provider Nurse Practitioner Family
DX: N20.0 Calculus of kidney (principal); N13.30 Unspecified hydronephrosis
CPT/HCPCS: 99213

== ENCOUNTER → 2025-11-11 | Outpatient (BNVA) | payer MEDICAID, SELFPAY | PROVIDERS: PCP Internal Medicine Geriatric Medicine; Visit Provider Nurse Practitioner Family | DX: N13.2 Hydronephrosis with renal and ureteral calculous obstruction (principal); R39.15 Urgency of urination | CPT/HCPCS: 51798; 81003; 99212 ==